=== PATIENT | male | born 1955 ===

== ENCOUNTER 2020-06-07 15:56 | Inpatient (IN) | payer OTHER, SELFPAY ==
[2020-06-07] VITALS (9 sets, daily range): BP systolic 97–129; BP diastolic 53–78; PULSE 81–93; RESP 17–23; TEMP 36.5–37.3; O2SAT 95–97; BMI 31.1
--- NOTE | 2020-06-07 | ECG_ITS ---
Test Reason : SYNCOPY Blood Pressure : / mmHG Vent. Rate : 076 BPM Atrial Rate : 076 BPM P-R Int : 142 ms QRS Dur : 106 ms QT Int : 428 ms P-R-T Axes : 030 061 037 degrees QTc Int : 481 ms Normal sinus rhythm Prolonged QT Abnormal ECG No previous ECGs available Referred By: Toño Shaikh Electronically Signed By:Mayco Londono
--- NOTE | ~2020-06-07 | CT_ITS ---
EXAMINATION: CT HEAD WITHOUT CONTRAST CLINICAL INFORMATION: Trauma COMPARISON: None TECHNIQUE: Contiguous axial imaging was performed from the skull base to vertex without intravenous administration of contrast. This CT examination was performed using dose optimization techniques as appropriate, variously including the following: *Automated exposure control *Adjustment of mA and/or kV according to patient size (this includes techniques or standardized protocols for targeted exams where dose is matched to indication/reason for exam; i.e. extremities or head) *Use of iterative reconstruction technique DLP: 640 mGy-cm FINDINGS: There is no evidence of acute intracranial hemorrhage or territorial infarction. No abnormal mass effect or midline shift is seen. [place] to white matter differentiation is well preserved. No extra-axial fluid collections are identified. The ventricles are normal in size. There is no abnormal attenuation within the brain parenchyma. The osseous structures and soft tissues are normal. The mastoid air cells and visualized portions of the paranasal sinuses are well aerated. CT/CT head/brain wo con IMPRESSION: No acute intracranial pathology.
--- NOTE | ~2020-06-07 | XR_ITS ---
EXAMINATION: XR CHEST CLINICAL INFORMATION: Syncope. COMPARISON: None TECHNIQUE: Frontal view of the chest was obtained. FINDINGS: The lungs are well-expanded without acute pneumonic process. The heart size and pulmonary vascularity is normal. No gross bony abnormality. XR/XR chest 1V IMPRESSION: No acute cardiopulmonary process seen.
[2020-06-07 16:06] LABS: Glucose, Whole Blood 115 mg/dL (60-115)
--- NOTE | 2020-06-07 16:08 | ECG_ITS ---
Test Reason : SYNCOPE Blood Pressure : / mmHG Vent. Rate : 080 BPM Atrial Rate : 080 BPM P-R Int : 130 ms QRS Dur : 100 ms QT Int : 464 ms P-R-T Axes : 030 047 037 degrees QTc Int : 535 ms Normal sinus rhythm Prolonged QT Abnormal ECG No previous ECGs available Referred By: Toño Shaikh Electronically Signed By:Mayco Londono
--- NOTE | 2020-06-07 16:22 | ED.SYNCOPE ---
HPI - Syncope General Chief Complaint: Syncope Stated Complaint: near syncope Time Seen by Provider: 06/07/20 16:21 Source: patient Mode of arrival: EMS Limitations: no limitations History of Present Illness HPI narrative: Patient states he got up from bed 1hour ago and passed out. He hit his head and face. Patient could not get up. Patient denies new medication, he is eating and drinking normally, patient is an alcoholic and he feels weak. MD complaint: loss of consciousness Onset (ago): minute(s) Prodromal symptoms: lightheaded Context: at rest Injuries sustained associated with event: head Related Data Home Medications Medication Instructions Recorded Confirmed atorvastatin 1 tab PO DAILY 06/07/20 06/07/20 empagliflozin [Jardiance] 1 tab PO DAILY 06/07/20 06/07/20 escitalopram oxalate 20 mg PO DAILY 06/07/20 06/07/20 folic acid 1 mg PO DAILY 06/07/20 06/07/20 glipizide 1 tab PO BID 06/07/20 06/07/20 lansoprazole 1 cap PO DAILY 06/07/20 06/07/20 lisinopril 1 tab PO DAILY 06/07/20 06/07/20 magnesium oxide 400 mg PO DAILY 06/07/20 06/07/20 metformin 1 tab PO BID 06/07/20 06/07/20 naltrexone 1 tab PO DAILY 06/07/20 06/07/20 pyridoxine (vitamin B6) [Vitamin 50 mg PO DAILY 06/07/20 06/07/20 B-6] thiamine HCl (vitamin B1) [Vitamin 100 mg PO DAILY 06/07/20 06/07/20 B-1] Allergies Allergy/AdvReac Type Severity Reaction Status Date / Time niacin [NIACIN] Allergy Unknown RED FLUSH, Unverified 12/16/19 14:59 SHAKING Review of Systems Constitutional: Constitutional: Reports no additional constitutional complaints Eyes: Eyes: Reports no additional eye complaints ENT: Denies dizziness Cardiovascular: Cardiovascular: Reports no additional cardiovascular complaints Respiratory: Respiratory: Reports as per HPI Gastrointestinal: Gastrointestinal: Reports no additional gastrointestinal complaints Musculoskeletal: Musculoskeletal: Reports no additional musculoskeletal complaints Integumentary/Breasts: Skin/Breast: Denies rash Neurologic: Reports system reviewed and no additional complaints, except as documented, Denies dizziness and Denies Sensory deficit (Neuro) Psychiatric: Psychiatric: Denies anxiety PMFSH Past Medical History Medical History Anxiety Depression Diabetes Neuropathy Social History Social History Alcohol intake: current Alcohol intake frequency: 3 or more drinks per day Alcohol type: beer, wine and hard liquor Smoking Status: Current every day smoker Use of substances other than those prescribed or required for medical reasons: No Advance Directives: No Advance Directives Information Provided: Yes Physical Exam Vital Signs: Vital Signs: Last Vital Signs Temp 99.0 F 06/07/20 22:17 Pulse 91 06/07/20 22:17 Resp 23 H 06/07/20 22:17 BP 129/78 06/07/20 22:17 Pulse Ox 95 06/07/20 22:17 Body Mass Index 31.1 Const: General: healthy appearing Nutritional Appearance: average body habitus Orientation/consciousness: oriented to person and patient oriented x3 Limitations: no limitations HENMT: Head: Yes normal to inspection Ears: external ears normal General nose exam: Normal external nose present Mouth: Normal oral and palatal mucosa present and oropharynx normal Throat: Yes posterior oropharynx normal Eyes: General: appearance normal, both eyes and all related structures Neck: Other: supple Neck: Yes normal visual inspection Chest: Chest palpation & inspection: normal inspection of the chest Resp: Auscultation: clear to auscultation bilaterally Cardio: Jugular venous distension: no JVD Rate: regular rate Rhythm: regular rhythm Heart sounds: S1 normal heart sound present and S2 normal heart sound present GI: Inspection: Yes normal to inspection Palpation (GI): Soft to palpation, nontender and No hepatosplenomegaly present Auscultation: normal bowel sounds : General: Yes no CVA tenderness Back/Spine/Pelvis: Back: no CVA tenderness Skin: General skin exam: no rashes or lesions noted Neuro: General: oriented to person and patient oriented x3 Cranial nerves: Yes CN's II-XII intact bilaterally Motor exam (neuro): 5/5 motor strength present throughout Sensory Exam: No Sensory deficit (Neuro) Extrem: General: Yes normal to inspection Psych: Appearance: grossly normal Course Course Course Narrative: resting comfortably will admit for syncope, no evidence of alcohol withdrawal at this time, hypernatremic MDM - Syncope MDM Narrative Medical decision making narrative: syncope Differential Diagnosis Differential diagnosis: Likely syncope due to orthostatic hypotension and vasovagal syncope Lab Data Result diagrams: 06/07/20 16:17 06/07/20 16:17 Labs: Lab Results 06/07/20 06/07/20 06/07/20 Range/Units 16:03 16:17 16:17 WBC 5.4 (4.8-10.8) X10*3/uL RBC 4.35 L (4.60-5.80) X10*6/uL Hgb 14.7 (14.0-18.0) g/dl Hct 43.5 (42-52) % MCV 100.0 H (80-98) fL MCH 33.8 H (27.0-33.0) pg MCHC 33.8 (31.0-36.0) g/dl RDW 13.7 (11.0-16.0) % Plt Count 160 (160-400) X10*3/uL MPV 10.4 (9.4-12.4) fL Immature Gran % (Auto) 0.4 (0.0-0.4) % Neut % (Auto) 56.1 (45-73) % Lymph % (Auto) 29.0 (20-40) % [place] % (Auto) 12.0 H (2-11) % Eos % (Auto) 1.9 (0-4) % Baso % (Auto) 0.6 (0-2) % Lymph # (Auto) 1.6 (1.2-4.9) X10*3/uL [place] # (Auto) 0.6 (0.1-1.2) X10*3/uL Eos # (Auto) 0.1 (0.0-0.4) X10*3/uL Baso # (Auto) 0.0 (0.0-0.2) X10*3/uL Abs Immat Gran (auto) 0.02 (0.00-0.03) X10*3/uL Absolute Neuts (auto) 3.0 (2.0-8.3) X10*3/uL Absolute Nucleated RBC 0.000 (0.0-0.012) X10*3/uL Nucleated RBC % (auto) 0.0 (0.0-0.2) /100WBC Hold Blue Top SEE NOTE Sodium (135-145) mmol/L Potassium (3.3-5.1) mmol/L Chloride (96-108) mmol/L Carbon Dioxide (22-29) mmol/L Anion Gap (12-20) BUN (9-16) mg/dL Creatinine (0.5-1.4) mg/dL Estim Creat Clear Calc Estimated GFR POC Glucose 115 (60-115) mg/dL Random Glucose (60-115) mg/dL Calcium (8.4-10.2) mg/dL Total Bilirubin (0.0-1.0) mg/dL Direct Bilirubin (0.0-0.5) mg/dL AST (5-37) U/L ALT (0-40) U/L Alkaline Phosphatase (39-117) U/L Troponin I High Sens (<3.5-35.0) ng/L Total Protein (6.5-8.0) g/dL Albumin (3.5-5.0) g/dL Ethyl Alcohol mg/dL COVID-19 ([facility]) (Negative) COVID-19 Clin Com 06/07/20 06/07/20 06/07/20 Range/Units 16:17 16:17 19:11 WBC (4.8-10.8) X10*3/uL RBC (4.60-5.80) X10*6/uL Hgb (14.0-18.0) g/dl Hct (42-52) % MCV (80-98) fL MCH (27.0-33.0) pg MCHC (31.0-36.0) g/dl RDW (11.0-16.0) % Plt Count (160-400) X10*3/uL MPV (9.4-12.4) fL Immature Gran % (Auto) (0.0-0.4) % Neut % (Auto) (45-73) % Lymph % (Auto) (20-40) % [place] % (Auto) (2-11) % Eos % (Auto) (0-4) % Baso % (Auto) (0-2) % Lymph # (Auto) (1.2-4.9) X10*3/uL [place] # (Auto) (0.1-1.2) X10*3/uL Eos # (Auto) (0.0-0.4) X10*3/uL Baso # (Auto) (0.0-0.2) X10*3/uL Abs Immat Gran (auto) (0.00-0.03) X10*3/uL Absolute Neuts (auto) (2.0-8.3) X10*3/uL Absolute Nucleated RBC (0.0-0.012) X10*3/uL Nucleated RBC % (auto) (0.0-0.2) /100WBC Hold Blue Top Sodium 146 H (135-145) mmol/L Potassium 3.7 (3.3-5.1) mmol/L Chloride 105 (96-108) mmol/L Carbon Dioxide 24 (22-29) mmol/L Anion Gap 21 H (12-20) BUN 7 L (9-16) mg/dL Creatinine 0.93 (0.5-1.4) mg/dL Estim Creat Clear Calc 85.3 Estimated GFR > 60 POC Glucose (60-115) mg/dL Random Glucose 134 H (60-115) mg/dL Calcium 8.3 L (8.4-10.2) mg/dL Total Bilirubin 0.7 (0.0-1.0) mg/dL Direct Bilirubin 0.4 (0.0-0.5) mg/dL AST 86 H (5-37) U/L ALT 70 H (0-40) U/L Alkaline Phosphatase 88 (39-117) U/L Troponin I High Sens 5.9 (<3.5-35.0) ng/L Total Protein 6.2 L (6.5-8.0) g/dL Albumin 3.8 (3.5-5.0) g/dL Ethyl Alcohol 114 mg/dL COVID-19 ([facility]) (Negative) COVID-19 Clin Com 06/07/20 Range/Units 19:11 WBC (4.8-10.8) X10*3/uL RBC (4.60-5.80) X10*6/uL Hgb (14.0-18.0) g/dl Hct (42-52) % MCV (80-98) fL MCH (27.0-33.0) pg MCHC (31.0-36.0) g/dl RDW (11.0-16.0) % Plt Count (160-400) X10*3/uL MPV (9.4-12.4) fL Immature Gran % (Auto) (0.0-0.4) % Neut % (Auto) (45-73) % Lymph % (Auto) (20-40) % [place] % (Auto) (2-11) % Eos % (Auto) (0-4) % Baso % (Auto) (0-2) % Lymph # (Auto) (1.2-4.9) X10*3/uL [place] # (Auto) (0.1-1.2) X10*3/uL Eos # (Auto) (0.0-0.4) X10*3/uL Baso # (Auto) (0.0-0.2) X10*3/uL Abs Immat Gran (auto) (0.00-0.03) X10*3/uL Absolute Neuts (auto) (2.0-8.3) X10*3/uL Absolute Nucleated RBC (0.0-0.012) X10*3/uL Nucleated RBC % (auto) (0.0-0.2) /100WBC Hold Blue Top Sodium (135-145) mmol/L Potassium (3.3-5.1) mmol/L Chloride (96-108) mmol/L Carbon Dioxide (22-29) mmol/L Anion Gap (12-20) BUN (9-16) mg/dL Creatinine (0.5-1.4) mg/dL Estim Creat Clear Calc Estimated GFR POC Glucose (60-115) mg/dL Random Glucose (60-115) mg/dL Calcium (8.4-10.2) mg/dL Total Bilirubin (0.0-1.0) mg/dL Direct Bilirubin (0.0-0.5) mg/dL AST (5-37) U/L ALT (0-40) U/L Alkaline Phosphatase (39-117) U/L Troponin I High Sens (<3.5-35.0) ng/L Total Protein (6.5-8.0) g/dL Albumin (3.5-5.0) g/dL Ethyl Alcohol mg/dL COVID-19 ([facility]) Negative (Negative) COVID-19 Clin Com See Note Imaging Data Chest x-ray: Radiologist's impression: no infiltrate CT scan - head: Radiologist's impression: no acute findings ECG Data Attestation: I personally reviewed and interpreted this ECG as follows: Interpretation: normal sinus rate 80, no st or twave changes Discharge Plan Discharge Clinical Impression: Syncope and collapse, Acute hypernatremia Patient Disposition: Admitted As Inpatient
[2020-06-07 16:24] LABS: MANUAL DIFF FLAG NO
[2020-06-07 16:30] LABS: Basophils Percent Auto 0.6 % (0-2); Eosinophils Absolute Auto 0.1 X10*3/uL (0.0-0.4); Eosinophils Percent Auto 1.9 % (0-4); Hematocrit 43.5 % (42-52); Hemoglobin 14.7 g/dl (14.0-18.0); Imm Gran Abs Auto 0.02 X10*3/uL (0.00-0.03); Imm Gran Pct Auto 0.4 % (0.0-0.4); Lymphocytes Absolute Auto 1.6 X10*3/uL (1.2-4.9); Mean Corpuscular HGB Conc 33.8 g/dl (31.0-36.0); Mean Corpuscular Hemoglobin 33.8 pg (27.0-33.0); Mean Platelet Volume 10.4 fL (9.4-12.4); Monocytes Absolute Auto 0.6 X10*3/uL (0.1-1.2); Neutrophils Percent Auto 56.1 % (45-73); Platelet Count 160 X10*3/uL (160-400); Red Blood Count 4.35 X10*6/uL (4.60-5.80); Red Cell Distribution Width 13.7 % (11.0-16.0); White Blood Count 5.4 X10*3/uL (4.8-10.8)
[2020-06-07] MEDS: 0.9 % Sodium Chloride 1,000 ML 500 ML IVCONT (16:50)
[2020-06-07 16:57] LABS: Anion Gap 21 (12-20); Blood Urea Nitrogen 7 mg/dL (9-16); Calcium 8.3 mg/dL (8.4-10.2); Carbon Dioxide 24 mmol/L (22-29); Chloride 105 mmol/L (96-108); Creatinine Clr Calc Pharmacy 85.3; Estimated Glomerular Filt Rate > 60; Glucose Random 134 mg/dL (60-115); Potassium 3.7 mmol/L (3.3-5.1); Sodium 146 mmol/L (135-145); Troponin-I High Sensitivity 5.9 ng/L (<3.5-35.0)
[2020-06-07 17:08] LABS: Alanine Aminotransferase 70 U/L (0-40); Albumin Level 3.8 g/dL (3.5-5.0); Alkaline Phosphatase 88 U/L (39-117); Aspartate Amino Transferase 86 U/L (5-37); Bilirubin Direct 0.4 mg/dL (0.0-0.5); Bilirubin Total 0.7 mg/dL (0.0-1.0); Total Protein 6.2 g/dL (6.5-8.0)
[2020-06-07 19:31] LABS: COVID-19 Test Negative (Negative); IDNOW Serial# 9DD0AD1C
[2020-06-07 19:56] LABS: Ethanol 114 mg/dL
--- NOTE | 2020-06-07 20:25 | PM.IMHP ---
History of Present Illness Date of Service: 06/07/20 Chief Complaint: syncope 64-year-old male with past medical history of alcohol abuse, hypertension, diabetes who presents to the hospital with syncopal episode. Patient reports that he was sleeping, got up to use the bathroom and had a syncopal episode. He says that he was down for about 1-2 minutes, he did not have any palpitations, dizziness, any prodromal symptoms or postictal episode. He does not remember how he fell but remember waking up on the floor knowing that he fell. He reports that he was drinking prior to this, was working in the [employer] and did not drink much fluids besides alcohol all day. He denies any fever or chills, no headache, no change in vision, no head trauma, no chest pain, no palpitations, no nausea vomiting or abdominal pain, no diarrhea constipation. No urinary symptoms and no lower extremity edema. No weakness tingling or numbness. Patient also reports that for the past 2 months he has been wheezing a lot of weight and has had low appetite. He has reports that he was 215 about 2 months ago and now is in 180s. Reports all on intentional. He is following up with his PCP regarding this and he is being worked up for it. On arrival to the ED patient vital significant for a blood pressure of 97/53 otherwise other vitals normal. Blood pressure did respond to fluids and currently is 110s over 70s. Labs are significant for WBC count of 5.4, hemoglobin of 14.7, hematocrit of 41, platelet of 147, potassium of 3.7, creatinine of 0.93, AST of 86, ALT of 70, COVID-19 negative, chest x-ray negative, CT head negative. Past medical history as below confirm with patient Patient drinks about 1 pt daily last drink was the day of presentation Review of Systems Review of Systems: Yes all other systems are reviewed and are negative [facility] Medical History (Updated 06/08/20 @ 06:33 by Laura Vieira MD) Alcohol abuse Anxiety Depression Diabetes Hypertension Neuropathy Pertinent family history: Diabetes Social History Household Members: Family Housing: House Do you presently have visiting nurse or other home services: No Alcohol intake: current Alcohol intake frequency: 3 or more drinks per day Alcohol type: beer, wine and hard liquor Smoking Status: Current some day smoker Tobacco Type: Cigarette Cigarettes Per Day: 3 Smoked in Last 30 Days: Yes Patient Interested in Nicotine Replacement: No Patient Given Instructions on How to Stop Smoking: No Second Hand Smoke Exposure: No Use of substances other than those prescribed or required for medical reasons: No Currently Displaying Signs/Symptoms of Drug Intoxication Withdrawal: No Any prior treatment program specific to substance use: No Have you been hit, kicked, punched, or otherwise hurt by someone within the past year? If so, by whom?: No Do you feel safe in your current relationship?: Yes Is there a partner from a previous relationship who is making you feel unsafe now?: No Are you made to feel afraid or neglected: No Advance Directives: No Advance Directives Information Provided: Yes Do you have thoughts of harming others: None Do you have a plan to hurt others: No Plan Recently lost weight without trying: No Meds Allergies Allergy/AdvReac Type Severity Reaction Status Date / Time niacin [NIACIN] Allergy Unknown RED FLUSH, Unverified 12/16/19 14:59 SHAKING Active Medications: Current Medications Generic Name Dose Route Start Last Admin Trade Name Freq PRN Reason Stop Dose Admin Pharmacy Consult 1 each 06/07/20 19:04 Consult Rx Perform Med Rec MISCELLANE ONCE PRN Consult order Home Medications Medication Instructions Recorded Confirmed Last Taken Type atorvastatin 1 tab PO DAILY 06/07/20 06/07/20 06/07/20 History empagliflozin [Jardiance] 1 tab PO DAILY 06/07/20 06/07/20 06/07/20 History escitalopram oxalate 20 mg PO DAILY 06/07/20 06/07/20 06/07/20 History folic acid 1 mg PO DAILY 06/07/20 06/07/20 06/07/20 History glipizide 1 tab PO BID 06/07/20 06/07/20 06/07/20 History lansoprazole 1 cap PO DAILY 06/07/20 06/07/20 06/07/20 History lisinopril 1 tab PO DAILY 06/07/20 06/07/20 06/07/20 History magnesium oxide 400 mg PO DAILY 06/07/20 06/07/20 06/07/20 History metformin 1 tab PO BID 06/07/20 06/07/20 06/07/20 History naltrexone 1 tab PO DAILY 06/07/20 06/07/20 06/07/20 History pyridoxine (vitamin B6) [Vitamin 50 mg PO DAILY 06/07/20 06/07/20 06/07/20 History B-6] thiamine HCl (vitamin B1) [Vitamin 100 mg PO DAILY 06/07/20 06/07/20 06/07/20 History B-1] Physical Exam Vital Signs and Narrative: Vital Signs: Last Vital Signs Temp 99.2 F 06/07/20 20:13 Pulse 92 06/07/20 20:13 Resp 17 06/07/20 20:13 BP 117/75 06/07/20 20:13 Pulse Ox 96 06/07/20 20:13 Body Mass Index 31.1 Results Labs CBC and Chem 7: 06/08/20 04:26 06/08/20 04:26 Labs: Laboratory Results - last 24 hr 06/07/20 06/07/20 06/07/20 16:03 16:17 16:17 MCV 100.0 H MCH 33.8 H MCHC 33.8 RDW 13.7 Plt Count 160 MPV 10.4 Immature Gran % (Auto) 0.4 Neut % (Auto) 56.1 Lymph % (Auto) 29.0 [place] % (Auto) 12.0 H Eos % (Auto) 1.9 Baso % (Auto) 0.6 Lymph # (Auto) 1.6 [place] # (Auto) 0.6 Eos # (Auto) 0.1 Baso # (Auto) 0.0 Abs Immat Gran (auto) 0.02 Absolute Neuts (auto) 3.0 Absolute Nucleated RBC 0.000 Nucleated RBC % (auto) 0.0 Hold Blue Top SEE NOTE Anion Gap Estim Creat Clear Calc Estimated GFR POC Glucose 115 Random Glucose Calcium Total Bilirubin Direct Bilirubin AST ALT Alkaline Phosphatase Troponin I High Sens Total Protein Albumin Ethyl Alcohol COVID-19 ([facility]) COVID-19 Clin Com 06/07/20 06/07/20 06/07/20 16:17 16:17 19:11 MCV MCH MCHC RDW Plt Count MPV Immature Gran % (Auto) Neut % (Auto) Lymph % (Auto) [place] % (Auto) Eos % (Auto) Baso % (Auto) Lymph # (Auto) [place] # (Auto) Eos # (Auto) Baso # (Auto) Abs Immat Gran (auto) Absolute Neuts (auto) Absolute Nucleated RBC Nucleated RBC % (auto) Hold Blue Top Anion Gap 21 H Estim Creat Clear Calc 85.3 Estimated GFR > 60 POC Glucose Random Glucose 134 H Calcium 8.3 L Total Bilirubin 0.7 Direct Bilirubin 0.4 AST 86 H ALT 70 H Alkaline Phosphatase 88 Troponin I High Sens 5.9 Total Protein 6.2 L Albumin 3.8 Ethyl Alcohol 114 COVID-19 ([facility]) COVID-19 Clin Com 06/07/20 19:11 MCV MCH MCHC RDW Plt Count MPV Immature Gran % (Auto) Neut % (Auto) Lymph % (Auto) [place] % (Auto) Eos % (Auto) Baso % (Auto) Lymph # (Auto) [place] # (Auto) Eos # (Auto) Baso # (Auto) Abs Immat Gran (auto) Absolute Neuts (auto) Absolute Nucleated RBC Nucleated RBC % (auto) Hold Blue Top Anion Gap Estim Creat Clear Calc Estimated GFR POC Glucose Random Glucose Calcium Total Bilirubin Direct Bilirubin AST ALT Alkaline Phosphatase Troponin I High Sens Total Protein Albumin Ethyl Alcohol COVID-19 ([facility]) Negative COVID-19 Clin Com See Note Imaging Radiologist's Impressions: Impressions Chest X-Ray 06/07/20 16:08 IMPRESSION: No acute cardiopulmonary process seen. Head CT 06/07/20 16:46 IMPRESSION: No acute intracranial pathology. Assessment and Plan (1) Syncope and collapse: Status: Acute (2) Alcohol abuse: Status: Inactive (3) Hypotension: Status: Acute This is a 64-year-old male with past medical history of diabetes, hypertension and alcohol abuse who presents to the hospital with syncopal episode # syncope - most likely secondary to alcohol abuse versus orthostatic, as patient was drinking prior to the episode as well as he was sleeping got up out of the bed and had the syncope - although orthostatic vitals are normal patient received fluids before orthostatic vitals were taken therefore may not be accurate results - with admitted to telemetry - hold off on echocardiogram at this time # alcohol abuse - drinks about 1 pt daily - will start him on phenobarbital for potential withdrawal - continue thiamine and folic acid # hypotension -most likely secondary to dehydration - patient has no evidence of infection - afebrile, no leukocytosis - responded to IV fluids - will continue to monitor off antibiotics - cultured and will follow cultures - hold off antihypertensive at this time # diabetes - will hold oral meds - start low-dose sliding scale insulin # depression - continue escitalopram # GERD - continue lansoprazole DVT prophylaxis:lovenox
[2020-06-07] MEDS: PHENobarbitaL sodium 130 MG/ML VIAL 255 MG IM (21:32)
[2020-06-07] MEDS: Enoxaparin Sodium 40 MG/0.4 ML SYRINGE SUBCUT (21:34)
[2020-06-08] VITALS (7 sets, daily range): BP systolic 114–138; BP diastolic 73–80; PULSE 75–91; RESP 18; TEMP 36.7–37.5; O2SAT 94–97
[2020-06-08] MEDS: 0.9 % Sodium Chloride Flush 3 ML SYRINGE IVFLUSH ×2 (00:31→09:22)
[2020-06-08] MEDS: PHENobarbitaL sodium 130 MG/ML VIAL 191 MG IM ×2 (01:20→04:24)
[2020-06-08 04:31] LABS: MANUAL DIFF FLAG NO
[2020-06-08 04:38] LABS: Basophils Absolute Auto 0.1 X10*3/uL (0.0-0.2); Basophils Percent Auto 0.7 % (0-2); Eosinophils Percent Auto 0.5 % (0-4); Hemoglobin 13.9 g/dl (14.0-18.0); Imm Gran Abs Auto 0.03 X10*3/uL (0.00-0.03); Imm Gran Pct Auto 0.4 % (0.0-0.4); Lymphocytes Absolute Auto 1.5 X10*3/uL (1.2-4.9); Lymphocytes Percent Auto 20.2 % (20-40); Mean Corpuscular HGB Conc 33.9 g/dl (31.0-36.0); Mean Corpuscular Hemoglobin 33.6 pg (27.0-33.0); Mean Platelet Volume 10.1 fL (9.4-12.4); Monocytes Absolute Auto 0.9 X10*3/uL (0.1-1.2); Monocytes Percent Auto 12.1 % (2-11); Neutrophils Absolute Auto 4.9 X10*3/uL (2.0-8.3); Neutrophils Percent Auto 66.1 % (45-73); Platelet Count 147 X10*3/uL (160-400); Red Blood Count 4.14 X10*6/uL (4.60-5.80); Red Cell Distribution Width 13.5 % (11.0-16.0); White Blood Count 7.5 X10*3/uL (4.8-10.8)
[2020-06-08 04:53] LABS: Anion Gap 17 (12-20); Blood Urea Nitrogen 7 mg/dL (9-16); Calcium 7.9 mg/dL (8.4-10.2); Carbon Dioxide 29 mmol/L (22-29); Chloride 98 mmol/L (96-108); Creatinine Clr Calc Pharmacy 108.6; Estimated Glomerular Filt Rate > 60; Glucose Random 100 mg/dL (60-115); Sodium 141 mmol/L (135-145)
[2020-06-08] MEDS: Omeprazole 20 MG CAPSULE.DR PO (06:25)
[2020-06-08] MEDS: Potassium Chloride Packet 20 MEQ PACKET 40 MEQ PO (06:42)
[2020-06-08 08:35] LABS: Glucose, Whole Blood 95 mg/dL (60-115)
[2020-06-08] MEDS: Atorvastatin Calcium 80 MG TABLET PO (09:21)
[2020-06-08] MEDS: Thiamine HCL 100 MG TABLET PO (09:21)
[2020-06-08] MEDS: Escitalopram Oxalate 20 MG TABLET PO (09:21)
[2020-06-08] MEDS: Potassium Chloride ER 20 MEQ TAB.ER.PRT PO (09:21)
[2020-06-08] MEDS: Magnesium Oxide 400 MG TABLET PO (09:21)
[2020-06-08] MEDS: PHENobarbitaL 15 MG TABLET 45 MG PO (09:21)
[2020-06-08] MEDS: Folic Acid 1 MG TABLET PO (09:22)
[2020-06-08] MEDS: Naltrexone HCl 50 MG TABLET PO (09:22)
--- NOTE | 2020-06-08 10:56 | PC.NURSE ---
orthos laying 114/73 p 75, sitting 129/80 p 80 , standing 119/79 p 86
--- NOTE | 2020-06-08 11:03 | PM.DS ---
DS: Providers Provider Date of Service: 06/08/20 Date of admission: 06/07/20 20:24 Primary care physician: Brissa Turner MD DS: Diagnosis Discharge Diagnosis (1) Syncope and collapse: Status: Acute (2) Alcohol abuse: Status: Inactive (3) Hypotension: Status: Acute (4) Acute hypernatremia: Status: Acute DS: Medications Discharge Medications Home Medications: Home Medications Medication Instructions Recorded Confirmed Jardiance 1 tab PO DAILY 06/07/20 06/07/20 atorvastatin 1 tab PO DAILY 06/07/20 06/07/20 escitalopram oxalate 20 mg PO DAILY 06/07/20 06/07/20 folic acid 1 mg PO DAILY 06/07/20 06/07/20 glipizide 1 tab PO BID 06/07/20 06/07/20 lansoprazole 1 cap PO DAILY 06/07/20 06/07/20 lisinopril 1 tab PO DAILY 06/07/20 06/07/20 magnesium oxide 400 mg PO DAILY 06/07/20 06/07/20 metformin 1 tab PO BID 06/07/20 06/07/20 naltrexone 1 tab PO DAILY 06/07/20 06/07/20 pyridoxine (vitamin B6) [Vitamin 50 mg PO DAILY 06/07/20 06/07/20 B-6] thiamine HCl (vitamin B1) 100 mg PO DAILY 06/07/20 06/07/20 DS: Summary Hospital Course Hospital Course: Admission note HPI 64-year-old male with past medical history of alcohol abuse, hypertension, diabetes who presents to the hospital with syncopal episode. Patient reports that he was sleeping, got up to use the bathroom and had a syncopal episode. He says that he was down for about 1-2 minutes, he did not have any palpitations, dizziness, any prodromal symptoms or postictal episode. He does not remember how he fell but remember waking up on the floor knowing that he fell. He reports that he was drinking prior to this, was working in the [email or web address] and did not drink much fluids besides alcohol all day. He denies any fever or chills, no headache, no change in vision, no head trauma, no chest pain, no palpitations, no nausea vomiting or abdominal pain, no diarrhea constipation. No urinary symptoms and no lower extremity edema. No weakness tingling or numbness. Patient also reports that for the past 2 months he has been wheezing a lot of weight and has had low appetite. He has reports that he was 215 about 2 months ago and now is in 180s. Reports all on intentional. He is following up with his PCP regarding this and he is being worked up for it. On arrival to the ED patient vital significant for a blood pressure of 97/53 otherwise other vitals normal. Blood pressure did respond to fluids and currently is 110s over 70s. Labs are significant for WBC count of 5.4, hemoglobin of 14.7, hematocrit of 41, platelet of 147, potassium of 3.7, creatinine of 0.93, AST of 86, ALT of 70, COVID-19 negative, chest x-ray negative, CT head negative. Hospital course The patient was admitted to the hospital for an episode of syncope. Seems to be related to intoxication with alcohol. He was noted to have low blood pressure at time of presentation which improved significantly after hydration. Noted to have hypernatremia which is also related to dehydration which improved after hydration. The patient felt much better the next morning and back to his normal self. Monitored on telemetry with no abnormal arrhythmia or pauses. Repeated orthostatic readings within normal. He was kept on phenobarbital for risk of withdrawal. To be discharged home on his home medication with advised to quit drinking alcohol. Time Spent with Patient Time attestation: Total time spent providing and/or coordinating discharge services: Discharge coordination time: Greater than 30 minutes Physical Exam Vital Signs: Vital Signs: Last Vital Signs Temp 98.9 F 06/08/20 07:26 Pulse 86 06/08/20 08:00 Resp 18 06/08/20 07:26 BP 119/79 06/08/20 08:00 Pulse Ox 97 06/08/20 07:26 Body Mass Index 31.1 Const: Other: Constitutional : Alert, oriented, not in distress Neck : Normal inspection, Supple Cardiovascular : RRR, S1 S2, no lower extremity edema Respiratory : Good bilateral air entry, no crackles, wheezes or rhonchi Gastrointestinal: soft, lax, Normal bowel sounds, Non tender Skin : Warm/Dry, No rash Neurological : Alert & oriented x3, No focal deficit DS: Data Data Completed and Pending Labs on day of discharge: Laboratory Results - last 24 hr 06/07/20 06/07/20 06/07/20 16:03 16:17 16:17 WBC 5.4 RBC 4.35 L Hgb 14.7 Hct 43.5 MCV 100.0 H MCH 33.8 H MCHC 33.8 RDW 13.7 Plt Count 160 MPV 10.4 Immature Gran % (Auto) 0.4 Neut % (Auto) 56.1 Lymph % (Auto) 29.0 [place] % (Auto) 12.0 H Eos % (Auto) 1.9 Baso % (Auto) 0.6 Lymph # (Auto) 1.6 [place] # (Auto) 0.6 Eos # (Auto) 0.1 Baso # (Auto) 0.0 Abs Immat Gran (auto) 0.02 Absolute Neuts (auto) 3.0 Absolute Nucleated RBC 0.000 Nucleated RBC % (auto) 0.0 Hold Blue Top SEE NOTE Sodium Potassium Chloride Carbon Dioxide Anion Gap BUN Creatinine Estim Creat Clear Calc Estimated GFR POC Glucose 115 Random Glucose Calcium Total Bilirubin Direct Bilirubin AST ALT Alkaline Phosphatase Troponin I High Sens Total Protein Albumin Ethyl Alcohol COVID-19 (AGUSTINA) COVIDOpzi 06/07/20 06/07/20 06/07/20 16:17 16:17 19:11 WBC RBC Hgb Hct MCV MCH MCHC RDW Plt Count MPV Immature Gran % (Auto) Neut % (Auto) Lymph % (Auto) [place] % (Auto) Eos % (Auto) Baso % (Auto) Lymph # (Auto) [place] # (Auto) Eos # (Auto) Baso # (Auto) Abs Immat Gran (auto) Absolute Neuts (auto) Absolute Nucleated RBC Nucleated RBC % (auto) Hold Blue Top Sodium 146 H Potassium 3.7 Chloride 105 Carbon Dioxide 24 Anion Gap 21 H BUN 7 L Creatinine 0.93 Estim Creat Clear Calc 85.3 Estimated GFR > 60 POC Glucose Random Glucose 134 H Calcium 8.3 L Total Bilirubin 0.7 Direct Bilirubin 0.4 AST 86 H ALT 70 H Alkaline Phosphatase 88 Troponin I High Sens 5.9 Total Protein 6.2 L Albumin 3.8 Ethyl Alcohol 114 COVID-19 ([place]INA) COVIDOpzi 06/07/20 06/08/20 06/08/20 19:11 04:26 04:26 WBC 7.5 RBC 4.14 L Hgb 13.9 L Hct 41.0 L MCV 99.0 H MCH 33.6 H MCHC 33.9 RDW 13.5 Plt Count 147 L MPV 10.1 Immature Gran % (Auto) 0.4 Neut % (Auto) 66.1 Lymph % (Auto) 20.2 [place] % (Auto) 12.1 H Eos % (Auto) 0.5 Baso % (Auto) 0.7 Lymph # (Auto) 1.5 [place] # (Auto) 0.9 Eos # (Auto) 0.0 Baso # (Auto) 0.1 Abs Immat Gran (auto) 0.03 Absolute Neuts (auto) 4.9 Absolute Nucleated RBC 0.000 Nucleated RBC % (auto) 0.0 Hold Blue Top Sodium 141 Potassium 3.0 L Chloride 98 Carbon Dioxide 29 Anion Gap 17 BUN 7 L Creatinine 0.73 Estim Creat Clear Calc 108.6 Estimated GFR > 60 POC Glucose Random Glucose 100 Calcium 7.9 L Total Bilirubin Direct Bilirubin AST ALT Alkaline Phosphatase Troponin I High Sens Total Protein Albumin Ethyl Alcohol COVID-19 ([place]) Negative COVID-19 Clin Com See Note 06/08/20 07:26 WBC RBC Hgb Hct MCV MCH MCHC RDW Plt Count MPV Immature Gran % (Auto) Neut % (Auto) Lymph % (Auto) [place] % (Auto) Eos % (Auto) Baso % (Auto) Lymph # (Auto) [place] # (Auto) Eos # (Auto) Baso # (Auto) Abs Immat Gran (auto) Absolute Neuts (auto) Absolute Nucleated RBC Nucleated RBC % (auto) Hold Blue Top Sodium Potassium Chloride Carbon Dioxide Anion Gap BUN Creatinine Estim Creat Clear Calc Estimated GFR POC Glucose 95 Random Glucose Calcium Total Bilirubin Direct Bilirubin AST ALT Alkaline Phosphatase Troponin I High Sens Total Protein Albumin Ethyl Alcohol COVID-19 ([facility]) COVID-19 Clin Com Discharge Plan Discharge Patient Disposition: Home, Self-Care Referrals: Brissa Turner MD [Primary Care Provider] - Discharge Medications: Continued thiamine HCl (vitamin B1) 100 mg/mL Solution 100 mg PO DAILY RF: 0 folic acid 1 mg Tablet 1 mg PO DAILY RF: 0 pyridoxine (vitamin B6) [Vitamin B-6] 100 mg Tablet 50 mg PO DAILY RF: 0 escitalopram oxalate 20 mg Tablet 20 mg PO DAILY RF: 0 magnesium oxide 400 mg magnesium Tablet 400 mg PO DAILY RF: 0 atorvastatin 80 mg tablet 1 tab PO DAILY RF: 0 glipizide 10 mg tablet extended release 24hr 1 tab PO BID RF: 0 naltrexone 50 mg tablet 1 tab PO DAILY RF: 0 metformin 1,000 mg tablet 1 tab PO BID RF: 0 lansoprazole 30 mg capsule,delayed release(DR/EC) 1 cap PO DAILY RF: 0 lisinopril 40 mg tablet 1 tab PO DAILY RF: 0 Jardiance 25 mg tablet 1 tab PO DAILY RF: 0 Discharge Orders: Discharge Order (Routine); Ordered 06/08/20 Ordered By: Murphy Toussaint Diet: advance to usual diet Activity on Discharge: As tolerated Stand Alone Forms: Patient Portal Discharge page Care Plan Goals: Read below Health Concerns: Read below Plan of Treatment: You were admitted to the hospital for evaluation of syncopal episode. Your brain CT, heart monitor, blood tests did not show any acute events. You were monitored on telemetry which did not show any abnormal heart arrhythmia. Your blood pressure was noted to be low and has improved the next morning after hydration. We advise you to quit drinking Continue home medications
[2020-06-08 11:27] LABS: Glucose, Whole Blood 142 mg/dL (60-115)
--- NOTE | 2020-06-08 11:53 | MHC.CM.PN ---
EMR REVIEWED, PT ADMITTED W/SYNCOPE & ETOH WITHDRAWAL, CM MET WITH PT WHO IS ALERT & ORIENTED, PT REPORTS HE LIVES WITH AND HIS OLDER DAUGHTER, PT REPORTS HE IS INDEPENDENT WITH ALL CARE AND DENIES DME/HOME SERVICES, PT REPORTS HE WAS STARTED ON NALTREXONE AND HIS ANTIDEPRESSANT FOR ETOH CRAVINGS BY PCP SHAYY BRUNO, PT DENIES HAVING BEEN TO A DETOX PRIOR TO, PT DENIES USING AA OR OTHER PROGRAM AND REPORTS HE DID IT ON HIS OWN, PT REPORTS HE HAD BEEN DRINKING MORE SINCE COVID BEGAN AND WAS DRTINKING A PINT OF VODKA DAILY. CM OFFERED PT CARE TEAM AND ENCOURAGED PT TO GO TO DETOX, PT DECLINING AT THIS TIME AND WAS GIVEN A LIST OF DETOXES AND A LIST OF THERAPY & COUNSELING PROVIDERS IN THE AREA FOR PT TO FOLLOW-UP WITH ON HIS OWN, PT DECLINED FEELING READY AT THIS TIME AND REPORTS HE WANTS TO GIVE THE NALTREXONE MORE TIME, PT ADVISED TO RETURN TO ED IF HE FEELS LIKE HES GOING INTO WITHDRAWALS AGAIN AND WAS EDUCATED ON SIGNS & SYMPTOMS. DISCHARGE PLAN: HOME SELF-CARE, FAMILY TO TRANSPORT. PCP: SHAYY SYKES
--- NOTE | 2020-06-08 14:48 | MHC.CM.PN ---
PT DISCHARGED TODAY HOME SELF-CARE, DAUGHTER TRANSPORTED PT.
== END 2020-06-08 12:49 | disposition home or self-care (01) | DRG 426 ==
LOC: HO.ED 18:48 → HO.EDOVER 20:29 → HO.S3 21:34
PROVIDERS: Admitting Provider Internal Medicine; Emergency Provider Emergency Medicine; PCP Internal Medicine; Visit Provider Student in an Organized Health Care Education/Training Program
DX: E87.0 Hyperosmolality and hypernatremia (principal); I95.9 Hypotension, unspecified; F10.20 Alcohol dependence, uncomplicated; K21.9 Gastro-esophageal reflux disease without esophagitis; F32.9 Major depressive disorder, single episode, unspecified; Z20.822 Contact with and (suspected) exposure to COVID-19; Z79.899 Other long term (current) drug therapy
CPT/HCPCS: 36415; 70450; 71045; 80048; 80076; 80320; 82947; 84484; 85025; 87635; 93005; 99285; J1650; J2560

== ENCOUNTER 2020-08-04 12:16 | Outpatient (REF) | payer OTHER, SELFPAY ==
[2020-08-04 14:22] LABS: Glucose Urine UA >=1000 MG/DL (NEG); Leukocyte Esterase Urine NEG (NEG); Nitrite Urine NEG (NEG); PH 5.5 (5.0-8.0); Specific Gravity - Urine 1.025 (1.005-1.025); Urine Blood NEG (NEG); Urine Ketones NEG (NEG); Urine Protein NEG (NEG-TRACE)
[2020-08-04 14:24] LABS: Appearance Urine CLEAR; Color Urine YELLOW
[2020-08-04 14:25] LABS: Hematocrit 44.2 % (42-52); Hemoglobin 14.7 g/dl (14.0-18.0); Mean Corpuscular HGB Conc 33.3 g/dl (31.0-36.0); Mean Corpuscular Hemoglobin 33.1 pg (27.0-33.0); Mean Corpuscular Volume 99.5 fL (80-98); Mean Platelet Volume 10.8 fL (9.4-12.4); Platelet Count 262 X10*3/uL (160-400); Red Blood Count 4.44 X10*6/uL (4.60-5.80); Red Cell Distribution Width 13.9 % (11.0-16.0); White Blood Count 9.1 X10*3/uL (4.8-10.8)
[2020-08-04 14:29] LABS: RBC Urine 0 /HPF (0); Squamous Epithelial Cell Urine TRACE /LPF; WBC Urine 0 /HPF (0-4)
[2020-08-04 14:33] LABS: Estimated Average Glucose 137 mg/dL; Hemoglobin A1c % 6.4 %
[2020-08-04 14:50] LABS: Creatinine Urine 72.93 mg/dL; Microalbum/Creatinine Ratio Ur 10.9 ug/mg cr
[2020-08-04 14:54] LABS: Alanine Aminotransferase 36 U/L (0-40); Albumin Level 4.5 g/dL (3.5-5.0); Alkaline Phosphatase 74 U/L (39-117); Anion Gap 16 (12-20); Aspartate Amino Transferase 42 U/L (5-37); Bilirubin Total 1.2 mg/dL (0.0-1.0); Blood Urea Nitrogen 10 mg/dL (9-16); Calcium 9.9 mg/dL (8.4-10.2); Carbon Dioxide 26 mmol/L (22-29); Chloride 103 mmol/L (96-108); Cholesterol 180 mg/dL; Estimated Glomerular Filt Rate > 60; Glucose Random 114 mg/dL (60-115); HDL Cholesterol 81 mg/dL; LDL Cholesterol Calculated 55 mg/dl; Potassium 4.2 mmol/L (3.3-5.1); Sodium 141 mmol/L (135-145); Total Protein 7.3 g/dL (6.5-8.0); Triglycerides 222 mg/dL
[2020-08-04 15:14] LABS: Vitamin B12 410 pg/mL (200-900)
[2020-08-04 15:17] LABS: Prostate Specific Antigen Scr 2.77 ng/mL (<0.05-4.0)
[2020-08-05 06:48] LABS: LDL Cholesterol Direct 54 mg/dL (<100)
[2020-08-09 06:17] LABS: Fructosamine 251 umol/L (205-285)
== END 2020-08-04 12:17 | disposition home or self-care (01) ==
LOC: HO.LAB 12:16
PROVIDERS: PCP Family Medicine; Visit Provider Internal Medicine Endocrinology, Diabetes & Metabolism
DX: Z00.00 Encounter for general adult medical examination without abnormal findings (principal); Z12.5 Encounter for screening for malignant neoplasm of prostate; E11.40 Type 2 diabetes mellitus with diabetic neuropathy, unspecified; E11.42 Type 2 diabetes mellitus with diabetic polyneuropathy; E78.5 Hyperlipidemia, unspecified; I10 Essential (primary) hypertension
CPT/HCPCS: 36415; 80053; 80061; 81001; 82043; 82607; 82947; 82985; 83036; 83721; 84153; 84443; 85027

== ENCOUNTER → 2020-08-10 10:48 | Outpatient (BNVA) | payer OTHER, SELFPAY | PROVIDERS: PCP Family Medicine; Visit Provider Dietitian, Registered | DX: E11.9 Type 2 diabetes mellitus without complications (principal) | CPT/HCPCS: 97802 ==

== ENCOUNTER → 2020-08-18 09:46 | Outpatient (BNVA) | payer OTHER, SELFPAY | PROVIDERS: PCP Family Medicine; Visit Provider Internal Medicine Endocrinology, Diabetes & Metabolism ==

== ENCOUNTER → 2020-09-19 09:46 | Outpatient (BNVA) | payer OTHER, SELFPAY | PROVIDERS: PCP Family Medicine; Referring Provider Family Medicine; Visit Provider Nurse Practitioner Family ==

== ENCOUNTER 2020-10-16 11:28 | Day surgery (SDC) | payer OTHER, SELFPAY ==
[2020-10-10 12:20] VITALS: BMI 27.7
--- NOTE | 2020-10-13 12:14 | HO.ANESPROP2 ---
HPI - Anesthesia Eval Consult details Narrative: 64yo M for Colonoscopy [facility] admit 05/2020 with syncope r/t ETOH intox. Monitored on telemetry with no abnormal arrhythmia or pauses. Repeated orthostatic readings within normal. D/C home after IV hydration next day. +ETOH PMFSH Active Problems Active Problems: All Active Problems (Updated 08/21/20 @ 09:16 by Balbir Schmid MD) Diabetes mellitus with neuropathy (Acute) Essential hypertension (Acute) Hyperlipidemia (Acute) Colon polyps (Acute) Annual physical exam (Acute) Elevated transaminase level (Acute) Screening for colon cancer (Acute) Screening for prostate cancer (Acute) Diabetes type 2, uncontrolled (Acute) PVD (peripheral vascular disease) (Acute) Diabetic polyneuropathy associated with type 2 diabetes mellitus (Acute) Diabetes type 2, controlled (Acute) Past Medical History Medical History Alcohol abuse Anxiety Depression Diabetes Diabetes type 2, controlled Diabetes type 2, uncontrolled Diabetic polyneuropathy associated with type 2 diabetes mellitus Hypertension Neuropathy PVD (peripheral vascular disease) Family History Family History Mother No problems noted. Father No problems noted. Surgical History Surgical History H/O colonoscopy Social History Social History Household Members: Family Housing: House Do you presently have visiting nurse or other home services: No Alcohol intake: former Patient Tobacco Use Status: Current everyday Tobacco user Cigarettes Per Day: 4 Second Hand Smoke Exposure: No service: No Current occupational status: retired [employer] Allergies Allergy/AdvReac Type Severity Reaction Status Date / Time niacin [NIACIN] AdvReac Mild RED FLUSH, Verified 10/10/20 12:19 SHAKING Home Medications Medication Instructions Recorded Confirmed Last Taken Type atorvastatin 1 tab PO DAILY 06/07/20 10/10/20 06/07/20 History lansoprazole 1 cap PO DAILY 06/07/20 10/10/20 06/07/20 History lisinopril 1 tab PO DAILY 06/07/20 10/10/20 06/07/20 History magnesium oxide 400 mg PO DAILY 06/07/20 10/10/20 06/07/20 History naltrexone 1 tab PO DAILY 06/07/20 10/10/20 06/07/20 History pyridoxine (vitamin B6) [Vitamin 50 mg PO DAILY 06/07/20 10/10/20 06/07/20 History B-6] Exam Exam Date and Time: October 13, 2020 1214 Height,Weight and Vital Signs: Height 5 ft 9 in Weight 85.275 kg Pertinent Lab Results Pertinent Lab Results: Laboratory Tests 08/04/20 08/04/20 13:45 13:45 WBC 9.1 Hgb 14.7 Hct 44.2 Plt Count 262 D Sodium 141 Potassium 4.2 D Chloride 103 Carbon Dioxide 26 BUN 10 Creatinine 0.65 Narrative Narrative: EKG 05/2020 Vent. Rate : 080 BPM Atrial Rate : 080 BPM P-R Int : 130 ms QRS Dur : 100 ms QT Int : 464 ms P-R-T Axes : 030 047 037 degrees QTc Int : 535 ms Normal sinus rhythm Prolonged QT Abnormal ECG No previous ECGs available Assessment and Plan Assessment Anesthesia Assessment: Chart Reviewed
--- NOTE | 2020-10-16 10:56 | HO.ANESPROP2 ---
[facility] Active Problems Active Problems: All Active Problems (Updated 08/21/20 @ 09:16 by Balbir Schmid MD) Diabetes mellitus with neuropathy (Acute) Essential hypertension (Acute) Hyperlipidemia (Acute) Colon polyps (Acute) Annual physical exam (Acute) Elevated transaminase level (Acute) Screening for colon cancer (Acute) Screening for prostate cancer (Acute) Diabetes type 2, uncontrolled (Acute) PVD (peripheral vascular disease) (Acute) Diabetic polyneuropathy associated with type 2 diabetes mellitus (Acute) Diabetes type 2, controlled (Acute) Past Medical History Medical History Alcohol abuse Anxiety Depression Diabetes Diabetes type 2, controlled Diabetes type 2, uncontrolled Diabetic polyneuropathy associated with type 2 diabetes mellitus Hypertension Neuropathy PVD (peripheral vascular disease) Family History Family History Mother No problems noted. Father No problems noted. Surgical History Surgical History H/O colonoscopy Social History Social History Household Members: Family Housing: House Do you presently have visiting nurse or other home services: No Alcohol intake: former Cigarettes Per Day: 4 Second Hand Smoke Exposure: No service: No Current occupational status: retired [employer] Allergies Allergy/AdvReac Type Severity Reaction Status Date / Time niacin [NIACIN] AdvReac Mild RED FLUSH, Verified 10/10/20 12:19 SHAKING Home Medications Medication Instructions Recorded Confirmed Last Taken Type atorvastatin 1 tab PO DAILY 06/07/20 10/10/20 06/07/20 History lansoprazole 1 cap PO DAILY 06/07/20 10/10/20 06/07/20 History lisinopril 1 tab PO DAILY 06/07/20 10/10/20 06/07/20 History magnesium oxide 400 mg PO DAILY 06/07/20 10/10/20 06/07/20 History naltrexone 1 tab PO DAILY 06/07/20 10/10/20 06/07/20 History pyridoxine (vitamin B6) [Vitamin 50 mg PO DAILY 06/07/20 10/10/20 06/07/20 History B-6] Exam Exam Date and Time: October 16, 2020 1056 Height,Weight and Vital Signs: Height 5 ft 9 in Weight 85.275 kg Airway Mallampati Class: III TM Dist: >3cm Neck ROM: Full Heart: RRR Lungs: CTA
--- NOTE | 2020-10-16 11:35 | P.CONAN_ITS ---
[facility] Active Problems Active Problems: All Active Problems (Updated 08/21/20 @ 09:16 by Balbir bhagat MD) Diabetes mellitus with neuropathy (Acute) Essential hypertension (Acute) Hyperlipidemia (Acute) Colon polyps (Acute) Annual physical exam (Acute) Elevated transaminase level (Acute) Screening for colon cancer (Acute) Screening for prostate cancer (Acute) Diabetes type 2, uncontrolled (Acute) PVD (peripheral vascular disease) (Acute) Diabetic polyneuropathy associated with type 2 diabetes mellitus (Acute) Diabetes type 2, controlled (Acute) Past Medical History Medical History Alcohol abuse Anxiety Depression Diabetes Diabetes type 2, controlled Diabetes type 2, uncontrolled Diabetic polyneuropathy associated with type 2 diabetes mellitus Hypertension Neuropathy PVD (peripheral vascular disease) Family History Family History Mother No problems noted. Father No problems noted. Surgical History Surgical History H/O colonoscopy Social History Social History Household Members: Family Housing: House Do you presently have visiting nurse or other home services: No Alcohol intake: former Cigarettes Per Day: 4 Second Hand Smoke Exposure: No Advance Directives: No Advance Directives Information Provided: Yes service: No Current occupational status: retired Meds Allergies Allergy/AdvReac Type Severity Reaction Status Date / Time niacin [NIACIN] AdvReac Mild RED FLUSH, Verified 10/10/20 12:19 SHAKING Home Medications Medication Instructions Recorded Confirmed Last Taken Type atorvastatin 1 tab PO DAILY 06/07/20 10/10/20 06/07/20 History lansoprazole 1 cap PO DAILY 06/07/20 10/10/20 06/07/20 History lisinopril 1 tab PO DAILY 06/07/20 10/10/20 06/07/20 History magnesium oxide 400 mg PO DAILY 06/07/20 10/10/20 06/07/20 History naltrexone 1 tab PO DAILY 06/07/20 10/10/20 06/07/20 History pyridoxine (vitamin B6) [Vitamin 50 mg PO DAILY 06/07/20 10/10/20 06/07/20 History B-6] Exam Exam Date and Time: October 16, 2020 1135 Height,Weight and Vital Signs: Height 5 ft 9 in Weight 85.275 kg Airway Mallampati Class: III TM Dist: >3cm Neck ROM: Full Heart: RRR Lungs: CTA
[2020-10-16 11:43] VITALS: BP 132/79; PULSE 75; RESP 17; TEMP 36.9; O2SAT 97
[2020-10-16] MEDS: Lactated Ringers 1,000 ML 100 ML IVCONT (11:53)
--- NOTE | 2020-10-16 11:54 | PC.NURSE ---
last drink 10/14/20 no s/sx withdrawal
--- NOTE | 2020-10-16 11:59 | MHC.SHP ---
Pre-Procedural Eval Section A Date of Service: 10/16/20 Section B Chief Complaint: screening Details of Present Illness: brother had crc Relevant Family History (Specify if Yes): Yes Relevant Social History: Tobacco Use Present Medications: see Short Stay Collaborative assessment Medical History: Significant History (Alcohol abuse Anxiety Depression Diabetes Diabetes type 2, controlled Diabetes type 2, uncontrolled Diabetic polyneuropathy associated with type 2 diabetes mellitus Hypertension Neuropathy PVD (peripheral vascular disease)) Allergies: Allergies Allergy/AdvReac Type Severity Reaction Status Date / Time niacin [NIACIN] AdvReac Mild RED FLUSH, Verified 10/10/20 12:19 SHAKING Review of Systems Sugical H&P ROS: Negative: Constitution, Cardiovascular, Respiratory, Neurological, Psychiatric, Hem-Onc, Allergic/Immunologic, Gastrointestinal, Genitourinary, Musculoskeletal, Integumentary, Endocrine and Eyes/Ears/Nose/Throat Exam Surgical H&P Exam: Normal: HEENT, Normal: Heart, Normal: Lungs, Normal: Extremities, Normal: Abdomen, Normal: Skin and Normal: Neurological Plan I have reviewed the history and physical and performed a pertinent physical examination on my patient. No changes have occurred unless specified.
[2020-10-16 12:00] LABS: Glucose, Whole Blood 121 mg/dL (60-115)
--- NOTE | 2020-10-16 12:03 | P.OP_ITS ---
Operative Note Operative Note Date of Service: 10/16/20 Narrative: Operative Information Procedure Description: Colonoscopy COLONOSCOPY Instrument: Olympus variable stiffness pediatric scope 190L Colonoscopy Monitoring: Vital signs and clinical assessment, continuous EKG monitoring, Pulse oximetry, Carbon Dioxide monitoring and blood pressure monitoring were done throughout the procedure. Colon withdrawal time was 13 minutes. Procedure: The patient was placed in the left lateral decubitis position and pre-procedure medications were administered. After a digital rectal examination of the ano-rectum, the video colonoscope was inserted into the rectum and advanced through the colon to the cecum/TI. The colonoscope was slowly withdrawn in a retrograde panoramic fashion and the colon mucosa was carefully examined including a retroflexed view of the rectum. Findings and interventions are described below. Procedure Difficulty:easy Findings: Terminal Ileum-mild to moderate erythema noted, bx taken Cecum:normal Ascending Colon: normal, bx taken Transverse Colon -normal Descending Colon: patchy erythema, bx taken Sigmoid Colon: normal, bx taken Rectum: Retroflexion with small internal hemorrhoids, grade I, x 2 sessile polyps 8-10 mm removed with cold snare, random rectal bx taken Anorectum - normal Colon preparation: [place] Bowel Preparation Scale Right colon; 2 Transverse colon: 2 Left colon; 1 (0 = Unprepared colon segment with mucosa not seen due to solid stool that cannot be cleared. 1 = Portion of mucosa of the colon segment seen, but other areas of the colon segment not well seen due to staining, residual stool and/or opaque liquid. 2 = Minor amount of residual staining, small fragments of stool and/or opaque liquid, but mucosa of colon segment seen well. 3 = Entire mucosa of colon segment seen well with no residual staining, small f ragments of stool or opaque liquid) Impression and Post Procedure Diagnosis: polyps internal hemorrhoids ileitis Plan: High fiber diet leaflet Avoid straining at stool, epsom salts and sitz bath, anusol supps or cream Repeat Colonoscopy in 3-4 years due to prep and FH or earlier if clinically indicated confirm nsaid hx and if any sx of ileitis or crohns Above findings were reviewed with the patient and relevant handouts were provided if indicated.
--- NOTE | 2020-10-16 12:03 | PM.OP ---
Brief Operative Note Date of Service: 10/16/20 Pre-op diagnosis: hx of polyps, FH CRC in older brother Post-op diagnosis: same Procedure: see op note Surgeon: Nicki Parikh MD Anesthesia: MAC Was an [employer]ating [employer] used for this Procedure?: No Estimated blood loss (mL): 0 Condition: stable Disposition: PACU
[2020-10-16 12:49] VITALS: BP 107/67; PULSE 69; RESP 16; TEMP 36.1; O2SAT 96
[2020-10-16 12:59] VITALS: BP 119/76; PULSE 70; RESP 16; TEMP 36.1; O2SAT 96
== END 2020-10-16 13:25 | disposition home or self-care (01) ==
PROVIDERS: PCP Family Medicine; Visit Provider Internal Medicine Gastroenterology
PROC: 0DJD8ZZ Inspection of Lower Intestinal Tract, Via Natural or Artificial Opening Endoscopic (ICD-10-PCS; CPT 45378; principal; 2020-10-16 12:40)
DX: Z12.11 Encounter for screening for malignant neoplasm of colon (principal); K62.1 Rectal polyp; K64.0 First degree hemorrhoids; I73.9 Peripheral vascular disease, unspecified; I10 Essential (primary) hypertension; E11.42 Type 2 diabetes mellitus with diabetic polyneuropathy; Z79.84 Long term (current) use of oral hypoglycemic drugs; Z79.899 Other long term (current) drug therapy; Z88.8 Allergy status to other drugs, medicaments and biological substances; F17.210 Nicotine dependence, cigarettes, uncomplicated
CPT/HCPCS: 45385; 45380; 82947; 88305

== ENCOUNTER → 2020-11-07 13:07 | Outpatient (BNVA) | payer OTHER, SELFPAY | PROVIDERS: Visit Provider Nurse Practitioner Family ==

== ENCOUNTER 2020-11-28 08:52 | Outpatient (REF) | payer OTHER, SELFPAY ==
[2020-11-28 11:16] LABS: Alanine Aminotransferase 22 U/L (0-40); Albumin Level 4.5 g/dL (3.5-5.0); Alkaline Phosphatase 73 U/L (39-117); Aspartate Amino Transferase 25 U/L (5-37); Bilirubin Direct 0.4 mg/dL (0.0-0.5); Bilirubin Total 0.9 mg/dL (0.0-1.0); Total Protein 7.3 g/dL (6.5-8.0)
== END 2020-11-28 08:53 | disposition home or self-care (01) ==
LOC: HO.WFDLDS 08:52
PROVIDERS: Visit Provider Family Medicine
DX: R74.01 Elevation of levels of liver transaminase levels (principal)
CPT/HCPCS: 36415; 80076

== ENCOUNTER → 2020-12-22 12:46 | Outpatient (BNVA) | payer OTHER, SELFPAY | PROVIDERS: PCP Family Medicine; Visit Provider Nurse Practitioner Gerontology | DX: E11.649 Type 2 diabetes mellitus with hypoglycemia without coma (principal); E11.40 Type 2 diabetes mellitus with diabetic neuropathy, unspecified; E78.00 Pure hypercholesterolemia, unspecified; I10 Essential (primary) hypertension | CPT/HCPCS: 82947 ==

== ENCOUNTER → 2020-12-29 12:30 | Outpatient (BNVA) | payer OTHER, SELFPAY | PROVIDERS: PCP Family Medicine; Visit Provider Dietitian, Registered | DX: E11.9 Type 2 diabetes mellitus without complications (principal) | CPT/HCPCS: 97803 ==

== ENCOUNTER 2021-01-30 10:39 | Outpatient (REF) | payer OTHER, SELFPAY ==
[2021-01-30 14:46] LABS: Anion Gap 22 (12-20); Blood Urea Nitrogen 8 mg/dL (9-16); Calcium 8.8 mg/dL (8.4-10.2); Carbon Dioxide 28 mmol/L (22-29); Chloride 101 mmol/L (96-108); Estimated Glomerular Filt Rate > 60; Glucose Random 120 mg/dL (60-115); Sodium 147 mmol/L (135-145)
== END 2021-01-30 10:40 | disposition home or self-care (01) ==
LOC: HO.WFDLDS 10:39
PROVIDERS: PCP Family Medicine; Visit Provider Family Medicine
DX: Z00.00 Encounter for general adult medical examination without abnormal findings (principal); E11.40 Type 2 diabetes mellitus with diabetic neuropathy, unspecified
CPT/HCPCS: 36415; 80048

== ENCOUNTER → 2021-03-13 13:28 | Outpatient (BNVA) | payer OTHER, SELFPAY | PROVIDERS: PCP Family Medicine; Referring Provider Family Medicine; Visit Provider Nurse Practitioner Family ==

== ENCOUNTER → 2021-04-06 12:32 | Outpatient (BNVA) | payer OTHER, SELFPAY | PROVIDERS: PCP Family Medicine; Visit Provider Dietitian, Registered | DX: E11.9 Type 2 diabetes mellitus without complications (principal) | CPT/HCPCS: 97803 ==

== ENCOUNTER 2021-04-09 15:55 | Outpatient (REF) | payer OTHER, SELFPAY ==
[2021-04-09 16:23] LABS: Hematocrit 44.7 % (42.0-52.0); Hemoglobin 14.6 g/dl (14.0-18.0); Mean Corpuscular HGB Conc 32.7 g/dl (31.0-36.0); Mean Corpuscular Hemoglobin 33.6 pg (27.0-33.0); Mean Corpuscular Volume 102.8 fL (80.0-98.0); Mean Platelet Volume 10.5 fL (9.4-12.4); Platelet Count 212 X10*3/uL (160-400); Red Blood Count 4.35 X10*6/uL (4.60-5.80); Red Cell Distribution Width 13.7 % (11.0-16.0); White Blood Count 7.4 X10*3/uL (4.8-10.8)
== END 2021-04-09 15:56 | disposition home or self-care (01) ==
LOC: HO.LAB 15:55
PROVIDERS: PCP Family Medicine; Visit Provider Nurse Practitioner Family
DX: K62.5 Hemorrhage of anus and rectum (principal)
CPT/HCPCS: 36415; 85027

== ENCOUNTER → 2021-04-10 11:42 | Outpatient (BNVA) | payer OTHER, SELFPAY | PROVIDERS: PCP Family Medicine; Referring Provider Family Medicine; Visit Provider Nurse Practitioner Family ==

== ENCOUNTER → 2021-05-04 09:44 | Outpatient (BNVA) | payer OTHER, SELFPAY | PROVIDERS: PCP Family Medicine; Visit Provider Nurse Practitioner Gerontology ==

== ENCOUNTER 2021-05-26 11:25 | Inpatient (IN) | payer OTHER, SELFPAY ==
[2021-05-26] VITALS (8 sets, daily range): BP systolic 103–120; BP diastolic 55–71; PULSE 79–105; RESP 16–18; TEMP 36.8–36.9; O2SAT 92–100; BMI 26.4
--- NOTE | ~2021-05-26 | US_ITS ---
EXAMINATION: US ABDOMEN COMPLETE CLINICAL INFORMATION: Bright red blood per rectum. Abnormal LFTs. EtOH. COMPARISON: None TECHNIQUE: Real-time imaging of the abdominal viscera. FINDINGS: PANCREAS: Normal. ABDOMINAL AORTA: The proximal, mid, and distal segments are normal in caliber. INFERIOR VENA CAVA: Visualized portions are normal. LIVER: Normal. The liver is normal in size. The liver contour is normal. There is diffuse increased liver parenchymal echogenicity, consistent with hepatic steatosis. No focal hepatic lesion. There is no intrahepatic biliary duct dilatation seen. GALLBLADDER: Normal. The gallbladder is physiologically distended without evidence of stones, sludge, polyps, wall thickening or pericholecystic fluid. COMMON BILE DUCT: Normal in caliber measuring 0.2 cm in diameter. RIGHT KIDNEY: Normal. No hydronephrosis. No renal calculi or focal parenchymal lesions. The kidney measures 12.8 cm in maximum dimension. LEFT KIDNEY: Normal. No hydronephrosis. No renal calculi or focal parenchymal lesions. The kidney measures 12.5 cm in maximum dimension. SPLEEN: Normal. The spleen measures 8.3 cm in maximum dimension. FREE FLUID: None. US/US abdomen complete IMPRESSION: No acute findings. No biliary dilatation. Hepatic steatosis.
--- NOTE | 2021-05-26 11:51 | ED.GIBLEED ---
HPI - GI Bleed General Chief complaint: GI Bleed Stated complaint: LOW GI BLEED X'S 2 DAYS PER EMS Time Seen by Provider: 05/26/21 11:34 Source: patient and EMS Mode of arrival: EMS History of Present Illness HPI Narrative: 65-year-old male with a past medical history of anxiety, depression, diabetes, hemorrhoidal bleeding, HTN, PVD, presenting to the ED complaining of brbpr x2-3 days with associated rectal pain and nausea. Reports blood filling toilet and in underwear. Also reports dysuria. Denies lightheadedness/dizziness, CP/SOB, abdominal pain, hematuria, melena. Admits this episode different than prior hemorrhoidal bleeding in the past. Denies taking anticoagulation MD complaint: blood on toilet paper and gross hematochezia Related Data Home Medications Medication Instructions Recorded Confirmed atorvastatin 80 mg tablet 1 tab PO DAILY 06/07/20 05/04/21 lansoprazole 30 mg capsule,delayed 1 cap PO DAILY 06/07/20 10/10/20 release lisinopril 40 mg tablet 1 tab PO DAILY 06/07/20 05/04/21 magnesium oxide 400 mg (241.3 mg 400 mg PO DAILY 11/28/20 magnesium) tablet pyridoxine (vitamin B6) 50 mg 50 mg PO DAILY 11/28/20 tablet Previous Rx's Medication Instructions Recorded empagliflozin 12.5 mg-metformin ER 2 tab PO DAILY 30 Days #60 ea 08/18/20 1,000 mg tablet,extended rel 24 hr (Synjardy XR) escitalopram oxalate 20 mg tablet 20 mg PO DAILY 90 Days #90 tab 08/21/20 folic acid 1 mg tablet 1 mg PO DAILY 90 Days #90 tab 08/21/20 thiamine HCl (vitamin B1) 100 mg 100 mg PO DAILY 90 Days #90 tab 08/21/20 tablet alpha lipoic acid 600 mg capsule 600 mg PO DAILY 30 Days #30 cap 01/29/21 naltrexone 50 mg tablet 50 mg PO DAILY 90 Days #90 tab 02/27/21 hydrocortisone 2.5 % topical cream 1 appl MI BID-QID PRN #30 g 03/13/21 with perineal applicator (Proctosol HC) methylcellulose (laxative) 500 mg 500 mg PO DAILY #90 tab 04/10/21 tablet (Citrucel) sennosides 8.6 mg tablet (Natural 8.6 mg PO BEDTIME #90 tab 04/10/21 Senna Laxative) gabapentin 300 mg capsule 300 mg PO TID 90 Days #270 cap 05/01/21 docusate sodium 100 mg capsule 100 mg PO BID #60 cap 05/23/21 Allergies Allergy/AdvReac Type Severity Reaction Status Date / Time niacin [NIACIN] AdvReac Mild RED FLUSH, Verified 05/04/21 15:02 SHAKING Review of Systems Review of Systems: Constitutional: No Fever, No Chills, No Fatigue, No Malaise ENT/Mouth: No Ear Pain, No sore throat, No Rhinorrhea, No Swallowing Difficulty Eyes: No Eye Pain, No Redness, No Discharge Cardiovascular: No Chest Pain, No SOB, No Edema, No Palpitations Respiratory: No Cough, No Dyspnea Gastrointestinal: + Nausea, No Vomiting, No Diarrhea, No Constipation, No Abdominal pain, + Hematochezia, No Melena Genitourinary: + Dysuria, No Urinary Frequency, No Hematuria, No Urinary Incontinence, No Flank Pain, No Urinary Flow Changes Musculoskeletal: No joint pain, No Myalgias, No Joint Swelling Skin: No Skin Lesions, No rash Neuro: No Weakness, No Loss of Consciousness, No Dizziness, No Headache Yes all other systems are reviewed and are negative PMFSH Past Medical History Attestation statement: The following information was validated with the patient. Medical History Alcohol abuse Anxiety Depression Diabetes Diabetes type 2, controlled Diabetes type 2, uncontrolled Diabetic polyneuropathy associated with type 2 diabetes mellitus Hemorrhoids without complication Hypertension Neuropathy PVD (peripheral vascular disease) Surgical History H/O colonoscopy Family History Family History Mother No problems noted. Father No problems noted. Social History Social History Household Members: Family Housing: House Do you presently have visiting nurse or other home services: No Alcohol intake: current Alcohol intake frequency: 0-2 drinks per day Patient Tobacco Use Status: Current everyday Tobacco user Tobacco use type: Cigarette Cigarettes Per Day: 3 e-Cigarette/Vaping Use: Never Used Second Hand Smoke Exposure: No Advance Directives: No Advance Directives Information Provided: No service: No Current occupational status: retired Cognitive needs: No Hearing needs: No Vision needs: No Physical Exam Vital Signs: Vital Signs: Last Vital Signs Pulse 105 H 05/26/21 12:10 BP 106/69 05/26/21 12:10 BMI result Body Mass Index 26.4 Const: General: cooperative, healthy appearing and no acute distress Orientation/consciousness: patient oriented x3 Limitations: no limitations HENMT: Head: Yes normal to inspection and Yes atraumatic Ears: hearing grossly normal bilaterally General nose exam: Normal external nose present Face and sinus: Yes normal facial exam Eyes: General: appearance normal, both eyes and all related structures EOM: EOMs intact bilaterally Neck: Neck: Yes normal visual inspection and Yes no meningeal signs Resp: Effort & Inspection: normal respiratory effort and no respiratory distress Auscultation: clear to auscultation bilaterally, no crackles and no wheezes Cardio: Rate: regular rate Heart sounds: S1 normal heart sound present and S2 normal heart sound present GI: Inspection: Yes normal to inspection Palpation (GI): Soft to palpation, nontender, no guarding and not rigid Rectal Exam - Male: Yes heme positive stool, Yes External hemorrhoid(s) present (At 03:00 o'clock. No thrombosis, mildly ttp) and Yes Internal hemorrhoid(s) present : General: Yes no CVA tenderness Back/Spine/Pelvis: Back: no CVA tenderness Skin: Rashes: no rashes Wounds: no wounds Neuro: General: patient oriented x3, tone normal, moves all extremities and no meningeal signs Gait exam (Neuro): Normal gait present Extrem: General: Yes normal to inspection Course Course Course Narrative: -1242--occult stool positive, no leukocytosis. H/H lower than baseline at 12.6/36.5 > will obtain 4hr repeat. Platelets low at 135. BUN elevated to 21 (significant change from priors) -bilirubins elevated, acute transaminitis likely from ETOH -Dr. Loyola GI consulted -Dr. Loyola recommended ETOH level, hepatitis serologies an abdominal ultrasound as well as likely admission if orthostatic -1305--magnesium critically low at 0.9 >2g IV repletion ordered. Potassium 3.2 > p.o. repletion ordered. Noted anion gap 29 likely from ETOH -orthostatic vital signs negative US abdomen complete IMPRESSION: No acute findings. No biliary dilatation. Hepatic steatosis. > plan to admit for further management MDM - GI Bleed MDM Narrative Medical decision making narrative: 65-year-old male with a past medical history of anxiety, depression, diabetes, hemorrhoidal bleeding, HTN, PVD, presenting to the ED complaining of brbpr x2-3 days with associated rectal pain and nausea. On exam vital signs stable, NAD/nontoxic, abdomen soft/nontender, rectal exam with bright red blood with appreciable external and internal hemorrhoids without thrombosis. Concern for hemorrhoidal bleeding vs GI bleed. Rule out anemia and UTI. Plan: Labs, UA, orthostatics, occult stool, re-evaluate Medical Records Attestation: I reviewed the patient's medical records. Lab Data Attestation: I reviewed the patient's lab results. Result diagrams: 05/26/21 11:56 05/26/21 11:56 Labs: Lab Results 05/26/21 05/26/21 05/26/21 Range/Units 11:56 11:56 11:56 WBC 5.2 (4.8-10.8) X10*3/uL RBC 3.71 L (4.60-5.80) X10*6/uL Hgb 12.6 L (14.0-18.0) g/dl Hct 36.5 L (42.0-52.0) % MCV 98.4 H (80.0-98.0) fL MCH 34.0 H (27.0-33.0) pg MCHC 34.5 (31.0-36.0) g/dl RDW 13.7 (11.0-16.0) % Plt Count 135 L D (160-400) X10*3/uL MPV 10.3 (9.4-12.4) fL Immature Gran % (Auto) 0.8 H (0.0-0.4) % Neut % (Auto) 67.1 (45-73) % Lymph % (Auto) 18.2 L (20-40) % [place] % (Auto) 12.0 H (2-11) % Eos % (Auto) 1.1 (0-4) % Baso % (Auto) 0.8 (0-2) % Lymph # (Auto) 1.0 L (1.2-4.9) X10*3/uL [place] # (Auto) 0.6 (0.1-1.2) X10*3/uL Eos # (Auto) 0.1 (0.0-0.4) X10*3/uL Baso # (Auto) 0.0 (0.0-0.2) X10*3/uL Abs Immat Gran (auto) 0.04 H (0.00-0.03) X10*3/uL Absolute Neuts (auto) 3.5 (2.0-8.3) x10*3/uL Absolute Nucleated RBC 0.000 (0.0-0.012) X10*3/uL Nucleated RBC % (auto) 0.0 (0.0-0.2) /100WBC PT 12.1 (9.9-13.0) SEC INR 1.1 (0.9-1.1) Sodium 144 (135-145) mmol/L Potassium 3.2 L (3.3-5.1) mmol/L Chloride 95 L (96-108) mmol/L Carbon Dioxide 23 (22-29) mmol/L Anion Gap 29 H (12-20) BUN 21 H (9-16) mg/dL Creatinine 1.30 (0.5-1.4) mg/dL Estim Creat Clear Calc 61.9 Estimated GFR 56 Random Glucose 150 H (60-115) mg/dL Calcium 8.2 L D (8.4-10.2) mg/dL Magnesium 0.9 L* (1.6-2.6) mg/dL Total Bilirubin 1.3 H (0.0-1.0) mg/dL Direct Bilirubin 0.9 H (0.0-0.5) mg/dL AST 149 H (5-37) U/L ALT 88 H (0-40) U/L Alkaline Phosphatase 174 H D (39-117) U/L Total Protein 6.2 L (6.5-8.0) g/dL Albumin 3.7 (3.5-5.0) g/dL Lipase 46 (8-78) U/L Urine Color Urine Appearance Urine pH (5.0-8.0) Ur Specific Doyle (1.005-1.025) Urine Protein (NEG-TRACE) MG/DL Urine Glucose (UA) (NEG) MG/DL Urine Ketones (NEG) MG/DL Urine Blood (NEG) Urine Nitrite (NEG) Ur Leukocyte Esterase (NEG) Urine RBC (0) /HPF Urine WBC (0-4) /HPF Ur Squamous Epith Cells /LPF Amorphous Sediment /LPF Urine Bacteria /LPF Hyaline Casts /LPF Granular Casts /LPF Urine Mucus /LPF Stool Occult Blood (NEGATIVE) COVID-19 (AGUSTINA) (Negative) COVID-19 Clin Com 05/26/21 05/26/21 05/26/21 Range/Units 11:56 11:56 12:50 WBC (4.8-10.8) X10*3/uL RBC (4.60-5.80) X10*6/uL Hgb (14.0-18.0) g/dl Hct (42.0-52.0) % MCV (80.0-98.0) fL MCH (27.0-33.0) pg MCHC (31.0-36.0) g/dl RDW (11.0-16.0) % Plt Count (160-400) X10*3/uL MPV (9.4-12.4) fL Immature Gran % (Auto) (0.0-0.4) % Neut % (Auto) (45-73) % Lymph % (Auto) (20-40) % [place] % (Auto) (2-11) % Eos % (Auto) (0-4) % Baso % (Auto) (0-2) % Lymph # (Auto) (1.2-4.9) X10*3/uL [place] # (Auto) (0.1-1.2) X10*3/uL Eos # (Auto) (0.0-0.4) X10*3/uL Baso # (Auto) (0.0-0.2) X10*3/uL Abs Immat Gran (auto) (0.00-0.03) X10*3/uL Absolute Neuts (auto) (2.0-8.3) x10*3/uL Absolute Nucleated RBC (0.0-0.012) X10*3/uL Nucleated RBC % (auto) (0.0-0.2) /100WBC PT (9.9-13.0) SEC INR (0.9-1.1) Sodium (135-145) mmol/L Potassium (3.3-5.1) mmol/L Chloride (96-108) mmol/L Carbon Dioxide (22-29) mmol/L Anion Gap (12-20) BUN (9-16) mg/dL Creatinine (0.5-1.4) mg/dL Estim Creat Clear Calc Estimated GFR Random Glucose (60-115) mg/dL Calcium (8.4-10.2) mg/dL Magnesium (1.6-2.6) mg/dL Total Bilirubin (0.0-1.0) mg/dL Direct Bilirubin (0.0-0.5) mg/dL AST (5-37) U/L ALT (0-40) U/L Alkaline Phosphatase (39-117) U/L Total Protein (6.5-8.0) g/dL Albumin (3.5-5.0) g/dL Lipase (8-78) U/L Urine Color YELLOW Urine Appearance CLEAR Urine pH 5.5 (5.0-8.0) Ur Specific Doyle 1.025 (1.005-1.025) Urine Protein 1+ H (NEG-TRACE) MG/DL Urine Glucose (UA) >=1000 H (NEG) MG/DL Urine Ketones 15 (NEG) MG/DL Urine Blood TRACE (NEG) Urine Nitrite NEG (NEG) Ur Leukocyte Esterase NEG (NEG) Urine RBC 0-2 (0) /HPF Urine WBC 0-2 (0-4) /HPF Ur Squamous Epith Cells TRACE /LPF Amorphous Sediment TRACE /LPF Urine Bacteria NONE /LPF Hyaline Casts 0-2 /LPF Granular Casts 1-4 /LPF Urine Mucus TRACE /LPF Stool Occult Blood POSITIVE (NEGATIVE) COVID-19 ([facility]USTINA) Negative (Negative) COVID-19 Clin Com See Note Discharge Plan Discharge Clinical Impression: BRBPR (bright red blood per rectum), Hypomagnesemia, Transaminitis Patient Disposition: Admitted As Inpatient
[2021-05-26] MEDS: ondansetron HCL 4 MG/2 ML VIAL IVPUSH (11:53)
[2021-05-26 12:00] LABS: MANUAL DIFF FLAG NO
[2021-05-26 12:04] LABS: Basophils Percent Auto 0.8 % (0-2); Eosinophils Absolute Auto 0.1 X10*3/uL (0.0-0.4); Eosinophils Percent Auto 1.1 % (0-4); Hematocrit 36.5 % (42.0-52.0); Hemoglobin 12.6 g/dl (14.0-18.0); Imm Gran Abs Auto 0.04 X10*3/uL (0.00-0.03); Imm Gran Pct Auto 0.8 % (0.0-0.4); Lymphocytes Percent Auto 18.2 % (20-40); Mean Corpuscular HGB Conc 34.5 g/dl (31.0-36.0); Mean Corpuscular Volume 98.4 fL (80.0-98.0); Mean Platelet Volume 10.3 fL (9.4-12.4); Monocytes Absolute Auto 0.6 X10*3/uL (0.1-1.2); Neutrophils Absolute Auto 3.5 x10*3/uL (2.0-8.3); Neutrophils Percent Auto 67.1 % (45-73); Platelet Count 135 X10*3/uL (160-400); Red Blood Count 3.71 X10*6/uL (4.60-5.80); Red Cell Distribution Width 13.7 % (11.0-16.0); White Blood Count 5.2 X10*3/uL (4.8-10.8)
--- NOTE | 2021-05-26 12:04 | PC.NURSE ---
pt alert and oriented, vss, reports 2/10 chronic arthritic pain. pt rectal pain and bleeding that he relates to hemorrhoids. he also reports bright red blood with bowel movements that has been going on for the last 3 days. pt states he has a history of the same in the past. he states that he has an appointment to see Dr. San on this coming Friday. he denies weakness/headache/dizziness/sob/abdominal pain/tenderness. will continue to monitor
[2021-05-26 12:05] LABS: OBS Int Ctl Valid YES; OBS1 POSITIVE (NEGATIVE)
[2021-05-26 12:12] LABS: INTERNATIONAL NORM RATIO 1.1 (0.9-1.1); Prothrombin Time 12.1 SEC (9.9-13.0)
[2021-05-26 12:25] LABS: COVID-19 Test Negative (Negative); IDNOW Serial# 16C4AD1C
[2021-05-26 12:35] LABS: Alanine Aminotransferase 88 U/L (0-40); Albumin Level 3.7 g/dL (3.5-5.0); Alkaline Phosphatase 174 U/L (39-117); Aspartate Amino Transferase 149 U/L (5-37); Bilirubin Direct 0.9 mg/dL (0.0-0.5); Bilirubin Total 1.3 mg/dL (0.0-1.0); Blood Urea Nitrogen 21 mg/dL (9-16); Calcium 8.2 mg/dL (8.4-10.2); Creatinine Clr Calc Pharmacy 61.9; Estimated Glomerular Filt Rate 56; Glucose Random 150 mg/dL (60-115); Lipase 46 U/L (8-78); Total Protein 6.2 g/dL (6.5-8.0)
[2021-05-26] MEDS: 0.9 % Sodium Chloride 1,000 ML 999 ML IV (12:45)
[2021-05-26 12:58] LABS: Anion Gap 29 (12-20); Carbon Dioxide 23 mmol/L (22-29); Chloride 95 mmol/L (96-108); Magnesium 0.9 mg/dL (1.6-2.6); Potassium 3.2 mmol/L (3.3-5.1); Sodium 144 mmol/L (135-145)
[2021-05-26 13:05] LABS: Appearance Urine CLEAR; Color Urine YELLOW; Glucose Urine UA >=1000 MG/DL (NEG); Leukocyte Esterase Urine NEG (NEG); Nitrite Urine NEG (NEG); PH 5.5 (5.0-8.0); Specific Gravity - Urine 1.025 (1.005-1.025); UACC Culture Trigger NO; Urine Blood TRACE (NEG); Urine Ketones 15 MG/DL (NEG); Urine Protein 1+ MG/DL (NEG-TRACE)
[2021-05-26 13:29] LABS: Amorphous Sediment Urine TRACE /LPF; Hyaline Casts Urine 0-2 /LPF; Mucus Urine TRACE /LPF; RBC Urine 0-2 /HPF (0); Squamous Epithelial Cell Urine TRACE /LPF; WBC Urine 0-2 /HPF (0-4)
--- NOTE | 2021-05-26 13:38 | P.CNGI_ITS ---
History of Present Illness Data of Consult Service Date: 05/26/21 Requesting physician: Cookie Cuellar Primary Care Provider: Balbir Schmid MD HPI Reason for consult: Hematochezia 65 YM called GI this morning with complaint of rectal bleeding for the past few days and advised to come to [facility] [place] ED: 65-year-old male with anxiety, depression, diabetes, hemorrhoidal bleeding, HTN, PVD, presenting to the ED complaining of brbpr x2-3 days with associated rectal pain and nausea.? Reports blood filling toilet and in underwear.? Also reports dysuria.? Denies lightheadedness/dizziness, CP/SOB, abdominal pain, hematuria, melena.? Admits this episode different than prior hemorrhoidal bleeding in the past.? Denies taking anticoagulation Pt has a hx of intermittent rectal bleeding from hemorrhoids in the past. He reports heavy bleeding in the toilet bowl and on the toilet paper for the past 3-4 days. Blood is bright red with a few clots and blood can come out in a squirt . He notes bleeding 3-4 times a day - every time he has a BM and fills up the toilet bowl. He noted some rectal pain. [place]rie complains of fatigue, nausea with dry heaves and some dizziness on standing. Pt denies past hx of PUD or GI Bleeding other than bleeding from hemorrhoids ENDOSCOPIC STUDIES: 09/2020 Colonoscopy was performed by Dr Parikh and a hyperplastic polyp was removed from the rectum and small hemorrhoids were noted. Review of Systems Review of Systems: Constitutional: No Fever, No Chills, No Fatigue, No Malaise ENT/Mouth: No Ear Pain, No sore throat, No Rhinorrhea, No Swallowing Difficulty Eyes: No Eye Pain, No Redness, No Discharge Cardiovascular: No Chest Pain, No SOB, No Edema, No Palpitations Respiratory: No Cough, No Dyspnea Gastrointestinal: + Nausea, No Vomiting, No Diarrhea, No Constipation, No Abdominal pain, + Hematochezia, No Melena Genitourinary: + Dysuria, No Urinary Frequency, No Hematuria, No Urinary Incontinence, No Flank Pain, No Urinary Flow Changes Musculoskeletal: No joint pain, No Myalgias, No Joint Swelling Skin: No Skin Lesions, No rash Neuro: No Weakness, No Loss of Consciousness, No Dizziness, No Headache Yes all other systems are reviewed and are negative PMFSH Past Medical History Medical History Alcohol abuse Anxiety Depression Diabetes Diabetes type 2, controlled Diabetes type 2, uncontrolled Diabetic polyneuropathy associated with type 2 diabetes mellitus Hemorrhoids without complication Hypertension Neuropathy PVD (peripheral vascular disease) Family History Family History Mother No problems noted. Father No problems noted. Surgical History Surgical History H/O colonoscopy Social History Social History (Updated 05/26/21 @ 16:20 by CRISTINA Beckman) Household Members: Family Housing: House Do you presently have visiting nurse or other home services: No Alcohol intake: current Alcohol intake frequency: 0-2 drinks per day Patient Tobacco Use Status: Current everyday Tobacco user Tobacco use type: Cigarette Cigarettes Per Day: 4 e-Cigarette/Vaping Use: Never Used Second Hand Smoke Exposure: No service: No Current occupational status: retired Cognitive needs: No Hearing needs: No Vision needs: No Meds Allergies Allergy/AdvReac Type Severity Reaction Status Date / Time niacin [NIACIN] AdvReac Mild RED FLUSH, Verified 05/04/21 15:02 SHAKING Active Medications: Current Medications Magnesium Sulfate (Magnesium Sulfate/H2o) 2 gm in 50 mls @ 25 mls/hr IV ONCE ONE Stop: 05/26/21 14:57 Pharmacy Consult (Consult Rx Perform Med Rec) 1 each MISCELLANE ONCE PRN PRN Reason: Consult order Home Medications Medication Instructions Recorded Confirmed Last Taken Type atorvastatin 80 mg tablet 1 tab PO DAILY 06/07/20 05/26/21 06/07/20 History lansoprazole 30 mg capsule,delayed 1 cap PO DAILY 06/07/20 05/26/21 06/07/20 History release lisinopril 40 mg tablet 1 tab PO DAILY 06/07/20 05/26/21 06/07/20 History magnesium oxide 400 mg (241.3 mg 400 mg PO DAILY 11/28/20 05/26/21 Unknown History magnesium) tablet pyridoxine (vitamin B6) 50 mg 50 mg PO DAILY 11/28/20 05/26/21 Unknown History tablet Physical Exam Vital Signs: Vital Signs: Last Vital Signs Pulse 105 H 05/26/21 12:10 BP 106/69 05/26/21 12:10 BMI result Body Mass Index 26.4 Const: General: healthy appearing and no acute distress Nutritional Appearance: overweight Orientation/consciousness: patient oriented x3 Limitations: no limitations HENMT: Head: Yes normal to inspection Ears: hearing grossly normal bilaterally Mouth: Normal oral and palatal mucosa present Eyes: Sclerae: sclerae normal Pupils: Equal, round and reactive pupils present Neck: Neck: Yes normal visual inspection Chest: Chest palpation & inspection: normal inspection of the chest Resp: Effort & Inspection: normal respiratory effort Auscultation: clear to auscultation bilaterally Cardio: Palpation: normal PMI Rate: regular rate Rhythm: regular rhythm Heart sounds: S1 normal heart sound present, S2 normal heart sound present and no murmurs GI: Palpation (GI): Soft to palpation, nontender and No hepatosplenomegaly present Auscultation: normal bowel sounds Rectal Exam - Male: Yes deferred Skin: General skin exam: no rashes or lesions noted Neuro: General: patient oriented x3, gait normal and moves all extremities Cranial nerves: Yes Equal, round and reactive pupils present Psych: Appearance: grossly normal Mental Status: mental status grossly normal Results Labs CBC & Chem 7: 05/28/21 05:11 05/28/21 05:11 Labs: Short CBC 05/26/21 Range/Units 11:56 WBC 5.2 (4.8-10.8) X10*3/uL Hgb 12.6 L (14.0-18.0) g/dl Hct 36.5 L (42.0-52.0) % Plt Count 135 L D (160-400) X10*3/uL BMP 05/26/21 11:56 Sodium 144 Potassium 3.2 L Chloride 95 L Carbon Dioxide 23 BUN 21 H Creatinine 1.30 Calcium 8.2 L D Liver Function 05/26/21 Range/Units 11:56 Total Bilirubin 1.3 H (0.0-1.0) mg/dL Direct Bilirubin 0.9 H (0.0-0.5) mg/dL AST 149 H (5-37) U/L ALT 88 H (0-40) U/L Alkaline Phosphatase 174 H D (39-117) U/L Albumin 3.7 (3.5-5.0) g/dL Urine 05/26/21 Range/Units 12:50 Urine Color YELLOW Urine Appearance CLEAR Urine pH 5.5 (5.0-8.0) Ur Specific [place] 1.025 (1.005-1.025) Urine Protein 1+ H (NEG-TRACE) MG/DL Urine Glucose (UA) >=1000 H (NEG) MG/DL Assessment and Plan (1) BRBPR (bright red blood per rectum): Status: Acute (2) Transaminitis: Status: Acute 65-year-old male with anxiety, depression, diabetes, hemorrhoidal bleeding, HTN, PVD, presenting to the ED complaining of BRBPR x 4 days with associated rectal pain and nausea. Hematochezia likey from hemorrhoids, diverticular bleeding or UGI source Pt noted to have lower than baseline BP and tachycardia. Labs showed H &H of 12.6 & 36.5 (decreased from 14.6 & 44.7 on 04/09/21), elevated BUN and LFTs. AST >ALT suggestive of ETOH hepatitis Stool occult blood was positive Abd US showed fatty liver Plan 1. Repeat CBC in 4 hrs and monitor prn. 2. Check Hepatitis A, B and C serologies 3. If pt has continued bleeding with a decrease in H & H, obtain CT angiogram to localize bleeding site. I will follow. ADDENDUM: Patient scheduled for an EGD for evaluation of nausea and colonoscopy due to c ontinued rectal bleeding with a decrease in H & H. Procedures Date of Service Date of Service: 05/26/21
[2021-05-26] MEDS: Potassium Chloride Packet 20 MEQ PACKET 40 MEQ PO (14:16)
[2021-05-26] MEDS: Magnesium Sulfate/H2O 2 GM/50 ML PIGGYBACK IV ×2 (14:17→17:12)
--- NOTE | 2021-05-26 14:44 | PHA.MEDREC ---
Pharmacy Consult ? Medication Reconciliation Pharmacy has completed the medication reconciliation.
--- NOTE | 2021-05-26 16:02 | ECG_ITS ---
Test Reason : GI BLEED Blood Pressure : / mmHG Vent. Rate : 083 BPM Atrial Rate : 083 BPM P-R Int : 150 ms QRS Dur : 090 ms QT Int : 392 ms P-R-T Axes : 022 032 034 degrees QTc Int : 460 ms Normal sinus rhythm Normal ECG When compared with ECG of 07-JUN-2020 19:13, QT has shortened Referred By: Cookie Cuellar Electronically Signed By:HECTOR ACEVES
--- NOTE | 2021-05-26 16:08 | P.HPHOSP_ITS ---
History of Present Illness Date of Service: 05/26/21 <CRISTINA Beckman - Last Filed: 05/26/21 16:34> Attending physician on admission: Kenneth Hillman <CRISTINA Beckman - Last Filed: 05/26/21 16:34> Chief Complaint: Rectal bleeding <CRISTINA Beckman - Last Filed: 05/26/21 16:34> This is a 65 male who presents to the emergency department today with complaints of rectal bleeding. For the past 2 days he has had 3-4 episodes of bright red blood per rectum. Initially the blood was mixed with stool but now it is just blood. He reports the blood was squirting out and filling the toilet bowl. He denies any associated abdominal pain but does report feeling bloated. He does have some nausea, no vomiting. He has diagnosis history of hemorrhoids and has had intermittent rectal bleeding in the past but has never been this severe and typically only lasts 1 day. Stool occult blood was positive. Blood pressure was noted to be on the lower side and he was mildly tachycardic. Lab work in the emergency department revealed hypokalemia with potassium of 3.2, hypomagnesemia with magnesium level of 0.9. LFTs were somewhat elevated. Ultrasound of the abdomen revealed hepatic steatosis and no other acute abnormalities. He was seen by Gastroenterology while in the emergency department who recommended repeating CBC after 4 hours. If the patient continues to have bleeding with associated drop in his H and H, obtaining a CT angiogram to localize the bleeding site was recommended. The patient reports drinking 3 beers and 1-2 mixed drinks daily he does have history of alcohol withdrawal but denies any alcohol withdrawal seizures in the past. His last drink was approximately 21:00 last night. He does not currently endorse experiencing any withdrawal symptoms. <CRISTINA Beckman - Last Filed: 05/26/21 16:34> Review of Systems Review of Systems: Yes all other systems are reviewed and are negative <CRISTINA Beckman - Last Filed: 05/26/21 16:34> Constitutional: Constitutional: Denies chills and Denies fever(s) <CRISTINA Beckman - Last Filed: 05/26/21 16:34> Cardiovascular: Cardiovascular: Denies chest pain and Denies palpitations <CRISTINA Beckman - Last Filed: 05/26/21 16:34> Respiratory: Respiratory: Denies cough <CRISTINA Beckman - Last Filed: 05/26/21 16:34> Gastrointestinal: Gastrointestinal: Reports hematochezia, Reports nausea and Denies vomiting <CRISTINA Beckman - Last Filed: 05/26/21 16:34> Endocrine: Endocrine: Denies palpitations <CRISTINA Beckman - Last Filed: 05/26/21 16:34> [facility] Medical History: Medical History Alcohol abuse Anxiety Depression Diabetes Diabetes type 2, controlled Diabetes type 2, uncontrolled Diabetic polyneuropathy associated with type 2 diabetes mellitus Hemorrhoids without complication Hypertension Neuropathy PVD (peripheral vascular disease) <CRISTINA Beckman - Last Filed: 05/26/21 16:34> Functional capacity: independent ambulation <CRISTINA Beckman - Last Filed: 05/26/21 16:34> Family History: Family History Mother No problems noted. Father No problems noted. <CRISTINA Beckman - Last Filed: 05/26/21 16:34> Pertinent family history: denies family history of heart disease <CRISTINA Beckman - Last Filed: 05/26/21 16:34> Surgical History: Surgical History H/O colonoscopy <CRISTINA Beckman - Last Filed: 05/26/21 16:34> Social History: Social History (Updated 05/26/21 @ 16:20 by CRISTINA Beckman) Household Members: Family Housing: House Do you presently have visiting nurse or other home services: No Alcohol intake: current Alcohol intake frequency: 3 or more drinks per day Patient Tobacco Use Status: Current everyday Tobacco user Tobacco use type: Cigarette Cigarettes Per Day: 3 e-Cigarette/Vaping Use: Never Used Second Hand Smoke Exposure: No Use of substances other than those prescribed or required for medical reasons: No Advance Directives: No Advance Directives Information Provided: No service: No Current occupational status: retired Cognitive needs: No Hearing needs: No Vision needs: No <CRISTINA Beckman - Last Filed: 05/26/21 16:34> Meds Allergies/Adverse reactions: Allergies Allergy/AdvReac Type Severity Reaction Status Date / Time niacin [NIACIN] AdvReac Mild RED FLUSH, Verified 05/04/21 15:02 SHAKING <CRISTINA Beckman - Last Filed: 05/26/21 16:34> Active Medications: Current Medications Acetaminophen (Acetaminophen 325 Mg Tablet) 650 mg PO Q6H PRN PRN Reason: Pain, Mild (Pain Scale 1-3) Dextrose (Dextrose 50 % 25 Gm/50 Ml Syringe) 25 gm IVPUSH Q15M PRN; Protocol PRN Reason: per Hypoglycemia Standing Ord. Escitalopram Oxalate (Escitalopram Oxalate 20 Mg Tablet) 20 mg PO DAILY [facility] Folic Acid (Folic Acid 1 Mg Tablet) 1 mg PO DAILY [facility] Gabapentin (Gabapentin 300 Mg Capsule) 300 mg PO TID [facility] Glucose (Glucose Gel 15 Gm Gel..Gram.) 15 gm PO Q15M PRN; Protocol PRN Reason: per Hypoglycemia Standing Ord. Hydrocortisone (Hydrocortisone 2.5 % Rectal Cr 30 Gm Tube) 1 appl [place] BID-QID PRN PRN Reason: hemorrhoids Lactated Ringer's (Lr) 1,000 mls @ 100 mls/hr IVCONT .Q10H [facility] Insulin Human Lispro (Insulin Lispro 100 Unit/Ml 3 Ml Vial) 0 unit SUBCUT QIDACHS [facility]; Protocol Magnesium Oxide (Magnesium Oxide 400 Mg Tablet) 400 mg PO DAILY [facility] Medication (No Benzodiazepines) 1 each MISCELLANE DAILY [facility] Nicotine Polacrilex (Nicotine Polacrilex 2 Mg Gum) 2 mg BUCCAL Q2H PRN PRN Reason: Nicotine Cravings Non-Formulary Medication (Lansoprazole) 1 cap PO DAILY [facility] Pharmacy Consult (Consult Rx Perform Med Rec) 1 each MISCELLANE ONCE PRN PRN Reason: Consult order Phenobarbital (Phenobarbital 30 Mg Tablet) 60 mg PO BID [facility] Stop: 05/28/21 21:01 Phenobarbital (Phenobarbital 30 Mg Tablet) 30 mg PO BID [facility] Stop: 05/30/21 21:01 Phenobarbital (Phenobarbital 15 Mg Tablet) 15 mg PO DAILY [facility] Stop: 06/01/21 09:01 Phenobarbital Sodium (Phenobarbital Sodium 130 Mg/Ml Vial) 181 mg IM [id number] [facility] Stop: 05/26/21 23:01 Pyridoxine HCl (Pyridoxine Hcl (Vitamin B6) 50 Mg Tablet) 50 mg PO DAILY [facility] Senna (Sennosides 8.6 Mg Tablet) 8.6 mg PO BEDTIME [facility] Sodium Chloride (0.9 % Sodium Chloride Flush 3 Ml Syringe) 3 ml IVFLUSH QSHIFT [facility] Thiamine HCl (Thiamine Hcl 100 Mg Tablet) 100 mg PO DAILY [facility] <CRISTINA Beckman Last Filed: 05/26/21 16:34> Home medications: Home Medications Medication Instructions Recorded Confirmed Last Taken Type atorvastatin 80 mg tablet 1 tab PO DAILY 06/07/20 05/26/21 06/07/20 History lansoprazole 30 mg capsule,delayed 1 cap PO DAILY 06/07/20 05/26/21 06/07/20 History release lisinopril 40 mg tablet 1 tab PO DAILY 06/07/20 05/26/21 06/07/20 History magnesium oxide 400 mg (241.3 mg 400 mg PO DAILY 11/28/20 05/26/21 Unknown History magnesium) tablet pyridoxine (vitamin B6) 50 mg 50 mg PO DAILY 11/28/20 05/26/21 Unknown History tablet <CRISTINA Beckman - Last Filed: 05/26/21 16:34> Physical Exam Vital Signs and Narrative: Vital Signs: Last Vital Signs Temp 98.2 F 05/26/21 15:47 Pulse 87 05/26/21 15:47 Resp 16 05/26/21 15:47 BP 103/71 05/26/21 15:47 Pulse Ox 92 05/26/21 15:47 BMI result Body Mass Index 26.4 <CRISTINA Beckman Last Filed: 05/26/21 16:34> Const: General: cooperative, comfortable, no acute distress, alert and awake <CRISTINA Beckman Last Filed: 05/26/21 16:34> Nutritional Appearance: average body habitus <CRISTINA Beckman Last Filed: 05/26/21 16:34> Orientation/consciousness: patient oriented x3 <CRISTINA Beckman Last Filed: 05/26/21 16:34> Resp: Effort & Inspection: normal respiratory effort and able to speak in complete sentences <CRISTINA Beckman - Last Filed: 05/26/21 16:34> Auscultation: clear to auscultation bilaterally <CRISTINA Beckman - Last Filed: 05/26/21 16:34> Cardio: Rate: regular rate <CRISTINA Beckman - Last Filed: 05/26/21 16:34> Heart sounds: S1 normal heart sound present and S2 normal heart sound present <CRISTINA Beckman - Last Filed: 05/26/21 16:34> GI: Inspection: No distended <CRISTINA Beckman - Last Filed: 05/26/21 16:34> Palpation (GI): Soft to palpation and nontender <CRISTINA Beckman - Last Filed: 05/26/21 16:34> Neuro: General: patient oriented x3 <CRISTINA Beckman - Last Filed: 05/26/21 16:34> Extrem: Other: no leg edema <CRISTINA Beckman - Last Filed: 05/26/21 16:34> Results Labs CBC and Chem 7: : 05/26/21 16:24 05/26/21 11:56 <CRISTINA Beckman - Last Filed: 05/26/21 16:34> Labs: Laboratory Results - last 24 hr 05/26/21 05/26/21 05/26/21 11:56 11:56 11:56 MCV 98.4 H MCH 34.0 H MCHC 34.5 RDW 13.7 Plt Count 135 L D MPV 10.3 Immature Gran % (Auto) 0.8 H Neut % (Auto) 67.1 Lymph % (Auto) 18.2 L [place] % (Auto) 12.0 H Eos % (Auto) 1.1 Baso % (Auto) 0.8 Lymph # (Auto) 1.0 L [place] # (Auto) 0.6 Eos # (Auto) 0.1 Baso # (Auto) 0.0 Abs Immat Gran (auto) 0.04 H Absolute Neuts (auto) 3.5 Absolute Nucleated RBC 0.000 Nucleated RBC % (auto) 0.0 PT 12.1 INR 1.1 Anion Gap 29 H Estim Creat Clear Calc 61.9 Estimated GFR 56 Random Glucose 150 H Calcium 8.2 L D Magnesium 0.9 L* Total Bilirubin 1.3 H Direct Bilirubin 0.9 H AST 149 H ALT 88 H Alkaline Phosphatase 174 H D Total Protein 6.2 L Albumin 3.7 Lipase 46 Urine Color Urine Appearance Urine pH Ur Specific [place] Urine Protein Urine Glucose (UA) Urine Ketones Urine Blood Urine Nitrite Ur Leukocyte Esterase Urine RBC Urine WBC Ur Squamous Epith Cells Amorphous Sediment Urine Bacteria Hyaline Casts Granular Casts Urine Mucus Stool Occult Blood COVID-19 (AGUSTINA) COVID-19 [employer] Com 05/26/21 05/26/21 05/26/21 11:56 11:56 12:50 MCV MCH MCHC RDW Plt Count MPV Immature Gran % (Auto) Neut % (Auto) Lymph % (Auto) [place] % (Auto) Eos % (Auto) Baso % (Auto) Lymph # (Auto) [place] # (Auto) Eos # (Auto) Baso # (Auto) Abs Immat Gran (auto) Absolute Neuts (auto) Absolute Nucleated RBC Nucleated RBC % (auto) PT INR Anion Gap Estim Creat Clear Calc Estimated GFR Random Glucose Calcium Magnesium Total Bilirubin Direct Bilirubin AST ALT Alkaline Phosphatase Total Protein Albumin Lipase Urine Color YELLOW Urine Appearance CLEAR Urine pH 5.5 Ur Specific [place] 1.025 Urine Protein 1+ H Urine Glucose (UA) >=1000 H Urine Ketones 15 Urine Blood TRACE Urine Nitrite NEG Ur Leukocyte Esterase NEG Urine RBC 0-2 Urine WBC 0-2 Ur Squamous Epith Cells TRACE Amorphous Sediment TRACE Urine Bacteria NONE Hyaline Casts 0-2 Granular Casts 1-4 Urine Mucus TRACE Stool Occult Blood POSITIVE COVID-19 (AGUSTINA) Negative COVID-19 Clin Com See Note <CRISTINA Beckman - Last Filed: 05/26/21 16:34> Imaging Radiologist's Impressions: Impressions Abdomen Ultrasound 05/26/21 13:34 IMPRESSION: No acute findings. No biliary dilatation. Hepatic steatosis. <CRISTINA Beckman Last Filed: 05/26/21 16:34> Assessment and Plan (1) BRBPR (bright red blood per rectum): Status: Acute <CRISTINA Beckman - Last Filed: 05/26/21 16:34> (2) Transaminitis: Status: Acute <CRISTINA Beckman - Last Filed: 05/26/21 16:34> (3) Hypomagnesemia: Status: Acute <CRISTINA Beckman - Last Filed: 05/26/21 16:34> Plan This is a 65-year-old male with history alcohol use disorder diabetes, hypertension hepatic steatosis, hemorrhoids who presents the emergency department bright red blood per rectum Acute GI bleeding Suspect lower GI source hemorrhoids or diverticular bleed. -clear liquid diet -IVF -Seen by GI, rec CT angio to localize bleeding if any further bleeding -Trend CBC, no indication for blood transfusion at this time Hypo magnesemia/hypokalemia Received 2 g of magnesium in the emergency department and 40 mEq of oral potassium -aggressive replacement and close monitoring -will give additional 2 gm magnesium -tele monitoring -EKG pending -continue home magnesium supplementation -follow levels daily Alcohol use disorder with history of withdrawal At risk for alcohol withdrawal -will start phenobarbital protocol -continue home thiamine, folate supplementation -consider care team evaluation prior to discharge -tele monitoring GUILHERME SCr 1.3, baseline .7 range -IVF -Follow BMP Elevated LFTs Likely secondary to hepatic steatosis/use Hepatitis panel pending -trend LFTs Thrombocytopenia Likely secondary to alcohol use Tobacco dependence Smoking cessation advised -NRT DM home medications on hold -SSI, POCs HTN BP soft -hold Lisinopril HLD hold statin in light of transaminitis Mood continue lexapro gerd continue po PPI DVT ppx - mechanical devices, no chemoprophylaxis due to GI bleeding Code status - Full code HCP - endorses his Radha as HCP Attending - Dr. Hillman <CRISTINA Beckman - Last Filed: 05/26/21 16:34> This is a 65-year-old male with history alcohol use disorder diabetes, hypertension hepatic steatosis, hemorrhoids who presents the emergency department bright red blood per rectum Acute GI bleeding Suspect lower GI source hemorrhoids or diverticular bleed. -clear liquid diet -IVF -Seen by GI, rec CT angio to localize bleeding if any further bleeding -Trend CBC, no indication for blood transfusion at this time Hypo magnesemia/hypokalemia Received 2 g of magnesium in the emergency department and 40 mEq of oral pot assium -aggressive replacement and close monitoring -will give additional 2 gm magnesium -tele monitoring -EKG pending -continue home magnesium supplementation -follow levels daily Alcohol use disorder with history of withdrawal At risk for alcohol withdrawal -will start phenobarbital protocol -continue home thiamine, folate supplementation -consider care team evaluation prior to discharge -tele monitoring GUILHERME SCr 1.3, baseline .7 range -IVF -Follow BMP Elevated LFTs Likely secondary to hepatic steatosis/use Hepatitis panel pending -trend LFTs Thrombocytopenia Likely secondary to alcohol use Tobacco dependence Smoking cessation advised -NRT DM home medications on hold -SSI, POCs HTN BP soft -hold Lisinopril HLD hold statin in light of transaminitis Mood continue lexapro gerd continue po PPI DVT ppx - mechanical devices, no chemoprophylaxis due to GI bleeding Code status - Full code HCP - endorses his Radha as HCP Attending - Dr. Hillman Chart reviewed. Pt examined. Agree with H+P/assesment and plan as outlined by Ms aMnish EVANS <Kenneth Hillman, DO - Last Filed: 05/26/21 18:32> Quality Stroke Does the patient have a stroke diagnosis?: No <CRISTINA Beckman - Last Filed: 05/26/21 16:34> VTE Prior VTE?: No <CRISTINA Beckman - Last Filed: 05/26/21 16:34> VTE Risk Level:: Medical - moderate - high <CRISTINA Beckman - Last Filed: 05/26/21 16:34> VTE Device Contraindication: N/A - Device Ordered <CRISTINA Beckman - Last Filed: 05/26/21 16:34> VTE Drug Contraindication: Treatment Not Indicated <CRISTINA Beckman - Last Filed: 05/26/21 16:34>
[2021-05-26 16:29] LABS: MANUAL DIFF FLAG NO
[2021-05-26 16:31] LABS: Basophils Percent Auto 0.5 % (0-2); Eosinophils Percent Auto 0.7 % (0-4); Hemoglobin 12.4 g/dl (14.0-18.0); Imm Gran Abs Auto 0.04 X10*3/uL (0.00-0.03); Imm Gran Pct Auto 0.7 % (0.0-0.4); Lymphocytes Absolute Auto 1.1 X10*3/uL (1.2-4.9); Lymphocytes Percent Auto 18.9 % (20-40); Mean Corpuscular HGB Conc 34.4 g/dl (31.0-36.0); Mean Corpuscular Hemoglobin 33.7 pg (27.0-33.0); Mean Corpuscular Volume 97.8 fL (80.0-98.0); Monocytes Absolute Auto 0.6 X10*3/uL (0.1-1.2); Monocytes Percent Auto 10.5 % (2-11); Neutrophils Percent Auto 68.7 % (45-73); Platelet Count 146 X10*3/uL (160-400); Red Blood Count 3.68 X10*6/uL (4.60-5.80); Red Cell Distribution Width 13.7 % (11.0-16.0); White Blood Count 5.8 X10*3/uL (4.8-10.8)
[2021-05-26 16:47] LABS: Ethanol < 10 mg/dL
[2021-05-26 16:55] LABS: Glucose, Whole Blood 144 mg/dL (60-115)
[2021-05-26] MEDS: PHENobarbitaL sodium 130 MG/ML VIAL 241 MG IM (17:12)
[2021-05-26] MEDS: Lactated Ringers 1,000 ML 100 ML IVCONT (17:55)
[2021-05-26] MEDS: PHENobarbitaL sodium 130 MG/ML VIAL 181 MG IM ×2 (20:28→23:08)
--- NOTE | 2021-05-26 20:44 | PC.NURSE ---
pt back from bathroom. pt states 10/10 rectal pain and reports a lot of bright red blood during bowel movement. vitals taken by this RN, troy. Hospitalist (Isha) notified of pt pain, vitals and symptoms. per hospitalist, administer prn Tylenol for pain at this time.
[2021-05-26] MEDS: Gabapentin 300 MG CAPSULE PO (20:50)
[2021-05-26] MEDS: Sennosides 8.6 MG TABLET PO (20:50)
[2021-05-26] MEDS: Acetaminophen 325 MG TABLET 650 MG PO (20:50)
--- NOTE | 2021-05-26 20:55 | PC.NURSE ---
phlebotomy at bedside obtaining lab work
[2021-05-26 20:56] LABS: Glucose, Whole Blood 159 mg/dL (60-115)
[2021-05-26] MEDS: Insulin Lispro 100 UNIT/ML 3 ML VIAL SUBCUT (20:58)
[2021-05-26 21:03] LABS: Hemoglobin 11.6 g/dl (14.0-18.0)
--- NOTE | 2021-05-26 23:05 | PC.NURSE ---
nurse to nurse report given to Gerson SUAREZ
[2021-05-27] MEDS: Lactated Ringers 1,000 ML 100 ML IVCONT ×2 (06:36→23:07)
[2021-05-27 07:29] LABS: MANUAL DIFF FLAG NO
[2021-05-27] MEDS: Thiamine HCL 100 MG TABLET PO (08:12)
[2021-05-27] MEDS: Escitalopram Oxalate 20 MG TABLET PO (08:12)
[2021-05-27] MEDS: Pyridoxine HCl (Vitamin B6) 50 MG TABLET PO (08:12)
[2021-05-27] MEDS: Magnesium Oxide 400 MG TABLET PO (08:13)
[2021-05-27] MEDS: Gabapentin 300 MG CAPSULE PO ×3 (08:13→21:12)
[2021-05-27] MEDS: Folic Acid 1 MG TABLET PO (08:13)
[2021-05-27] MEDS: PHENobarbitaL 30 MG TABLET 60 MG PO ×2 (08:13→21:12)
[2021-05-27 08:18] VITALS: BP 125/70; PULSE 82; RESP 18; TEMP 36.9
[2021-05-27 08:20] LABS: Basophils Percent Auto 0.9 % (0-2); Eosinophils Absolute Auto 0.1 X10*3/uL (0.0-0.4); Eosinophils Percent Auto 2.8 % (0-4); Hematocrit 30.4 % (42.0-52.0); Hemoglobin 10.5 g/dl (14.0-18.0); Imm Gran Abs Auto 0.02 X10*3/uL (0.00-0.03); Imm Gran Pct Auto 0.4 % (0.0-0.4); Lymphocytes Absolute Auto 1.2 X10*3/uL (1.2-4.9); Lymphocytes Percent Auto 26.6 % (20-40); Mean Corpuscular HGB Conc 34.5 g/dl (31.0-36.0); Mean Corpuscular Hemoglobin 34.2 pg (27.0-33.0); Mean Platelet Volume 11.1 fL (9.4-12.4); Monocytes Absolute Auto 0.6 X10*3/uL (0.1-1.2); Monocytes Percent Auto 13.2 % (2-11); Neutrophils Absolute Auto 2.6 x10*3/uL (2.0-8.3); Neutrophils Percent Auto 56.1 % (45-73); Platelet Count 123 X10*3/uL (160-400); Red Blood Count 3.07 X10*6/uL (4.60-5.80); White Blood Count 4.6 X10*3/uL (4.8-10.8)
[2021-05-27 08:40] LABS: Glucose, Whole Blood 163 mg/dL (60-115)
[2021-05-27 08:44] LABS: Alanine Aminotransferase 68 U/L (0-40); Albumin Level 3.2 g/dL (3.5-5.0); Alkaline Phosphatase 138 U/L (39-117); Anion Gap 20 (12-20); Aspartate Amino Transferase 107 U/L (5-37); Bilirubin Direct 0.8 mg/dL (0.0-0.5); Bilirubin Total 1.3 mg/dL (0.0-1.0); Blood Urea Nitrogen 16 mg/dL (9-16); Calcium 7.3 mg/dL (8.4-10.2); Carbon Dioxide 25 mmol/L (22-29); Chloride 99 mmol/L (96-108); Creatinine Clr Calc Pharmacy 80.5; Estimated Glomerular Filt Rate > 60; Glucose Random 111 mg/dL (60-115); Magnesium 1.6 mg/dL (1.6-2.6); Potassium 2.8 mmol/L (3.3-5.1); Sodium 141 mmol/L (135-145); Total Protein 5.3 g/dL (6.5-8.0)
[2021-05-27] MEDS: Insulin Lispro 100 UNIT/ML 3 ML VIAL SUBCUT (09:59)
[2021-05-27] MEDS: Potassium Chloride ER 20 MEQ TAB.ER.PRT 40 MEQ PO ×2 (10:00→21:12)
[2021-05-27] MEDS: Potassium Chloride/H20 10 MEQ/100 ML PIGGYBACK 100 MEQ IV ×2 (10:04→11:58)
--- NOTE | 2021-05-27 11:02 | P.PNIM_ITS ---
Subjective Subjective Date of Service: 05/27/21 <CRISTINA Beckman - Last Filed: 05/27/21 13:11> 06/07/21 <Kenneth Hillman DO - Last Filed: 06/07/21 15:47> Interval History: seen and examined this morning follow up for BRBPR, etoh dependence, electrolyte abnormalities had rectal bleeding overnight no abdominal pain denies feeling withdrawal symptoms <CRISTINA Beckman - Last Filed: 05/27/21 13:11> Review of Systems Review of Systems: Yes all other systems are reviewed and are negative <CRISTINA Beckman - Last Filed: 05/27/21 13:11> Constitutional Constitutional: Denies chills and Denies fever(s) <CRISTINA Beckman - Last Filed: 05/27/21 13:11> Cardiovascular Cardiovascular: Denies chest pain, Denies palpitations and Denies dyspnea <CRISTINA Beckman - Last Filed: 05/27/21 13:11> Respiratory Respiratory: Denies cough and Denies dyspnea <CRISTINA Beckman - Last Filed: 05/27/21 13:11> Gastrointestinal Gastrointestinal: Denies abdominal pain, Reports hematochezia, Denies nausea and Denies vomiting <CRISTINA Beckman - Last Filed: 05/27/21 13:11> Endocrine Endocrine: Denies palpitations <CRISTINA Beckman - Last Filed: 05/27/21 13:11> Physical Exam Vital Signs: Vital Signs: Last Vital Signs Temp 98.5 F 05/27/21 08:18 Pulse 82 05/27/21 08:18 Resp 18 05/27/21 08:18 BP 125/70 05/27/21 08:18 Pulse Ox 96 05/26/21 20:40 BMI result Body Mass Index 26.4 <CRISTINA Beckman - Last Filed: 05/27/21 13:11> Const: General: cooperative, comfortable, no acute distress, alert and awake <CRISTINA Beckman - Last Filed: 05/27/21 13:11> Nutritional Appearance: average body habitus <CRISTINA Beckman - Last Filed: 05/27/21 13:11> Orientation/consciousness: patient oriented x3 <CRISTINA Beckman - Last Filed: 05/27/21 13:11> Resp: Effort & Inspection: normal respiratory effort and able to speak in complete sentences <CRISTINA Beckman - Last Filed: 05/27/21 13:11> Auscultation: clear to auscultation bilaterally <CRISTINA Beckman - Last Filed: 05/27/21 13:11> Cardio: Rate: regular rate <CRISTINA Beckman - Last Filed: 05/27/21 13:11> Heart sounds: S1 normal heart sound present and S2 normal heart sound present <CRISTINA Beckman - Last Filed: 05/27/21 13:11> GI: Inspection: No distended <CRISTINA Beckman - Last Filed: 05/27/21 13:11> Palpation (GI): Soft to palpation and nontender <CRISTINA Beckman - Last Filed: 05/27/21 13:11> Neuro: General: patient oriented x3 <CRISTINA Beckman - Last Filed: 05/27/21 13:11> Extrem: Other: no leg edema <CRISTINA Beckman - Last Filed: 05/27/21 13:11> Objective Data Active Medications Acetaminophen (Acetaminophen 325 Mg Tablet) 650 mg PO Q6H PRN PRN Reason: Pain, Mild (Pain Scale 1-3) Last Admin: 05/26/21 20:50 Dose: 650 mg Documented by: BRITTANY Dextrose (Dextrose 50 % 25 Gm/50 Ml Syringe) 25 gm IVPUSH Q15M PRN; Protocol PRN Reason: per Hypoglycemia Standing Ord. Escitalopram Oxalate (Escitalopram Oxalate 20 Mg Tablet) 20 mg PO DAILY [facility] Last Admin: 05/27/21 08:12 Dose: 20 mg Documented by: TG Folic Acid (Folic Acid 1 Mg Tablet) 1 mg PO DAILY [facility] Last Admin: 05/27/21 08:13 Dose: 1 mg Documented by: TG Gabapentin (Gabapentin 300 Mg Capsule) 300 mg PO TID [facility] Last Admin: 05/27/21 08:13 Dose: 300 mg Documented by: TG Glucose (Glucose Gel 15 Gm Gel..Gram.) 15 gm PO Q15M PRN; Protocol PRN Reason: per Hypoglycemia Standing Ord. Hydrocortisone (Hydrocortisone 2.5 % Rectal Cr 30 Gm Tube) 1 appl [place] QID PRN PRN Reason: hemorrhoids Lactated Ringer's (Lr) 1,000 mls @ 100 mls/hr IVCONT .Q10H [facility] Last Admin: 05/27/21 06:36 Dose: 100 mls/hr Documented by: BETZY Insulin Human Lispro (Insulin Lispro 100 Unit/Ml 3 Ml Vial) 0 unit SUBCUT QIDACHS [facility]; Protocol Last Admin: 05/27/21 09:59 Dose: 2 unit Documented by: TG Magnesium Oxide (Magnesium Oxide 400 Mg Tablet) 400 mg PO DAILY [facility] Last Admin: 05/27/21 08:13 Dose: 400 mg Documented by: TG Medication (No Benzodiazepines) 1 each MISCELLANE DAILY [facility] Nicotine Polacrilex (Nicotine Polacrilex 2 Mg Gum) 2 mg BUCCAL Q2H PRN PRN Reason: Nicotine Cravings Omeprazole (Omeprazole 20 Mg Capsule.Dr) 20 mg PO DAILY@0630 [facility] Last Admin: 05/27/21 10:18 Dose: Not Given Documented by: TG Non-Admin Reason: prev shift Pharmacy Consult (Consult Rx Perform Med Rec) 1 each MISCELLANE ONCE PRN PRN Reason: Consult order Phenobarbital (Phenobarbital 30 Mg Tablet) 60 mg PO BID [facility] Stop: 05/28/21 21:01 Last Admin: 05/27/21 08:13 Dose: 60 mg Documented by: TG Phenobarbital (Phenobarbital 30 Mg Tablet) 30 mg PO BID [facility] Stop: 05/30/21 21:01 Phenobarbital (Phenobarbital 15 Mg Tablet) 15 mg PO DAILY [facility] Stop: 06/01/21 09:01 Potassium Chloride (Potassium Chloride Er 20 Meq Tab.Er.Prt) 40 meq PO BID [facility] Stop: 05/27/21 21:01 Last Admin: 05/27/21 10:00 Dose: 40 meq Documented by: TG Pyridoxine HCl (Pyridoxine Hcl (Vitamin B6) 50 Mg Tablet) 50 mg PO DAILY [facility] Last Admin: 05/27/21 08:12 Dose: 50 mg Documented by: TG Senna (Sennosides 8.6 Mg Tablet) 8.6 mg PO BEDTIME [facility] Last Admin: 05/26/21 20:50 Dose: 8.6 mg Documented by: BRITTANY Sodium Chloride (0.9 % Sodium Chloride Flush 3 Ml Syringe) 3 ml IVFLUSH QSHIFT [facility] Last Admin: 05/27/21 09:59 Dose: Not Given Documented by: TG Non-Admin Reason: IV Running Thiamine HCl (Thiamine Hcl 100 Mg Tablet) 100 mg PO DAILY [facility] Last Admin: 05/27/21 08:12 Dose: 100 mg Documented by: TG <CRISTINA Beckman - Last Filed: 05/27/21 13:11> Labs CBC & Chem 7: : 05/30/21 11:07 05/30/21 06:30 <CRISTINA Beckman - Last Filed: 05/27/21 13:11> Labs: Laboratory Results - last 24 hr 05/26/21 05/26/21 05/26/21 11:56 11:56 11:56 MCV 98.4 H MCH 34.0 H MCHC 34.5 RDW 13.7 Plt Count 135 L D MPV 10.3 Immature Gran % (Auto) 0.8 H Neut % (Auto) 67.1 Lymph % (Auto) 18.2 L [place] % (Auto) 12.0 H Eos % (Auto) 1.1 Baso % (Auto) 0.8 Lymph # (Auto) 1.0 L [place] # (Auto) 0.6 Eos # (Auto) 0.1 Baso # (Auto) 0.0 Abs Immat Gran (auto) 0.04 H Absolute Neuts (auto) 3.5 Absolute Nucleated RBC 0.000 Nucleated RBC % (auto) 0.0 PT 12.1 INR 1.1 Anion Gap 29 H Estim Creat Clear Calc 61.9 Estimated GFR 56 POC Glucose Random Glucose 150 H Calcium 8.2 L D Magnesium 0.9 L* Total Bilirubin 1.3 H Direct Bilirubin 0.9 H AST 149 H ALT 88 H Alkaline Phosphatase 174 H D Total Protein 6.2 L Albumin 3.7 Lipase 46 Urine Color Urine Appearance Urine pH Ur Specific [place] Urine Protein Urine Glucose (UA) Urine Ketones Urine Blood Urine Nitrite Ur Leukocyte Esterase Urine RBC Urine WBC Ur Squamous Epith Cells Amorphous Sediment Urine Bacteria Hyaline Casts Granular Casts Urine Mucus Stool Occult Blood Ethyl Alcohol COVID-19 ([facility]) COVID-19 Clin Com 05/26/21 05/26/21 05/26/21 11:56 11:56 12:50 MCV MCH MCHC RDW Plt Count MPV Immature Gran % (Auto) Neut % (Auto) Lymph % (Auto) [place] % (Auto) Eos % (Auto) Baso % (Auto) Lymph # (Auto) [place] # (Auto) Eos # (Auto) Baso # (Auto) Abs Immat Gran (auto) Absolute Neuts (auto) Absolute Nucleated RBC Nucleated RBC % (auto) PT INR Anion Gap Estim Creat Clear Calc Estimated GFR POC Glucose Random Glucose Calcium Magnesium Total Bilirubin Direct Bilirubin AST ALT Alkaline Phosphatase Total Protein Albumin Lipase Urine Color YELLOW Urine Appearance CLEAR Urine pH 5.5 Ur Specific [place] 1.025 Urine Protein 1+ H Urine Glucose (UA) >=1000 H Urine Ketones 15 Urine Blood TRACE Urine Nitrite NEG Ur Leukocyte Esterase NEG Urine RBC 0-2 Urine WBC 0-2 Ur Squamous Epith Cells TRACE Amorphous Sediment TRACE Urine Bacteria NONE Hyaline Casts 0-2 Granular Casts 1-4 Urine Mucus TRACE Stool Occult Blood POSITIVE Ethyl Alcohol COVID-19 ([facility]) Negative COVID-19 Clin Com See Note 05/26/21 05/26/21 05/26/21 16:24 16:24 16:49 MCV 97.8 MCH 33.7 H MCHC 34.4 RDW 13.7 Plt Count 146 L MPV 10.0 Immature Gran % (Auto) 0.7 H Neut % (Auto) 68.7 Lymph % (Auto) 18.9 L [place] % (Auto) 10.5 Eos % (Auto) 0.7 Baso % (Auto) 0.5 Lymph # (Auto) 1.1 L [place] # (Auto) 0.6 Eos # (Auto) 0.0 Baso # (Auto) 0.0 Abs Immat Gran (auto) 0.04 H Absolute Neuts (auto) 4.0 Absolute Nucleated RBC 0.000 Nucleated RBC % (auto) 0.0 PT INR Anion Gap Estim Creat Clear Calc Estimated GFR POC Glucose 144 H Random Glucose Calcium Magnesium Total Bilirubin Direct Bilirubin AST ALT Alkaline Phosphatase Total Protein Albumin Lipase Urine Color Urine Appearance Urine pH Ur Specific [place] Urine Protein Urine Glucose (UA) Urine Ketones Urine Blood Urine Nitrite Ur Leukocyte Esterase Urine RBC Urine WBC Ur Squamous Epith Cells Amorphous Sediment Urine Bacteria Hyaline Casts Granular Casts Urine Mucus Stool Occult Blood Ethyl Alcohol < 10 COVID-19 ([facility]) COVID-19 Clin Com 05/26/21 05/27/21 05/27/21 20:52 07:15 07:15 MCV 99.0 H MCH 34.2 H MCHC 34.5 RDW 14.0 Plt Count 123 L MPV 11.1 Immature Gran % (Auto) 0.4 Neut % (Auto) 56.1 Lymph % (Auto) 26.6 [place] % (Auto) 13.2 H Eos % (Auto) 2.8 Baso % (Auto) 0.9 Lymph # (Auto) 1.2 [place] # (Auto) 0.6 Eos # (Auto) 0.1 Baso # (Auto) 0.0 Abs Immat Gran (auto) 0.02 Absolute Neuts (auto) 2.6 Absolute Nucleated RBC 0.000 Nucleated RBC % (auto) 0.0 PT INR Anion Gap 20 Estim Creat Clear Calc 80.5 Estimated GFR > 60 POC Glucose 159 H Random Glucose 111 Calcium 7.3 L D Magnesium 1.6 Total Bilirubin 1.3 H Direct Bilirubin 0.8 H AST 107 H ALT 68 H Alkaline Phosphatase 138 H D Total Protein 5.3 L Albumin 3.2 L Lipase Urine Color Urine Appearance Urine pH Ur Specific [place] Urine Protein Urine Glucose (UA) Urine Ketones Urine Blood Urine Nitrite Ur Leukocyte Esterase Urine RBC Urine WBC Ur Squamous Epith Cells Amorphous Sediment Urine Bacteria Hyaline Casts Granular Casts Urine Mucus Stool Occult Blood Ethyl Alcohol COVID-19 ([facility]) COVID-19 Clin Com 05/27/21 08:27 MCV MCH MCHC RDW Plt Count MPV Immature Gran % (Auto) Neut % (Auto) Lymph % (Auto) [place] % (Auto) Eos % (Auto) Baso % (Auto) Lymph # (Auto) [place] # (Auto) Eos # (Auto) Baso # (Auto) Abs Immat Gran (auto) Absolute Neuts (auto) Absolute Nucleated RBC Nucleated RBC % (auto) PT INR Anion Gap Estim Creat Clear Calc Estimated GFR POC Glucose 163 H Random Glucose Calcium Magnesium Total Bilirubin Direct Bilirubin AST ALT Alkaline Phosphatase Total Protein Albumin Lipase Urine Color Urine Appearance Urine pH Ur Specific [place] Urine Protein Urine Glucose (UA) Urine Ketones Urine Blood Urine Nitrite Ur Leukocyte Esterase Urine RBC Urine WBC Ur Squamous Epith Cells Amorphous Sediment Urine Bacteria Hyaline Casts Granular Casts Urine Mucus Stool Occult Blood Ethyl Alcohol COVID-19 ([facility]) COVID-19 Clin Com <CRISTINA Beckman - Last Filed: 05/27/21 13:11> Assessment and Plan (1) BRBPR (bright red blood per rectum): Status: Resolved <RCISTINA Beckman - Last Filed: 05/27/21 13:11> (2) Hypomagnesemia: Status: Acute <CRISTINA Beckman - Last Filed: 05/27/21 13:11> Plan This is a 65-year-old male with history alcohol use disorder diabetes, hypertension hepatic steatosis, hemorrhoids who presents the emergency department bright red blood per rectum Acute GI bleeding Suspect lower GI source hemorrhoids or diverticular bleed. Some drop in H/H although suspect some effect of dilution -clear liquid diet -IVF -Seen by GI, rec CT angio to localize bleeding if any further bleeding -Trend CBC, no indication for blood transfusion at this time Hypo magnesemia/hypokalemia Potassium still low, magnesium low/normal today -continue aggressive replacement and close monitoring -will give additional 2 gm magnesium -tele monitoring -continue home magnesium supplementation -follow levels daily Alcohol use disorder with history of withdrawal At risk for alcohol withdrawal -continue phenobarbital protocol -continue home thiamine, folate supplementation -care team evaluation pending -tele monitoring GUILHERME SCr 1.3, baseline .7 range; creatinine trending down -IVF -Follow BMP Elevated LFTs Likely secondary to hepatic steatosis/alcohol use Hepatitis panel pending LFTs trending down Thrombocytopenia Likely secondary to alcohol use follow CBC Tobacco dependence Smoking cessation advised -NRT DM home medications on hold -SSI, POCs HTN BP soft, GUILHERME -hold Lisinopril HLD hold statin in light of transaminitis Mood continue lexapro gerd continue po PPI DVT ppx - mechanical devices, no chemoprophylaxis due to GI bleeding Code status - Full code HCP - endorses his Radha as HCP Attending - Dr. Hillman <CRISTINA Beckman - Last Filed: 05/27/21 13:11> This is a 65-year-old male with history alcohol use disorder diabetes, hypertension hepatic steatosis, hemorrhoids who presents the emergency department bright red blood per rectum Acute GI bleeding Suspect lower GI source hemorrhoids or diverticular bleed. Some drop in H/H although suspect some effect of dilution -clear liquid diet -IVF -Seen by GI, rec CT angio to localize bleeding if any further bleeding -Trend CBC, no indication for blood transfusion at this time Hypo magnesemia/hypokalemia Potassium still low, magnesium low/normal today -continue aggressive replacement and close monitoring -will give additional 2 gm magnesium -tele monitoring -continue home magnesium supplementation -follow levels daily Alcohol use disorder with history of withdrawal At risk for alcohol withdrawal -continue phenobarbital protocol -continue home thiamine, folate supplementation -care team evaluation pending -tele monitoring GUILHERME SCr 1.3, baseline .7 range; creatinine trending down -IVF -Follow BMP Elevated LFTs Likely secondary to hepatic steatosis/alcohol use Hepatitis panel pending LFTs trending down Thrombocytopenia Likely secondary to alcohol use follow CBC Tobacco dependence Smoking cessation advised -NRT DM home medications on hold -SSI, POCs HTN BP soft, GUILHERME -hold Lisinopril HLD hold statin in light of transaminitis Mood continue lexapro gerd continue po PPI DVT ppx - mechanical devices, no chemoprophylaxis due to GI bleeding Code status - Full code HCP - endorses his Radha as HCP Attending - Dr. Hillman Agree with history and physical and physical exam as outlined by Ms. Manish EVANS <Kenneth Hillman, DO - Last Filed: 06/07/21 15:47> Quality Stroke Does the patient have a stroke diagnosis?: No <CRISTINA Beckman - Last Filed: 05/27/21 13:11> VTE Prior VTE?: No <CRISTINA Beckman - Last Filed: 05/27/21 13:11> VTE Risk Level:: Medical - moderate - high <CRISTINA Beckman - Last Filed: 05/27/21 13:11> VTE Device Contraindication: N/A - Device Ordered <CRISTINA Beckman - Last Filed: 05/27/21 13:11> VTE Drug Contraindication: Treatment Not Indicated <CRISTINA Beckman - Last Filed: 05/27/21 13:11>
[2021-05-27] MEDS: Magnesium Sulfate/H2O 2 GM/50 ML PIGGYBACK IV (11:48)
--- NOTE | 2021-05-27 12:28 | MHC.CM.PN ---
CM ATTEMPTED TO SEE PT WHO WAS SLEEPING CM TO REVISIT
[2021-05-27 13:44] LABS: Glucose, Whole Blood 112 mg/dL (60-115)
[2021-05-27 16:18] LABS: Hematocrit 30.5 % (42.0-52.0); Hemoglobin 10.6 g/dl (14.0-18.0)
[2021-05-27 16:59] VITALS: BP 98/56; PULSE 64; RESP 18; TEMP 36.8
[2021-05-27] MEDS: bisacodyL 5 MG TABLET.DR 10 MG PO (17:05)
[2021-05-27 18:11] VITALS: BP 104/72; PULSE 72; RESP 15; TEMP 36.8; O2SAT 94
[2021-05-27 18:19] LABS: Glucose, Whole Blood 108 mg/dL (60-115)
[2021-05-27] MEDS: PEG 3350/Na Sulf,Bicarb,Cl/KCL 4,000 ML SOLN.RECON 4000 ML PO (18:55)
[2021-05-27 19:48] VITALS: BP 128/78; PULSE 94; RESP 16; TEMP 36.8; O2SAT 94
[2021-05-27 20:40] LABS: Glucose, Whole Blood 139 mg/dL (60-115)
[2021-05-27] MEDS: 0.9 % Sodium Chloride Flush 3 ML SYRINGE IVFLUSH (21:13)
[2021-05-27 23:10] VITALS: BP 112/72; PULSE 80; RESP 20; TEMP 37.1; O2SAT 95
[2021-05-28] VITALS (7 sets, daily range): BP systolic 97–128; BP diastolic 56–70; PULSE 66–81; RESP 12–20; TEMP 36.2–37.4; O2SAT 93–97
[2021-05-28 04:10] LABS: HBS Num1 3.26 mIU/mL (0-7.99); HBc Num1 0.04 S/CO (0.00-0.79); Hepatitis B Core Antibody Nonreactive (Nonreactive); ~HepC Num1 0.07 S/CO (0.00-0.79); ~Hepatitis B Surface Antibody NONREACTIVE (Nonreactive); ~Hepatitis C Antibody Nonreactive (Nonreactive)
[2021-05-28 04:11] LABS: HBsAGNum1 0.17 S/CO (0.00-0.99); Hepatitis B Surface Antigen Negative (Negative)
[2021-05-28] MEDS: Omeprazole 20 MG CAPSULE.DR PO (06:16)
[2021-05-28 06:23] LABS: Hematocrit 28.6 % (42.0-52.0); Hemoglobin 9.7 g/dl (14.0-18.0); Mean Corpuscular HGB Conc 33.9 g/dl (31.0-36.0); Mean Corpuscular Hemoglobin 33.6 pg (27.0-33.0); Mean Platelet Volume 11.1 fL (9.4-12.4); PLT CLUMP 1; Red Blood Count 2.89 X10*6/uL (4.60-5.80); Red Cell Distribution Width 13.6 % (11.0-16.0)
[2021-05-28 06:36] LABS: Platelet Count 107 X10*3/uL (160-400); White Blood Count 4.4 X10*3/uL (4.8-10.8)
[2021-05-28 06:40] LABS: Alanine Aminotransferase 63 U/L (0-40); Albumin Level 2.9 g/dL (3.5-5.0); Alkaline Phosphatase 124 U/L (39-117); Anion Gap 17 (12-20); Aspartate Amino Transferase 109 U/L (5-37); Bilirubin Direct 0.5 mg/dL (0.0-0.5); Bilirubin Total 0.8 mg/dL (0.0-1.0); Blood Urea Nitrogen 11 mg/dL (9-16); Calcium 6.8 mg/dL (8.4-10.2); Carbon Dioxide 27 mmol/L (22-29); Chloride 99 mmol/L (96-108); Creatinine Clr Calc Pharmacy 101.9; Estimated Glomerular Filt Rate > 60; Glucose Random 106 mg/dL (60-115); Magnesium 1.3 mg/dL (1.6-2.6); Potassium 3.1 mmol/L (3.3-5.1); Sodium 140 mmol/L (135-145); Total Protein 4.9 g/dL (6.5-8.0)
[2021-05-28 07:35] LABS: Glucose, Whole Blood 105 mg/dL (60-115)
--- NOTE | 2021-05-28 08:32 | MHC.CM.PN ---
CM met with Patient at bedside. Patient lives in a house with his /HCP and 29 year old Daughter and he is functionally independent. Home/no services is the goal for dc and CM has initiated and will follow for dc planning.Patient has received Convergin vax X3 and his PCP is Dr. Balbir Schmid.
[2021-05-28] MEDS: Pyridoxine HCl (Vitamin B6) 50 MG TABLET PO (09:24)
[2021-05-28] MEDS: PHENobarbitaL 30 MG TABLET 60 MG PO ×2 (09:24→20:23)
[2021-05-28] MEDS: Thiamine HCL 100 MG TABLET PO (09:24)
[2021-05-28] MEDS: Lactated Ringers 1,000 ML 100 ML IVCONT (09:24)
[2021-05-28] MEDS: Folic Acid 1 MG TABLET PO (09:24)
[2021-05-28] MEDS: Magnesium Oxide 400 MG TABLET PO (09:25)
[2021-05-28] MEDS: Gabapentin 300 MG CAPSULE PO ×3 (09:25→20:23)
[2021-05-28] MEDS: Escitalopram Oxalate 20 MG TABLET PO (09:25)
--- NOTE | 2021-05-28 10:33 | MHC.RECOVSUP ---
Recovery Support note: This ghost writer met with patient in [id number] to discuss his alcohol use and recovery supports. Patient reports drinking about 3 beers a day in addition to 1-2 mixed drinks. Patient reports his pattern of drinking is not creating any issues for him however he is interested in cutting back, citing health concerns as he gets older. Discussed IOP, AA, outpatient therapy and medications for alcohol use disorder with patient. Patient has done an IOP through [facility] and did not find it helpful. Patient was open to AA information and accepted a list of AA meetings for [place]. Patient accepted information on Naltrexone/ Vivitrol and plans to discuss this with his primary care doctor. Patient expressed interest in an outpatient therapy referral which was completed through [facility]. Patient provided with contact information for this ghost writer in the event that he has additional questions.
--- NOTE | 2021-05-28 10:51 | MHC.CLN ---
WT LOSS 14-23# REPORTED ON NURSING ADMISSION ASSESSMENT PT PREVIOUS WT HX REVEALS: 86.1KG 05/26/21 87.9KG (11/28/20) 87.4KG (06/07/20) PT DOES NOT TRIGGER FOR SIGNIFICANT WT LOSS AT THIS TIME
[2021-05-28 11:10] LABS: Glucose, Whole Blood 122 mg/dL (60-115)
--- NOTE | 2021-05-28 12:45 | P.CONAN_ITS ---
[facility] Active Problems Active Problems: All Active Problems (Updated 05/26/21 @ 13:15 by CRISTINA Castillo) BRBPR (bright red blood per rectum) (Acute) Hypomagnesemia (Acute) Transaminitis (Acute) Wheeze (Acute) Hemorrhoids without complication (Acute) Dry eye syndrome of both eyes (Acute) History of alcohol abuse (Acute) Diabetes mellitus with neuropathy (Acute) Essential hypertension (Acute) Hyperlipidemia (Acute) Colon polyps (Acute) Annual physical exam (Acute) Elevated transaminase level (Acute) Screening for colon cancer (Acute) Screening for prostate cancer (Acute) Diabetes type 2, uncontrolled (Acute) PVD (peripheral vascular disease) (Acute) Diabetic polyneuropathy associated with type 2 diabetes mellitus (Acute) Diabetes type 2, controlled (Acute) Past Medical History Medical History Alcohol abuse Anxiety Depression Diabetes Diabetes type 2, controlled Diabetes type 2, uncontrolled Diabetic polyneuropathy associated with type 2 diabetes mellitus Hemorrhoids without complication Hypertension Neuropathy PVD (peripheral vascular disease) Functional capacity: independent ambulation Family History Family History Mother No problems noted. Father No problems noted. Surgical History Surgical History H/O colonoscopy History of Problems with Anesthesia: No Social History Social History Household Members: Family Housing: House Do you presently have visiting nurse or other home services: No Alcohol intake: current Alcohol intake frequency: 0-2 drinks per day Patient Tobacco Use Status: Current everyday Tobacco user Tobacco use type: Cigarette Cigarettes Per Day: 4 e-Cigarette/Vaping Use: Never Used Second Hand Smoke Exposure: No service: No Current occupational status: retired Cognitive needs: No Hearing needs: No Vision needs: No Meds Allergies Allergy/AdvReac Type Severity Reaction Status Date / Time niacin [NIACIN] AdvReac Mild RED FLUSH, Verified 05/04/21 15:02 SHAKING Active Medications: Current Medications Acetaminophen (Acetaminophen 325 Mg Tablet) 650 mg PO Q6H PRN PRN Reason: Pain, Mild (Pain Scale 1-3) Last Admin: 05/26/21 20:50 Dose: 650 mg Documented by: Dextrose (Dextrose 50 % 25 Gm/50 Ml Syringe) 25 gm IVPUSH Q15M PRN; Protocol PRN Reason: per Hypoglycemia Standing Ord. Escitalopram Oxalate (Escitalopram Oxalate 20 Mg Tablet) 20 mg PO DAILY COUNTS INCLUDE 234 BEDS AT THE [facility] Last Admin: 05/28/21 09:25 Dose: 20 mg Documented by: Folic Acid (Folic Acid 1 Mg Tablet) 1 mg PO DAILY COUNTS INCLUDE 234 BEDS AT THE [facility] Last Admin: 05/28/21 09:24 Dose: 1 mg Documented by: Gabapentin (Gabapentin 300 Mg Capsule) 300 mg PO TID COUNTS INCLUDE 234 BEDS AT THE [facility] Last Admin: 05/28/21 09:25 Dose: 300 mg Documented by: Glucose (Glucose Gel 15 Gm Gel..Gram.) 15 gm PO Q15M PRN; Protocol PRN Reason: per Hypoglycemia Standing Ord. Hydrocortisone (Hydrocortisone 2.5 % Rectal Cr 30 Gm Tube) 1 appl HI QID PRN PRN Reason: hemorrhoids Lactated Ringer's (Lr) 1,000 mls @ 100 mls/hr IVCONT .Q10H COUNTS INCLUDE 234 BEDS AT THE [facility] Last Admin: 05/28/21 09:24 Dose: 100 mls/hr Documented by: Insulin Human Lispro (Insulin Lispro 100 Unit/Ml 3 Ml Vial) 0 unit SUBCUT QIDACHS COUNTS INCLUDE 234 BEDS AT THE [facility]; Protocol Last Admin: 05/28/21 11:21 Dose: Not Given Documented by: Magnesium Oxide (Magnesium Oxide 400 Mg Tablet) 400 mg PO DAILY COUNTS INCLUDE 234 BEDS AT THE [facility] Last Admin: 05/28/21 09:25 Dose: 400 mg Documented by: Medication (No Benzodiazepines) 1 each MISCELLANE DAILY COUNTS INCLUDE 234 BEDS AT THE [facility] Nicotine Polacrilex (Nicotine Polacrilex 2 Mg Gum) 2 mg BUCCAL Q2H PRN PRN Reason: Nicotine Cravings Omeprazole (Omeprazole 20 Mg Capsule.Dr) 20 mg PO DAILY@0630 COUNTS INCLUDE 234 BEDS AT THE [facility] Last Admin: 05/28/21 06:16 Dose: 20 mg Documented by: Pharmacy Consult (Consult Rx Perform Med Rec) 1 each MISCELLANE ONCE PRN PRN Reason: Consult order Phenobarbital (Phenobarbital 30 Mg Tablet) 60 mg PO BID COUNTS INCLUDE 234 BEDS AT THE [facility] Stop: 05/28/21 21:01 Last Admin: 05/28/21 09:24 Dose: 60 mg Documented by: Phenobarbital (Phenobarbital 30 Mg Tablet) 30 mg PO BID COUNTS INCLUDE 234 BEDS AT THE [facility] Stop: 05/30/21 21:01 Phenobarbital (Phenobarbital 15 Mg Tablet) 15 mg PO DAILY COUNTS INCLUDE 234 BEDS AT THE [facility] Stop: 06/01/21 09:01 Pyridoxine HCl (Pyridoxine Hcl (Vitamin B6) 50 Mg Tablet) 50 mg PO DAILY COUNTS INCLUDE 234 BEDS AT THE [facility] Last Admin: 05/28/21 09:24 Dose: 50 mg Documented by: Senna (Sennosides 8.6 Mg Tablet) 8.6 mg PO BEDTIME COUNTS INCLUDE 234 BEDS AT THE [facility] Last Admin: 05/27/21 21:19 Dose: Not Given Documented by: Sodium Chloride (0.9 % Sodium Chloride Flush 3 Ml Syringe) 3 ml IVFLUSH QSHIFT COUNTS INCLUDE 234 BEDS AT THE [facility] Last Admin: 05/28/21 09:23 Dose: Not Given Documented by: Thiamine HCl (Thiamine Hcl 100 Mg Tablet) 100 mg PO DAILY COUNTS INCLUDE 234 BEDS AT THE [facility] Last Admin: 05/28/21 09:24 Dose: 100 mg Documented by: Home Medications Medication Instructions Recorded Confirmed Last Taken Type atorvastatin 80 mg tablet 1 tab PO DAILY 06/07/20 05/26/21 06/07/20 History lansoprazole 30 mg capsule,delayed 1 cap PO DAILY 06/07/20 05/26/21 06/07/20 History release lisinopril 40 mg tablet 1 tab PO DAILY 06/07/20 05/26/21 06/07/20 History magnesium oxide 400 mg (241.3 mg 400 mg PO DAILY 11/28/20 05/26/21 Unknown History magnesium) tablet pyridoxine (vitamin B6) 50 mg 50 mg PO DAILY 11/28/20 05/26/21 Unknown History tablet Exam Exam Date and Time: May 28, 2021 1245 Height,Weight and Vital Signs: Height 5 ft 11 in Weight 86.183 kg Last Vital Signs Temp 98.5 F 05/28/21 12:17 Pulse 68 05/28/21 12:17 Resp 16 05/28/21 12:17 BP 105/63 05/28/21 12:17 Pulse Ox 93 05/28/21 12:17 Pertinent Lab Results Pertinent Lab Results: Laboratory Tests 05/26/21 05/26/21 05/26/21 11:56 11:56 11:56 WBC 5.2 RBC 3.71 L Hgb 12.6 L Hct 36.5 L MCV 98.4 H MCH 34.0 H MCHC 34.5 RDW 13.7 Plt Count 135 L D MPV 10.3 Immature Gran % (Auto) 0.8 H Neut % (Auto) 67.1 Lymph % (Auto) 18.2 L [place] % (Auto) 12.0 H Eos % (Auto) 1.1 Baso % (Auto) 0.8 Lymph # (Auto) 1.0 L [place] # (Auto) 0.6 Eos # (Auto) 0.1 Baso # (Auto) 0.0 Abs Immat Gran (auto) 0.04 H Absolute Neuts (auto) 3.5 Absolute Nucleated RBC 0.000 Nucleated RBC % (auto) 0.0 PT 12.1 INR 1.1 Sodium 144 Potassium 3.2 L Chloride 95 L Carbon Dioxide 23 Anion Gap 29 H BUN 21 H Creatinine 1.30 Estim Creat Clear Calc 61.9 Estimated GFR 56 POC Glucose Random Glucose 150 H Calcium 8.2 L D Magnesium 0.9 L* Total Bilirubin 1.3 H Direct Bilirubin 0.9 H AST 149 H ALT 88 H Alkaline Phosphatase 174 H D Total Protein 6.2 L Albumin 3.7 Lipase 46 Urine Color Urine Appearance Urine pH Ur Specific [place] Urine Protein Urine Glucose (UA) Urine Ketones Urine Blood Urine Nitrite Ur Leukocyte Esterase Urine RBC Urine WBC Ur Squamous Epith Cells Amorphous Sediment Urine Bacteria Hyaline Casts Granular Casts Urine Mucus Stool Occult Blood Ethyl Alcohol COVID-19 ([facility]) COVID-19 Clin Com Hep Bs Antigen Hep Bs Antibody Hep B Core Total Ab Hepatitis C Ab (EIA) 05/26/21 05/26/21 05/26/21 11:56 11:56 11:58 WBC RBC Hgb Hct MCV MCH MCHC RDW Plt Count MPV Immature Gran % (Auto) Neut % (Auto) Lymph % (Auto) [place] % (Auto) Eos % (Auto) Baso % (Auto) Lymph # (Auto) [place] # (Auto) Eos # (Auto) Baso # (Auto) Abs Immat Gran (auto) Absolute Neuts (auto) Absolute Nucleated RBC Nucleated RBC % (auto) PT INR Sodium Potassium Chloride Carbon Dioxide Anion Gap BUN Creatinine Estim Creat Clear Calc Estimated GFR POC Glucose Random Glucose Calcium Magnesium Total Bilirubin Direct Bilirubin AST ALT Alkaline Phosphatase Total Protein Albumin Lipase Urine Color Urine Appearance Urine pH Ur Specific [place] Urine Protein Urine Glucose (UA) Urine Ketones Urine Blood Urine Nitrite Ur Leukocyte Esterase Urine RBC Urine WBC Ur Squamous Epith Cells Amorphous Sediment Urine Bacteria Hyaline Casts Granular Casts Urine Mucus Stool Occult Blood POSITIVE Ethyl Alcohol COVID-19 ([facility]) Negative COVID-19 Clin Com See Note Hep Bs Antigen Negative Hep Bs Antibody NONREACTIVE Hep B Core Total Ab Nonreactive Hepatitis C Ab (EIA) Nonreactive 05/26/21 05/26/21 05/26/21 12:50 16:24 16:24 WBC 5.8 RBC 3.68 L Hgb 12.4 L Hct 36.0 L MCV 97.8 MCH 33.7 H MCHC 34.4 RDW 13.7 Plt Count 146 L MPV 10.0 Immature Gran % (Auto) 0.7 H Neut % (Auto) 68.7 Lymph % (Auto) 18.9 L [place] % (Auto) 10.5 Eos % (Auto) 0.7 Baso % (Auto) 0.5 Lymph # (Auto) 1.1 L [place] # (Auto) 0.6 Eos # (Auto) 0.0 Baso # (Auto) 0.0 Abs Immat Gran (auto) 0.04 H Absolute Neuts (auto) 4.0 Absolute Nucleated RBC 0.000 Nucleated RBC % (auto) 0.0 PT INR Sodium Potassium Chloride Carbon Dioxide Anion Gap BUN Creatinine Estim Creat Clear Calc Estimated GFR POC Glucose Random Glucose Calcium Magnesium Total Bilirubin Direct Bilirubin AST ALT Alkaline Phosphatase Total Protein Albumin Lipase Urine Color YELLOW Urine Appearance CLEAR Urine pH 5.5 Ur Specific [place] 1.025 Urine Protein 1+ H Urine Glucose (UA) >=1000 H Urine Ketones 15 Urine Blood TRACE Urine Nitrite NEG Ur Leukocyte Esterase NEG Urine RBC 0-2 Urine WBC 0-2 Ur Squamous Epith Cells TRACE Amorphous Sediment TRACE Urine Bacteria NONE Hyaline Casts 0-2 Granular Casts 1-4 Urine Mucus TRACE Stool Occult Blood Ethyl Alcohol < 10 COVID-19 ([facility]) COVID-19 Clin Com Hep Bs Antigen Hep Bs Antibody Hep B Core Total Ab Hepatitis C Ab (EIA) 05/26/21 05/26/21 05/26/21 16:49 20:52 20:56 WBC RBC Hgb 11.6 L Hct 35.0 L MCV MCH MCHC RDW Plt Count MPV Immature Gran % (Auto) Neut % (Auto) Lymph % (Auto) [place] % (Auto) Eos % (Auto) Baso % (Auto) Lymph # (Auto) [place] # (Auto) Eos # (Auto) Baso # (Auto) Abs Immat Gran (auto) Absolute Neuts (auto) Absolute Nucleated RBC Nucleated RBC % (auto) PT INR Sodium Potassium Chloride Carbon Dioxide Anion Gap BUN Creatinine Estim Creat Clear Calc Estimated GFR POC Glucose 144 H 159 H Random Glucose Calcium Magnesium Total Bilirubin Direct Bilirubin AST ALT Alkaline Phosphatase Total Protein Albumin Lipase Urine Color Urine Appearance Urine pH Ur Specific [place] Urine Protein Urine Glucose (UA) Urine Ketones Urine Blood Urine Nitrite Ur Leukocyte Esterase Urine RBC Urine WBC Ur Squamous Epith Cells Amorphous Sediment Urine Bacteria Hyaline Casts Granular Casts Urine Mucus Stool Occult Blood Ethyl Alcohol COVID-19 ([facility]) COVID-19 Clin Com Hep Bs Antigen Hep Bs Antibody Hep B Core Total Ab Hepatitis C Ab (EIA) 05/27/21 05/27/21 05/27/21 07:15 07:15 08:27 WBC 4.6 L RBC 3.07 L Hgb 10.5 L Hct 30.4 L MCV 99.0 H MCH 34.2 H MCHC 34.5 RDW 14.0 Plt Count 123 L MPV 11.1 Immature Gran % (Auto) 0.4 Neut % (Auto) 56.1 Lymph % (Auto) 26.6 [place] % (Auto) 13.2 H Eos % (Auto) 2.8 Baso % (Auto) 0.9 Lymph # (Auto) 1.2 [place] # (Auto) 0.6 Eos # (Auto) 0.1 Baso # (Auto) 0.0 Abs Immat Gran (auto) 0.02 Absolute Neuts (auto) 2.6 Absolute Nucleated RBC 0.000 Nucleated RBC % (auto) 0.0 PT INR Sodium 141 Potassium 2.8 L Chloride 99 Carbon Dioxide 25 Anion Gap 20 BUN 16 Creatinine 1.00 Estim Creat Clear Calc 80.5 Estimated GFR > 60 POC Glucose 163 H Random Glucose 111 Calcium 7.3 L D Magnesium 1.6 Total Bilirubin 1.3 H Direct Bilirubin 0.8 H AST 107 H ALT 68 H Alkaline Phosphatase 138 H D Total Protein 5.3 L Albumin 3.2 L Lipase Urine Color Urine Appearance Urine pH Ur Specific [place] Urine Protein Urine Glucose (UA) Urine Ketones Urine Blood Urine Nitrite Ur Leukocyte Esterase Urine RBC Urine WBC Ur Squamous Epith Cells Amorphous Sediment Urine Bacteria Hyaline Casts Granular Casts Urine Mucus Stool Occult Blood Ethyl Alcohol COVID-19 ([place]) COVID-19 Clin Com Hep Bs Antigen Hep Bs Antibody Hep B Core Total Ab Hepatitis C Ab (EIA) 05/27/21 05/27/21 05/27/21 13:35 15:55 18:16 WBC RBC Hgb 10.6 L Hct 30.5 L MCV MCH MCHC RDW Plt Count MPV Immature Gran % (Auto) Neut % (Auto) Lymph % (Auto) [place] % (Auto) Eos % (Auto) Baso % (Auto) Lymph # (Auto) [place] # (Auto) Eos # (Auto) Baso # (Auto) Abs Immat Gran (auto) Absolute Neuts (auto) Absolute Nucleated RBC Nucleated RBC % (auto) PT INR Sodium Potassium Chloride Carbon Dioxide Anion Gap BUN Creatinine Estim Creat Clear Calc Estimated GFR POC Glucose 112 108 Random Glucose Calcium Magnesium Total Bilirubin Direct Bilirubin AST ALT Alkaline Phosphatase Total Protein Albumin Lipase Urine Color Urine Appearance Urine pH Ur Specific [place] Urine Protein Urine Glucose (UA) Urine Ketones Urine Blood Urine Nitrite Ur Leukocyte Esterase Urine RBC Urine WBC Ur Squamous Epith Cells Amorphous Sediment Urine Bacteria Hyaline Casts Granular Casts Urine Mucus Stool Occult Blood Ethyl Alcohol COVID-19 ([facility]) COVID-19 Clin Com Hep Bs Antigen Hep Bs Antibody Hep B Core Total Ab Hepatitis C Ab (EIA) 05/27/21 05/28/21 05/28/21 20:24 05:11 05:11 WBC 4.4 L RBC 2.89 L Hgb 9.7 L Hct 28.6 L MCV 99.0 H MCH 33.6 H MCHC 33.9 RDW 13.6 Plt Count 107 L MPV 11.1 Immature Gran % (Auto) Neut % (Auto) Lymph % (Auto) [place] % (Auto) Eos % (Auto) Baso % (Auto) Lymph # (Auto) [place] # (Auto) Eos # (Auto) Baso # (Auto) Abs Immat Gran (auto) Absolute Neuts (auto) Absolute Nucleated RBC 0.000 Nucleated RBC % (auto) 0.0 PT INR Sodium 140 Potassium 3.1 L Chloride 99 Carbon Dioxide 27 Anion Gap 17 BUN 11 Creatinine 0.79 Estim Creat Clear Calc 101.9 Estimated GFR > 60 POC Glucose 139 H Random Glucose 106 Calcium 6.8 L D Magnesium 1.3 L* Total Bilirubin 0.8 Direct Bilirubin 0.5 AST 109 H ALT 63 H Alkaline Phosphatase 124 H Total Protein 4.9 L Albumin 2.9 L Lipase Urine Color Urine Appearance Urine pH Ur Specific [place] Urine Protein Urine Glucose (UA) Urine Ketones Urine Blood Urine Nitrite Ur Leukocyte Esterase Urine RBC Urine WBC Ur Squamous Epith Cells Amorphous Sediment Urine Bacteria Hyaline Casts Granular Casts Urine Mucus Stool Occult Blood Ethyl Alcohol COVID-19 ([facility]) COVID-19 Clin Com Hep Bs Antigen Hep Bs Antibody Hep B Core Total Ab Hepatitis C Ab (EIA) 05/28/21 05/28/21 07:13 10:51 WBC RBC Hgb Hct MCV MCH MCHC RDW Plt Count MPV Immature Gran % (Auto) Neut % (Auto) Lymph % (Auto) [place] % (Auto) Eos % (Auto) Baso % (Auto) Lymph # (Auto) [place] # (Auto) Eos # (Auto) Baso # (Auto) Abs Immat Gran (auto) Absolute Neuts (auto) Absolute Nucleated RBC Nucleated RBC % (auto) PT INR Sodium Potassium Chloride Carbon Dioxide Anion Gap BUN Creatinine Estim Creat Clear Calc Estimated GFR POC Glucose 105 122 H Random Glucose Calcium Magnesium Total Bilirubin Direct Bilirubin AST ALT Alkaline Phosphatase Total Protein Albumin Lipase Urine Color Urine Appearance Urine pH Ur Specific [place] Urine Protein Urine Glucose (UA) Urine Ketones Urine Blood Urine Nitrite Ur Leukocyte Esterase Urine RBC Urine WBC Ur Squamous Epith Cells Amorphous Sediment Urine Bacteria Hyaline Casts Granular Casts Urine Mucus Stool Occult Blood Ethyl Alcohol COVID-19 ([facility]) COVID-19 Clin Com Hep Bs Antigen Hep Bs Antibody Hep B Core Total Ab Hepatitis C Ab (EIA) Airway Mallampati Class: II TM Dist: >3cm Neck ROM: Full Loose/Missing/Broken Teeth: Yes, Upper and Lower Heart: RRR Lungs: CTA Assessment and Plan Assessment Anesthesia Assessment: Anesthesia Plan Discussed and Chart Reviewed Final Anesthetic Review History of Problems with Anesthesia: No NPO: Yes ASA Class: III Final Preanesthetic Review: Meds/Allgs Chart Reviewed, Consent Obtained/Reviewed and Anes Risks/Benef Reviewed Patient Risk: Intermediate Procedure Risk: Intermediate Anesthetic Plan Anesthetic Plan: MAC: Disposition: Standard PACU
--- NOTE | 2021-05-28 12:49 | MHC.SHP ---
Pre-Procedural Eval Section A Date of Service: 05/28/21 The patient is an INPATIENT: Yes Changes since office visit: Yes New Medical Problems, Yes Changes in Medication and Yes Patient answered all questions; No Cold of Flu in the past 2 weeks The History & Physical has been completed within 30 days and I have reviewed it.: Yes Section B Chief Complaint: rectal bleeding, electrolyte abnormalities Allergies: Allergies Allergy/AdvReac Type Severity Reaction Status Date / Time niacin [NIACIN] AdvReac Mild RED FLUSH, Verified 05/04/21 15:02 SHAKING Plan Diagnosis/Plan: Change (Proceed with EGD for evaluation of nausea and Colon for rectal bleeding) I have reviewed the history and physical and performed a pertinent physical examination on my patient. No changes have occurred unless specified.
--- NOTE | 2021-05-28 12:54 | PM.OP ---
Brief Operative Note Date of Service: 05/28/21 Pre-op diagnosis: Hematochezia Post-op diagnosis: other (GERD, hiatal hernia, gastritis, Gastric nodules) Procedure: FLEXIBLE TRANSORAL UPPER GASTROINTESTINAL ENDOSCOPY WITH BIOPSIES AND COLONOSCOPY TILL CECUM WITH BIOPSIES AND SNARE POLYPECTOMY UPPER ENDOSCOPY Consent: Indications for the procedure and potential complications of bleeding, perforation, reaction to medications and missed diagnosis were discussed with the patient and informed consent was obtained. Instrument: Olympus GIF H 190 mid size upper endoscope Monitoring: Vital signs and clinical assessment, continuous EKG monitoring, Pulse oximetry, Carbon Dioxide monitoring and blood pressure monitoring were done throughout the procedure. Procedure: The patient was placed in the left lateral decubitis position and pre-procedure medications were administered and a bite block was placed. The endoscope was inserted into the mouth and advanced under direct vision to the third part of duodenum. A careful inspection was made as the upper endoscope was withdrawn including a retroflexed examination of the proximal stomach; Findings and interventions are described below. Findings: Larynx: Normal Esophagus: GE junction at 38 cms, small hiatal hernia 38 to 40 cms. ? 1 cms island of possible Hernandez's - biopsied. Stomach: Moderate diffuse gastric erythema with prominent gastric folds - biopsied. Two 12-15 mm benign appearing nodules in the antrum - biopsied. Grade 2 flap valve on retroflexed examination of the cardia. Duodenum: Normal bulb and descending duodenum Intervention: Biopsies as noted above COLONOSCOPY PROCEDURE NOTE Consent: Indications for the procedure and potential complications of bleeding, perforation, reaction to medications and missed diagnosis were discussed with the patient and informed consent was obtained. Instrument: Olympus PCF H 190 L variable stiffness pediatric colonoscope Monitoring: Vital signs and clinical assessment, intermittent blood pressure monitoring, continuous EKG monitoring, Pulse oximetry and Carbon Dioxide monitoring were done throughout the procedure. Colon withdrawl time was 21 minutes. Procedure: The patient was placed in the left lateral decubitis position and pre-procedure medications were administered. After a digital rectal examination of the ano-rectum, the video colonoscope was inserted into the rectum and advanced through the colon to the cecum. The colonoscope was slowly withdrawn in a retrograde panoramic fashion and the colon mucosa was carefully examined including a retroflexed view of the rectum. Findings and interventions are described below. Procedure Difficulty: : Without difficulty. There was excessive spasm in the colon Findings: Terminal Ileum: Not evaluated Cecum: Normal Ascending Colon: Patchy erythema in the rt colon - biopsies obtained Transverse Colon: A 5 mm sessile polyp removed with a cold bx. Scattered diverticulosis Descending Colon: Scattered diverticulosis Sigmoid Colon: Two 8 to 10 mm sessile polyps removed with a cold snare Moderate diverticulosis Rectum: Normal Ano-rectum: Large internal hemorrhoids with stigmata of recent bleeding. Colon preparation: Good after some irrigation Impression and Post Procedure Diagnosis: Endoscopy Findings: ESOPHAGUS: GE junction at 38 cms, small hiatal hernia 38 to 40 cms. ? 1 cms island of possible Hernandez's - biopsied. STOMACH: Moderate diffuse gastric erythema with prominent gastric folds - biopsied. Two 12-15 mm benign appearing nodules in the antrum - biopsied. Colonoscopy Findings: Three small to medium sized polyps removed Moderate diverticulosis seen in the transverse and left colon Large internal hemorrhoids with stigmata of recent bleeding on retroflexed exam. Plan: Letter will be sent to the patient with biopsy results. Patient has an appointment on 10/08/21 in the [facility] with Ceci Ceballos FNP-BC. Repeat Colonoscopy interval based on path results - in 3 years if polyps are adenomatous. Above findings were reviewed with the patient and colon polyps and diverticulosis hemorrhoids handouts were given in the discharge area Surgical consult for band ligation of hemorrhoids - patient was discussed with Dr. Owens (Surgery) Surgeon: Ezio Loyola MD Anesthesia: MAC (Dr Guerrero) Was an Hardening Machine Operator Helper used for this Procedure?: Yes Hardening Machine Operator Helper: Karen Diane Estimated blood loss (mL): 0 Pathology: other (A. gastric antrum bxs, R/O H. pylori B. gastric antrum nodules bxs C. gastric fold bxs D. distal esophagus bxs E. right colon bxs, R/O microscopic colitis F. transverse colon ) Condition: stable Disposition: PACU
--- NOTE | 2021-05-28 12:55 | P.OP_ITS ---
Operative Note Operative Note Date of Service: 05/28/21 Narrative: Pre-op diagnosis: Hematochezia, nausea Post-op diagnosis:?other (GERD, hiatal hernia, gastritis, Gastric nodules) Procedure: FLEXIBLE TRANSORAL UPPER GASTROINTESTINAL ENDOSCOPY WITH BIOPSIES AND COLONOSCOPY TILL CECUM WITH BIOPSIES AND SNARE POLYPECTOMY UPPER ENDOSCOPY Consent:?Indications for the procedure and potential complications of bleeding, perforation, reaction to medications and missed diagnosis were discussed with the patient and informed consent was obtained. Instrument:?Olympus GIF H 190 mid size upper endoscope Monitoring: Vital signs and clinical assessment, continuous EKG monitoring, Pulse oximetry, Carbon Dioxide monitoring and blood pressure monitoring were done throughout the procedure. Procedure:?The patient was placed in the left lateral decubitis position and pre-procedure medications were administered and a bite block was placed. The endoscope was inserted into the mouth and advanced under direct vision to the third part of duodenum. A careful inspection was made as the upper endoscope was withdrawn including a retroflexed examination of the proximal stomach; Findings and interventions are described below. Findings: Larynx:? Normal Esophagus:?GE junction at 38 cms, small hiatal hernia 38 to 40 cms. ? 1 cms island of possible Hernandez's - biopsied. Stomach:?Moderate diffuse gastric erythema with prominent gastric folds - biopsied. Two 12-15 mm benign appearing nodules in the antrum - biopsied. Grade 2 flap valve on retroflexed examination of the cardia. Duodenum:?Normal bulb and descending duodenum Intervention:?Biopsies as noted above COLONOSCOPY PROCEDURE NOTE Consent:?Indications for the procedure and potential complications of bleeding, perforation, reaction to medications and missed diagnosis were discussed with the patient and informed consent was obtained. Instrument:?Olympus PCF H 190 L variable stiffness pediatric colonoscope Monitoring:?Vital signs and clinical assessment, intermittent blood pressure monitoring, continuous EKG monitoring, Pulse oximetry and Carbon Dioxide monitoring were done throughout the procedure. Colon withdrawl time was 21 minutes. Procedure:?The patient was placed in the left lateral decubitis position and pre-procedure medications were administered. After a digital rectal examination of the ano-rectum, the video colonoscope was inserted into the rectum and advanced through the colon to the cecum. The colonoscope was slowly withdrawn in a retrograde panoramic fashion and the colon mucosa was carefully examined including a retroflexed view of the rectum. Findings and interventions are described below. Procedure Difficulty:?: Without difficulty.? There was excessive spasm in the colon Findings: Terminal Ileum: Not evaluated Cecum:? Normal Ascending Colon:??Patchy erythema in the rt colon - biopsies obtained Transverse Colon:??A 5 mm sessile polyp removed with a cold bx. Scattered diverticulosis Descending Colon:? Scattered diverticulosis Sigmoid Colon:??Two 8 to 10 mm sessile polyps removed with a cold snare Moderate diverticulosis Rectum:??Normal Ano-rectum:??Large internal hemorrhoids with stigmata of recent bleeding. Colon preparation:? Good after some irrigation Impression and Post Procedure Diagnosis: Endoscopy Findings: ESOPHAGUS: GE junction at 38 cms, small hiatal hernia 38 to 40 cms. ? 1 cms island of possible Hernandez's - biopsied. STOMACH: Moderate diffuse gastric erythema with prominent gastric folds - biopsied. Two 12-15 mm benign appearing nodules in the antrum - biopsied. Colonoscopy Findings: Three small to medium sized polyps removed Moderate diverticulosis seen in the transverse and left colon Large internal hemorrhoids with stigmata of recent bleeding on retroflexed exam. Plan: Letter will be sent to the patient with biopsy results. Patient has an appointment on 10/08/21 in the GI Clinic with Ceci Ceballos FNP- BC. Repeat Colonoscopy interval based on path results - in 3 years if polyps are adenomatous. Above findings were reviewed with the patient and colon polyps, diverticulosis and hemorrhoids handouts were given in the discharge area Surgical consult for band ligation of hemorrhoids - patient was discussed with Dr. Owens (Surgery) Surgeon: Ezio Loyola MD Anesthesia:?MAC (Dr Guerrero) Was an Textile Engineer used for this Procedure?:?Yes Textile Engineer:?Karen Diane Estimated blood loss (mL):?0 Pathology:?other (A. gastric antrum bxs, R/O H. pylori? B. gastric antrum nodules bxs? C. gastric fold bxs? D. distal esophagus bxs? E. right colon bxs, R/O microscopic colitis? F. transverse colon ) Condition:?stable Disposition:?PACU
--- NOTE | 2021-05-28 15:20 | HO.PM.IMPN ---
Subjective Subjective Date of Service: 05/28/21 Review of Systems Follow up GI bleed Feeling ok, no pain no bleeding colonoscopy today Physical Exam Vital Signs: Vital Signs: Last Vital Signs Temp 99 F 05/28/21 15:15 Pulse 66 05/28/21 15:15 Resp 16 05/28/21 15:15 BP 110/66 05/28/21 15:15 Pulse Ox 96 05/28/21 15:15 BMI result Body Mass Index 26.4 Appearing in no acute distress lung sounds are clear to auscultation heart regular rate rhythm, clear S1, S2 positive bowel sounds, abdomen is soft, nontender neuro patient is alert x3, no focal deficits Objective Data Active Medications Acetaminophen (Acetaminophen 325 Mg Tablet) 650 mg PO Q6H PRN PRN Reason: Pain, Mild (Pain Scale 1-3) Last Admin: 05/26/21 20:50 Dose: 650 mg Documented by: BRITTANY Dextrose (Dextrose 50 % 25 Gm/50 Ml Syringe) 25 gm IVPUSH Q15M PRN; Protocol PRN Reason: per Hypoglycemia Standing Ord. Escitalopram Oxalate (Escitalopram Oxalate 20 Mg Tablet) 20 mg PO DAILY [facility] Last Admin: 05/28/21 09:25 Dose: 20 mg Documented by: LORENA Folic Acid (Folic Acid 1 Mg Tablet) 1 mg PO DAILY [facility] Last Admin: 05/28/21 09:24 Dose: 1 mg Documented by: LORENA Gabapentin (Gabapentin 300 Mg Capsule) 300 mg PO TID [facility] Last Admin: 05/28/21 09:25 Dose: 300 mg Documented by: LORENA Glucose (Glucose Gel 15 Gm Gel..Gram.) 15 gm PO Q15M PRN; Protocol PRN Reason: per Hypoglycemia Standing Ord. Hydrocortisone (Hydrocortisone 2.5 % Rectal Cr 30 Gm Tube) 1 appl MA QID PRN PRN Reason: hemorrhoids Lactated Ringer's (Lr) 1,000 mls @ 100 mls/hr IVCONT .Q10H [facility] Last Admin: 05/28/21 09:24 Dose: 100 mls/hr Documented by: LORENA Insulin Human Lispro (Insulin Lispro 100 Unit/Ml 3 Ml Vial) 0 unit SUBCUT QIDACHS [facility]; Protocol Last Admin: 05/28/21 11:21 Dose: Not Given Documented by: LORENA Non-Admin Reason: No Insulin Coverage Magnesium Oxide (Magnesium Oxide 400 Mg Tablet) 400 mg PO DAILY [facility] Last Admin: 05/28/21 09:25 Dose: 400 mg Documented by: LORENA Medication (No Benzodiazepines) 1 each MISCELLANE DAILY [facility] Nicotine Polacrilex (Nicotine Polacrilex 2 Mg Gum) 2 mg BUCCAL Q2H PRN PRN Reason: Nicotine Cravings Omeprazole (Omeprazole 20 Mg Capsule.Dr) 20 mg PO DAILY@0630 [facility] Last Admin: 05/28/21 06:16 Dose: 20 mg Documented by: ULISES Pharmacy Consult (Consult Rx Perform Med Rec) 1 each MISCELLANE ONCE PRN PRN Reason: Consult order Phenobarbital (Phenobarbital 30 Mg Tablet) 60 mg PO BID [facility] Stop: 05/28/21 21:01 Last Admin: 05/28/21 09:24 Dose: 60 mg Documented by: LORENA Phenobarbital (Phenobarbital 30 Mg Tablet) 30 mg PO BID [facility] Stop: 05/30/21 21:01 Phenobarbital (Phenobarbital 15 Mg Tablet) 15 mg PO DAILY [facility] Stop: 06/01/21 09:01 Pyridoxine HCl (Pyridoxine Hcl (Vitamin B6) 50 Mg Tablet) 50 mg PO DAILY [facility] Last Admin: 05/28/21 09:24 Dose: 50 mg Documented by: LORENA Senna (Sennosides 8.6 Mg Tablet) 8.6 mg PO BEDTIME [facility] Last Admin: 05/27/21 21:19 Dose: Not Given Documented by: ULISES Non-Admin Reason: pt on colonoscopy prep at this time Sodium Chloride (0.9 % Sodium Chloride Flush 3 Ml Syringe) 3 ml IVFLUSH QSHIFT [facility] Last Admin: 05/28/21 09:23 Dose: Not Given Documented by: LORENA Non-Admin Reason: IV Running Thiamine HCl (Thiamine Hcl 100 Mg Tablet) 100 mg PO DAILY [facility] Last Admin: 05/28/21 09:24 Dose: 100 mg Documented by: LORENA Labs CBC & Chem 7: 05/28/21 05:11 05/28/21 05:11 Labs: Laboratory Results - last 24 hr 05/26/21 05/27/21 05/27/21 11:58 18:16 20:24 MCV MCH MCHC RDW Plt Count MPV Absolute Nucleated RBC Nucleated RBC % (auto) Anion Gap Estim Creat Clear Calc Estimated GFR POC Glucose 108 139 H Random Glucose Calcium Magnesium Total Bilirubin Direct Bilirubin AST ALT Alkaline Phosphatase Total Protein Albumin Hep Bs Antigen Negative Hep Bs Antibody NONREACTIVE Hep B Core Total Ab Nonreactive Hepatitis C Ab (EIA) Nonreactive 05/28/21 05/28/21 05/28/21 05:11 05:11 07:13 MCV 99.0 H MCH 33.6 H MCHC 33.9 RDW 13.6 Plt Count 107 L MPV 11.1 Absolute Nucleated RBC 0.000 Nucleated RBC % (auto) 0.0 Anion Gap 17 Estim Creat Clear Calc 101.9 Estimated GFR > 60 POC Glucose 105 Random Glucose 106 Calcium 6.8 L D Magnesium 1.3 L* Total Bilirubin 0.8 Direct Bilirubin 0.5 AST 109 H ALT 63 H Alkaline Phosphatase 124 H Total Protein 4.9 L Albumin 2.9 L Hep Bs Antigen Hep Bs Antibody Hep B Core Total Ab Hepatitis C Ab (EIA) 05/28/21 10:51 MCV MCH MCHC RDW Plt Count MPV Absolute Nucleated RBC Nucleated RBC % (auto) Anion Gap Estim Creat Clear Calc Estimated GFR POC Glucose 122 H Random Glucose Calcium Magnesium Total Bilirubin Direct Bilirubin AST ALT Alkaline Phosphatase Total Protein Albumin Hep Bs Antigen Hep Bs Antibody Hep B Core Total Ab Hepatitis C Ab (EIA) Assessment and Plan (1) BRBPR (bright red blood per rectum): Status: Acute (2) Hypomagnesemia: Status: Acute (3) Transaminitis: Status: Acute (4) History of alcohol abuse: Status: Acute Plan This is a 65-year-old male with history alcohol use disorder diabetes, hypertension hepatic steatosis, hemorrhoids who presents the emergency department bright red blood per rectum Acute GI bleeding Suspect lower GI source hemorrhoids or diverticular bleed. Colonoscopy today showed, colon polyp status post polypectomy, large internal hemorrhoids with recent bleeding. Recommend surgical consult for band ligation of hemorrhoids. Continue PPI Hypo magnesemia/hypokalemia continue aggressive replacement and close monitoring will give additional 2 gm magnesium continue home magnesium supplementation Follow levels daily Alcohol use disorder with history of withdrawal At risk for alcohol withdrawal continue phenobarbital protocol continue home thiamine, folate supplementation care team evaluation, outpatient referrals GUILHERME. resolved creatinine trending down Elevated LFTs Likely secondary to hepatic steatosis/alcohol use Hepatitis panel neg LFTs trending down Thrombocytopenia Likely secondary to alcohol use follow CBC Tobacco dependence Smoking cessation advised -NRT DM home medications on hold -SSI, POCs HTN BP soft, GUILHERME -hold Lisinopril HLD hold statin in light of transaminitis Mood continue lexapro gerd continue po PPI DVT ppx - mechanical devices, no chemoprophylaxis due to GI bleeding Code status - Full code HCP - endorses his Radha as HCP Attending - Dr. Snell Quality Stroke Does the patient have a stroke diagnosis?: No VTE Prior VTE?: No VTE Risk Level:: Medical - moderate - high VTE Device Contraindication: N/A - Device Ordered VTE Drug Contraindication: Treatment Not Indicated
[2021-05-28] MEDS: Magnesium Sulfate/H2O 2 GM/50 ML PIGGYBACK IV (15:47)
[2021-05-28] MEDS: Potassium Chloride ER 20 MEQ TAB.ER.PRT 40 MEQ PO (15:47)
[2021-05-28] MEDS: 0.9 % Sodium Chloride Flush 3 ML SYRINGE IVFLUSH (15:48)
[2021-05-28 16:31] LABS: Glucose, Whole Blood 117 mg/dL (60-115)
--- NOTE | 2021-05-28 17:16 | P.CONGS_ITS ---
History of Present Illness Consult details Consult date: 05/28/21 Narrative: 65M with depression, hx of ETOH abuse, DM, HTN, admitted last May 26 for passage of bright blood per rectum. This had been going on for about 3 days prior to admission. He stated then that this would often fill the toliet bowel. He Underwent a colonoscopy today which showed small polyps and large hemorrhoids which were deemed to be the likely source of his bleeding. I was therefore consulted for hemorrhoidectomy in view of his heavy bleeding with his hemorrhoids. Review of Systems Constitutional: Constitutional: Denies chills and Denies fever(s) Cardiovascular: Cardiovascular: Denies chest pain, Denies dyspnea and Denies dyspnea on exertion Respiratory: Respiratory: Denies cough, Denies dyspnea and Denies dyspnea on exertion Gastrointestinal: Gastrointestinal: Reports hematochezia, Denies change in bowel habits and Denies constipation Genitourinary: Genitourinary: Denies hematuria and Denies difficulty urinating Musculoskeletal: Musculoskeletal: Denies back pain and Denies limited range of motion Neurologic: Denies focal weakness and Denies convulsions Psychiatric: Psychiatric: Denies depression and Denies mood swings [facility] Past Medical History Medical History (Updated 05/28/21 @ 17:20 by Kris Owens MD) Alcohol abuse Anxiety Bleeding hemorrhoids Depression Diabetes Diabetes type 2, controlled Diabetes type 2, uncontrolled Diabetic polyneuropathy associated with type 2 diabetes mellitus Hemorrhoids without complication Hypertension Neuropathy PVD (peripheral vascular disease) Functional capacity: independent ambulation Family History Family History Mother No problems noted. Father No problems noted. Surgical History Surgical History H/O colonoscopy Social History Social History Household Members: Family Housing: House Do you presently have visiting nurse or other home services: No Alcohol intake: current Alcohol intake frequency: 0-2 drinks per day Patient Tobacco Use Status: Current everyday Tobacco user Tobacco use type: Cigarette Cigarettes Per Day: 4 e-Cigarette/Vaping Use: Never Used Second Hand Smoke Exposure: No service: No Current occupational status: retired Cognitive needs: No Hearing needs: No Vision needs: No Meds Allergies Allergy/AdvReac Type Severity Reaction Status Date / Time niacin [NIACIN] AdvReac Mild RED FLUSH, Verified 05/04/21 15:02 SHAKING Active Medications: Current Medications Acetaminophen (Acetaminophen 325 Mg Tablet) 650 mg PO Q6H PRN PRN Reason: Pain, Mild (Pain Scale 1-3) Last Admin: 05/26/21 20:50 Dose: 650 mg Documented by: Dextrose (Dextrose 50 % 25 Gm/50 Ml Syringe) 25 gm IVPUSH Q15M PRN; Protocol PRN Reason: per Hypoglycemia Standing Ord. Escitalopram Oxalate (Escitalopram Oxalate 20 Mg Tablet) 20 mg PO DAILY [facility] Last Admin: 05/28/21 09:25 Dose: 20 mg Documented by: Folic Acid (Folic Acid 1 Mg Tablet) 1 mg PO DAILY [facility] Last Admin: 05/28/21 09:24 Dose: 1 mg Documented by: Gabapentin (Gabapentin 300 Mg Capsule) 300 mg PO TID [facility] Last Admin: 05/28/21 15:47 Dose: 300 mg Documented by: Glucose (Glucose Gel 15 Gm Gel..Gram.) 15 gm PO Q15M PRN; Protocol PRN Reason: per Hypoglycemia Standing Ord. Hydrocortisone (Hydrocortisone 2.5 % Rectal Cr 30 Gm Tube) 1 appl [place] QID PRN PRN Reason: hemorrhoids Lactated Ringer's (Lr) 1,000 mls @ 100 mls/hr IVCONT .Q10H [facility] Last Infusion: 05/28/21 15:50 Dose: 0 mls/hr Documented by: Magnesium Sulfate (Magnesium Sulfate/H2o) 2 gm in 50 mls @ 25 mls/hr IV ONCE ONE Stop: 05/28/21 17:20 Last Admin: 05/28/21 15:47 Dose: 25 mls/hr Documented by: Insulin Human Lispro (Insulin Lispro 100 Unit/Ml 3 Ml Vial) 0 unit SUBCUT QIDACHS [facility]; Protocol Last Admin: 05/28/21 16:33 Dose: Not Given Documented by: Magnesium Oxide (Magnesium Oxide 400 Mg Tablet) 400 mg PO DAILY [facility] Last Admin: 05/28/21 09:25 Dose: 400 mg Documented by: Medication (No Benzodiazepines) 1 each MISCELLANE DAILY [facility] Nicotine Polacrilex (Nicotine Polacrilex 2 Mg Gum) 2 mg BUCCAL Q2H PRN PRN Reason: Nicotine Cravings Omeprazole (Omeprazole 20 Mg Capsule.Dr) 20 mg PO DAILY@0630 [facility] Last Admin: 05/28/21 06:16 Dose: 20 mg Documented by: Pharmacy Consult (Consult Rx Perform Med Rec) 1 each MISCELLANE ONCE PRN PRN Reason: Consult order Phenobarbital (Phenobarbital 30 Mg Tablet) 60 mg PO BID [facility] Stop: 05/28/21 21:01 Last Admin: 05/28/21 09:24 Dose: 60 mg Documented by: Phenobarbital (Phenobarbital 30 Mg Tablet) 30 mg PO BID [facility] Stop: 05/30/21 21:01 Phenobarbital (Phenobarbital 15 Mg Tablet) 15 mg PO DAILY [facility] Stop: 06/01/21 09:01 Pyridoxine HCl (Pyridoxine Hcl (Vitamin B6) 50 Mg Tablet) 50 mg PO DAILY [facility] Last Admin: 05/28/21 09:24 Dose: 50 mg Documented by: Senna (Sennosides 8.6 Mg Tablet) 8.6 mg PO BEDTIME [facility] Last Admin: 05/27/21 21:19 Dose: Not Given Documented by: Sodium Chloride (0.9 % Sodium Chloride Flush 3 Ml Syringe) 3 ml IVFLUSH QSHIFT [facility] Last Admin: 05/28/21 15:48 Dose: 3 ml Documented by: Thiamine HCl (Thiamine Hcl 100 Mg Tablet) 100 mg PO DAILY [facility] Last Admin: 05/28/21 09:24 Dose: 100 mg Documented by: Home Medications Medication Instructions Recorded Confirmed Last Taken Type atorvastatin 80 mg tablet 1 tab PO DAILY 06/07/20 05/26/21 06/07/20 History lansoprazole 30 mg capsule,delayed 1 cap PO DAILY 06/07/20 05/26/21 06/07/20 History release lisinopril 40 mg tablet 1 tab PO DAILY 06/07/20 05/26/21 06/07/20 History magnesium oxide 400 mg (241.3 mg 400 mg PO DAILY 11/28/20 05/26/21 Unknown History magnesium) tablet pyridoxine (vitamin B6) 50 mg 50 mg PO DAILY 11/28/20 05/26/21 Unknown History tablet Physical Exam Vital Signs: Vital Signs: Last Vital Signs Temp 99 F 05/28/21 15:15 Pulse 66 05/28/21 15:15 Resp 16 05/28/21 15:15 BP 110/66 05/28/21 15:15 Pulse Ox 96 05/28/21 15:15 BMI result Body Mass Index 26.4 Const: General: comfortable and no acute distress Orientation/consciousness: patient oriented x3 Neck: Neck: Yes no lymphadenopathy Resp: Auscultation: clear to auscultation bilaterally Cardio: Rhythm: regular rhythm GI: Other: rectal exam - bulky hemorrhoids, external, internal on left, no bleeding at this time; digital exam and anoscopy deferred in view of earlier colonoscopy Palpation (GI): Soft to palpation, nontender and no guarding Neuro: General: patient oriented x3 Results Labs Result diagrams: 05/28/21 05:11 05/30/21 06:30 Labs: Abnormal lab results 05/27/21 05/28/21 05/28/21 Range/Units 20:24 05:11 05:11 WBC 4.4 L (4.8-10.8) X10*3/uL RBC 2.89 L (4.60-5.80) X10*6/uL Hgb 9.7 L (14.0-18.0) g/dl Hct 28.6 L (42.0-52.0) % MCV 99.0 H (80.0-98.0) fL MCH 33.6 H (27.0-33.0) pg Plt Count 107 L (160-400) X10*3/uL Potassium 3.1 L (3.3-5.1) mmol/L POC Glucose 139 H (60-115) mg/dL Calcium 6.8 L D (8.4-10.2) mg/dL Magnesium 1.3 L* (1.6-2.6) mg/dL AST 109 H (5-37) U/L ALT 63 H (0-40) U/L Alkaline Phosphatase 124 H (39-117) U/L Total Protein 4.9 L (6.5-8.0) g/dL Albumin 2.9 L (3.5-5.0) g/dL 05/28/21 05/28/21 Range/Units 10:51 16:19 WBC (4.8-10.8) X10*3/uL RBC (4.60-5.80) X10*6/uL Hgb (14.0-18.0) g/dl Hct (42.0-52.0) % MCV (80.0-98.0) fL MCH (27.0-33.0) pg Plt Count (160-400) X10*3/uL Potassium (3.3-5.1) mmol/L POC Glucose 122 H 117 H (60-115) mg/dL Calcium (8.4-10.2) mg/dL Magnesium (1.6-2.6) mg/dL AST (5-37) U/L ALT (0-40) U/L Alkaline Phosphatase (39-117) U/L Total Protein (6.5-8.0) g/dL Albumin (3.5-5.0) g/dL Short CBC 05/28/21 Range/Units 05:11 WBC 4.4 L (4.8-10.8) X10*3/uL Hgb 9.7 L (14.0-18.0) g/dl Hct 28.6 L (42.0-52.0) % Plt Count 107 L (160-400) X10*3/uL BMP 05/28/21 05:11 Sodium 140 Potassium 3.1 L Chloride 99 Carbon Dioxide 27 BUN 11 Creatinine 0.79 Calcium 6.8 L D Liver Function 05/28/21 Range/Units 05:11 Total Bilirubin 0.8 (0.0-1.0) mg/dL Direct Bilirubin 0.5 (0.0-0.5) mg/dL AST 109 H (5-37) U/L ALT 63 H (0-40) U/L Alkaline Phosphatase 124 H (39-117) U/L Albumin 2.9 L (3.5-5.0) g/dL Urine 05/26/21 Range/Units 12:50 Urine Color YELLOW Urine Appearance CLEAR Urine pH 5.5 (5.0-8.0) Ur Specific [place] 1.025 (1.005-1.025) Urine Protein 1+ H (NEG-TRACE) MG/DL Urine Glucose (UA) >=1000 H (NEG) MG/DL All other labs normal. Assessment and Plan (1) Bleeding hemorrhoids: Status: Acute Plan He has had heavy rectal bleeding of bright blood per rectum, with an outlet source from his hemorrhoids. He wants to proceed with hemorrhoidectomy in view of this. I explained to him the technique of exam under anesthesia and hemorrhoidectomy. I reviewed the risks including but not limited to bleeding, infections, postop pain, poor healing, as well as the benefits and alternatives. He wants to proceed. We will try to do the procedure in the OR tomorrow. His INR is normal. His bilirubin is also within normal despite his hx of ETOH abuse. Procedures Date of Service Date of Service: 05/28/21
[2021-05-28 20:34] LABS: Glucose, Whole Blood 143 mg/dL (60-115)
[2021-05-29] VITALS (15 sets, daily range): BP systolic 92–132; BP diastolic 45–73; PULSE 63–96; RESP 14–19; TEMP 35.7–37.5; O2SAT 92–98
[2021-05-29] MEDS: Lactated Ringers 1,000 ML 100 ML IVCONT (02:19)
[2021-05-29] MEDS: Omeprazole 20 MG CAPSULE.DR PO (05:27)
[2021-05-29 07:41] LABS: Glucose, Whole Blood 135 mg/dL (60-115)
[2021-05-29] MEDS: 0.9 % Sodium Chloride Flush 3 ML SYRINGE IVFLUSH ×2 (08:52→20:54)
[2021-05-29] MEDS: Escitalopram Oxalate 20 MG TABLET PO (08:52)
[2021-05-29] MEDS: Gabapentin 300 MG CAPSULE PO ×2 (08:52→20:52)
[2021-05-29] MEDS: Folic Acid 1 MG TABLET PO (08:52)
[2021-05-29] MEDS: Magnesium Oxide 400 MG TABLET PO (08:52)
[2021-05-29] MEDS: Pyridoxine HCl (Vitamin B6) 50 MG TABLET PO (08:52)
[2021-05-29] MEDS: PHENobarbitaL 30 MG TABLET PO ×2 (08:52→20:52)
[2021-05-29] MEDS: Thiamine HCL 100 MG TABLET PO (08:53)
--- NOTE | 2021-05-29 10:47 | HO.POSTANES ---
Post Anesthesia Evaluation Post Anesthesia Evaluation Vital Signs: Vital Signs Temp Pulse Resp BP Pulse Ox 05/29/21 07:45 96.3 F L 74 16 119/69 95 05/29/21 03:14 98.9 F 71 19 117/69 92 05/29/21 00:00 98.3 F 75 18 119/45 L 96 Anesthesia: Monitored Mental Status: Awake Pain Control: Satisfactory Nausea/Vomiting: None Hydration: Adequate Anesthesia-Related Issues: No Anes. Related Issues
--- NOTE | 2021-05-29 11:01 | HO.PM.IMPN ---
Subjective Subjective Date of Service: 05/29/21 Review of Systems Follow up GI bleed Feeling ok, no pain no bleeding hemorrhoid ligation today Physical Exam Vital Signs: Vital Signs: Last Vital Signs Temp 96.3 F L 05/29/21 07:45 Pulse 74 05/29/21 07:45 Resp 16 05/29/21 07:45 BP 119/69 05/29/21 07:45 Pulse Ox 95 05/29/21 07:45 BMI result Body Mass Index 26.4 Appearing in no acute distress LSCTA heart regular rate rhythm, clear S1, S2 positive bowel sounds, abdomen is soft, nontender neuro patient is alert x3, no focal deficits Objective Data Active Medications Acetaminophen (Acetaminophen 325 Mg Tablet) 650 mg PO Q6H PRN PRN Reason: Pain, Mild (Pain Scale 1-3) Last Admin: 05/26/21 20:50 Dose: 650 mg Documented by: BRITTANY Dextrose (Dextrose 50 % 25 Gm/50 Ml Syringe) 25 gm IVPUSH Q15M PRN; Protocol PRN Reason: per Hypoglycemia Standing Ord. Escitalopram Oxalate (Escitalopram Oxalate 20 Mg Tablet) 20 mg PO DAILY [facility] Last Admin: 05/29/21 08:52 Dose: 20 mg Documented by: REJI Folic Acid (Folic Acid 1 Mg Tablet) 1 mg PO DAILY [facility] Last Admin: 05/29/21 08:52 Dose: 1 mg Documented by: REJI Gabapentin (Gabapentin 300 Mg Capsule) 300 mg PO TID [facility] Last Admin: 05/29/21 08:52 Dose: 300 mg Documented by: REJI Glucose (Glucose Gel 15 Gm Gel..Gram.) 15 gm PO Q15M PRN; Protocol PRN Reason: per Hypoglycemia Standing Ord. Hydrocortisone (Hydrocortisone 2.5 % Rectal Cr 30 Gm Tube) 1 appl AL QID PRN PRN Reason: hemorrhoids Lactated Ringer's (Lr) 1,000 mls @ 100 mls/hr IVCONT .Q10H [facility] Last Admin: 05/29/21 02:19 Dose: 100 mls/hr Documented by: ULISES Insulin Human Lispro (Insulin Lispro 100 Unit/Ml 3 Ml Vial) 0 unit SUBCUT QIDACHS [facility]; Protocol Last Admin: 05/29/21 07:45 Dose: Not Given Documented by: REJI Non-Admin Reason: No Insulin Coverage Magnesium Oxide (Magnesium Oxide 400 Mg Tablet) 400 mg PO DAILY [facility] Last Admin: 05/29/21 08:52 Dose: 400 mg Documented by: REJI Medication (No Benzodiazepines) 1 each MISCELLANE DAILY [facility] Nicotine Polacrilex (Nicotine Polacrilex 2 Mg Gum) 2 mg BUCCAL Q2H PRN PRN Reason: Nicotine Cravings Omeprazole (Omeprazole 20 Mg Capsule.Dr) 20 mg PO DAILY@0630 [facility] Last Admin: 05/29/21 05:27 Dose: 20 mg Documented by: ULISES Pharmacy Consult (Consult Rx Perform Med Rec) 1 each MISCELLANE ONCE PRN PRN Reason: Consult order Phenobarbital (Phenobarbital 30 Mg Tablet) 30 mg PO BID [facility] Stop: 05/30/21 21:01 Last Admin: 05/29/21 08:52 Dose: 30 mg Documented by: REJI Phenobarbital (Phenobarbital 15 Mg Tablet) 15 mg PO DAILY [facility] Stop: 06/01/21 09:01 Pyridoxine HCl (Pyridoxine Hcl (Vitamin B6) 50 Mg Tablet) 50 mg PO DAILY [facility] Last Admin: 05/29/21 08:52 Dose: 50 mg Documented by: REJI Senna (Sennosides 8.6 Mg Tablet) 8.6 mg PO BEDTIME [facility] Last Admin: 05/28/21 20:24 Dose: Not Given Documented by: ULISES Non-Admin Reason: Patient Refused Sodium Chloride (0.9 % Sodium Chloride Flush 3 Ml Syringe) 3 ml IVFLUSH QSHIFT [facility] Last Admin: 05/29/21 08:52 Dose: 3 ml Documented by: REJI Thiamine HCl (Thiamine Hcl 100 Mg Tablet) 100 mg PO DAILY [facility] Last Admin: 05/29/21 08:53 Dose: 100 mg Documented by: REJI Labs CBC & Chem 7: 05/28/21 05:11 05/29/21 11:28 Labs: Laboratory Results - last 24 hr 05/28/21 05/28/21 05/28/21 10:51 16:19 20:18 POC Glucose 122 H 117 H 143 H 05/29/21 07:13 POC Glucose 135 H Assessment and Plan (1) BRBPR (bright red blood per rectum): Status: Acute (2) Hypomagnesemia: Status: Acute (3) Transaminitis: Status: Acute (4) History of alcohol abuse: Status: Acute Plan This is a 65-year-old male with history alcohol use disorder diabetes, hypertension hepatic steatosis, hemorrhoids who presents the emergency department bright red blood per rectum Acute GI bleeding Colonoscopy showed, colon polyp status post polypectomy, large internal hemorrhoids with recent bleeding. Seen and evaluated by General surgery will take to OR for hemorrhoidal ligation today Continue PPI Hypo magnesemia/hypokalemia continue aggressive replacement and close monitoring will give additional 2 gm magnesium continue home magnesium supplementation Follow levels daily Alcohol use disorder with history of withdrawal At risk for alcohol withdrawal continue phenobarbital protocol continue home thiamine, folate supplementation care team evaluation, outpatient referrals GUILHERME. resolved creatinine trending down Elevated LFTs Likely secondary to hepatic steatosis/alcohol use Hepatitis panel neg LFTs trending down Thrombocytopenia Likely secondary to alcohol use follow CBC Tobacco dependence Smoking cessation advised -NRT DM home medications on hold -SSI, POCs HTN BP soft, GUILHERME -hold Lisinopril HLD hold statin in light of transaminitis Mood continue lexapro gerd continue po PPI DVT ppx - mechanical devices, no chemoprophylaxis due to GI bleeding Code status - Full code HCP - endorses his Radha as HCP Attending - Dr. Channing Murillo Stroke Does the patient have a stroke diagnosis?: No VTE Prior VTE?: No VTE Risk Level:: Medical - moderate - high VTE Device Contraindication: N/A - Device Ordered VTE Drug Contraindication: Treatment Not Indicated
[2021-05-29 11:16] LABS: Glucose, Whole Blood 139 mg/dL (60-115)
[2021-05-29 12:10] LABS: Anion Gap 13 (12-20); Blood Urea Nitrogen 7 mg/dL (9-16); Calcium 6.8 mg/dL (8.4-10.2); Carbon Dioxide 29 mmol/L (22-29); Chloride 101 mmol/L (96-108); Creatinine Clr Calc Pharmacy 108.8; Estimated Glomerular Filt Rate > 60; Glucose Random 132 mg/dL (60-115); Magnesium 1.3 mg/dL (1.6-2.6); Potassium 3.5 mmol/L (3.3-5.1); Sodium 139 mmol/L (135-145)
[2021-05-29] MEDS: Magnesium Sulfate/H2O 2 GM/50 ML PIGGYBACK IV (12:55)
--- NOTE | 2021-05-29 13:11 | P.CONAN_ITS ---
HPI - Anesthesia Eval Consult details Narrative: 65 M for Hemorrhoidectomy . Presented with rectal bleeding PMFSH Active Problems Active Problems: All Active Problems (Updated 05/28/21 @ 17:20 by Kris Owens MD) Bleeding hemorrhoids (Acute) BRBPR (bright red blood per rectum) (Acute) Hypomagnesemia (Acute) Transaminitis (Acute) Wheeze (Acute) Hemorrhoids without complication (Acute) Dry eye syndrome of both eyes (Acute) History of alcohol abuse (Acute) Diabetes mellitus with neuropathy (Acute) Essential hypertension (Acute) Hyperlipidemia (Acute) Colon polyps (Acute) Annual physical exam (Acute) Elevated transaminase level (Acute) Screening for colon cancer (Acute) Screening for prostate cancer (Acute) Diabetes type 2, uncontrolled (Acute) PVD (peripheral vascular disease) (Acute) Diabetic polyneuropathy associated with type 2 diabetes mellitus (Acute) Diabetes type 2, controlled (Acute) Past Medical History Medical History (Updated 05/28/21 @ 17:20 by Kris Owens MD) Alcohol abuse Anxiety Bleeding hemorrhoids Depression Diabetes Diabetes type 2, controlled Diabetes type 2, uncontrolled Diabetic polyneuropathy associated with type 2 diabetes mellitus Hemorrhoids without complication Hypertension Neuropathy PVD (peripheral vascular disease) Functional capacity: independent ambulation Family History Family History Mother No problems noted. Father No problems noted. Family history of problems with anesthesia: No Surgical History Surgical History H/O colonoscopy History of Problems with Anesthesia: No Social History Social History Household Members: Family Housing: House Do you presently have visiting nurse or other home services: No Alcohol intake: current Alcohol intake frequency: 0-2 drinks per day Patient Tobacco Use Status: Current everyday Tobacco user Tobacco use type: Cigarette Cigarettes Per Day: 4 e-Cigarette/Vaping Use: Never Used Second Hand Smoke Exposure: No service: No Current occupational status: retired Cognitive needs: No Hearing needs: No Vision needs: No Meds Allergies Allergy/AdvReac Type Severity Reaction Status Date / Time niacin [NIACIN] AdvReac Mild RED FLUSH, Verified 05/04/21 15:02 SHAKING Active Medications: Current Medications Acetaminophen (Acetaminophen 325 Mg Tablet) 650 mg PO Q6H PRN PRN Reason: Pain, Mild (Pain Scale 1-3) Last Admin: 05/26/21 20:50 Dose: 650 mg Documented by: Dextrose (Dextrose 50 % 25 Gm/50 Ml Syringe) 25 gm IVPUSH Q15M PRN; Protocol PRN Reason: per Hypoglycemia Standing Ord. Escitalopram Oxalate (Escitalopram Oxalate 20 Mg Tablet) 20 mg PO DAILY [facility] Last Admin: 05/29/21 08:52 Dose: 20 mg Documented by: Folic Acid (Folic Acid 1 Mg Tablet) 1 mg PO DAILY [facility] Last Admin: 05/29/21 08:52 Dose: 1 mg Documented by: Gabapentin (Gabapentin 300 Mg Capsule) 300 mg PO TID [facility] Last Admin: 05/29/21 08:52 Dose: 300 mg Documented by: Glucose (Glucose Gel 15 Gm Gel..Gram.) 15 gm PO Q15M PRN; Protocol PRN Reason: per Hypoglycemia Standing Ord. Hydrocortisone (Hydrocortisone 2.5 % Rectal Cr 30 Gm Tube) 1 appl [place] QID PRN PRN Reason: hemorrhoids Lactated Ringer's (Lr) 1,000 mls @ 100 mls/hr IVCONT .Q10H [facility] Last Infusion: 05/29/21 12:47 Dose: Infused Documented by: Magnesium Sulfate (Magnesium Sulfate/H2o) 2 gm in 50 mls @ 25 mls/hr IV ONCE ONE Stop: 05/29/21 14:40 Insulin Human Lispro (Insulin Lispro 100 Unit/Ml 3 Ml Vial) 0 unit SUBCUT QIDACHS [facility]; Protocol Last Admin: 05/29/21 11:22 Dose: Not Given Documented by: Magnesium Oxide (Magnesium Oxide 400 Mg Tablet) 400 mg PO DAILY [facility] Last Admin: 05/29/21 08:52 Dose: 400 mg Documented by: Medication (No Benzodiazepines) 1 each MISCELLANE DAILY [facility] Nicotine Polacrilex (Nicotine Polacrilex 2 Mg Gum) 2 mg BUCCAL Q2H PRN PRN Reason: Nicotine Cravings Omeprazole (Omeprazole 20 Mg Capsule.) 20 mg PO DAILY@0630 [facility] Last Admin: 05/29/21 05:27 Dose: 20 mg Documented by: Pharmacy Consult (Consult Rx Perform Med Rec) 1 each MISCELLANE ONCE PRN PRN Reason: Consult order Phenobarbital (Phenobarbital 30 Mg Tablet) 30 mg PO BID [facility] Stop: 05/30/21 21:01 Last Admin: 05/29/21 08:52 Dose: 30 mg Documented by: Phenobarbital (Phenobarbital 15 Mg Tablet) 15 mg PO DAILY [facility] Stop: 06/01/21 09:01 Pyridoxine HCl (Pyridoxine Hcl (Vitamin B6) 50 Mg Tablet) 50 mg PO DAILY [facility] Last Admin: 05/29/21 08:52 Dose: 50 mg Documented by: Senna (Sennosides 8.6 Mg Tablet) 8.6 mg PO BEDTIME [facility] Last Admin: 05/28/21 20:24 Dose: Not Given Documented by: Sodium Chloride (0.9 % Sodium Chloride Flush 3 Ml Syringe) 3 ml IVFLUSH QSHIFT [facility] Last Admin: 05/29/21 08:52 Dose: 3 ml Documented by: Thiamine HCl (Thiamine Hcl 100 Mg Tablet) 100 mg PO DAILY [facility] Last Admin: 05/29/21 08:53 Dose: 100 mg Documented by: Home Medications Medication Instructions Recorded Confirmed Last Taken Type atorvastatin 80 mg tablet 1 tab PO DAILY 06/07/20 05/26/21 06/07/20 History lansoprazole 30 mg capsule,delayed 1 cap PO DAILY 06/07/20 05/26/21 06/07/20 History release lisinopril 40 mg tablet 1 tab PO DAILY 06/07/20 05/26/21 06/07/20 History magnesium oxide 400 mg (241.3 mg 400 mg PO DAILY 11/28/20 05/26/21 Unknown History magnesium) tablet pyridoxine (vitamin B6) 50 mg 50 mg PO DAILY 11/28/20 05/26/21 Unknown History tablet Exam Exam Date and Time: May 29, 2021 131 Height,Weight and Vital Signs: Height 5 ft 11 in Weight 86.183 kg Last Vital Signs Temp 98.0 F 05/29/21 12:10 Pulse 66 05/29/21 12:10 Resp 16 05/29/21 12:10 BP 109/65 05/29/21 12:10 Pulse Ox 95 05/29/21 12:10 Pertinent Lab Results Pertinent Lab Results: Laboratory Tests 05/26/21 05/26/21 05/26/21 11:56 11:56 11:56 WBC 5.2 RBC 3.71 L Hgb 12.6 L Hct 36.5 L MCV 98.4 H MCH 34.0 H MCHC 34.5 RDW 13.7 Plt Count 135 L D MPV 10.3 Immature Gran % (Auto) 0.8 H Neut % (Auto) 67.1 Lymph % (Auto) 18.2 L [place] % (Auto) 12.0 H Eos % (Auto) 1.1 Baso % (Auto) 0.8 Lymph # (Auto) 1.0 L [place] # (Auto) 0.6 Eos # (Auto) 0.1 Baso # (Auto) 0.0 Abs Immat Gran (auto) 0.04 H Absolute Neuts (auto) 3.5 Absolute Nucleated RBC 0.000 Nucleated RBC % (auto) 0.0 PT 12.1 INR 1.1 Sodium 144 Potassium 3.2 L Chloride 95 L Carbon Dioxide 23 Anion Gap 29 H BUN 21 H Creatinine 1.30 Estim Creat Clear Calc 61.9 Estimated GFR 56 POC Glucose Random Glucose 150 H Calcium 8.2 L D Magnesium 0.9 L* Total Bilirubin 1.3 H Direct Bilirubin 0.9 H AST 149 H ALT 88 H Alkaline Phosphatase 174 H D Total Protein 6.2 L Albumin 3.7 Lipase 46 Urine Color Urine Appearance Urine pH Ur Specific [place] Urine Protein Urine Glucose (UA) Urine Ketones Urine Blood Urine Nitrite Ur Leukocyte Esterase Urine RBC Urine WBC Ur Squamous Epith Cells Amorphous Sediment Urine Bacteria Hyaline Casts Granular Casts Urine Mucus Stool Occult Blood Ethyl Alcohol COVID-19 ([facility]) COVID-19 Clin Com Hep Bs Antigen Hep Bs Antibody Hep B Core Total Ab Hepatitis C Ab (EIA) 05/26/21 05/26/21 05/26/21 11:56 11:56 11:58 WBC RBC Hgb Hct MCV MCH MCHC RDW Plt Count MPV Immature Gran % (Auto) Neut % (Auto) Lymph % (Auto) [place] % (Auto) Eos % (Auto) Baso % (Auto) Lymph # (Auto) [place] # (Auto) Eos # (Auto) Baso # (Auto) Abs Immat Gran (auto) Absolute Neuts (auto) Absolute Nucleated RBC Nucleated RBC % (auto) PT INR Sodium Potassium Chloride Carbon Dioxide Anion Gap BUN Creatinine Estim Creat Clear Calc Estimated GFR POC Glucose Random Glucose Calcium Magnesium Total Bilirubin Direct Bilirubin AST ALT Alkaline Phosphatase Total Protein Albumin Lipase Urine Color Urine Appearance Urine pH Ur Specific [place] Urine Protein Urine Glucose (UA) Urine Ketones Urine Blood Urine Nitrite Ur Leukocyte Esterase Urine RBC Urine WBC Ur Squamous Epith Cells Amorphous Sediment Urine Bacteria Hyaline Casts Granular Casts Urine Mucus Stool Occult Blood POSITIVE Ethyl Alcohol COVID-19 ([facility]) Negative COVID-19 Clin Com See Note Hep Bs Antigen Negative Hep Bs Antibody NONREACTIVE Hep B Core Total Ab Nonreactive Hepatitis C Ab (EIA) Nonreactive 05/26/21 05/26/21 05/26/21 12:50 16:24 16:24 WBC 5.8 RBC 3.68 L Hgb 12.4 L Hct 36.0 L MCV 97.8 MCH 33.7 H MCHC 34.4 RDW 13.7 Plt Count 146 L MPV 10.0 Immature Gran % (Auto) 0.7 H Neut % (Auto) 68.7 Lymph % (Auto) 18.9 L [place] % (Auto) 10.5 Eos % (Auto) 0.7 Baso % (Auto) 0.5 Lymph # (Auto) 1.1 L [place] # (Auto) 0.6 Eos # (Auto) 0.0 Baso # (Auto) 0.0 Abs Immat Gran (auto) 0.04 H Absolute Neuts (auto) 4.0 Absolute Nucleated RBC 0.000 Nucleated RBC % (auto) 0.0 PT INR Sodium Potassium Chloride Carbon Dioxide Anion Gap BUN Creatinine Estim Creat Clear Calc Estimated GFR POC Glucose Random Glucose Calcium Magnesium Total Bilirubin Direct Bilirubin AST ALT Alkaline Phosphatase Total Protein Albumin Lipase Urine Color YELLOW Urine Appearance CLEAR Urine pH 5.5 Ur Specific [place] 1.025 Urine Protein 1+ H Urine Glucose (UA) >=1000 H Urine Ketones 15 Urine Blood TRACE Urine Nitrite NEG Ur Leukocyte Esterase NEG Urine RBC 0-2 Urine WBC 0-2 Ur Squamous Epith Cells TRACE Amorphous Sediment TRACE Urine Bacteria NONE Hyaline Casts 0-2 Granular Casts 1-4 Urine Mucus TRACE Stool Occult Blood Ethyl Alcohol < 10 COVID-19 ([facility]) COVID-19 Clin Com Hep Bs Antigen Hep Bs Antibody Hep B Core Total Ab Hepatitis C Ab (EIA) 05/26/21 05/26/21 05/26/21 16:49 20:52 20:56 WBC RBC Hgb 11.6 L Hct 35.0 L MCV MCH MCHC RDW Plt Count MPV Immature Gran % (Auto) Neut % (Auto) Lymph % (Auto) [place] % (Auto) Eos % (Auto) Baso % (Auto) Lymph # (Auto) [place] # (Auto) Eos # (Auto) Baso # (Auto) Abs Immat Gran (auto) Absolute Neuts (auto) Absolute Nucleated RBC Nucleated RBC % (auto) PT INR Sodium Potassium Chloride Carbon Dioxide Anion Gap BUN Creatinine Estim Creat Clear Calc Estimated GFR POC Glucose 144 H 159 H Random Glucose Calcium Magnesium Total Bilirubin Direct Bilirubin AST ALT Alkaline Phosphatase Total Protein Albumin Lipase Urine Color Urine Appearance Urine pH Ur Specific [place] Urine Protein Urine Glucose (UA) Urine Ketones Urine Blood Urine Nitrite Ur Leukocyte Esterase Urine RBC Urine WBC Ur Squamous Epith Cells Amorphous Sediment Urine Bacteria Hyaline Casts Granular Casts Urine Mucus Stool Occult Blood Ethyl Alcohol COVID-19 ([facility]) COVID-19 Clin Com Hep Bs Antigen Hep Bs Antibody Hep B Core Total Ab Hepatitis C Ab (EIA) 05/27/21 05/27/21 05/27/21 07:15 07:15 08:27 WBC 4.6 L RBC 3.07 L Hgb 10.5 L Hct 30.4 L MCV 99.0 H MCH 34.2 H MCHC 34.5 RDW 14.0 Plt Count 123 L MPV 11.1 Immature Gran % (Auto) 0.4 Neut % (Auto) 56.1 Lymph % (Auto) 26.6 [place] % (Auto) 13.2 H Eos % (Auto) 2.8 Baso % (Auto) 0.9 Lymph # (Auto) 1.2 [place] # (Auto) 0.6 Eos # (Auto) 0.1 Baso # (Auto) 0.0 Abs Immat Gran (auto) 0.02 Absolute Neuts (auto) 2.6 Absolute Nucleated RBC 0.000 Nucleated RBC % (auto) 0.0 PT INR Sodium 141 Potassium 2.8 L Chloride 99 Carbon Dioxide 25 Anion Gap 20 BUN 16 Creatinine 1.00 Estim Creat Clear Calc 80.5 Estimated GFR > 60 POC Glucose 163 H Random Glucose 111 Calcium 7.3 L D Magnesium 1.6 Total Bilirubin 1.3 H Direct Bilirubin 0.8 H AST 107 H ALT 68 H Alkaline Phosphatase 138 H D Total Protein 5.3 L Albumin 3.2 L Lipase Urine Color Urine Appearance Urine pH Ur Specific [place] Urine Protein Urine Glucose (UA) Urine Ketones Urine Blood Urine Nitrite Ur Leukocyte Esterase Urine RBC Urine WBC Ur Squamous Epith Cells Amorphous Sediment Urine Bacteria Hyaline Casts Granular Casts Urine Mucus Stool Occult Blood Ethyl Alcohol COVID-19 ([facility]) COVID-19 Clin Com Hep Bs Antigen Hep Bs Antibody Hep B Core Total Ab Hepatitis C Ab (EIA) 05/27/21 05/27/21 05/27/21 13:35 15:55 18:16 WBC RBC Hgb 10.6 L Hct 30.5 L MCV MCH MCHC RDW Plt Count MPV Immature Gran % (Auto) Neut % (Auto) Lymph % (Auto) [place] % (Auto) Eos % (Auto) Baso % (Auto) Lymph # (Auto) [place] # (Auto) Eos # (Auto) Baso # (Auto) Abs Immat Gran (auto) Absolute Neuts (auto) Absolute Nucleated RBC Nucleated RBC % (auto) PT INR Sodium Potassium Chloride Carbon Dioxide Anion Gap BUN Creatinine Estim Creat Clear Calc Estimated GFR POC Glucose 112 108 Random Glucose Calcium Magnesium Total Bilirubin Direct Bilirubin AST ALT Alkaline Phosphatase Total Protein Albumin Lipase Urine Color Urine Appearance Urine pH Ur Specific [place] Urine Protein Urine Glucose (UA) Urine Ketones Urine Blood Urine Nitrite Ur Leukocyte Esterase Urine RBC Urine WBC Ur Squamous Epith Cells Amorphous Sediment Urine Bacteria Hyaline Casts Granular Casts Urine Mucus Stool Occult Blood Ethyl Alcohol COVID-19 ([facility]) COVID-19 Clin Com Hep Bs Antigen Hep Bs Antibody Hep B Core Total Ab Hepatitis C Ab (EIA) 05/27/21 05/28/21 05/28/21 20:24 05:11 05:11 WBC 4.4 L RBC 2.89 L Hgb 9.7 L Hct 28.6 L MCV 99.0 H MCH 33.6 H MCHC 33.9 RDW 13.6 Plt Count 107 L MPV 11.1 Immature Gran % (Auto) Neut % (Auto) Lymph % (Auto) [place] % (Auto) Eos % (Auto) Baso % (Auto) Lymph # (Auto) [place] # (Auto) Eos # (Auto) Baso # (Auto) Abs Immat Gran (auto) Absolute Neuts (auto) Absolute Nucleated RBC 0.000 Nucleated RBC % (auto) 0.0 PT INR Sodium 140 Potassium 3.1 L Chloride 99 Carbon Dioxide 27 Anion Gap 17 BUN 11 Creatinine 0.79 Estim Creat Clear Calc 101.9 Estimated GFR > 60 POC Glucose 139 H Random Glucose 106 Calcium 6.8 L D Magnesium 1.3 L* Total Bilirubin 0.8 Direct Bilirubin 0.5 AST 109 H ALT 63 H Alkaline Phosphatase 124 H Total Protein 4.9 L Albumin 2.9 L Lipase Urine Color Urine Appearance Urine pH Ur Specific [place] Urine Protein Urine Glucose (UA) Urine Ketones Urine Blood Urine Nitrite Ur Leukocyte Esterase Urine RBC Urine WBC Ur Squamous Epith Cells Amorphous Sediment Urine Bacteria Hyaline Casts Granular Casts Urine Mucus Stool Occult Blood Ethyl Alcohol COVID-19 ([facility]) COVID-19 Clin Com Hep Bs Antigen Hep Bs Antibody Hep B Core Total Ab Hepatitis C Ab (EIA) 05/28/21 05/28/21 05/28/21 07:13 10:51 16:19 WBC RBC Hgb Hct MCV MCH MCHC RDW Plt Count MPV Immature Gran % (Auto) Neut % (Auto) Lymph % (Auto) [place] % (Auto) Eos % (Auto) Baso % (Auto) Lymph # (Auto) [place] # (Auto) Eos # (Auto) Baso # (Auto) Abs Immat Gran (auto) Absolute Neuts (auto) Absolute Nucleated RBC Nucleated RBC % (auto) PT INR Sodium Potassium Chloride Carbon Dioxide Anion Gap BUN Creatinine Estim Creat Clear Calc Estimated GFR POC Glucose 105 122 H 117 H Random Glucose Calcium Magnesium Total Bilirubin Direct Bilirubin AST ALT Alkaline Phosphatase Total Protein Albumin Lipase Urine Color Urine Appearance Urine pH Ur Specific [place] Urine Protein Urine Glucose (UA) Urine Ketones Urine Blood Urine Nitrite Ur Leukocyte Esterase Urine RBC Urine WBC Ur Squamous Epith Cells Amorphous Sediment Urine Bacteria Hyaline Casts Granular Casts Urine Mucus Stool Occult Blood Ethyl Alcohol COVID-19 ([facility]) COVID-19 Clin Com Hep Bs Antigen Hep Bs Antibody Hep B Core Total Ab Hepatitis C Ab (EIA) 05/28/21 05/29/21 05/29/21 20:18 07:13 11:03 WBC RBC Hgb Hct MCV MCH MCHC RDW Plt Count MPV Immature Gran % (Auto) Neut % (Auto) Lymph % (Auto) [place] % (Auto) Eos % (Auto) Baso % (Auto) Lymph # (Auto) [place] # (Auto) Eos # (Auto) Baso # (Auto) Abs Immat Gran (auto) Absolute Neuts (auto) Absolute Nucleated RBC Nucleated RBC % (auto) PT INR Sodium Potassium Chloride Carbon Dioxide Anion Gap BUN Creatinine Estim Creat Clear Calc Estimated GFR POC Glucose 143 H 135 H 139 H Random Glucose Calcium Magnesium Total Bilirubin Direct Bilirubin AST ALT Alkaline Phosphatase Total Protein Albumin Lipase Urine Color Urine Appearance Urine pH Ur Specific [place] Urine Protein Urine Glucose (UA) Urine Ketones Urine Blood Urine Nitrite Ur Leukocyte Esterase Urine RBC Urine WBC Ur Squamous Epith Cells Amorphous Sediment Urine Bacteria Hyaline Casts Granular Casts Urine Mucus Stool Occult Blood Ethyl Alcohol COVID-19 ([facility]) COVID-19 Clin Com Hep Bs Antigen Hep Bs Antibody Hep B Core Total Ab Hepatitis C Ab (EIA) 05/29/21 11:28 WBC RBC Hgb Hct MCV MCH MCHC RDW Plt Count MPV Immature Gran % (Auto) Neut % (Auto) Lymph % (Auto) [place] % (Auto) Eos % (Auto) Baso % (Auto) Lymph # (Auto) [place] # (Auto) Eos # (Auto) Baso # (Auto) Abs Immat Gran (auto) Absolute Neuts (auto) Absolute Nucleated RBC Nucleated RBC % (auto) PT INR Sodium 139 Potassium 3.5 Chloride 101 Carbon Dioxide 29 Anion Gap 13 BUN 7 L Creatinine 0.74 Estim Creat Clear Calc 108.8 Estimated GFR > 60 POC Glucose Random Glucose 132 H Calcium 6.8 L Magnesium 1.3 L* Total Bilirubin Direct Bilirubin AST ALT Alkaline Phosphatase Total Protein Albumin Lipase Urine Color Urine Appearance Urine pH Ur Specific [place] Urine Protein Urine Glucose (UA) Urine Ketones Urine Blood Urine Nitrite Ur Leukocyte Esterase Urine RBC Urine WBC Ur Squamous Epith Cells Amorphous Sediment Urine Bacteria Hyaline Casts Granular Casts Urine Mucus Stool Occult Blood Ethyl Alcohol COVID-19 ([facility]) COVID-19 Clin Com Hep Bs Antigen Hep Bs Antibody Hep B Core Total Ab Hepatitis C Ab (EIA) Airway Mallampati Class: II TM Dist: >3cm Neck ROM: Full Loose/Missing/Broken Teeth: Yes (poor dentation ) Heart: rrr Lungs: distant breath sounds Assessment and Plan Assessment Anesthesia Assessment: Anesthesia Plan Discussed and Chart Reviewed Final Anesthetic Review Family History of Problems with Anesthesia: No History of Problems with Anesthesia: No NPO: Yes ASA Class: III and Emergency Final Preanesthetic Review: Meds/Allgs Chart Reviewed, Consent Obtained/Reviewed and Anes Risks/Benef Reviewed Patient Risk: High Procedure Risk: Intermediate Anesthetic Plan Anesthetic Plan: GA Disposition: Inp. Admit - Standard Bed
--- NOTE | 2021-05-29 14:40 | W.PM.OPN ---
Operative Note Operative Note Date of Service: 05/29/21 Narrative: Preop diagnosis: Bleeding hemorrhoids Postop diagnosis: Bleeding hemorrhoids, internal and external Procedure: Exam under anesthesia, hemorrhoidectomy and rubber-band ligation surgeon: Kris Owens MD teachers' assistant: CRISTINA Myles student The patient is a 65-year-old male was admitted because of frequent rectal bleeding. He has a long history of alcohol abuse. He underwent colonoscopy yesterday showing internal and external hemorrhoids, with no other likely source of rectal bleeding. He was therefore referred to me for hemorrhoidectomy in view of this. I explained to him the technique of hemorrhoidectomy. I reviewed the risks including but not limited to bleeding, infection, postop pain, persistent/ recurrent bleeding, as well as the benefits and alternatives and he had given consent. He was brought to the operating room. He was placed in prone fransisco-knife position under general anesthesia via endotracheal tube. The buttocks were retracted with wide tape laterally. the perianal area was prepped and draped in the usual sterile fashion. A surgical time-out was done. The patient received Cefotan 2 g IV preoperatively Examination of the anal orifice revealed external hemorrhoids on both the left and the right side. I inserted the Jennie Gomez retractor. I examined the anal canal circumferentially. There was actually a prominent mixed hemorrhoidal column on the right anterior aspect towards the midline. This is a combination of both internal external hemorrhoids. The internal component seemed to bleed easily. There were other multiple medical columns on both the left and right side, mostly external. I applied a Gardner grasper on the hemorrhoidal column mention above to bring this out into the field. I applied a liessk-oc-grezy stitch using chromic 3-0 at its pedicle proximal to the dentate line. I made an incision around this hemorrhoidal column to the perianal skin using a blade 15 and excised this above the plane of the sphincters. I had noticed that there was pressure being from the excised hemorrhoids. This is likely secondary to portal hypertension from his chronic liver disease . I closed this incision with a running chromic 3-0 stitch. I had to place multiple figure-eight chromic 3-0 sutures because of the high flow bleeding from this hemorrhoids. The other hemorrhoidal columns also up lead to bleed easily and we had to apply figure-eight chromic 3-0 stitches as well. there was a bulky final hemorrhoidal column on the right posterior. We applied a rubber band at the base using the applicator to ligate this. The patient actually had other columns but in view of the high pressure bleeding from the 1st hemorrhoidectomy site, I decided that it would not be a good idea to excise these other hemorrhoids in view of the bleeding risks. I observed for hemostasis for 2 minutes. Once hemostasis was ensured, I proceeded to apply a rolled Gelfoam packing to the anal canal. I infiltrated the perianal area with Marcaine 0.5% for postop analgesia. The procedure was then completed. The patient tolerated procedure well. There were no complications noted. Initial and final counts of sponges and instruments were correct. Estimated blood loss was about 100 cc. The patient was extubated without difficulty and transferred to the recovery room with stable vital signs.
[2021-05-29] MEDS: fentaNYL citrate/PF 100 MCG/2 ML VIAL 25 MCG IVPUSH (15:19)
[2021-05-29] MEDS: ondansetron HCL 4 MG/2 ML VIAL IVPUSH (15:34)
[2021-05-29 16:03] LABS: Glucose, Whole Blood 152 mg/dL (60-115)
[2021-05-29] MEDS: oxyCODONE HCl Immed Release 5 MG TABLET 10 MG PO (18:33)
[2021-05-29 20:20] LABS: Glucose, Whole Blood 135 mg/dL (60-115)
[2021-05-30] MEDS: oxyCODONE HCl Immed Release 5 MG TABLET 10 MG PO (00:04)
[2021-05-30 03:02] VITALS: BP 97/63; PULSE 69; RESP 18; TEMP 37.1; O2SAT 92
[2021-05-30 04:03] LABS: Hepatitis A Antibody IgM 0.54 Index (0-0.79); ~Hepatitis A Antibody IgM Nonreactive (Nonreactive)
[2021-05-30] MEDS: Omeprazole 20 MG CAPSULE.DR PO (06:12)
[2021-05-30 07:01] VITALS: BP 116/59; PULSE 78; RESP 18; TEMP 36.9; O2SAT 93
[2021-05-30 07:05] LABS: Anion Gap 14 (12-20); Blood Urea Nitrogen 6 mg/dL (9-16); Calcium 6.7 mg/dL (8.4-10.2); Carbon Dioxide 29 mmol/L (22-29); Chloride 99 mmol/L (96-108); Creatinine Clr Calc Pharmacy 110.3; Estimated Glomerular Filt Rate > 60; Glucose Random 135 mg/dL (60-115); Magnesium 1.3 mg/dL (1.6-2.6); Potassium 3.3 mmol/L (3.3-5.1); Sodium 139 mmol/L (135-145)
[2021-05-30 07:25] LABS: Glucose, Whole Blood 135 mg/dL (60-115)
--- NOTE | 2021-05-30 08:07 | HO.POSTANES ---
Post Anesthesia Evaluation Post Anesthesia Evaluation Vital Signs: Vital Signs Temp Pulse Resp BP Pulse Ox 05/30/21 07:01 98.5 F 78 18 116/59 L 93 05/30/21 03:02 98.7 F 69 18 97/63 92 05/29/21 23:33 96.8 F 84 18 113/70 94 Anesthesia: General Mental Status: Awake Pain Control: Satisfactory Nausea/Vomiting: None Hydration: Adequate Anesthesia-Related Issues: No Anes. Related Issues
--- NOTE | 2021-05-30 08:38 | P.PNGS_ITS ---
Subjective Subjective Date of Service: 05/30/21 Interval history: says he is okay postop pain about 5/10 he says small amounts of blood seen per rectum with wiping Physical Exam Vital Signs: Vital Signs: Last Vital Signs Temp 98.5 F 05/30/21 07:01 Pulse 78 05/30/21 07:01 Resp 18 05/30/21 07:01 BP 116/59 L 05/30/21 07:01 Pulse Ox 93 05/30/21 07:01 BMI result Body Mass Index 26.4 Const: General: comfortable and no acute distress GI: Other: no significant bleeding on to me site Palpation (GI): Soft to palpation, not firm, nontender and no guarding Objective Data Active Medications Acetaminophen (Acetaminophen 325 Mg Tablet) 650 mg PO Q6H PRN PRN Reason: Pain, Mild (Pain Scale 1-3) Last Admin: 05/26/21 20:50 Dose: 650 mg Documented by: BRITTANY Albuterol Sulfate (Albuterol Sulfate (0.083%) 2.5 Mg/3 Ml Vial.Neb) 2.5 mg INHALE ONCE PRN PRN Reason: Wheezing Dextrose (Dextrose 50 % 25 Gm/50 Ml Syringe) 25 gm IVPUSH Q15M PRN; Protocol PRN Reason: per Hypoglycemia Standing Ord. Docusate Sodium (Docusate Sodium 100 Mg Capsule) 100 mg PO BID [facility] Last Admin: 05/29/21 20:53 Dose: Not Given Documented by: ULISES Non-Admin Reason: not given moved bowels x2 in a few hours Escitalopram Oxalate (Escitalopram Oxalate 20 Mg Tablet) 20 mg PO DAILY [facility] Last Admin: 05/29/21 08:52 Dose: 20 mg Documented by: REJI Fentanyl (Fentanyl Citrate/Pf 100 Mcg/2 Ml Vial) 25 mcg IVPUSH Q5M PRN; Protocol PRN Reason: Pain, Moderate (Pain Scale 4-6 Last Admin: 05/29/21 15:19 Dose: 25 mcg Documented by: ZIGGY Folic Acid (Folic Acid 1 Mg Tablet) 1 mg PO DAILY [facility] Last Admin: 05/29/21 08:52 Dose: 1 mg Documented by: REJI Gabapentin (Gabapentin 300 Mg Capsule) 300 mg PO TID [facility] Last Admin: 05/29/21 20:52 Dose: 300 mg Documented by: ULISES Glucose (Glucose Gel 15 Gm Gel..Gram.) 15 gm PO Q15M PRN; Protocol PRN Reason: per Hypoglycemia Standing Ord. Hydrocortisone (Hydrocortisone 2.5 % Rectal Cr 30 Gm Tube) 1 appl [place] QID PRN PRN Reason: hemorrhoids Hydromorphone HCl (Hydromorphone Hcl 0.5 Mg/0.5 Ml Syringe) 0.25 mg IVPUSH Q5M PRN; Protocol PRN Reason: Pain, Severe (Pain Scale 7-10) Magnesium Sulfate (Magnesium Sulfate/H2o) 2 gm in 50 mls @ 25 mls/hr IV ONCE ONE Stop: 05/30/21 10:05 Insulin Human Lispro (Insulin Lispro 100 Unit/Ml 3 Ml Vial) 0 unit SUBCUT QIDACHS [facility]; Protocol Last Admin: 05/30/21 07:21 Dose: Not Given Documented by: KIERAN Non-Admin Reason: No Insulin Coverage Magnesium Oxide (Magnesium Oxide 400 Mg Tablet) 400 mg PO DAILY [facility] Last Admin: 05/29/21 08:52 Dose: 400 mg Documented by: REJI Medication (No Benzodiazepines) 1 each MISCELLANE DAILY [facility] Morphine Sulfate (Morphine Sulfate 4 Mg/Ml Cartridge) 3 mg IVPUSH Q4H PRN; Protocol PRN Reason: Pain, Severe (Pain Scale 7-10) Nicotine Polacrilex (Nicotine Polacrilex 2 Mg Gum) 2 mg BUCCAL Q2H PRN PRN Reason: Nicotine Cravings Omeprazole (Omeprazole 20 Mg Capsule.Dr) 20 mg PO DAILY@0630 [facility] Last Admin: 05/30/21 06:12 Dose: 20 mg Documented by: NATALI Oxycodone HCl (Oxycodone Hcl Immed Release 5 Mg Tablet) 10 mg PO Q4H PRN PRN Reason: Pain, Moderate (Pain Scale 4-6 Last Admin: 05/30/21 00:04 Dose: 10 mg Documented by: NATALI Pharmacy Consult (Consult Rx Perform Med Rec) 1 each MISCELLANE ONCE PRN PRN Reason: Consult order Phenobarbital (Phenobarbital 30 Mg Tablet) 30 mg PO BID [facility] Stop: 05/30/21 21:01 Last Admin: 05/29/21 20:52 Dose: 30 mg Documented by: ULISES Phenobarbital (Phenobarbital 15 Mg Tablet) 15 mg PO DAILY [facility] Stop: 06/01/21 09:01 Pyridoxine HCl (Pyridoxine Hcl (Vitamin B6) 50 Mg Tablet) 50 mg PO DAILY [facility] Last Admin: 05/29/21 08:52 Dose: 50 mg Documented by: REJI Senna (Sennosides 8.6 Mg Tablet) 8.6 mg PO BEDTIME [facility] Last Admin: 05/29/21 20:53 Dose: Not Given Documented by: ULISES Non-Admin Reason: moved bowels x2 in last few hours Sodium Chloride (0.9 % Sodium Chloride Flush 3 Ml Syringe) 3 ml IVFLUSH QSHIFT [facility] Last Admin: 05/29/21 20:54 Dose: 3 ml Documented by: ULISES Thiamine HCl (Thiamine Hcl 100 Mg Tablet) 100 mg PO DAILY [facility] Last Admin: 05/29/21 08:53 Dose: 100 mg Documented by: REJI Labs CBC & Chem 7: 05/28/21 05:11 05/30/21 06:30 Labs: Laboratory Results - last 24 hr 05/26/21 05/29/21 05/29/21 11:58 11:03 11:28 Anion Gap 13 Estim Creat Clear Calc 108.8 Estimated GFR > 60 POC Glucose 139 H Random Glucose 132 H Calcium 6.8 L Magnesium 1.3 L* Hepatitis A IgM Ab Nonreactive 05/29/21 05/29/21 05/30/21 15:55 20:10 06:30 Anion Gap 14 Estim Creat Clear Calc 110.3 Estimated GFR > 60 POC Glucose 152 H 135 H Random Glucose 135 H Calcium 6.7 L Magnesium 1.3 L* Hepatitis A IgM Ab 05/30/21 05/30/21 06:30 07:02 Anion Gap Estim Creat Clear Calc Estimated GFR POC Glucose 135 H Random Glucose Calcium Magnesium Cancelled Hepatitis A IgM Ab Procedures Date of Service Date of Service: 05/30/21 Progress Note: A&P Assessment and plan (1) Bleeding hemorrhoids: Status: Acute Assessment and Plan: status post hemorrhoidectomy and rubber-band ligation he actually has multiple residual hemorrhoids he had significant bleeding from hemorrhoidectomy during the procedure likely secondary to his liver disease from alcohol I therefore explained to him that he may continue to see blood blood per rectum stool softeners advised on cessation of alcohol intake if discharge, I can see him in the office for a postop check in about 2 weeks Fall Risk Details Current Medications: Current Medications Acetaminophen (Acetaminophen 325 Mg Tablet) 650 mg PO Q6H PRN PRN Reason: Pain, Mild (Pain Scale 1-3) Last Admin: 05/26/21 20:50 Dose: 650 mg Documented by: Albuterol Sulfate (Albuterol Sulfate (0.083%) 2.5 Mg/3 Ml Vial.Neb) 2.5 mg INHALE ONCE PRN PRN Reason: Wheezing Dextrose (Dextrose 50 % 25 Gm/50 Ml Syringe) 25 gm IVPUSH Q15M PRN; Protocol PRN Reason: per Hypoglycemia Standing Ord. Docusate Sodium (Docusate Sodium 100 Mg Capsule) 100 mg PO BID [facility] Last Admin: 05/29/21 20:53 Dose: Not Given Documented by: Escitalopram Oxalate (Escitalopram Oxalate 20 Mg Tablet) 20 mg PO DAILY [facility] Last Admin: 05/29/21 08:52 Dose: 20 mg Documented by: Fentanyl (Fentanyl Citrate/Pf 100 Mcg/2 Ml Vial) 25 mcg IVPUSH Q5M PRN; Protocol PRN Reason: Pain, Moderate (Pain Scale 4-6 Last Admin: 05/29/21 15:19 Dose: 25 mcg Documented by: Folic Acid (Folic Acid 1 Mg Tablet) 1 mg PO DAILY [facility] Last Admin: 05/29/21 08:52 Dose: 1 mg Documented by: Gabapentin (Gabapentin 300 Mg Capsule) 300 mg PO TID [facility] Last Admin: 05/29/21 20:52 Dose: 300 mg Documented by: Glucose (Glucose Gel 15 Gm Gel..Gram.) 15 gm PO Q15M PRN; Protocol PRN Reason: per Hypoglycemia Standing Ord. Hydrocortisone (Hydrocortisone 2.5 % Rectal Cr 30 Gm Tube) 1 appl MN QID PRN PRN Reason: hemorrhoids Hydromorphone HCl (Hydromorphone Hcl 0.5 Mg/0.5 Ml Syringe) 0.25 mg IVPUSH Q5M PRN; Protocol PRN Reason: Pain, Severe (Pain Scale 7-10) Magnesium Sulfate (Magnesium Sulfate/H2o) 2 gm in 50 mls @ 25 mls/hr IV ONCE ONE Stop: 05/30/21 10:05 Insulin Human Lispro (Insulin Lispro 100 Unit/Ml 3 Ml Vial) 0 unit SUBCUT QIDACHS [facility]; Protocol Last Admin: 05/30/21 07:21 Dose: Not Given Documented by: Magnesium Oxide (Magnesium Oxide 400 Mg Tablet) 400 mg PO DAILY [facility] Last Admin: 05/29/21 08:52 Dose: 400 mg Documented by: Medication (No Benzodiazepines) 1 each MISCELLANE DAILY [facility] Morphine Sulfate (Morphine Sulfate 4 Mg/Ml Cartridge) 3 mg IVPUSH Q4H PRN; Protocol PRN Reason: Pain, Severe (Pain Scale 7-10) Nicotine Polacrilex (Nicotine Polacrilex 2 Mg Gum) 2 mg BUCCAL Q2H PRN PRN Reason: Nicotine Cravings Omeprazole (Omeprazole 20 Mg Capsule.Dr) 20 mg PO DAILY@0630 [facility] Last Admin: 05/30/21 06:12 Dose: 20 mg Documented by: Oxycodone HCl (Oxycodone Hcl Immed Release 5 Mg Tablet) 10 mg PO Q4H PRN PRN Reason: Pain, Moderate (Pain Scale 4-6 Last Admin: 05/30/21 00:04 Dose: 10 mg Documented by: Pharmacy Consult (Consult Rx Perform Med Rec) 1 each MISCELLANE ONCE PRN PRN Reason: Consult order Phenobarbital (Phenobarbital 30 Mg Tablet) 30 mg PO BID [facility] Stop: 05/30/21 21:01 Last Admin: 05/29/21 20:52 Dose: 30 mg Documented by: Phenobarbital (Phenobarbital 15 Mg Tablet) 15 mg PO DAILY [facility] Stop: 06/01/21 09:01 Pyridoxine HCl (Pyridoxine Hcl (Vitamin B6) 50 Mg Tablet) 50 mg PO DAILY [facility] Last Admin: 05/29/21 08:52 Dose: 50 mg Documented by: Senna (Sennosides 8.6 Mg Tablet) 8.6 mg PO BEDTIME [facility] Last Admin: 05/29/21 20:53 Dose: Not Given Documented by: Sodium Chloride (0.9 % Sodium Chloride Flush 3 Ml Syringe) 3 ml IVFLUSH QSHIFT [facility] Last Admin: 05/29/21 20:54 Dose: 3 ml Documented by: Thiamine HCl (Thiamine Hcl 100 Mg Tablet) 100 mg PO DAILY [facility] Last Admin: 05/29/21 08:53 Dose: 100 mg Documented by: Time Spent With Patient Time: Total time spent is greater than 50% in coordination of care (as documented) at patient's floor/unit and/or counseling patient: Time with patient: 15 - 24 minutes Quality Stroke Does the patient have a stroke diagnosis?: No VTE Prior VTE?: No VTE Risk Level:: Medical - moderate - high VTE Device Contraindication: N/A - Device Ordered VTE Drug Contraindication: Treatment Not Indicated
[2021-05-30] MEDS: Pyridoxine HCl (Vitamin B6) 50 MG TABLET PO (10:18)
[2021-05-30] MEDS: Magnesium Oxide 400 MG TABLET PO (10:18)
[2021-05-30] MEDS: Docusate Sodium 100 MG CAPSULE PO (10:18)
[2021-05-30] MEDS: Escitalopram Oxalate 20 MG TABLET PO (10:18)
[2021-05-30] MEDS: Gabapentin 300 MG CAPSULE PO (10:18)
[2021-05-30] MEDS: Folic Acid 1 MG TABLET PO (10:18)
[2021-05-30] MEDS: Thiamine HCL 100 MG TABLET PO (10:18)
[2021-05-30] MEDS: PHENobarbitaL 30 MG TABLET PO (10:18)
[2021-05-30] MEDS: 0.9 % Sodium Chloride Flush 3 ML SYRINGE IVFLUSH (10:19)
[2021-05-30] MEDS: Magnesium Sulfate/H2O 2 GM/50 ML PIGGYBACK IV (10:19)
[2021-05-30 11:07] VITALS: BP 102/65; PULSE 75; RESP 18; TEMP 36.3; O2SAT 95
[2021-05-30 11:09] LABS: Glucose, Whole Blood 165 mg/dL (60-115)
[2021-05-30 11:18] LABS: Hematocrit 29.4 % (42.0-52.0); Hemoglobin 9.9 g/dl (14.0-18.0)
--- NOTE | 2021-05-30 11:33 | PM.DS ---
DS: Providers Provider Date of Service: 05/30/21 Date of admission: 05/26/21 15:50 Primary care physician: Balbir Schmid MD Consults: 05/26/21 16:00 Consult to Gastroenterology Routine Consulting Provider: Ezio Loyola Reason for consultation: rectal bleeding Has provider been notified: Yes 05/27/21 11:03 Consult to Care Team Routine Comment: Reason for consultation: alcohol use 05/28/21 15:26 Consult to General Surgery Routine Consulting Provider: Kris Owens Reason for consultation: Hemorrhoidal band ligation Has provider been notified: No Attending physician on discharge: Benny Snell Discharging clinician: Jeniffer Arnold DS: Diagnosis Discharge Diagnosis (1) Bleeding hemorrhoids: Status: Acute (2) S/P hemorrhoidectomy: Status: Acute (3) Hypomagnesemia: Status: Acute DS: Summary Hospital Course Hospital Course: Hp as per admitting provider This is a 65 male who presents to the emergency department today with complaints of rectal bleeding.? For the past 2 days he has had 3-4 episodes of bright red blood per rectum. Initially the blood was mixed with stool but now it is just blood. He reports the blood was squirting out and filling the toilet bowl. He denies any associated abdominal pain but does report feeling bloated.? He does have some nausea, no vomiting.? He has diagnosis history of hemorrhoids and has had intermittent rectal bleeding in the past but has never been this severe and typically only lasts 1 day.? Stool occult blood was positive.? Blood pressure was noted to be on the lower side and he was mildly tachycardic. Lab? work in the emergency department revealed hypokalemia with potassium of 3.2, hypomagnesemia with magnesium level of 0.9.? LFTs were somewhat elevated.? Ultrasound of the abdomen revealed hepatic steatosis and no other acute abnormalities.? He was seen by Gastroenterology while in the emergency department who recommended repeating CBC after 4 hours.? If the patient continues to have bleeding with associated drop in his H and H, obtaining a CT angiogram to localize the bleeding site was recommended. The patient reports drinking 3 beers and 1-2 mixed drinks daily he does have history of alcohol withdrawal but denies any alcohol withdrawal seizures in the past.? His last drink was approximately 21:00 last night.? He does not currently endorse experiencing any withdrawal symptoms .? Acute GI bleeding. Colonoscopy? showed, colon polyp status post polypectomy, large internal hemorrhoids with recent bleeding.?Status post hemorrhoidectomy and ligation. Patient has a follow-up with General surgery in the office, continue PPI. H&H remained stable, no blood transfusion necessary. Hypomagnesemia. Likely secondary to alcohol use. Replaced with IV. Will increase home dose to 100 mg daily. He is to follow-up with his primary care doctor for further lab testing if needed. Alcohol use disorder with history of withdrawal . Treated with phenobarbital protocol. Continue thiamine folate supplementation. Outpatient referrals for community supports Time Spent with Patient Time attestation: Total time spent providing and/or coordinating discharge services: Discharge coordination time: Greater than 30 minutes Quality: Stroke Does the patient have a stroke diagnosis?: No Physical Exam Vital Signs: Vital Signs: Last Vital Signs Temp 97.4 F 05/30/21 11:07 Pulse 75 05/30/21 11:07 Resp 18 05/30/21 11:07 BP 102/65 05/30/21 11:07 Pulse Ox 95 05/30/21 11:07 BMI result Body Mass Index 26.4 Appearing in no acute distress head is normocephalic atraumatic eyes pupils are PERRLA sclera is anicteric mouth throat mucous membranes are intact and moist neck is supple no lymphadenopathy, no JVD noted lung sounds are clear to auscultation heart regular rate rhythm, clear S1, S2 positive bowel sounds, abdomen is soft, nontender neuro patient is alert x3, no focal deficits DS: Data Data Completed and Pending Completed studies during hospitalization [Text1]: Procedures Detoxification Services for Substance Abuse Treatment (06/07/20) Pending studies at discharge: Pending at discharge 05/28/21 13:00 Surgical [PTH] Routine 05/29/21 14:18 Surgical [PTH] Routine Labs on day of discharge: Laboratory Results - last 24 hr 05/26/21 05/29/21 05/29/21 11:58 11:28 15:55 Hgb Hct Sodium 139 Potassium 3.5 Chloride 101 Carbon Dioxide 29 Anion Gap 13 BUN 7 L Creatinine 0.74 Estim Creat Clear Calc 108.8 Estimated GFR > 60 POC Glucose 152 H Random Glucose 132 H Calcium 6.8 L Magnesium 1.3 L* Hepatitis A IgM Ab Nonreactive 05/29/21 05/30/2122 20:10 06:30 06:30 Hgb Hct Sodium 139 Potassium 3.3 Chloride 99 Carbon Dioxide 29 Anion Gap 14 BUN 6 L Creatinine 0.73 Estim Creat Clear Calc 110.3 Estimated GFR > 60 POC Glucose 135 H Random Glucose 135 H Calcium 6.7 L Magnesium 1.3 L* Cancelled Hepatitis A IgM Ab 05/30/21 05/30/21 05/30/21 07:02 11:05 11:07 Hgb 9.9 L Hct 29.4 L Sodium Potassium Chloride Carbon Dioxide Anion Gap BUN Creatinine Estim Creat Clear Calc Estimated GFR POC Glucose 135 H 165 H Random Glucose Calcium Magnesium Hepatitis A IgM Ab Discharge Plan Discharge Anticipated Discharge Date/Time: 05/30/21 11:25 Patient Disposition: Home, Self-Care Discharge Diagnosis: bleeding hemorrhoids Hypomagnesemia Referrals: Balbir Schmid MD [Primary Care Provider] - 1 Week Kris Owens MD [Physician] - 1 Week Discharge Medications: New oxycodone 5 mg Tablet 5 mg PO Q4H PRN (Reason: Pain, Moderate (Pain Scale 4-6) Qty: 18 0RF Continued alpha lipoic acid 600 mg capsule 600 mg PO DAILY 30 Days Qty: 30 6RF atorvastatin 80 mg tablet 1 tab PO DAILY 0RF lansoprazole 30 mg capsule,delayed release(DR/EC) 1 cap PO DAILY 0RF lisinopril 40 mg tablet 1 tab PO DAILY 0RF folic acid 1 mg tablet 1 mg PO DAILY 90 Days Qty: 90 3RF escitalopram oxalate 20 mg tablet 20 mg PO DAILY 90 Days Qty: 90 3RF thiamine HCl (vitamin B1) 100 mg tablet 100 mg PO DAILY 90 Days Qty: 90 3RF pyridoxine (vitamin B6) 50 mg tablet 50 mg PO DAILY 0RF gabapentin 300 mg capsule 300 mg PO TID 90 Days Qty: 270 3RF naltrexone 50 mg tablet 50 mg PO DAILY 90 Days Qty: 90 1RF Synjardy XR 12.5-1,000 mg tablet, IR - ER, biphasic 24hr 2 tab PO DAILY 30 Days Qty: 60 6RF hydrocortisone [Proctosol HC] 2.5 % cream with perineal applicator 1 appl UT BID-QID PRN (Reason: hemorrhoids) Qty: 30 0RF sennosides [Natural Senna Laxative] 8.6 mg tablet 8.6 mg PO BEDTIME Qty: 90 3RF Citrucel 500 mg tablet 500 mg PO DAILY Qty: 90 3RF Rx Instructions: take it with full glass of water Changed magnesium oxide 400 mg (241.3 mg magnesium) tablet 800 mg PO DAILY Qty: 60 0RF Discharge Orders: Discharge Order (Routine); Ordered 05/30/21 Ordered By: Jeniffer Arnold Diet: advance to usual diet Activity on Discharge: As tolerated Stand Alone Forms: Patient Portal Discharge page Care Plan Goals: resolution of symptoms Health Concerns: bleeding hemorrhoids Hypomagnesemia Plan of Treatment: follow-up with the general surgeon postoperatively Follow-up with primary care provider as needed Stop drinking alcohol Assessment: see discharge summary
--- NOTE | 2021-05-30 11:48 | MHC.CM.PN ---
Patient has been medically cleared for dc to home today, no services.
[2021-05-30 13:18] VITALS: O2SAT 94
== END 2021-05-30 15:32 | disposition home or self-care (01) | DRG 226 ==
LOC: HO.ED 13:50 → HO.EDOVER 16:18 → HO.IMC 05-27 16:03
PROVIDERS: Internal Medicine; Internal Medicine Gastroenterology; Physician Assistant; Surgery; Admitting Provider Physician Assistant Medical; Emergency Provider Emergency Medicine Emergency Medical Services; PCP Family Medicine; Visit Provider Nurse Practitioner Acute Care
PROC: 0DB58ZX Excision of Esophagus, Via Natural or Artificial Opening Endoscopic, Diagnostic (ICD-10-PCS; principal; 2021-05-28 13:10)
PROC: 06BY0ZC Excision of Hemorrhoidal Plexus, Open Approach (ICD-10-PCS; principal; 2021-05-29 12:50)
DX: K57.31 Diverticulosis of large intestine without perforation or abscess with bleeding (principal); N17.9 Acute kidney failure, unspecified; E11.42 Type 2 diabetes mellitus with diabetic polyneuropathy; D69.6 Thrombocytopenia, unspecified; D62 Acute posthemorrhagic anemia; K64.8 Other hemorrhoids; K76.0 Fatty (change of) liver, not elsewhere classified; E83.42 Hypomagnesemia; I10 Essential (primary) hypertension; E78.5 Hyperlipidemia, unspecified; F17.210 Nicotine dependence, cigarettes, uncomplicated; K64.4 Residual hemorrhoidal skin tags; F10.10 Alcohol abuse, uncomplicated; F32.A Depression, unspecified; K21.9 Gastro-esophageal reflux disease without esophagitis; F41.9 Anxiety disorder, unspecified; Z20.822 Contact with and (suspected) exposure to COVID-19; Z71.6 Tobacco abuse counseling; Z79.899 Other long term (current) drug therapy
CPT/HCPCS: 36415; 76700; 80048; 80076; 81001; 81003; 82077; 82272; 82947; 83690; 83735; 85014; 85018; 85025; 85027; 85610; 86704; 86706; 86709; 86803; 87340; 87635; 88304; 88305; 88342; 93005; 96361; 96365; 96366; 96375; 99024; 99285; J2250; J2405; J2560; J3010; J3475

== ENCOUNTER → 2021-06-11 13:25 | Outpatient (BNVA) | payer OTHER, SELFPAY | PROVIDERS: PCP Family Medicine; Referring Provider Family Medicine; Visit Provider Surgery | DX: Z48.815 Encounter for surgical aftercare following surgery on the digestive system (principal); Z98.890 Other specified postprocedural states; Z87.19 Personal history of other diseases of the digestive system; F17.210 Nicotine dependence, cigarettes, uncomplicated | CPT/HCPCS: 99212 ==

== ENCOUNTER 2021-06-16 19:07 | Inpatient (IN) | payer OTHER, SELFPAY ==
--- NOTE | 2021-06-16 | ECG_ITS ---
Test Reason : WEAKNESS Blood Pressure : / mmHG Vent. Rate : 078 BPM Atrial Rate : 078 BPM P-R Int : 146 ms QRS Dur : 102 ms QT Int : 420 ms P-R-T Axes : 019 044 037 degrees QTc Int : 478 ms Normal sinus rhythm Mild QT prolongation Otherwise normal EKG When compared with ECG of 26-MAY-2021 16:45, No significant change was found Referred By: Iris Pavon Electronically Signed By:HECTOR ACEVES
--- NOTE | ~2021-06-16 | CT_ITS ---
EXAMINATION: CT ABDOMEN AND PELVIS WITHOUT CONTRAST CLINICAL INFORMATION: Lower abdominal pain. Diarrhea. COMPARISON: Abdominal ultrasound dated 05/26/2021. TECHNIQUE: Multidetector volumetric imaging was performed from the superior aspect of the liver through the pubic symphysis. Sagittal and coronal reformatted images were obtained on the technologist's workstation. This CT examination was performed using dose optimization techniques as appropriate, variously including the following: *Automated exposure control *Adjustment of mA and/or kV according to patient size (this includes techniques or standardized protocols for targeted exams where dose is matched to indication/reason for exam; i.e. extremities or head) *Use of iterative reconstruction technique DLP: 560 mGy-cm FINDINGS: LUNG BASES: The visualized lung bases are unremarkable. LIVER, GALLBLADDER, AND BILIARY TREE: Increased hepatic size with diffuse hypoattenuation, consistent with steatosis. Normal hepatic contour. No focal hepatic lesion or biliary ductal dilatation is present. Cholelithiasis without gallbladder wall thickening or pericholecystic free fluid to suggest acute cholecystitis. PANCREAS: Unremarkable. SPLEEN: Unremarkable. ADRENAL GLANDS: Unremarkable. KIDNEYS AND URETERS: The kidneys are normal in size, shape, and attenuation. No hydronephrosis, hydroureter, or calculi seen. No perinephric stranding. BLADDER: Unremarkable. GASTROINTESTINAL TRACT: The left lower quadrant distal descending colon is slightly nondistended with circumferential wall thickening and minimal adjacent inflammatory change which could represent very early colitis. No evidence of perforation or abscess formation. No small or large bowel obstruction. Unremarkable appendix. PERITONEAL CAVITY: No intra-abdominal free air or free fluid. No intra-abdominal mass or organized fluid collection/abscess formation. ABDOMINAL WALL: No significant hernia is appreciated. LYMPH NODES: Normal. VASCULAR: Atherosclerotic calcifications. No abnormal aortic dilatation. PELVIC VISCERA: Mild prostatomegaly with calcifications. OSSEOUS STRUCTURES: Unremarkable. CT/CT abdomen pelvis wo con IMPRESSION: 1. Mild wall thickening of the distal descending colon with minimal adjacent fat stranding which could represent very early colitis. No evidence of perforation or abscess formation. No small or large bowel structure. Unremarkable appendix. 2. Hepatomegaly and hepatic steatosis. 3. Cholelithiasis without evidence of acute cholecystitis. 4. No intra-abdominal mass, lymphadenopathy, or ascites. Fleischner guidelines were followed.
[2021-06-16 19:21] VITALS: BP 97/58; PULSE 83; RESP 17; TEMP 36.9; O2SAT 95; BMI 28.2
--- NOTE | 2021-06-16 19:27 | ED.GIBLEED ---
HPI - GI Bleed General Chief complaint: Abdominal Pain Stated complaint: weakness Time Seen by Provider: 06/16/21 19:22 Source: patient and old records reviewed Mode of arrival: EMS Limitations: no limitations History of Present Illness HPI Narrative: 65 yo male with recent admission for acute blood anemia due to hemorrhoid bleed s/p hemorrhoidectomy DC on 05/30 he also has hx of ETOH abuse last drink 3 days ago but denies feeling shaky or having cravings, he comes today with c/o feeling weak, abdominal cramping, painful urination, 3 bouts of brown nonbloody stools a day he states very much they are brown and not black he takes no blood thinners and no NSAIDs. He feels that when he gets up at night to urinate he notes he feels like he is lightheaded and weak and falls asleep so quickly and he is worried he might be passing out. MD complaint: other (brown stool, weakness. ) Onset (ago): day(s) (3) Pain Consistency: constant Severity: moderate Relieving factors: rest Exacerbating factors: other (standing up and urinating) Context: history of GI bleed (hemorrhoid bleed recently) Associated symptoms: nausea, loss of appetite, malaise and weakness Treatments Prior to Arrival: none Related Data Home Medications Medication Instructions Recorded Confirmed atorvastatin 80 mg tablet 1 tab PO DAILY 06/07/20 05/26/21 lansoprazole 30 mg capsule,delayed 1 cap PO DAILY 06/07/20 05/26/21 release lisinopril 40 mg tablet 1 tab PO DAILY 06/07/20 05/26/21 pyridoxine (vitamin B6) 50 mg 50 mg PO DAILY 11/28/20 05/26/21 tablet docusate sodium 100 mg capsule 100 mg PO BID 06/07/21 Previous Rx's Medication Instructions Recorded empagliflozin 12.5 mg-metformin ER 2 tab PO DAILY 30 Days #60 ea 08/18/20 1,000 mg tablet,extended rel 24 hr (Synjardy XR) escitalopram oxalate 20 mg tablet 20 mg PO DAILY 90 Days #90 tab 08/21/20 folic acid 1 mg tablet 1 mg PO DAILY 90 Days #90 tab 08/21/20 thiamine HCl (vitamin B1) 100 mg 100 mg PO DAILY 90 Days #90 tab 08/21/20 tablet alpha lipoic acid 600 mg capsule 600 mg PO DAILY 30 Days #30 cap 01/29/21 naltrexone 50 mg tablet 50 mg PO DAILY 90 Days #90 tab 02/27/21 hydrocortisone 2.5 % topical cream 1 appl [place] BID-QID PRN #30 g 03/13/21 with perineal applicator (Proctosol HC) methylcellulose (laxative) 500 mg 500 mg PO DAILY #90 tab 04/10/21 tablet (Citrucel) sennosides 8.6 mg tablet (Natural 8.6 mg PO BEDTIME #90 tab 04/10/21 Senna Laxative) gabapentin 300 mg capsule 300 mg PO TID 90 Days #270 cap 05/01/21 magnesium oxide 400 mg (241.3 mg 800 mg PO DAILY #60 tab 05/30/21 magnesium) tablet oxycodone 5 mg tablet 5 mg PO Q4H PRN #18 tab 05/30/21 oxycodone 5 mg tablet 5 mg PO Q4H PRN #20 tab 06/05/21 tramadol 50 mg tablet 50 mg PO TID PRN #15 tab 06/11/21 Allergies Allergy/AdvReac Type Severity Reaction Status Date / Time niacin [NIACIN] AdvReac Mild RED FLUSH, Verified 05/04/21 15:02 SHAKING Review of Systems Review of Systems: Constitutional : No Weight loss, No Fever, No Chills ENT/Mouth : No sore throat, No Rhinorrhea Eyes: No Swelling, No Redness Cardiovascular : No Chest Pain, No SOB, NoEdema Respiratory : No Cough, No Sputum, No Wheezing Gastrointestinal : Positive Nausea, no Vomiting, no Diarrhea, positive abdominal Pain, No Hematochezia, No Melena Genitourinary : pos Dysuria, pos Urinary Frequency, No Hematuria, No Urgency Musculoskeletal : No joint pain, No Myalgias, No Joint Swelling Skin : No Skin Lesions, No rash Neuro : pos Weakness, No Numbness, No Dizziness, No Headache Psych : No Anxiety/Panic, No Depression Heme/Lymph: No Bruising, No Lymphadenopathy Endocrine : No Polyuria, No Polydipsia All other systems reviewed and are negative. [facility] Past Medical History Attestation statement: The following information was validated with the patient. Medical History Alcohol abuse Anxiety Bleeding hemorrhoids Depression Diabetes Diabetes type 2, controlled Diabetes type 2, uncontrolled Diabetic polyneuropathy associated with type 2 diabetes mellitus Hemorrhoids without complication History of alcohol abuse Hypertension Neuropathy PVD (peripheral vascular disease) Transaminitis Surgical History H/O colonoscopy Family History Family History Mother No problems noted. Father No problems noted. Social History Social History Household Members: Family Housing: House Do you presently have visiting nurse or other home services: No Alcohol intake: current Alcohol intake frequency: 0-2 drinks per day Patient Tobacco Use Status: Current everyday Tobacco user Tobacco use type: Cigarette Cigarettes Per Day: 4 e-Cigarette/Vaping Use: Never Used Second Hand Smoke Exposure: No Advance Directives: No Advance Directives Information Provided: No service: No Current occupational status: retired Cognitive needs: No Hearing needs: No Vision needs: No Physical Exam Vital Signs: Vital Signs: Last Vital Signs Temp 98.3 F 06/16/21 21:56 Pulse 76 06/16/21 21:56 Resp 18 06/16/21 21:56 BP 106/67 06/16/21 21:56 Pulse Ox 97 06/16/21 21:56 BMI result Body Mass Index 28.2 Appearance: Alert. Oriented X3. No acute distress. Eyes: Pupils equal, round and reactive to light. ENT: Pharynx normal. Neck: Normal inspection. Neck supple. CVS: Normal heart rate and rhythm. Pulses normal. Respiratory: No respiratory distress. Breath sounds normal. Abdomen: Soft and no tenderness to palpation on exam no rebound or guarding. Rectal: appears normal, brown stool Skin: Skin warm and dry. pale skin color. Normal skin turgor. Extremities: No lower extremity edema. No calf ttp Neuro: Oriented X 3. No motor deficit. No sensory deficit. Course Course Course Narrative: H/H stable repleting K given diarrhea and abdominal pain CT scan possible colitis infection suspected 847pm - IV ceftriaxone and flagyl (low K avoid levofloxacin) + orthostatics by HR went from 60 to 100 with standing, 2L of IVF ordered will admit for hydration, K repletion, IV antibiotics MDM - GI Bleed MDM Narrative Medical decision making narrative: 65 yo male with hx of ETOH abuse, hypomagnesemia, DM, wheezing, HLD, hemmorrhoid bleeding with acute blood loss anemia, HTN, recent admit for acute blood loss comes in with multiple complaints recently including increased urination, nausea, poor PO intake, intermittent lower abdominal pain, weakness when standing at night. He denies black or bloody stools at this time will obtain labs, lactic acid, UA, guiac study, EKG, IVF x 2L, protonix, IV magnesium/thiamine, ETOH level. Dispo per results and findings. Possible UTI/colitis/dehydration. Lab Data Result diagrams: 06/16/21 19:48 06/16/21 19:48 Labs: Lab Results 06/16/21 06/16/21 06/16/21 Range/Units 19:47 19:48 19:48 WBC 5.4 (4.8-10.8) X10*3/uL RBC 3.48 L D (4.60-5.80) X10*6/uL Hgb 11.5 L (14.0-18.0) g/dl Hct 34.7 L (42.0-52.0) % MCV 99.7 H (80.0-98.0) fL MCH 33.0 (27.0-33.0) pg MCHC 33.1 (31.0-36.0) g/dl RDW 17.0 H (11.0-16.0) % Plt Count 212 D (160-400) X10*3/uL MPV 10.1 (9.4-12.4) fL Immature Gran % (Auto) 0.4 (0.0-0.4) % Neut % (Auto) 65.2 (45-73) % Lymph % (Auto) 19.2 L (20-40) % Garland % (Auto) 14.2 H (2-11) % Eos % (Auto) 0.4 (0-4) % Baso % (Auto) 0.6 (0-2) % Lymph # (Auto) 1.0 L (1.2-4.9) X10*3/uL Garland # (Auto) 0.8 (0.1-1.2) X10*3/uL Eos # (Auto) 0.0 (0.0-0.4) X10*3/uL Baso # (Auto) 0.0 (0.0-0.2) X10*3/uL Abs Immat Gran (auto) 0.02 (0.00-0.03) X10*3/uL Absolute Neuts (auto) 3.5 (2.0-8.3) x10*3/uL Absolute Nucleated RBC 0.000 (0.0-0.012) X10*3/uL Nucleated RBC % (auto) 0.0 (0.0-0.2) /100WBC PT 13.2 H (9.9-13.0) SEC INR 1.2 H (0.9-1.1) APTT 34.9 (24.1-38.0) SEC Sodium (135-145) mmol/L Potassium (3.3-5.1) mmol/L Chloride (96-108) mmol/L Carbon Dioxide (22-29) mmol/L Anion Gap (12-20) BUN (9-16) mg/dL Creatinine (0.5-1.4) mg/dL Estim Creat Clear Calc Estimated GFR Random Glucose (60-115) mg/dL Lactic Acid (0.5-2.0) mmol/L Calcium (8.4-10.2) mg/dL Magnesium (1.6-2.6) mg/dL Total Bilirubin (0.0-1.0) mg/dL AST (5-37) U/L ALT (0-40) U/L Alkaline Phosphatase (39-117) U/L Ammonia (13-55) umol/L Troponin I High Sens (<3.5-35.0) ng/L Total Protein (6.5-8.0) g/dL Albumin (3.5-5.0) g/dL Lipase (8-78) U/L Stool Occult Blood (NEGATIVE) Ethyl Alcohol mg/dL Blood Type Antibody Screen 06/16/21 06/16/21 06/16/21 Range/Units 19:48 19:48 19:48 WBC (4.8-10.8) X10*3/uL RBC (4.60-5.80) X10*6/uL Hgb (14.0-18.0) g/dl Hct (42.0-52.0) % MCV (80.0-98.0) fL MCH (27.0-33.0) pg MCHC (31.0-36.0) g/dl RDW (11.0-16.0) % Plt Count (160-400) X10*3/uL MPV (9.4-12.4) fL Immature Gran % (Auto) (0.0-0.4) % Neut % (Auto) (45-73) % Lymph % (Auto) (20-40) % Garland % (Auto) (2-11) % Eos % (Auto) (0-4) % Baso % (Auto) (0-2) % Lymph # (Auto) (1.2-4.9) X10*3/uL Garland # (Auto) (0.1-1.2) X10*3/uL Eos # (Auto) (0.0-0.4) X10*3/uL Baso # (Auto) (0.0-0.2) X10*3/uL Abs Immat Gran (auto) (0.00-0.03) X10*3/uL Absolute Neuts (auto) (2.0-8.3) x10*3/uL Absolute Nucleated RBC (0.0-0.012) X10*3/uL Nucleated RBC % (auto) (0.0-0.2) /100WBC PT (9.9-13.0) SEC INR (0.9-1.1) APTT (24.1-38.0) SEC Sodium 142 (135-145) mmol/L Potassium 2.8 L (3.3-5.1) mmol/L Chloride 89 L (96-108) mmol/L Carbon Dioxide 24 (22-29) mmol/L Anion Gap 32 H (12-20) BUN 4 L (9-16) mg/dL Creatinine 1.23 (0.5-1.4) mg/dL Estim Creat Clear Calc 60.8 Estimated GFR 59 Random Glucose 122 H (60-115) mg/dL Lactic Acid 0.9 (0.5-2.0) mmol/L Calcium 9.0 D (8.4-10.2) mg/dL Magnesium 1.6 (1.6-2.6) mg/dL Total Bilirubin 1.8 H (0.0-1.0) mg/dL AST 207 H (5-37) U/L ALT 93 H (0-40) U/L Alkaline Phosphatase 288 H D (39-117) U/L Ammonia (13-55) umol/L Troponin I High Sens (<3.5-35.0) ng/L Total Protein 6.3 L D (6.5-8.0) g/dL Albumin 3.5 D (3.5-5.0) g/dL Lipase 41 (8-78) U/L Stool Occult Blood (NEGATIVE) Ethyl Alcohol mg/dL Blood Type A Positive Antibody Screen NEGATIVE 06/16/21 06/16/21 06/16/21 Range/Units 19:48 19:48 19:48 WBC (4.8-10.8) X10*3/uL RBC (4.60-5.80) X10*6/uL Hgb (14.0-18.0) g/dl Hct (42.0-52.0) % MCV (80.0-98.0) fL MCH (27.0-33.0) pg MCHC (31.0-36.0) g/dl RDW (11.0-16.0) % Plt Count (160-400) X10*3/uL MPV (9.4-12.4) fL Immature Gran % (Auto) (0.0-0.4) % Neut % (Auto) (45-73) % Lymph % (Auto) (20-40) % Garland % (Auto) (2-11) % Eos % (Auto) (0-4) % Baso % (Auto) (0-2) % Lymph # (Auto) (1.2-4.9) X10*3/uL Garland # (Auto) (0.1-1.2) X10*3/uL Eos # (Auto) (0.0-0.4) X10*3/uL Baso # (Auto) (0.0-0.2) X10*3/uL Abs Immat Gran (auto) (0.00-0.03) X10*3/uL Absolute Neuts (auto) (2.0-8.3) x10*3/uL Absolute Nucleated RBC (0.0-0.012) X10*3/uL Nucleated RBC % (auto) (0.0-0.2) /100WBC PT (9.9-13.0) SEC INR (0.9-1.1) APTT (24.1-38.0) SEC Sodium (135-145) mmol/L Potassium (3.3-5.1) mmol/L Chloride (96-108) mmol/L Carbon Dioxide (22-29) mmol/L Anion Gap (12-20) BUN (9-16) mg/dL Creatinine (0.5-1.4) mg/dL Estim Creat Clear Calc Estimated GFR Random Glucose (60-115) mg/dL Lactic Acid (0.5-2.0) mmol/L Calcium (8.4-10.2) mg/dL Magnesium (1.6-2.6) mg/dL Total Bilirubin (0.0-1.0) mg/dL AST (5-37) U/L ALT (0-40) U/L Alkaline Phosphatase (39-117) U/L Ammonia 44 (13-55) umol/L Troponin I High Sens 10.9 (<3.5-35.0) ng/L Total Protein (6.5-8.0) g/dL Albumin (3.5-5.0) g/dL Lipase (8-78) U/L Stool Occult Blood (NEGATIVE) Ethyl Alcohol < 10 mg/dL Blood Type Antibody Screen 06/16/21 Range/Units 19:48 WBC (4.8-10.8) X10*3/uL RBC (4.60-5.80) X10*6/uL Hgb (14.0-18.0) g/dl Hct (42.0-52.0) % MCV (80.0-98.0) fL MCH (27.0-33.0) pg MCHC (31.0-36.0) g/dl RDW (11.0-16.0) % Plt Count (160-400) X10*3/uL MPV (9.4-12.4) fL Immature Gran % (Auto) (0.0-0.4) % Neut % (Auto) (45-73) % Lymph % (Auto) (20-40) % Garland % (Auto) (2-11) % Eos % (Auto) (0-4) % Baso % (Auto) (0-2) % Lymph # (Auto) (1.2-4.9) X10*3/uL Garland # (Auto) (0.1-1.2) X10*3/uL Eos # (Auto) (0.0-0.4) X10*3/uL Baso # (Auto) (0.0-0.2) X10*3/uL Abs Immat Gran (auto) (0.00-0.03) X10*3/uL Absolute Neuts (auto) (2.0-8.3) x10*3/uL Absolute Nucleated RBC (0.0-0.012) X10*3/uL Nucleated RBC % (auto) (0.0-0.2) /100WBC PT (9.9-13.0) SEC INR (0.9-1.1) APTT (24.1-38.0) SEC Sodium (135-145) mmol/L Potassium (3.3-5.1) mmol/L Chloride (96-108) mmol/L Carbon Dioxide (22-29) mmol/L Anion Gap (12-20) BUN (9-16) mg/dL Creatinine (0.5-1.4) mg/dL Estim Creat Clear Calc Estimated GFR Random Glucose (60-115) mg/dL Lactic Acid (0.5-2.0) mmol/L Calcium (8.4-10.2) mg/dL Magnesium (1.6-2.6) mg/dL Total Bilirubin (0.0-1.0) mg/dL AST (5-37) U/L ALT (0-40) U/L Alkaline Phosphatase (39-117) U/L Ammonia (13-55) umol/L Troponin I High Sens (<3.5-35.0) ng/L Total Protein (6.5-8.0) g/dL Albumin (3.5-5.0) g/dL Lipase (8-78) U/L Stool Occult Blood POSITIVE (NEGATIVE) Ethyl Alcohol mg/dL Blood Type Antibody Screen ECG Data Attestation: I personally reviewed and interpreted this ECG as follows: ECG interpretation date: 06/16/21 ECG interpretation time: 19:31 Interpretation: Rate: 78 Rhythm: NSR [place]: normal Normal P waves. Normal JORGE ALBERTO. Normal QRS complex. ST T wave : normal no MICHELLE qTC: normal prior studies: no acute ischemia The study has been interpreted contemporaneously by me. . Discharge Plan Discharge Clinical Impression: Acute hypokalemia, Colitis, Elevated liver function tests Abdominal pain Qualifiers: Abdominal location: lower abdomen, unspecified Qualified Code(s): R10.30 - Lower abdominal pain, unspecified Patient Disposition: Admitted As Inpatient
[2021-06-16] MEDS: 0.9 % Sodium Chloride 1,000 ML 999 ML IV ×2 (19:53→20:55)
[2021-06-16 19:55] LABS: MANUAL DIFF FLAG NO
[2021-06-16 19:56] LABS: Basophils Percent Auto 0.6 % (0-2); Eosinophils Percent Auto 0.4 % (0-4); Hematocrit 34.7 % (42.0-52.0); Hemoglobin 11.5 g/dl (14.0-18.0); Imm Gran Abs Auto 0.02 X10*3/uL (0.00-0.03); Imm Gran Pct Auto 0.4 % (0.0-0.4); Lymphocytes Percent Auto 19.2 % (20-40); Mean Corpuscular HGB Conc 33.1 g/dl (31.0-36.0); Mean Corpuscular Volume 99.7 fL (80.0-98.0); Mean Platelet Volume 10.1 fL (9.4-12.4); Monocytes Absolute Auto 0.8 X10*3/uL (0.1-1.2); Monocytes Percent Auto 14.2 % (2-11); Neutrophils Absolute Auto 3.5 x10*3/uL (2.0-8.3); Neutrophils Percent Auto 65.2 % (45-73); Platelet Count 212 X10*3/uL (160-400); Red Blood Count 3.48 X10*6/uL (4.60-5.80); White Blood Count 5.4 X10*3/uL (4.8-10.8)
[2021-06-16 19:58] LABS: OBS Int Ctl Valid YES; OBS1 POSITIVE (NEGATIVE)
[2021-06-16 20:03] LABS: INTERNATIONAL NORM RATIO 1.2 (0.9-1.1); Prothrombin Time 13.2 SEC (9.9-13.0)
[2021-06-16 20:05] LABS: Ammonia 44 umol/L (13-55)
[2021-06-16 20:06] LABS: Partial Thromboplastin Time 34.9 SEC (24.1-38.0)
[2021-06-16 20:07] LABS: Lactic Acid 0.9 mmol/L (0.5-2.0)
[2021-06-16 20:10] LABS: Ethanol < 10 mg/dL
[2021-06-16 20:15] LABS: Alanine Aminotransferase 93 U/L (0-40); Albumin Level 3.5 g/dL (3.5-5.0); Alkaline Phosphatase 288 U/L (39-117); Anion Gap 32 (12-20); Aspartate Amino Transferase 207 U/L (5-37); Bilirubin Total 1.8 mg/dL (0.0-1.0); Blood Urea Nitrogen 4 mg/dL (9-16); Carbon Dioxide 24 mmol/L (22-29); Chloride 89 mmol/L (96-108); Creatinine Clr Calc Pharmacy 60.8; Estimated Glomerular Filt Rate 59; Glucose Random 122 mg/dL (60-115); Lipase 41 U/L (8-78); Magnesium 1.6 mg/dL (1.6-2.6); Potassium 2.8 mmol/L (3.3-5.1); Sodium 142 mmol/L (135-145); Total Protein 6.3 g/dL (6.5-8.0)
[2021-06-16 20:19] LABS: Troponin-I High Sensitivity 10.9 ng/L (<3.5-35.0)
[2021-06-16] MEDS: Magnesium Sulfate/H2O 2 GM/50 ML PIGGYBACK IV (20:54)
[2021-06-16] MEDS: ondansetron HCL 4 MG/2 ML VIAL IVPUSH (20:54)
[2021-06-16] MEDS: Pantoprazole Sodium 40 MG/10 ML VIAL IVPUSH (20:54)
[2021-06-16] MEDS: Potassium Chloride ER 20 MEQ TAB.ER.PRT 40 MEQ PO (20:55)
[2021-06-16] MEDS: Thiamine HCL 200 MG in 0.9 % Sodium Chloride 100 ML 204 MG IV (20:58)
[2021-06-16] MEDS: Potassium Chloride/H20 10 MEQ/100 ML PIGGYBACK 100 MEQ IV (21:23)
[2021-06-16 21:39] VITALS: BP 106/65; PULSE 65
[2021-06-16 21:40] VITALS: BP 100/65; BP 106/66; PULSE 100; PULSE 90
[2021-06-16 21:56] VITALS: BP 106/67; PULSE 76; RESP 18; TEMP 36.8; O2SAT 97
--- NOTE | 2021-06-16 22:26 | PC.NURSE ---
I assumed nursing care of Laron on his arrival to bed 15 via EMS from home. he presents for evaluation of abdominal pain (pain free on arrival, he is unable to localize the pain when I assessed him), decreased PO intake because I feel like it's going to come right back up , and persistent nausea. He also states that his stool has been dark but denies the presence of blood - to his knowledge - in his stool. He is alert, oriented x 3, calm and cooperative, makes eye contact with Rn and is capable of verbalizing his needs adequately. Respirations are non-labored, speech clear and appropriate, no cyanosis, he speaks in full sentences, room air sat's 95% or better. On arrival to E.D. He is pain free, + nausea without vomiting. He has taken PO fluids and meds without difficulty. he has ambulated to the bathroom independently and with steady gait and provided a UA without difficulty. Dark galdino urine noted. Pt placed on monitoring and evaluation advisor while IV Potassium infusing - NSR noted on bedside monitor. Pt is TBADM and verbalizes an understanding of this. Will continue to monitor Laron.
[2021-06-16 22:30] LABS: Appearance Urine CLEAR; Color Urine YELLOW; Glucose Urine UA 500 MG/DL (NEG); Leukocyte Esterase Urine NEG (NEG); Nitrite Urine NEG (NEG); UACC Culture Trigger NO; Urine Blood NEG (NEG); Urine Ketones >=80 MG/DL (NEG); Urine Protein 1+ MG/DL (NEG-TRACE)
[2021-06-16] MEDS: cefTRIAXone sodium 1 GM in 0.9 % Sodium Chloride 50 ML IV (22:50)
[2021-06-16] MEDS: metroNIDAZOLE/NS 500 MG/100 ML PIGGYBACK 100 MG IV (22:50)
[2021-06-16 22:51] LABS: Amorphous Sediment Urine 1+ /LPF; Hyaline Casts Urine 0-2 /LPF; Mucus Urine TRACE /LPF; Squamous Epithelial Cell Urine 2+ /LPF; WBC Urine 0-2 /HPF (0-4)
--- NOTE | 2021-06-16 23:06 | PM.IMHP ---
History of Present Illness Date of Service: 06/16/21 Chief Complaint: abdominal pain 65-year-old male with a past medical history of hypertension, hyperlipidemia, diabetes, history of hemorrhoids, recent history of GI bleed hemorrhoids status post hemorrhoidectomy a alcohol abuse presented to the hospital with a chief complaint of abdominal pain. Patient mentions that he has been having abdominal discomfort going on for the past 2 days, diffuse in nature, crampy, no change in abdominal pain with bowel movements; denies any diarrhea. Has nausea. Denies any concerns for food poisoning. Patient denies any chest pain palpitations lightheadedness or dizziness. Denies any fever chills cough. Denies any urinary symptoms. Review of all other systems is negative except mentioned above ER course: Per ER team patient noted to have diffuse abdominal tenderness; CT abdomen showed mild colitis; given antibiotics. Also noted to have potassium 2.8. No EKG changes. Being repleted. Admitted for further management. ER team also mentioned that patient currently did not show any active signs of withdrawal. Also mentioned that patient had brown stool in the rectal vault and guaiac positive. PMFSH Medical History Alcohol abuse Anxiety Bleeding hemorrhoids Depression Diabetes Diabetes type 2, controlled Diabetes type 2, uncontrolled Diabetic polyneuropathy associated with type 2 diabetes mellitus Hemorrhoids without complication History of alcohol abuse Hypertension Neuropathy PVD (peripheral vascular disease) Transaminitis Family History Mother No problems noted. Father No problems noted. Surgical History H/O colonoscopy Social History Household Members: Family Housing: House Do you presently have visiting nurse or other home services: No Alcohol intake: former Patient Tobacco Use Status: Current everyday Tobacco user Tobacco use type: Cigarette Cigarettes Per Day: 4 Years Smoked: 50 e-Cigarette/Vaping Use: Never Used Second Hand Smoke Exposure: Yes service: No Current occupational status: retired Cognitive needs: No Hearing needs: No Vision needs: No Meds Allergies Allergy/AdvReac Type Severity Reaction Status Date / Time niacin [NIACIN] AdvReac Mild RED FLUSH, Verified 06/27/21 11:55 SHAKING Active Medications: Current Medications Acetaminophen (Acetaminophen 325 Mg Tablet) 650 mg PO Q6H PRN PRN Reason: Pain, Mild (Pain Scale 1-3) Dextrose (Dextrose 50 % 25 Gm/50 Ml Vial) 25 gm IVPUSH Q15M PRN; Protocol PRN Reason: per Hypoglycemia Standing Ord. Enoxaparin Sodium (Enoxaparin Sodium 40 Mg/0.4 Ml Syringe) 40 mg SUBCUT Q24H ADAM Glucose (Glucose Gel 15 Gm Gel..Gram.) 15 gm PO Q15M PRN; Protocol PRN Reason: per Hypoglycemia Standing Ord. Ceftriaxone Sodium 1 gm/ (Sodium Chloride) 50 mls @ 100 mls/hr IV Q24H ADAM Metronidazole (Flagyl) 500 mg in 100 mls @ 100 mls/hr IV Q8H [facility] Insulin Human Lispro (Insulin Lispro 100 Unit/Ml 3 Ml Vial) 0 unit SUBCUT QIDACHS [facility]; Protocol Melatonin (Melatonin 3 Mg Tablet) 6 mg PO BEDTIME PRN PRN Reason: Insomnia Senna (Sennosides 8.6 Mg Tablet) 17.2 mg PO BEDTIME PRN PRN Reason: Constipation Sodium Chloride (0.9 % Sodium Chloride Flush 3 Ml Syringe) 3 ml IVFLUSH QSHIFT [facility] Home Medications Medication Instructions Recorded Confirmed Last Taken Type atorvastatin 80 mg tablet 1 tab PO DAILY 06/07/20 06/16/21 06/07/20 History lansoprazole 30 mg capsule,delayed 1 cap PO DAILY 06/07/20 06/16/21 06/07/20 History release lisinopril 40 mg tablet 1 tab PO DAILY 06/07/20 06/17/21 06/07/20 History pyridoxine (vitamin B6) 50 mg 50 mg PO DAILY 11/28/20 06/17/21 Unknown History tablet alpha lipoic acid 100 mg capsule 600 mg PO DAILY 06/17/21 06/17/21 Unknown History Physical Exam Vital Signs and Narrative: Vital Signs: Last Vital Signs Temp 98.3 F 06/16/21 21:56 Pulse 76 06/16/21 21:56 Resp 18 06/16/21 21:56 BP 106/67 06/16/21 21:56 Pulse Ox 97 06/16/21 21:56 BMI result Body Mass Index 28.2 Gen: Appears be in no acute distress HEENT: NCAT, Moist mucosa. Pulmonary: Vesicular breath sounds, fair air entry CVS: Normal S1-S2 Abdomen: BS+, Soft, Mildly tender diffusely; no guarding no rigidity Extremities: Warm well perfused Neuro: Alert and awake. Results Labs CBC and Chem 7: 06/21/21 05:40 06/21/21 05:40 Labs: Laboratory Results - last 24 hr 06/16/21 06/16/21 06/16/21 19:47 19:48 19:48 MCV 99.7 H MCH 33.0 MCHC 33.1 RDW 17.0 H Plt Count 212 D MPV 10.1 Immature Gran % (Auto) 0.4 Neut % (Auto) 65.2 Lymph % (Auto) 19.2 L [place] % (Auto) 14.2 H Eos % (Auto) 0.4 Baso % (Auto) 0.6 Lymph # (Auto) 1.0 L [place] # (Auto) 0.8 Eos # (Auto) 0.0 Baso # (Auto) 0.0 Abs Immat Gran (auto) 0.02 Absolute Neuts (auto) 3.5 Absolute Nucleated RBC 0.000 Nucleated RBC % (auto) 0.0 PT 13.2 H INR 1.2 H APTT 34.9 Anion Gap Estim Creat Clear Calc Estimated GFR Random Glucose Lactic Acid Calcium Magnesium Total Bilirubin AST ALT Alkaline Phosphatase Ammonia Total Protein Albumin Lipase Urine Color Urine Appearance Urine pH Ur Specific [place] Urine Protein Urine Glucose (UA) Urine Ketones Urine Blood Urine Nitrite Ur Leukocyte Esterase Urine RBC Urine WBC Ur Squamous Epith Cells Amorphous Sediment Urine Bacteria Hyaline Casts Urine Mucus Stool Occult Blood Ethyl Alcohol Blood Type Antibody Screen 06/16/21 06/16/21 06/16/21 19:48 19:48 19:48 MCV MCH MCHC RDW Plt Count MPV Immature Gran % (Auto) Neut % (Auto) Lymph % (Auto) [place] % (Auto) Eos % (Auto) Baso % (Auto) Lymph # (Auto) [place] # (Auto) Eos # (Auto) Baso # (Auto) Abs Immat Gran (auto) Absolute Neuts (auto) Absolute Nucleated RBC Nucleated RBC % (auto) PT INR APTT Anion Gap 32 H Estim Creat Clear Calc 60.8 Estimated GFR 59 Random Glucose 122 H Lactic Acid 0.9 Calcium 9.0 D Magnesium 1.6 Total Bilirubin 1.8 H AST 207 H ALT 93 H Alkaline Phosphatase 288 H D Ammonia Total Protein 6.3 L D Albumin 3.5 D Lipase 41 Urine Color Urine Appearance Urine pH Ur Specific [place] Urine Protein Urine Glucose (UA) Urine Ketones Urine Blood Urine Nitrite Ur Leukocyte Esterase Urine RBC Urine WBC Ur Squamous Epith Cells Amorphous Sediment Urine Bacteria Hyaline Casts Urine Mucus Stool Occult Blood Ethyl Alcohol Blood Type A Positive Antibody Screen NEGATIVE 06/16/21 06/16/21 06/16/21 19:48 19:48 19:48 MCV MCH MCHC RDW Plt Count MPV Immature Gran % (Auto) Neut % (Auto) Lymph % (Auto) [place] % (Auto) Eos % (Auto) Baso % (Auto) Lymph # (Auto) [place] # (Auto) Eos # (Auto) Baso # (Auto) Abs Immat Gran (auto) Absolute Neuts (auto) Absolute Nucleated RBC Nucleated RBC % (auto) PT INR APTT Anion Gap Estim Creat Clear Calc Estimated GFR Random Glucose Lactic Acid Calcium Magnesium Total Bilirubin AST ALT Alkaline Phosphatase Ammonia 44 Total Protein Albumin Lipase Urine Color Urine Appearance Urine pH Ur Specific [place] Urine Protein Urine Glucose (UA) Urine Ketones Urine Blood Urine Nitrite Ur Leukocyte Esterase Urine RBC Urine WBC Ur Squamous Epith Cells Amorphous Sediment Urine Bacteria Hyaline Casts Urine Mucus Stool Occult Blood POSITIVE Ethyl Alcohol < 10 Blood Type Antibody Screen 06/16/21 22:19 MCV MCH MCHC RDW Plt Count MPV Immature Gran % (Auto) Neut % (Auto) Lymph % (Auto) [place] % (Auto) Eos % (Auto) Baso % (Auto) Lymph # (Auto) [place] # (Auto) Eos # (Auto) Baso # (Auto) Abs Immat Gran (auto) Absolute Neuts (auto) Absolute Nucleated RBC Nucleated RBC % (auto) PT INR APTT Anion Gap Estim Creat Clear Calc Estimated GFR Random Glucose Lactic Acid Calcium Magnesium Total Bilirubin AST ALT Alkaline Phosphatase Ammonia Total Protein Albumin Lipase Urine Color YELLOW Urine Appearance CLEAR Urine pH 6.0 Ur Specific [place] 1.020 Urine Protein 1+ H Urine Glucose (UA) 500 H Urine Ketones >=80 Urine Blood NEG Urine Nitrite NEG Ur Leukocyte Esterase NEG Urine RBC 1-4 Urine WBC 0-2 Ur Squamous Epith Cells 2+ Amorphous Sediment 1+ Urine Bacteria NONE Hyaline Casts 0-2 Urine Mucus TRACE Stool Occult Blood Ethyl Alcohol Blood Type Antibody Screen Imaging Radiologist's Impressions: Impressions Abdomen/Pelvis CT 06/16/21 20:24 IMPRESSION: 1. Mild wall thickening of the distal descending colon with minimal adjacent fat stranding which could represent very early colitis. No evidence of perforation or abscess formation. No small or large bowel structure. Unremarkable appendix. 2. Hepatomegaly and hepatic steatosis. 3. Cholelithiasis without evidence of acute cholecystitis. 4. No intra-abdominal mass, lymphadenopathy, or ascites. Fleischner guidelines were followed. Assessment and Plan (1) Acute hypokalemia: Status: Acute (2) Colitis: Status: Acute (3) Diabetes mellitus with neuropathy: Status: Acute Plan 65-year-old male with a past medical history of hypertension, hyperlipidemia, diabetes, history of hemorrhoids, recent history of GI bleed hemorrhoids status post hemorrhoidectomy a alcohol abuse presented to the hospital with a chief complaint of abdominal pain. noted to have normal lipase, elevated liver enzymes, CT abdomen consistent with mild colitis. Given antibiotics. Admitted for further management. Colitis: Continue ceftriaxone and Flagyl. NPO. IV fluids. Supportive care. Hypokalemia: Repleted. No EKG changes. Repeat BMP in the morning. recent GI bleed/ guaiac positive stool: Patient has known hemorrhoids. Currently H&H stable. IV PPI. patient was recently discharged from the hospital after being admitted for bright red blood per rectum-status post colonoscopy which showed large internal hemorrhoids and colon polyps status post polypectomy; patient also had hemorrhoidectomy and ligation. General surgery follow-up Alcohol abuse: Monitor on CIWA protocol with the Ativan. Thiamine folate and multivitamins. Transaminitis: Patient had prior elevated liver enzymes; slightly more elevated currently. Likely the setting of alcohol use. MDF score 11.9. History of diabetes: Insulin sliding scale. Hold home oral hypoglycemic agents. History of diabetic neuropathy: Continue home gabapentin History of hypertension /hyperlipidemia: Continue home medications DVT prophylaxis: Lovenox Code status: Full code Quality Stroke Does the patient have a stroke diagnosis?: No VTE Prior VTE?: No VTE Risk Level:: Medical - moderate - high VTE Device Contraindication: Treatment Not Indicated VTE Drug Contraindication: N/A - Med Ordered
[2021-06-17 00:12] LABS: COVID-19 Test Negative (Negative); IDNOW Serial# 16C4AD1C
[2021-06-17] MEDS: Potassium Chloride/H20 10 MEQ/100 ML PIGGYBACK 100 MEQ IV ×5 (00:46→13:03)
[2021-06-17] MEDS: Enoxaparin Sodium 40 MG/0.4 ML SYRINGE SUBCUT ×2 (00:47→21:38)
[2021-06-17] MEDS: 0.9 % Sodium Chloride Flush 3 ML SYRINGE IVFLUSH ×2 (00:47→08:10)
[2021-06-17 05:26] VITALS: BP 96/55; PULSE 65; RESP 16; O2SAT 95
[2021-06-17] MEDS: Pantoprazole Sodium 40 MG/10 ML VIAL IVPUSH (06:48)
[2021-06-17 06:59] LABS: MANUAL DIFF FLAG NO
[2021-06-17 07:17] LABS: Glucose, Whole Blood 122 mg/dL (60-115)
[2021-06-17 07:17] LABS: Eosinophils Absolute Auto 0.1 X10*3/uL (0.0-0.4); Eosinophils Percent Auto 1.4 % (0-4); Hematocrit 31.7 % (42.0-52.0); Hemoglobin 10.4 g/dl (14.0-18.0); Imm Gran Abs Auto 0.03 X10*3/uL (0.00-0.03); Imm Gran Pct Auto 0.7 % (0.0-0.4); Lymphocytes Absolute Auto 0.9 X10*3/uL (1.2-4.9); Lymphocytes Percent Auto 22.2 % (20-40); Mean Corpuscular HGB Conc 32.8 g/dl (31.0-36.0); Mean Corpuscular Volume 100.6 fL (80.0-98.0); Mean Platelet Volume 10.9 fL (9.4-12.4); Monocytes Absolute Auto 0.5 X10*3/uL (0.1-1.2); Monocytes Percent Auto 12.4 % (2-11); Neutrophils Absolute Auto 2.6 x10*3/uL (2.0-8.3); Neutrophils Percent Auto 62.3 % (45-73); Platelet Count 180 X10*3/uL (160-400); Red Blood Count 3.15 X10*6/uL (4.60-5.80); Red Cell Distribution Width 17.2 % (11.0-16.0); White Blood Count 4.2 X10*3/uL (4.8-10.8)
[2021-06-17 07:33] LABS: Anion Gap 29 (12-20); Blood Urea Nitrogen 3 mg/dL (9-16); Calcium 8.2 mg/dL (8.4-10.2); Carbon Dioxide 21 mmol/L (22-29); Chloride 93 mmol/L (96-108); Estimated Glomerular Filt Rate > 60; Glucose Random 119 mg/dL (60-115); Potassium 2.5 mmol/L (3.3-5.1); Sodium 140 mmol/L (135-145)
[2021-06-17] MEDS: metroNIDAZOLE/NS 500 MG/100 ML PIGGYBACK 100 MG IV ×3 (07:34→21:39)
[2021-06-17 07:36] VITALS: PULSE 72; O2SAT 96
--- NOTE | 2021-06-17 07:58 | PC.NURSE ---
pt c/o 10/07 abdominal pain, offered tylenol and pt refused at this time.
[2021-06-17] MEDS: Thiamine HCL 100 MG TABLET PO (08:10)
[2021-06-17] MEDS: Multivitamin TABLET 1 TAB PO (08:10)
[2021-06-17] MEDS: Folic Acid 1 MG TABLET PO (08:10)
[2021-06-17 08:11] VITALS: BP 101/63; PULSE 71; RESP 14; TEMP 36.9; O2SAT 96
[2021-06-17 08:17] LABS: Magnesium 1.8 mg/dL (1.6-2.6)
[2021-06-17 08:43] LABS: C Reactive Protein 2.02 mg/dL (< or = 0.50)
--- NOTE | 2021-06-17 08:47 | PHA.MEDREC ---
Pharmacy Consult ? Medication Reconciliation Pharmacy has completed the medication reconciliation. Patient has no filled atorvastatin, lansoprazole, mag ox and vitamin b6 since March. Called with to confirm if patient has been taking them at. Patient dose have partial full bottle at home, therefore patient is non adherent to his medications. Silvia Dalton, PharmD
[2021-06-17] MEDS: Potassium Chloride Packet 20 MEQ PACKET 40 MEQ PO (09:51)
[2021-06-17] MEDS: Acetaminophen 325 MG TABLET 650 MG PO (10:01)
--- NOTE | 2021-06-17 11:36 | PC.NURSE ---
Pt arrives from the main ED. c/o abdominal pain PRN tylenol given with positive effect pt sleeping now. Pt resting in the bed, ambulates to the bathroom independently. IV potassium started. Pt a/o. pt with BM today. [place] and belongings within reach.
--- NOTE | 2021-06-17 12:26 | HO.PM.IMPN ---
Subjective Subjective Date of Service: 06/17/21 Interval History: C/o abd discomfort NO diarrhea No hx EtOH withdrawal Review of Systems Review of Systems: Yes all other systems are reviewed and are negative Physical Exam Vital Signs: Vital Signs: Last Vital Signs Temp 98.5 F 06/17/21 08:11 Pulse 71 06/17/21 08:11 Resp 14 06/17/21 08:11 BP 101/63 06/17/21 08:11 Pulse Ox 96 06/17/21 08:11 BMI result Body Mass Index 28.2 Gen: in no acute distress HEENT: sclera anicteric, moist mucus membranes Neck: supple Lungs: clear to auscultation bilaterally Heart: regular rate and rhythm, no murmurs Abd: soft, diffuse tenderness without rebound/guarding Ext: no edema Skin: warm/well-perfused Neuro: alert and oriented x3, no focal findings Psych: appropriate affect Objective Data Active Medications Acetaminophen (Acetaminophen 325 Mg Tablet) 650 mg PO Q6H PRN PRN Reason: Pain, Mild (Pain Scale 1-3) Last Admin: 06/17/21 10:01 Dose: 650 mg Documented by: CARLYN Dextrose (Dextrose 50 % 25 Gm/50 Ml Vial) 25 gm IVPUSH Q15M PRN; Protocol PRN Reason: per Hypoglycemia Standing Ord. Enoxaparin Sodium (Enoxaparin Sodium 40 Mg/0.4 Ml Syringe) 40 mg SUBCUT Q24H [facility] Last Admin: 06/17/21 00:47 Dose: 40 mg Documented by: NATHALIA Folic Acid (Folic Acid 1 Mg Tablet) 1 mg PO DAILY [facility] Stop: 06/20/21 08:59 Last Admin: 06/17/21 08:10 Dose: 1 mg Documented by: MILY Glucose (Glucose Gel 15 Gm Gel..Gram.) 15 gm PO Q15M PRN; Protocol PRN Reason: per Hypoglycemia Standing Ord. Ceftriaxone Sodium 1 gm/ (Sodium Chloride) 50 mls @ 100 mls/hr IV Q24H [facility] Metronidazole (Flagyl) 500 mg in 100 mls @ 100 mls/hr IV Q8H [facility] Last Infusion: 06/17/21 08:34 Dose: 0 mls/hr Documented by: CARLYN Insulin Human Lispro (Insulin Lispro 100 Unit/Ml 3 Ml Vial) 0 unit SUBCUT QIDACHS [facility]; Protocol Last Admin: 06/17/21 12:25 Dose: Not Given Documented by: ROLO-WISNK Non-Admin Reason: No Insulin Coverage Lorazepam (Lorazepam 1 Mg Tablet) 1 mg PO Q4H PRN PRN Reason: Breakthrough alcohol withdrawa Stop: 06/20/21 23:11 Melatonin (Melatonin 3 Mg Tablet) 6 mg PO BEDTIME PRN PRN Reason: Insomnia Multivitamins/Vitamin C (Multivitamin Tablet) 1 tab PO DAILY [facility] Stop: 06/20/21 08:59 Last Admin: 06/17/21 08:10 Dose: 1 tab Documented by: MILY Pantoprazole Sodium (Pantoprazole Sodium 40 Mg/10 Ml Vial) 40 mg IVPUSH DAILY@0630 [facility] Last Admin: 06/17/21 06:48 Dose: 40 mg Documented by: KELLEY Senna (Sennosides 8.6 Mg Tablet) 17.2 mg PO BEDTIME PRN PRN Reason: Constipation Sodium Chloride (0.9 % Sodium Chloride Flush 3 Ml Syringe) 3 ml IVFLUSH QSHIFT [facility] Last Admin: 06/17/21 08:10 Dose: 3 ml Documented by: MILY Thiamine HCl (Thiamine Hcl 100 Mg Tablet) 100 mg PO DAILY [facility] Stop: 06/20/21 08:59 Last Admin: 06/17/21 08:10 Dose: 100 mg Documented by: MILY Labs CBC & Chem 7: 06/17/21 06:46 06/17/21 06:46 Labs: Laboratory Results - last 24 hr 06/16/21 06/16/21 06/16/21 19:47 19:48 19:48 MCV 99.7 H MCH 33.0 MCHC 33.1 RDW 17.0 H Plt Count 212 D MPV 10.1 Immature Gran % (Auto) 0.4 Neut % (Auto) 65.2 Lymph % (Auto) 19.2 L [place] % (Auto) 14.2 H Eos % (Auto) 0.4 Baso % (Auto) 0.6 Lymph # (Auto) 1.0 L [place] # (Auto) 0.8 Eos # (Auto) 0.0 Baso # (Auto) 0.0 Abs Immat Gran (auto) 0.02 Absolute Neuts (auto) 3.5 Absolute Nucleated RBC 0.000 Nucleated RBC % (auto) 0.0 PT 13.2 H INR 1.2 H APTT 34.9 Anion Gap Estim Creat Clear Calc Estimated GFR POC Glucose Random Glucose Lactic Acid Calcium Magnesium Total Bilirubin AST ALT Alkaline Phosphatase Ammonia C-Reactive Protein Total Protein Albumin Lipase Urine Color Urine Appearance Urine pH Ur Specific [place] Urine Protein Urine Glucose (UA) Urine Ketones Urine Blood Urine Nitrite Ur Leukocyte Esterase Urine RBC Urine WBC Ur Squamous Epith Cells Amorphous Sediment Urine Bacteria Hyaline Casts Urine Mucus Stool Occult Blood Ethyl Alcohol COVID-19 ([facility]) COVID-19 Clin Com Blood Type Antibody Screen 06/16/21 06/16/21 06/16/21 19:48 19:48 19:48 MCV MCH MCHC RDW Plt Count MPV Immature Gran % (Auto) Neut % (Auto) Lymph % (Auto) [place] % (Auto) Eos % (Auto) Baso % (Auto) Lymph # (Auto) [place] # (Auto) Eos # (Auto) Baso # (Auto) Abs Immat Gran (auto) Absolute Neuts (auto) Absolute Nucleated RBC Nucleated RBC % (auto) PT INR APTT Anion Gap 32 H Estim Creat Clear Calc 60.8 Estimated GFR 59 POC Glucose Random Glucose 122 H Lactic Acid 0.9 Calcium 9.0 D Magnesium 1.6 Total Bilirubin 1.8 H AST 207 H ALT 93 H Alkaline Phosphatase 288 H D Ammonia C-Reactive Protein Total Protein 6.3 L D Albumin 3.5 D Lipase 41 Urine Color Urine Appearance Urine pH Ur Specific [place] Urine Protein Urine Glucose (UA) Urine Ketones Urine Blood Urine Nitrite Ur Leukocyte Esterase Urine RBC Urine WBC Ur Squamous Epith Cells Amorphous Sediment Urine Bacteria Hyaline Casts Urine Mucus Stool Occult Blood Ethyl Alcohol COVID-19 ([facility]) COVID-19 Clin Com Blood Type A Positive Antibody Screen NEGATIVE 06/16/21 06/16/21 06/16/21 19:48 19:48 19:48 MCV MCH MCHC RDW Plt Count MPV Immature Gran % (Auto) Neut % (Auto) Lymph % (Auto) [place] % (Auto) Eos % (Auto) Baso % (Auto) Lymph # (Auto) [place] # (Auto) Eos # (Auto) Baso # (Auto) Abs Immat Gran (auto) Absolute Neuts (auto) Absolute Nucleated RBC Nucleated RBC % (auto) PT INR APTT Anion Gap Estim Creat Clear Calc Estimated GFR POC Glucose Random Glucose Lactic Acid Calcium Magnesium Total Bilirubin AST ALT Alkaline Phosphatase Ammonia 44 C-Reactive Protein Total Protein Albumin Lipase Urine Color Urine Appearance Urine pH Ur Specific [place] Urine Protein Urine Glucose (UA) Urine Ketones Urine Blood Urine Nitrite Ur Leukocyte Esterase Urine RBC Urine WBC Ur Squamous Epith Cells Amorphous Sediment Urine Bacteria Hyaline Casts Urine Mucus Stool Occult Blood POSITIVE Ethyl Alcohol < 10 COVID-19 ([facility]) COVID-19 Clin Com Blood Type Antibody Screen 06/16/21 06/16/21 06/17/21 22:19 23:52 06:46 MCV 100.6 H MCH 33.0 MCHC 32.8 RDW 17.2 H Plt Count 180 MPV 10.9 Immature Gran % (Auto) 0.7 H Neut % (Auto) 62.3 Lymph % (Auto) 22.2 [place] % (Auto) 12.4 H Eos % (Auto) 1.4 Baso % (Auto) 1.0 Lymph # (Auto) 0.9 L [place] # (Auto) 0.5 Eos # (Auto) 0.1 Baso # (Auto) 0.0 Abs Immat Gran (auto) 0.03 Absolute Neuts (auto) 2.6 Absolute Nucleated RBC 0.000 Nucleated RBC % (auto) 0.0 PT INR APTT Anion Gap Estim Creat Clear Calc Estimated GFR POC Glucose Random Glucose Lactic Acid Calcium Magnesium Total Bilirubin AST ALT Alkaline Phosphatase Ammonia C-Reactive Protein Total Protein Albumin Lipase Urine Color YELLOW Urine Appearance CLEAR Urine pH 6.0 Ur Specific [place] 1.020 Urine Protein 1+ H Urine Glucose (UA) 500 H Urine Ketones >=80 Urine Blood NEG Urine Nitrite NEG Ur Leukocyte Esterase NEG Urine RBC 1-4 Urine WBC 0-2 Ur Squamous Epith Cells 2+ Amorphous Sediment 1+ Urine Bacteria NONE Hyaline Casts 0-2 Urine Mucus TRACE Stool Occult Blood Ethyl Alcohol COVID-19 ([facility]) Negative COVID-19 Clin Com See Note Blood Type Antibody Screen 06/17/21 06/17/21 06:46 07:14 MCV MCH MCHC RDW Plt Count MPV Immature Gran % (Auto) Neut % (Auto) Lymph % (Auto) [place] % (Auto) Eos % (Auto) Baso % (Auto) Lymph # (Auto) [place] # (Auto) Eos # (Auto) Baso # (Auto) Abs Immat Gran (auto) Absolute Neuts (auto) Absolute Nucleated RBC Nucleated RBC % (auto) PT INR APTT Anion Gap 29 H Estim Creat Clear Calc 72.0 Estimated GFR > 60 POC Glucose 122 H Random Glucose 119 H Lactic Acid Calcium 8.2 L D Magnesium 1.8 Total Bilirubin AST ALT Alkaline Phosphatase Ammonia C-Reactive Protein 2.02 H Total Protein Albumin Lipase Urine Color Urine Appearance Urine pH Ur Specific [place] Urine Protein Urine Glucose (UA) Urine Ketones Urine Blood Urine Nitrite Ur Leukocyte Esterase Urine RBC Urine WBC Ur Squamous Epith Cells Amorphous Sediment Urine Bacteria Hyaline Casts Urine Mucus Stool Occult Blood Ethyl Alcohol COVID-19 ([facility]) COVID-19 Clin Com Blood Type Antibody Screen Assessment and Plan (1) Colitis: Status: [facility] hospital d#2 65yo M with HTN, HLD, DM2, recently admitted 05/25/21 for BRBPR; had colonoscopy showing hemorrhoids without any other possible source of bleeding; hemorrhoidectomy with rubber band ligation done 05/29/20 presenting with abd pain, admitted for colitis # acute colitis - ceftriaxone + metronidazole d#1, stool studies, clear liquid diet # hypoK - severe; replete IV+PO , recheck at 2pm and again in AM # hemorrhoids - s/p recent ligation. H+H stable # EtOH abuse - prn CIWA. vitamin supplementation # EtOH hepatitis - mild, MDF around 12, no steroids indicated # DM2 - correction-dose lispro # neuropathy - gabaneptin # HTN - lisinopril # HLD - atorvastatin # VTE ppx - LMWH Quality Stroke Does the patient have a stroke diagnosis?: No VTE Prior VTE?: No VTE Risk Level:: Medical - moderate - high VTE Device Contraindication: Treatment Not Indicated VTE Drug Contraindication: N/A - Med Ordered
[2021-06-17 12:28] LABS: Glucose, Whole Blood 100 mg/dL (60-115)
[2021-06-17 14:52] VITALS: BP 109/75; PULSE 62; RESP 18; O2SAT 99
[2021-06-17] MEDS: Escitalopram Oxalate 20 MG TABLET PO (14:54)
[2021-06-17] MEDS: Gabapentin 300 MG CAPSULE PO ×2 (14:54→21:38)
[2021-06-17] MEDS: Atorvastatin Calcium 80 MG TABLET PO (14:54)
--- NOTE | 2021-06-17 14:57 | MHC.CM.PN ---
EMR REVIEWED, PT ADMITTED W/COLITIS, PT'S INSURANCE VERIFIED, PT REPORTS HE LIVES W/HIS [place], IS INDEPENDENT W/ALL CARE, DENIES USE OF DME AND HOME SERVICES, PT DENIES NEED FOR SERVICES AT THIS TIME AND IS NOT HOME BOUND, PT VERIFIES PCP IS BARBARA HEBERT, PFIZER VACCINE X3 AND REPORTS HIS [place] CHILDRESS [phone] IS HIS HCP, COPY HAS BEEN REQUESTED. D/C PLAN: HOME NO SERVICES, FAMILY FOR TRANSPORT
[2021-06-17 15:20] LABS: Anion Gap 27 (12-20); Blood Urea Nitrogen 3 mg/dL (9-16); Calcium 8.6 mg/dL (8.4-10.2); Carbon Dioxide 23 mmol/L (22-29); Chloride 93 mmol/L (96-108); Creatinine Clr Calc Pharmacy 69.9; Estimated Glomerular Filt Rate > 60; Glucose Random 131 mg/dL (60-115); Potassium 3.4 mmol/L (3.3-5.1); Sodium 140 mmol/L (135-145)
[2021-06-17 17:59] LABS: Glucose, Whole Blood 102 mg/dL (60-115)
--- NOTE | 2021-06-17 18:15 | PC.NURSE ---
Pt requesting pain meds stronger than tylenol. Parris texted and made aware, awaiting further orders. Pt incontinent of stool, incontinence care performed, linens changed. pt ambulatory to the bathroom independently to help clean self up. RN to Send down stool sample.
[2021-06-17 19:32] LABS: Leukocytes Stool Qualitative NEGATIVE (NEGATIVE)
[2021-06-17 21:24] LABS: Glucose, Whole Blood 111 mg/dL (60-115)
[2021-06-17] MEDS: cefTRIAXone sodium 1 GM in 0.9 % Sodium Chloride 50 ML IV (21:39)
[2021-06-17 21:52] LABS: CDiff Gene PCR NEGATIVE (Negative)
[2021-06-18] VITALS: BP 109/63; PULSE 65; RESP 16; TEMP 36.6; O2SAT 98
[2021-06-18] MEDS: Pantoprazole Sodium 40 MG/10 ML VIAL IVPUSH (06:29)
[2021-06-18 07:17] LABS: Hematocrit 33.4 % (42.0-52.0); Hemoglobin 11.1 g/dl (14.0-18.0); Mean Corpuscular HGB Conc 33.2 g/dl (31.0-36.0); Mean Corpuscular Hemoglobin 33.6 pg (27.0-33.0); Mean Corpuscular Volume 101.2 fL (80.0-98.0); Mean Platelet Volume 10.5 fL (9.4-12.4); Platelet Count 165 X10*3/uL (160-400); Red Cell Distribution Width 16.9 % (11.0-16.0); White Blood Count 4.4 X10*3/uL (4.8-10.8)
[2021-06-18 07:42] LABS: Anion Gap 23 (12-20); Blood Urea Nitrogen 2 mg/dL (9-16); Calcium 8.2 mg/dL (8.4-10.2); Carbon Dioxide 26 mmol/L (22-29); Chloride 94 mmol/L (96-108); Creatinine Clr Calc Pharmacy 79.6; Estimated Glomerular Filt Rate > 60; Glucose Random 127 mg/dL (60-115); Magnesium 1.4 mg/dL (1.6-2.6); Potassium 3.2 mmol/L (3.3-5.1); Sodium 140 mmol/L (135-145)
[2021-06-18 07:58] LABS: Glucose, Whole Blood 131 mg/dL (60-115)
[2021-06-18] MEDS: metroNIDAZOLE/NS 500 MG/100 ML PIGGYBACK 100 MG IV ×3 (08:12→23:05)
[2021-06-18] MEDS: Folic Acid 1 MG TABLET PO (08:13)
[2021-06-18] MEDS: Thiamine HCL 100 MG TABLET PO (08:13)
[2021-06-18] MEDS: Magnesium Oxide 400 MG TABLET 800 MG PO (08:14)
[2021-06-18] MEDS: Escitalopram Oxalate 20 MG TABLET PO (08:14)
[2021-06-18] MEDS: Atorvastatin Calcium 80 MG TABLET PO (08:14)
[2021-06-18] MEDS: Multivitamin TABLET 1 TAB PO (08:14)
[2021-06-18] MEDS: Pyridoxine HCl (Vitamin B6) 50 MG TABLET PO (08:14)
[2021-06-18] MEDS: Gabapentin 300 MG CAPSULE PO ×3 (08:14→20:30)
[2021-06-18] MEDS: Potassium Chloride Packet 20 MEQ PACKET 40 MEQ PO (08:26)
[2021-06-18] MEDS: Magnesium Sulfate/H2O 2 GM/50 ML PIGGYBACK IV (08:26)
[2021-06-18 08:42] LABS: Folate 19.9 ng/mL (> or = 4.0); Vitamin B12 419 pg/mL (200-900)
[2021-06-18 09:05] VITALS: BP 105/60
--- NOTE | 2021-06-18 09:29 | PM.CNGS ---
History of Present Illness Consult details Consult date: 06/18/21 Narrative: 65-year-old male admitted for anal pain and diarrhea, referred to me for reason hemorrhoidectomy. He has a known history of alcohol abuse and was admitted last month for bleeding per rectum which was heavy. He had a colonoscopy done at that time which showed hemorrhoids which were the likely source. In view of his severe bleeding, he underwent inpatient hemorrhoidectomy last 05/29/2021. I had seen him in the office last week and he stated that he had been doing well. He has hemorrhoidectomy sites have been healing. He has had no significant bleeding since the surgery. He states that he has been sober for over a a week now. He describes severe diarrhea again and says because of the stools, he is unable to control this. He denies any nausea or vomiting. Review of Systems Constitutional: Constitutional: Denies chills and Denies fever(s) Cardiovascular: Cardiovascular: Denies chest pain, Denies dyspnea and Denies dyspnea on exertion Respiratory: Respiratory: Denies cough, Denies dyspnea and Denies dyspnea on exertion Gastrointestinal: Gastrointestinal: Denies hematochezia, Denies change in bowel habits and Reports diarrhea Genitourinary: Genitourinary: Denies hematuria and Denies difficulty urinating Musculoskeletal: Musculoskeletal: Denies back pain and Denies limited range of motion Neurologic: Denies focal weakness and Denies convulsions Psychiatric: Psychiatric: Denies depression and Denies mood swings PMFSH Past Medical History Medical History Alcohol abuse Anxiety Bleeding hemorrhoids Depression Diabetes Diabetes type 2, controlled Diabetes type 2, uncontrolled Diabetic polyneuropathy associated with type 2 diabetes mellitus Hemorrhoids without complication History of alcohol abuse Hypertension Neuropathy PVD (peripheral vascular disease) Transaminitis Family History Family History Mother No problems noted. Father No problems noted. Surgical History Surgical History H/O colonoscopy Social History Social History Household Members: Family Housing: House Do you presently have visiting nurse or other home services: No Alcohol intake: former Patient Tobacco Use Status: Current everyday Tobacco user Tobacco use type: Cigarette Cigarettes Per Day: 4 e-Cigarette/Vaping Use: Never Used Second Hand Smoke Exposure: No Use of substances other than those prescribed or required for medical reasons: No Advance Directives: No Advance Directives Information Provided: No service: No Current occupational status: retired Cognitive needs: No Hearing needs: No Vision needs: No Meds Allergies Allergy/AdvReac Type Severity Reaction Status Date / Time niacin [NIACIN] AdvReac Mild RED FLUSH, Verified 05/04/21 15:02 SHAKING Active Medications: Current Medications Acetaminophen (Acetaminophen 325 Mg Tablet) 650 mg PO Q6H PRN PRN Reason: Pain, Mild (Pain Scale 1-3) Last Admin: 06/17/21 10:01 Dose: 650 mg Documented by: Atorvastatin Calcium (Atorvastatin Calcium 80 Mg Tablet) 80 mg PO DAILY [facility] Last Admin: 06/18/21 08:14 Dose: 80 mg Documented by: Dextrose (Dextrose 50 % 25 Gm/50 Ml Vial) 25 gm IVPUSH Q15M PRN; Protocol PRN Reason: per Hypoglycemia Standing Ord. Enoxaparin Sodium (Enoxaparin Sodium 40 Mg/0.4 Ml Syringe) 40 mg SUBCUT Q24H [facility] Last Admin: 06/17/21 21:38 Dose: 40 mg Documented by: Escitalopram Oxalate (Escitalopram Oxalate 20 Mg Tablet) 20 mg PO DAILY [facility] Last Admin: 06/18/21 08:14 Dose: 20 mg Documented by: Folic Acid (Folic Acid 1 Mg Tablet) 1 mg PO DAILY [facility] Stop: 06/20/21 08:59 Last Admin: 06/18/21 08:13 Dose: 1 mg Documented by: Gabapentin (Gabapentin 300 Mg Capsule) 300 mg PO TID [facility] Last Admin: 06/18/21 08:14 Dose: 300 mg Documented by: Glucose (Glucose Gel 15 Gm Gel..Gram.) 15 gm PO Q15M PRN; Protocol PRN Reason: per Hypoglycemia Standing Ord. Ceftriaxone Sodium 1 gm/ (Sodium Chloride) 50 mls @ 100 mls/hr IV Q24H [facility] Last Infusion: 06/17/21 22:08 Dose: Infused Documented by: Metronidazole (Flagyl) 500 mg in 100 mls @ 100 mls/hr IV Q8H [facility] Last Admin: 06/18/21 08:12 Dose: 100 mls/hr Documented by: Magnesium Sulfate (Magnesium Sulfate/H2o) 2 gm in 50 mls @ 25 mls/hr IV ONCE ONE Stop: 06/18/21 09:54 Last Admin: 06/18/21 08:26 Dose: 25 mls/hr Documented by: Insulin Human Lispro (Insulin Lispro 100 Unit/Ml 3 Ml Vial) 0 unit SUBCUT QIDACHS [facility]; Protocol Last Admin: 06/18/21 08:22 Dose: Not Given Documented by: Lisinopril (Lisinopril 40 Mg Tablet) 40 mg PO DAILY [facility]; Protocol Last Admin: 06/18/21 08:15 Dose: Not Given Documented by: Lorazepam (Lorazepam 1 Mg Tablet) 1 mg PO Q4H PRN PRN Reason: Breakthrough alcohol withdrawa Stop: 06/20/21 23:11 Magnesium Oxide (Magnesium Oxide 400 Mg Tablet) 800 mg PO DAILY [facility] Last Admin: 06/18/21 08:14 Dose: 800 mg Documented by: Melatonin (Melatonin 3 Mg Tablet) 6 mg PO BEDTIME PRN PRN Reason: Insomnia Morphine Sulfate (Morphine Sulfate 2 Mg/Ml Cartridge) 2 mg IVPUSH Q2H PRN; Protocol PRN Reason: severe pain Multivitamins/Vitamin C (Multivitamin Tablet) 1 tab PO DAILY [facility] Stop: 06/20/21 08:59 Last Admin: 06/18/21 08:14 Dose: 1 tab Documented by: Pantoprazole Sodium (Pantoprazole Sodium 40 Mg/10 Ml Vial) 40 mg IVPUSH DAILY@0630 [facility] Last Admin: 06/18/21 06:29 Dose: 40 mg Documented by: Pyridoxine HCl (Pyridoxine Hcl (Vitamin B6) 50 Mg Tablet) 50 mg PO DAILY [facility] Last Admin: 06/18/21 08:14 Dose: 50 mg Documented by: Senna (Sennosides 8.6 Mg Tablet) 17.2 mg PO BEDTIME PRN PRN Reason: Constipation Sodium Chloride (0.9 % Sodium Chloride Flush 3 Ml Syringe) 3 ml IVFLUSH QSHIFT [facility] Last Admin: 06/18/21 08:21 Dose: Not Given Documented by: Thiamine HCl (Thiamine Hcl 100 Mg Tablet) 100 mg PO DAILY [facility] Stop: 06/20/21 08:59 Last Admin: 06/18/21 08:13 Dose: 100 mg Documented by: Home Medications Medication Instructions Recorded Confirmed Last Taken Type atorvastatin 80 mg tablet 1 tab PO DAILY 06/07/20 06/16/21 06/07/20 History lansoprazole 30 mg capsule,delayed 1 cap PO DAILY 06/07/20 06/16/21 06/07/20 History release lisinopril 40 mg tablet 1 tab PO DAILY 06/07/20 06/17/21 06/07/20 History pyridoxine (vitamin B6) 50 mg 50 mg PO DAILY 11/28/20 06/17/21 Unknown History tablet alpha lipoic acid 100 mg capsule 600 mg PO DAILY 06/17/21 06/17/21 Unknown History Physical Exam Vital Signs: Vital Signs: Last Vital Signs Temp 98 F 06/18/21 00:00 Pulse 65 06/18/21 00:00 Resp 16 06/18/21 00:00 BP 109/63 06/18/21 00:00 Pulse Ox 98 06/18/21 00:00 BMI result Body Mass Index 28.2 Const: General: comfortable and no acute distress Orientation/consciousness: patient oriented x3 Neck: Neck: Yes no lymphadenopathy Resp: Auscultation: clear to auscultation bilaterally Cardio: Rhythm: regular rhythm GI: Other: Rectal exam shows hemorrhoidectomy sites are healing well, not infected Palpation (GI): Soft to palpation, nontender and no guarding Neuro: General: patient oriented x3 Results Labs Result diagrams: 06/18/21 07:03 06/18/21 07:03 Labs: Abnormal lab results 06/17/21 06/18/21 06/18/21 Range/Units 14:53 07:03 07:03 WBC 4.4 L (4.8-10.8) X10*3/uL RBC 3.30 L (4.60-5.80) X10*6/uL Hgb 11.1 L (14.0-18.0) g/dl Hct 33.4 L (42.0-52.0) % MCV 101.2 H (80.0-98.0) fL MCH 33.6 H (27.0-33.0) pg RDW 16.9 H (11.0-16.0) % Potassium 3.2 L (3.3-5.1) mmol/L Chloride 93 L 94 L (96-108) mmol/L Anion Gap 27 H 23 H (12-20) BUN 3 L 2 L (9-16) mg/dL POC Glucose (60-115) mg/dL Random Glucose 131 H 127 H (60-115) mg/dL Calcium 8.2 L (8.4-10.2) mg/dL Magnesium 1.4 L* (1.6-2.6) mg/dL 06/18/21 Range/Units 07:50 WBC (4.8-10.8) X10*3/uL RBC (4.60-5.80) X10*6/uL Hgb (14.0-18.0) g/dl Hct (42.0-52.0) % MCV (80.0-98.0) fL MCH (27.0-33.0) pg RDW (11.0-16.0) % Potassium (3.3-5.1) mmol/L Chloride (96-108) mmol/L Anion Gap (12-20) BUN (9-16) mg/dL POC Glucose 131 H (60-115) mg/dL Random Glucose (60-115) mg/dL Calcium (8.4-10.2) mg/dL Magnesium (1.6-2.6) mg/dL Short CBC 06/18/21 Range/Units 07:03 WBC 4.4 L (4.8-10.8) X10*3/uL Hgb 11.1 L (14.0-18.0) g/dl Hct 33.4 L (42.0-52.0) % Plt Count 165 (160-400) X10*3/uL BMP 06/17/21 06/18/21 14:53 07:03 Sodium 140 140 Potassium 3.4 D 3.2 L Chloride 93 L 94 L Carbon Dioxide 23 26 BUN 3 L 2 L Creatinine 1.07 0.94 Calcium 8.6 8.2 L Urine 06/16/21 Range/Units 22:19 Urine Color YELLOW Urine Appearance CLEAR Urine pH 6.0 (5.0-8.0) Ur Specific [place] 1.020 (1.005-1.025) Urine Protein 1+ H (NEG-TRACE) MG/DL Urine Glucose (UA) 500 H (NEG) MG/DL All other labs normal. Imaging Abdomen CT scan report/results: report reviewed and image reviewed CT scan - pelvis: report reviewed and image reviewed Assessment and Plan (1) Colitis: Status: Acute His CAT scan shows some mild stranding around his distal ascending colon along with some thickening consistent with mild colitis. Etiology is uncertain at this time. His C diff test was negative. He still continues to have severe diarrhea. His hyperkalemia is likely secondary to his fluid losses from his water stools. He should be adequately hydrated. Otherwise, his hemorrhoidectomy sites are well healed. He has had no significant bleeding since the surgery. His abdominal exam is also benign. I will follow along while he is in the hospital. Procedures Date of Service Date of Service: 06/18/21
--- NOTE | 2021-06-18 11:00 | PC.NURSE ---
Pt incontinent of very loose yellow stool to brief, redness noted to groin and buttock, barrier cream applied. No complaints at this time, mag infusing per MAR.
[2021-06-18 12:56] VITALS: BP 122/73; PULSE 78; RESP 18; TEMP 36.2; O2SAT 98
[2021-06-18 13:05] LABS: Glucose, Whole Blood 132 mg/dL (60-115)
--- NOTE | 2021-06-18 13:36 | HO.PM.IMPN ---
Subjective Subjective Date of Service: 06/18/21 Interval History: No N/V; abd discomfort improved; c/o watery diarrhea. Review of Systems Review of Systems: Yes all other systems are reviewed and are negative Physical Exam Vital Signs: Vital Signs: Last Vital Signs Temp 97.2 F 06/18/21 12:56 Pulse 78 06/18/21 12:56 Resp 18 06/18/21 12:56 BP 122/73 06/18/21 12:56 Pulse Ox 98 06/18/21 12:56 BMI result Body Mass Index 28.2 Gen: in no acute distress HEENT: sclera anicteric, moist mucus membranes Neck: supple Lungs: clear to auscultation bilaterally Heart: regular rate and rhythm, no murmurs Abd: soft, diffuse tenderness without rebound/guarding Ext: no edema Skin: warm/well-perfused Neuro: alert and oriented x3, no focal findings Psych: appropriate affect Objective Data Active Medications Acetaminophen (Acetaminophen 325 Mg Tablet) 650 mg PO Q6H PRN PRN Reason: Pain, Mild (Pain Scale 1-3) Last Admin: 06/17/21 10:01 Dose: 650 mg Documented by: CARLYN Atorvastatin Calcium (Atorvastatin Calcium 80 Mg Tablet) 80 mg PO DAILY [facility] Last Admin: 06/18/21 08:14 Dose: 80 mg Documented by: TITA Dextrose (Dextrose 50 % 25 Gm/50 Ml Vial) 25 gm IVPUSH Q15M PRN; Protocol PRN Reason: per Hypoglycemia Standing Ord. Enoxaparin Sodium (Enoxaparin Sodium 40 Mg/0.4 Ml Syringe) 40 mg SUBCUT Q24H [facility] Last Admin: 06/17/21 21:38 Dose: 40 mg Documented by: KORIN Escitalopram Oxalate (Escitalopram Oxalate 20 Mg Tablet) 20 mg PO DAILY [facility] Last Admin: 06/18/21 08:14 Dose: 20 mg Documented by: TITA Folic Acid (Folic Acid 1 Mg Tablet) 1 mg PO DAILY [facility] Stop: 06/20/21 08:59 Last Admin: 06/18/21 08:13 Dose: 1 mg Documented by: TITA Gabapentin (Gabapentin 300 Mg Capsule) 300 mg PO TID [facility] Last Admin: 06/18/21 08:14 Dose: 300 mg Documented by: TITA Glucose (Glucose Gel 15 Gm Gel..Gram.) 15 gm PO Q15M PRN; Protocol PRN Reason: per Hypoglycemia Standing Ord. Ceftriaxone Sodium 1 gm/ (Sodium Chloride) 50 mls @ 100 mls/hr IV Q24H [facility] Last Infusion: 06/17/21 22:08 Dose: 0 mls/hr Documented by: KORIN Metronidazole (Flagyl) 500 mg in 100 mls @ 100 mls/hr IV Q8H [facility] Last Infusion: 06/18/21 12:18 Dose: 0 mls/hr Documented by: TITA Insulin Human Lispro (Insulin Lispro 100 Unit/Ml 3 Ml Vial) 0 unit SUBCUT QIDACHS [facility]; Protocol Last Admin: 06/18/21 12:59 Dose: Not Given Documented by: TITA Non-Admin Reason: No Insulin Coverage Lisinopril (Lisinopril 40 Mg Tablet) 40 mg PO DAILY [facility]; Protocol Last Admin: 06/18/21 08:15 Dose: Not Given Documented by: TITA Non-Admin Reason: Decreased Blood Pressure Lorazepam (Lorazepam 1 Mg Tablet) 1 mg PO Q4H PRN PRN Reason: Breakthrough alcohol withdrawa Stop: 06/20/21 23:11 Magnesium Oxide (Magnesium Oxide 400 Mg Tablet) 800 mg PO DAILY [facility] Last Admin: 06/18/21 08:14 Dose: 800 mg Documented by: TITA Melatonin (Melatonin 3 Mg Tablet) 6 mg PO BEDTIME PRN PRN Reason: Insomnia Morphine Sulfate (Morphine Sulfate 2 Mg/Ml Cartridge) 2 mg IVPUSH Q2H PRN; Protocol PRN Reason: severe pain Multivitamins/Vitamin C (Multivitamin Tablet) 1 tab PO DAILY [facility] Stop: 06/20/21 08:59 Last Admin: 06/18/21 08:14 Dose: 1 tab Documented by: TITA Pantoprazole Sodium (Pantoprazole Sodium 40 Mg/10 Ml Vial) 40 mg IVPUSH DAILY@0630 [facility] Last Admin: 06/18/21 06:29 Dose: 40 mg Documented by: KORIN Pyridoxine HCl (Pyridoxine Hcl (Vitamin B6) 50 Mg Tablet) 50 mg PO DAILY [facility] Last Admin: 06/18/21 08:14 Dose: 50 mg Documented by: TITA Senna (Sennosides 8.6 Mg Tablet) 17.2 mg PO BEDTIME PRN PRN Reason: Constipation Sodium Chloride (0.9 % Sodium Chloride Flush 3 Ml Syringe) 3 ml IVFLUSH QSHIFT [facility] Last Admin: 06/18/21 08:21 Dose: Not Given Documented by: TITA Non-Admin Reason: IV Running Thiamine HCl (Thiamine Hcl 100 Mg Tablet) 100 mg PO DAILY [facility] Stop: 06/20/21 08:59 Last Admin: 06/18/21 08:13 Dose: 100 mg Documented by: TITA Labs CBC & Chem 7: 06/18/21 07:03 06/18/21 07:03 Labs: Laboratory Results - last 24 hr 06/17/21 06/17/21 06/17/21 06:46 14:53 17:56 MCV MCH MCHC RDW Plt Count MPV Absolute Nucleated RBC Nucleated RBC % (auto) Anion Gap 27 H Estim Creat Clear Calc 69.9 Estimated GFR > 60 POC Glucose 102 Random Glucose 131 H Calcium 8.6 Magnesium Vitamin B12 419 Folate 19.9 Stool Leukocytes, Qual C. difficile Tox B Gene 06/17/21 06/17/21 06/17/21 18:25 18:25 21:20 MCV MCH MCHC RDW Plt Count MPV Absolute Nucleated RBC Nucleated RBC % (auto) Anion Gap Estim Creat Clear Calc Estimated GFR POC Glucose 111 Random Glucose Calcium Magnesium Vitamin B12 Folate Stool Leukocytes, Qual NEGATIVE C. difficile Tox B Gene NEGATIVE 06/18/21 06/18/21 06/18/21 07:03 07:03 07:50 MCV 101.2 H MCH 33.6 H MCHC 33.2 RDW 16.9 H Plt Count 165 MPV 10.5 Absolute Nucleated RBC 0.000 Nucleated RBC % (auto) 0.0 Anion Gap 23 H Estim Creat Clear Calc 79.6 Estimated GFR > 60 POC Glucose 131 H Random Glucose 127 H Calcium 8.2 L Magnesium 1.4 L* Vitamin B12 Folate Stool Leukocytes, Qual C. difficile Tox B Gene 06/18/21 12:59 MCV MCH MCHC RDW Plt Count MPV Absolute Nucleated RBC Nucleated RBC % (auto) Anion Gap Estim Creat Clear Calc Estimated GFR POC Glucose 132 H Random Glucose Calcium Magnesium Vitamin B12 Folate Stool Leukocytes, Qual C. difficile Tox B Gene Microbiology Microbiology Results: Microbiology 06/17/21 18:25 Stool Culture - Preliminary Stool Normal so far. 06/16/21 21:14 Blood Culture - Preliminary Blood - Venous No growth after 24 hours. 06/16/21 21:14 Blood Culture - Preliminary Blood - Venous No growth after 24 hours. Assessment and Plan (1) Colitis: Status: Acute Plan hospital d#3 65yo M with HTN, HLD, DM2, recently admitted 05/25/21 for BRBPR; had colonoscopy showing hemorrhoids without any other possible source of bleeding; hemorrhoidectomy with rubber band ligation done 05/29/20 presenting with abd pain, admitted for colitis # acute colitis - ceftriaxone + metronidazole d#2, stool studies negative, prn loperamide, advance diet # hypoMg - replete IV/PO and recheck Mg in AM # hypoK - improved, replete PO and recheck BMP in am; replete Mg # hemorrhoids - s/p recent ligation. H+H stable. surgery consulted. # EtOH abuse - prn CIWA. vitamin supplementation. CIWA consult # EtOH hepatitis - mild, MDF around 12, no steroids indicated # DM2 - correction-dose lispro # neuropathy - gabaneptin # HTN - lisinopril # HLD - atorvastatin # VTE ppx - LMWH Quality Stroke Does the patient have a stroke diagnosis?: No VTE Prior VTE?: No VTE Risk Level:: Medical - moderate - high VTE Device Contraindication: Treatment Not Indicated VTE Drug Contraindication: N/A - Med Ordered
[2021-06-18] MEDS: Loperamide HCl 2 MG CAPSULE PO (14:38)
[2021-06-18 15:13] VITALS: BP 108/65; PULSE 65; RESP 24; TEMP 36.2; O2SAT 94
--- NOTE | 2021-06-18 15:32 | MHC.RECOVSUP ---
Recovery Support note: Patient is a 65 year old [place]auruan speaking male who [place] [facility] due to dark stool, nausea and decreased PO intake. This writer technical publications met with patient in to discuss his alcohol use and recovery supports. Patient reports he did not realize the negative impact alcohol was having on his health and that he plans to try and maintain sobriety after discharge. Patient reports if he typically drinks while watching sports and that on average he is having a couple beers and a couple shots. Patient reports the number of days he drinks a week varies depending on how many sporting events there are however he intentionally tries to put several days of sobriety between the days where he drinks. Patient reports he will move forward with the intention of maintaining sobriety but that if he does end up drinking, he states he plans to significantly reduce the amount he drinks. Patient reports he has not had a drink in 3 weeks and that he has had no cravings in that time. Patient reports he lives with his and daughters and that he has many grandchildren that keep him busy. Patient reports he is well supported by his family and does not anticipate any issues in regards to maintaining sobriety. Discussed recovery supports available with patient. Discussed content of conversation with patient's RN.
[2021-06-18 15:37] LABS: Glucose, Whole Blood 159 mg/dL (60-115)
[2021-06-18] MEDS: 0.9 % Sodium Chloride Flush 3 ML SYRINGE IVFLUSH (15:40)
[2021-06-18] MEDS: Insulin Lispro 100 UNIT/ML 3 ML VIAL SUBCUT (16:22)
[2021-06-18 19:32] LABS: Glucose, Whole Blood 148 mg/dL (60-115)
[2021-06-18] MEDS: cefTRIAXone sodium 1 GM in 0.9 % Sodium Chloride 50 ML IV (22:22)
[2021-06-18] MEDS: Enoxaparin Sodium 40 MG/0.4 ML SYRINGE SUBCUT (23:05)
[2021-06-18 23:42] VITALS: BP 110/65; PULSE 76; RESP 18; TEMP 36.6; O2SAT 96
[2021-06-19 06:19] LABS: Anion Gap 18 (12-20); Blood Urea Nitrogen 2 mg/dL (9-16); C Reactive Protein 1.07 mg/dL (< or = 0.50); Carbon Dioxide 30 mmol/L (22-29); Chloride 95 mmol/L (96-108); Creatinine Clr Calc Pharmacy 91.3; Estimated Glomerular Filt Rate > 60; Glucose Random 134 mg/dL (60-115); Magnesium 1.4 mg/dL (1.6-2.6); Potassium 2.6 mmol/L (3.3-5.1); Sodium 140 mmol/L (135-145)
[2021-06-19] MEDS: metroNIDAZOLE/NS 500 MG/100 ML PIGGYBACK 100 MG IV ×2 (06:25→15:32)
[2021-06-19] MEDS: Pantoprazole Sodium 40 MG/10 ML VIAL IVPUSH (06:25)
[2021-06-19] MEDS: Gabapentin 300 MG CAPSULE PO ×3 (07:37→20:40)
[2021-06-19] MEDS: Escitalopram Oxalate 20 MG TABLET PO (07:37)
[2021-06-19] MEDS: lisinopriL 40 MG TABLET PO (07:37)
[2021-06-19] MEDS: Atorvastatin Calcium 80 MG TABLET PO (07:37)
[2021-06-19] MEDS: Pyridoxine HCl (Vitamin B6) 50 MG TABLET PO (07:37)
[2021-06-19] MEDS: Magnesium Oxide 400 MG TABLET 800 MG PO (07:37)
[2021-06-19 07:38] LABS: Glucose, Whole Blood 134 mg/dL (60-115)
[2021-06-19] MEDS: Folic Acid 1 MG TABLET PO (07:38)
[2021-06-19] MEDS: Thiamine HCL 100 MG TABLET PO (07:38)
[2021-06-19] MEDS: Loperamide HCl 2 MG CAPSULE PO ×2 (07:38→15:32)
[2021-06-19] MEDS: Multivitamin TABLET 1 TAB PO (07:38)
[2021-06-19 08:00] VITALS: BP 103/65; PULSE 79; RESP 18; TEMP 36.2; O2SAT 96
--- NOTE | 2021-06-19 08:33 | P.PNGS_ITS ---
Subjective Subjective Date of Service: 06/19/21 Interval history: says he is ok still having a lot of watery diarrhea no rectal bleed Physical Exam Vital Signs: Vital Signs: Last Vital Signs Temp 97.2 F 06/19/21 08:00 Pulse 79 06/19/21 08:00 Resp 18 06/19/21 08:00 BP 103/65 06/19/21 08:00 Pulse Ox 96 06/19/21 08:00 BMI result Body Mass Index 28.2 Const: General: comfortable and no acute distress Resp: Effort & Inspection: normal respiratory effort Cardio: Rate: regular rate GI: Palpation (GI): Soft to palpation, not firm, nontender and no guarding Objective Data Active Medications Acetaminophen (Acetaminophen 325 Mg Tablet) 650 mg PO Q6H PRN PRN Reason: Pain, Mild (Pain Scale 1-3) Last Admin: 06/17/21 10:01 Dose: 650 mg Documented by: CARLYN Atorvastatin Calcium (Atorvastatin Calcium 80 Mg Tablet) 80 mg PO DAILY [facility] Last Admin: 06/19/21 07:37 Dose: 80 mg Documented by: RYANNEMA Dextrose (Dextrose 50 % 25 Gm/50 Ml Vial) 25 gm IVPUSH Q15M PRN; Protocol PRN Reason: per Hypoglycemia Standing Ord. Enoxaparin Sodium (Enoxaparin Sodium 40 Mg/0.4 Ml Syringe) 40 mg SUBCUT Q24H [facility] Last Admin: 06/18/21 23:05 Dose: 40 mg Documented by: KURTIS Escitalopram Oxalate (Escitalopram Oxalate 20 Mg Tablet) 20 mg PO DAILY [facility] Last Admin: 06/19/21 07:37 Dose: 20 mg Documented by: RYANNEMA Folic Acid (Folic Acid 1 Mg Tablet) 1 mg PO DAILY [facility] Stop: 06/20/21 08:59 Last Admin: 06/19/21 07:38 Dose: 1 mg Documented by: RYANNEMA Gabapentin (Gabapentin 300 Mg Capsule) 300 mg PO TID [facility] Last Admin: 06/19/21 07:37 Dose: 300 mg Documented by: RYANNEMA Glucose (Glucose Gel 15 Gm Gel..Gram.) 15 gm PO Q15M PRN; Protocol PRN Reason: per Hypoglycemia Standing Ord. Ceftriaxone Sodium 1 gm/ (Sodium Chloride) 50 mls @ 100 mls/hr IV Q24H [facility] Last Infusion: 06/18/21 23:08 Dose: 0 mls/hr Documented by: KURTIS Metronidazole (Flagyl) 500 mg in 100 mls @ 100 mls/hr IV Q8H [facility] Last Infusion: 06/19/21 07:31 Dose: 0 mls/hr Documented by: COTEMA Magnesium Sulfate (Magnesium Sulfate/H2o) 2 gm in 50 mls @ 25 mls/hr IV ONCE ONE Stop: 06/19/21 09:39 Potassium Chloride () 10 meq in 100 mls @ 100 mls/hr IV Q1H [facility] Stop: 06/19/21 11:44 Insulin Human Lispro (Insulin Lispro 100 Unit/Ml 3 Ml Vial) 0 unit SUBCUT QIDACHS [facility]; Protocol Last Admin: 06/19/21 07:31 Dose: Not Given Documented by: RYANNEMA Non-Admin Reason: No Insulin Coverage Lisinopril (Lisinopril 40 Mg Tablet) 40 mg PO DAILY [facility]; Protocol Last Admin: 06/19/21 07:37 Dose: 40 mg Documented by: RYANNEMA Loperamide HCl (Loperamide Hcl 2 Mg Capsule) 2 mg PO Q4H PRN PRN Reason: diarhea Last Admin: 06/19/21 07:38 Dose: 2 mg Documented by: COTEMA Lorazepam (Lorazepam 1 Mg Tablet) 1 mg PO Q4H PRN PRN Reason: Breakthrough alcohol withdrawa Stop: 06/20/21 23:11 Magnesium Oxide (Magnesium Oxide 400 Mg Tablet) 800 mg PO DAILY [facility] Last Admin: 06/19/21 07:37 Dose: 800 mg Documented by: TITA Melatonin (Melatonin 3 Mg Tablet) 6 mg PO BEDTIME PRN PRN Reason: Insomnia Morphine Sulfate (Morphine Sulfate 2 Mg/Ml Cartridge) 2 mg IVPUSH Q2H PRN; Protocol PRN Reason: severe pain Multivitamins/Vitamin C (Multivitamin Tablet) 1 tab PO DAILY [facility] Stop: 06/20/21 08:59 Last Admin: 06/19/21 07:38 Dose: 1 tab Documented by: RYANNEMA Pantoprazole Sodium (Pantoprazole Sodium 40 Mg/10 Ml Vial) 40 mg IVPUSH DAILY@ 0630 [facility] Last Admin: 06/19/21 06:25 Dose: 40 mg Documented by: HO.[email or web address] Pyridoxine HCl (Pyridoxine Hcl (Vitamin B6) 50 Mg Tablet) 50 mg PO DAILY [facility] Last Admin: 06/19/21 07:37 Dose: 50 mg Documented by: TITA Senna (Sennosides 8.6 Mg Tablet) 17.2 mg PO BEDTIME PRN PRN Reason: Constipation Sodium Chloride (0.9 % Sodium Chloride Flush 3 Ml Syringe) 3 ml IVFLUSH QSHIFT [facility] Last Admin: 06/19/21 06:54 Dose: Not Given Documented by: TITA Non-Admin Reason: IV Running Thiamine HCl (Thiamine Hcl 100 Mg Tablet) 100 mg PO DAILY [facility] Stop: 06/20/21 08:59 Last Admin: 06/19/21 07:38 Dose: 100 mg Documented by: TITA Labs CBC & Chem 7: 06/18/21 07:03 06/19/21 05:21 Labs: Laboratory Results - last 24 hr 06/17/21 06/18/21 06/18/21 06:46 12:59 15:15 Anion Gap Estim Creat Clear Calc Estimated GFR POC Glucose 132 H 159 H Random Glucose Calcium Magnesium C-Reactive Protein Vitamin B12 419 Folate 19.9 06/18/21 06/19/21 06/19/21 19:28 05:21 07:30 Anion Gap 18 Estim Creat Clear Calc 91.3 Estimated GFR > 60 POC Glucose 148 H 134 H Random Glucose 134 H Calcium 8.0 L Magnesium 1.4 L* C-Reactive Protein 1.07 H Vitamin B12 Folate Microbiology Microbiology Results: Microbiology 06/17/21 18:25 Stool Culture - Preliminary Stool Normal so far. 06/16/21 21:14 Blood Culture - Preliminary Blood - Venous No growth after 48 hours. 06/16/21 21:14 Blood Culture - Preliminary Blood - Venous No growth after 48 hours. Procedures Date of Service Date of Service: 06/19/21 Progress Note: A&P Assessment and plan (1) Colitis: Status: Acute Assessment and Plan: negative for C diff correct hypoK no rectal bleeding abdomen soft IVF for fluid losses etiol of colitis uncertain but may be abx-induced Fall Risk Details Current Medications: Current Medications Acetaminophen (Acetaminophen 325 Mg Tablet) 650 mg PO Q6H PRN PRN Reason: Pain, Mild (Pain Scale 1-3) Last Admin: 06/17/21 10:01 Dose: 650 mg Documented by: Atorvastatin Calcium (Atorvastatin Calcium 80 Mg Tablet) 80 mg PO DAILY [facility] Last Admin: 06/19/21 07:37 Dose: 80 mg Documented by: Dextrose (Dextrose 50 % 25 Gm/50 Ml Vial) 25 gm IVPUSH Q15M PRN; Protocol PRN Reason: per Hypoglycemia Standing Ord. Enoxaparin Sodium (Enoxaparin Sodium 40 Mg/0.4 Ml Syringe) 40 mg SUBCUT Q24H [facility] Last Admin: 06/18/21 23:05 Dose: 40 mg Documented by: Escitalopram Oxalate (Escitalopram Oxalate 20 Mg Tablet) 20 mg PO DAILY [facility] Last Admin: 06/19/21 07:37 Dose: 20 mg Documented by: Folic Acid (Folic Acid 1 Mg Tablet) 1 mg PO DAILY [facility] Stop: 06/20/21 08:59 Last Admin: 06/19/21 07:38 Dose: 1 mg Documented by: Gabapentin (Gabapentin 300 Mg Capsule) 300 mg PO TID [facility] Last Admin: 06/19/21 07:37 Dose: 300 mg Documented by: Glucose (Glucose Gel 15 Gm Gel..Gram.) 15 gm PO Q15M PRN; Protocol PRN Reason: per Hypoglycemia Standing Ord. Ceftriaxone Sodium 1 gm/ (Sodium Chloride) 50 mls @ 100 mls/hr IV Q24H [facility] Last Infusion: 06/18/21 23:08 Dose: Infused Documented by: Metronidazole (Flagyl) 500 mg in 100 mls @ 100 mls/hr IV Q8H [facility] Last Infusion: 06/19/21 07:31 Dose: Infused Documented by: Magnesium Sulfate (Magnesium Sulfate/H2o) 2 gm in 50 mls @ 25 mls/hr IV ONCE ONE Stop: 06/19/21 09:39 Potassium Chloride () 10 meq in 100 mls @ 100 mls/hr IV Q1H [facility] Stop: 06/19/21 11:44 Insulin Human Lispro (Insulin Lispro 100 Unit/Ml 3 Ml Vial) 0 unit SUBCUT QIDACHS [facility]; Protocol Last Admin: 06/19/21 07:31 Dose: Not Given Documented by: Lisinopril (Lisinopril 40 Mg Tablet) 40 mg PO DAILY [facility]; Protocol Last Admin: 06/19/21 07:37 Dose: 40 mg Documented by: Loperamide HCl (Loperamide Hcl 2 Mg Capsule) 2 mg PO Q4H PRN PRN Reason: diarhea Last Admin: 06/19/21 07:38 Dose: 2 mg Documented by: Lorazepam (Lorazepam 1 Mg Tablet) 1 mg PO Q4H PRN PRN Reason: Breakthrough alcohol withdrawa Stop: 06/20/21 23:11 Magnesium Oxide (Magnesium Oxide 400 Mg Tablet) 800 mg PO DAILY [facility] Last Admin: 06/19/21 07:37 Dose: 800 mg Documented by: Melatonin (Melatonin 3 Mg Tablet) 6 mg PO BEDTIME PRN PRN Reason: Insomnia Morphine Sulfate (Morphine Sulfate 2 Mg/Ml Cartridge) 2 mg IVPUSH Q2H PRN; Protocol PRN Reason: severe pain Multivitamins/Vitamin C (Multivitamin Tablet) 1 tab PO DAILY [facility] Stop: 06/20/21 08:59 Last Admin: 06/19/21 07:38 Dose: 1 tab Documented by: Pantoprazole Sodium (Pantoprazole Sodium 40 Mg/10 Ml Vial) 40 mg IVPUSH DAILY@0630 [facility] Last Admin: 06/19/21 06:25 Dose: 40 mg Documented by: Pyridoxine HCl (Pyridoxine Hcl (Vitamin B6) 50 Mg Tablet) 50 mg PO DAILY [facility] Last Admin: 06/19/21 07:37 Dose: 50 mg Documented by: Senna (Sennosides 8.6 Mg Tablet) 17.2 mg PO BEDTIME PRN PRN Reason: Constipation Sodium Chloride (0.9 % Sodium Chloride Flush 3 Ml Syringe) 3 ml IVFLUSH QSHIFT [facility] Last Admin: 06/19/21 06:54 Dose: Not Given Documented by: Thiamine HCl (Thiamine Hcl 100 Mg Tablet) 100 mg PO DAILY [facility] Stop: 06/20/21 08:59 Last Admin: 06/19/21 07:38 Dose: 100 mg Documented by: Time Spent With Patient Time: Total time spent is greater than 50% in coordination of care (as documented) at patient's floor/unit and/or counseling patient: Time with patient: 15 - 24 minutes Quality Stroke Does the patient have a stroke diagnosis?: No VTE Prior VTE?: No VTE Risk Level:: Medical - moderate - high VTE Device Contraindication: Treatment Not Indicated VTE Drug Contraindication: N/A - Med Ordered
[2021-06-19] MEDS: Magnesium Sulfate/H2O 2 GM/50 ML PIGGYBACK IV (08:47)
[2021-06-19] MEDS: Potassium Chloride/H20 10 MEQ/100 ML PIGGYBACK 100 MEQ IV ×4 (08:48→11:57)
[2021-06-19 10:03] VITALS: BMI 28.2
--- NOTE | 2021-06-19 10:09 | MHC.CLN ---
RE: CONSULT PT WITH REPORTED RECENT WT LOSS PT PREVIOUS WT HX REVEALS 12# WT LOSS X 5 DAYS 06/16/21 79.4KG 06/11/21 85KG PT'S UBW APPROX. 85KG FROM PREVIOUS ADMISSIONS. PT DOES ENDORSE WT LOSS, HOWEVER AMOUNT IS UNKNOWN AT THIS TIME. DIET RX: 2000DM-APPROPRIATE PO INTAKE 50% AVG RECOMMEND OBTAINING RE-WEIGHT TO VERIFY WT LOSS WILL ADD ENSURE BID TO INCREASE KCALS R/T ACUTE ILLNESS COLITIS MONITOR PO INTAKE AND SUPPLEMENT ACCEPTANCE CLOSELY SEE ALSO FULL CLINICAL NUTRITION ASSESSMENT
--- NOTE | 2021-06-19 10:28 | HO.PM.IMPN ---
Subjective Subjective Date of Service: 06/19/21 Interval History: No acute issues overnight. Still with watery diarrhea+/- incontinence Review of Systems Denies Chest pain Denies SOB Admits to Diarrhea;no N/V Physical Exam Vital Signs: Vital Signs: Last Vital Signs Temp 97.2 F 06/19/21 08:00 Pulse 79 06/19/21 08:00 Resp 18 06/19/21 08:00 BP 103/65 06/19/21 08:00 Pulse Ox 96 06/19/21 08:00 BMI result Body Mass Index 28.2 Const: Other: No acute distress Resp: Other: Clear to auscultation bilat...no rales rhonchi wheezes Cardio: Other: No S4;+S1/S2 no S3 M/R/G/ GI: Other: soft with milod diffuse tenderness across lower abd. BS x 4 quads Extrem: Other: No edema Objective Data Active Medications Acetaminophen (Acetaminophen 325 Mg Tablet) 650 mg PO Q6H PRN PRN Reason: Pain, Mild (Pain Scale 1-3) Last Admin: 06/17/21 10:01 Dose: 650 mg Documented by: CARLYN Atorvastatin Calcium (Atorvastatin Calcium 80 Mg Tablet) 80 mg PO DAILY [facility] Last Admin: 06/19/21 07:37 Dose: 80 mg Documented by: RYANNEMA Dextrose (Dextrose 50 % 25 Gm/50 Ml Vial) 25 gm IVPUSH Q15M PRN; Protocol PRN Reason: per Hypoglycemia Standing Ord. Enoxaparin Sodium (Enoxaparin Sodium 40 Mg/0.4 Ml Syringe) 40 mg SUBCUT Q24H [facility] Last Admin: 06/18/21 23:05 Dose: 40 mg Documented by: KURTIS Escitalopram Oxalate (Escitalopram Oxalate 20 Mg Tablet) 20 mg PO DAILY [facility] Last Admin: 06/19/21 07:37 Dose: 20 mg Documented by: TITA Folic Acid (Folic Acid 1 Mg Tablet) 1 mg PO DAILY [facility] Stop: 06/20/21 08:59 Last Admin: 06/19/21 07:38 Dose: 1 mg Documented by: RYANNEMA Gabapentin (Gabapentin 300 Mg Capsule) 300 mg PO TID [facility] Last Admin: 06/19/21 07:37 Dose: 300 mg Documented by: RYANNEMA Glucose (Glucose Gel 15 Gm Gel..Gram.) 15 gm PO Q15M PRN; Protocol PRN Reason: per Hypoglycemia Standing Ord. Ceftriaxone Sodium 1 gm/ (Sodium Chloride) 50 mls @ 100 mls/hr IV Q24H [facility] Last Infusion: 06/18/21 23:08 Dose: 0 mls/hr Documented by: KURTIS Metronidazole (Flagyl) 500 mg in 100 mls @ 100 mls/hr IV Q8H [facility] Last Infusion: 06/19/21 07:31 Dose: 0 mls/hr Documented by: COTEMA Potassium Chloride () 10 meq in 100 mls @ 100 mls/hr IV Q1H [facility] Stop: 06/19/21 11:44 Last Admin: 06/19/21 09:57 Dose: 100 mls/hr Documented by: COTEMA Insulin Human Lispro (Insulin Lispro 100 Unit/Ml 3 Ml Vial) 0 unit SUBCUT QIDACHS [facility]; Protocol Last Admin: 06/19/21 07:31 Dose: Not Given Documented by: COTEMA Non-Admin Reason: No Insulin Coverage Lisinopril (Lisinopril 40 Mg Tablet) 40 mg PO DAILY [facility]; Protocol Last Admin: 06/19/21 07:37 Dose: 40 mg Documented by: COTEMA Loperamide HCl (Loperamide Hcl 2 Mg Capsule) 2 mg PO Q4H PRN PRN Reason: diarhea Last Admin: 06/19/21 07:38 Dose: 2 mg Documented by: COTEMA Lorazepam (Lorazepam 1 Mg Tablet) 1 mg PO Q4H PRN PRN Reason: Breakthrough alcohol withdrawa Stop: 06/20/21 23:11 Magnesium Oxide (Magnesium Oxide 400 Mg Tablet) 800 mg PO DAILY [facility] Last Admin: 06/19/21 07:37 Dose: 800 mg Documented by: COTEMA Melatonin (Melatonin 3 Mg Tablet) 6 mg PO BEDTIME PRN PRN Reason: Insomnia Morphine Sulfate (Morphine Sulfate 2 Mg/Ml Cartridge) 2 mg IVPUSH Q2H PRN; Protocol PRN Reason: severe pain Multivitamins/Vitamin C (Multivitamin Tablet) 1 tab PO DAILY [facility] Stop: 06/20/21 08:59 Last Admin: 06/19/21 07:38 Dose: 1 tab Documented by: [email or web address] Pantoprazole Sodium (Pantoprazole Sodium 40 Mg/10 Ml Vial) 40 mg IVPUSH DAILY@0630 [facility] Last Admin: 06/19/21 06:25 Dose: 40 mg Documented by: KURTIS Pyridoxine HCl (Pyridoxine Hcl (Vitamin B6) 50 Mg Tablet) 50 mg PO DAILY [facility] Last Admin: 06/19/21 07:37 Dose: 50 mg Documented by: TITA Senna (Sennosides 8.6 Mg Tablet) 17.2 mg PO BEDTIME PRN PRN Reason: Constipation Sodium Chloride (0.9 % Sodium Chloride Flush 3 Ml Syringe) 3 ml IVFLUSH QSHIFT [facility] Last Admin: 06/19/21 06:54 Dose: Not Given Documented by: TITA Non-Admin Reason: IV Running Thiamine HCl (Thiamine Hcl 100 Mg Tablet) 100 mg PO DAILY [facility] Stop: 06/20/21 08:59 Last Admin: 06/19/21 07:38 Dose: 100 mg Documented by: TITA Labs CBC & Chem 7: 06/18/21 07:03 06/19/21 05:21 Labs: Laboratory Results - last 24 hr 06/18/21 06/18/21 06/18/21 12:59 15:15 19:28 Anion Gap Estim Creat Clear Calc Estimated GFR POC Glucose 132 H 159 H 148 H Random Glucose Calcium Magnesium C-Reactive Protein 06/19/21 06/19/21 05:21 07:30 Anion Gap 18 Estim Creat Clear Calc 91.3 Estimated GFR > 60 POC Glucose 134 H Random Glucose 134 H Calcium 8.0 L Magnesium 1.4 L* C-Reactive Protein 1.07 H Microbiology Microbiology Results: Microbiology 06/17/21 18:25 Stool Culture - Preliminary Stool Normal so far. 06/16/21 21:14 Blood Culture - Preliminary Blood - Venous No growth after 48 hours. 06/16/21 21:14 Blood Culture - Preliminary Blood - Venous No growth after 48 hours. Assessment and Plan (1) Colitis: Status: Acute (2) Acute hypokalemia: Status: Acute (3) Elevated liver function tests: Status: Acute (4) Diabetes type 2, controlled: Status: Acute Plan hospital d#3 65yo M with HTN, HLD, DM2, recently admitted 05/25/21 for BRBPR; had colonoscopy showing hemorrhoids without any other possible source of bleeding; hemorrhoidectomy with rubber band ligation done 05/29/20 presenting with abd pain, admitted for colitis.Slowly improving....diarrhea persistant 1.Acute colitis - ceftriaxone/metronidazole(3) - advance diet as tolerated 2.HypoMg/K - replete IV/PO and recheck Mg in AM 3.EtOH abuse - CIWA thus far negative 4.EtOH hepatitis - worsening ? D/T ABTX -trend; consult GI if no improvement 4. DMII -acceptable contyrol - correction-dose lispro 5.HTN -acceptable control on lisinopril -adjust as indicated VTE ppx - LMWH Full Code Will likely need 1-2 additional midnights given continued pain and inability to resume diet Quality Stroke Does the patient have a stroke diagnosis?: No VTE Prior VTE?: No VTE Risk Level:: Medical - moderate - high VTE Device Contraindication: Treatment Not Indicated VTE Drug Contraindication: N/A - Med Ordered
[2021-06-19 11:34] LABS: Glucose, Whole Blood 155 mg/dL (60-115)
[2021-06-19 11:34] LABS: Alanine Aminotransferase 68 U/L (0-40); Aspartate Amino Transferase 128 U/L (5-37); Bilirubin Total 0.9 mg/dL (0.0-1.0)
[2021-06-19] MEDS: Insulin Lispro 100 UNIT/ML 3 ML VIAL SUBCUT ×2 (11:41→20:40)
[2021-06-19 12:04] VITALS: BP 89/50
[2021-06-19] MEDS: 0.9 % Sodium Chloride 1,000 ML 100 ML IVCONT (12:57)
[2021-06-19 15:11] VITALS: BP 100/50; PULSE 74; RESP 18; TEMP 36.8; O2SAT 93
[2021-06-19 16:42] LABS: Glucose, Whole Blood 134 mg/dL (60-115)
[2021-06-19 20:05] LABS: Glucose, Whole Blood 205 mg/dL (60-115)
[2021-06-19] MEDS: cefTRIAXone sodium 1 GM in 0.9 % Sodium Chloride 50 ML IV (22:51)
[2021-06-20] VITALS: BP 97/60; PULSE 71; RESP 17; TEMP 36.4; O2SAT 96
[2021-06-20] MEDS: Enoxaparin Sodium 40 MG/0.4 ML SYRINGE SUBCUT ×2 (00:08→22:05)
[2021-06-20] MEDS: metroNIDAZOLE/NS 500 MG/100 ML PIGGYBACK 100 MG IV ×4 (00:08→22:37)
[2021-06-20] MEDS: 0.9 % Sodium Chloride 1,000 ML 100 ML IVCONT ×2 (03:16→15:29)
[2021-06-20] MEDS: Pantoprazole Sodium 40 MG/10 ML VIAL IVPUSH (05:41)
[2021-06-20 05:50] LABS: MANUAL DIFF FLAG NO
[2021-06-20 06:00] LABS: Basophils Percent Auto 0.6 % (0-2); Imm Gran Abs Auto 0.02 X10*3/uL (0.00-0.03); Imm Gran Pct Auto 0.6 % (0.0-0.4); Monocytes Absolute Auto 0.5 X10*3/uL (0.1-1.2); PLT CLUMP 1; SCAN SMEAR FLAG 1
[2021-06-20 06:02] LABS: Eosinophils Absolute Auto 0.1 X10*3/uL (0.0-0.4); Eosinophils Percent Auto 2.9 % (0-4); Hemoglobin 10.1 g/dl (14.0-18.0); Lymphocytes Absolute Auto 0.7 X10*3/uL (1.2-4.9); Lymphocytes Percent Auto 21.4 % (20-40); Mean Corpuscular HGB Conc 33.7 g/dl (31.0-36.0); Mean Corpuscular Hemoglobin 33.1 pg (27.0-33.0); Mean Corpuscular Volume 98.4 fL (80.0-98.0); Mean Platelet Volume 11.2 fL (9.4-12.4); Monocytes Percent Auto 14.1 % (2-11); Neutrophils Absolute Auto 2.1 x10*3/uL (2.0-8.3); Neutrophils Percent Auto 60.4 % (45-73); Red Blood Count 3.05 X10*6/uL (4.60-5.80); Red Cell Distribution Width 17.4 % (11.0-16.0)
[2021-06-20 06:03] LABS: Platelet Count 129 X10*3/uL (160-400); White Blood Count 3.4 X10*3/uL (4.8-10.8)
[2021-06-20 06:23] LABS: Alanine Aminotransferase 55 U/L (0-40); Albumin Level 2.8 g/dL (3.5-5.0); Alkaline Phosphatase 189 U/L (39-117); Anion Gap 13 (12-20); Aspartate Amino Transferase 110 U/L (5-37); Bilirubin Total 0.9 mg/dL (0.0-1.0); Blood Urea Nitrogen 2 mg/dL (9-16); Calcium 7.8 mg/dL (8.4-10.2); Carbon Dioxide 30 mmol/L (22-29); Chloride 104 mmol/L (96-108); Creatinine Clr Calc Pharmacy 106.9; Estimated Glomerular Filt Rate > 60; Glucose Fasting 144 mg/dL (60-99); Magnesium 1.6 mg/dL (1.6-2.6); Potassium 2.7 mmol/L (3.3-5.1); Sodium 144 mmol/L (135-145); Total Protein 5.1 g/dL (6.5-8.0)
[2021-06-20 07:15] VITALS: BP 103/70; PULSE 70; RESP 18; TEMP 36.6; O2SAT 91
[2021-06-20 07:46] LABS: Glucose, Whole Blood 138 mg/dL (60-115)
[2021-06-20] MEDS: Potassium Chloride/H20 10 MEQ/100 ML PIGGYBACK 100 MEQ IV (08:50)
[2021-06-20] MEDS: Escitalopram Oxalate 20 MG TABLET PO (08:50)
[2021-06-20] MEDS: Potassium Chloride Packet 20 MEQ PACKET 40 MEQ PO ×2 (08:50→20:09)
[2021-06-20] MEDS: Atorvastatin Calcium 80 MG TABLET PO (08:50)
[2021-06-20] MEDS: Pyridoxine HCl (Vitamin B6) 50 MG TABLET PO (08:51)
[2021-06-20] MEDS: Magnesium Oxide 400 MG TABLET 800 MG PO (08:51)
[2021-06-20] MEDS: lisinopriL 40 MG TABLET PO (08:51)
[2021-06-20] MEDS: Gabapentin 300 MG CAPSULE PO ×3 (08:52→20:09)
[2021-06-20] MEDS: 0.9 % Sodium Chloride Flush 3 ML SYRINGE IVFLUSH ×2 (08:52→15:25)
[2021-06-20 11:01] LABS: Glucose, Whole Blood 212 mg/dL (60-115)
--- NOTE | 2021-06-20 11:23 | MHC.CLN ---
F/U DIET RX: 2000DM-APPROPRIATE. GLUCERNA BID PROVIDES ADDITIONAL 474 KCAL, 20 G PROTEIN. PO INTAKE X PAST 3 MEALS =100%. RE-WEIGHT REQUESTED TO VERIFY WT LOSS. MONITOR PO INTAKE AND SUPPLEMENT ACCEPTANCE CLOSELY.
[2021-06-20 11:38] VITALS: BMI 29.5
[2021-06-20] MEDS: Insulin Lispro 100 UNIT/ML 3 ML VIAL SUBCUT ×3 (12:07→20:08)
--- NOTE | 2021-06-20 12:57 | MHC.CM.PN ---
EMR REVIEWED, PER HOSPITALIST ANTIC PT WILL BE CLEARED FOR D/C HOME TOMORROW 06/21/21, DO NOT ANTIC PT WILL NEED SERVICES AND FAMILY WILL TRANSPORT.
--- NOTE | 2021-06-20 14:20 | P.PNIM_ITS ---
Subjective Subjective Date of Service: 06/20/21 Interval History: No acute issues overnight. Still with watery diarrhea+/- incontinence Review of Systems Denies Chest pain Denies SOB Admits to Diarrhea;no N/V Physical Exam Vital Signs: Vital Signs: Last Vital Signs Temp 98 F 06/20/21 07:15 Pulse 70 06/20/21 07:15 Resp 18 06/20/21 07:15 BP 103/70 06/20/21 07:15 Pulse Ox 91 L 06/20/21 07:15 BMI result Body Mass Index 29.5 Const: Other: No acute distress Resp: Other: Clear to auscultation bilat...no rales rhonchi wheezes Cardio: Other: No S4;+S1/S2 no S3 M/R/G/ GI: Other: soft with milod diffuse tenderness across lower abd. BS x 4 quads Extrem: Other: No edema Objective Data Active Medications Acetaminophen (Acetaminophen 325 Mg Tablet) 650 mg PO Q6H PRN PRN Reason: Pain, Mild (Pain Scale 1-3) Last Admin: 06/17/21 10:01 Dose: 650 mg Documented by: CARLYN Atorvastatin Calcium (Atorvastatin Calcium 80 Mg Tablet) 80 mg PO DAILY [facility] Last Admin: 06/20/21 08:50 Dose: 80 mg Documented by: KELIN Dextrose (Dextrose 50 % 25 Gm/50 Ml Vial) 25 gm IVPUSH Q15M PRN; Protocol PRN Reason: per Hypoglycemia Standing Ord. Enoxaparin Sodium (Enoxaparin Sodium 40 Mg/0.4 Ml Syringe) 40 mg SUBCUT Q24H S Last Admin: 06/20/21 00:08 Dose: 40 mg Documented by: KURTIS Escitalopram Oxalate (Escitalopram Oxalate 20 Mg Tablet) 20 mg PO DAILY [facility] Last Admin: 06/20/21 08:50 Dose: 20 mg Documented by: KELIN Gabapentin (Gabapentin 300 Mg Capsule) 300 mg PO TID [facility] Last Admin: 06/20/21 08:52 Dose: 300 mg Documented by: KELIN Glucose (Glucose Gel 15 Gm Gel..Gram.) 15 gm PO Q15M PRN; Protocol PRN Reason: per Hypoglycemia Standing Ord. Ceftriaxone Sodium 1 gm/ (Sodium Chloride) 50 mls @ 100 mls/hr IV Q24H [facility] Last Infusion: 06/20/21 00:07 Dose: 0 mls/hr Documented by: KURTIS Metronidazole (Flagyl) 500 mg in 100 mls @ 100 mls/hr IV Q8H [facility] Last Infusion: 06/20/21 07:04 Dose: 0 mls/hr Documented by: KURTIS Sodium Chloride (Ns) 1,000 mls @ 100 mls/hr IVCONT .Q10H [facility] Last Admin: 06/20/21 11:21 Dose: Not Given Documented by: KELIN Non-Admin Reason: IV Running Insulin Human Lispro (Insulin Lispro 100 Unit/Ml 3 Ml Vial) 0 unit SUBCUT QIDACHS [facility]; Protocol Last Admin: 06/20/21 12:07 Dose: 4 unit Documented by: KELIN Lisinopril (Lisinopril 40 Mg Tablet) 40 mg PO DAILY [facility]; Protocol Last Admin: 06/20/21 08:51 Dose: 40 mg Documented by: KELIN Loperamide HCl (Loperamide Hcl 2 Mg Capsule) 2 mg PO Q4H PRN PRN Reason: diarhea Last Admin: 06/19/21 15:32 Dose: 2 mg Documented by: COTREGLA Lorazepam (Lorazepam 1 Mg Tablet) 1 mg PO Q4H PRN PRN Reason: Breakthrough alcohol withdrawa Stop: 06/20/21 23:11 Magnesium Oxide (Magnesium Oxide 400 Mg Tablet) 800 mg PO DAILY [facility] Last Admin: 06/20/21 08:51 Dose: 800 mg Documented by: KELIN Melatonin (Melatonin 3 Mg Tablet) 6 mg PO BEDTIME PRN PRN Reason: Insomnia Morphine Sulfate (Morphine Sulfate 2 Mg/Ml Cartridge) 2 mg IVPUSH Q2H PRN; Protocol PRN Reason: severe pain Potassium Chloride (Potassium Chloride Packet 20 Meq Packet) 40 meq PO BID [facility] Last Admin: 06/20/21 08:50 Dose: 40 meq Documented by: KELIN Pyridoxine HCl (Pyridoxine Hcl (Vitamin B6) 50 Mg Tablet) 50 mg PO DAILY [facility] Last Admin: 06/20/21 08:51 Dose: 50 mg Documented by: KELIN Senna (Sennosides 8.6 Mg Tablet) 17.2 mg PO BEDTIME PRN PRN Reason: Constipation Sodium Chloride (0.9 % Sodium Chloride Flush 3 Ml Syringe) 3 ml IVFLUSH QSHIFT [facility] Last Admin: 06/20/21 08:52 Dose: 3 ml Documented by: KELIN Labs CBC & Chem 7: 06/20/21 05:21 06/20/21 05:21 Labs: Laboratory Results - last 24 hr 06/19/21 06/19/21 06/20/21 15:18 19:38 05:21 MCV 98.4 H MCH 33.1 H MCHC 33.7 RDW 17.4 H Plt Count 129 L MPV 11.2 Immature Gran % (Auto) 0.6 H Neut % (Auto) 60.4 Lymph % (Auto) 21.4 [place] % (Auto) 14.1 H Eos % (Auto) 2.9 Baso % (Auto) 0.6 Lymph # (Auto) 0.7 L [place] # (Auto) 0.5 Eos # (Auto) 0.1 Baso # (Auto) 0.0 Abs Immat Gran (auto) 0.02 Absolute Neuts (auto) 2.1 Absolute Nucleated RBC 0.000 Nucleated RBC % (auto) 0.0 Anion Gap Estim Creat Clear Calc Estimated GFR POC Glucose 134 H 205 H Fasting Glucose Calcium Magnesium Total Bilirubin AST ALT Alkaline Phosphatase Total Protein Albumin 06/20/21 06/20/21 06/20/21 05:21 07:11 10:57 MCV MCH MCHC RDW Plt Count MPV Immature Gran % (Auto) Neut % (Auto) Lymph % (Auto) [place] % (Auto) Eos % (Auto) Baso % (Auto) Lymph # (Auto) [place] # (Auto) Eos # (Auto) Baso # (Auto) Abs Immat Gran (auto) Absolute Neuts (auto) Absolute Nucleated RBC Nucleated RBC % (auto) Anion Gap 13 Estim Creat Clear Calc 106.9 Estimated GFR > 60 POC Glucose 138 H 212 H Fasting Glucose 144 H Calcium 7.8 L Magnesium 1.6 Total Bilirubin 0.9 AST 110 H ALT 55 H Alkaline Phosphatase 189 H D Total Protein 5.1 L Albumin 2.8 L Microbiology Microbiology Results: Microbiology 06/17/21 18:25 Stool Culture - Preliminary Stool Normal so far. Assessment and Plan (1) Colitis: Status: Acute (2) Hypokalemia: Status: Acute (3) Hypomagnesemia: Status: Acute (4) Diabetes type 2, controlled: Status: Acute (5) Essential hypertension: Status: Acute Plan hospital d#3 65yo M with HTN, HLD, DM2, recently admitted 05/25/21 for BRBPR; had colonoscopy showing hemorrhoids without any other possible source of bleeding; hemorrhoidectomy with rubber band ligation done 05/29/20 presenting with abd pain, admitted for colitis.Slowly improving....diarrhea persistant; some soft stool today 1.Acute colitis - ceftriaxone/metronidazole(4) - advance diet as tolerated -query ABTX worsening diarrhea 2.HypoMg/K - replete IV/PO and recheck Mg in am -difficult to maintain as long as diarrhea present 3.EtOH abuse - CIWA thus far negative 4.EtOH hepatitis - improving -trend in am 4. DMII -acceptable contyrol - correction-dose lispro 5.HTN -acceptable control on lisinopril -adjust as indicated VTE ppx - LMWH Full Code Will likely need 1-2 additional midnights given continued diarrhea and need for repletion of potassium and magnesium Quality Stroke Does the patient have a stroke diagnosis?: No VTE Prior VTE?: No VTE Risk Level:: Medical - moderate - high VTE Device Contraindication: Treatment Not Indicated VTE Drug Contraindication: N/A - Med Ordered
[2021-06-20 15:08] VITALS: BP 96/59; PULSE 82; RESP 18; TEMP 36.6; O2SAT 95
[2021-06-20 15:14] LABS: Glucose, Whole Blood 178 mg/dL (60-115)
[2021-06-20] MEDS: Loperamide HCl 2 MG CAPSULE PO (15:28)
[2021-06-20 19:48] LABS: Glucose, Whole Blood 170 mg/dL (60-115)
[2021-06-20] MEDS: cefTRIAXone sodium 1 GM in 0.9 % Sodium Chloride 50 ML IV (22:05)
[2021-06-20 23:22] VITALS: BP 100/60; PULSE 77; RESP 17; TEMP 36.6; O2SAT 96
[2021-06-21 06:08] LABS: Basophils Percent Auto 0.7 % (0-2); Hematocrit 30.5 % (42.0-52.0); Lymphocytes Percent Auto 22.6 % (20-40); Mean Corpuscular Volume 100.3 fL (80.0-98.0); Monocytes Absolute Auto 0.6 X10*3/uL (0.1-1.2); PLT CLUMP 1; Red Blood Count 3.04 X10*6/uL (4.60-5.80); SCAN SMEAR FLAG 1
[2021-06-21 06:10] LABS: Eosinophils Absolute Auto 0.2 X10*3/uL (0.0-0.4); Eosinophils Percent Auto 4.2 % (0-4); Hemoglobin 10.1 g/dl (14.0-18.0); Imm Gran Abs Auto 0.03 X10*3/uL (0.00-0.03); Imm Gran Pct Auto 0.7 % (0.0-0.4); Mean Corpuscular HGB Conc 33.1 g/dl (31.0-36.0); Mean Corpuscular Hemoglobin 33.2 pg (27.0-33.0); Mean Platelet Volume 11.6 fL (9.4-12.4); Monocytes Percent Auto 13.7 % (2-11); Neutrophils Absolute Auto 2.6 x10*3/uL (2.0-8.3); Neutrophils Percent Auto 58.1 % (45-73); Red Cell Distribution Width 18.8 % (11.0-16.0)
[2021-06-21 06:11] LABS: MANUAL DIFF FLAG NO; Platelet Count 119 X10*3/uL (160-400); White Blood Count 4.5 X10*3/uL (4.8-10.8)
[2021-06-21] MEDS: Loperamide HCl 2 MG CAPSULE PO (06:28)
[2021-06-21] MEDS: metroNIDAZOLE/NS 500 MG/100 ML PIGGYBACK 100 MG IV (06:29)
[2021-06-21] MEDS: 0.9 % Sodium Chloride 1,000 ML 100 ML IVCONT (06:30)
[2021-06-21 06:52] VITALS: BP 111/64; PULSE 70; RESP 18; TEMP 36.4; O2SAT 96
[2021-06-21 07:00] LABS: Glucose, Whole Blood 135 mg/dL (60-115)
[2021-06-21 07:05] LABS: Alanine Aminotransferase 50 U/L (0-40); Albumin Level 2.9 g/dL (3.5-5.0); Alkaline Phosphatase 185 U/L (39-117); Anion Gap 13 (12-20); Aspartate Amino Transferase 112 U/L (5-37); Bilirubin Total 0.9 mg/dL (0.0-1.0); Blood Urea Nitrogen 4 mg/dL (9-16); Calcium 7.8 mg/dL (8.4-10.2); Carbon Dioxide 26 mmol/L (22-29); Chloride 108 mmol/L (96-108); Creatinine Clr Calc Pharmacy 125.3; Estimated Glomerular Filt Rate > 60; Glucose Fasting 140 mg/dL (60-99); Magnesium 1.4 mg/dL (1.6-2.6); Potassium 4.1 mmol/L (3.3-5.1); Sodium 143 mmol/L (135-145); Total Protein 5.1 g/dL (6.5-8.0)
[2021-06-21] MEDS: Gabapentin 300 MG CAPSULE PO (07:35)
[2021-06-21] MEDS: lisinopriL 40 MG TABLET PO (07:36)
[2021-06-21] MEDS: Potassium Chloride Packet 20 MEQ PACKET 40 MEQ PO (07:36)
[2021-06-21] MEDS: Magnesium Oxide 400 MG TABLET 800 MG PO (07:36)
[2021-06-21] MEDS: Escitalopram Oxalate 20 MG TABLET PO (07:36)
[2021-06-21] MEDS: Pyridoxine HCl (Vitamin B6) 50 MG TABLET PO (07:36)
[2021-06-21] MEDS: Atorvastatin Calcium 80 MG TABLET PO (07:36)
[2021-06-21] MEDS: Magnesium Sulfate/H2O 2 GM/50 ML PIGGYBACK IV ×2 (09:30→13:27)
--- NOTE | 2021-06-21 10:51 | PC.NURSE ---
Skin/Wound assessment completed today. 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 Slight pinkness to bilateral buttocks.
--- NOTE | 2021-06-21 11:05 | P.DS_ITS ---
DS: Providers Provider Date of Service: 06/21/21 Date of admission: 06/16/21 22:49 Date of discharge: 06/21/21 Primary care physician: Balbir Schmid MD Consults: 06/16/21 23:11 Consult to General Surgery Routine Consulting Provider: Kris Owens Reason for consultation: history of hemorrhoids status post hemorrhoidectomy; GI bleed; colitis 06/18/21 13:39 Consult to Care Team Routine Comment: Reason for consultation: Etoh DS: Diagnosis Discharge Diagnosis (1) Colitis: Status: Acute (2) Hypokalemia: Status: Acute (3) Hypomagnesemia: Status: Acute (4) Diabetes type 2, controlled: Status: Acute (5) Essential hypertension: Status: Acute DS: Summary Hospital Course Hospital Course: 65-year-old male with a past medical history of hypertension, hyperlipidemia, diabetes, history of hemorrhoids, recent history of GI bleed hemorrhoids status post hemorrhoidectomy a alcohol abuse presented to the hospital with a chief complaint of abdominal pain. ? Patient mentions that he has been having abdominal discomfort going on for the past 2 days, diffuse in nature, crampy, no change in abdominal pain with bowel movements; denies any diarrhea.? Has nausea.? Denies any concerns for food poisoning. ER course: Abdomen/Pelvis CT? 06/16/21 20:24 IMPRESSION: ? 1. Mild wall thickening of the distal descending colon with minimal adjacent fat stranding which could represent very early colitis. No evidence of perforation or abscess formation. No small or large bowel structure. Unremarkable appendix. 2. Hepatomegaly and hepatic steatosis. 3. Cholelithiasis without evidence of acute cholecystitis. 4. No intra-abdominal mass, lymphadenopathy, or ascites.? ? Given ceftriaxone and Flagyl and request for admission Hospital Course Admitted on IV antibiotics and continue to improve. Was noted to have diffuse diarrhea requiring multiple repletion is a potassium and magnesium. On the day of discharge his electrolytes are stable and he is suitable for discharge home on oral Augmentin. He will follow up with PCP in 1-2 weeks Time Spent with Patient Time attestation: Total time spent providing and/or coordinating discharge services: Discharge coordination time: Greater than 30 minutes Quality: Stroke Does the patient have a stroke diagnosis?: No Physical Exam Vital Signs: Vital Signs: Last Vital Signs Temp 97.6 F 06/21/21 06:52 Pulse 70 06/21/21 06:52 Resp 18 06/21/21 06:52 BP 111/64 06/21/21 06:52 Pulse Ox 96 06/21/21 06:52 BMI result Body Mass Index 29.5 Const: Other: No acute distress Resp: Other: Clear to auscultation bilat...no rales rhonchi wheezes Cardio: Other: No S4;+S1/S2 no S3 M/R/G/ GI: Other: soft with milod diffuse tenderness across lower abd. BS x 4 quads Extrem: Other: No edema DS: Data Data Completed and Pending Completed studies during hospitalization [Text1]: Procedures Detoxification Services for Substance Abuse Treatment (05/26/21) Excision of Ascending Colon, Via Natural or Artificial Opening Endoscopic, Diagnostic (05/26/21) Excision of Esophagus, Via Natural or Artificial Opening Endoscopic, Diagnostic (05/26/21) Excision of Hemorrhoidal Plexus, Open Approach (05/26/21) Excision of Sigmoid Colon, Via Natural or Artificial Opening Endoscopic, Diagnostic (05/26/21) Excision of Stomach, Pylorus, Via Natural or Artificial Opening Endoscopic, Diagnostic (05/26/21) Excision of Transverse Colon, Via Natural or Artificial Opening Endoscopic, Diagnostic (05/26/21) Occlusion of Hemorrhoidal Plexus with Extraluminal Device, Via Natural or Art ificial Opening (05/26/21) Labs on day of discharge: Laboratory Results - last 24 hr 06/20/21 06/20/21 06/21/21 15:07 19:38 05:40 WBC 4.5 L RBC 3.04 L Hgb 10.1 L Hct 30.5 L MCV 100.3 H MCH 33.2 H MCHC 33.1 RDW 18.8 H Plt Count 119 L MPV 11.6 Immature Gran % (Auto) 0.7 H Neut % (Auto) 58.1 Lymph % (Auto) 22.6 [place] % (Auto) 13.7 H Eos % (Auto) 4.2 H Baso % (Auto) 0.7 Lymph # (Auto) 1.0 L [place] # (Auto) 0.6 Eos # (Auto) 0.2 Baso # (Auto) 0.0 Abs Immat Gran (auto) 0.03 Absolute Neuts (auto) 2.6 Absolute Nucleated RBC 0.000 Nucleated RBC % (auto) 0.0 Sodium Potassium Chloride Carbon Dioxide Anion Gap BUN Creatinine Estim Creat Clear Calc Estimated GFR POC Glucose 178 H 170 H Fasting Glucose Calcium Magnesium Total Bilirubin AST ALT Alkaline Phosphatase Total Protein Albumin 06/21/21 06/21/21 05:40 06:55 WBC RBC Hgb Hct MCV MCH MCHC RDW Plt Count MPV Immature Gran % (Auto) Neut % (Auto) Lymph % (Auto) [place] % (Auto) Eos % (Auto) Baso % (Auto) Lymph # (Auto) [place] # (Auto) Eos # (Auto) Baso # (Auto) Abs Immat Gran (auto) Absolute Neuts (auto) Absolute Nucleated RBC Nucleated RBC % (auto) Sodium 143 Potassium 4.1 D Chloride 108 Carbon Dioxide 26 Anion Gap 13 BUN 4 L D Creatinine 0.61 Estim Creat Clear Calc 125.3 Estimated GFR > 60 POC Glucose 135 H Fasting Glucose 140 H Calcium 7.8 L Magnesium 1.4 L* Total Bilirubin 0.9 AST 112 H ALT 50 H Alkaline Phosphatase 185 H Total Protein 5.1 L Albumin 2.9 L Preliminary micro results at discharge 06/17/21 18:25 Stool Culture - Preliminary Stool Normal so far. 06/16/21 21:14 Blood Culture - Preliminary Blood - Venous No growth after 48 hours. 06/16/21 21:14 Blood Culture - Preliminary Blood - Venous No growth after 48 hours. Discharge Plan Discharge Patient Disposition: Home, Self-Care Discharge Diagnosis: colitis Referrals: Balbir Schmid MD [Primary Care Provider] - 1 Week Discharge Medications: New amoxicillin-pot clavulanate 875-125 mg tablet 1 tab PO BID Qty: 14 0RF Continued atorvastatin 80 mg tablet 1 tab PO DAILY 0RF lansoprazole 30 mg capsule,delayed release(DR/EC) 1 cap PO DAILY 0RF lisinopril 40 mg tablet 1 tab PO DAILY 0RF magnesium oxide 400 mg (241.3 mg magnesium) tablet 800 mg PO DAILY Qty: 60 0RF alpha lipoic acid 100 mg Capsule 600 mg PO DAILY 0RF folic acid 1 mg tablet 1 mg PO DAILY 90 Days Qty: 90 3RF escitalopram oxalate 20 mg tablet 20 mg PO DAILY 90 Days Qty: 90 3RF thiamine HCl (vitamin B1) 100 mg tablet 100 mg PO DAILY 90 Days Qty: 90 3RF pyridoxine (vitamin B6) 50 mg tablet 50 mg PO DAILY 0RF gabapentin 300 mg capsule 300 mg PO TID 90 Days Qty: 270 3RF Synjardy XR 12.5-1,000 mg tablet, IR - ER, biphasic 24hr 2 tab PO DAILY 30 Days Qty: 60 6RF Discharge Orders: Discharge Order (Routine); Ordered 06/21/21 Ordered By: Kenneth Hillman Diet: advance to usual diet Activity on Discharge: As tolerated Stand Alone Forms: Patient Portal Discharge page Care Plan Goals: Complete course of Augmentin as ordered Health Concerns: Follow-up with Dr. merlos on all 1-2 weeks Plan of Treatment: Continue supplemental magnesium as ordered Assessment: As per D/C summary
[2021-06-21 11:57] LABS: Glucose, Whole Blood 149 mg/dL (60-115)
--- NOTE | 2021-06-21 14:05 | MHC.CM.PN ---
PT MEDICALLY CLEARED FOR D/C HOME NO SELF-CARE W/FAMILY FOR TRANSPORT.
== END 2021-06-21 16:01 | disposition home or self-care (01) | DRG 249 ==
LOC: HO.ED 20:48 → HO.EDOVER 23:18 → HO.S3 06-18 11:43
PROVIDERS: Family Medicine; Admitting Provider Hospitalist; Emergency Provider Emergency Medicine; PCP Family Medicine; Visit Provider Hospitalist
DX: K52.9 Noninfective gastroenteritis and colitis, unspecified (principal); E11.42 Type 2 diabetes mellitus with diabetic polyneuropathy; E11.51 Type 2 diabetes mellitus with diabetic peripheral angiopathy without gangrene; I10 Essential (primary) hypertension; F41.9 Anxiety disorder, unspecified; E78.5 Hyperlipidemia, unspecified; E83.42 Hypomagnesemia; F10.10 Alcohol abuse, uncomplicated; K70.10 Alcoholic hepatitis without ascites; K64.9 Unspecified hemorrhoids; E87.6 Hypokalemia; Z23 Encounter for immunization; F17.210 Nicotine dependence, cigarettes, uncomplicated; Z71.6 Tobacco abuse counseling; Z86.010 Personal history of colon polyps; Z20.822 Contact with and (suspected) exposure to COVID-19; Z79.84 Long term (current) use of oral hypoglycemic drugs; Z79.899 Other long term (current) drug therapy
CPT/HCPCS: 36415; 74176; 80048; 80053; 81001; 82077; 82140; 82247; 82272; 82607; 82746; 82947; 83605; 83690; 83735; 84450; 84460; 84484; 85025; 85027; 85610; 85730; 86140; 86850; 86900; 86901; 87040; 87045; 87046; 87493; 87635; 89055; 90686; 93005; 96365; 96366; 96367; 96375; 99285; J0696; J1650; J2405; J3411; J3475

== ENCOUNTER 2021-06-27 12:42 | Outpatient (REF) | payer OTHER, SELFPAY | END 2021-06-27 12:43 | disposition home or self-care (01) | LOC: HO.LAB 12:42 | PROVIDERS: Visit Provider Hospitalist | DX: R30.0 Dysuria (principal) | CPT/HCPCS: 87086 ==

== ENCOUNTER 2021-07-17 | Outpatient (REF) | payer OTHER, SELFPAY | END 2021-07-17 00:01 | disposition home or self-care (01) | LOC: HO.LNP | PROVIDERS: Visit Provider Hospitalist | DX: R19.5 Other fecal abnormalities (principal) | CPT/HCPCS: 87045; 87046; 87177; 87209 ==

== ENCOUNTER 2021-07-18 10:37 | Outpatient (REF) | payer OTHER, SELFPAY | END 2021-07-18 10:38 | disposition home or self-care (01) | LOC: HO.LAB 10:37 | PROVIDERS: Visit Provider Hospitalist | DX: Z13.89 Encounter for screening for other disorder (principal) ==

== ENCOUNTER 2021-08-06 18:29 | Outpatient (REF) | payer OTHER, SELFPAY | END 2021-08-06 18:30 | disposition home or self-care (01) | LOC: HO.LNP 18:29 | PROVIDERS: Visit Provider Hospitalist | DX: R30.0 Dysuria (principal) | CPT/HCPCS: 87086 ==

== ENCOUNTER 2021-08-07 08:48 | Outpatient (REF) | payer OTHER, SELFPAY ==
[2021-08-07 11:54] LABS: Alanine Aminotransferase 90 U/L (0-40); Alkaline Phosphatase 203 U/L (39-117); Anion Gap 22 (12-20); Aspartate Amino Transferase 130 U/L (5-37); Blood Urea Nitrogen 10 mg/dL (9-16); Calcium 8.7 mg/dL (8.4-10.2); Carbon Dioxide 30 mmol/L (22-29); Chloride 95 mmol/L (96-108); Estimated Glomerular Filt Rate 40; Glucose Random 142 mg/dL (60-115); Potassium 3.8 mmol/L (3.3-5.1); Sodium 143 mmol/L (135-145)
[2021-08-07 12:04] LABS: Estimated Average Glucose 94 mg/dL; Hemoglobin A1c % 4.9 %
== END 2021-08-07 08:49 | disposition home or self-care (01) ==
LOC: HO.WFDLDS 08:48
PROVIDERS: Visit Provider Hospitalist
DX: E11.649 Type 2 diabetes mellitus with hypoglycemia without coma (principal); R60.9 Edema, unspecified
CPT/HCPCS: 36415; 80053; 83036

== ENCOUNTER 2021-09-04 09:58 | Outpatient (REF) | payer OTHER, SELFPAY ==
[2021-09-04 12:08] LABS: Alanine Aminotransferase 163 U/L (0-40); Albumin Level 3.8 g/dL (3.5-5.0); Alkaline Phosphatase 248 U/L (39-117); Anion Gap 21 (12-20); Aspartate Amino Transferase 297 U/L (5-37); Bilirubin Total 2.9 mg/dL (0.0-1.0); Blood Urea Nitrogen 9 mg/dL (9-16); Calcium 8.2 mg/dL (8.4-10.2); Carbon Dioxide 32 mmol/L (22-29); Chloride 87 mmol/L (96-108); Estimated Glomerular Filt Rate > 60; Glucose Random 197 mg/dL (60-115); Potassium 2.7 mmol/L (3.3-5.1); Sodium 137 mmol/L (135-145); Total Protein 6.6 g/dL (6.5-8.0)
[2021-09-04 12:12] LABS: Prostate Specific Antigen Scr 3.02 ng/mL (<0.05-4.0)
== END 2021-09-04 09:59 | disposition home or self-care (01) ==
LOC: HO.WFDLDS 09:58
PROVIDERS: Visit Provider Family Medicine
DX: Z12.5 Encounter for screening for malignant neoplasm of prostate (principal); R79.89 Other specified abnormal findings of blood chemistry
CPT/HCPCS: 36415; 80053; 84153

== ENCOUNTER 2021-09-11 10:31 | Outpatient (REF) | payer OTHER, SELFPAY ==
[2021-09-11 13:50] LABS: MANUAL DIFF FLAG NO
[2021-09-11 13:55] LABS: Basophils Percent Auto 0.5 % (0-2); Eosinophils Absolute Auto 0.1 X10*3/uL (0.0-0.4); Eosinophils Percent Auto 0.8 % (0-4); Hematocrit 34.6 % (42.0-52.0); Hemoglobin 11.4 g/dl (14.0-18.0); Imm Gran Abs Auto 0.06 X10*3/uL (0.00-0.03); Lymphocytes Absolute Auto 1.8 X10*3/uL (1.2-4.9); Lymphocytes Percent Auto 29.9 % (20-40); Mean Corpuscular HGB Conc 32.9 g/dl (31.0-36.0); Mean Corpuscular Hemoglobin 34.8 pg (27.0-33.0); Mean Corpuscular Volume 105.5 fL (80.0-98.0); Mean Platelet Volume 11.5 fL (9.4-12.4); Monocytes Absolute Auto 0.5 X10*3/uL (0.1-1.2); Monocytes Percent Auto 7.8 % (2-11); NRBC Pct Auto 0.3 /100WBC (0.0-0.2); Neutrophils Absolute Auto 3.5 x10*3/uL (2.0-8.3); Platelet Count 252 X10*3/uL (160-400); Red Blood Count 3.28 X10*6/uL (4.60-5.80); Red Cell Distribution Width 13.8 % (11.0-16.0); White Blood Count 5.9 X10*3/uL (4.8-10.8)
[2021-09-11 14:05] LABS: Appearance Urine HAZY; Color Urine YELLOW; Glucose Urine UA 500 MG/DL (NEG); Leukocyte Esterase Urine NEG (NEG); Nitrite Urine NEG (NEG); PH 5.5 (5.0-8.0); Urine Blood NEG (NEG); Urine Ketones 5 MG/DL (NEG); Urine Protein 2+ MG/DL (NEG-TRACE)
[2021-09-11 14:16] LABS: Mucus Urine 2+ /LPF; RBC Urine 0 /HPF (0); Squamous Epithelial Cell Urine 1+ /LPF; WBC Urine 0 /HPF (0-4)
[2021-09-11 14:29] LABS: TSH reflex Free T4 3.38 uIU/mL (0.32-4.0)
[2021-09-11 14:45] LABS: Alanine Aminotransferase 134 U/L (0-40); Albumin Level 3.4 g/dL (3.5-5.0); Alkaline Phosphatase 242 U/L (39-117); Anion Gap 24 (12-20); Aspartate Amino Transferase 207 U/L (5-37); Bilirubin Total 2.3 mg/dL (0.0-1.0); Blood Urea Nitrogen 22 mg/dL (9-16); Calcium 8.3 mg/dL (8.4-10.2); Carbon Dioxide 25 mmol/L (22-29); Chloride 89 mmol/L (96-108); Estimated Glomerular Filt Rate 15; Glucose Random 176 mg/dL (60-115); Potassium 2.3 mmol/L (3.3-5.1); Sodium 136 mmol/L (135-145); Total Protein 6.2 g/dL (6.5-8.0)
== END 2021-09-11 10:32 | disposition home or self-care (01) ==
LOC: HO.WFDLDS 10:31
PROVIDERS: Visit Provider Family Medicine
DX: Z00.00 Encounter for general adult medical examination without abnormal findings (principal); R53.83 Other fatigue
CPT/HCPCS: 36415; 80053; 81001; 81003; 84443; 85025

== ENCOUNTER 2021-10-19 14:24 | Outpatient (REF) | payer OTHER, SELFPAY ==
[2021-10-19 16:00] LABS: Alanine Aminotransferase 39 U/L (0-40); Albumin Level 3.2 g/dL (3.5-5.0); Alkaline Phosphatase 180 U/L (39-117); Amylase 87 U/L (28-100); Aspartate Amino Transferase 104 U/L (5-37); Bilirubin Direct 1.5 mg/dL (0.0-0.5); Bilirubin Total 2.2 mg/dL (0.0-1.0); Lipase 54 U/L (8-78); Total Protein 6.2 g/dL (6.5-8.0)
[2021-10-19 16:21] LABS: Folate > 20.0 ng/mL (> or = 4.0); Vitamin B12 422 pg/mL (200-900)
[2021-10-23 15:25] LABS: FIB-ALT 33 U/L (9-46); FIB-Alpha-2-Macroglobulin 215 mg/dL (106-279); FIB-Apolipoprotein A1 142 mg/dL (94-176); FIB-GGT 762 U/L (3-70); FIB-Haptoglobin 169 mg/dL (43-212); Liver Fibrosis Score 0.84; Liver Fibrosis Stage F4; Nec Inflam Act Grade A1; Nec Inflam Act Score 0.31
[2021-10-25 16:03] LABS: Vitamin D 25-OH, D2 <4 ng/mL; Vitamin D 25-OH, D3 7 ng/mL; Vitamin D 25-OH, Total 7 ng/mL (30-100)
== END 2021-10-19 14:25 | disposition home or self-care (01) ==
LOC: HO.LAB 14:24
PROVIDERS: PCP Family Medicine; Visit Provider Nurse Practitioner Family
DX: R10.9 Unspecified abdominal pain (principal); R19.7 Diarrhea, unspecified; K21.9 Gastro-esophageal reflux disease without esophagitis; E55.9 Vitamin D deficiency, unspecified; R74.8 Abnormal levels of other serum enzymes
CPT/HCPCS: 36415; 80076; 81596; 82150; 82306; 82607; 82746; 83690

== ENCOUNTER 2021-10-22 13:50 | Outpatient (REF) | payer OTHER, SELFPAY ==
[2021-10-27 01:26] LABS: Fecal Fat Qualitative Normal (Normal)
[2021-10-29 21:45] LABS: Pancreatic Elastase-1 >500 mcg/g
== END 2021-10-22 13:51 | disposition home or self-care (01) ==
LOC: HO.LNP 13:50
PROVIDERS: Visit Provider Nurse Practitioner Family
DX: R10.9 Unspecified abdominal pain (principal); R19.7 Diarrhea, unspecified
CPT/HCPCS: 82656; 82705

== ENCOUNTER 2021-11-07 14:51 | Outpatient (REF) | payer OTHER, SELFPAY ==
[2021-11-07 15:59] LABS: Iron 34 mcg/dL (45-160); Percent Iron Saturation 8 % (15-50); Total Iron Binding Capacity 444 mcg/dL (228-428); Unsaturated Iron Binding 410 ug/dL
[2021-11-07 16:19] LABS: Ferritin 36 ng/mL (20-250)
[2021-11-08 07:56] LABS: HBS Num1 3.82 mIU/mL (0-7.99); HBc Num1 0.08 S/CO (0.00-0.79); HBsAGNum1 0.19 S/CO (0.00-0.99); Hepatitis B Core Antibody Nonreactive (Nonreactive); Hepatitis B Surface Antigen Negative (Negative); ~HepC Num1 0.06 S/CO (0.00-0.79); ~Hepatitis B Surface Antibody NONREACTIVE (Nonreactive); ~Hepatitis C Antibody Nonreactive (Nonreactive)
[2021-11-08 11:41] LABS: Alpha Fetoprotein 4.8 ng/mL (<6.1)
[2021-11-08 14:32] LABS: Ceruloplasmin 27 mg/dL (18-36)
[2021-11-09 07:53] LABS: ~Hepatitis A Antibody IgM Nonreactive (Nonreactive)
[2021-11-12 23:33] LABS: Smooth Muscle Antibody 46 U (<20)
== END 2021-11-07 14:52 | disposition home or self-care (01) ==
LOC: HO.LAB 14:51
PROVIDERS: PCP Family Medicine; Visit Provider Nurse Practitioner Family
DX: R79.89 Other specified abnormal findings of blood chemistry (principal); K58.9 Irritable bowel syndrome, unspecified; K92.2 Gastrointestinal hemorrhage, unspecified; R74.8 Abnormal levels of other serum enzymes
CPT/HCPCS: 36415; 82105; 82390; 82728; 83540; 86015; 86140; 86704; 86706; 86709; 86803; 87340; 87522

== ENCOUNTER 2021-11-13 08:48 | Outpatient (REF) | payer OTHER, SELFPAY ==
--- NOTE | ~2021-11-13 | US_ITS ---
EXAMINATION: US ABDOMEN LIMITED WITH LIVER ELASTOGRAPHY CLINICAL INFORMATION: Elevated liver enzymes. COMPARISON: None. TECHNIQUE: Real-time imaging of the abdominal viscera. Noninvasive ultrasound liver fibrosis assessment is performed using Oliver ElastPQ point quantification shear wave elastography (2D-SWE) with a C5-2 MHz transducer. Multiple elastography samples are obtained. FINDINGS: PANCREAS: Normal. The visualized pancreatic head and body are normal in appearance. The remainder of the pancreas is obscured from visualization by the overlying bowel gas. LIVER: The liver demonstrates normal size, contour and increased echogenicity. No focal lesion or intrahepatic biliary duct dilatation. The right lobe measures 20.7 cm in length. The left lobe measures 13.4 cm in length. Portal flow is hepatopedal. Shear wave liver elastography median stiffness is 2.96 m/s (reference: normal median stiffness is 1.3 m/s or less). IQR/median stiffness to assess sampling precision is 0.15 (reference: good quality data set is IQR/median stiffness of 0.15 or less). GALLBLADDER: The gallbladder is physiologically distended with echogenic sludge but no echogenic stones or pericholecystic fluid collection. Gallbladder wall thickness is 0.30 cm. COMMON BILE DUCT: Normal in caliber measuring 0.49 cm in diameter. RIGHT KIDNEY: Normal. No hydronephrosis. No renal calculi or focal parenchymal lesions. The kidney measures 13.3 cm in maximum dimension. FREE FLUID: None. US/US abdomen lezama w elastography IMPRESSION: 1. Echogenic liver with hepatopedal flow. No focal lesion seen. Echogenic gallbladder sludge. No echogenic stones seen. There is mild wall thickening. 2. Liver elastography: Median liver stiffness measures 2.96 m/s suggestive of CSPH. REFERENCE: Society of Radiologists in Ultrasound Liver Stiffness Thresholds (2020): LIVER STIFFNESS THRESHOLDS: *Liver Stiffness equal or less than 1.3 m/s: High probability of being normal. *Liver Stiffness less than 1.7 m/s: In the absence of other known clinical signs, rules out compensated advanced chronic liver disease. *Liver Stiffness 1.7-2.1 m/s: Suggestive of compensated advanced chronic liver disease but need further test for confirmation. *Liver Stiffness over 2.1 m/s: Rules in compensated advanced chronic liver disease. *Liver Stiffness over 2.4 m/s: Suggestive of clinically significant portal hypertension. QUALITY OF DATA SET: *IQR/Median value equal or less than 0.15 implies a quality data set. *IQR/Median value over 0.15 implies a poor quality data set. SIGNIFICANT CHANGE FROM PRIOR EXAM: Significant change if liver stiffness measurement is 10% or greater from prior exam. OTHER CONSIDERATIONS: The stage of liver fibrosis may be overestimated in the setting of acute hepatitis, liver inflammation, elevated liver function tests, hepatic vascular congestion, obstructive cholestasis, non-fasting state, and infiltrative diseases such as amyloidosis and lymphoma. In some patients with NAFLD, the liver stiffness thresholds for compensated advanced chronic liver disease may be lower. In causes other than viral hepatitis and NAFLD, liver stiffness thresholds are not well established.
--- NOTE | ~2021-11-13 | XR_ITS ---
EXAMINATION: XR CHEST CLINICAL INFORMATION: Smoking history COMPARISON: Previous one view chest x-ray May 2020 TECHNIQUE: 2 views of the chest were obtained. FINDINGS: The cardiac and mediastinal contours are normal. There is question of an upper lobe nodule seen on the lateral view just superior to the aortic arch. This measures 7 mm. The lungs are otherwise clear. There is no pleural effusion or pneumothorax. There are degenerative changes of the spine. XR/XR chest 2V IMPRESSION: Question upper lobe nodule seen on the lateral view. Follow-up chest CT should be considered.
== END 2021-11-13 08:49 | disposition home or self-care (01) ==
LOC: HO.US 08:48
PROVIDERS: Visit Provider Family Medicine
DX: F10.10 Alcohol abuse, uncomplicated (principal); F17.200 Nicotine dependence, unspecified, uncomplicated; R74.8 Abnormal levels of other serum enzymes
CPT/HCPCS: 71046; 76705; 76981

== ENCOUNTER 2021-11-26 11:38 | Outpatient (REF) | payer OTHER, SELFPAY ==
[2021-11-26 14:09] LABS: MANUAL DIFF FLAG NO
[2021-11-26 14:13] LABS: Basophils Absolute Auto 0.1 X10*3/uL (0.0-0.2); Basophils Percent Auto 0.7 % (0-2); Eosinophils Absolute Auto 0.3 X10*3/uL (0.0-0.4); Hematocrit 36.8 % (42.0-52.0); Hemoglobin 11.8 g/dl (14.0-18.0); Imm Gran Abs Auto 0.02 X10*3/uL (0.00-0.03); Imm Gran Pct Auto 0.3 % (0.0-0.4); Lymphocytes Absolute Auto 1.6 X10*3/uL (1.2-4.9); Lymphocytes Percent Auto 22.7 % (20-40); Mean Corpuscular HGB Conc 32.1 g/dl (31.0-36.0); Mean Corpuscular Hemoglobin 29.9 pg (27.0-33.0); Mean Corpuscular Volume 93.2 fL (80.0-98.0); Mean Platelet Volume 11.5 fL (9.4-12.4); Monocytes Absolute Auto 0.5 X10*3/uL (0.1-1.2); Monocytes Percent Auto 6.6 % (2-11); Neutrophils Absolute Auto 4.6 x10*3/uL (2.0-8.3); Neutrophils Percent Auto 65.7 % (45-73); Platelet Count 228 X10*3/uL (160-400); Red Blood Count 3.95 X10*6/uL (4.60-5.80); Red Cell Distribution Width 14.9 % (11.0-16.0)
[2021-11-26 14:26] LABS: Estimated Average Glucose 108 mg/dL; Hemoglobin A1c % 5.4 %
[2021-11-26 14:27] LABS: Alanine Aminotransferase 28 U/L (0-40); Albumin Level 3.7 g/dL (3.5-5.0); Alkaline Phosphatase 106 U/L (39-117); Anion Gap 14 (12-20); Aspartate Amino Transferase 29 U/L (5-37); Bilirubin Total 0.6 mg/dL (0.0-1.0); Blood Urea Nitrogen 9 mg/dL (9-16); Calcium 9.7 mg/dL (8.4-10.2); Carbon Dioxide 28 mmol/L (22-29); Chloride 105 mmol/L (96-108); Estimated Glomerular Filt Rate > 60; Glucose Random 185 mg/dL (60-115); Iron 69 mcg/dL (45-160); Percent Iron Saturation 14 % (15-50); Sodium 143 mmol/L (135-145); Total Iron Binding Capacity 484 mcg/dL (228-428); Total Protein 6.6 g/dL (6.5-8.0); Unsaturated Iron Binding 415 ug/dL
== END 2021-11-26 11:39 | disposition home or self-care (01) ==
LOC: HO.WFDLDS 11:38
PROVIDERS: Visit Provider Family Medicine
DX: Z00.00 Encounter for general adult medical examination without abnormal findings (principal); R74.8 Abnormal levels of other serum enzymes; R73.01 Impaired fasting glucose; D64.9 Anemia, unspecified
CPT/HCPCS: 36415; 80053; 83036; 83540; 85025

== ENCOUNTER 2021-12-14 08:54 | Outpatient (REF) | payer OTHER, SELFPAY ==
--- NOTE | ~2021-12-14 | CT_ITS ---
EXAMINATION: CT CHEST WITH CONTRAST CLINICAL INFORMATION: Pulmonary nodule COMPARISON: Previous chest x-ray most recent October 2021 TECHNIQUE: Multidetector volumetric CT imaging of the chest was obtained after the administration of 65 mL of Omnipaque 350 intravenous contrast without immediate adverse reactions. Axial MIP volume rendering provided. Sagittal and coronal reformatted images were obtained. This CT examination was performed using dose optimization techniques as appropriate, variously including the following: *Automated exposure control *Adjustment of mA and/or kV according to patient size (this includes techniques or standardized protocols for targeted exams where dose is matched to indication/reason for exam; i.e. extremities or head) *Use of iterative reconstruction technique DLP: 136 mGy-cm FINDINGS: LUNGS: No pulmonary nodule is seen. There are slight increased peripheral interstitial markings at the lung bases questionable for dependent atelectasis versus possible interstitial disease. No evidence of emphysema or bronchiectasis. No endobronchial or endotracheal lesion. MEDIASTINUM: Shotty mediastinal and bilateral hilar lymphadenopathy. No enlarged lymph nodes. Normal heart size. No pericardial effusion. Normal caliber thoracic aorta. Normal thyroid gland. CORONARY ARTERY CALCIFICATION: None visualized on this study. PLEURA: There is no pleural effusion. No pleural mass or thickening. AXILLA: No lymphadenopathy. There is asymmetric left-sided gynecomastia. UPPER ABDOMEN: Fatty infiltration of the liver. Small left renal cyst and stone.. OSSEOUS STRUCTURES: There are degenerative changes of the spine. CT/CT chest w IV con IMPRESSION: No pulmonary nodule seen. Asymmetric left-sided gynecomastia. Correlation with clinical exam and follow-up mammogram or ultrasound. Consider. Fleischner guidelines were followed.
[2021-12-14] MEDS: iohexoL 350 MG/ML 100 ML INFUS..BTL 65 ML IV (10:32)
== END 2021-12-14 08:55 | disposition home or self-care (01) ==
LOC: HO.CT 08:54
PROVIDERS: PCP Family Medicine; Visit Provider Family Medicine
DX: R91.1 Solitary pulmonary nodule (principal)
CPT/HCPCS: 71260; Q9967

== ENCOUNTER 2022-01-11 09:06 | Outpatient (REF) | payer OTHER, SELFPAY ==
[2022-01-11 10:26] LABS: Alanine Aminotransferase 14 U/L (0-40); Albumin Level 4.2 g/dL (3.5-5.0); Alkaline Phosphatase 80 U/L (39-117); Aspartate Amino Transferase 22 U/L (5-37); Bilirubin Direct 0.5 mg/dL (0.0-0.5); Bilirubin Total 1.6 mg/dL (0.0-1.0); Total Protein 7.3 g/dL (6.5-8.0)
[2022-01-13 12:02] LABS: HCV Log PCR <1.18 NOT DETECTED Log IU/mL (NOT DETECTED); HepC Viral Load <15 NOT DETECTED IU/mL (NOT DETECTED)
[2022-01-15 14:07] LABS: Mitochondrial Antibodies NEGATIVE (NEGATIVE)
[2022-01-15 14:22] LABS: Immunoglobulin G 1176 mg/dL (600-1540)
[2022-01-15 22:36] LABS: Smooth Muscle Antibody 26 U (<20)
== END 2022-01-11 09:07 | disposition home or self-care (01) ==
LOC: HO.LAB 09:06
PROVIDERS: PCP Family Medicine; Visit Provider Nurse Practitioner Family
DX: R10.9 Unspecified abdominal pain (principal); R79.89 Other specified abnormal findings of blood chemistry; R74.8 Abnormal levels of other serum enzymes; Z86.19 Personal history of other infectious and parasitic diseases
CPT/HCPCS: 36415; 80076; 82784; 86015; 86255; 86256; 87522

== ENCOUNTER → 2022-01-15 08:35 | Outpatient (BNVA) | payer OTHER, SELFPAY | PROVIDERS: PCP Family Medicine; Visit Provider Nurse Practitioner Family | DX: Z23 Encounter for immunization (principal); K74.60 Unspecified cirrhosis of liver | CPT/HCPCS: 90471; 90472; 90632; 90746 ==

== ENCOUNTER → 2022-01-23 11:21 | Day surgery (SDC) | payer OTHER, SELFPAY ==
--- NOTE | ~2022-01-23 | US_ITS ---
EXAMINATION: ULTRASOUND-GUIDED LIVER BIOPSY CLINICAL INFORMATION: Elevated ASMA. Rule out autoimmune hepatitis. COMPARISON: Previous CT of the abdomen and pelvis 05/2021 and abdominal ultrasound 10/2021. TECHNIQUE: Procedure and risks and benefits including bleeding and infection were discussed with the patient and informed consent was obtained. The right upper quadrant was prepped and draped in the usual sterile fashion. The skin and soft tissues were anesthetized with 1% lidocaine plain. Using ultrasound guidance and a coaxial system, access to the right lobe of the liver was obtained. 3 20-gauge core biopsies were obtained. There is no complication. The patient received Versed 1 mg and fentanyl 50 mcg intravenously during the procedure. Conscious sedation was provided by a registered nurse under my direct supervision. Total sedation time was 10 minutes. FINDINGS: No fluid collection or hematoma post liver biopsy is seen. US/US biopsy liver IMPRESSION: Ultrasound-guided liver biopsy.
[2022-01-23 11:56] VITALS: BMI 25.1
[2022-01-23 12:46] LABS: MANUAL DIFF FLAG NO
[2022-01-23 12:47] LABS: Basophils Absolute Auto 0.1 X10*3/uL (0.0-0.2); Basophils Percent Auto 0.8 % (0-2); Eosinophils Absolute Auto 0.1 X10*3/uL (0.0-0.4); Eosinophils Percent Auto 1.4 % (0-4); Hematocrit 45.4 % (42.0-52.0); Hemoglobin 13.8 g/dl (14.0-18.0); Imm Gran Abs Auto 0.01 X10*3/uL (0.00-0.03); Imm Gran Pct Auto 0.1 % (0.0-0.4); Lymphocytes Absolute Auto 2.4 X10*3/uL (1.2-4.9); Lymphocytes Percent Auto 27.5 % (20-40); Mean Corpuscular HGB Conc 30.4 g/dl (31.0-36.0); Mean Corpuscular Hemoglobin 25.8 pg (27.0-33.0); Mean Corpuscular Volume 84.9 fL (80.0-98.0); Mean Platelet Volume 9.7 fL (9.4-12.4); Monocytes Absolute Auto 0.5 X10*3/uL (0.1-1.2); Monocytes Percent Auto 5.9 % (2-11); Neutrophils Absolute Auto 5.6 x10*3/uL (2.0-8.3); Neutrophils Percent Auto 64.3 % (45-73); Platelet Count 229 X10*3/uL (160-400); Red Blood Count 5.35 X10*6/uL (4.60-5.80); Red Cell Distribution Width 16.7 % (11.0-16.0); White Blood Count 8.7 X10*3/uL (4.8-10.8)
[2022-01-23 12:53] LABS: INTERNATIONAL NORM RATIO 1.1 (0.9-1.1); Prothrombin Time 12.3 SEC (10.0-13.1)
[2022-01-23 12:56] LABS: Partial Thromboplastin Time 32.5 SEC (26.0-36.4)
[2022-01-23 13:37] LABS: Glucose, Whole Blood 113 mg/dL (60-115)
[2022-01-23] MEDS: Lidocaine HCl 1 % MPF 5 ML VIAL 10 ML SUBCUT (14:11)
--- NOTE | 2022-01-23 14:12 | HO.RADPN ---
RADIOLOGY Narrative Narrative: Right lobe liver biopsy using coaxial system. 3 20g core biopsies obtained. No complication.
[2022-01-23 14:19] VITALS: BP 137/75; PULSE 66; RESP 16; TEMP 37.2; O2SAT 95
[2022-01-23 14:34] VITALS: BP 132/74; PULSE 67; RESP 18; O2SAT 94
[2022-01-23 14:49] VITALS: BP 148/81; PULSE 85; RESP 18; O2SAT 95
[2022-01-23 15:19] VITALS: BP 139/76; PULSE 78; RESP 18; O2SAT 96
[2022-01-23 16:19] VITALS: BP 126/68; PULSE 79; RESP 20; TEMP 37.2; O2SAT 95
== END ==
PROVIDERS: PCP Family Medicine; Visit Provider Radiology Diagnostic Radiology
DX: K74.60 Unspecified cirrhosis of liver (principal); F10.10 Alcohol abuse, uncomplicated; R76.0 Raised antibody titer; R74.8 Abnormal levels of other serum enzymes; I10 Essential (primary) hypertension; R79.89 Other specified abnormal findings of blood chemistry; I73.9 Peripheral vascular disease, unspecified; E11.42 Type 2 diabetes mellitus with diabetic polyneuropathy; Z79.84 Long term (current) use of oral hypoglycemic drugs; Z79.899 Other long term (current) drug therapy; Z88.8 Allergy status to other drugs, medicaments and biological substances; F17.210 Nicotine dependence, cigarettes, uncomplicated
CPT/HCPCS: 36415; 47000; 76942; 82947; 85025; 85610; 85730; 88307; 88313; 99152; J2250; J3010

== ENCOUNTER → 2022-02-15 08:40 | Outpatient (BNVA) | payer OTHER, SELFPAY | PROVIDERS: PCP Family Medicine; Referring Provider Family Medicine; Visit Provider Nurse Practitioner Family | DX: Z23 Encounter for immunization (principal); K74.60 Unspecified cirrhosis of liver | CPT/HCPCS: 90471; 90746 ==

== ENCOUNTER 2022-03-29 09:48 | Outpatient (REF) | payer OTHER, SELFPAY ==
[2022-03-29 11:10] LABS: MANUAL DIFF FLAG NO
[2022-03-29 11:20] LABS: Basophils Absolute Auto 0.1 X10*3/uL (0.0-0.2); Basophils Percent Auto 1.1 % (0-2); Eosinophils Absolute Auto 0.2 X10*3/uL (0.0-0.4); Eosinophils Percent Auto 2.2 % (0-4); Hematocrit 49.8 % (42.0-52.0); Hemoglobin 15.4 g/dl (14.0-18.0); Imm Gran Abs Auto 0.02 X10*3/uL (0.00-0.03); Imm Gran Pct Auto 0.3 % (0.0-0.4); Lymphocytes Absolute Auto 2.4 X10*3/uL (1.2-4.9); Lymphocytes Percent Auto 32.4 % (20-40); Mean Corpuscular HGB Conc 30.9 g/dl (31.0-36.0); Mean Corpuscular Hemoglobin 26.5 pg (27.0-33.0); Mean Corpuscular Volume 85.6 fL (80.0-98.0); Mean Platelet Volume 10.7 fL (9.4-12.4); Monocytes Absolute Auto 0.7 X10*3/uL (0.1-1.2); Monocytes Percent Auto 8.8 % (2-11); Neutrophils Absolute Auto 4.1 x10*3/uL (2.0-8.3); Neutrophils Percent Auto 55.2 % (45-73); Platelet Count 225 X10*3/uL (160-400); Red Blood Count 5.82 X10*6/uL (4.60-5.80); Red Cell Distribution Width 18.6 % (11.0-16.0); White Blood Count 7.4 X10*3/uL (4.8-10.8)
[2022-03-29 12:47] LABS: Anion Gap 15 (12-20); Blood Urea Nitrogen 11 mg/dL (9-16); Calcium 10.2 mg/dL (8.4-10.2); Carbon Dioxide 29 mmol/L (22-29); Chloride 97 mmol/L (96-108); Estimated Glomerular Filt Rate > 60; Glucose Random 200 mg/dL (60-115); Sodium 137 mmol/L (135-145)
== END 2022-03-29 09:49 | disposition home or self-care (01) ==
LOC: HO.WFDLDS 09:48
PROVIDERS: Visit Provider Family Medicine
DX: Z01.818 Encounter for other preprocedural examination (principal)
CPT/HCPCS: 36415; 80048; 85025

== ENCOUNTER 2022-06-17 08:53 | Outpatient (REF) | payer OTHER, SELFPAY ==
[2022-06-17 11:38] LABS: Alanine Aminotransferase 31 U/L (0-40); Albumin Level 4.2 g/dL (3.5-5.0); Alkaline Phosphatase 88 U/L (39-117); Aspartate Amino Transferase 30 U/L (5-37); Bilirubin Direct 0.4 mg/dL (0.0-0.5); Bilirubin Total 1.5 mg/dL (0.0-1.0); Total Protein 7.1 g/dL (6.5-8.0)
[2022-06-17 12:09] LABS: Folate > 20.0 ng/mL (> or = 4.0); Vitamin B12 319 pg/mL (200-900)
[2022-06-20 23:04] LABS: Vitamin D 25-OH, D2 <4 ng/mL; Vitamin D 25-OH, D3 16 ng/mL; Vitamin D 25-OH, Total 16 ng/mL (30-100)
== END 2022-06-17 08:54 | disposition home or self-care (01) ==
LOC: HO.LAB 08:53
PROVIDERS: PCP Family Medicine; Visit Provider Nurse Practitioner Family
DX: R10.9 Unspecified abdominal pain (principal); E55.9 Vitamin D deficiency, unspecified; R19.7 Diarrhea, unspecified; K70.30 Alcoholic cirrhosis of liver without ascites; K21.9 Gastro-esophageal reflux disease without esophagitis
CPT/HCPCS: 36415; 80076; 82306; 82607; 82746

== ENCOUNTER 2022-06-28 14:36 | Outpatient (REF) | payer OTHER, SELFPAY ==
--- NOTE | ~2022-06-28 | US_ITS ---
EXAMINATION: US ABDOMEN LIMITED CLINICAL INFORMATION: Unspecified cirrhosis of liver. COMPARISON: Ultrasound abdomen limited 11/13/2021. TECHNIQUE: Real-time imaging of the right upper quadrant abdominal viscera. FINDINGS: PANCREAS: Visualized portions of the pancreas are unremarkable. The pancreatic tail is obscured by bowel gas. LIVER: Liver is enlarged measuring 19.9 cm in span. The liver contour is normal. There is diffuse increased liver parenchymal echogenicity, consistent with infiltrative hepatocellular disease. No focal hepatic lesion. There is no intrahepatic biliary duct dilatation seen. GALLBLADDER: Cholelithiasis. Negative sonographic Arteaga sign. The gallbladder is physiologically distended. Multiple mobile gallstones are present. No evidence of gallbladder wall thickening or pericholecystic fluid. COMMON BILE DUCT: Normal in caliber measuring 0.4 cm in diameter. RIGHT KIDNEY: Normal. No hydronephrosis. No renal calculi or focal parenchymal lesions. The kidney measures 13.7 cm in maximum dimension. FREE FLUID: None. US/US abdomen limited IMPRESSION: Cholelithiasis without evidence of acute cholecystitis. Hepatomegaly. Increased hepatic echogenicity which can be seen in the setting of hepatic steatosis or underlying liver disease.
== END 2022-06-28 14:37 | disposition home or self-care (01) ==
LOC: HO.US 14:36
PROVIDERS: PCP Family Medicine; Visit Provider Nurse Practitioner Family
DX: K74.60 Unspecified cirrhosis of liver (principal)
CPT/HCPCS: 76705

== ENCOUNTER 2022-07-24 11:44 | Outpatient (REF) | payer OTHER, SELFPAY ==
[2022-07-24 13:49] LABS: MANUAL DIFF FLAG NO
[2022-07-24 14:02] LABS: Basophils Absolute Auto 0.1 X10*3/uL (0.0-0.2); Basophils Percent Auto 0.9 % (0-2); Eosinophils Absolute Auto 0.2 X10*3/uL (0.0-0.4); Eosinophils Percent Auto 2.3 % (0-4); Hematocrit 52.6 % (42.0-52.0); Hemoglobin 17.7 g/dl (14.0-18.0); Imm Gran Abs Auto 0.08 X10*3/uL (0.00-0.03); Lymphocytes Absolute Auto 2.4 X10*3/uL (1.2-4.9); Mean Corpuscular HGB Conc 33.7 g/dl (31.0-36.0); Mean Corpuscular Hemoglobin 32.5 pg (27.0-33.0); Mean Corpuscular Volume 96.5 fL (80.0-98.0); Mean Platelet Volume 11.4 fL (9.4-12.4); Monocytes Absolute Auto 0.6 X10*3/uL (0.1-1.2); Neutrophils Absolute Auto 4.4 x10*3/uL (2.0-8.3); Neutrophils Percent Auto 56.8 % (45-73); Platelet Count 179 X10*3/uL (160-400); Red Blood Count 5.45 X10*6/uL (4.60-5.80); Red Cell Distribution Width 13.2 % (11.0-16.0); White Blood Count 7.7 X10*3/uL (4.8-10.8)
== END 2022-07-24 11:45 | disposition home or self-care (01) ==
LOC: HO.WFDLDS 11:44
PROVIDERS: Visit Provider Nurse Practitioner Family
DX: Z01.818 Encounter for other preprocedural examination (principal)
CPT/HCPCS: 36415; 85025

== ENCOUNTER 2022-09-10 11:33 | Outpatient (REF) | payer OTHER, SELFPAY ==
[2022-09-10 14:25] LABS: Estimated Average Glucose 217 mg/dL; Hemoglobin A1c % 9.2 %
[2022-09-10 14:52] LABS: Alanine Aminotransferase 37 U/L (0-40); Albumin Level 3.9 g/dL (3.5-5.0); Alkaline Phosphatase 90 U/L (39-117); Anion Gap 17 (12-20); Aspartate Amino Transferase 34 U/L (5-37); Bilirubin Total 1.3 mg/dL (0.0-1.0); Blood Urea Nitrogen 6 mg/dL (9-16); Calcium 9.6 mg/dL (8.4-10.2); Carbon Dioxide 26 mmol/L (22-29); Chloride 101 mmol/L (96-108); Cholesterol 236 mg/dL; Estimated Glomerular Filt Rate > 60; Glucose Fasting 209 mg/dL (60-99); HDL Cholesterol 62 mg/dL; LDL Cholesterol Calculated 121 mg/dl; Potassium 3.7 mmol/L (3.3-5.1); Sodium 140 mmol/L (135-145); Total Protein 7.5 g/dL (6.5-8.0); Triglycerides 266 mg/dL
[2022-09-10 15:02] LABS: Prostate Specific Antigen Scr 2.93 ng/mL (<0.05-4.0)
[2022-09-10 15:05] LABS: Appearance Urine Clear; Color Urine Dark Yellow; Glucose Urine UA >=1000 mg/dL (Negative); Leukocyte Esterase Urine Negative (Negative); Nitrite Urine Negative (Negative); Specific Gravity - Urine 1.025 (1.005-1.025); UMIC TRIGGER UA YES; Urine Blood Negative (Negative); Urine Ketones Trace mg/dL (Negative); Urine Protein Negative (Neg-Trace)
[2022-09-10 15:15] LABS: Bacteria Urine None Seen (None Seen); Hyaline Casts Urine 0-2 /LPF (0-2); RBC Urine 0-2 /HPF (0-2); Squamous Epithelial Cell Urine 0-2 /HPF (0-2); WBC Urine 0-5 /HPF (0-5)
[2022-09-10 15:45] LABS: Creatinine Urine 149.03 mg/dL; Microalbum/Creatinine Ratio Ur 15.4 ug/mg cr
== END 2022-09-10 11:34 | disposition home or self-care (01) ==
LOC: HO.WFDLDS 11:33
PROVIDERS: Visit Provider Family Medicine
DX: Z00.00 Encounter for general adult medical examination without abnormal findings (principal); Z12.5 Encounter for screening for malignant neoplasm of prostate; R73.01 Impaired fasting glucose; I10 Essential (primary) hypertension
CPT/HCPCS: 36415; 80053; 80061; 81001; 81003; 82043; 83036; 84153; 84443

== ENCOUNTER 2022-12-18 08:47 | Outpatient (AMB) | payer MEDICARE, SELFPAY ==
--- NOTE | 2022-12-18 08:53 | MHC.OFFVIS ---
Intake Vital Signs 12/18/22 09:10 Height 5 ft 11 in Weight 210 lb 12.191 oz BMI 29.4 BP 147/78 H Blood Pressure Location Rt brachial Position Sitting Pulse 79 Intake Visit Reasons: 6 month fu Intake Note: Patient presents to in office visit visit 6 months follow up of Cirrhosis. Patient had labs and US done on 06/28/22. CC: Reports occasional lower back pain occasionally, denies other GI symptoms today. Tube Drawing Supervisor Required: No Accompanied by: Self / Same As Patient Allergies niacin [NIACIN] Adverse Reaction (Mild, Verified 09/06/22 09:12) RED FLUSH, SHAKING HPI 6 month fu HPI Details LAST VISIT: Cirrhosis Patient reports that she continues to be sober. Weight gain in the past few months of 35 lb. Discussed with patient the importance of losing weight and eating healthier. Will repeat blood work today. Limited ultrasound ordered to evaluate his liver. Last blood work showed normal liver enzymes GERD (gastroesophageal reflux disease) Patient can continue Nexium. He reports that this has been working. Denies any dyspepsia dysphagia or odynophagia. Discussed with patient avoiding dietary triggers and late night snacking. Staying upright for minimal 3 hours after meals discussed with patient. I will see patient in 6 months, sooner on as needed basis. Patient is agreeable to this plan and verbalizes understanding of instructions. He was given the opportunity to ask questions all questions answered. ? TODAY'S VISIT Patient is here today for follow-up. Patient reports that he has been feeling well. Liver enzymes are normal. Patient continues to be abstinent from alcohol. Patient however reports that he is trying to avoid food that is high in fat. Unable to lose weight total of 35 lb gain in the last year. Patient denies abdominal distension, patient denies any GI concerning symptoms. Reports that occasionally he will have blood after bowel movement when wiping. Patient denies being constipated. COUNT INCLUDES THE [facility] Medical History Bleeding hemorrhoids Transaminitis Hemorrhoids without complication History of alcohol abuse Diabetes type 2, uncontrolled PVD (peripheral vascular disease) Diabetic polyneuropathy associated with type 2 diabetes mellitus Diabetes type 2, controlled Alcohol abuse Hypertension Neuropathy Diabetes Depression Anxiety Surgical History H/O colonoscopy Family History Mother No problems noted. Father No problems noted. Social History Household Members: Family Housing: House Do you presently have visiting nurse or other home services: No Alcohol intake: former Patient Tobacco Use Status: Current everyday Tobacco user (states he has been weaning off slowly. ) Tobacco use type: Cigarette Cigarettes Per Day: 4 Years Smoked: 50 e-Cigarette/Vaping Use: Never Used Second Hand Smoke Exposure: Yes service: No Current occupational status: retired Current occupational exposures/hazards: No Cognitive needs: Yes (cane) Hearing needs: No Vision needs: Yes (reading glasses) Review of Systems Const Denies weight gain and Denies weight loss ENT Reports no additional complaints, Denies dysphagia and Denies odynophagia Card Reports no additional complaints Resp Reports no additional complaints GI Denies abdominal pain, Denies belching, Denies melena, Denies bloating, Reports hematochezia (Occasional), Denies change in bowel habits, Denies dysphagia, Denies excessive flatus, Denies dyspepsia, Denies heartburn, Denies diarrhea, Denies loose stools, Denies nausea, Denies odynophagia and Denies vomiting Reports no additional complaints Musc Reports no additional complaints Neuro Reports no additional complaints Psych Reports no additional complaints Endo Reports no additional complaints Physical Exam Vital Signs: Last Vital Signs Pulse 79 12/18/22 09:10 BP 147/78 H 12/18/22 09:10 BMI result Body Mass Index 29.4 Const General: healthy appearing, no acute distress and well developed Nutritional Appearance: obese Orientation/consciousness: patient oriented x3 HEENT Head: Yes normal to inspection, Yes normocephalic and Yes atraumatic Face and sinus: Yes normal facial exam Mouth: Normal oral and palatal mucosa present Throat: Yes posterior oropharynx normal, Yes tonsils normal and Yes uvula midline Eyes General: appearance normal, both eyes and all related structures Neck Neck: Yes normal visual inspection, Yes full ROM and Yes trachea midline Thyroid: Thyroid normal Resp Effort & Inspection: normal respiratory effort, able to speak in complete sentences, no tracheal deviation and symmetric chest movement Auscultation: clear to auscultation bilaterally Cardio Rate: regular rate Heart sounds: S1 normal heart sound present and S2 normal heart sound present GI Inspection: Yes normal to inspection, No distended and Yes obesity Palpation (GI): Soft to palpation, not firm, nontender and No hepatosplenomegaly present Auscultation: normal bowel sounds General: Yes no CVA tenderness Back/Spine/Pelvis Back: no CVA tenderness Skin General skin exam: elasticity normal, turgor normal and dry skin Neuro General: patient oriented x3 Psych Appearance: grossly normal Mental Status: mental status grossly normal Speech and movement: Normal speech and movement present Assessment & Plan Assessment & Plan (1) Cirrhosis: Code(s): K74.60 - Unspecified cirrhosis of liver Qualifiers: Hepatic cirrhosis type: alcoholic cirrhosis Ascites presence: without ascites Qualified Code(s): K70.30 - Alcoholic cirrhosis of liver without ascites Plan: Continue high-protein low-fat diet. List of food recommended given to patient. Patient was encouraged to lose weight (2) History of alcohol abuse: Code(s): F10.11 - Alcohol abuse, in remission Plan: Continue abstinence from alcohol. Patient reports that he has been doing well even though it is hard (3) Hemorrhoid: Code(s): K64.9 - Unspecified hemorrhoids Qualifiers: Hemorrhoid type: unspecified Qualified Code(s): K64.9 - Unspecified hemorrhoids Plan: Hemorrhoidectomy in May of last year. Patient reports occasional blood on the tissue when wiping after bowel movement. Will send script for Colace and proximal so. I will see patient in 6 months, sooner on as needed basis. Patient is agreeable to this plan and verbalizes understanding of instructions. He was given the opportunity to ask questions and all questions answered. Thank you for allowing me to participate in his care Medications: New hydrocortisone 2.5% (Proctosol HC) 1 appl [place] BID-QID PRN 30 grams 2RF hemorrhoids K64.9 - Unspecified hemorrhoids docusate sodium 100 mg PO BEDTIME 90 caps 3RF K59.00 - Constipation, unspecified Coding Level of Care Code Est Pt Level 3 (43072) Diagnoses Alcoholic cirrhosis of liver without ascites K70.30 Hepatic cirrhosis type: alcoholic cirrhosis Ascites presence: without ascites History of alcohol abuse F10.11 Hemorrhoids, unspecified hemorrhoid type K64.9 Hemorrhoid type: unspecified Time Spent (min) 25 Comment 15 minutes spent with patient and additional 10 minutes spent reviewing his records
[2022-12-18 09:10] VITALS: BP 147/78; PULSE 79; BMI 29.4
== END 2022-12-18 09:34 | disposition home or self-care (01) ==
PROVIDERS: PCP Family Medicine; Visit Provider Nurse Practitioner Family
DX: K70.30 Alcoholic cirrhosis of liver without ascites (principal); F10.11 Alcohol abuse, in remission; K64.9 Unspecified hemorrhoids
CPT/HCPCS: 99213

== ENCOUNTER → 2022-12-18 08:47 | Outpatient (BNVA) | payer OTHER, SELFPAY | PROVIDERS: PCP Family Medicine; Visit Provider Nurse Practitioner Family ==

== ENCOUNTER 2023-01-01 11:52 | Outpatient (REF) | payer MEDICARE, BC, SELFPAY ==
[2023-01-01 14:37] LABS: Appearance Urine Clear; Color Urine Yellow; Glucose Urine UA >=1000 mg/dL (Negative); Leukocyte Esterase Urine Negative (Negative); Nitrite Urine Negative (Negative); Specific Gravity - Urine >= 1.030 (1.005-1.025); UMIC TRIGGER UA YES; Urine Blood Negative (Negative); Urine Ketones Trace mg/dL (Negative); Urine Protein Negative (Neg-Trace)
[2023-01-01 14:39] LABS: Bacteria Urine None Seen (None Seen); Hyaline Casts Urine 0-2 /LPF (0-2); RBC Urine 0-2 /HPF (0-2); Squamous Epithelial Cell Urine 0-2 /HPF (0-2); WBC Urine 0-5 /HPF (0-5)
== END 2023-01-01 11:53 | disposition home or self-care (01) ==
LOC: HO.WFDLDS 11:52
PROVIDERS: Visit Provider Family Medicine
DX: Z00.00 Encounter for general adult medical examination without abnormal findings (principal)
CPT/HCPCS: 81001

== ENCOUNTER 2023-01-06 11:44 | Outpatient (AMB) | payer MEDICARE, SELFPAY ==
[2023-01-06 11:47] VITALS: BP 132/72; PULSE 83; O2SAT 95; BMI 29.4
--- NOTE | 2023-01-06 11:47 | MHC.PC.OV ---
Vital Signs 01/06/23 11:47 Height 5 ft 11 in Weight 211 lb 2 oz BMI 29.4 BP 132/72 Blood Pressure Location Lt brachial Position Sitting Pulse 83 Pulse Source Pulse Oximeter Pulse Oximetry (%) 95 Oxygen Delivery Method Room Air Intake Visit Reasons: f/u diabetes and hypertension Intake Note: Patient is here for diabetes and hypertension follow up. Allergies niacin [NIACIN] Adverse Reaction (Mild, Verified 01/06/23 11:49) RED FLUSH, SHAKING Medication List - Last Reconciled 01/06/23 by Balbir Schmid MD alpha lipoic acid 600 mg (6 x 100 mg) PO DAILY amlodipine 5 mg PO DAILY 30 days atorvastatin 1 tab PO DAILY cholecalciferol (vitamin D3) 50 mcg PO DAILY docusate sodium 100 mg PO BEDTIME dulaglutide 1.5 mg (0.5 mL) subcut QWEEK 28 days escitalopram oxalate 20 mg PO DAILY 90 days esomeprazole magnesium (Nexium) 40 mg PO DAILY folic acid 1 mg PO DAILY 90 days hydrochlorothiazide 12.5 mg (1/2 x 25 mg) PO DAILY 30 days hydrocortisone 2.5% (Proctosol HC) 1 appl DC BID-QID PRN lisinopril 40 mg PO DAILY 30 days magnesium oxide 800 mg (2 x 400 mg (241.3 mg magnesium)) PO DAILY methylcellulose (laxative) (Fiber Laxative (methylcellulose)) 500 mg PO DAILY pyridoxine (vitamin B6) 50 mg PO DAILY thiamine HCl (vitamin B1) 100 mg PO DAILY 90 days Tobacco use date assessed: 05/31/22 Fall risk assessment: No Falls in past year Last assessed Fall Risk: 01/06/23 HPI f/u diabetes and hypertension HPI Details A1c?has?increased?further?and?now?at?9.6%?despite?increasing?Trulicity. Patient's?visitor services representative?saw?him?in?November?and?exam?showed?no?diabetic?retinopathy. [facility] Medical History Bleeding hemorrhoids Transaminitis Hemorrhoids without complication History of alcohol abuse Diabetes type 2, uncontrolled PVD (peripheral vascular disease) Diabetic polyneuropathy associated with type 2 diabetes mellitus Diabetes type 2, controlled Alcohol abuse Hypertension Neuropathy Diabetes Depression Anxiety Surgical History H/O colonoscopy Family History Mother No problems noted. Father No problems noted. Social History Household Members: Family Housing: House Do you presently have visiting nurse or other home services: No Alcohol intake: former Patient Tobacco Use Status: Current everyday Tobacco user (states he has been weaning off slowly. ) Tobacco use type: Cigarette Cigarettes Per Day: 4 Years Smoked: 50 e-Cigarette/Vaping Use: Never Used Second Hand Smoke Exposure: Yes service: No Current occupational status: retired Current occupational exposures/hazards: No Cognitive needs: Yes (cane) Hearing needs: No Vision needs: Yes (reading glasses) Questionnaire PHQ-9 Over the last 2 weeks, how often have you been bothered by any of the following problems? 1. Little interest or pleasure in doing things: not at all 2. Feeling down, depressed, or hopeless: not at all 3. Trouble falling or staying asleep, or sleeping too much: several days 4. Feeling tired or having little energy: several days 5. Poor appetite or overeating: not at all 6. Feeling bad about yourself - or that you are a failure or have let yourself or your family down: not at all 7. Trouble concentrating on things, such as reading the newspaper or watching television: not at all 8. Moving or speaking so slowly that other people could have noticed. Or the opposite - being so fidgety or restless that you have been moving around a lot more than usual: not at all 9. Thoughts that you would be better off or of hurting yourself in some way: not at all Total score: 2 Source: Developed by Drs. Jeff Thibodeaux, Leda Gould, Chacorta Glass and colleagues, with an educational channing from [employer]. Thrive Questionnaire Date Thrive assessed: 11/28/20 DELORES-7 AMB Questionnaire DELORES-7 Date DELORES - 7 assessed: 01/06/23 Feeling nervous, anxious, or on edge: 0 = Not at all Not being able to stop or control worryin = Not at all Worrying too much about different things: 0 = Not at all Trouble relaxin = Not at all Being so restless that it is hard to sit still: 0 = Not at all Becoming easily annoyed or irritable: 0 = Not at all Feeling afraid as if something awful might happen: 0 = Not at all Total DELORES-7 score (0-4 normal; 5-9 mild; 10-14 moderate; 15-21 severe): 0 Source: Developed by Drs. Jeff Thibodeaux, Leda Gould, Chacorta Glass and colleagues, with an educational channing from [employer]. Review of Systems Const Denies chills, Denies fatigue, Denies fever(s), Denies headache(s) and Denies weakness ENT Denies dizziness and Denies headache(s) Card Denies chest pain, Denies lightheadedness, Denies dyspnea and Denies other (Palpitations) Resp Denies cough, Denies dyspnea, Denies wheezing and Denies other ( shortness of breath) Musc Denies numbness and Denies tingling Neuro Denies dizziness, Denies headache(s), Denies numbness, Denies tingling, Denies paresthesias and Denies weakness Psych Denies anxiety and Denies depression Endo Denies fatigue Aller/Immun Denies wheezing Physical exam (Primary Care) Vital Signs: Last Vital Signs Pulse 83 01/06/23 11:47 BP 132/72 01/06/23 11:47 Pulse Ox 95 01/06/23 11:47 Oxygen Delivery Method Room Air 01/06/23 11:47 BMI result Body Mass Index 29.4 Tobacco/Smoking Status: Tobacco use Status Tobacco use date assessed 05/31/22 01/06/23 11:52 Patient Tobacco Use Status Current everyday Tobacco ( 01/06/23 11:52 states he has been weaning off slowly. ) Tobacco use type Cigarette 01/06/23 11:52 e-Cigarette/Vaping Use Never Used 01/06/23 11:52 PHQ-9: PHQ-9 Score PHQ-9: Total score 2 01/06/23 12:01 Thrive Assessment: Date of Thrive Assessment Date Thrive assessed 11/28/20 01/06/23 11:52 Const General: no acute distress and well developed Nutritional Appearance: well nourished Orientation/consciousness: patient oriented x3 HENMT Head: Yes normocephalic and Yes atraumatic Eyes General: appearance normal, both eyes and all related structures Pupils: Equal, round and reactive pupils present EOM: EOMs intact bilaterally Resp Effort & Inspection: normal respiratory effort Auscultation: clear to auscultation bilaterally Cardio Rate: regular rate Rhythm: regular rhythm Heart sounds: S1 normal heart sound present, S2 normal heart sound present, no gallops, no murmurs and no rubs Neuro General: patient oriented x3 and gait normal Cranial nerves: Yes Equal, round and reactive pupils present Extrem Other: No?edema Psych Affect: normal affect Assessment and Plan Assessment & Plan (1) Diabetes type 2, uncontrolled: Code(s): E11.65 - Type 2 diabetes mellitus with hyperglycemia Qualifiers: Glycemic state: with hypoglycemia Coma presence: without coma Qualified Code(s): E11.649 - Type 2 diabetes mellitus with hypoglycemia without coma Plan: A1c?has?climbed?again?to?9.6%. Continue?Trulicity Add?back?metformin?which?had?been?discontinued?in?the?past; he?notes?he?has?had?some?GI?discomfort?with?high?doses. Will?use?500?mg?b.i.d.?and?he?can?start?this?at?02:50?b.i.d.?until?tolerating?it. Work?at?diabetic?diet Recently?had?diabetic?eye?exam?and?exam?showed?no?diabetic?retinopathy.??Up-to-date. (2) Essential hypertension: Code(s): I10 - Essential (primary) hypertension Plan: Blood?pressure?is?controlled.??Goal?is?less?than?140/90 Continue?current?medication?regimen (3) PVD (peripheral vascular disease): Code(s): I73.9 - Peripheral vascular disease, unspecified Plan: No?lower?extremity?edema Patient?is?walking?for?exercise?and?encouraged?him?to?continue?this. Orders: Orders AMB Hemoglobin A1c Today Z13.9 - Encounter for screening, unspecified Medications: New metformin 500 mg PO BID 30 days 60 tabs 2RF Coding Level of Care Code Est Pt Level 4 (65100) Diagnoses Uncontrolled type 2 diabetes mellitus with hypoglycemia without coma E11.649 Glycemic state: with hypoglycemia Coma presence: without coma Essential hypertension I10 PVD (peripheral vascular disease) I73.9
== END 2023-01-06 12:31 | disposition home or self-care (01) ==
PROVIDERS: PCP Family Medicine; Visit Provider Family Medicine
DX: E11.649 Type 2 diabetes mellitus with hypoglycemia without coma (principal); I10 Essential (primary) hypertension; I73.9 Peripheral vascular disease, unspecified
CPT/HCPCS: 83036; 99214

== ENCOUNTER 2023-02-07 09:22 | Outpatient (AMB) | payer MEDICARE, SELFPAY ==
--- NOTE | 2023-02-07 09:38 | A.OFFPC_ITS ---
Vital Signs 02/07/23 09:39 Height 5 ft 11 in Weight 210 lb BMI 29.3 BP 128/78 Blood Pressure Location Lt brachial Position Sitting Pulse 85 Pulse Source Pulse Oximeter Pulse Oximetry (%) 94 Oxygen Delivery Method Room Air Intake Visit Reasons: f/u diabetes Intake Note: Patient is here for diabetes. Allergies niacin [NIACIN] Adverse Reaction (Mild, Verified 02/07/23 09:40) RED FLUSH, SHAKING Tobacco use date assessed: 02/07/23 Fall risk assessment: No Falls in past year Last assessed Fall Risk: 02/07/23 Dental Screening Dental Screen Date: 02/07/23 Did you have a dental visit in the last 12 months?: No Did you have a dental problem in the last 6 months where you did not have access to dental care?: No Was dental information given to patient?: Yes HPI f/u diabetes HPI Details 67 y/o male presents to f/u diabetes and hypertension. A1c had climbed to 9.6%. Had continued his Trulicity and added back metformin. A1c today 02/07/23 is 8.9%. He notes metformin has been causing him discomfort. He notes diet could be better but tries to exercise every other day. He reports morning blood sugars have been in the 120s. He notes he has trialed glipizide before. He does not recall if it has given him problems before. [facility] Medical History Bleeding hemorrhoids Transaminitis Hemorrhoids without complication History of alcohol abuse Diabetes type 2, uncontrolled PVD (peripheral vascular disease) Diabetic polyneuropathy associated with type 2 diabetes mellitus Diabetes type 2, controlled Alcohol abuse Hypertension Neuropathy Diabetes Depression Anxiety Surgical History H/O colonoscopy Family History Mother No problems noted. Father No problems noted. Social History Household Members: Family Housing: House Do you presently have visiting nurse or other home services: No Alcohol intake: former Patient Tobacco Use Status: Current everyday Tobacco user (states he has been weaning off slowly. ) Tobacco use type: Cigarette Cigarettes Per Day: 4 Years Smoked: 50 e-Cigarette/Vaping Use: Never Used Second Hand Smoke Exposure: Yes service: No Current occupational status: retired Current occupational exposures/hazards: No Cognitive needs: Yes (cane) Hearing needs: No Vision needs: Yes (reading glasses) Questionnaire Thrive Questionnaire Date Thrive assessed: 11/28/20 DELORES-7 AMB Questionnaire DELORES-7 Date DELORES - 7 assessed: 01/06/23 Source: Developed by Drs. Jeff Thibodeaux, Leda Gould, Chacorta Glass and colleagues, with an educational channing from [employer]. Review of Systems Const Denies chills, Denies fatigue, Denies fever(s), Denies headache(s) and Denies weakness ENT Denies dizziness and Denies headache(s) Card Denies chest pain, Denies lightheadedness, Denies dyspnea and Denies other (Palpitations) Resp Denies cough, Denies dyspnea, Denies wheezing and Denies other ( shortness of breath) Musc Denies numbness and Denies tingling Neuro Denies dizziness, Denies headache(s), Denies numbness, Denies tingling, Denies paresthesias and Denies weakness Psych Denies anxiety and Denies depression Endo Denies fatigue Aller/Immun Denies wheezing Physical exam (Primary Care) Vital Signs: Last Vital Signs Pulse 85 02/07/23 09:39 BP 128/78 02/07/23 09:39 Pulse Ox 94 02/07/23 09:39 Oxygen Delivery Method Room Air 02/07/23 09:39 BMI result Body Mass Index 29.3 Tobacco/Smoking Status: Tobacco use Status Tobacco use date assessed 02/07/23 02/07/23 09:41 Patient Tobacco Use Status Current everyday Tobacco ( 02/07/23 09:39 states he has been weaning off slowly. ) Tobacco use type Cigarette 02/07/23 09:39 e-Cigarette/Vaping Use Never Used 02/07/23 09:39 Thrive Assessment: Date of Thrive Assessment Date Thrive assessed 11/28/20 02/07/23 09:39 Const General: no acute distress and well developed Nutritional Appearance: well nourished Orientation/consciousness: patient oriented x3 HENMT Head: Yes normocephalic and Yes atraumatic Eyes General: appearance normal, both eyes and all related structures Pupils: Equal, round and reactive pupils present EOM: EOMs intact bilaterally Resp Effort & Inspection: normal respiratory effort Auscultation: clear to auscultation bilaterally Cardio Rate: regular rate Rhythm: regular rhythm Heart sounds: S1 normal heart sound present, S2 normal heart sound present, no gallops, no murmurs and no rubs Neuro General: patient oriented x3 and gait normal Cranial nerves: Yes Equal, round and reactive pupils present Psych Affect: normal affect Results AMB Hemoglobin A1c AMB Hemoglobin A1c 8.9 % Last Edit by Susie Corley CMA on 02/07/23 09:56 Results Reviewed Results Reviewed: Laboratory Last Values Hgb A1c (Clinic) 8.9 % (4.0-6.0) H 02/07/23 09:51 Assessment and Plan Assessment & Plan (1) Diabetes type 2, uncontrolled: Code(s): E11.65 - Type 2 diabetes mellitus with hyperglycemia Qualifiers: Coma presence: without coma Glycemic state: with hypoglycemia Qualified Code(s): E11.649 - Type 2 diabetes mellitus with hypoglycemia without coma Plan: A1c?8.9%?is?still?poor?control.??Goal?is?around?7% He?is?having?difficulty?with?metformin. Decrease?metformin?from?500?mg?b.i.d.?to?250?mg?b.i.d. Increase?Trulicity?to?3.0?mg?weekly Adding?a?low?dose?of?glipizide?to?help?with?elevations?in?blood?sugar?during?usama ltimes;?he?will?check?his?blood?sugars?a?few?times?to?ensure?he?is?not?going?low ?or?let?me?know. (2) Essential hypertension: Code(s): I10 - Essential (primary) hypertension Plan: Blood?pressure?is?controlled.??Goal?is?less?than?130/80 Continue?current?medication (3) Screening for prostate cancer: Code(s): Z12.5 - Encounter for screening for malignant neoplasm of prostate Plan: PSA?was?within?normal?limits Orders: Orders AMB Hemoglobin A1c Today Z13.9 - Encounter for screening, unspecified Medications: New glipizide ER Take at breakfast 2.5 mg PO DAILY 30 tabs 2RF 30 days Changed From dulaglutide 1.5 mg (0.5 mL) subcut QWEEK 28 days 2 mL 4RF E11.9 - Type 2 diabetes mellitus without complications To dulaglutide 3 mg (0.5 mL) subcut QWEEK 2 mL 4RF 28 days E11.9 - Type 2 diabetes mellitus without complications From metformin 500 mg PO BID 30 days 60 tabs 2RF To metformin 250 mg (1/2 x 500 mg) PO BID 30 tabs 2RF 30 days Coding Level of Care Code Est Pt Level 3 (77042) Diagnoses Uncontrolled type 2 diabetes mellitus with hypoglycemia without coma E11.649 Coma presence: without coma Glycemic state: with hypoglycemia Essential hypertension I10 Screening for prostate cancer Z12.5
[2023-02-07 09:39] VITALS: BP 128/78; PULSE 85; O2SAT 94; BMI 29.3
== END 2023-02-07 10:36 | disposition home or self-care (01) ==
PROVIDERS: PCP Family Medicine; Visit Provider Family Medicine
DX: E11.649 Type 2 diabetes mellitus with hypoglycemia without coma (principal); I10 Essential (primary) hypertension; Z12.5 Encounter for screening for malignant neoplasm of prostate
CPT/HCPCS: 83036; 99213

== ENCOUNTER 2023-05-09 09:20 | Outpatient (AMB) | payer MEDICARE, SELFPAY ==
--- NOTE | 2023-05-09 09:36 | MHC.PC.OV ---
Vital Signs 05/09/23 09:37 Height 5 ft 11 in Weight 217 lb 6 oz BMI 30.3 BP 126/70 Blood Pressure Location Lt brachial Position Sitting Pulse 80 Pulse Source Pulse Oximeter Pulse Oximetry (%) 96 Oxygen Delivery Method Room Air Intake Visit Reasons: f/u diabetes Intake Note: Patient is here to follow up on his diabetes. Allergies niacin [NIACIN] Adverse Reaction (Mild, Verified 05/09/23 09:38) RED FLUSH, SHAKING Tobacco use date assessed: 05/09/23 Fall risk assessment: No Falls in past year Last assessed Fall Risk: 05/09/23 HPI f/u diabetes HPI Details 67 y/o male presents to f/u diabetes. Last A1c 02/07/23 8.9%. Had increased his Trulicity. Decreased metformin and added a small dose of glipizide. A1c today 05/09/23 is 7.0%. Blood pressure today 126/70. He is on lisinopril 40mg daily, amlodipine 5mg, hydrochlorothiazide 12.5mg daily. HPI Comments History of Present Illness Details Documentation assistance for Balbir Schmid MD, was provided by Doc Bryan, Fretted Instrument Inspector on 05/09/2023 10:01 AM EST. I, Dr. Schmid, have read, observed, and verified documentation. [facility] Medical History Bleeding hemorrhoids Transaminitis Hemorrhoids without complication History of alcohol abuse Diabetes type 2, uncontrolled PVD (peripheral vascular disease) Diabetic polyneuropathy associated with type 2 diabetes mellitus Diabetes type 2, controlled Alcohol abuse Hypertension Neuropathy Diabetes Depression Anxiety Surgical History H/O colonoscopy Family History Mother No problems noted. Father No problems noted. Social History Household Members: Family Housing: House Do you presently have visiting nurse or other home services: No Alcohol intake: former Patient Tobacco Use Status: Current everyday Tobacco user (states he has been weaning off slowly. ) Tobacco use type: Cigarette Cigarettes Per Day: 4 Years Smoked: 50 e-Cigarette/Vaping Use: Never Used Second Hand Smoke Exposure: Yes service: No Current occupational status: retired Current occupational exposures/hazards: No Cognitive needs: Yes (cane) Hearing needs: No Vision needs: Yes (reading glasses) Questionnaire PHQ-9 Over the last 2 weeks, how often have you been bothered by any of the following problems? 1. Little interest or pleasure in doing things: not at all 2. Feeling down, depressed, or hopeless: not at all 3. Trouble falling or staying asleep, or sleeping too much: not at all 4. Feeling tired or having little energy: not at all 5. Poor appetite or overeating: not at all 6. Feeling bad about yourself - or that you are a failure or have let yourself or your family down: not at all 7. Trouble concentrating on things, such as reading the newspaper or watching television: not at all 8. Moving or speaking so slowly that other people could have noticed. Or the opposite - being so fidgety or restless that you have been moving around a lot more than usual: not at all 9. Thoughts that you would be better off or of hurting yourself in some way: not at all Total score: 0 Source: Developed by Drs. Jeff Thibodeaux, Leda Gould, Chacorta Glass and colleagues, with an educational channing from [employer]. Thrive Questionnaire Date Thrive assessed: 05/09/23 I am a: Patient What is your living situation today?: I have a steady place to live Within the past 12 months, did the food you bought not last and you didn't have the money to get more?: Never true Within the past 12 months, did you worry whether your food would run out before you got money to buy more?: Never true Do you have trouble paying for medicines?: No Do you have trouble getting transportation to medical appointments?: No Do you have trouble paying your heating and electricity bill?: No Do you have trouble taking care of your child, family member or friend?: No Do you have trouble with day-to-day activities such as bathing, preparing meals, shopping, managing finances, etc.?: No Are you currently unemployed and looking for a job?: No Are you interested in more education?: Yes THRIVE Score: 0 AUDIT C Alcohol Use Questionnaire (AUDIT-C) 1. How often do you have a drink containing alcohol?: Monthly or less 2. How many drinks containing alcohol do you have on a typical day when you are drinking?: 1 or 2 3. How often do you have six or more drinks on one occasion?: Never Total Score: 1 DELORES-7 AMB Questionnaire DELORES-7 Date DELORES - 7 assessed: 05/09/23 Feeling nervous, anxious, or on edge: 0 = Not at all Not being able to stop or control worryin = Not at all Worrying too much about different things: 0 = Not at all Trouble relaxin = Not at all Being so restless that it is hard to sit still: 0 = Not at all Becoming easily annoyed or irritable: 0 = Not at all Feeling afraid as if something awful might happen: 0 = Not at all Total DELORES-7 score (0-4 normal; 5-9 mild; 10-14 moderate; 15-21 severe): 0 Source: Developed by Drs. Jeff Thibodeaux, Leda Gould, Chacorta Glass and colleagues, with an educational channing from [employer]. Review of Systems Const Denies chills, Denies fatigue, Denies fever(s), Denies headache(s) and Denies weakness ENT Denies dizziness and Denies headache(s) Card Denies chest pain, Denies lightheadedness, Denies dyspnea and Denies other (Palpitations) Resp Denies cough, Denies dyspnea, Denies wheezing and Denies other ( shortness of breath) Musc Denies numbness and Denies tingling Neuro Denies dizziness, Denies headache(s), Denies numbness, Denies tingling, Denies paresthesias and Denies weakness Psych Denies anxiety and Denies depression Endo Denies fatigue Aller/Immun Denies wheezing Physical exam (Primary Care) Vital Signs: Last Vital Signs Pulse 80 05/09/23 09:37 BP 126/70 05/09/23 09:37 Pulse Ox 96 05/09/23 09:37 Oxygen Delivery Method Room Air 05/09/23 09:37 BMI result Body Mass Index 30.3 Tobacco/Smoking Status: Tobacco use Status Tobacco use date assessed 05/09/23 05/09/23 09:43 Patient Tobacco Use Status Current everyday Tobacco ( 05/09/23 09:43 states he has been weaning off slowly. ) Tobacco use type Cigarette 05/09/23 09:43 e-Cigarette/Vaping Use Never Used 05/09/23 09:43 PHQ-9: PHQ-9 Score PHQ-9: Total score 0 05/09/23 09:46 Thrive Assessment: Date of Thrive Assessment Date Thrive assessed 05/09/23 05/09/23 09:43 Const General: no acute distress and well developed Nutritional Appearance: well nourished Orientation/consciousness: patient oriented x3 [facility] Head: Yes normocephalic and Yes atraumatic Eyes General: appearance normal, both eyes and all related structures Pupils: Equal, round and reactive pupils present EOM: EOMs intact bilaterally Resp Effort & Inspection: normal respiratory effort Auscultation: clear to auscultation bilaterally Cardio Rate: regular rate Rhythm: regular rhythm Heart sounds: S1 normal heart sound present, S2 normal heart sound present, no gallops, no murmurs and no rubs Neuro General: patient oriented x3 and gait normal Cranial nerves: Yes Equal, round and reactive pupils present Psych Affect: normal affect Results AMB Hemoglobin A1c AMB Hemoglobin A1c 7.0 % Last Edit by Susie Corley CMA on 05/09/23 09:57 Assessment and Plan Assessment & Plan (1) Diabetes type 2, controlled: Code(s): E11.9 - Type 2 diabetes mellitus without complications Plan: A1c?has?improved?from?8.9%?to?7.0%.??Essentially?at?goal?of?less?than?7.0% We?had?decreased?metformin?due?to?GI?discomfort?and?he?is?now?tolerating?this. Had?increased?Trulicity?and?added?a?small?amount?of?glipizide. Patient?has?gained?considerable?weight?since?last?visit?however. I?encouraged?diet?exercise?and?weight?loss,?I?encouraged?a?diet?low?in?sugars?and?starches No?medication?changes?today Up-to-date?with?eye?exam?in?November?2022.??No?diabetic?retinopathy Recent?podiatry?exam.??February?2022 Stable (2) Essential hypertension: Code(s): I10 - Essential (primary) hypertension Plan: Blood?pressure?is?well?controlled.??Goal?is?less?than?140/90 Continue?current?medication Orders: Orders AMB Hemoglobin A1c Today Z13.9 - Encounter for screening, unspecified Comprehensive [place]. Panel Fast Today Z00.00 - Encounter for general adult medical examination without abnormal findings Complete Blood Count Auto Diff Today Z00.00 - Encounter for general adult medical examination without abnormal findings Lipid Panel Today Z00.00 - Encounter for general adult medical examination without abnormal findings Microalbumin, Random (w Creat) Today I10 - Essential (primary) hypertension Prostate Specific Antigen Scr Today Z12.5 - Encounter for screening for malignant neoplasm of prostate UA and rflx microscopic Today Z00.00 - Encounter for general adult medical examination without abnormal findings TSH reflex Free T4 Today Z00.00 - Encounter for general adult medical examination without abnormal findings Coding Level of Care Code Est Pt Level 3 (44319) Diagnoses Diabetes type 2, controlled E11.9 Essential hypertension I10
[2023-05-09 09:37] VITALS: BP 126/70; PULSE 80; O2SAT 96; BMI 30.3
== END 2023-05-09 10:12 | disposition home or self-care (01) ==
PROVIDERS: PCP Family Medicine; Visit Provider Family Medicine
DX: E11.9 Type 2 diabetes mellitus without complications (principal); I10 Essential (primary) hypertension
CPT/HCPCS: 83036; 99213

== ENCOUNTER 2023-06-18 09:26 | Outpatient (REF) | payer MEDICARE, SELFPAY ==
[2023-06-18 10:24] LABS: INTERNATIONAL NORM RATIO 1.2 (0.9-1.1)
[2023-06-18 10:48] LABS: Alanine Aminotransferase 35 U/L (0-40); Alkaline Phosphatase 143 U/L (39-117); Aspartate Amino Transferase 67 U/L (5-37); Bilirubin Direct 1.1 mg/dL (0.0-0.5); Bilirubin Total 2.4 mg/dL (0.0-1.0); Total Protein 8.2 g/dL (6.5-8.0)
[2023-06-18 11:32] LABS: Folate 13.5 ng/mL (> or = 4.0); Vitamin B12 426 pg/mL (200-900)
[2023-06-20 13:03] LABS: Alpha Fetoprotein 5.7 ng/mL (<6.1)
[2023-06-24 13:34] LABS: Vitamin D 25-OH, D2 <4 ng/mL; Vitamin D 25-OH, D3 41 ng/mL; Vitamin D 25-OH, Total 41 ng/mL (30-100)
[2023-06-25 06:43] LABS: Smooth Muscle Antibody 34 U (<20)
[2023-06-25 14:58] LABS: Mitochondrial Antibodies NEGATIVE (NEGATIVE)
== END 2023-06-18 09:27 | disposition home or self-care (01) ==
LOC: HO.LAB 09:26
PROVIDERS: PCP Family Medicine; Visit Provider Nurse Practitioner Family
DX: R74.01 Elevation of levels of liver transaminase levels (principal); E55.9 Vitamin D deficiency, unspecified; R19.7 Diarrhea, unspecified; R79.89 Other specified abnormal findings of blood chemistry; R74.8 Abnormal levels of other serum enzymes; K70.30 Alcoholic cirrhosis of liver without ascites; F10.11 Alcohol abuse, in remission; K64.9 Unspecified hemorrhoids; K59.01 Slow transit constipation; K21.9 Gastro-esophageal reflux disease without esophagitis
CPT/HCPCS: 36415; 80076; 82105; 82306; 82607; 82746; 85610; 86015; 86381; 99212

== ENCOUNTER 2023-06-18 09:26 | Outpatient (AMB) | payer MEDICARE, SELFPAY ==
[2023-06-18 09:29] VITALS: BP 142/75; PULSE 97; BMI 30.2
--- NOTE | 2023-06-18 09:29 | A.OFFVIS_ITS ---
Intake Vital Signs 06/18/23 09:29 Height 5 ft 11 in Weight 216 lb 7.903 oz BMI 30.2 BP 142/75 H Blood Pressure Location Lt brachial Position Sitting Pulse 97 Pulse Source Pulse Oximeter Intake Visit Reasons: 6 mnth follow up Intake Note: Pt presents to the office today for a 6 month follow up for for cirrhosis. Pt states he is feeling okay. He states he doesn't have any concerns at this time. Allergies niacin [NIACIN] Adverse Reaction (Mild, Verified 06/18/23 09:30) RED FLUSH, SHAKING HPI 6 mnth follow up HPI Details LAST VISIT Cirrhosis Continue high-protein low-fat diet. List of food recommended given to patient. Patient was encouraged to lose weight History of alcohol abuse Continue abstinence from alcohol. Patient reports that he has been doing well even though it is hard Hemorrhoid Hemorrhoidectomy in May of last year. Patient reports occasional blood on the tissue when wiping after bowel movement. Will send script for Colace and pr oximal so. I will see patient in 6 months, sooner on as needed basis. Patient is agreeable to this plan and verbalizes understanding of instructions. He was given the opportunity to ask questions and all questions answered. ? Thank you for allowing me to participate in his care Plan Medications New hydrocortisone 2.5% (Proctosol HC) 1 appl WA BID-QID PRN 30 grams 2RF hemor rhoids K64.9 docusate sodium 100 mg PO BEDTIME 90 caps 3RF K59.00 TODAY'S VISIT Patient is here today for follow-up. Patient reports that he feels well for the most part. Reports occasional constipation. No longer taking stool softener or fiber supplements. Patient also reports to be feeling gassy and bloated postprandially. Patient states that he is not on any particular diet. Continues to be sober. His A1c improved, was 7% back in May. Patient is taking Trulicity and denies any epigastric pain nausea or vomiting. Patient denies any melena, hematochezia, unintentional weight loss or ribbon like stools. Patient denies any dyspepsia, dysphagia or odynophagia. Continues to take Nexium daily. [facility] Medical History Bleeding hemorrhoids Transaminitis Hemorrhoids without complication History of alcohol abuse Diabetes type 2, uncontrolled PVD (peripheral vascular disease) Diabetic polyneuropathy associated with type 2 diabetes mellitus Diabetes type 2, controlled Alcohol abuse Hypertension Neuropathy Diabetes Depression Anxiety Surgical History H/O colonoscopy Family History Mother No problems noted. Father No problems noted. Social History Household Members: Family Housing: House Do you presently have visiting nurse or other home services: No Alcohol intake: former Patient Tobacco Use Status: Current everyday Tobacco user Tobacco use type: Cigarette Cigarettes Per Day: 4 Years Smoked: 50 e-Cigarette/Vaping Use: Never Used Second Hand Smoke Exposure: Yes service: No Current occupational status: retired Current occupational exposures/hazards: No Cognitive needs: Yes (cane) Hearing needs: No Vision needs: Yes (reading glasses) Review of Systems Const Denies weight gain and Denies weight loss ENT Reports no additional complaints, Denies dysphagia and Denies odynophagia Card Reports no additional complaints Resp Reports no additional complaints GI Denies abdominal pain, Denies belching, Denies melena, Reports bloating, Denies change in bowel habits, Reports constipation, Denies dysphagia, Denies excessive flatus, Denies dyspepsia, Denies heartburn, Denies diarrhea, Denies loose stools, Denies nausea, Denies odynophagia and Denies vomiting Reports no additional complaints Musc Reports no additional complaints Neuro Reports no additional complaints Psych Reports no additional complaints Endo Reports no additional complaints Physical Exam Vital Signs: Last Vital Signs Pulse 97 06/18/23 09:29 BP 142/75 H 06/18/23 09:29 BMI result Body Mass Index 30.2 Const General: no acute distress Nutritional Appearance: obese Orientation/consciousness: patient oriented x3 Resp Effort & Inspection: normal respiratory effort, able to speak in complete sentences, no tracheal deviation and symmetric chest movement Auscultation: clear to auscultation bilaterally Cardio Rate: regular rate GI Inspection: Yes normal to inspection, No distended and Yes obesity Palpation (GI): Soft to palpation, not firm, nontender and No hepatosplenomegaly present Auscultation: Hyperactive bowel sounds present General: Yes no CVA tenderness Back/Spine/Pelvis Back: no CVA tenderness Skin General skin exam: elasticity normal, turgor normal and dry skin Neuro General: patient oriented x3 Psych Appearance: grossly normal Mental Status: mental status grossly normal Assessment & Plan Assessment & Plan (1) Cirrhosis: Code(s): K74.60 - Unspecified cirrhosis of liver Qualifiers: Hepatic cirrhosis type: alcoholic cirrhosis Ascites presence: without ascites Qualified Code(s): K70.30 - Alcoholic cirrhosis of liver without ascites (2) History of alcohol abuse: Code(s): F10.11 - Alcohol abuse, in remission (3) Hemorrhoid: Code(s): K64.9 - Unspecified hemorrhoids Qualifiers: Hemorrhoid type: unspecified Qualified Code(s): K64.9 - Unspecified hemorrhoids (4) Constipation: Code(s): K59.00 - Constipation, unspecified Qualifiers: Constipation type: slow transit constipation Qualified Code(s): K59.01 - Slow transit constipation (5) GERD (gastroesophageal reflux disease): Code(s): K21.9 - Gastro-esophageal reflux disease without esophagitis Qualifiers: Esophagitis presence: esophagitis presence not specified Qualified Code(s): K21.9 - Gastro-esophageal reflux disease without esophagitis Plan Will repeat liver panel, alpha fetoprotein, smooth muscle antibody mitochondrial antibody PT and INR. Patient will start taking Senokot daily. Patient was also encouraged to increase fluid intake and activity to promote better bowel motility. High-fiber diet discussed with patient. Low FODMAP diet recommended. List of food recommended as well as list of food to avoid given to patient. Return in 6 months, sooner on as needed basis. Patient is agreeable to this plan and verbalizes understanding of instructions. He was given the opportunity to ask questions and all questions answered. Thank you for allowing me to participate in his care Orders: Orders Liver Panel Today R74.01 - Elevation of levels of liver transaminase levels Vitamin D 25-OH (D2 and D3) Today E55.9 - Vitamin D deficiency, unspecified Vitamin B12 and Folate Today R19.7 - Diarrhea, unspecified Alpha Fetoprotein Today R79.89 - Other specified abnormal findings of blood chemistry Smooth Muscle Antibody Today R79.89 - Other specified abnormal findings of blood chemistry US abdomen comp w elastography Today R79.89 - Other specified abnormal findings of blood chemistry Mitochondrial Antibody Today R79.89 - Other specified abnormal findings of blood chemistry Prothrombin Time INR Today R74.8 - Abnormal levels of other serum enzymes Medications: New sennosides (Natural Senna Laxative) 17.2 mg (2 x 8.6 mg) PO BEDTIME 60 tabs 3RF constipation K59.00 - Constipation, unspecified Coding Level of Care Code Est Pt Level 3 (58455) Diagnoses Alcoholic cirrhosis of liver without ascites K70.30 Hepatic cirrhosis type: alcoholic cirrhosis Ascites presence: without ascites History of alcohol abuse F10.11 Hemorrhoids, unspecified hemorrhoid type K64.9 Hemorrhoid type: unspecified Slow transit constipation K59.01 Constipation type: slow transit constipation Gastroesophageal reflux disease, unspecified whether esophagitis present K21.9 Esophagitis presence: esophagitis presence not specified Time Spent (min) 30 Comment 20 minutes spent with patient and additional 10 minutes spent reviewing his records
== END 2023-06-18 09:50 | disposition home or self-care (01) ==
PROVIDERS: PCP Family Medicine; Visit Provider Nurse Practitioner Family
DX: K70.30 Alcoholic cirrhosis of liver without ascites (principal); F10.11 Alcohol abuse, in remission; K64.9 Unspecified hemorrhoids; K59.01 Slow transit constipation; K21.9 Gastro-esophageal reflux disease without esophagitis
CPT/HCPCS: 99213

== ENCOUNTER 2023-07-07 08:37 | Outpatient (REF) | payer MEDICARE, SELFPAY ==
--- NOTE | ~2023-07-07 | US_ITS ---
EXAMINATION: US COMPLETE ABDOMEN WITH LIVER ELASTOGRAPHY CLINICAL INFORMATION: Abnormal serum AST and BUN levels. COMPARISON: Abdominal ultrasound dated 06/28/2022. TECHNIQUE: Real-time imaging of the abdominal viscera. Noninvasive ultrasound liver fibrosis assessment is performed using Oliver ElastPQ point quantification shear wave elastography (2D-SWE) with a C5-2 MHz transducer. Multiple elastography samples are obtained. FINDINGS: PANCREAS: Normal. The visualized pancreatic head and body are normal in appearance. The remainder of the pancreas is obscured from visualization by the overlying bowel gas. ABDOMINAL AORTA: The proximal, middle, and distal aortic segments are normal in caliber. INFERIOR VENA CAVA: Visualized portions are normal. LIVER: The liver demonstrates normal contour and heterogeneous echogenicity. No focal lesion or intrahepatic biliary duct dilatation. The right lobe measures 23.0 cm in length. The left lobe measures 16.8 cm in length. Portal flow is towards the liver (hepatopetal). Shear wave liver elastography median stiffness is 2.10 m/s (reference: normal median stiffness is 1.3 m/s or less). IQR/median stiffness to assess sampling precision is 0.13 (reference: good quality data set is IQR/median stiffness of 0.15 or less). GALLBLADDER: Normal. The gallbladder is physiologically distended without evidence of stones, polyps, wall thickening or pericholecystic fluid. There is mild biliary sludge. COMMON BILE DUCT: Normal in caliber measuring 0.9 cm in diameter. RIGHT KIDNEY: Normal. No hydronephrosis. No renal calculi or focal parenchymal lesions. The kidney measures 12.6 cm in maximum dimension. LEFT KIDNEY: At the upper pole, a 1.7 cm benign, simple cyst is seen, for which no imaging follow-up is recommended. No hydronephrosis. No renal calculi or focal parenchymal lesions. The kidney measures 13.0 cm in maximum dimension. SPLEEN: Normal. The spleen measures 11.4 cm in maximum dimension. FREE FLUID: None. US/US abdomen comp w elastography IMPRESSION: 1. There is generalized increase in hepatic echotexture, consistent with fatty infiltration or hepatocellular disease. Please correlate clinically. No focal hepatic mass or intrahepatic biliary dilatation is seen. 2. There is hepatomegaly. 3. Liver elastography: Measurements are suggestive of compensated advanced chronic liver disease but need further test for confirmation. 4. There is mild dilatation of the common bile duct, without choledocholithiasis or pancreatic head mass noted. No intrahepatic biliary ductal dilatation is seen. If clinically indicated, this could be further evaluated with abdominal CT or MRI/MRCP. REFERENCE: Society of Radiologists in Ultrasound Liver Stiffness Thresholds (2020): LIVER STIFFNESS THRESHOLDS: *Liver Stiffness equal or less than 1.3 m/s: High probability of being normal. *Liver Stiffness less than 1.7 m/s: In the absence of other known clinical signs, rules out compensated advanced chronic liver disease. *Liver Stiffness 1.7-2.1 m/s: Suggestive of compensated advanced chronic liver disease but need further test for confirmation. *Liver Stiffness over 2.1 m/s: Rules in compensated advanced chronic liver disease. *Liver Stiffness over 2.4 m/s: Suggestive of clinically significant portal hypertension. QUALITY OF DATA SET: *IQR/Median value equal or less than 0.15 implies a quality data set. *IQR/Median value over 0.15 implies a poor quality data set. SIGNIFICANT CHANGE FROM PRIOR EXAM: Significant change if liver stiffness measurement is 10% or greater from prior exam. OTHER CONSIDERATIONS: The stage of liver fibrosis may be overestimated in the setting of acute hepatitis, liver inflammation, elevated liver function tests, hepatic vascular congestion, obstructive cholestasis, non-fasting state, and infiltrative diseases such as amyloidosis and lymphoma. In some patients with NAFLD, the liver stiffness thresholds for compensated advanced chronic liver disease may be lower. In causes other than viral hepatitis and NAFLD, liver stiffness thresholds are not well established.
== END 2023-07-07 08:38 | disposition home or self-care (01) ==
LOC: HO.US 08:37
PROVIDERS: PCP Family Medicine; Visit Provider Nurse Practitioner Family
DX: R79.89 Other specified abnormal findings of blood chemistry (principal)
CPT/HCPCS: 76700; 76981

== ENCOUNTER 2023-12-05 09:20 | Outpatient (REF) | payer MEDICARE, SELFPAY ==
[2023-12-05 11:14] LABS: MANUAL DIFF FLAG NO
[2023-12-05 11:18] LABS: Appearance Urine Cloudy; Color Urine Dark Yellow; Glucose Urine UA Negative (Negative); Leukocyte Esterase Urine Moderate (2+) (Negative); Nitrite Urine Positive (Negative); UMIC TRIGGER UA YES; Urine Blood Negative (Negative); Urine Ketones Trace mg/dL (Negative); Urine Protein Trace mg/dL (Neg-Trace)
[2023-12-05 11:33] LABS: Basophils Absolute Auto 0.1 X10*3/uL (0.0-0.2); Basophils Percent Auto 1.3 % (0-2); Eosinophils Absolute Auto 0.1 X10*3/uL (0.0-0.4); Eosinophils Percent Auto 1.5 % (0-4); Hematocrit 50.1 % (42.0-52.0); Hemoglobin 16.9 g/dl (14.0-18.0); Imm Gran Abs Auto 0.04 X10*3/uL (0.00-0.03); Imm Gran Pct Auto 0.5 % (0.0-0.4); Lymphocytes Absolute Auto 2.2 X10*3/uL (1.2-4.9); Lymphocytes Percent Auto 24.7 % (20-40); Mean Corpuscular HGB Conc 33.7 g/dl (31.0-36.0); Mean Corpuscular Hemoglobin 32.8 pg (27.0-33.0); Mean Corpuscular Volume 97.1 fL (80.0-98.0); Monocytes Absolute Auto 0.7 X10*3/uL (0.1-1.2); Monocytes Percent Auto 7.4 % (2-11); Neutrophils Absolute Auto 5.7 x10*3/uL (2.0-8.3); Neutrophils Percent Auto 64.6 % (45-73); Platelet Count 149 X10*3/uL (160-400); Red Blood Count 5.16 X10*6/uL (4.60-5.80); Red Cell Distribution Width 17.2 % (11.0-16.0); White Blood Count 8.8 X10*3/uL (4.8-10.8)
[2023-12-05 11:34] LABS: Bacteria Urine 1+ (None Seen); Hyaline Casts Urine 0-2 /LPF (0-2); RBC Urine 0-2 /HPF (0-2); Squamous Epithelial Cell Urine 0-2 /HPF (0-2)
[2023-12-05 12:12] LABS: Alanine Aminotransferase 24 U/L (0-40); Albumin Level 3.7 g/dL (3.5-5.0); Alkaline Phosphatase 163 U/L (39-117); Anion Gap 14 (12-20); Aspartate Amino Transferase 51 U/L (5-37); Bilirubin Total 2.6 mg/dL (0.0-1.0); Blood Urea Nitrogen 5 mg/dL (9-16); Calcium 9.5 mg/dL (8.4-10.2); Carbon Dioxide 28 mmol/L (22-29); Chloride 100 mmol/L (96-108); Cholesterol 201 mg/dL (<200); Estimated Glomerular Filt Rate > 60; Glucose Fasting 189 mg/dL (60-99); HDL Cholesterol 51 mg/dL (>40); LDL Cholesterol Calculated 117 mg/dL (<100); Sodium 138 mmol/L (135-145); Total Protein 7.9 g/dL (6.5-8.0); Triglycerides 166 mg/dL (<150)
[2023-12-05 12:13] LABS: Prostate Specific Antigen Scr 4.22 ng/mL (<0.05-4.0)
[2023-12-05 12:17] LABS: Microalbum/Creatinine Ratio Ur 11.7 ug/mg cr (<30)
[2023-12-11 11:00] LABS: Phosphatidylethanol 16:0-18:1 >400 (H); Phosphatidylethanol 16:0-18:2 >400 (H)
== END 2023-12-05 09:21 | disposition home or self-care (01) ==
LOC: HO.WFDLDS 09:20
PROVIDERS: Referring Provider Nurse Practitioner Family; Visit Provider Family Medicine
DX: Z00.00 Encounter for general adult medical examination without abnormal findings (principal); I10 Essential (primary) hypertension; Z12.5 Encounter for screening for malignant neoplasm of prostate; R74.01 Elevation of levels of liver transaminase levels; F10.11 Alcohol abuse, in remission
CPT/HCPCS: 36415; 80053; 80061; 80321; 81001; 82043; 82570; 84153; 84443; 85025

== ENCOUNTER 2023-12-17 09:41 | Outpatient (REF) | payer MEDICARE, SELFPAY ==
[2023-12-17 11:51] LABS: Alanine Aminotransferase 22 U/L (0-40); Albumin Level 3.8 g/dL (3.5-5.0); Alkaline Phosphatase 183 U/L (39-117); Aspartate Amino Transferase 49 U/L (5-37); Bilirubin Direct 1.1 mg/dL (0.0-0.5); Bilirubin Total 2.3 mg/dL (0.0-1.0)
[2023-12-25 05:45] LABS: FIB-ALT 19 U/L (9-46); FIB-Alpha-2-Macroglobulin 224 mg/dL (106-279); FIB-Apolipoprotein A1 162 mg/dL (94-176); FIB-GGT 711 U/L (3-70); FIB-Haptoglobin 134 mg/dL (43-212); FIB-Total Bilirubin 2.2 mg/dL (0.2-1.2); Liver Fibrosis Score 0.85; Liver Fibrosis Stage F4; Nec Inflam Act Grade A0; Nec Inflam Act Score 0.15
== END 2023-12-17 09:42 | disposition home or self-care (01) ==
LOC: HO.LAB 09:41
PROVIDERS: PCP Family Medicine; Visit Provider Nurse Practitioner Family
DX: R74.01 Elevation of levels of liver transaminase levels (principal); K76.0 Fatty (change of) liver, not elsewhere classified; K70.30 Alcoholic cirrhosis of liver without ascites; F10.11 Alcohol abuse, in remission; R74.8 Abnormal levels of other serum enzymes; K59.01 Slow transit constipation; K21.9 Gastro-esophageal reflux disease without esophagitis
CPT/HCPCS: 36415; 80076; 81596; 99212

== ENCOUNTER 2023-12-17 09:41 | Outpatient (AMB) | payer MEDICARE, SELFPAY ==
[2023-12-17 09:54] VITALS: BP 130/70; PULSE 76; O2SAT 93; BMI 29.8
--- NOTE | 2023-12-17 09:54 | MHC.OFFVIS ---
Vital Signs 12/17/23 09:54 Height 5 ft 11 in Weight 213 lb 13.574 oz BMI 29.8 BP 130/70 Blood Pressure Location Rt brachial Position Sitting Pulse 76 Pulse Source Pulse Oximeter Pulse Oximetry (%) 93 Oxygen Delivery Method Room Air Intake Visit Reasons: 6 month follow up Intake Note: Laron presents in office today for a scheduled 6 mos FUV. CC: Pt had some recent bloodwork done. Pt was also rx'd senna at their last visit. Pt reports that they have remained stable since their last visit. Pt only concerns pertain to recent a1c value and their difficulty with losing weight despite current/recent efforts. Pt has been taking senna as instructed with no complications to this point. Crop Quantitative Geneticist Required: No Allergies niacin [NIACIN] Adverse Reaction (Mild, Verified 12/17/23 09:55) RED FLUSH, SHAKING HPI HPI 6 month follow up: Details: LAST VISIT: Cirrhosis History of alcohol abuse Hemorrhoid Constipation GERD (gastroesophageal reflux disease) Plan Will repeat liver panel, alpha fetoprotein, smooth muscle antibody mitochondrial antibody PT and INR. Patient will start taking Senokot daily. Patient was also encouraged to increase fluid intake and activity to promote better bowel motility. High-fiber diet discussed with patient. Low FODMAP diet recommended. List of food recommended as well as list of food to avoid given to patient. Return in 6 months, sooner on as needed basis. Patient is agreeable to this plan and verbalizes understanding of instructions. He was given the opportunity to ask questions and all questions answered. ? Thank you for allowing me to participate in his care Orders Orders Liver Panel Today R74.01 Vitamin D 25-OH (D2 and D3) Today E55.9 Vitamin B12 and Folate Today R19.7 Alpha Fetoprotein Today R79.89 Smooth Muscle Antibody Today R79.89 US abdomen comp w elastography Today R79.89 Mitochondrial Antibody Today R79.89 Prothrombin Time INR Today R74.8 Medications New sennosides (Natural Senna Laxative) 17.2 mg (2 x 8.6 mg) PO BEDTIME 60 tabs 3RF constipation K59.00 TODAY'S VISIT Patient is here today for follow-up and to discuss lab results. Patient reports that he is doing okay and not drinking any alcohol. Patient would like to lose weight and lower his A1c level. Patient denies any melena, hematochezia, unintentional weight loss or ribbon like stools. Patient denies any dyspepsia, dysphagia or odynophagia. Reports that he is moving his bowels better now. Currently patient is taking Nexium daily and reports that his symptoms of acid reflux are suppressed. Patient denies any other GI symptoms. [facility] Medical History Bleeding hemorrhoids Transaminitis Hemorrhoids without complication History of alcohol abuse Diabetes type 2, uncontrolled PVD (peripheral vascular disease) Diabetic polyneuropathy associated with type 2 diabetes mellitus Diabetes type 2, controlled Alcohol abuse Hypertension Neuropathy Diabetes Depression Anxiety Surgical History H/O colonoscopy Family History Mother No problems noted. Father No problems noted. Social History Household Members: Family Housing: House Do you presently have visiting nurse or other home services: No Alcohol intake: former Patient Tobacco Use Status: Current everyday Tobacco user Tobacco use type: Cigarette Cigarettes Per Day: 4 Years Smoked: 50 e-Cigarette/Vaping Use: Never Used Second Hand Smoke Exposure: Yes service: No Current occupational status: retired Current occupational exposures/hazards: No Cognitive needs: Yes (cane) Hearing needs: No Vision needs: Yes (reading glasses) Review of Systems Const Denies weight gain and Denies weight loss ENT Reports no additional complaints, Denies dysphagia and Denies odynophagia Card Reports no additional complaints Resp Reports no additional complaints GI Denies abdominal pain, Denies belching, Denies melena, Reports bloating, Denies change in bowel habits, Denies dysphagia, Denies excessive flatus, Denies dyspepsia, Denies heartburn, Denies diarrhea, Reports loose stools (Occasional), Denies nausea, Denies odynophagia and Denies vomiting Reports no additional complaints Musc Reports no additional complaints Neuro Reports no additional complaints Psych Reports no additional complaints Endo Reports no additional complaints Physical Exam Vital Signs: Last Vital Signs Pulse 76 12/17/23 09:54 BP 130/70 12/17/23 09:54 Pulse Ox 93 12/17/23 09:54 Oxygen Delivery Method Room Air 12/17/23 09:54 BMI result Body Mass Index 29.8 Const General: no acute distress Nutritional Appearance: obese Orientation/consciousness: patient oriented x3 Resp Effort & Inspection: normal respiratory effort, able to speak in complete sentences, no tracheal deviation and symmetric chest movement Auscultation: clear to auscultation bilaterally Cardio Rate: regular rate GI Inspection: Yes normal to inspection, No distended and Yes obesity Palpation (GI): Soft to palpation, not firm, nontender and No hepatosplenomegaly present Auscultation: Hyperactive bowel sounds present General: Yes no CVA tenderness Back/Spine/Pelvis Back: no CVA tenderness Skin General skin exam: elasticity normal, turgor normal and dry skin Neuro General: patient oriented x3 Psych Appearance: grossly normal Mental Status: mental status grossly normal Results Reviewed Results Reviewed: Laboratory Tests 09/10/22 06/18/23 12/05/23 11:40 10:06 09:22 Plt Count 149 L Total Bilirubin 2.6 H AST 34 67 H 51 H ALT 37 35 24 Alkaline Phosphatase 163 H Triglycerides 166 H Cholesterol 201 H LDL Cholesterol, Calc 117 H Laboratory Tests 06/18/23 10:06 Alpha Fetoprotein 5.7 Anti-Mitochondrial Ab NEGATIVE Anti-Smooth Muscle Ab 34 H Assessment & Plan Assessment & Plan (1) Cirrhosis: Code(s): K74.60 - Unspecified cirrhosis of liver Category: Medical Qualifiers: Hepatic cirrhosis type: alcoholic cirrhosis Ascites presence: without ascites Qualified Code(s): K70.30 - Alcoholic cirrhosis of liver without ascites (2) History of alcohol abuse: Code(s): F10.11 - Alcohol abuse, in remission Category: Medical (3) Elevated liver enzymes: Code(s): R74.8 - Abnormal levels of other serum enzymes Category: Medical (4) Constipation: Code(s): K59.00 - Constipation, unspecified Qualifiers: Constipation type: slow transit constipation Qualified Code(s): K59.01 - Slow transit constipation (5) GERD (gastroesophageal reflux disease): Code(s): K21.9 - Gastro-esophageal reflux disease without esophagitis Qualifiers: Esophagitis presence: esophagitis presence not specified Qualified Code(s): K21.9 - Gastro-esophageal reflux disease without esophagitis Plan Continue Nexium. Avoid dietary triggers and late night snacking. Avoid drinking alcohol. Low-fat, low-salt and low carb diet recommended. Increase exercise. Increase fluid intake and activity to promote better bowel motility. High-fiber diet and additional fiber if needed. Will recheck liver panel and liver fibrosis. Follow-up in 3-4 months, sooner on as needed basis. He is agreeable to this plan and verbalizes understanding of instructions. He was given the opportunity to ask questions and all questions answered. Thank you for allowing me to participate in his care Orders: Orders Liver Panel Today R74.01 - Elevation of levels of liver transaminase levels Liver Fibrosis Pnl Today K76.0 - Fatty (change of) liver, not elsewhere classified Medications: New methylcellulose (laxative) (Citrucel) take it with full glass of water 500 mg PO DAILY 30 tabs 2RF K59.00 - Constipation, unspecified Discontinued sennosides (Natural Senna Laxative) Discontinued Reason: Doctor's Order 17.2 mg (2 x 8.6 mg) PO BEDTIME 60 tabs 3RF constipation K59.00 - Constipation, unspecified Coding Level of Care Code Est Pt Level 4 (40891) Diagnoses Alcoholic cirrhosis of liver without ascites K70.30 Hepatic cirrhosis type: alcoholic cirrhosis Ascites presence: without ascites History of alcohol abuse F10.11 Elevated liver enzymes R74.8 Slow transit constipation K59.01 Constipation type: slow transit constipation Gastroesophageal reflux disease, unspecified whether esophagitis present K21.9 Esophagitis presence: esophagitis presence not specified Time Spent (min) 35 Comment 20 minutes spent with patient and additional 15 minutes spent reviewing his records
== END 2023-12-17 10:21 | disposition home or self-care (01) ==
PROVIDERS: PCP Family Medicine; Visit Provider Nurse Practitioner Family
DX: K70.30 Alcoholic cirrhosis of liver without ascites (principal); F10.11 Alcohol abuse, in remission; R74.8 Abnormal levels of other serum enzymes; K59.01 Slow transit constipation; K21.9 Gastro-esophageal reflux disease without esophagitis
CPT/HCPCS: 99214

== ENCOUNTER 2024-01-15 07:53 | Outpatient (AMB) | payer MEDICARE, SELFPAY ==
--- NOTE | 2024-01-15 08:03 | MHC.PC.OV ---
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 Required: No Allergies niacin [NIACIN] Adverse Reaction (Mild, Verified 01/15/24 08:06) RED FLUSH, SHAKING Medication List - Last Reconciled 01/15/24 by Leona Michelle PA-C alpha lipoic acid 600 mg (6 x 100 mg) PO DAILY amlodipine 5 mg PO DAILY 30 days atorvastatin 1 tab PO DAILY cholecalciferol (vitamin D3) 50 mcg PO DAILY docusate sodium 100 mg PO BEDTIME dulaglutide 3 mg (0.5 mL) subcut QWEEK 28 days folic acid 1 mg PO DAILY 90 days glipizide ER 2.5 mg PO DAILY 30 days lisinopril 40 mg PO DAILY 30 days magnesium oxide 800 mg (2 x 400 mg (241.3 mg magnesium)) PO DAILY pyridoxine (vitamin B6) 50 mg PO DAILY vitamin B complex (vitamins B1 B6 B12) . Tobacco use date assessed: 05/09/23 Dental Screening Dental Screen Date: 02/07/23 HPI CPE and labs HPI Details Patient is a 68-year-old male with a significant past medical history cirrhosis, type 2 diabetes, hypertension, hyperlipidemia, peripheral vascular disease, colon polyps, GERD, history of alcohol abuse, memory impairment presenting today for to review his labs. He is a patient of Dr. Schmid the normally follows with him. He states that he did complete labs a month ago in preparation for this appointment. CV: Blood pressure today in the office is 130/70. He is currently on lisinopril 40 mg, hctz 12.5 mg and amlodipine 5 mg daily. Cholesterol is controlled with atorvastatin. Endo: A1c today is 6.9. He is on glipizide 2.5 mg daily, Trulicity 3 mg weekly. He was diagnosed with diabetes 10 years ago. He states he had followed with a land development project manager. Does not want dm education. Follows with ophthalmology (last month states normal) and podiatry. Has a family history of t2 diabetes. Psych: Started drinking heavily/consistently since 27. He states he has a vodka (1 pint) every 2-3 days. Longest sobriety was 30 days. He struggles with the urge. Compliant with thiamine, B6. GI: Follows with GI for his cirrhosis q 3 months and GERD. Last colonoscopy Urology: Psa: utd, elevated. He states he does get some urinary frequency and dysuria on and off for the last few months. In Nov he did have a urine which did show some bacteria. He states that he has not had any fever, chills, flank pain or persistent dysuria. He does report there is a possible risk of std. no abnormal discharge. [facility] Medical History Bleeding hemorrhoids Transaminitis Hemorrhoids without complication History of alcohol abuse Diabetes type 2, uncontrolled PVD (peripheral vascular disease) Diabetic polyneuropathy associated with type 2 diabetes mellitus Diabetes type 2, controlled Alcohol abuse Hypertension Neuropathy Diabetes Depression Anxiety Surgical History H/O colonoscopy Family History Mother No problems noted. Father No problems noted. Social History Household Members: Family Housing: House Do you presently have visiting nurse or other home services: No Alcohol intake: former Patient Tobacco Use Status: Current everyday Tobacco user Tobacco use type: Cigarette Cigarettes Per Day: 4 Years Smoked: 50 e-Cigarette/Vaping Use: Never Used Second Hand Smoke Exposure: Yes service: No Current occupational status: retired Current occupational exposures/hazards: No Cognitive needs: Yes (cane) Hearing needs: No Vision needs: Yes (reading glasses) Questionnaire Thrive Questionnaire Date Thrive assessed: 05/09/23 DELORES-7 AMB Questionnaire DELORES-7 Date DELORES - 7 assessed: 05/09/23 Source: Developed by Drs. Jeff Thibodeaux, Leda Gould, Chacorta Glass and colleagues, with an educational channing from [employer]. Physical exam (Primary Care) Tobacco/Smoking Status: Tobacco use Status Tobacco use date assessed 05/09/23 01/15/24 08:05 Patient Tobacco Use Status Current everyday Tobacco 01/15/24 08:05 Tobacco use type Cigarette 01/15/24 08:05 e-Cigarette/Vaping Use Never Used 01/15/24 08:05 Thrive Assessment: Date of Thrive Assessment Date Thrive assessed 05/09/23 01/15/24 08:05 Results AMB Hemoglobin A1c AMB Hemoglobin A1c 6.9 % Last Edit by Ivy Lopez CMA on 01/15/24 08:21 Results Reviewed Results Reviewed: Laboratory Tests 12/05/23 09:22 WBC 8.8 RBC 5.16 Hgb 16.9 Hct 50.1 Plt Count 149 L Laboratory Tests 12/05/23 12/17/23 09:22 10:45 Sodium 138 Potassium 4.0 Chloride 100 Carbon Dioxide 28 Anion Gap 14 BUN 5 L Creatinine 0.74 Estimated GFR > 60 Fasting Glucose 189 H Calcium 9.5 Total Bilirubin 2.3 H Direct Bilirubin 1.1 H AST 49 H Liver GGT 711 H Liver Total Bilirubin 2.2 H Total Protein 7.9 Albumin 3.7 Triglycerides 166 H Cholesterol 201 H LDL Cholesterol, Calc 117 H HDL Cholesterol 51 Coding Level of Care Code Est Pt Level 4 (30164) Complex EM visit Add On G2211 Diagnoses Alcohol abuse F10.10 Elevated PSA R97.20 Dysuria R30.0 Assessment & Plan Assessment & Plan (1) Alcohol abuse: Code(s): F10.10 - Alcohol abuse, uncomplicated Category: Medical Plan: referral to addiction medicine we had a lengthy discussion today regarding this and his liver disease. he states he knows he needs to stop but struggles. (2) Elevated PSA: Code(s): R97.20 - Elevated prostate specific antigen [PSA] Category: Medical Plan: referral to urology (3) Dysuria: Code(s): R30.0 - Dysuria Category: Medical Plan: reviewed last labs with pt. will check ua and culture, gc testing ordered as well Orders: Orders UA CC w/rflx Micro + Cult Today R30.0 - Dysuria AMB Hemoglobin A1c Today E11.42 - Type 2 diabetes mellitus with diabetic polyneuropathy CT NG by PCR Today Z20.2 - Contact with and (suspected) exposure to infections with a predominantly sexual mode of transmission Referrals Urology Referral R97.20 - Elevated prostate specific antigen [PSA] Addiction Medicine Referral F10.10 - Alcohol abuse, uncomplicated, K70.30 - Alcoholic cirrhosis of liver without ascites Medications: New hydrochlorothiazide 12.5 mg PO DAILY 90 tabs 2RF
[2024-01-15 08:16] VITALS: BP 126/66; PULSE 88; O2SAT 98; BMI 29.4
== END 2024-01-15 09:02 | disposition home or self-care (01) ==
PROVIDERS: PCP Family Medicine; Visit Provider Physician Assistant
DX: F10.10 Alcohol abuse, uncomplicated (principal); R97.20 Elevated prostate specific antigen [PSA]; R30.0 Dysuria; E11.42 Type 2 diabetes mellitus with diabetic polyneuropathy

== ENCOUNTER 2024-02-04 10:32 | Outpatient (AMB) | payer MEDICARE, SELFPAY ==
--- NOTE | 2024-02-04 10:37 | A.OFFPC_ITS ---
Vital Signs 02/04/24 10:46 Height 5 ft 11 in Weight 212 lb BMI 29.6 BP 114/60 Blood Pressure Location Rt brachial Position Sitting Respiration 14 Pulse 89 Pulse Source Pulse Oximeter Temp 98.1 F Temp Source Oral Pulse Oximetry (%) 94 Oxygen Delivery Method Room Air Intake Visit Reasons: Follow Up Diabetes Intake Note: DM f/u Allergies niacin [NIACIN] Adverse Reaction (Mild, Verified 02/04/24 10:49) RED FLUSH, SHAKING Medication List - Last Reconciled 02/04/24 by Balbir Schmid MD alpha lipoic acid 600 mg (6 x 100 mg) PO DAILY amlodipine 5 mg PO DAILY 30 days atorvastatin 1 tab PO DAILY cholecalciferol (vitamin D3) 50 mcg PO DAILY docusate sodium 100 mg PO BEDTIME dulaglutide 3 mg (0.5 mL) subcut QWEEK 28 days folic acid 1 mg PO DAILY 90 days glipizide ER 2.5 mg PO DAILY 30 days hydrochlorothiazide 12.5 mg PO DAILY lisinopril 40 mg PO DAILY 30 days magnesium oxide 800 mg (2 x 400 mg (241.3 mg magnesium)) PO DAILY pyridoxine (vitamin B6) 50 mg PO DAILY vitamin B complex (vitamins B1 B6 B12) . Tobacco use date assessed: 05/09/23 Dental Screening Dental Screen Date: 02/07/23 HPI Follow Up Diabetes HPI Details 68 y/o male presents to f/u diabetes. Recent A1c in December 6.9%. He is on dulaglutide 3mg, glipizide 2.5mg. Blood pressure today 114/60, 89p. He is on lisinopril 40mg, HCTZ 12.5mg, amlodipine 5mg daily. [facility] Medical History (Updated 01/15/24 @ 08:43 by Leona Michelle PA-C) Bleeding hemorrhoids Transaminitis Hemorrhoids without complication History of alcohol abuse Diabetes type 2, uncontrolled PVD (peripheral vascular disease) Diabetic polyneuropathy associated with type 2 diabetes mellitus Diabetes type 2, controlled Alcohol abuse Hypertension Neuropathy Diabetes Depression Anxiety Surgical History H/O colonoscopy Family History Mother No problems noted. Father No problems noted. Social History Household Members: Family Housing: House Do you presently have visiting nurse or other home services: No Alcohol intake: former Patient Tobacco Use Status: Current everyday Tobacco user Tobacco use type: Cigarette Cigarettes Per Day: 4 Years Smoked: 50 e-Cigarette/Vaping Use: Never Used Second Hand Smoke Exposure: Yes service: No Current occupational status: retired Current occupational exposures/hazards: No Cognitive needs: Yes (cane) Hearing needs: No Vision needs: Yes (reading glasses) Questionnaire PHQ-9 Over the last 2 weeks, how often have you been bothered by any of the following problems? 1. Little interest or pleasure in doing things: several days 2. Feeling down, depressed, or hopeless: not at all 3. Trouble falling or staying asleep, or sleeping too much: more than half the days 4. Feeling tired or having little energy: several days 5. Poor appetite or overeating: not at all 6. Feeling bad about yourself - or that you are a failure or have let yourself or your family down: not at all 7. Trouble concentrating on things, such as reading the newspaper or watching television: not at all 8. Moving or speaking so slowly that other people could have noticed. Or the opposite - being so fidgety or restless that you have been moving around a lot more than usual: not at all 9. Thoughts that you would be better off or of hurting yourself in some way: not at all Total score: 4 Source: Developed by Drs. Jeff Thibodeaux, Leda Gould, Chacorta Glass and colleagues, with an educational channing from [employer]. Thrive Questionnaire Date Thrive assessed: 05/09/23 I am a: Patient What is your living situation today?: I have a steady place to live Within the past 12 months, did the food you bought not last and you didn't have the money to get more?: Often true Within the past 12 months, did you worry whether your food would run out before you got money to buy more?: Often true Do you have trouble paying for medicines?: Yes Do you have trouble getting transportation to medical appointments?: No Do you have trouble paying your heating and electricity bill?: Yes Do you have trouble taking care of your child, family member or friend?: No Do you have trouble with day-to-day activities such as bathing, preparing meals, shopping, managing finances, etc.?: No Are you currently unemployed and looking for a job?: No Are you interested in more education?: No Please select the resources that you would like help with: None Currently or been in a relationship where the following occur: No concerns reported THRIVE Score: 3 AUDIT C Alcohol Use Questionnaire (AUDIT-C) 1. How often do you have a drink containing alcohol?: 2-3 times a week 2. How many drinks containing alcohol do you have on a typical day when you are drinking?: 1 or 2 3. How often do you have six or more drinks on one occasion?: Less than monthly Total Score: 4 DELORES-7 AMB Questionnaire DELORES-7 Date DELORES - 7 assessed: 05/09/23 Feeling nervous, anxious, or on edge: 0 = Not at all Source: Developed by Drs. Jeff Thibodeaux, Leda Gould, Chacorta Glass and colleagues, with an educational channing from [employer]. Review of Systems Const Denies chills, Denies fatigue, Denies fever(s), Denies headache(s) and Denies weakness ENT Denies dizziness and Denies headache(s) Card Denies chest pain, Denies lightheadedness, Denies dyspnea and Denies other (Palpitations) Resp Denies cough, Denies dyspnea, Denies wheezing and Denies other ( shortness of breath) Musc Denies numbness and Denies tingling Neuro Denies dizziness, Denies headache(s), Denies numbness, Denies tingling, Denies paresthesias and Denies weakness Psych Denies anxiety and Denies depression Endo Denies fatigue Aller/Immun Denies wheezing Physical exam (Primary Care) Vital Signs: Last Vital Signs Temp 98.1 F 02/04/24 10:46 Pulse 89 02/04/24 10:46 Resp 14 02/04/24 10:46 BP 114/60 02/04/24 10:46 Pulse Ox 94 02/04/24 10:46 Oxygen Delivery Method Room Air 02/04/24 10:46 BMI result Body Mass Index 29.6 Tobacco/Smoking Status: Tobacco use Status Tobacco use date assessed 05/09/23 02/04/24 10:38 Patient Tobacco Use Status Current everyday Tobacco 02/04/24 10:38 Tobacco use type Cigarette 02/04/24 10:38 e-Cigarette/Vaping Use Never Used 02/04/24 10:38 PHQ-9: PHQ-9 Score PHQ-9: Total score 4 02/04/24 10:52 Thrive Assessment: Date of Thrive Assessment Date Thrive assessed 05/09/23 02/04/24 10:38 Currently or been in a relationship where the following occur: No concerns reported Const General: no acute distress and well developed Nutritional Appearance: well nourished Orientation/consciousness: patient oriented x3 HENMT Head: Yes normocephalic and Yes atraumatic Eyes General: appearance normal, both eyes and all related structures Pupils: Equal, round and reactive pupils present EOM: EOMs intact bilaterally Resp Effort & Inspection: normal respiratory effort Auscultation: clear to auscultation bilaterally Cardio Rate: regular rate Rhythm: regular rhythm Heart sounds: S1 normal heart sound present, S2 normal heart sound present, no gallops, no murmurs and no rubs Neuro General: patient oriented x3 and gait normal Cranial nerves: Yes Equal, round and reactive pupils present Psych Affect: normal affect Coding Level of Care Code Est Pt Level 3 (06864) Diagnoses Diabetes type 2, controlled E11.9 Essential hypertension I10 Alcohol abuse F10.10 Assessment & Plan Assessment & Plan (1) Diabetes type 2, controlled: Code(s): E11.9 - Type 2 diabetes mellitus without complications Category: Medical Plan: Recent?A1c?6.9%.??Goal?is?less?than?7% Continue?current?medication Continue?diabetic?diet (2) Essential hypertension: Code(s): I10 - Essential (primary) hypertension Category: Medical Plan: Blood?pressure?is?controlled.??Goal?is?less?than?140/90 Continue?current?regimen (3) Alcohol abuse: Code(s): F10.10 - Alcohol abuse, uncomplicated Category: Social Hx Plan: Patient?had?recent?referral?to?[facility]. Appointment?was?apparently?canceled?but?he?says?that?he?intends?to?reschedule. Encouraged?rescheduling?appointment Encouraged?abstinence?from?alcohol
[2024-02-04 10:46] VITALS: BP 114/60; PULSE 89; RESP 14; TEMP 36.7; O2SAT 94; BMI 29.6
== END 2024-02-04 11:06 | disposition home or self-care (01) ==
LOC: HO.HMCFM 10:33
PROVIDERS: PCP Family Medicine; Visit Provider Family Medicine
DX: E11.9 Type 2 diabetes mellitus without complications (principal); I10 Essential (primary) hypertension; F10.10 Alcohol abuse, uncomplicated

== ENCOUNTER → 2024-02-04 10:32 | Outpatient (BNVA) | payer MEDICARE, SELFPAY | PROVIDERS: PCP Family Medicine; Visit Provider Family Medicine | DX: E11.9 Type 2 diabetes mellitus without complications (principal); I10 Essential (primary) hypertension; F10.10 Alcohol abuse, uncomplicated | CPT/HCPCS: 96127; 99212 ==

== ENCOUNTER 2024-03-04 10:55 | Outpatient (AMB) | payer MEDICARE, SELFPAY ==
--- NOTE | 2024-03-04 11:32 | MHC.OFFVIS ---
Intake Visit Reasons: elevated PSA Intake Note: Patient is present for ELEVATED PSA Urology Medication:VITAMIN B6,VITAMIN B1 Antibiotic Allergy:NIACIN Blood Thinner:NONE Designer Required: No Allergies niacin [NIACIN] Adverse Reaction (Mild, Verified 03/04/24 11:33) RED FLUSH, SHAKING HPI Comments Details: Laron is a pleasant male. He is a patient of Dr. Schmid. He is seen for the following urologic conditions - balanitis Last seen in office 2 years ago Presents now with elevated PSA Will repeat PSA Discussed coffee, exercise, sex within 24 hours can all distort PSA value LIZZIE 1+ prostate firmness right side. Elevated PSA PSA 09/20 3.0, 12/22 4.2 Balanitis Prior episode Resolved after better diabetic control Is on Trulicity with current HbA1c 5.4 down from over 6.5 proximally 12 months ago Discussed natural history of balanitis in setting of diabetes He will call if has recurrence [facility] Medical History (Updated 01/15/24 @ 08:43 by Leona Michelle PA-C) Bleeding hemorrhoids Transaminitis Hemorrhoids without complication History of alcohol abuse Diabetes type 2, uncontrolled PVD (peripheral vascular disease) Diabetic polyneuropathy associated with type 2 diabetes mellitus Diabetes type 2, controlled Alcohol abuse Hypertension Neuropathy Diabetes Depression Anxiety Surgical History H/O colonoscopy Family History Mother No problems noted. Father No problems noted. Social History Household Members: Family Housing: House Do you presently have visiting nurse or other home services: No Alcohol intake: former Patient Tobacco Use Status: Current everyday Tobacco user Tobacco use type: Cigarette Cigarettes Per Day: 4 Years Smoked: 50 e-Cigarette/Vaping Use: Never Used Second Hand Smoke Exposure: Yes service: No Current occupational status: retired Current occupational exposures/hazards: No Cognitive needs: Yes (cane) Hearing needs: No Vision needs: Yes (reading glasses) Review of Systems Const Denies chills and Denies fever(s) Card Reports no additional complaints and Denies syncope Resp Denies cough GI Denies abdominal pain and Denies heartburn Reports as per HPI and Denies change in libido Neuro Denies syncope Psych Denies change in libido Endo Denies change in libido Physical Exam Const General: cooperative, healthy appearing, comfortable and no acute distress Orientation/consciousness: patient oriented x3 HEENT Face and sinus: Yes normal facial exam Mouth: moist mucous membranes Neck Neck: Yes normal visual inspection, Yes full ROM and Yes trachea midline Chest Chest palpation & inspection: normal inspection of the chest Resp Effort & Inspection: normal respiratory effort, able to speak in complete sentences and no respiratory distress GI Inspection: Yes normal to inspection Rectal Exam - Male: Yes normal sphincter tone and Yes prostate normal Male General Exam: Yes normal external exam Penis: normal penis and circumcised Meatus: meatus normal Scrotum: scrotum normal Testes: Testes normal Back/Spine/Pelvis Cervical Spine: normal cervical lordosis Thoracic/Lumbar Spine: thoracic and lumbar spine normal to inspection Skin General skin exam: no rashes or lesions noted Neuro General: patient oriented x3, gait normal, tone normal and moves all extremities Extrem General: Yes normal to inspection and Yes capillary refill normal Assessment & Plan Assessment & Plan (1) Elevated PSA: Code(s): R97.20 - Elevated prostate specific antigen [PSA] Category: Medical Plan Three-month follow-up PSA Orders: Orders PSA,Total (Free>4and<10) 3 Months R97.20 - Elevated prostate specific antigen [PSA] Patient Instructions: Imaging studies, laboratory and physical exam results were discussed and reviewed in detail. No major barriers to patient understanding were identified. An opportunity to ask questions regarding the treatment plan was provided. All questions were answered. The patient expressed understanding and agreement with the above treatment plan. The patient is aware they should contact our office by phone for worsening of their current condition or the appearance of new urologic symptoms. Compliance is encouraged with any medications and followup testing that is ordered. It is a privilege to participate in the urologic care of your patient. If you have any questions or concerns regarding treatment for the above conditions, or other urologic issues, please do not hesitate to contact me. The office telephone contact is [phone]. This note is constructed using voice recognition software. While every effort has been made to ensure accuracy camera storage clerk errors may have been included. Yours sincerely, Dr Harley Trujillo MD, [facility] [place] - Urology Providers of Expert, Compassionate Care for the Genitourinary System Coding Level of Care Code Est Pt Level 4 (24140) Diagnoses Elevated PSA R97.20
--- OUTSIDE RECORDS SUMMARY | 2024-03-10 01:46 | XMS_ITS ---
[facility] Organization [facility] Address [address] [place] [address] Care Team Providers Care Hose Mender Name Role Phone Balbir Schmid MD Primary Care Provider Chris Douglas Unavailable [phone] Allergies Allergen (clinical drug ingredient) Drug/Non Drug Allergy documented on EMR Reaction Allergy Type Onset Date Status niacin Niacin Unknown Drug Allergy Active REASON FOR VISIT At Risk Footcare, Toe Irritation Medications Medication SIG (Take, Route, Frequency, Duration) Notes Start Date End Date Status Gabapentin Not-Takin g Ciclopirox Olamine 0.77 % 1 application to affected area Externally to feet Twice a day for 30 days Not-Taking Extra Depth Orthopedic Shoes (1 Pair) with Customized Heat Molded Multidensity Innersoles (3 Pair) as directed Dx: NIDDM/Polyneuropathy (E11.42), Hammertoe Foot Deformity (M20.41,M20.42), Preulcerative Skin Lesion(s) (L85.1 Active Vitamin B1 Active Trulicity Active Phospha 250 Neutral Active Magnesium Oxide Acti ve Lansoprazole Active Folic Acid Active Escitalopram Oxalate Active Atorvastatin Calcium Active Synjardy Not-Taking Social History Tobacco Use: Social History Observation Description Date Details (start date - stop date) Former Smoker NA - NA Tobacco Use/Smoking Question Answer Notes Are you a: former smoker Additional Findings: Tobacco Non-User Current no n-smoker Alcohol Screen Question Answer Notes Did you have a drink containing alcohol in the p ast year? Yes Points 0 Interpretation Negative Tobacco use other than smoking: Question Answer Notes Are you an other tobacco user? No Vital Signs Height 5ft 11 in in 02/02/2024 Weight 210 lbs 02/02/2024 BMI 29.29 kg/m2 02/02/2024 Procedures Procedure Date Ordered Date Performed Result Body Sit e 71099-PVEKQTX NAIL, 6 OR MORE 02/02/2024 N/A 91535-ZQWW SKIN LESIONS, OVER 4 02/02/2024 N/A Encounters Encounter Location Date Provider Diagnosis [facility] [address] [place] [id number] 02/02/2024 Chris Arambula Type 2 diabetes mellitus with diabetic polyneuropathy E11.42 ; Tinea unguium B35.1 ; Other hammer toe(s) (acquired), right foot M20.41 and Other hammer toe(s) (acquired), left foot M20.42 Assessments Encounter Date Diagnosis (ICD Code) Assessment Notes Treatment Notes Treatment Clinical Notes Section Notes 02/02/2024 Type 2 diabetes mellitus with diabetic polyneuropathy (ICD-10 - E11.42) 02/02/2024 Tinea unguium (ICD-10 - B35.1) 02/02/2024 Other hammer toe(s) (acquired), right foot (ICD-10 - M20.41) Patient Educated with: DIABETIC FOOT CARE INSTRUCTIONS. pdf (DIABETIC FOOT CARE INSTRUCTIONS. pdf) 02/02/2024 Other hammer toe(s) (acquired), left foot (ICD-10 - M20.42) Plan Of Treatment Medication Medication Name Sig Start Date Stop Date Notes Extra Depth Orthopedic Shoes (1 Pair) with Customized Heat Molded Multidensity Innersoles (3 Pair) as directed Dx: NIDDM/Polyneuropathy (E11.42), Hammertoe Foot Deformity (M20.41,M20.42), Preulcerative Skin Lesion(s) (L85.1 Treatment Notes Assessment Notes Other hammer toe(s) (acquired), right fo ot Patient Educated with: DIABETIC FOOT CARE INSTRUCTIONS.pdf (DIABETIC FOOT CARE INSTRUCTIONS.pdf) Pending Test Test Name Order Date [id number] NAIL, 6 OR MORE 02/02/2024 17579-HJYE SKIN LESIONS, OVER 4 02/02/20 24 Next Appt Details Follow Up: prn, Reason: Provider Name:Chris Arambula , 05/10/2024 11:30:00 AM, [address] [facility], [address], [place], [address], Procedure Notes * Category Sub-Category Detail Notes Debride Nail 6-10 Nail debridement Performance o f this nail treatment by a nonprofessional would put this patients foot and overall health at risk. Therefore, nail debridement was performed extensively to reduce/remove overall nail length, girth, thickness, subungual debris, and necrotic tissue, by manual and/or electrical means through the use of a nail nipper and/or dremel-type turbinated bone grinder, to a more viable healthy nail plate or bed tissue 6-10. Silver nitrate used for any petechial bleeding as necessary. Definitive antifungal treatment options have been reviewed and discussed with the patient. The patient chooses, no pharmaceutical tx - 70662 Keratoma Treatment Parring or Cutting o f Benign Hyperkeratotic Lesion(s) (-57) More than 4 Lesions - The Benign hyperkeratotic lesions, as described above were pared, and/or cut utilizing a sterile 15 blade, tissue nippers, and/or dremel - 53012 Progress Notes * Laron ARNOLDDOB: [birth year] (68 yo M)Acc No.[id number]:02/02/2024 Progress Note Patient:?Laron Arnold Provider:?Chris Arambula DPM :1955???Age:68 Y???Sex:Male Gorge e:02/02/2024 Address:[address] [place], [place] [id number] Pcp:Balbir Schmid MD Subjective: * Chief Complaints: * ???At Risk FootcareToe Irrit ation * HPI: ???At Risk footcare:?Pt States Last PCP Visit:?Date?01/19/2024 ???Toe pain:?Location:?B/L feet.?Duration:?several years.?Course:?worse.?Aggravated by:?shoes, any pressure.?Treatments:?change in shoes.? * ROS:?General/Constitutional:?Nausea?denies.?Vomiting?denies.?Hunger Thirst?denies.?Loss appetite?denies.?Chills?denies.?Fatigue?denies.?Fever?denies.?Night Sweats?denies.?Unexplained weight loss?denies.?Unexplained weight gain?denies.?HEENTM:?Dentures?denies.?Dizziness?denies.?Glasses/contacts?denies.?Retinopathy?de nies.?Blurred/double vision?denies.?TMJ?denies.?Discharge/drainage?denies.?Implants?denies.?Sore throat?denies.?Dental implants?denies.?Hard of hearing ?denies.?Difficulty chewing/swallowing/speaking?denies.?Nose bleeds?denies.?Sore mouth?denies.?Respiratory:?On Oxygen?denies.?Pneumonia/pleurisy?denies.?Bronchitis?denies.?Emphysema?denies.?C oughing?denies.?Cough blood?denies.?Shortness of breath?denies.?Wheezing?denies.?Cardiovascular:?Pacemaker?denies.?MVP?denies.?WPW?denies.?CHF?denies.?Heart attack?denies.?Septal defect?denies.?Rapid beat?denies.?Chest pain ?denies.?Atrial Fib.?denies.?Murmur/Palpitations?denies.?Gastrointestinal:?Hemorrhoids?denies.?Stomach/Abdominal pain?denies.?Dark blood stool?denies.?Irritable bowel ?denies.?Constipation?denies.?Diarrhea?denies.?Hematology:?Swelling?admits.?Clots?denies.?Varicose Veins?admits.?Bruising?denies.?Bleeding problem?denies.?Genitourinary:?Blood urine?denies.?Frequent/Painfu/urination/bladder control?denies.?Kidney stones?denies.?Infection (UTI)?denies.?Nephropathy?denies.?sex trans dis (STD)?denies.?Prostate?denies.?Musculoskeletal:?Hammertoes?admits.?Bunions?denies.?Back Pain?denies.?Muscle Cramps/ Resting?denies.?Muscle cramps / walking?denies.?Generalized aches and pains?denies.?Weakness?denies.?Integ.:?Saenz?denies.?Scars?denies.?Corns/calluses?admits.?Ingrown nails?admits.?Painful nails?denies.?Open Sores?denies.?Rashes?denies.?Neurologic:?Difficulty sleeping?denies.?Brain disorder?denies.?Numbness?denies.?Balance trouble?denies.?Confusion?denies.?Fainting/blackouts?denies.?Tingling?denies.?Tr emors?denies.? * Medical History:? * Surgical History:?cataract s urgery * Hospitalization/Major Diagno stic Procedure:?No Hospitalization History. * Family History:?Mother: dece ased.?Father: .?Siblings: brother, diagnosed with Other malignant neoplasm of unspecified site, Diabetic - NIDDM.?Spouse: alive.? * Social History:?Tobacco Use:?Tobacco Use/Smoking?Are you a:?former smoker ?Additional Findings: Tobacco Non-User?Current non-smoker ?Tobacco use other than smoking?Are you an other tobacco user??No ???Drugs/Alcohol:?Drugs?Have you used drugs other than those for medical reasons in the past 12 months??No ?Alcohol Screen?Did you have a drink containing alcohol in the past year??Yes ?Points?0 ?Interpretation?Negative ???Miscellaneous:?Caffeine: yes, frequency:. ?no Exercise. ?Marital status: . ?Occupation: retired, [employer]. * Medications:?TakingAtorvasta tin Calcium Escitalopram Oxalate Folic Acid Lansoprazole Magnesium Oxide Phospha 250 Neutral Trulicity Vitamin B1 Extra Depth Orthopedic Shoes (1 Pair) with Customized Heat Molded Multidensity Innersoles (3 Pair) as directed Dx: NIDDM/Polyneuropathy (E11.42), Hammertoe Foot Deformity (M20.41,M20.42), Preulcerative Skin Lesion(s) (L85.1Taking Atorvastatin Calcium Taking Escitalopram Oxalate Taking Folic Acid Taking Lansoprazole Taking Magnesium Oxide Taking Phospha 250 Neutral Taking Trulicity Taking Vitamin B1 Taking Extra Depth Orthopedic Shoes (1 Pair) with Customized Heat Molded Multidensity Innersoles (3 Pair) as directed Dx: NIDDM/Polyneuropathy (E11.42), Hammertoe Foot Deformity (M20.41,M20.42), Preulcerative Skin Lesion(s) (L85.1Not-Taking/PRNCiclopirox Olamine 0.77 % Cream 1 application to affected area Externally to feet Twice a dayGabapentin Synjardy Medication List reviewed and reconciled with the patientNot-Taking/PRN Ciclopirox Olamine 0.77 % Cream 1 application to affected area Externally to feet Twice a dayNot-Taking/PRN Gabapentin Not-Taking/PRN Synjardy Medication List reviewed and reconciled with the patient * Allergies:?Niacinyes[Allergi es Verified] Objective: * Vitals:?Ht:5ft 11 in, Wt:210 , BMI:29.29, Shoe size:11, BS:213, Ht-cm: 180.34 cm, Wt-k.25 kg. * ???Past Orders: ???Lab:HEMOGLOBIN A1C (GLYCO HEMOGLOBIN) (Order Date - 01/19/2024) (Collection Date - 01/19/2024) ? Value Reference Range ?TOTAL HEMOGLOBIN (HGBA1C) 7.2 * Examination: ???Neurological: ?SENSORY:? Neurological exam demonstrates, reduced light touch sensation, reduced sharp/dull pin prick discrimination , B/L, 5.07 monofilament test performed at plantar aspects of 5 varied sites per foot shows sensation, reduced , B/L.?Nails: ?NAILS are:?Elongated, overgrown, dystrophic, lytic, greater than 3mm thick, discolored and friable with crumbly malodorous subungual debris, 1-5 B/L.?Dermatologic: ?SKIN FINDINGS:? Skin exam reveals Keratotic lesion(s) located at, SUB MTH (s), 1, B/L , SUB MTH (s), 5, B/L , Heel(s), B/L.?Orthopedic: ?MUSCLE STRENGTH:?5/5 all groups in a symmetrical fashion , B/L.?FOOT MORPHOLOGY:? No Charcot collapse/destruction noted at MTJ.?DIGITAL DEFORMITIES:?Digital contracture, PIPJ, 2-5 B/L, incompl-reducible to push-up test, no over, nor underlapping , with evidence of shoe producing skin irritation.?FOOTWEAR:?worn, OT were inspected and noted to be severely worn , in poor condition not giving proper support at the present time , shoe gear properties exacerbate patients foot/toe deformity.?Vascular: ?DP PULSES(B):?1/4, LEFT, 2/4, RIGHT.?PT PULSES(B):? 0/4, B/L.?CAPILLARY FILL TIME:? 3-4 secs. per digit, B/L.?TROPHIC CONDITION-TEXTURE/ELASTICITY/TURGOR/HAIR GROWTH(B):? decreased, with sparse to absent hair growth, B/L.?TEMPERTURE GRADIENT(C):? decreased, cool to cool, proximal to distal, B/L.?PIGMENTATION:?brawny, B/L.?EDEMA(C):? 2/4, non-pitting, without aching pain, B/L, Leg(s).?Ophthalmology Referral: ?DIABETES EYE EXAM?General Examination: ?GENERAL APPEARANCE:?Reveals a pleasant, alert, well nourished, well- developed, well hydrated individual, who demonstrates proper attention to hygiene/body habitus, and is in no acute distress, Pt serves as own historian for office visit today.?ORIENTED:?person, place, and time.?FOOT EXAM:?Footwear Evaluation? Assessment: * Assessment: 1.?Type 2 diabetes mellitus with diabetic polyneuropathy - E11.42 (Primary)?2.?Tinea unguium - B35.1?3.?Other hammer toe(s) (acquired), right foot - M20.41, Chronic problem, Worse (4),Rx Management (4)?4.?Other hammer toe(s) (acquired), left foot - M20.42, Chronic problem, Worse (4),Rx Management (4)? Plan: * Treatment: 2.?Other hammer toe(s) (acqu ired), right foot? Start Extra Depth Orthopedic Shoes (1 Pair) with Customized Heat Molded Multidensity Innersoles (3 Pair), as directed, Dx: NIDDM/Polyneuropathy (E11.42), Hammertoe Foot Deformity (M20.41,M20.42), Preulcerative Skin Lesion(s) (L85.1, 1, Refills 0.?? Notes: Patient Educated with: DIABETIC FOOT CARE INSTRUCTIONS.pdf (DIABETIC FOOT CARE INSTRUCTIONS.pdf)?? * Procedures:?Debride Nail 6-10:?Nail debridement?Performance of this nail treatment by a nonprofessional would put this patients foot and overall health at risk. Therefore, nail debridement was performed extensively to reduce/remove overall nail length, girth, thickness, subungual debris, and necrotic tissue, by manual and/or electrical means through the use of a nail nipper and/or dremel-type turbinated bone grinder, to a more viable healthy nail plate or bed tissue 6-10. Silver nitrate used for any petechial bleeding as necessary. Definitive antifungal treatment options have been reviewed and discussed with the patient. The patient chooses, no pharmaceutical tx - 45286.?Keratoma Treatment:?Parring or Cutting of Benign Hyperkeratotic Lesion(s)?(-57) More than 4 Lesions - The Benign hyperkeratotic lesions, as described above were pared, and/or cut utilizing a sterile 15 blade, tissue nippers, and/or dremel - 62660.? * Procedure Codes:?62727 DEBRI DE NAIL, 6 OR MORE, Modifiers: XS 26108 TRIM SKIN LESIONS, OVER 4, Modifiers: XS * Preventive Medicine:? ??Counseling:?Discussion:?-14: Office or other outpatient visit for the evaluation and management of an established patient, which required a medically appropriate history and/or examination and MODERATE level of DECISION MAKING for: 1 OR MORE CHRONIC PROBLEM(S) THATS WORSENING, 2 STABLE CHRONIC PROBLEMS, A NEWLY DIAGNOSED PROBLEM WITH UNCERTAIN PROGNOSIS, AN ACUTE COMPLICATED INJURY WITH MULTIPLE TREATMENT OPTIONS, OR AN ACUTE PROBLEM WITH ACCOMPANYING SYSTEMIC SYMPTOMS, THAT POSE(S) A MODERATE RISK OF MORBIDITY. THIS CONDITION MAY ALSO INCLUDE RX DRUG MANAGEMENT, OR A DECISON FOR MINOR SURGERY. The visit on the day of the encounter encompassed interpreting the data and educating the patient as to the nature of their condition, treatment options available according to their individual PMH, meds, allergies, and overall health/living conditions, as well as any potential risks or complications that may occur from a failure to adhere to, and participate in, the recommended course of therapy. The discussion included a complete verbal, and/or written explanation of the examination results, any x-rays taken, the proposed diagnosis, and outline of the treatment plan. A schedule for future care needs was also explained. The patient verbalized an understanding of the instructions at this time and agreed to be an active participant in their treatment. If the patient should think of any questions or concerns after the visit, I have encouraged the patient to call the office.?Digital Surgery:?Digital surgery was discussed with the patient, We elected to try conservative treatment at the present time, due to the patients medical history and increased asssociated post-operative risks.?Digital Treatment:?HT- I explained to the patient the possible etiologies of Hammertoes, including genetics/foot type/shoegear/activity level/exercise routine and the risks/benefits of all the different treatment options for their pain including: No treatment at all, Rest, Ice, New/supportive/wider/deeper Shoegear, Digital Padding/Strapping/Taping/Bracing/Gel protective sleeves, Foot/Ankle AFO Bracing, Stretching exercises, Deep Tissue Massage, Arch support/shoe inserts with splay metatarsal padding, and Custom orthoses. I insisted that any digital devices be removed daily and not worn overnight for safety. The patient is to carefully examine the toes daily for any skin irritation while using any splinting or padding device. The advantages and disadvantages of each option were discussed and the patients questions re: shoegear, padding, custom vs prefabricated inserts, activity level, and consistency in home treatment regimens for optimal success were answered to their verbally confirmed satisfaction.?Shoe Gear Counseling:?SHOE Rx - The patient was counseled in great detail on their muscoloskeletal foot and toe deformities which coincided with the dermatological presentations visualized on exam. We discussed how their deformities put the integrity of their feet at risk for potential pedal complications which makes the accomidative diabetic shoes and cutomizable inserts medically necessary. We discussed the different shoe and insert treatment types and options, as well as the important advantages for adhering to regularly wearing these accomidative devices daily. The patient was made aware of the fact that a failure to abide by these recommedations may be deleterious to their foot health as they are able to prevent many pedal complications such as skin irritation, skin ulceration, infection, and even loss of toe/foot/leg/or life. Time was also spent with the patient dispensing and discussing proper diabetic footcare techniques including daily skin moisturization, daily foot inspection for any interruption in skin integrity including open lesions, or sign of infection such as redness/malodor/drainage/swelling. Also discussed and recommended were procedures regarding daily shoe inspection for the presence of internal foreign bodies as well as any visualized irregular shoe or insert wear. Patient questions re: shoes, inserts, and self foot inspections were answered to their satisfaction as the patient verbally confirmed a full understanding of the above information. A Rx for Extra Depth Orthopedic Shoes with 3 pair of custom heat-molded inserts was dispensed.? ??Screening/Special Tests:?Fall Risk?Assessment:?Performed ?Plan of Care:?Documented ?Screening:?No falls in the past year ?FALLS: Screening for Future Fall Risk?Have you had any falls with injury in the past year??No * Follow Up:?prn * Images: * Sign off status: Completed true * Provider:?Chris Arambula DPM Date:?2023 Generated for Ulisses roberts/Junior/Shi on:?03/10/2024 01:46 AM EST History and Physical Notes * HPI (History of Present Illness) Category Sub-Category Detail Notes Category Not es Toe pain Location: B/L feet Duration: several years Course: worse Aggravated by: shoes, any pressure Treatments: change in shoes At Risk footcare Pt States Last PCP Visit: Date: 4 Examination Category Sub-Category Detail Notes Category Not es Neurological SENSORY: Neurological exa m demonstrates, reduced light touch sensation, reduced sharp/dull pin prick discrimination , B/L, 5.07 monofilament test performed at plantar aspects of 5 varied sites per foot shows sensation, reduced , B/L Dermatologic SKIN FINDINGS: Skin exam reveal s Keratotic lesion(s) located at, SUB MTH (s), 1, B/L , SUB MTH (s), 5, B/L , Heel(s), B/L Orthopedic FOOT MORPHOLOGY: No Charcot howard apse/destruction noted at MTJ FOOTWEAR: worn, OT were inspec higinio and noted to be severely worn , in poor condition not giving proper support at the present time , shoe gear properties exacerbate patients foot/toe deformity DIGITAL DEFORMITIES: Digital contracture , PIPJ, 2-5 B/L, incompl-reducible to push-up test, no over, nor underlapping , with evidence of shoe producing skin irritation MUSCLE STRENGTH: 5/5 all groups in a symmetrical fashion , B/L General Examination GENERAL APPEARANCE: Reveals a pleasant, alert, well nourished, well-developed, well hydrated individual, who demonstrates proper attention to hygiene/body habitus, and is in no acute distress, Pt serves as own historian for office visit today FOOT EXAM: Lower Extremity Neurological Exa m performed:: Yes ORIENTED: person, place, and t be Footwear Evaluation Footwear Evaluation performe d:: Yes Ophthalmology Referral DIABETES EYE EXAM Diabetic Retinopa thy Screening:: Yes Findings of Diabetic Eye Exam:: no retin opathy Vascular DP PULSES(B): 1/4, LEFT, 2/4, RIGHT PT PULSES(B): 0/4, B/L CAPILLARY FILL TIME: 3-4 secs. per digit , B/L TEMPERTURE GRADIENT(C): decreased, cool to cool, proximal to distal, B/L TROPHIC CONDITION-TEXTURE/ELASTICITY/TURGOR/HAIR GROWTH(B): decreased, with sparse to absent hair gr owth, B/L EDEMA(C): 2/4, non-pitting, wi thout aching pain, B/L, Leg(s) PIGMENTATION: brawny, B/L Nails NAILS are: Elongated, overg rown, dystrophic, lytic, greater than 3mm thick, discolored and friable with crumbly malodorous subungual debris, 1-5 B/L
--- OUTSIDE RECORDS SUMMARY | 2024-03-10 01:46 | XMS_ITS ---
Author Organization [facility] Address [address] [place] [address] Care Team Providers Care Resp Ther Name Role Phone Sharmaine WALLACE, Balbir Primary Care Provider Chris Douglas Unavailable [phone] Encounters Encounter Location Date Provider Diagnosis [address] [address] 09/25/2023 Chris Arambula Plan Of Treatment Next Appt Details Provider Name:Chris Arambula , 05/10/2024 11:30:00 AM, [address], [phone], Progress Notes * Laron ARNOLDDOB: [birth year] (68 yo M)Acc No.[id number]:09/25/2023 Progress Note Patient:?Laron ARNOLD Provider:?Chris Arambula DPM :1955???Age:67 Y???Sex:Male Gorge e:09/25/2023 Address:[address] [place], [place] [id number] Pcp:Balbir Schmid MD Subjective: * Chief Complaints: * ??? * Medical History:? Objective: * Vitals:? Assessment: Plan: * Treatment: * Images: * The named appointment provid er may or may not be the originator of this progress note, and it is not deemed complete until electronically signed by the appointment provider. Sign off status: Pending * Provider:?Chris Arambula DPM Date:?2023 Generated for Ulisses roberts/Junior/Shi on:?03/10/2024 01:46 AM EST
--- OUTSIDE RECORDS SUMMARY | 2024-03-10 01:46 | XMS_ITS ---
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 Name Role Phone Balbir Schmid MD Primary Care Provider Chris Douglas Unavailable [phone] Allergies Allergen (clinical drug ingredient) Drug/Non Drug Allergy documented on EMR Reaction Allergy Type Onset Date Status niacin Niacin Unknown Drug Allergy Active REASON FOR VISIT At Risk Footcare Medications Medication SIG (Take, Route, Frequency, Duration) Notes Start Date End Date Status Gabapentin Not-Takin g Extra Depth Orthopedic Shoes (1 Pair) with Customized Heat Molded Multidensity Innersoles (3 Pair) as directed Dx: NIDDM/Polyneuropathy (E11.42), Hammertoe Foot Deformity (M20.41,M20.42), Preulcerative Skin Lesion(s) (L85.1 03/12/2023 Active Synjardy Not-Taking Ciclopirox Olamine 0.77 % 1 application to affected area Externally to feet Twice a day for 30 days Active Vitamin B1 Active Trulicity Active Phospha 250 Neutral Active Folic Acid Active Magnesium Oxide Acti ve Lansoprazole Active Escitalopram Oxalate Active Atorvastatin Calcium Active Social History Tobacco Use: Social History Observation [...] Vital Signs Height 5ft 11 in in 11/03/2023 Weight 205 lbs 11/03/2023 BMI 28.59 kg/m2 11/03/2023 Procedures Procedure Date Ordered Date Performed Result Body Sit e 68572-MFIHQSR NAIL, 6 OR MORE 11/03/2023 N/A 03002-HXAF SKIN LESIONS, OVER 4 11/03/2023 N/A Encounters Encounter Location Date Provider Diagnosis [facility] [place] [address] [address] 11/03/2023 Chris Arambula Type 2 diabetes mellitus with diabetic polyneuropathy E11.42 and Tinea unguium B35.1 Assessments Encounter Date Diagnosis (ICD Code) Assessment Notes Treatment Notes Treatment Clinical Notes Section Notes 11/03/2023 Type 2 diabetes mellitus with diabetic polyneuropathy (ICD-10 - E11.42) 11/03/2023 Tinea unguium (ICD-10 - B35.1) Plan Of Treatment Pending Test Test Name Order Date 84091-EGWTDPN NAIL, 6 OR MORE 11/03/2023 86861-EXIG SKIN LESIONS, OVER 4 11/03/19 24 Next Appt Details Follow Up: prn, Reason: Provider Name:Chris Arambula , 05/10/2024 11:30:00 AM, [address] [facility], [place] [address], [place], [address], Procedure Notes * Category Sub-Category Detail Notes Debride Nail 6-10 Nail debridement Nail debridem ent performed extensively to reduce/remove overall nail length, girth, thickness, subungual debris, and necrotic tissue, by manual and electrical means through the use of a nail nipper and/or dremel, to more viable healthy nail plate or bed tissue 6-10. Silver nitrate used for any petechial bleeding as necessary. Patient chooses, no pharmaceutical tx (64477) Keratoma Treatment Parring or Cutting o f Benign Hyperkeratotic Lesion(s) 27515 ( More than 4 Lesions ) - The Benign hyperkeratotic lesions, as described above were pared, and/or cut utilizing a sterile 15 blade, tissue nippers, and/or dremel Progress Notes * Kayla ARNOLD: [birth year] (67 yo M)Acc No.[id number]:11/03/2023 Progress Note Patient:?Laron Arnold Provider:?Chris Arambula DPM :1955???Age:67 Y???Sex:Male Gorge e:11/03/2023 Address:[address] [place] [address] [facility] [id number] Pcp:Balbir Schmid MD Subjective: * Chief Complaints: * ???At Risk Footcare * HPI: ???At Risk footcare:?Pt States Last PCP Visit:?Date?05/26/2023 States has an appt with PCP soon - Sep * ROS:?General/Constitutional:?Nausea?denies.?Vomiting?denies.?Hunger Thirst?denies.?Loss appetite?denies.?Chills?denies.?Fatigue?denies.?Fever?denies.?Night Sweats?denies.?Unexplained weight loss?denies.?Unexplained weight gain?denies.?HEENTM:?Dentures?denies.?Dizziness?denies.?Glasses/contacts?denies.?Retinopathy?de nies.?Blurred/double vision?denies.?TMJ?denies.?Discharge/drainage?denies.?Implants?denies.?Sore throat?denies.?Dental implants?denies.?Hard of hearing ?denies.?Difficulty chewing/swallowing/speaking?denies.?Nose bleeds?denies.?Sore mouth?denies.?Respiratory:?On Oxygen?denies.?Pneumonia/pleurisy?denies.?Bronchitis?denies.?Emphysema?denies.?C oughing?denies.?Cough blood?denies.?Shortness of breath?denies.?Wheezing?denies.?Cardiovascular:?Pacemaker?denies.?MVP?denies.?WPW?denies.?CHF?denies.?Heart attack?denies.?Septal defect?denies.?Rapid beat?denies.?Chest pain ?denies.?Atrial Fib.?denies.?Murmur/Palpitations?denies.?Gastrointestinal:?Hemorrhoids?denies.?Stomach/Abdominal pain?denies.?Dark blood stool?denies.?Irritable bowel ?denies.?Constipation?denies.?Diarrhea?denies.?Hematology:?Swelling?admits.?Clots?denies.?Varicose Veins?admits.?Bruising?denies.?Bleeding problem?denies.?Genitourinary:?Blood urine?denies.?Frequent/Painfu/urination/bladder control?denies.?Kidney stones?denies.?Infection (UTI)?denies.?Nephropathy?denies.?sex trans dis (STD)?denies.?Prostate?denies.?Musculoskeletal:?Hammertoes?admits.?Bunions?denies.?Back Pain?denies.?Muscle Cramps/ Resting?denies.?Muscle cramps / walking?denies.?Generalized aches and pains?denies.?Weakness?denies.?Integ.:?Saenz?denies.?Scars?denies.?Corns/calluses?admits.?Ingrown nails?denies.?Painful nails?denies.?Open Sores?denies.?Rashes?denies.?Neurologic:?Difficulty sleeping?denies.?Brain disorder?denies.?Numbness?denies.?Balance trouble?denies.?Confusion?denies.?Fainting/blackouts?denies.?Tingling?denies.?Tr emors?denies.? * Medical History:? * Surgical History:?cataract s urgery * Hospitalization/Major Diagno stic Procedure:?No Hospitalization History. * Family History:?Mother: dece ased.?Father: .?Siblings: brother, diagnosed with Diabetic - NIDDM, Other malignant neoplasm of unspecified site.?Spouse: alive.? * Social History:?Tobacco Use:?Tobacco Use/Smoking?Are you a:?former smoker ?Additional Findings: Tobacco Non-User?Current non-smoker ?Tobacco use other than smoking?Are you an other tobacco user??No ???Drugs/Alcohol:?Drugs?Have you used drugs other than those for medical reasons in the past 12 months??No ?Alcohol Screen?Did you have a drink containing alcohol in the past year??Yes ?Points?0 ?Interpretation?Negative ???Miscellaneous:?Caffeine: yes, frequency:. ?no Exercise. ?Marital status: . 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 * Medications:?TakingAtorvasta tin Calcium Escitalopram Oxalate Folic Acid Lansoprazole Magnesium Oxide Phospha 250 Neutral Trulicity Vitamin B1 Ciclopirox Olamine 0.77 % Cream 1 application to affected area Externally to feet Twice a dayExtra Depth Orthopedic Shoes (1 Pair) with Customized Heat Molded Multidensity Innersoles (3 Pair) as directed Dx: NIDDM/Polyneuropathy (E11.42), Hammertoe Foot Deformity (M20.41,M20.42), Preulcerative Skin Lesion(s) (L85.1Taking Atorvastatin Calcium Taking Escitalopram Oxalate Taking Folic Acid Taking Lansoprazole Taking Magnesium Oxide Taking Phospha 250 Neutral Taking Trulicity Taking Vitamin B1 Taking Ciclopirox Olamine 0.77 % Cream 1 application to affected area Externally to feet Twice a dayTaking Extra Depth Orthopedic Shoes (1 Pair) with Customized Heat Molded Multidensity Innersoles (3 Pair) as directed Dx: NIDDM/Polyneuropathy (E11.42), Hammertoe Foot Deformity (M20.41,M20.42), Preulcerative Skin Lesion(s) (L85.1Not-Taking/PRNGabapentin Synjardy Medication List reviewed and reconciled with the patientNot-Taking/PRN Gabapentin Not-Taking/PRN Synjardy Medication List reviewed and reconciled with the patient * Allergies:?Niacinyes[Allergi es Verified] Objective: * Vitals:?Ht:5ft 11 in, Wt:205 , BMI:28.59, Shoe size:11, BS:125, Ht-cm: 180.34 cm, Wt-k.99 kg. * Examination: ???Neurological: ?SENSORY:? Neurological exam demonstrates, [...] SUB MTH (s), 5, B/L , Heel(s), B/L.? Assessment: * Assessment: 1.?Type 2 diabetes mellitus with diabetic polyneuropathy - E11.42 (Primary)?2.?Tinea unguium - B35.1? Plan: * Treatment: * Procedures:?Debride Nail 6-10:?Nail debridement?Nail debridement performed extensively to reduce/remove overall nail length, girth, thickness, subungual debris, and necrotic tissue, by manual and electrical means through the use of a nail nipper and/or dremel, to more viable healthy nail plate or bed tissue 6-10. Silver nitrate used for any petechial bleeding as necessary. Patient chooses, no pharmaceutical tx (72708).?Keratoma Treatment:?Parring or Cutting of Benign Hyperkeratotic Lesion(s)?34179 ( More than 4 Lesions ) - The Benign hyperkeratotic lesions, as described above were pared, and/or cut utilizing a sterile 15 blade, tissue nippers, and/or dremel.? * Procedure Codes:?88372 DEBRI DE NAIL, 6 OR MORE, Modifiers: XS 93823 TRIM SKIN LESIONS, OVER 4, Modifiers: XS * Follow Up:?prn * Images: * Sign off status: Completed true * Provider:?Chris Arambula DPM Date:?2023 Generated for Ulisses roberts/Junior/Shi on:?03/10/2024 01:46 AM EST History and Physical Notes * HPI (History of Present Illness) Category Sub-Category Detail Notes Category Not es At Risk footcare Pt States Last PCP Visit: Date: 05/26/2023 States has an appt with PCP soon - Sep Examination Category Sub-Category Detail Notes Category Not [...] MTH (s), 5, B/L , Heel(s), B/L Nails NAILS are: Elongated, overg rown, dystrophic, lytic, greater than 3mm thick, discolored and friable with crumbly malodorous subungual debris, 1-5 B/L
--- OUTSIDE RECORDS SUMMARY | 2024-03-10 01:47 | XMS_ITS | Patient Health Record ---
Author Organization [facility] Address [address] [place] [address] Care Team Providers Care Plumbing Instructor Name Role Phone Balbir Schmid MD Primary Care Provider Chris Douglas Unavailable [phone] Allergies Allergen (clinical drug ingredient) Drug/Non Drug Allergy documented on EMR Reaction Allergy Type Onset Date Status niacin Niacin Unknown Drug Allergy Active Results Component Value Reference Range Notes HEMOGLOBIN A1C (GLYCOHEMOGLO BIN) Reviewed date:03/12/2023 09:53:36 AM Interpretation: Performing Lab: Notes/Report: HEMOGLOBIN A1C % (HH) 7.5 HEMOGLOBIN A1C (GLYCOHEMOGLO BIN) Reviewed date:02/02/2024 11:28:01 AM Interpretation: Performing Lab: Notes/Report: TOTAL HEMOGLOBIN (HGBA1C) 7.2 Reason For Referral No Information Medications Medication SIG (Take, Route, Frequency, Duration) [...] Are you an other tobacco user? No Problems Problem Type SNOMED Code ICD Code Onset Dates Problem Status W/U Status Risk Notes Problem Acquired hammer toe of right foot (7474734588414165 ) Other hammer toe(s) (acquired), right foot (M20.41) Active confirmed Response to treatment, Improvemen t Problem Acquired hammer toe of left foot (7360834036647149 ) Other hammer toe(s) (acquired), left foot (M20.42) Active confirmed Response to treatment, Improvemen t Problem Polyneuropathy due to type 2 diabetes mellitus (708902695) Type 2 diabetes mellitus with diabetic polyneuropathy (E11.42) Active confirmed Vital Signs Height 5ft 11 in in 02/02/2024 Weight 210 lbs 02/02/2024 BMI 29.29 kg/m2 02/02/2024 Procedures Procedure Date Ordered Date Performed Result Body Sit e 87602-QFZSUXE NAIL, 6 OR MORE 03/12/2023 N/A 60746-NNZN SKIN LESIONS, OVER 4 03/12/2023 N/A 33915-FNZBKOJ NAIL, 6 OR MORE 06/26/2023 N/A 46487-GSDO SKIN LESIONS, OVER 4 06/26/2023 N/A 55327-NIIRGSW NAIL, 6 OR MORE 11/03/2023 N/A 16404-CGLP SKIN LESIONS, OVER 4 11/03/2023 N/A 72567-ALNILTD NAIL, 6 OR MORE 02/02/2024 N/A 52716-QNUY SKIN LESIONS, OVER 4 02/02/2024 N/A Encounters Encounter Location Date Provider Diagnosis [facility] [address] [address] 03/12/2023 Chris Arambula Type 2 diabetes mellitus with diabetic polyneuropathy E11.42 ; Tinea unguium B35.1 ; Other hammer toe(s) (acquired), right foot M20.41 and Other hammer toe(s) (acquired), left foot M20.[address] [address] 06/26/2023 Chris Ralf Type 2 diabetes mellitus with diabetic polyneuropathy E11.42 ; Tinea unguium B35.1 ; Other hammer toe(s) (acquired), right foot M20.41 and Other hammer toe(s) (acquired), left foot M20.[address] [address] 11/03/2023 Chris Arambula Type 2 diabetes mellitus with diabetic polyneuropathy E11.42 and Tinea unguium B35.[address] [address] 02/02/2024 Chris Arambula Type 2 diabetes mellitus with diabetic polyneuropathy E11.42 ; Tinea unguium B35.1 ; Other hammer toe(s) (acquired), right foot M20.41 and Other hammer toe(s) (acquired), left foot M20.[address] [address] 03/12/[address] [address] 06/16/2023 [facility] [address] [address] 09/23/2023 Chris Arambula Assessments Encounter Date Diagnosis (ICD Code) Assessment Notes Treatment Notes Treatment Clinical Notes Section Notes 03/12/2023 Type 2 diabetes mellitus with diabetic polyneuropathy (ICD-10 - E11.42) 03/12/2023 Tinea unguium (ICD-10 - B35.1) 06/26/2023 Type 2 diabetes mellitus with diabetic polyneuropathy (ICD-10 - E11.42) 06/26/2023 Tinea unguium (ICD-10 - B35.1) 11/03/2023 Type 2 diabetes mellitus with diabetic polyneuropathy (ICD-10 - E11.42) 11/03/2023 Tinea unguium (ICD-10 - B35.1) 02/02/2024 Type 2 diabetes mellitus with diabetic polyneuropathy (ICD-10 - E11.42) 02/02/2024 Tinea unguium (ICD-10 - B35.1) 02/02/2024 Other hammer toe(s) (acquired), right foot (ICD-10 - M20.41) Patient Educated with: DIABETIC FOOT CARE INSTRUCTIONS. pdf (DIABETIC FOOT CARE INSTRUCTIONS. pdf) 06/26/2023 Other hammer toe(s) (acquired), right foot (ICD-10 - M20.41) Response to treatment,Impro vement 03/12/2023 Other hammer toe(s) (acquired), right foot (ICD-10 - M20.41) Patient Educated with: DIABETIC FOOT CARE INSTRUCTIONS. pdf (DIABETIC FOOT CARE INSTRUCTIONS. pdf) 03/12/2023 Other hammer toe(s) (acquired), left foot (ICD-10 - M20.42) 06/26/2023 Other hammer toe(s) (acquired), left foot (ICD-10 - M20.42) Response to treatment,Impro vement 02/02/2024 Other hammer toe(s) (acquired), left foot (ICD-10 - M20.42) Plan Of Treatment Pending Test Test Name Order Date 50595-SHPKEFB NAIL, 6 OR MORE 12/06/2021 04763-FVXWPJK NAIL, 6 OR MORE 02/27/2022 46748-XPPUWYX NAIL, 6 OR MORE 05/29/2022 74838-NTBNKTV NAIL, 6 OR MORE 08/28/2022 40317-CCOFCSB NAIL, 6 OR MORE 12/04/2022 47793-BNEXOZY NAIL, 6 OR MORE 03/12/2023 93886-AGJFUSM NAIL, 6 OR MORE 06/26/2023 50216-JVNDADS NAIL, 6 OR MORE 11/03/2023 37034-EHPTAWW NAIL, 6 OR MORE 02/02/2024 40249-ISDX SKIN LESIONS, OVER 4 02/02/20 24 83369-JTSW SKIN LESIONS, OVER 4 11/03/19 24 35923-HPIB SKIN LESIONS, OVER 4 06/26/19 24 49540-OBPR SKIN LESIONS, OVER 4 03/12/20 23 57023-DJHK SKIN LESIONS, OVER 4 12/05/19 23 77070-NJNS SKIN LESIONS, OVER 4 08/29/19 23 37373-VRED SKIN LESIONS, OVER 4 05/30/19 23 82480-QLQP SKIN LESIONS, 2 TO 4 02/28/20 22 80415-ZGXE SKIN LESIONS, 2 TO 4 12/07/19 22 Next Appt Details Provider Name:Chris Arambula , 05/10/2024 11:30:00 AM, [address] [facility], [address], [place], [address], Insurance Providers Payer Name Payer Address Payer Phone Subscriber Number Group Number Insured Name Patient Relationship to Insured Coverage Start Date Coverage End Date Medicare National [employer]t [employer] [address] [place] [address] [id number] Laron Morrison Self - patient is the insured [employer] [address] [place] [address] [phone] [id number] Laron Morrison Self - patient is the insured Medical (General) History Medical History History ICD Code type II diabetes Polyneuropathy Alcohol abuse Anxiety Depression Hypertension Peripheral vascular disease Back,Hip,and Knee pain Chron's/ Colitis CAD Surgical History Surgery Date(Month/Year) cataract surgery
== END 2024-03-04 11:50 | disposition home or self-care (01) ==
PROVIDERS: PCP Family Medicine; Visit Provider Urology
DX: R97.20 Elevated prostate specific antigen [PSA] (principal)
CPT/HCPCS: 99214

== ENCOUNTER → 2024-03-04 10:55 | Outpatient (BNVA) | payer MEDICARE, SELFPAY | PROVIDERS: PCP Family Medicine; Visit Provider Urology | DX: R97.20 Elevated prostate specific antigen [PSA] (principal) | CPT/HCPCS: 99212 ==

== ENCOUNTER 2024-03-10 11:47 | Outpatient (AMB) | payer MEDICARE, SELFPAY ==
[2024-03-10 11:49] VITALS: BP 148/72; PULSE 86; O2SAT 96; BMI 29.8
--- NOTE | 2024-03-10 11:49 | MHC.OFFVIS ---
Vital Signs 03/10/24 11:49 Height 5 ft 11 in Weight 213 lb 6.519 oz BMI 29.8 BP 148/72 H Blood Pressure Location Lt brachial Position Sitting Pulse 86 Pulse Source Pulse Oximeter Pulse Oximetry (%) 96 Oxygen Delivery Method Room Air Intake Visit Reasons: 3 month follow up Intake Note: ESTABLISHED PATIENT Laron presents in office today for a scheduled 3 mos FUV Meds and Allergies reviewed? Y No recent or relevant surgeries? N Any significant concerns or new changes? Nothing to report per pt. Pharmacy verified? [facility]. Allergies niacin [NIACIN] Adverse Reaction (Mild, Verified 03/10/24 11:50) RED FLUSH, SHAKING HPI HPI 3 month follow up: Details: LAST VISIT: Cirrhosis History of alcohol abuse Elevated liver enzymes Constipation GERD (gastroesophageal reflux disease) Plan Continue Nexium. Avoid dietary triggers and late night snacking. Avoid drinking alcohol. Low-fat, low-salt and low carb diet recommended. Increase exercise. Increase fluid intake and activity to promote better bowel motility. High-fiber diet and additional fiber if needed. Will recheck liver panel and liver fibrosis. Follow-up in 3-4 months, sooner on as needed basis. He is agreeable to this plan and verbalizes understanding of instructions. He was given the opportunity to ask questions and all questions answered. ? Thank you for allowing me to participate in his care Orders Orders Liver Panel Today R74.01 Liver Fibrosis Pnl Today K76.0 Medications New methylcellulose (laxative) (Citrucel) take it with full glass of water 500 mg PO DAILY 30 tabs 2RF K59.00 Discontinued sennosides (Natural Senna Laxative) Discontinued Reason: Doctor's Order 17.2 mg (2 x 8.6 mg) PO BEDTIME 60 tabs 3RF constipation K59.00 TODAY'S VISIT Patient is here today for follow-up and to discuss lab results. Patient's liver enzymes continue to be climbing. Patient does admit that he is drinking alcohol he started drinking back again. Phosphatidylethanol (PEth) level was 400 which means that patient is drinking moderate amount of alcohol. Patient denies any abdominal pain or discomfort. Denies any melena, hematochezia, unintentional weight loss or ribbon like stools. Patient denies any abdominal bloating, pruritus, jaundice. Patient reports to have good appetite. He is not eating high in salt. Patient reports that his PCP is referring him to detox and he will try to arrange for that. Patient denies any dyspepsia, dysphagia or odynophagia PFSH Medical History Bleeding hemorrhoids Transaminitis Hemorrhoids without complication History of alcohol abuse Diabetes type 2, uncontrolled PVD (peripheral vascular disease) Diabetic polyneuropathy associated with type 2 diabetes mellitus Diabetes type 2, controlled Alcohol abuse Hypertension Neuropathy Diabetes Depression Anxiety Surgical History H/O colonoscopy Family History Mother No problems noted. Father No problems noted. Social History Household Members: Family Housing: House Do you presently have visiting nurse or other home services: No Alcohol intake: former Patient Tobacco Use Status: Current everyday Tobacco user Tobacco use type: Cigarette Cigarettes Per Day: 4 Years Smoked: 50 e-Cigarette/Vaping Use: Never Used Second Hand Smoke Exposure: Yes service: No Current occupational status: retired Current occupational exposures/hazards: No Cognitive needs: Yes (cane) Hearing needs: No Vision needs: Yes (reading glasses) Review of Systems Const Denies weight gain and Denies weight loss ENT Reports no additional complaints, Denies dysphagia and Denies odynophagia Card Reports no additional complaints Resp Reports no additional complaints GI Denies abdominal pain, Denies belching, Denies melena, Denies bloating, Denies change in bowel habits, Denies dysphagia, Denies excessive flatus, Denies dyspepsia, Denies heartburn, Denies diarrhea, Denies loose stools, Denies nausea, Denies odynophagia and Denies vomiting Reports no additional complaints Musc Reports no additional complaints Neuro Reports no additional complaints Psych Reports no additional complaints Endo Reports no additional complaints Physical Exam Vital Signs: Last Vital Signs Pulse 86 03/10/24 11:49 BP 148/72 H 03/10/24 11:49 Pulse Ox 96 03/10/24 11:49 Oxygen Delivery Method Room Air 03/10/24 11:49 BMI result Body Mass Index 29.8 Const General: no acute distress Nutritional Appearance: obese Orientation/consciousness: patient oriented x3 Resp Effort & Inspection: normal respiratory effort, able to speak in complete sentences, no tracheal deviation and symmetric chest movement Auscultation: clear to auscultation bilaterally Cardio Rate: regular rate GI Inspection: Yes normal to inspection, No distended and Yes obesity Palpation (GI): Soft to palpation, not firm, nontender and No hepatosplenomegaly present Auscultation: Hyperactive bowel sounds present General: Yes no CVA tenderness Back/Spine/Pelvis Back: no CVA tenderness Skin General skin exam: elasticity normal, turgor normal and dry skin Neuro General: patient oriented x3 Psych Appearance: grossly normal Mental Status: mental status grossly normal Results Reviewed Results Reviewed: Laboratory Tests 12/05/23 12/17/23 09:22 10:45 AST 49 H ALT 22 Alkaline Phosphatase 183 H Liver Fibrosis Stage F4 PEth 16:0/18.1 (POPEth) >400 (H) PEth 16:0/18.2 (PLPEth) >400 (H) Assessment & Plan Assessment & Plan (1) Alcohol abuse: Code(s): F10.10 - Alcohol abuse, uncomplicated Category: Social Hx (2) Cirrhosis: Code(s): K74.60 - Unspecified cirrhosis of liver Category: Medical Qualifiers: Hepatic cirrhosis type: alcoholic cirrhosis Ascites presence: without ascites Qualified Code(s): K70.30 - Alcoholic cirrhosis of liver without ascites (3) Elevated liver enzymes: Code(s): R74.8 - Abnormal levels of other serum enzymes Category: Medical Plan Long discussion with patient about abstaining from alcohol. Patient will be sent for ultrasound with elastography. Will check vitamin levels, recheck liver panel. We will also do Hep A, B,C panel again and if antibodies are negative patient will be asked to return to the office for vaccine A and B. 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 Patient will try to go into detox so we can safely quit drinking. PCP put the referral in in the middle of December. Patient was encouraged to follow-up. I will see patient in 6 months. He understands that he needs to quit drinking and follow low protein, low carb, low-fat and low-salt diet. List of food recommended for patients with liver cirrhosis given to him. He is agreeable to current plan of care and verbalizes understanding of instructions. He was given the opportunity to ask questions and all questions answered. Thank you for allowing me to participate in his care Orders: Orders Vitamin A Today K86.89 - Other specified diseases of pancreas Vitamin B3 (Niacin) Today K86.89 - Other specified diseases of pancreas Vitamin D 25-OH (D2 and D3) Today E55.9 - Vitamin D deficiency, unspecified Magnesium Today N18.9 - Chronic kidney disease, unspecified Hepatitis A,B,C Profile Today R79.89 - Other specified abnormal findings of blood chemistry Liver Panel Today R74.01 - Elevation of levels of liver transaminase levels US abdomen lezama w elastography Today K76.0 - Fatty (change of) liver, not elsewhere classified Prothrombin Time INR Today R74.8 - Abnormal levels of other serum enzymes Vitamin B12 and Folate Today R19.7 - Diarrhea, unspecified Coding Level of Care Code Est Pt Level 4 (23288) Diagnoses Alcohol abuse F10.10 Alcoholic cirrhosis of liver without ascites K70.30 Hepatic cirrhosis type: alcoholic cirrhosis Ascites presence: without ascites Elevated liver enzymes R74.8 Time Spent (min) 35 Comment 25 minutes spent with patient and additional 10 minutes spent reviewing his records
--- OUTSIDE RECORDS SUMMARY | 2024-03-11 01:53 | XMS_ITS ---
Author Organization [facility] Address [address] [place] [address] Care Team Providers Care Firer Locomotive Name Role Phone Balbir Schmid MD Primary Care Provider Chris Douglas Unavailable [phone] Allergies Allergen (clinical drug ingredient) Drug/Non Drug [...] Ordered Date Performed Result Body Sit e 27152-PJMDFVX NAIL, 6 OR MORE 02/02/2024 N/A 39195-YJLV SKIN LESIONS, OVER 4 02/02/2024 N/A Encounters Encounter Location Date Provider Diagnosis [facility] [place] [address] [place] [address] 02/02/2024 Chris Arambula Type 2 diabetes mellitus [...] INSTRUCTIONS.pdf) Pending Test Test Name Order Date 71985-VDMXMSJ NAIL, 6 OR MORE 02/02/2024 08623-JZRQ SKIN LESIONS, OVER 4 02/02/20 24 Next Appt Details Follow Up: prn, Reason: Provider Name:Chris Arambula , 05/10/2024 11:30:00 AM, [address] [facility], [address], [place], [address], Procedure Notes * Category Sub-Category Detail Notes Debride Nail 6-10 Nail debridement Performance o f this nail treatment by a nonprofessional would put this patients foot and overall health at risk. Therefore, nail debridement was performed extensively to reduce/remove overall nail length, girth, thickness, subungual debris, and necrotic tissue, by manual and/or electrical means through the use of a nail nipper and/or dremel-type convex grinder operator, to a more viable healthy nail plate or bed tissue 6-10. Silver nitrate used for any petechial bleeding as necessary. Definitive antifungal treatment options have been reviewed and discussed with the patient. The patient chooses, no pharmaceutical tx - 27842 Keratoma Treatment Parring or Cutting o f Benign Hyperkeratotic Lesion(s) (-57) More than 4 Lesions - The Benign hyperkeratotic lesions, as described above were pared, and/or cut utilizing a sterile 15 blade, tissue nippers, and/or dremel - 12138 Progress Notes * Laron ARNOLDDOB: [birth year] (68 yo M)Acc No.[id number]:02/02/2024 Progress Note Patient:?Laron Arnold Provider:?Chris Arambula DPM :1955???Age:68 Y???Sex:Male Gorge e:02/02/2024 Address:[address] [place], [place] [id number] Pcp:Balbir Schmid MD Subjective: * Chief Complaints: [...] ?no Exercise. ?Marital status: . 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 * Medications:?TakingAtorvasta tin Calcium Escitalopram Oxalate Folic [...] use of a nail nipper and/or dremel-type convex grinder operator, to a more viable healthy nail plate or bed tissue 6-10. Silver nitrate used for any petechial bleeding as necessary. Definitive antifungal treatment options have been reviewed and discussed with the patient. The patient chooses, no pharmaceutical tx - 44044.?Keratoma Treatment:?Parring or Cutting of Benign Hyperkeratotic Lesion(s)?(-57) More than 4 Lesions - The Benign hyperkeratotic lesions, as described above were pared, and/or cut utilizing a sterile 15 blade, tissue nippers, and/or dremel - 01322.? * Procedure Codes:?32942 DEBRI DE NAIL, 6 OR MORE, Modifiers: XS 87169 TRIM SKIN LESIONS, OVER 4, Modifiers: XS [...] Arambula DPM Date:?2023 Generated for Ulisses roberts/Junior/Shi on:?03/11/2024 01:53 AM EST History and Physical Notes * [...]
--- OUTSIDE RECORDS SUMMARY | 2024-03-11 01:53 | XMS_ITS ---
Author Organization [facility] Address [address] [place] [address] Care Team Providers Care Graphic Coordinator Name Role Phone Sharmaine WALLACE, Balbir Primary Care Provider Chris Douglas Unavailable [phone] Encounters Encounter Location Date Provider Diagnosis [address] [address] 09/25/2023 Chris Arambula Plan Of Treatment Next Appt Details Provider Name:Chris Arambula , 05/10/2024 11:30:00 AM, [address], [address], Progress Notes * Laron ARNOLDDOB: [birth year] (68 yo M)Acc No.[id number]:09/25/2023 Progress Note Patient:?Laron ARNOLD Provider:?Chris Arambula DPM :1955???Age:67 Y???Sex:Male Gorge e:09/25/2023 Address:[address] [place], [place] [id number] Pcp:Balbir Schmid MD Subjective: * Chief Complaints: [...]
--- OUTSIDE RECORDS SUMMARY | 2024-03-11 01:53 | XMS_ITS | Patient Health Record ---
Author Organization [facility] Address [address] [place] [address] Care Team Providers Care Landscape Architecture Professor Name Role Phone Balbir Schmid MD Primary Care Provider Chris Douglas Unavailable [phone] Allergies Allergen (clinical drug ingredient) Drug/Non Drug Allergy documented on EMR Reaction Allergy Type Onset Date Status niacin Niacin Unknown Drug Allergy Active Results Component Value Reference Range Notes HEMOGLOBIN A1C (GLYCOHEMOGLO BIN) Reviewed date:02/02/2024 11:28:01 AM Interpretation: Performing Lab: Notes/Report: TOTAL HEMOGLOBIN (HGBA1C) 7.2 HEMOGLOBIN A1C (GLYCOHEMOGLO BIN) Reviewed date:03/12/2023 09:53:36 AM Interpretation: Performing Lab: Notes/Report: HEMOGLOBIN A1C % (HH) 7.5 Reason For Referral No Information Medications Medication [...] Problem Acquired hammer toe of right foot (3905418696175333 ) Other hammer toe(s) (acquired), right foot (M20.41) Active confirmed Response to treatment, Improvemen t Problem Acquired hammer toe of left foot (1125321090491308 ) Other hammer toe(s) (acquired), left foot (M20.42) Active confirmed Response to treatment, Improvemen t Problem Polyneuropathy due to type 2 diabetes mellitus (586442426) Type 2 diabetes mellitus with diabetic polyneuropathy (E11.42) Active confirmed Vital Signs Height 5ft 11 in in 02/02/2024 Weight 210 lbs 02/02/2024 BMI 29.29 kg/m2 02/02/2024 Procedures Procedure Date Ordered Date Performed Result Body Sit e 08939-SLSKIFW NAIL, 6 OR MORE 03/12/2023 N/A 78839-DSOK SKIN LESIONS, OVER 4 03/12/2023 N/A 05637-HTZWPAX NAIL, 6 OR MORE 06/26/2023 N/A 76682-SMDQ SKIN LESIONS, OVER 4 06/26/2023 N/A 69102-ZHIRSLU NAIL, 6 OR MORE 11/03/2023 N/A 26283-RJFB SKIN LESIONS, OVER 4 11/03/2023 N/A 18837-CYEUJIU NAIL, 6 OR MORE 02/02/2024 N/A 58542-PFUJ SKIN LESIONS, OVER 4 02/02/2024 N/A Encounters Encounter Location Date Provider Diagnosis [facility] [address] [address] 03/12/2023 Chris Arambula Type 2 diabetes mellitus with diabetic polyneuropathy E11.42 ; Tinea unguium B35.1 ; Other hammer toe(s) (acquired), right foot M20.41 and Other hammer toe(s) (acquired), left foot M20.[address] [address] 06/26/2023 Chris Ralf Type 2 diabetes mellitus with diabetic polyneuropathy E11.42 ; Tinea unguium B35.1 ; Other hammer toe(s) (acquired), right foot M20.41 and Other hammer toe(s) (acquired), left foot M20.[address] [address] 11/03/2023 Chris Arambula Type 2 diabetes mellitus with diabetic polyneuropathy E11.42 and Tinea unguium B35.[address] [address] 02/02/2024 Chris Arambula Type 2 diabetes mellitus with diabetic polyneuropathy E11.42 ; Tinea unguium B35.1 ; Other hammer toe(s) (acquired), right foot M20.41 and Other hammer toe(s) (acquired), left foot M20.[address] [address] 03/12/[address] [address] 06/16/2023 [facility] [address] [address] 09/23/2023 Chris Arambula Assessments Encounter Date Diagnosis [...] Treatment Pending Test Test Name Order Date 49098-OXVIONF NAIL, 6 OR MORE 12/06/2021 82790-BCWGIFN NAIL, 6 OR MORE 02/27/2022 30556-UAMNBAP NAIL, 6 OR MORE 05/29/2022 59970-HHFYVEI NAIL, 6 OR MORE 08/28/2022 02793-RDQFKLZ NAIL, 6 OR MORE 12/04/2022 09791-TCOXWHH NAIL, 6 OR MORE 03/12/2023 69740-ZQDKGRK NAIL, 6 OR MORE 06/26/2023 74502-XWLMCDI NAIL, 6 OR MORE 11/03/2023 31510-MOQHSEK NAIL, 6 OR MORE 02/02/2024 99911-WOSJ SKIN LESIONS, OVER 4 02/02/20 24 60241-JSVC SKIN LESIONS, OVER 4 11/03/19 24 97807-ZWBP SKIN LESIONS, OVER 4 06/26/19 24 05330-JRSF SKIN LESIONS, OVER 4 03/12/20 23 97759-WNHQ SKIN LESIONS, OVER 4 12/05/19 23 21919-EEYM SKIN LESIONS, OVER 4 08/29/19 23 85454-DTGZ SKIN LESIONS, OVER 4 05/30/19 23 97011-YSON SKIN LESIONS, 2 TO 4 02/28/20 22 10917-DJVL SKIN LESIONS, 2 TO 4 12/07/19 22 Next Appt Details Provider Name:Chris Arambula , 05/10/2024 11:30:00 AM, [address] [facility], [address], [place], [address], Insurance Providers Payer Name Payer Address Payer Phone Subscriber Number Group Number Insured Name Patient Relationship to Insured Coverage Start Date Coverage End Date Medicare National Govt Svcs Inc [address] [place] [address] [id number] Laron Morrison Self - patient is the insured [employer] Blue Shield [address] [place] [address] [phone] [id number] Laron Morrison Self - patient is the insured Medical (General) History Medical History History ICD Code type II diabetes Polyneuropathy Alcohol abuse Anxiety Depression Hypertension Peripheral vascular disease Back,Hip,and Knee pain Chron's/ Colitis CAD Surgical History Surgery Date(Month/Year) cataract surgery
--- OUTSIDE RECORDS SUMMARY | 2024-03-11 01:53 | XMS_ITS ---
Author Organization [facility] Address [address] [place] [address] Care Team Providers Care Charging Machine Operator Name Role Phone Balbir Schmid MD Primary Care Provider Chris Douglas Unavailable [phone] Allergies Allergen (clinical drug ingredient) Drug/Non Drug [...] Ordered Date Performed Result Body Sit e 55849-NYYAZAL NAIL, 6 OR MORE 11/03/2023 N/A 90896-JWPK SKIN LESIONS, OVER 4 11/03/2023 N/A Encounters Encounter Location Date Provider Diagnosis [facility] [place] [address] [address] 11/03/2023 Chris Arambula Type 2 diabetes mellitus with diabetic polyneuropathy E11.42 and Tinea unguium B35.1 Assessments Encounter Date Diagnosis (ICD Code) Assessment Notes Treatment Notes Treatment Clinical Notes Section Notes 11/03/2023 Type 2 diabetes mellitus with diabetic polyneuropathy (ICD-10 - E11.42) 11/03/2023 Tinea unguium (ICD-10 - B35.1) Plan Of Treatment Pending Test Test Name Order Date 00739-RJCEUET NAIL, 6 OR MORE 11/03/2023 85383-CTBH SKIN LESIONS, OVER 4 11/03/19 24 Next Appt Details Follow Up: prn, Reason: Provider Name:Chris Arambula , 05/10/2024 11:30:00 AM, [address] [facility], [place] [address], [place], [address], Procedure Notes * Category Sub-Category Detail Notes [...] as necessary. Patient chooses, no pharmaceutical tx (16776) Keratoma Treatment Parring or Cutting o f Benign Hyperkeratotic Lesion(s) 94634 ( More than 4 Lesions ) - The Benign hyperkeratotic lesions, as described above were pared, and/or cut utilizing a sterile 15 blade, tissue nippers, and/or dremel Progress Notes * Kayla ARNOLD: [birth year] (67 yo M)Acc No.[id number]:11/03/2023 Progress Note Patient:?Laron Arnold Provider:?Chris Arambula DPM :1955???Age:67 Y???Sex:Male Gorge e:11/03/2023 Address:[address] [place] [address] [facility] [place]-[id number] Pcp:Balbir Schmid MD Subjective: * Chief Complaints: [...] ?no Exercise. ?Marital status: . 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 * Medications:?TakingAtorvasta tin Calcium Escitalopram Oxalate Folic [...] as necessary. Patient chooses, no pharmaceutical tx (16526).?Keratoma Treatment:?Parring or Cutting of Benign Hyperkeratotic Lesion(s)?04961 ( More than 4 Lesions ) - The Benign hyperkeratotic lesions, as described above were pared, and/or cut utilizing a sterile 15 blade, tissue nippers, and/or dremel.? * Procedure Codes:?51448 DEBRI DE NAIL, 6 OR MORE, Modifiers: XS 75974 TRIM SKIN LESIONS, OVER 4, Modifiers: XS [...]
== END 2024-03-10 12:52 | disposition home or self-care (01) ==
PROVIDERS: PCP Family Medicine; Visit Provider Nurse Practitioner Family
DX: F10.10 Alcohol abuse, uncomplicated (principal); K70.30 Alcoholic cirrhosis of liver without ascites; R74.8 Abnormal levels of other serum enzymes
CPT/HCPCS: 99214

== ENCOUNTER → 2024-03-10 11:47 | Outpatient (BNVA) | payer MEDICARE, SELFPAY | PROVIDERS: PCP Family Medicine; Visit Provider Nurse Practitioner Family | DX: K21.9 Gastro-esophageal reflux disease without esophagitis (principal); K70.30 Alcoholic cirrhosis of liver without ascites; K86.89 Other specified diseases of pancreas; K76.0 Fatty (change of) liver, not elsewhere classified; R74.8 Abnormal levels of other serum enzymes; R79.89 Other specified abnormal findings of blood chemistry; R74.01 Elevation of levels of liver transaminase levels; R19.7 Diarrhea, unspecified; E55.9 Vitamin D deficiency, unspecified; F10.10 Alcohol abuse, uncomplicated | CPT/HCPCS: 99212 ==

== ENCOUNTER 2024-03-26 09:19 | Outpatient (REF) | payer MEDICARE, SELFPAY ==
--- OUTSIDE RECORDS SUMMARY | 2024-03-26 09:38 | XMS_ITS ---
Author Organization [facility] Address [address] [place] [address] Care Team Providers Care Front Desk Officer Name Role Phone Balbir Schmid MD Primary Care Provider Chris Douglas Unavailable [phone] Allergies Allergen (clinical drug ingredient) Drug/Non Drug [...] Ordered Date Performed Result Body Sit e 31840-YHNFNDO NAIL, 6 OR MORE 11/03/2023 N/A 88434-ZMZA SKIN LESIONS, OVER 4 11/03/2023 N/A Encounters Encounter Location Date Provider Diagnosis [facility] [place] [address] [address] 11/03/2023 Chris Arambula Type 2 diabetes mellitus with diabetic polyneuropathy E11.42 and Tinea unguium B35.1 Assessments Encounter Date Diagnosis (ICD Code) Assessment Notes Treatment Notes Treatment Clinical Notes Section Notes 11/03/2023 Type 2 diabetes mellitus with diabetic polyneuropathy (ICD-10 - E11.42) 11/03/2023 Tinea unguium (ICD-10 - B35.1) Plan Of Treatment Pending Test Test Name Order Date 32696-FNILOUI NAIL, 6 OR MORE 11/03/2023 66557-XKBU SKIN LESIONS, OVER 4 11/03/19 24 Next Appt Details Follow Up: prn, Reason: Provider Name:Chris Arambula , 05/10/2024 11:30:00 AM, [address] [facility], [place] [address], [place], [address], Procedure Notes * Category Sub-Category Detail Notes [...] as necessary. Patient chooses, no pharmaceutical tx (98481) Keratoma Treatment Parring or Cutting o f Benign Hyperkeratotic Lesion(s) 70593 ( More than 4 Lesions ) - The Benign hyperkeratotic lesions, as described above were pared, and/or cut utilizing a sterile 15 blade, tissue nippers, and/or dremel Progress Notes * Kayla ARNOLD: [birth year] (67 yo M)Acc No.[id number]:11/03/2023 Progress Note Patient:?Laron Arnold Provider:?Chris Arambula DPM :1955???Age:67 Y???Sex:Male Gorge e:11/03/2023 Address:[address] [place] [address] [facility] [id number] Pcp:Balbir Schmid MD Subjective: * Chief Complaints: [...] ?no Exercise. ?Marital status: . 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 * Medications:?TakingAtorvasta tin Calcium Escitalopram Oxalate [...] as necessary. Patient chooses, no pharmaceutical tx (18022).?Keratoma Treatment:?Parring or Cutting of Benign Hyperkeratotic Lesion(s)?19364 ( More than 4 Lesions ) - The Benign hyperkeratotic lesions, as described above were pared, and/or cut utilizing a sterile 15 blade, tissue nippers, and/or dremel.? * Procedure Codes:?17767 DEBRI DE NAIL, 6 OR MORE, Modifiers: XS 26830 TRIM SKIN LESIONS, OVER 4, Modifiers: XS * Follow Up:?prn * Images: * Sign off status: Completed true * Provider:?Chris Arambula DPM Date:?2023 Generated for Ulisses roberts/Junior/Shi on:?03/26/2024 09:38 AM EST History and Physical Notes * [...]
--- OUTSIDE RECORDS SUMMARY | 2024-03-26 09:38 | XMS_ITS ---
Author Organization [facility] Address [address] [place] [address] Care Team Providers Care Steam Table Attendant Name Role Phone Balbir Schmid MD Primary Care Provider Chris Douglas Unavailable [phone] Allergies Allergen (clinical drug ingredient) Drug/Non Drug [...] Ordered Date Performed Result Body Sit e 88646-BUOJXCU NAIL, 6 OR MORE 02/02/2024 N/A 08301-WYZU SKIN LESIONS, OVER 4 02/02/2024 N/A Encounters Encounter Location Date Provider Diagnosis [facility] [place] [address] [place] [address] 02/02/2024 Chris Arambula Type 2 diabetes mellitus [...] INSTRUCTIONS.pdf) Pending Test Test Name Order Date 86387-IGADBKH NAIL, 6 OR MORE 02/02/2024 91169-KBNX SKIN LESIONS, OVER 4 02/02/20 24 Next Appt Details Follow Up: prn, Reason: Provider Name:Chris Arambula , 05/10/2024 11:30:00 AM, [address] [facility], [address], [place], [address], Procedure Notes * Category Sub-Category Detail Notes Debride Nail 6-10 Nail debridement Performance o f this nail treatment by a nonprofessional would put this patients foot and overall health at risk. Therefore, nail debridement was performed extensively to reduce/remove overall nail length, girth, thickness, subungual debris, and necrotic tissue, by manual and/or electrical means through the use of a nail nipper and/or dremel-type diamond grinder, to a more viable healthy nail plate or bed tissue 6-10. Silver nitrate used for any petechial bleeding as necessary. Definitive antifungal treatment options have been reviewed and discussed with the patient. The patient chooses, no pharmaceutical tx - 60192 Keratoma Treatment Parring or Cutting o f Benign Hyperkeratotic Lesion(s) (-57) More than 4 Lesions - The Benign hyperkeratotic lesions, as described above were pared, and/or cut utilizing a sterile 15 blade, tissue nippers, and/or dremel - 32078 Progress Notes * Laron ARNOLDDOB: [birth year] (68 yo M)Acc No.[id number]:02/02/2024 Progress Note Patient:?Laron Arnold Provider:?Chris Arambula DPM :1955???Age:68 Y???Sex:Male Gorge e:02/02/2024 Address:[address] [place], [place] [address] Pcp:Balbir Schmid MD Subjective: * Chief Complaints: [...] ?no Exercise. ?Marital status: . 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 * Medications:?TakingAtorvasta tin Calcium Escitalopram Oxalate Folic [...] use of a nail nipper and/or dremel-type diamond grinder, to a more viable healthy nail plate or bed tissue 6-10. Silver nitrate used for any petechial bleeding as necessary. Definitive antifungal treatment options have been reviewed and discussed with the patient. The patient chooses, no pharmaceutical tx - 70911.?Keratoma Treatment:?Parring or Cutting of Benign Hyperkeratotic Lesion(s)?(-57) More than 4 Lesions - The Benign hyperkeratotic lesions, as described above were pared, and/or cut utilizing a sterile 15 blade, tissue nippers, and/or dremel - 26893.? * Procedure Codes:?50164 DEBRI DE NAIL, 6 OR MORE, Modifiers: XS 81070 TRIM SKIN LESIONS, OVER 4, Modifiers: XS [...] Eye Exam:: no retin opathy Vascular DP PULSES (B): 1/4, LEFT, 2/4, RIGHT PT PULSES (B): 0/4, B/L CAPILLARY FILL TIME: 3-4 secs. per digit , B/L TEMPERTURE GRADIENT (C): decreased, cool to cool, proximal to distal, B/L TROPHIC CONDITION-TEXTURE/ELASTICITY/TURGOR/HAIR GROWTH (B): decreased, with sparse to absent hair gr owth, B/L EDEMA (C): 2/4, non-pitting, wi thout aching pain, B/L, Leg(s) PIGMENTATION: brawny, B/L Nails NAILS are: Elongated, overg rown, dystrophic, lytic, greater than 3mm thick, discolored and friable with crumbly malodorous subungual debris, 1-5 B/L
--- OUTSIDE RECORDS SUMMARY | 2024-03-26 09:38 | XMS_ITS | Patient Health Record ---
Author Organization [facility] Address [address] [place] [address] Care Team Providers Care Occupational Therapy Professor Name Role Phone Balbir Schmid MD Primary Care Provider Chris Douglas Unavailable [phone] Allergies Allergen (clinical drug ingredient) Drug/Non Drug [...] Problem Acquired hammer toe of right foot (8052409143776110 ) Other hammer toe(s) (acquired), right foot (M20.41) Active confirmed Response to treatment, Improvemen t Problem Acquired hammer toe of left foot (4493528863299817 ) Other hammer toe(s) (acquired), left foot (M20.42) Active confirmed Response to treatment, Improvemen t Problem Polyneuropathy due to type 2 diabetes mellitus (558721230) Type 2 diabetes mellitus with diabetic polyneuropathy (E11.42) Active confirmed Vital Signs Height 5ft 11 in in 02/02/2024 Weight 210 lbs 02/02/2024 BMI 29.29 kg/m2 02/02/2024 Procedures Procedure Date Ordered Date Performed Result Body Sit e 78971-KUMLRIH NAIL, 6 OR MORE 06/26/2023 N/A 83627-ZQCQ SKIN LESIONS, OVER 4 06/26/2023 N/A 20359-FXZSPKE NAIL, 6 OR MORE 11/03/2023 N/A 33483-OVUJ SKIN LESIONS, OVER 4 11/03/2023 N/A 28332-IVQTHPB NAIL, 6 OR MORE 02/02/2024 N/A 55458-LSVX SKIN LESIONS, OVER 4 02/02/2024 N/A Encounters Encounter Location Date Provider Diagnosis [address] [address] 06/26/2023 Chris Arambula Type 2 diabetes mellitus with diabetic polyneuropathy E11.42 ; Tinea unguium B35.1 ; Other hammer toe(s) (acquired), right foot M20.41 and Other hammer toe(s) (acquired), left foot M20.[address] [address] 11/03/2023 Chris Arambula Type 2 diabetes mellitus with diabetic polyneuropathy E11.42 and Tinea unguium B35.[address] [address] 02/02/2024 Chris Arambula Type 2 diabetes mellitus with diabetic polyneuropathy E11.42 ; Tinea unguium B35.1 ; Other hammer toe(s) (acquired), right foot M20.41 and Other hammer toe(s) (acquired), left foot M20.42 [facility] [place] [address] [place] [address] 06/16/2023 [facility] [address] [place] [address] 09/23/2023 Chris Arambula Assessments Encounter Date Diagnosis (ICD Code) Assessment Notes Treatment Notes Treatment Clinical Notes Section Notes 06/26/2023 Type 2 diabetes mellitus with diabetic [...] (ICD-10 - M20.41) Response to treatment,Impro vement 06/26/2023 Other hammer toe(s) (acquired), left foot (ICD-10 - M20.42) Response to treatment,Impro vement 02/02/2024 Other hammer toe(s) (acquired), left foot (ICD-10 - M20.42) Plan Of Treatment Pending Test Test Name Order Date 44813-PGWZYMP NAIL, 6 OR MORE 12/06/2021 72026-CAVKUQM NAIL, 6 OR MORE 02/27/2022 73092-NNYLTHS NAIL, 6 OR MORE 05/29/2022 92558-EAKEWKB NAIL, 6 OR MORE 08/28/2022 99013-TMPNGTC NAIL, 6 OR MORE 12/04/2022 07754-MSMMLHE NAIL, 6 OR MORE 03/12/2023 85702-VXJZXHZ NAIL, 6 OR MORE 06/26/2023 45504-QNQVWNS NAIL, 6 OR MORE 11/03/2023 78592-LJKJUEF NAIL, 6 OR MORE 02/02/2024 23634-ROAZ SKIN LESIONS, OVER 4 02/02/20 24 42355-YRTG SKIN LESIONS, OVER 4 11/03/19 24 86345-ZSXO SKIN LESIONS, OVER 4 06/26/19 24 42848-EQIN SKIN LESIONS, OVER 4 03/12/20 23 36449-DBUP SKIN LESIONS, OVER 4 12/05/19 79612-YCAH SKIN LESIONS, OVER 4 08/29/19 23 77654-AJZX SKIN LESIONS, OVER 4 05/30/19 87761-PVDU SKIN LESIONS, 2 TO 4 02/28/20 13305-EXNH SKIN LESIONS, 2 TO 4 12/07/19 Next Appt Details Provider Name:Chris Yumiko Arambula , 05/10/2024 11:30:00 AM, [address] [facility] [address], [place], [address], Insurance Providers Payer Name Payer Address Payer Phone Subscriber Number Group Number Insured Name Patient Relationship to Insured Coverage Start Date Coverage End Date Medicare National Govt Svcs Inc [address] [place] [address] [id number] Laron Morrison Self - patient is the insured Med [employer] [facility] [address] [place] [address] [phone] [id number] Laron Morrison Self - patient is the insured Medical (General) History Medical History History ICD Code type II diabetes Polyneuropathy Alcohol abuse Anxiety Depression Hypertension Peripheral vascular disease Back,Hip,and Knee pain Chron's/ Colitis CAD Surgical History Surgery Date(Month/Year) cataract surgery
--- OUTSIDE RECORDS SUMMARY | 2024-03-26 09:38 | XMS_ITS ---
Author Organization [facility] Address [address] [place] [address] Care Team Providers Care Search Planner Name Role Phone Sharmaine WALLACE, Balbir Primary Care Provider Chris Douglas Unavailable [phone] Encounters Encounter Location Date Provider Diagnosis [address] [address] 09/25/2023 Chris Arambula Plan Of Treatment Next Appt Details Provider Name:Chris Arambula , 05/10/2024 11:30:00 AM, [address], [address], Progress Notes * Laron ARNOLDDOB: [birth year] (68 yo M)Acc No.[id number]:09/25/2023 Progress Note Patient:?Laron ARNOLD Provider:?Chris Arambula DPM :1955???Age:67 Y???Sex:Male Gorge e:09/25/2023 Address:[address] [place], [place] [id number] Pcp:Balbir Schmid MD Subjective: * Chief Complaints: [...]
== END 2024-03-26 09:20 | disposition home or self-care (01) ==
LOC: HO.US 09:19
PROVIDERS: PCP Family Medicine; Visit Provider Nurse Practitioner Family
DX: K76.0 Fatty (change of) liver, not elsewhere classified (principal)
CPT/HCPCS: 76705; 76981

== ENCOUNTER → 2024-03-26 09:21 | Outpatient (BNV) | payer MEDICARE, SELFPAY | PROVIDERS: PCP Family Medicine; Visit Provider Radiology Diagnostic Radiology | DX: K76.0 Fatty (change of) liver, not elsewhere classified (principal) | CPT/HCPCS: 76981 ==

== ENCOUNTER 2024-05-03 10:37 | Outpatient (AMB) | payer MEDICARE, SELFPAY ==
--- NOTE | 2024-05-03 10:44 | A.OFFPC_ITS ---
Vital Signs 05/03/24 10:49 Height 5 ft 11 in Weight 214 lb BMI 29.8 BP 138/66 Blood Pressure Location Rt brachial Position Sitting Pulse 95 Pulse Source Pulse Oximeter Pulse Oximetry (%) 96 Oxygen Delivery Method Room Air Intake Visit Reasons: f/u diabetes, hypertension Intake Note: Follow up htn and diabetes Inspector Coated Fabrics Required: No Allergies niacin [NIACIN] Adverse Reaction (Mild, Verified 05/03/24 10:46) RED FLUSH, SHAKING Medication List - Last Reconciled 05/03/24 by Balbir Schmid MD alpha lipoic acid 600 mg (6 x 100 mg) PO DAILY amlodipine 5 mg PO DAILY 30 days atorvastatin 1 tab PO DAILY cholecalciferol (vitamin D3) 50 mcg PO DAILY dulaglutide 3 mg (0.5 mL) subcut QWEEK 28 days folic acid 1 mg PO DAILY 90 days glipizide ER 2.5 mg PO DAILY 30 days hydrochlorothiazide 12.5 mg PO DAILY lisinopril 40 mg PO DAILY 30 days magnesium oxide 800 mg (2 x 400 mg (241.3 mg magnesium)) PO DAILY pyridoxine (vitamin B6) 50 mg PO DAILY vitamin B complex (vitamins B1 B6 B12) . Tobacco use date assessed: 05/09/23 Dental Screening Dental Screen Date: 02/07/23 HPI f/u diabetes, hypertension HPI Details 68 y/o male presents to f/u DM, HTN. A1c today 05/03/24 is 6.1%, improved from prior. Blood pressure today is 138/66. He is on amlodipine 5mg, HCTZ 12.5mg, lisinopril 40mg daily. [facility] Medical History Bleeding hemorrhoids Transaminitis Hemorrhoids without complication History of alcohol abuse Diabetes type 2, uncontrolled PVD (peripheral vascular disease) Diabetic polyneuropathy associated with type 2 diabetes mellitus Diabetes type 2, controlled Alcohol abuse Hypertension Neuropathy Diabetes Depression Anxiety Surgical History H/O colonoscopy Family History Mother No problems noted. Father No problems noted. Social History Household Members: Family Housing: House Do you presently have visiting nurse or other home services: No Alcohol intake: former Patient Tobacco Use Status: Current everyday Tobacco user Tobacco use type: Cigarette Cigarettes Per Day: 4 Years Smoked: 50 Packs per year/per ci.00 e-Cigarette/Vaping Use: Never Used Second Hand Smoke Exposure: Yes service: No Current occupational status: retired Current occupational exposures/hazards: No Cognitive needs: Yes (cane) Hearing needs: No Vision needs: Yes (reading glasses) Questionnaire PHQ-9 Over the last 2 weeks, how often have you been bothered by any of the following problems? 1. Little interest or pleasure in doing things: not at all 2. Feeling down, depressed, or hopeless: not at all 3. Trouble falling or staying asleep, or sleeping too much: nearly every day 4. Feeling tired or having little energy: more than half the days 5. Poor appetite or overeating: not at all 6. Feeling bad about yourself - or that you are a failure or have let yourself or your family down: not at all 7. Trouble concentrating on things, such as reading the newspaper or watching television: not at all 8. Moving or speaking so slowly that other people could have noticed. Or the opposite - being so fidgety or restless that you have been moving around a lot more than usual: not at all 9. Thoughts that you would be better off or of hurting yourself in some way: not at all Total score: 5 Depression Screening Interpretation: Positive Depression Screening Done: Yes 52194 - PHQ-9 Billing: Yes Source: Developed by Drs. Jeff Thibodeaux, Leda Gould, Chacorta Glass and colleagues, with an educational channing from [employer]. Thrive Questionnaire Date Thrive assessed: 05/03/24 DELORES-7 AMB Questionnaire DELORES-7 Date DELORES - 7 assessed: 05/09/23 Source: Developed by Drs. Jeff Thibodeaux, Leda Gould, Chacorta Glass and colleagues, with an educational channing from [employer]. Review of Systems Const Denies chills, Denies fatigue, Denies fever(s), Denies headache(s) and Denies weakness ENT Denies dizziness and Denies headache(s) Card Denies chest pain, Denies lightheadedness, Denies dyspnea and Denies other (Palpitations) Resp Denies cough, Denies dyspnea, Denies wheezing and Denies other ( shortness of breath) Musc Denies numbness and Denies tingling Neuro Denies dizziness, Denies headache(s), Denies numbness, Denies tingling, Denies paresthesias and Denies weakness Psych Denies anxiety and Denies depression Endo Denies fatigue Aller/Immun Denies wheezing Physical exam (Primary Care) Vital Signs: Last Vital Signs Pulse 95 05/03/24 10:49 BP 138/66 05/03/24 10:49 Pulse Ox 96 05/03/24 10:49 Oxygen Delivery Method Room Air 05/03/24 10:49 BMI result Body Mass Index 29.8 Tobacco/Smoking Status: Tobacco use Status Tobacco use date assessed 05/09/23 05/03/24 10:47 Patient Tobacco Use Status Current everyday Tobacco 05/03/24 10:47 Tobacco use type Cigarette 05/03/24 10:47 e-Cigarette/Vaping Use Never Used 05/03/24 10:47 Depression Screening Interpretation: Positive Thrive Assessment: Date of Thrive Assessment Date Thrive assessed 05/03/24 05/03/24 10:47 Const General: no acute distress and well developed Nutritional Appearance: well nourished Orientation/consciousness: patient oriented x3 HENMT Head: Yes normocephalic and Yes atraumatic Eyes General: appearance normal, both eyes and all related structures Pupils: Equal, round and reactive pupils present EOM: EOMs intact bilaterally Resp Effort & Inspection: normal respiratory effort Auscultation: clear to auscultation bilaterally Cardio Rate: regular rate Rhythm: regular rhythm Heart sounds: S1 normal heart sound present, S2 normal heart sound present, no gallops, no murmurs and no rubs Neuro General: patient oriented x3 and gait normal Cranial nerves: Yes Equal, round and reactive pupils present Psych Affect: normal affect Results AMB Hemoglobin A1c AMB Hemoglobin A1c 6.1 % Last Edit by Ivy Lopez CMA on 05/03/24 11:10 Coding Level of Care Code Est Pt Level 3 (66587) Diagnoses Diabetes type 2, controlled E11.9 Essential hypertension I10 Additional Codes PHQ-9 - 27627 - PHQ-9 Billing: Yes ([id number]) Assessment & Plan Assessment & Plan (1) Diabetes type 2, controlled: Code(s): E11.9 - Type 2 diabetes mellitus without complications Category: Medical Plan: A1c?today?6.1%.??Good?control.??Goal?is?less?than?7.0% Continue?current?medications Continue?to?work?at?a?diet?lower?in?sugars?and?starches Work?at?weight?loss Patient?had?diabetic?eye?exam?in?November?which?showed?no?d iabetic?retinopathy.??Up-to-date (2) Essential hypertension: Code(s): I10 - Essential (primary) hypertension Category: Medical Plan: Blood?pressure?is?controlled.??Goal?is?less?than?140/90 Continue?current?medication?regimen Encouraged?diet?lower?in?salt/sodium.??Encouraged?exercise?and?weight?loss Orders: Orders AMB Hemoglobin A1c Today E11.9 - Type 2 diabetes mellitus without complications
[2024-05-03 10:49] VITALS: BP 138/66; PULSE 95; O2SAT 96; BMI 29.8
--- OUTSIDE RECORDS SUMMARY | 2024-05-03 11:28 | XMS_ITS | Clinical Summary ---
Author Organization [facility] Facility Address [address] [place] [id number] Care Team Providers Care Men'S Golf Coach Name Role Phone Unavailable Primary Care Provider Unavailabl e Social History Tobacco Use Types Packs/Day Years Used Date Smoking Tobacco: Never Assessed Sex and Gender Information Value Date Recorded Sex Assigned at Not on file Legal Sex Male 12:54 PM EDT Gender Identity Not on file Sexual Orientation Not on file Plan of Treatment Health Maintenance Due Date Last Done Comments Colorectal Cancer Screening: Annual FOBT 2006 Colorectal Cancer Screening: Colonoscopy 2006 Colorectal Cancer Screening: Sigmoidoscopy 2006 Pneumococcal Vaccine: 65+ Ye ars (1 of 1 - PCV) 2022 Influenza Vaccine (#1) 2023 Hepatitis B Vaccine Aged Out No longe r eligible based on patient's age to complete this topic Insurance [facility]
== END 2024-05-03 11:12 | disposition home or self-care (01) ==
PROVIDERS: PCP Family Medicine; Visit Provider Family Medicine
DX: E11.9 Type 2 diabetes mellitus without complications (principal); I10 Essential (primary) hypertension

== ENCOUNTER → 2024-05-03 10:37 | Outpatient (BNVA) | payer MEDICARE, SELFPAY | PROVIDERS: PCP Family Medicine; Visit Provider Family Medicine | DX: E11.9 Type 2 diabetes mellitus without complications (principal); I10 Essential (primary) hypertension | CPT/HCPCS: 83036; 96127; 99212 ==

== ENCOUNTER 2024-06-18 13:21 | Outpatient (REF) | payer MEDICARE, SELFPAY ==
[2024-06-18 14:52] LABS: PSA,Total (Free>4and<10) 4.65 ng/mL (0.00-4.00)
[2024-06-21 11:07] LABS: Free Prostate Spec Ag 0.9 ng/mL; Percent Free Prostate Spec Ag 19 % (calc) (>25); Prostate Specific Ag Total 4.7 ng/mL (< OR = 4.0)
== END 2024-06-18 13:22 | disposition home or self-care (01) ==
LOC: HO.LAB 13:21
PROVIDERS: PCP Family Medicine; Visit Provider Urology
DX: R97.20 Elevated prostate specific antigen [PSA] (principal); Z12.5 Encounter for screening for malignant neoplasm of prostate
CPT/HCPCS: 36415; 84153; 84154

== ENCOUNTER 2024-07-14 12:41 | Outpatient (AMB) | payer MEDICARE, SELFPAY ==
--- NOTE | 2024-07-14 13:09 | MHC.OFFVIS ---
Intake Visit Reasons: 3m PSA Intake Note: Patient is present for 3M/PSA Urology Medication:VITAMIN B1,VITAMIN B6 Antibiotic Allergy:NIACIN Blood Thinner:NONE Multiple Drum Sander Required: No Allergies niacin [NIACIN] Adverse Reaction (Mild, Verified 07/14/24 13:15) RED FLUSH, SHAKING HPI Comments Details: Laron is a pleasant male. He is a patient of Dr. Schmid. He is seen for the following urologic conditions - balanitis - elevated PSA - bladder outlet obstruction Four month follow-up repeat PSA PCPT calculator - 7% high-grade risk LIZZIE 1+ prostate firmness right side Abdominal ultrasound with bladder wall thickening Start finasteride, six-month follow-up PSA and bladder ultrasound Elevated PSA PSA 09/20 3.0, 12/22 4.2, 06/22 19% Balanitis Prior episode Resolved after better diabetic control Is on Trulicity with current HbA1c 5.4 down from over 6.5 proximally 12 months ago Lower urinary tract symptoms Progressive weakness of stream Enlarged prostate PFSH Medical History Bleeding hemorrhoids Transaminitis Hemorrhoids without complication History of alcohol abuse Diabetes type 2, uncontrolled PVD (peripheral vascular disease) Diabetic polyneuropathy associated with type 2 diabetes mellitus Diabetes type 2, controlled Alcohol abuse Hypertension Neuropathy Diabetes Depression Anxiety Surgical History H/O colonoscopy Family History Mother No problems noted. Father No problems noted. Social History Household Members: Family Housing: House Do you presently have visiting nurse or other home services: No Alcohol intake: former Patient Tobacco Use Status: Current everyday Tobacco user Tobacco use type: Cigarette Cigarettes Per Day: 4 Years Smoked: 50 e-Cigarette/Vaping Use: Never Used Second Hand Smoke Exposure: Yes service: No Current occupational status: retired Current occupational exposures/hazards: No Cognitive needs: Yes (cane) Hearing needs: No Vision needs: Yes (reading glasses) Review of Systems Const Denies chills and Denies fever(s) Card Reports no additional complaints and Denies syncope Resp Denies cough GI Denies abdominal pain and Denies heartburn Reports as per HPI and Denies change in libido Neuro Denies syncope Psych Denies change in libido Endo Denies change in libido Physical Exam Const General: cooperative, healthy appearing, comfortable and no acute distress Orientation/consciousness: patient oriented x3 HEENT Face and sinus: Yes normal facial exam Mouth: moist mucous membranes Neck Neck: Yes normal visual inspection, Yes full ROM and Yes trachea midline Chest Chest palpation & inspection: normal inspection of the chest Resp Effort & Inspection: normal respiratory effort, able to speak in complete sentences and no respiratory distress GI Inspection: Yes normal to inspection Back/Spine/Pelvis Cervical Spine: normal cervical lordosis Thoracic/Lumbar Spine: thoracic and lumbar spine normal to inspection Skin General skin exam: no rashes or lesions noted Neuro General: patient oriented x3, gait normal, tone normal and moves all extremities Extrem General: Yes normal to inspection and Yes capillary refill normal Assessment & Plan Assessment & Plan (1) Elevated PSA: Code(s): R97.20 - Elevated prostate specific antigen [PSA] Category: Medical (2) Bladder outlet obstruction: Code(s): N32.0 - Bladder-neck obstruction Category: Medical Plan Six-month follow-up PSA and PVR Orders: Orders PSA,Total (Free>4and<10) 6 Months R97.20 - Elevated prostate specific antigen [PSA] US bladder Today R97.20 - Elevated prostate specific antigen [PSA] Medications: New finasteride 5 mg PO DAILY 90 days 90 tabs 1RF R97.20 - Elevated prostate specific antigen [PSA] Patient Instructions: This note is constructed using voice recognition software. While every effort has been made to ensure accuracy application development consultant errors may have been included. Imaging studies, laboratory and physical exam results were discussed and reviewed in detail. No major barriers to patient understanding were identified. An opportunity to ask questions regarding the treatment plan was provided. All questions were answered. The patient expressed understanding and agreement with the above treatment plan. The patient is aware they should contact our office by phone for worsening of their current condition or the appearance of new urologic symptoms. Compliance is encouraged with any medications and followup testing that is ordered. It is a privilege to participate in the urologic care of your patient. If you have any questions or concerns regarding treatment for the above conditions, or other urologic issues, please do not hesitate to contact me. The office telephone contact is [phone]. Sincerely, Dr Harley Trujillo MD, [facility] - Urology Compassionate Specialist Care for the Genitourinary System Coding Level of Care Code Est Pt Level 4 (32369) Complex EM visit Add On G2211 Diagnoses Elevated PSA R97.20 Bladder outlet obstruction N32.0
--- OUTSIDE RECORDS SUMMARY | 2024-07-14 15:02 | XMS_ITS ---
Author [facility] Address [address] [place] [address] Care Team Providers Care Chorus Dancer Name Role Phone Balbir Schmid MD Primary Care Provider Chris Douglas Unavailable [phone] Allergies Allergen (clinical drug ingredient) Drug/Non Drug [...] Ordered Date Performed Result Body Sit e 31893-[id number] NAIL, 6 OR MORE 11/03/2023 N/A 59387-IUOK SKIN LESIONS, OVER 4 11/03/2023 N/A Encounters Encounter Location Date Provider Diagnosis [facility] [address] [address] 11/03/2023 Chris Arambula Type 2 diabetes mellitus with diabetic polyneuropathy E11.42 and Tinea unguium B35.1 Assessments Encounter Date Diagnosis (ICD Code) Assessment Notes Treatment Notes Treatment Clinical Notes Section Notes 11/03/2023 Type 2 diabetes mellitus with diabetic polyneuropathy (ICD-10 - E11.42) 11/03/2023 Tinea unguium (ICD-10 - B35.1) Plan Of Treatment Pending Test Test Name Order Date [id number] NAIL, 6 OR MORE 11/03/2023 [id number]-[id number] SKIN LESIONS, OVER 4 11/03/19 24 Next Appt Details Follow Up: prn, Reason: Provider Name:Chris Arambula , 08/09/2024 11:15:00 AM, [address] [facility], [place] [address], [place], [address], Procedure Notes * Category Sub-Category Detail Notes [...] as necessary. Patient chooses, no pharmaceutical tx (86635) Keratoma Treatment Parring or Cutting o f Benign Hyperkeratotic Lesion(s) 90028 ( More than 4 Lesions ) - The Benign hyperkeratotic lesions, as described above were pared, and/or cut utilizing a sterile 15 blade, tissue nippers, and/or dremel Progress Notes * Kayla ARNOLD: [birth year] (67 yo M)Acc No.[id number]:11/03/2023 Progress Note Patient:?Laron Arnold Provider:?Chris Arambula DPM :[id number]???Age:67 Y???Sex:Male Gorge e:11/03/2023 Address:[address] [place] [address] [facility] [id number] Pcp:Balbir Schmid MD Subjective: * Chief Complaints: [...] ?no Exercise. ?Marital status: . ?Occupation: retired, [employer]. * Medications:?TakingAtorvasta tin Calcium Escitalopram Oxalate Folic [...] as necessary. Patient chooses, no pharmaceutical tx (25269).?Keratoma Treatment:?Parring or Cutting of Benign Hyperkeratotic Lesion(s)?29950 ( More than 4 Lesions ) - The Benign hyperkeratotic lesions, as described above were pared, and/or cut utilizing a sterile 15 blade, tissue nippers, and/or dremel.? * Procedure Codes:?55877 DEBRI DE NAIL, 6 OR MORE, Modifiers: XS 37786 TRIM SKIN LESIONS, OVER 4, Modifiers: XS * Follow Up:?prn * Images: * Sign off status: Completed true * Provider:?Chris Arambula DPM Date:?2023 Generated for Ulisses roberts/Junior/Shi on:?07/14/2024 03:02 PM EDT History and Physical Notes * HPI (History [...]
--- OUTSIDE RECORDS SUMMARY | 2024-07-14 15:02 | XMS_ITS ---
[facility] Address [address] [place] [address] Care Team Providers Care Learning Facilitator Name Role Phone Balbir Schmid MD Primary Care Provider Chris Douglas Unavailable [phone] Allergies Allergen (clinical drug ingredient) Drug/Non Drug Allergy documented on EMR Reaction Allergy Type Onset Date Status niacin Niacin Unknown Drug Allergy Active REASON FOR VISIT At Risk Footcare, Toe Irritation Medications Medication SIG (Take, Route, Frequency, Duration) Notes Start Date End Date Status Vitamin B1 Active Extra Depth Orthopedic Shoes (1 Pair) with Customized Heat Molded Multidensity Innersoles (3 Pair) as directed Dx: NIDDM/Polyneuropathy (E11.42), Hammertoe Foot Deformity (M20.41,M20.42), Preulcerative Skin Lesion(s) (L85.1 Active Synjardy Not-Taking Ciclopirox Olamine 0.77 % 1 application to affected area Externally to feet Twice a day for 30 days Not-Taking Gabapentin Not-Takin g Trulicity Active Magnesium Oxide Acti ve Phospha 250 Neutral Active Folic Acid Active Lansoprazole Active Atorvastatin Calcium Active Escitalopram Oxalate Active Social History Tobacco Use: Social History Observation Description Date Details (start date - stop date) Never Smoker NA - NA Alcohol Screen Question Answer Notes Did you have a drink containing alcohol in the p ast year? Yes Points 0 Interpretation Negative Tobacco use other than smoking: Question Answer Notes Are you an other tobacco user? No Tobacco Control (Standard) Question Answer Notes Tobacco use: Nonsmoker Additional Findings: Tobacco non-user Current no nsmoker Vital Signs Height 5ft 11in in 05/10/2024 Weight 210 lbs 05/10/2024 BMI 29.29 kg/m2 05/10/2024 Blood pressure systolic 128 mm Hg 05/10/19 25 Blood pressure diastolic 70 mm Hg 025 Procedures Procedure Date Ordered Date Performed Result Body Sit e 75390-RGQKHTH NAIL, 6 OR MORE 05/10/2024 N/A 87843-JSMC SKIN LESIONS, OVER 4 05/10/2024 N/A Encounters Encounter Location Date Provider Diagnosis [facility] [place] [address] [facility] [address] [place] [address] 05/10/2024 Chris Arambula Type 2 diabetes mellitus with diabetic polyneuropathy E11.42 ; Tinea unguium B35.1 ; Other hammer toe(s) (acquired), right foot M20.41 and Other hammer toe(s) (acquired), left foot M20.42 Assessments Encounter Date Diagnosis (ICD Code) Assessment Notes Treatment Notes Treatment Clinical Notes Section Notes 05/10/2024 Type 2 diabetes mellitus with diabetic polyneuropathy (ICD-10 - E11.42) 05/10/2024 Tinea unguium (ICD-10 - B35.1) 05/10/2024 Other hammer toe(s) (acquired), right foot (ICD-10 - M20.41) Response to treatment,Impro vement 05/10/2024 Other hammer toe(s) (acquired), left foot (ICD-10 - M20.42) Response to treatment,Impro vement Plan Of Treatment Pending Test Test Name Order Date [id number] NAIL, 6 OR MORE 05/10/2024 23011-ZUIU SKIN LESIONS, OVER 4 05/10/19 25 Next Appt Details Follow Up: prn, Reason: Provider Name:Chris Moncadaunier , 08/09/2024 11:15:00 AM, [address] [facility], [address] [facility], [place], [address], Procedure Notes * Category Sub-Category Detail Notes Debride Nail 6-10 Nail debridement Due to the cl inical pathology outlined in the exam findings, performance of this nail treatment is medically necessary as its management by an unskilled/untrained nonprofessional would put this patients foot and overall health at risk. Therefore, debridement to affected nail(s), as described in exam ( TA, T1, T2, T3, T4, T5, T6, T7, T8, T9 ), was performed exclusively by the physician of record to reduce/remove overall nail length, girth, thickness, subungual debris, and necrotic tissue, by manual and/or electrical means through the use of a nail nipper and/or dremel-type scissors grinder, to a more viable healthy nail plate or bed tissue 6-10 nails in total. Silver nitrate was used for any petechial bleeding as necessary. Definitive antifungal treatment options, both pharmaceutical and surgical, have been reviewed and discussed with the patient. The patient solely prefers the use of intermittent/as needed professional debridement services for their nail condition and understands the need for additional periodic treatments to maintain effectiveness in symptomatic relief - 70354 Keratoma Treatment Parring or Cutting o f Benign Hyperkeratotic Lesion(s) (-57) More than 4 Lesions - Due to the at risk nature of the patients medical condition as documented in the exam findings, performance of this keratoderma treatment is medically necessary as its management by an unskilled/untrained nonprofessional would put this patients foot and overall health at risk. Therefore, the benign hyperkeratotic lesions, ( 6 ) in total, locations as stated and described in the exam ( SUB MTH (s), 1, B/L , SUB MTH (s), 5, B/L ,Plantar, Heel(s), B/L ), were pared, and/or cut utilizing a sterile 15 blade, tissue nippers, and/or power dremel instrumentation by the physician of record - 78754 Progress Notes * Laron ARNOLDDOB: [birth year] (68 yo M)Acc No.[id number]:05/10/2024 Progress Note Patient:?Laron ARNOLD Provider:?Chris Arambula DPM :1955???Age:68 Y???Sex:Male Gorge e:05/10/2024 Address:[address] [place], [place] [id number] Pcp:Balbir Schmid MD Subjective: * Chief Complaints: * ???At Risk FootcareToe Irrit ation * HPI: ???At Risk footcare:?Pt States Last PCP Visit:?Date?01/19/2024 ???Toe pain:?Treatments:?Rx shoes .? * ROS:?General/Constitutional:?Nausea?denies.?Vomiting?denies.?Hunger Thirst?denies.?Loss appetite?denies.?Chills?denies.?Fatigue?denies.?Fever?denies.?Night Sweats?denies.?Unexplained weight loss?denies.?Unexplained weight gain?denies.?HEENTM:?Dentures?denies.?Dizziness?denies.?Glasses/contacts?denies.?Retinopathy?den ies.?Blurred/double vision?denies.?TMJ?denies.?Discharge/drainage?denies.?Implants?denies.?Sore throat?denies.?Dental implants?denies.?Hard of hearing ?denies.?Difficulty chewing/swallowing/speaking?denies.?Nose bleeds?denies.?Sore mouth?denies.?Respiratory:?On O xygen?denies.?Pneumonia/pleurisy?denies.?Bronchitis?denies.?Emphysema?denies.?Co ughing?denies.?Cough blood?denies.?Shortness of breath?denies.?Wheezing?denies.?Cardiovascular:?Pacemaker?denies.?MVP?denies.?WPW?denies.?CHF?denies.?Heart attack?denies.?Septal defect?denies.?Rapid beat?denies.?Chest pain ?denies.?Atrial Fib.?denies.?Murmur/Palpitations?denies.?Gastrointestinal:?Hemorrhoids?denies.?Stomach/Abdominal pain?denies.?Dark blood stool?denies.?Irritable bowel ?denies.?Constipation?denies.?Diarrhea?denies.?Hematology:?Swelling?admits.?Clots?denies.?Varicose Veins?admits.?Bruising?denies.?Bleeding problem?denies.?Genitourinary:?Blood urine?denies.?Frequent/Painfu/urination/bladder control?denies.?Kidney stones?denies.?Infection (UTI)?denies.?Nephropathy?denies.?sex trans dis (STD)?denies.?Prostate?denies.?Musculoskeletal:?Hammertoes?admits.?Bunions?denies.?Back Pain?denies.?Muscle Cramps/ Resting?denies.?Muscle cramps / walking?denies.?Generalized aches and pains?denies.?Weakness?denies.?Integ.:?Saenz?denies.?Scars?denies.?Corns/calluses?admits.?Ingrown nails?admits.?Painful nails?denies.?Open Sores?denies.?Rashes?denies.?Neurologic:?Difficulty sleeping?denies.?Brain disorder?denies.?Numbness?denies.?Balance t rouble?denies.?Confusion?denies.?Fainting/blackouts?denies.?Tingling?denies.?Ricardo mors?denies.? * Medical History:? * Surgical History:?cataract s urgery * Hospitalization/Major Diagno stic Procedure:?No Hospitalization History. * Family History:?Mother: dece ased.?Father: .?Siblings: brother, diagnosed with Other malignant neoplasm of unspecified site, Diabetic - NIDDM.?Spouse: alive.? * Social History:?Tobacco Use:?Tobacco use other than smoking?Are you an other tobacco user??No ?Tobacco Control (Standard)?Tobacco use:?Nonsmoker ?Additional Findings: Tobacco non-user?Current nonsmoker ???Drugs/Alcohol:?Drugs?Have you used drugs other than those for medical reasons in the past 12 months??No ?Alcohol Screen?Did you have a drink containing alcohol in the past year??Yes ?Points?0 ?Interpretation?Negative ???Miscellaneous:?Caffeine: yes, frequency:. ?Exercise: no. ?Marital status: . 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 * Medications:?TakingAtorvasta tin Calcium Escitalopram Oxalate Folic Acid Lansoprazole Magnesium Oxide Phospha 250 Neutral Trulicity Vitamin B1 Extra Depth Orthopedic Shoes (1 Pair) with Customized Heat Molded Multidensity Innersoles (3 Pair) as directed Dx: NIDDM/Polyneuropathy (E11.42), Hammertoe Foot Deformity (M20.41,M20.42), Preulcerative Skin Lesion(s) (L85.1 Taking Atorvastatin Calcium Taking Escitalopram Oxalate Taking Folic Acid Taking Lansoprazole Taking Magnesium Oxide Taking Phospha 250 Neutral Taking Trulicity Taking Vitamin B1 Taking Extra Depth Orthopedic Shoes (1 Pair) with Customized Heat Molded Multidensity Innersoles (3 Pair) as directed Dx: NIDDM/Polyneuropathy (E11.42), Hammertoe Foot Deformity (M20.41,M20.42), Preulcerative Skin Lesion(s) (L85.1 Not-Taking/PRNCiclopirox Olamine 0.77 % Cream 1 application to affected area Externally to feet Twice a day Gabapentin Synjardy Medication List reviewed and reconciled with the patientNot-Taking/PRN Ciclopirox Olamine 0.77 % Cream 1 application to affected area Externally to feet Twice a day Not-Taking/PRN Gabapentin Not-Taking/PRN Synjardy Medication List reviewed and reconciled with the patient * Allergies:?Niacinyes[Allergi es Verified] Objective: * Vitals:?Ht: 5ft 11in, Wt:210 , BMI:29.29, Shoe size: 11, BP:128/70mm Hg, BS: did not test, Ht-cm: 180.34 cm, Wt-k.26 kg. * ???Past Orders: ???Lab:HEMOGLOBIN A1C (GLYCO HEMOGLOBIN) (Order Date - 01/13/2024) (Collection Date & Time - 01/13/2024 11:47 AM) ? Value Reference Range ?HEMOGLOBIN A1C % (HH) 7.2 * Examination: ???Ophthalmology Referral: ?DIABETES EYE EXAM?Procedure Performed:?Yes ?Date of Exam Performed?01/14/2024 ?Diabetic Retinopathy Screening:?Yes ?Retinal Screening Performed:?Yes ?Findings of Diabetic Eye Exam:?no retinopathy?Neurological: ?SENSORY:? Neurological exam demonstrates, reduced light touch sensation, reduced sharp/dull pin prick discrimination , B/L, 5.07 monofilament test performed at plantar aspects of 5 varied sites per foot shows sensation, reduced , B/L.?Nails: ?NAILS are:?Elongated, overgrown, dystrophic, lytic, greater than 3mm thick, discolored and friable with crumbly malodorous subungual debris, TA, T1, T2, T3, T4, T5, T6, T7, T8, T9.?Dermatologic: ?SKIN FINDINGS:? Skin exam reveals Keratotic lesion(s) located at, SUB MTH (s), 1, B/L , SUB MTH (s), 5, B/L ,Plantar, Heel(s), B/L.?Orthopedic: ?DIGITAL DEFORMITIES:?Digital contracture, PIPJ, 2-5 B/L, incompl-reducible to push-up test, no over, nor underlapping , no longer, with evidence of shoe producing skin irritation.?FOOTWEAR:?good condition, exhibit proper fit and accommodation for pedal deformities. OT were inspected and noted to be worn, but in good condition giving proper support at the present time.?General Examination: ?GENERAL APPEARANCE:?Reveals a pleasant, alert, well nourished, well- developed, well hydrated individual, who demonstrates proper attention to hygiene/body habitus, and is in no acute distress, Pt serves as own historian for office visit today.?ORIENTED:?person, place, and time.?FOOT EXAM:?Lower Extremity Neurological Exam performed:?Yes ?Visual exam of foot performed:?Yes ?Date?05/10/2024 ?Footwear Evaluation?Footwear Evaluation performed:?Yes??? Assessment: * Assessment: 1.?Type 2 diabetes mellitus with diabetic polyneuropathy - E11.42 (Primary)???2.?Tinea unguium - B35.1???3.?Other hammer toe(s) (acquired), right foot - M20.41???Specify :Chronic problem, Stable (1=3,2=4)???Notes :Response to treatment,Improvement???4.?Other hammer toe(s) (acquired), left foot - M20.42???Specify :Chronic problem, Stable (1=3,2=4)???Notes :Response to treatment,Improvement??? Plan: * Treatment: * Procedures:?Debride Nail 6-10:?Nail debridement?Due to the clinical pathology outlined in the exam findings, performance of this nail treatment is medically necessary as its management by an unskilled/untrained nonprofessional would put this patients foot and overall health at risk. Therefore, debridement to affected nail(s), as described in exam ( TA, T1, T2, T3, T4, T5, T6, T7, T8, T9 ), was performed exclusively by the physician of record to reduce/remove overall nail length, girth, thickness, subungual debris, and necrotic tissue, by manual and/or electrical means through the use of a nail nipper and/or dremel-type scissors grinder, to a more viable healthy nail plate or bed tissue 6- 10 nails in total. Silver nitrate was used for any petechial bleeding as necessary. Definitive antifungal treatment options, both pharmaceutical and surgical, have been reviewed and discussed with the patient. The patient solely prefers the use of intermittent/as needed professional debridement services for their nail condition and understands the need for additional periodic treatments to maintain effectiveness in symptomatic relief - 42916.?Keratoma Treatment:?Parring or Cutting of Benign Hyperkeratotic Lesion(s)?(-57) More than 4 Lesions - Due to the at risk nature of the patients medical condition as documented in the exam findings, performance of this keratoderma treatment is medically necessary as its management by an unskilled/untrained nonprofessional would put this patients foot and overall health at risk. Therefore, the benign hyperkeratotic lesions, ( 6 ) in total, locations as stated and described in the exam (?SUB MTH (s),?1,?B/L?,?SUB MTH (s),?5,?B/L?,Plantar,?Heel(s),?B/L?), were pared, and/or cut utilizing a sterile 15 blade, tissue nippers, and/or power dremel instrumentation by the physician of record - 42069.? * Procedure Codes:?67898 DEBRI DE NAIL, 6 OR MORE, Modifiers: XS 43758 TRIM SKIN LESIONS, OVER 4, Modifiers: XS * Preventive Medicine:? ??Counseling:?Discussion:?-13: Office or other outpatient visit for the evaluation and management of an established patient, which required a medically appropriate history and/or examination and LOW level of DECISION MAKING for: 1 STABLE ACUTE UNCOMPLICATED PROBLEM, 2 OR MORE MINOR PROBLEMS, OR 1 STABLE CHRONIC PROBLEM, THAT POSE(S) A LOW RISK FOR MORBIDITY/MORTALITY. The visit on the day of the [...] have encouraged the patient to call the office.?Shoe Gear Counseling:?A thorough inspection of the patients Rxed shoegear and inserts was performed and findings communicated. We reviewed the many important medical advantages for adhering to regularly wearing these shoe and insert accomidative devices daily as well as reviewed the fact that a failure in accepting these recommedations may be deleterious, unable to prevent, and disadvantagely result in, many pedal complications such as skin irritation, skin ulceration, infection, and even loss of toe/foot/leg/or even their life. Time was also spent reviewing the proper footcare techniques including daily skin moisturization, daily foot inspection for any interruption in skin integrity, open lesions, or sign of infection such as redness/malodor/drainage/swelling as well as daily shoe inspection for the presence of internal foreign bodies and shoe as well as insert wear. Patient questions re: shoes, inserts, and self foot inspections were answered to their satisfaction as the patient verbally confirmed a full understanding of the above information.? ??Screening/Special Tests:?Fall Risk?Screening:?No falls in the past year ?FALLS: Screening for Future Fall Risk?Have you had any falls with injury in the past year??No * Follow Up:?prn * Images: * Sign off status: Completed true * Provider:?Chris Arambula DPM Date:?2024 Generated for Ulisses roberts/Junior/Shi on:?07/14/2024 03:02 PM EDT History and Physical Notes * HPI (History of Present Illness) Category Sub-Category Detail Notes Category Not es Toe pain Treatments: Rx shoes At Risk footcare Pt States Last [...] B/L , SUB MTH (s), 5, B/L ,Plantar, Heel(s), B/L Orthopedic FOOTWEAR EVALUATION: good condit ion, exhibit proper fit and accommodation for pedal deformities. OT were inspected and noted to be worn, but in good condition giving proper support at the present time DIGITAL DEFORMITIES: Digital contracture , PIPJ, 2-5 B/L, incompl-reducible to push-up test, no over, nor underlapping , no longer, with evidence of shoe producing skin irritation General Examination GENERAL APPEARANCE: Reveals a pleasant, alert, well nourished, well-developed, well hydrated individual, who demonstrates proper attention to hygiene/body habitus, and is in no acute distress, Pt serves as own historian for office visit today FOOT EXAM: Lower Extremity Neurological Exa m performed:: Yes Visual exam of foot performed:: Yes Date: 05/10/2024 ORIENTED: person, place, and t be Footwear Evaluation Footwear Evaluation performe d:: Yes Ophthalmology Referral DIABETES EYE EXAM Procedure Perform ed:: Yes ?Date of Exam Performed: 01/14/2024 Diabetic Retinopathy Screening:: Yes Retinal Screening Performed:: Yes Findings of Diabetic Eye Exam:: no retin opathy Nails NAILS are: Elongated, overg rown, dystrophic, lytic, greater than 3mm thick, discolored and friable with crumbly malodorous subungual debris, TA, T1, T2, T3, T4, T5, T6, T7, T8, T9
--- OUTSIDE RECORDS SUMMARY | 2024-07-14 15:02 | XMS_ITS ---
[facility] Organization [facility] Address [address] [place] [address] Care Team Providers Care Locomotive Engineer Electric Name Role Phone Balbir Schmid MD Primary Care Provider Chris Douglas Unavailable [phone] Allergies Allergen (clinical drug ingredient) Drug/Non Drug [...] (Standard) Question Answer Notes Tobacco use: Nonsmoker Vital Signs Height 5ft 11 in in 02/02/2024 Weight 210 lbs 02/02/2024 BMI 29.29 kg/m2 02/02/2024 Procedures Procedure Date Ordered Date Performed Result Body Sit e 82040-PEHGRVJ NAIL, 6 OR MORE 02/02/2024 N/A 91206-CXAU SKIN LESIONS, OVER 4 02/02/2024 N/A Encounters Encounter Location Date Provider Diagnosis [facility] [address] [address] 02/02/2024 Chris Arambula Type 2 diabetes mellitus [...] INSTRUCTIONS.pdf) Pending Test Test Name Order Date 30295-[id number] NAIL, 6 OR MORE 02/02/2024 06391-COCR SKIN LESIONS, OVER 4 02/02/20 24 Next Appt Details Follow Up: prn, Reason: Provider Name:Chris Arambula , 08/09/2024 11:15:00 AM, [address] [facility], [address], [address], Procedure Notes * Category Sub-Category Detail Notes [...] T2, T3, T4, T5, T6, T7, T8, T9), was performed exclusively by the physician of record to reduce/remove overall nail length, girth, thickness, subungual debris, and necrotic tissue, by manual and/or electrical means through the use of a nail nipper and/or dremel-type wood grinder, to a more viable healthy nail [...] to maintain effectiveness in symptomatic relief - 72257 Keratoma Treatment Parring or Cutting o f [...] risk. Therefore, the benign hyperkeratotic lesions, ( 6) in total, locations as stated and described in the exam ( SUB MTH (s), 1, B/L , SUB MTH (s), 5, B/L ,Plantar, Heel(s), B/L), were pared, and/or cut utilizing a sterile 15 blade, tissue nippers, and/or power dremel instrumentation by the physician of record - 00240 Progress Notes * Laron ARNOLDDOB: [birth year] (68 yo M)Acc No.[id number]:02/02/2024 Progress Note Patient:?Laron ARNOLD Provider:?Chris Arambula DPM :1955???Age:68 Y???Sex:Male Gorge e:02/02/2024 Address:[address] [place] [address] Pcp:Balbir Schmid MD Subjective: * Chief Complaints: [...] other tobacco user??No ?Tobacco Control (Standard)?Tobacco use:?Nonsmoker ???Drugs/Alcohol:?Drugs?Have you used drugs other than those for medical reasons in the past 12 months??No ?Alcohol Screen?Did you have a drink containing alcohol in the past year??Yes ?Points?0 ?Interpretation?Negative ???Miscellaneous:?Caffeine: yes, frequency:. ?Exercise: no. ?Marital status: . 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 * Medications:?TakingAtorvasta tin Calcium Escitalopram Oxalate Folic [...] HEMOGLOBIN) (Order Date - 01/19/2024) (Collection Date & Time - 01/19/2024 11:27 AM) ? Value Reference Range ?TOTAL HEMOGLOBIN (HGBA1C) [...] MTH (s), 5, B/L ,Plantar, Heel(s), B/L.?Orthopedic: ?MUSCLE STRENGTH:?5/5 all groups in [...] gear properties exacerbate patients foot/toe deformity.?Vascular: ?DP PULSES (B):?1/4, LEFT, 2/4, RIGHT.?PT PULSES (B):? 0/4, B/L.?CAPILLARY FILL TIME:? 3-4 secs. per digit, B/L.?TROPHIC CONDITION-TEXTURE/ELASTICITY/TURGOR/HAIR GROWTH (B):? decreased, with sparse to absent hair growth, B/L.?TEMPERTURE GRADIENT (C):? decreased, cool to cool, proximal to distal, B/L.?PIGMENTATION:?brawny, B/L.?EDEMA (C):? 2/4, non-pitting, without aching pain, B/L, Leg(s).?Ophthalmology Referral: ?DIABETES EYE EXAM?Procedure Performed:?Yes ?Date of Exam Performed?01/14/2024 ?Diabetic Retinopathy Screening:?Yes ?Findings of Diabetic Eye Exam:?no retinopathy?General Examination: ?GENERAL APPEARANCE:?Reveals a pleasant, alert, well nourished, well- developed, well hydrated individual, who demonstrates proper attention to hygiene/body habitus, and is in no acute distress, Pt serves as own historian for office visit today.?ORIENTED:?person, place, and time.?FOOT EXAM:?Lower Extremity Neurological Exam performed:?Yes ?Visual exam of foot performed:?Yes ?Date?02/02/2024 ?Footwear Evaluation?Footwear Evaluation performed:?Yes??? Assessment: * Assessment: 1.?Type 2 diabetes mellitus with diabetic polyneuropathy - E11.42 (Primary)???2.?Tinea unguium - B35.1???3.?Other hammer toe(s) (acquired), right foot - M20.41???Specify :Chronic problem, Worse (4),Rx Management (4)???4.?Other hammer toe(s) (acquired), left foot - M20.42???Specify :Chronic problem, Worse (4),Rx Management (4)??? Plan: * Treatment: 2.?Other hammer toe(s) (acqu ired), right foot? Start Extra Depth Orthopedic Shoes (1 Pair) with Customized Heat Molded Multidensity Innersoles (3 Pair), as directed, Dx: NIDDM/Polyneuropathy (E11.42), Hammertoe Foot Deformity (M20.41,M20.42), Preulcerative Skin Lesion(s) (L85.1, 1, Refills 0.?? Notes: Patient Educated with: DIABETIC FOOT CARE INSTRUCTIONS.pdf (DIABETIC FOOT CARE INSTRUCTIONS.pdf)?? * Procedures:?Debride Nail 6-10:?Nail debridement?Due to the clinical pathology outlined in the exam findings, performance of this nail treatment is medically necessary as its management by an unskilled/untrained nonprofessional would put this patients foot and overall health at risk. Therefore, debridement to affected nail(s), as described in exam (?TA, T1, T2, T3, T4, T5, T6, T7, T8, T9), was performed exclusively by the physician of record to reduce/remove overall nail length, girth, thickness, subungual debris, and necrotic tissue, by manual and/or electrical means through the use of a nail nipper and/or dremel-type wood grinder, to a more viable healthy nail [...] to maintain effectiveness in symptomatic relief - 99568.?Keratoma Treatment:?Parring or Cutting of Benign Hyperkeratotic Lesion(s)?(-57) More than 4 Lesions - Due to the at risk nature of the patients medical condition as documented in the exam findings, performance of this keratoderma treatment is medically necessary as its management by an unskilled/untrained nonprofessional would put this patients foot and overall health at risk. Therefore, the benign hyperkeratotic lesions, ( 6) in total, locations as stated and described in the exam (?SUB MTH (s),?1,?B/L?,?SUB MTH (s),?5,?B/L?,Plantar,?Heel(s),?B/L), were pared, and/or cut utilizing a sterile 15 blade, tissue nippers, and/or power dremel instrumentation by the physician of record - 28989.? * Procedure Codes:?95101 DEBRI DE NAIL, 6 OR MORE, Modifiers: XS 20073 TRIM SKIN LESIONS, OVER 4, Modifiers: XS [...] (s), 5, B/L ,Plantar, Heel(s), B/L Orthopedic FOOT MORPHOLOGY: No Charcot howard apse/destruction noted at MIJ FOOTWEAR EVALUATION: worn, OT were inspe cted and noted to be severely worn , [...] Visual exam of foot performed:: Yes Date: 02/02/2024 ORIENTED: person, place, and t be Footwear Evaluation Footwear Evaluation performe d:: Yes Ophthalmology Referral DIABETES EYE EXAM Procedure Perform ed:: Yes ?Date of Exam Performed: 01/14/2024 Diabetic Retinopathy Screening:: Yes Findings of Diabetic Eye Exam:: [...]
--- OUTSIDE RECORDS SUMMARY | 2024-07-14 15:02 | XMS_ITS | Clinical Summary ---
Author Organization [facility] Address [address] [place] [address] Care Team Providers Care Regulatory Affairs Analyst Name Role Phone Unavailable Primary Care Provider [...] Colorectal Cancer Screening: Sigmoidoscopy 2006 Pneumococcal Vaccine: 50+ Ye ars (1 of 1 - PCV) 12/06/2007 Influenza Vaccine (Season Ended) 2024 Hepatitis B Vaccine Aged Out No longe r eligible based on patient's age to complete this topic Insurance [facility]
== END 2024-07-14 13:38 | disposition home or self-care (01) ==
LOC: HO.HUSH 12:42
PROVIDERS: PCP Family Medicine; Visit Provider Urology
DX: R97.20 Elevated prostate specific antigen [PSA] (principal); N32.0 Bladder-neck obstruction
CPT/HCPCS: 99214; G2211

== ENCOUNTER → 2024-07-14 12:41 | Outpatient (BNVA) | payer MEDICARE, SELFPAY | PROVIDERS: PCP Family Medicine; Visit Provider Urology | DX: R97.20 Elevated prostate specific antigen [PSA] (principal); N32.0 Bladder-neck obstruction | CPT/HCPCS: 99212 ==

== ENCOUNTER 2024-08-10 11:22 | Outpatient (REF) | payer MEDICARE, SELFPAY ==
--- OUTSIDE RECORDS SUMMARY | 2024-08-10 13:00 | XMS_ITS | Clinical Summary ---
Author Organization [facility] Address [address] [place] [address] Care Team Providers Care Dredgemaster Name Role Phone Unavailable Primary Care Provider [...] patient's age to complete this topic Insurance [facility]
--- OUTSIDE RECORDS SUMMARY | 2024-08-10 13:00 | XMS_ITS ---
Author [facility] Address [address] [place] [address] Care Team Providers Care Boarder Machine Name Role Phone Balbir Schmid MD Primary Care Provider Chris Douglas Unavailable [phone] Allergies Allergen (clinical drug ingredient) Drug/Non Drug [...] Blood pressure systolic 128 mm Hg 05/10/19 Blood pressure diastolic 70 mm Hg 025 Procedures Procedure Date Ordered Date Performed Result Body Sit e 45796-SVTSRJL NAIL, 6 OR MORE 05/10/2024 N/A 58011-FQWC SKIN LESIONS, OVER 4 05/10/2024 N/A Encounters Encounter Location Date Provider Diagnosis [facility] [address] [place] [address] [address] [place] [address] 05/10/2024 Chris Arambula Type 2 diabetes mellitus [...] Treatment Pending Test Test Name Order Date 65406-UQXDOAO NAIL, 6 OR MORE 05/10/2024 48264-XXJQ SKIN LESIONS, OVER 4 05/10/19 25 Next Appt Details Follow Up: prn, Reason: Provider Name:Chris Yumiko MoncadaRalf , 11/01/2024 04:00:00 PM, [address] [facility], [address], [place], [address], Procedure Notes * Category Sub-Category Detail Notes [...] use of a nail nipper and/or dremel-type sausage grinder, to a more viable healthy nail [...] to maintain effectiveness in symptomatic relief - 62900 Keratoma Treatment Parring or Cutting o f [...] instrumentation by the physician of record - 49862 Progress Notes * Laron ARNOLDDOB: [birth year] (68 yo M)Acc No.[id number]:05/10/2024 Progress Note Patient:?Laron ARNOLD Provider:?Chris Arambula DPM :1955???Age:68 Y???Sex:Male Gorge e:05/10/2024 Address:[address] [place], [place] [phone] Pcp:Balbir Schmid MD Subjective: * Chief Complaints: [...] ?Exercise: no. ?Marital status: . 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 * Medications:?TakingAtorvasta tin Calcium Escitalopram Oxalate Folic [...] use of a nail nipper and/or dremel-type sausage grinder, to a more viable healthy nail [...] to maintain effectiveness in symptomatic relief - 53164.?Keratoma Treatment:?Parring or Cutting of Benign Hyperkeratotic Lesion(s)?(-57) [...] instrumentation by the physician of record - 02506.? * Procedure Codes:?83255 DEBRI DE NAIL, 6 OR MORE, Modifiers: XS 98715 TRIM SKIN LESIONS, OVER 4, Modifiers: XS [...] * Provider:?Chris Arambula DPM Date:?2024 Generated for lUisses roberts/Junior/Shi on:?08/10/2024 12:59 PM EDT History and Physical Notes * [...]
--- OUTSIDE RECORDS SUMMARY | 2024-08-10 13:00 | XMS_ITS ---
Author Organization [facility] Address [address] [place] [address] Care Team Providers Care Transport Tank Technician Name Role Phone Sharmaine WALLACE, Balbir Primary Care Provider Chris Douglas Unavailable [phone] Encounters Encounter Location Date Provider Diagnosis [address] [address] 08/09/2024 Chris Arambula Plan Of Treatment Next Appt Details Provider Name:Chris Arambula , 11/01/2024 04:00:00 PM, [address], [address], Progress Notes * Laron ARNOLDDOB: [birth year] (68 yo M)Acc No.[id number]:08/09/2024 Progress Note Patient:?Laron ARNOLD Provider:?Chris Arambula DPM :1955???Age:68 Y???Sex:Male Gorge e:08/09/2024 Address:[address] [place], [place] [phone] Pcp:Balbir Schmid MD Subjective: * Chief Complaints: * ??? * Medical History:? Objective: * Vitals:? Assessment: Plan: * Treatment: * Images: * The named appointment provid er may or may not be the originator of this progress note, and it is not deemed complete until electronically signed by the appointment provider. Sign off status: Pending * Provider:?Chris Arambula DPM Date:?2024 Generated for Ulisses roberts/Junior/Shi on:?08/10/2024 12:59 PM EDT
--- OUTSIDE RECORDS SUMMARY | 2024-08-10 13:00 | XMS_ITS ---
Author Organization [facility] Address [address] [place] [address] Care Team Providers Care Right Of Way Clearer Name Role Phone Balbir Schmid MD Primary Care Provider Chris Douglas Unavailable [phone] REASON FOR VISIT SD cx 08/09 Encounters Encounter Location Date Provider Diagnosis [facility] [address] [place] [address] 08/09/2024 Chris Arambula Plan Of Treatment Next Appt Details Provider Name:Chris Arambula , 11/01/2024 04:00:00 PM, [address] [facility], [address], [address], Progress Notes * Laron ARNOLDDOB: [birth year] (68 yo M)Acc No.[id number]:08/09/2024 Patient:?Laron ARNOLD :1955???Age:68 Y???Sex:Male Address:[address] [place] [address], [address] * true * Date:? Generated for Bobbyi alejandra/Junior/eTransmitting on:?08/10/2024 12:59 PM EDT
--- OUTSIDE RECORDS SUMMARY | 2024-08-10 13:00 | XMS_ITS | Patient Health Record ---
Author Organization [facility] Address [address] [place] [address] Care Team Providers Care Mental Health Professional Name Role Phone Balbir Schmid MD Primary Care Provider Chris Douglas Unavailable [phone] Allergies Allergen (clinical drug ingredient) Drug/Non Drug Allergy documented on EMR Reaction Allergy Type Onset Date Status niacin Niacin Unknown Drug Allergy Active Results Component Value Reference Range Notes HEMOGLOBIN A1C (GLYCOHEMOGLO BIN) Reviewed date:05/10/2024 11:47:57 AM Interpretation: Performing Lab: Notes/Report: HEMOGLOBIN A1C % (HH) 7.2 HEMOGLOBIN A1C (GLYCOHEMOGLO BIN) Reviewed date:02/02/2024 11:28:01 AM Interpretation: Performing Lab: Notes/Report: TOTAL HEMOGLOBIN (HGBA1C) 7.2 Reason For Referral No Information Medications Medication SIG (Take, Route, Frequency, Duration) Notes Start Date End Date Status Trulicity Active Vitamin B1 Active Extra Depth Orthopedic Shoes (1 Pair) with Customized Heat Molded Multidensity Innersoles (3 Pair) as directed Dx: NIDDM/Polyneuropathy (E11.42), Hammertoe Foot Deformity (M20.41,M20.42), Preulcerative Skin Lesion(s) (L85.1 Active Atorvastatin Calcium Active Synjardy Not-Taking Escitalopram Oxalate Active Ciclopirox Olamine 0.77 % 1 application to affected area Externally to feet Twice a day for 30 days Not-Taking Gabapentin Not-Takin g Magnesium Oxide Acti ve Phospha 250 Neutral Active Folic Acid Active Lansoprazole Active Social History Tobacco Use: Social History [...] Additional Findings: Tobacco non-user Current no nsmoker Problems Problem Type SNOMED Code ICD Code Onset Dates Problem Status W/U Status Risk Notes Problem Acquired hammer toe of right foot (6727207156222683 ) Other hammer toe(s) (acquired), right foot (M20.41) Active confirmed Response to treatment, Improvemen t Problem Acquired hammer toe of left foot (4303866202269363 ) Other hammer toe(s) (acquired), left foot (M20.42) Active confirmed Response to treatment, Improvemen t Problem Polyneuropathy due to type 2 diabetes mellitus (988800499) Type 2 diabetes mellitus with diabetic polyneuropathy (E11.42) Active confirmed Vital Signs Blood pressure diastolic 70 mm Hg 05/10/2024 Height 5ft 11in in 05/10/2024 Blood pressure systolic 128 mm Hg 05/10/2024 Weight 210 lbs 05/10/2024 BMI 29.29 kg/m2 05/10/2024 Procedures Procedure Date Ordered Date Performed Result Body Sit e 33245-QIFKLDP NAIL, 6 OR MORE 11/03/2023 N/A 41378-IAMK SKIN LESIONS, OVER 4 11/03/2023 N/A 52914-WHNWXHS NAIL, 6 OR MORE 02/02/2024 N/A 62579-GXFV SKIN LESIONS, OVER 4 02/02/2024 N/A 56724-MUKUDDF NAIL, 6 OR MORE 05/10/2024 N/A 25981-QTGZ SKIN LESIONS, OVER 4 05/10/2024 N/A Encounters Encounter Location Date Provider Diagnosis [facility] [address] [place] [address] 11/03/2023 Chrisann Arambula Type 2 diabetes mellitus with diabetic polyneuropathy E11.42 and Tinea unguium B35.1 [facility] [address] [place] [address] 02/02/2024 Chrisann Arambula Type 2 diabetes mellitus with diabetic polyneuropathy E11.42 ; Tinea unguium B35.1 ; Other hammer toe(s) (acquired), right foot M20.41 and Other hammer toe(s) (acquired), left foot M20.[address] [address] 05/10/2024 Chris Arambula Type 2 diabetes mellitus with diabetic polyneuropathy E11.42 ; Tinea unguium B35.1 ; Other hammer toe(s) (acquired), right foot M20.41 and Other hammer toe(s) (acquired), left foot M20.[address] [address] 09/23/2023 Chris Arambula [address] [address] 08/09/2024 Chris Arambula Assessments Encounter Date Diagnosis (ICD Code) Assessment Notes Treatment Notes Treatment Clinical Notes Section Notes 11/03/2023 Type 2 diabetes mellitus with diabetic polyneuropathy (ICD-10 - E11.42) 11/03/2023 Tinea unguium (ICD-10 - B35.1) 02/02/2024 Type 2 diabetes mellitus with diabetic polyneuropathy (ICD-10 - E11.42) 02/02/2024 Tinea unguium (ICD-10 - B35.1) 05/10/2024 Type 2 diabetes mellitus with diabetic polyneuropathy (ICD-10 - E11.42) 05/10/2024 Tinea unguium (ICD-10 - B35.1) 05/10/2024 Other hammer toe(s) (acquired), right foot (ICD-10 - M20.41) Response to treatment,Impro vement 02/02/2024 Other hammer toe(s) (acquired), right foot (ICD-10 - M20.41) Patient Educated with: DIABETIC FOOT CARE INSTRUCTIONS. pdf (DIABETIC FOOT CARE INSTRUCTIONS. pdf) 02/02/2024 Other hammer toe(s) (acquired), left foot (ICD-10 - M20.42) 05/10/2024 Other hammer toe(s) (acquired), left foot (ICD-10 - M20.42) Response to treatment,Impro vement Plan Of Treatment Pending Test Test Name Order Date 96199-OKPOIGF NAIL, 6 OR MORE 12/06/2021 50644-UCZXZLE NAIL, 6 OR MORE 02/27/2022 99683-UEYYUIM NAIL, 6 OR MORE 05/29/2022 73930-ROJASBI NAIL, 6 OR MORE 08/28/2022 82187-FHSLVZK NAIL, 6 OR MORE 12/04/2022 95208-TAUWAPN NAIL, 6 OR MORE 03/12/2023 38154-TVEVVNL NAIL, 6 OR MORE 06/26/2023 03637-LMQWXLS NAIL, 6 OR MORE 11/03/2023 36269-ZCWCPGI NAIL, 6 OR MORE 02/02/2024 17950-ZRFCHER NAIL, 6 OR MORE 05/10/2024 72894-DUPG SKIN LESIONS, OVER 4 05/10/19 25 78874-OOGQ SKIN LESIONS, OVER 4 02/02/20 24 00627-EPAG SKIN LESIONS, OVER 4 11/03/19 24 89735-GUSJ SKIN LESIONS, OVER 4 06/26/19 24 79831-TOSU SKIN LESIONS, OVER 4 03/12/20 23 74280-ELDK SKIN LESIONS, OVER 4 12/05/19 23 84635-QBWS SKIN LESIONS, OVER 4 08/29/19 23 33607-VJAO SKIN LESIONS, OVER 4 05/30/19 23 95802-LHKL SKIN LESIONS, 2 TO 4 02/28/20 22 41037-IWDZ SKIN LESIONS, 2 TO 4 12/07/19 22 Next Appt Details Provider Name:Chris Arambula , 11/01/2024 04:00:00 PM, [facility] [address], [place], [address], Insurance Providers Payer Name Payer Address Payer Phone Subscriber Number Group Number Insured Name Patient Relationship to Insured Coverage Start Date Coverage End Date Medicare National Govt [facility] [address] [place] [address] [id number] Laron Morrison Self - patient is the insured [employer] [address] [place] [address] [id number] Laron Morrison Self - patient is the insured Medical (General) History Medical History History ICD Code type II diabetes Polyneuropathy Alcohol abuse Anxiety Depression Hypertension Peripheral vascular disease Back,Hip,and Knee pain Chron's/ Colitis CAD Surgical History Surgery Date(Month/Year) cataract surgery
[2024-08-10 14:47] LABS: Anion Gap 15 (12-20); Blood Urea Nitrogen 6 mg/dL (9-16); Carbon Dioxide 28 mmol/L (22-29); Chloride 98 mmol/L (96-108); Estimated Glomerular Filt Rate > 60; Glucose Random 135 mg/dL (60-115); Potassium 4.5 mmol/L (3.3-5.1); Sodium 136 mmol/L (135-145)
== END 2024-08-10 11:23 | disposition home or self-care (01) ==
LOC: HO.WFDLDS 11:22
PROVIDERS: Visit Provider Internal Medicine
DX: Z13.89 Encounter for screening for other disorder (principal)
CPT/HCPCS: 36415; 80051; 82565; 82947; 84520

== ENCOUNTER 2024-08-13 13:55 | Outpatient (REF) | payer MEDICARE, SELFPAY ==
--- OUTSIDE RECORDS SUMMARY | 2024-08-13 14:46 | XMS_ITS | Clinical Summary ---
Author Organization [facility] Facility Address [address] [place] [address] Care Team Providers Care Distributor Of Directories Name Role Phone Unavailable Primary Care Provider [...] patient's age to complete this topic Insurance [facility]
[2024-08-13 15:16] LABS: INTERNATIONAL NORM RATIO 1.6 (0.9-1.1); Prothrombin Time 18.8 SEC (10.9-12.4)
[2024-08-13 15:41] LABS: Alanine Aminotransferase 43 U/L (0-40); Albumin Level 3.4 g/dL (3.5-5.0); Aspartate Amino Transferase 118 U/L (5-37); Bilirubin Direct 3.3 mg/dL (0.0-0.5); Lipase 34 U/L (8-78); Magnesium 1.9 mg/dL (1.6-2.6); Total Protein 9.3 g/dL (6.5-8.0)
[2024-08-13 16:00] LABS: Alkaline Phosphatase 176 U/L (39-117); Ferritin 764 ng/mL (20-250)
[2024-08-13 16:12] LABS: Folate 17.6 ng/mL (> or = 4.0); Vitamin B12 979 pg/mL (200-900)
[2024-08-14 07:35] LABS: Hepatitis A Antibody IgM 0.18 Index (0-0.79); ~Hepatitis A Antibody IgM Nonreactive (Nonreactive)
[2024-08-14 08:03] LABS: HBS Num1 3.18 mIU/mL (0-7.99); HBc Num1 0.16 S/CO (0.00-0.79); HBsAGNum1 0.37 S/CO (0.00-0.99); Hepatitis B Core Antibody Nonreactive (Nonreactive); Hepatitis B Surface Antigen Negative (Negative); ~HepC Num1 0.14 S/CO (0.00-0.79); ~Hepatitis B Surface Antibody NONREACTIVE (Nonreactive); ~Hepatitis C Antibody Nonreactive (Nonreactive)
[2024-08-16 14:43] LABS: Ceruloplasmin 25 mg/dL (14-30)
[2024-08-17 13:03] LABS: Mitochondrial Antibodies NEGATIVE (NEGATIVE)
[2024-08-18 00:33] LABS: Vitamin A 18 mcg/dL (38-98)
[2024-08-18 05:28] LABS: Smooth Muscle Antibody 34 U (<20)
[2024-08-20 14:04] LABS: Vitamin D 25-OH, D2 <4 ng/mL; Vitamin D 25-OH, D3 37 ng/mL; Vitamin D 25-OH, Total 37 ng/mL (30-100)
== END 2024-08-13 13:56 | disposition home or self-care (01) ==
LOC: HO.LAB 13:55
PROVIDERS: PCP Family Medicine; Visit Provider Nurse Practitioner Family
DX: K86.89 Other specified diseases of pancreas (principal); E55.9 Vitamin D deficiency, unspecified; N18.9 Chronic kidney disease, unspecified; R79.89 Other specified abnormal findings of blood chemistry; R10.9 Unspecified abdominal pain; R74.01 Elevation of levels of liver transaminase levels; R74.8 Abnormal levels of other serum enzymes; R19.7 Diarrhea, unspecified; F10.10 Alcohol abuse, uncomplicated; K70.30 Alcoholic cirrhosis of liver without ascites
CPT/HCPCS: 36415; 80076; 82306; 82390; 82607; 82728; 82746; 83690; 83735; 84590; 84591; 85610; 86015; 86381; 86704; 86706; 86709; 86803; 87340; 99212

== ENCOUNTER 2024-08-13 13:55 | Outpatient (AMB) | payer MEDICARE, SELFPAY ==
--- OUTSIDE RECORDS SUMMARY | 2024-08-13 13:57 | XMS_ITS ---
Author Organization [facility] Address [address] [place] [address] Care Team Providers Care Ocean Freight Agent Name Role Phone Sharmaine WALLACE, Balbir Primary Care Provider Chris Douglas Unavailable [phone] Encounters Encounter Location Date Provider Diagnosis [address] [address] 08/09/2024 Chris Arambula Plan Of Treatment Next Appt Details Provider Name:Chris Arambula , 11/01/2024 04:00:00 PM, [address], [address], Progress Notes * aLron ARNOLDDOB: [birth year] (68 yo M)Acc No.[id number]:08/09/2024 Progress Note Patient:?Laron ARNOLD Provider:?Chris Arambula DPM :1955???Age:68 Y???Sex:Male Gorge e:08/09/2024 Address:[address] [place], [place] [id number] Pcp:Balbir Schmid MD Subjective: * Chief Complaints: [...] Arambula DPM Date:?2024 Generated for Ulisses roberts/Junior/Shi on:?08/13/2024 01:57 PM EDT
--- NOTE | 2024-08-13 13:58 | MHC.OFFVIS ---
Vital Signs 08/13/24 14:15 Height 5 ft 11 in Weight 210 lb BMI 29.3 BP 134/68 Blood Pressure Location Rt brachial Position Sitting Pulse 102 H Pulse Source Pulse Oximeter Pulse Oximetry (%) 93 Oxygen Delivery Method Room Air Intake Visit Reasons: 30m 6 mos FUV + Discuss colo Intake Note: ESTABLISHED PATIENT for mgmt of cirrhosis. US done, pt notified to have labs done. (08/10) CC; Pt denies any GI sx or concerns at this time. Last colo in 2017. Conference Services Coordinator Required: No Accompanied by: Self / Same As Patient Allergies niacin [NIACIN] Adverse Reaction (Mild, Verified 08/13/24 14:00) RED FLUSH, SHAKING HPI HPI 30m 6 mos FUV + Discuss colo: Details: LAST VISIT: Alcohol abuse Cirrhosis Elevated liver enzymes Plan Long discussion with patient about abstaining from alcohol. Patient will be sent for ultrasound with elastography. Will check vitamin levels, recheck liver panel. We will also do Hep A, B,C panel again and if antibodies are negative patient will be asked to return to the office for vaccine A and B. 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 Patient will try to go into detox so we can safely quit drinking. PCP put the referral in in the middle of December. Patient was encouraged to follow-up. I will see patient in 6 months. He understands that he needs to quit drinking and follow low protein, low carb, low-fat and low-salt diet. List of food recommended for patients with liver cirrhosis given to him. He is agreeable to current plan of care and verbalizes understanding of instructions. He was given the opportunity to ask questions and all questions answered. ? Thank you for allowing me to participate in his care Orders Orders Vitamin A Today K86.89 Vitamin B3 (Niacin) Today K86.89 Vitamin D 25-OH (D2 and D3) Today E55.9 Magnesium Today N18.9 Hepatitis A,B,C Profile Today R79.89 Liver Panel Today R74.01 US abdomen lezama w elastography Today K76.0 Prothrombin Time INR Today R74.8 Vitamin B12 and Folate Today R19.7 TODAY'S VISIT: Patient is here today for follow-up and to discuss going for colonoscopy. Patient will also go for upper endoscopy. Patient denies any GI concerning symptoms. But admits to be drinking alcohol still. Ultrasound results discussed with patient. Patient denies any issues with anesthesia in the past. No history of sleep apnea. Not on any anticoagulation medication. Patient denies melena, hematochezia, unintentional weight loss or ribbon like stools. Patient denies dyspepsia, dysphagia or odynophagia. No family history of CRC PFSH Medical History Bleeding hemorrhoids Transaminitis Hemorrhoids without complication History of alcohol abuse Diabetes type 2, uncontrolled PVD (peripheral vascular disease) Diabetic polyneuropathy associated with type 2 diabetes mellitus Diabetes type 2, controlled Alcohol abuse Hypertension Neuropathy Diabetes Depression Anxiety Surgical History H/O colonoscopy Family History Mother No problems noted. Father No problems noted. Social History Household Members: Family Housing: House Do you presently have visiting nurse or other home services: No Alcohol intake: former Patient Tobacco Use Status: Current everyday Tobacco user Tobacco use type: Cigarette Cigarettes Per Day: 4 Years Smoked: 50 e-Cigarette/Vaping Use: Never Used Second Hand Smoke Exposure: Yes service: No Current occupational status: retired Current occupational exposures/hazards: No Cognitive needs: Yes (cane) Hearing needs: No Vision needs: Yes (reading glasses) Review of Systems Const Denies weight gain and Denies weight loss ENT Reports no additional complaints, Denies dysphagia and Denies odynophagia Card Reports no additional complaints Resp Reports no additional complaints GI Denies abdominal pain, Denies belching, Denies melena, Denies bloating, Denies change in bowel habits, Denies dysphagia, Denies excessive flatus, Denies dyspepsia, Denies heartburn, Denies diarrhea, Denies loose stools, Denies nausea, Denies odynophagia and Denies vomiting Reports no additional complaints Musc Reports no additional complaints Neuro Reports no additional complaints Psych Reports no additional complaints Endo Reports no additional complaints Physical Exam Vital Signs: Last Vital Signs Pulse 102 H 08/13/24 14:15 BP 134/68 08/13/24 14:15 Pulse Ox 93 08/13/24 14:15 Oxygen Delivery Method Room Air 08/13/24 14:15 BMI result Body Mass Index 29.3 Const General: no acute distress Nutritional Appearance: obese Orientation/consciousness: patient oriented x3 Resp Effort & Inspection: normal respiratory effort, able to speak in complete sentences, no tracheal deviation and symmetric chest movement Auscultation: clear to auscultation bilaterally Cardio Rate: regular rate GI Inspection: Yes normal to inspection, No distended and Yes obesity Palpation (GI): Soft to palpation, not firm, nontender and No hepatosplenomegaly present Auscultation: Hyperactive bowel sounds present General: Yes no CVA tenderness Back/Spine/Pelvis Back: no CVA tenderness Skin General skin exam: elasticity normal, turgor normal and dry skin Neuro General: patient oriented x3 Psych Appearance: grossly normal Mental Status: mental status grossly normal Results Reviewed Results Reviewed: Laboratory Tests 12/17/23 10:45 Total Bilirubin 2.3 H Direct Bilirubin 1.1 H AST 49 H ALT 22 Alkaline Phosphatase 183 H Liver Fibrosis Stage F4 FINDINGS: PANCREAS: The visualized pancreatic head and body are normal in appearance. The remainder of the pancreas is obscured from visualization by the overlying bowel gas. LIVER: Liver is enlarged, with diffusely increased and coarsened echogenicity. The contour is macrolobulated suggesting cirrhotic changes. No focal suspicious lesion. Focal fatty sparing abutting the gallbladder fossa. The right lobe measures 25.3 cm in length. The left lobe measures 17.9 cm in length. There is hepatopedal portal flow. Shear wave elastography provides a median stiffness of 2.01 m/s (reference: normal median stiffness is 0.81 - 1.22 m/s). Previously this value measured 2.1 m/s. The IQR/median stiffness to assess sampling precision is 0.10 (reference: optimal IQR/median stiffness is under 0.3). GALLBLADDER: The gallbladder is physiologically distended without evidence of stones. There appears to be a small amount of sludge in the fundus. Mild wall thickening up to 6 mm is present, with negative sonographic Arteaga's sign. No definite pericholecystic fluid. COMMON BILE DUCT: Normal in caliber measuring 0.5 cm in diameter. RIGHT KIDNEY: No hydronephrosis. No renal calculi or focal parenchymal lesions. The kidney measures 14.1 cm in maximum dimension. Previously seen upper pole cyst is no longer visualized. FREE FLUID: Trace perihepatic fluid is present. US/US abdomen lezama w elastography IMPRESSION: 1. Liver is enlarged, increased and coarsened in echogenicity, with a macrolobulated contour suggesting a mix of hepatocellular disease/early cirrhosis and fatty infiltration. No suspicious lesions. Trace perihepatic fluid. 2. Elastography: Liver elastography measurements are consistent with a moderate risk for clinically significant liver fibrosis (METAVIR Stage F2-F3). (I.e. measurements are suggestive of compensated advanced chronic liver disease, but need further test for confirmation). There has been no significant interval change in these measurements from the prior exam. 3. Gallbladder demonstrates mild wall thickening, likely on the basis of underlying hepatocellular disease. Small amount of probable sludge in the fundus. No calculi and negative sonographic Arteaga sign. 4. No biliary abnormalities. Assessment & Plan Assessment & Plan (1) Alcohol abuse: Code(s): F10.10 - Alcohol abuse, uncomplicated Category: Social Hx (2) Cirrhosis: Code(s): K74.60 - Unspecified cirrhosis of liver Category: Medical Qualifiers: Hepatic cirrhosis type: alcoholic cirrhosis Ascites presence: without ascites Qualified Code(s): K70.30 - Alcoholic cirrhosis of liver without ascites (3) Elevated liver enzymes: Code(s): R74.8 - Abnormal levels of other serum enzymes Category: Medical (4) Screening for colon cancer: Code(s): Z12.11 - Encounter for screening for malignant neoplasm of colon Category: Medical Plan Patient was encouraged to go and get his blood work done. Will add additional labs. Check his lipase as well. Referral to addiction medicine for help with detox from alcohol. Patient will be sent for colonoscopy and upper endoscopy. What to expect before during and after procedure discussed with patient. Stressed the importance of good bowel prep and clear liquid diet day before procedure. I will see him after the procedure, sooner on as needed basis. He is agreeable to this plan and verbalizes understanding of instructions. He was given the opportunity to ask questions and all questions answered Thank you for allowing me to participate in his care Orders: Orders Lipase 08/13/24 R10.9 - Unspecified abdominal pain Mitochondrial Antibody 08/13/24 R79.89 - Other specified abnormal findings of blood chemistry Ferritin 08/13/24 R74.8 - Abnormal levels of other serum enzymes Smooth Muscle Antibody 08/13/24 R79.89 - Other specified abnormal findings of blood chemistry Ceruloplasmin 08/13/24 R79.89 - Other specified abnormal findings of blood chemistry Referrals Addiction Medicine Referral F10.10 - Alcohol abuse, uncomplicated Medications: New polyethylene glycol 3350 (Miralax) As directed by gastroenterology department at [facility] 238 grams PO ONCE 238 grams 0RF Z12.11 - Encounter for screening for malignant neoplasm of colon bisacodyl (Dulcolax (bisacodyl)) take 4 tabs at noon the day before your colonoscopy 20 mg (4 x 5 mg) PO ONCE 4 tabs 0RF 1 day Z12.11 - Encounter for screening for malignant neoplasm of colon Coding Level of Care Code Est Pt Level 3 (05600) Diagnoses Alcohol abuse F10.10 Alcoholic cirrhosis of liver without ascites K70.30 Hepatic cirrhosis type: alcoholic cirrhosis Ascites presence: without ascites Elevated liver enzymes R74.8 Screening for colon cancer Z12.11 Time Spent (min) 30 Comment 20 minutes spent with patient and additional 10 minutes spent reviewing his records
--- OUTSIDE RECORDS SUMMARY | 2024-08-13 13:58 | XMS_ITS ---
Author Organization [facility] Address [address] [place] [address] Care Team Providers Care Helicopter Crew Chief Name Role Phone Balbir Schmid MD Primary Care Provider Chris Douglas Unavailable [phone] REASON FOR VISIT SD cx 08/09 Encounters Encounter Location Date Provider Diagnosis [facility] [address] [place] [address] 08/09/2024 Chris Arambula Plan Of Treatment Next Appt Details Provider Name:Chris Arambula , 11/01/2024 04:00:00 PM, [address] [facility], [address], [address], Progress Notes * Laron ARNOLDDOB: [birth year] (68 yo M)Acc No.[id number]:08/09/2024 Patient:?Laron ARNOLD :1955???Age:68 Y???Sex:Male Address:[address] [place] [address], [address] * true * Date:? Generated for Bobbyi alejandra/Junior/eTransmitting on:?08/13/2024 01:57 PM EDT
--- OUTSIDE RECORDS SUMMARY | 2024-08-13 13:58 | XMS_ITS | Patient Health Record ---
Author Organization [facility] Address [address] [place] [address] Care Team Providers Care Death Claim Examiner Name Role Phone Balbir Schmid MD Primary Care Provider Chris Douglas Unavailable [phone] Allergies Allergen (clinical drug ingredient) Drug/Non Drug [...] Problem Acquired hammer toe of right foot (9409668410416214 ) Other hammer toe(s) (acquired), right foot (M20.41) Active confirmed Response to treatment, Improvemen t Problem Acquired hammer toe of left foot (3513928214017345 ) Other hammer toe(s) (acquired), left foot (M20.42) Active confirmed Response to treatment, Improvemen t Problem Polyneuropathy due to type 2 diabetes mellitus (486682821) Type 2 diabetes mellitus with diabetic polyneuropathy (E11.42) Active confirmed Vital Signs Blood pressure diastolic 70 mm Hg 05/10/2024 Height 5ft 11in in 05/10/2024 Blood pressure systolic 128 mm Hg 05/10/2024 Weight 210 lbs 05/10/2024 BMI 29.29 kg/m2 05/10/2024 Procedures Procedure Date Ordered Date Performed Result Body Sit e 92650-BORVKYR NAIL, 6 OR MORE 11/03/2023 N/A 70862-JDUH SKIN LESIONS, OVER 4 11/03/2023 N/A 04719-COYKKMR NAIL, 6 OR MORE 02/02/2024 N/A 11510-TQSG SKIN LESIONS, OVER 4 02/02/2024 N/A 57026-KACZAEV NAIL, 6 OR MORE 05/10/2024 N/A 93070-WKWB SKIN LESIONS, OVER 4 05/10/2024 N/A Encounters Encounter Location Date Provider Diagnosis [facility] [address] 09/23/2023 Chris Arambula [facility] [address] [place] [address] 08/09/2024 Chris Arambula [facility] [address] 11/03/2023 Chris Arambula Type 2 diabetes mellitus with diabetic polyneuropathy E11.42 and Tinea unguium B35.[address] [address] 02/02/2024 Chris Arambula Type 2 diabetes mellitus with diabetic polyneuropathy E11.42 ; Tinea unguium B35.1 ; Other hammer toe(s) (acquired), right foot M20.41 and Other hammer toe(s) (acquired), left foot M20.[address] [address] 05/10/2024 Chris Arambula Type 2 diabetes mellitus [...] Treatment Pending Test Test Name Order Date 63131-CSZPNWZ NAIL, 6 OR MORE 12/06/2021 97378-HRKEHAJ NAIL, 6 OR MORE 02/27/2022 27615-JARSGWL NAIL, 6 OR MORE 05/29/2022 87412-UVQXXCH NAIL, 6 OR MORE 08/28/2022 79416-UTWSYBV NAIL, 6 OR MORE 12/04/2022 08090-UUUURPQ NAIL, 6 OR MORE 03/12/2023 73108-QWVVIHO NAIL, 6 OR MORE 06/26/2023 37426-LQCZMLT NAIL, 6 OR MORE 11/03/2023 57403-CNRHWZT NAIL, 6 OR MORE 02/02/2024 04743-THOHANV NAIL, 6 OR MORE 05/10/2024 46771-CWNZ SKIN LESIONS, OVER 4 05/10/19 25 40433-YDWB SKIN LESIONS, OVER 4 02/02/20 24 96194-BTEJ SKIN LESIONS, OVER 4 11/03/19 24 20748-WSIF SKIN LESIONS, OVER 4 06/26/19 24 23812-REVK SKIN LESIONS, OVER 4 03/12/20 23 15050-AIPN SKIN LESIONS, OVER 4 12/05/19 23 31680-YULR SKIN LESIONS, OVER 4 08/29/19 23 15028-FHSK SKIN LESIONS, OVER 4 05/30/19 23 92831-YSZF SKIN LESIONS, 2 TO 4 02/28/20 22 64621-RNOV SKIN LESIONS, 2 TO 4 12/07/19 22 Next Appt Details Provider Name:Chris Arambula , 11/01/2024 04:00:00 PM, [facility] [address], [place], [address], Insurance Providers Payer Name Payer Address Payer Phone Subscriber Number Group Number Insured Name Patient Relationship to Insured Coverage Start Date Coverage End Date Medicare National Govt [facility] [address] [facility] [place] [address] [id number] Laron Morrison Self - patient is the insured [employer] Blue [employer] [address] [place] [address] [id number] Laron Morrison Self - patient is the insured Medical (General) History Medical History History ICD Code type II diabetes Polyneuropathy Alcohol abuse Anxiety Depression Hypertension Peripheral vascular disease Back,Hip,and Knee pain Chron's/ Colitis CAD Surgical History Surgery Date(Month/Year) cataract surgery
--- OUTSIDE RECORDS SUMMARY | 2024-08-13 13:58 | XMS_ITS | Clinical Summary ---
Author Organization [facility] Address [address] [place] [address] Care Team Providers Care Gmat Instructor Name Role Phone Unavailable Primary Care Provider [...] patient's age to complete this topic Insurance [facility]
--- OUTSIDE RECORDS SUMMARY | 2024-08-13 13:58 | XMS_ITS ---
Author Organization [facility] Address [address] [place] [address] Care Team Providers Care Juvenile Justice Officer Name Role Phone Balbir Schmid MD Primary Care Provider Chris Douglas Unavailable [phone] Allergies Allergen (clinical drug ingredient) Drug/Non Drug [...] Ordered Date Performed Result Body Sit e 60663-KLSXLWX NAIL, 6 OR MORE 05/10/2024 N/A 85303-UCFX SKIN LESIONS, OVER 4 05/10/2024 N/A Encounters Encounter Location Date Provider Diagnosis [facility] [address] [place] [address] [address] [place] [address] 05/10/2024 Chris Arambula Type 2 diabetes mellitus [...] Treatment Pending Test Test Name Order Date 10297-IRCICYC NAIL, 6 OR MORE 05/10/2024 88048-HHYJ SKIN LESIONS, OVER 4 05/10/19 25 Next Appt Details Follow Up: prn, Reason: Provider Name:Chris Yumiko MoncadaRalf , 11/01/2024 04:00:00 PM, [address] [facility], [address], [place], [address], Procedure Notes * Category Sub-Category Detail Notes [...] use of a nail nipper and/or dremel-type tool grinder set up operator gear, to a more viable healthy nail plate [...] to maintain effectiveness in symptomatic relief - 71156 Keratoma Treatment Parring or Cutting o f [...] instrumentation by the physician of record - 92247 Progress Notes * Laron ARNOLDDOB: [birth year] (68 yo M)Acc No.[id number]:05/10/2024 Progress Note Patient:?Laron ARNOLD Provider:?Chris Arambula DPM :1955???Age:68 Y???Sex:Male Gorge e:05/10/2024 Address:[address] [place], [place] [address] Pcp:Balbir Schmid MD Subjective: * Chief Complaints: [...] ?Exercise: no. ?Marital status: . 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 * Medications:?TakingAtorvasta tin Calcium Escitalopram Oxalate Folic [...] use of a nail nipper and/or dremel-type tool grinder set up operator gear, to a more viable healthy nail plate [...] to maintain effectiveness in symptomatic relief - 23888.?Keratoma Treatment:?Parring or Cutting of Benign Hyperkeratotic Lesion(s)?(-57) [...] instrumentation by the physician of record - 90079.? * Procedure Codes:?72460 DEBRI DE NAIL, 6 OR MORE, Modifiers: XS 00913 TRIM SKIN LESIONS, OVER 4, Modifiers: XS [...] for Ulisses roberts/Junior/Shi on:?08/13/2024 01:57 PM EDT History and Physical Notes * [...]
[2024-08-13 14:15] VITALS: BP 134/68; PULSE 102; O2SAT 93; BMI 29.3
== END 2024-08-13 14:45 | disposition home or self-care (01) ==
LOC: HO.HGI 13:56
PROVIDERS: PCP Family Medicine; Visit Provider Nurse Practitioner Family
DX: K70.30 Alcoholic cirrhosis of liver without ascites (principal); F10.10 Alcohol abuse, uncomplicated; R74.01 Elevation of levels of liver transaminase levels
CPT/HCPCS: 99213

== ENCOUNTER 2024-08-19 09:54 | Outpatient (AMB) | payer MEDICARE, SELFPAY ==
--- NOTE | 2024-08-19 10:08 | AM.OFFVISNUR ---
Intake Visit Reasons: Hep A & Hep B Series Allergies niacin [NIACIN] Adverse Reaction (Mild, Verified 08/13/24 14:00) RED FLUSH, SHAKING Immunizations Havrix (PF) 1,440 EMMANUEL unit/mL intramuscular syringe Performing Provider: DILLON Gunter Performing Location: [facility] Gastro[facility]ology Services Administered by: Mandi Arnold RN on 08/19/24 10:08 Dose Route Admin Location Dispensed Lot Number Expiration Date [facility][NOTE 3] Nursing Executive 1 mL IM Left Deltoid 1 mL [id number] 03/04/25 34069-869-29 GLAXOSMITHKLINE VIS Given Date VIS Provided VIS Publication Date 08/19/24 Single Vaccine 21 Eligibility Eligibility Date Funding Source Not VFC Eligible 08/19/24 Private Engerix-B (PF) 20 mcg/mL intramuscular suspension Performing Provider: DILLON Gunter Performing Location: [facility] Gastroenterology Services Administered by: Mandi Arnold RN on 08/19/24 10:08 Dose Route Admin Location Dispensed Lot Number Expiration Date [facility][NOTE 3] Nursing Executive 1 mL IM Left Deltoid 1 mL [id number] 10/26/26 68592-998-11 GLAXOSMITHKLINE VIS Given Date VIS Provided VIS Publication Date 08/19/24 Single Vaccine 22 Eligibility Eligibility Date Funding Source Not VFC Eligible 08/19/24 Private Assessment & Plan Assessment & Plan Orders: Orders Hepatitis A Adult Immunization Today Z23 - Encounter for immunization Hepatitis B Adult Immunization Today Z23 - Encounter for immunization Medications: New Engerix-B (PF) (hepatitis B virus vacc.rec(PF)) 1 mL IM ONCE 1 mL 0RF NS Z23 - Encounter for immunization Havrix (PF) (hepatitis A virus vaccine (PF)) 1 mL IM ONCE 1 mL 0RF NS Z23 - Encounter for immunization Coding Level of Care Code Established Pt Est Pt Level 1 (63302) Patient Type Established Medical Decision Making Straight Forward
--- OUTSIDE RECORDS SUMMARY | 2024-08-19 10:15 | XMS_ITS ---
Author Organization [facility] Address [address] [place] [address] Care Team Providers Care Yeast Tender Name Role Phone Sharmaine WALLACE, Balbir Primary Care Provider Chris Douglas Unavailable [phone] Encounters Encounter Location Date Provider Diagnosis [address] [address] 08/09/2024 Chris Arambula Plan Of Treatment Next Appt Details Provider Name:Chris Arambula , 11/01/2024 04:00:00 PM, [address], [address], Progress Notes * Laron ARNOLDDOB: [birth year] (68 yo M)Acc No.[id number]:08/09/2024 Progress Note Patient:?Laron ARNOLD Provider:?Chris Arambula DPM :1955???Age:68 Y???Sex:Male Gorge e:08/09/2024 Address:[address] [place], [place] [id number] Pcp:Balbir Schmid MD Subjective: * Chief Complaints: [...] Arambula DPM Date:?2024 Generated for Ulisses roberts/Junior/Shi on:?08/19/2024 10:15 AM EDT
--- OUTSIDE RECORDS SUMMARY | 2024-08-19 10:15 | XMS_ITS ---
Author [facility] Address [address] [place] [address] Care Team Providers Care Tractor Driver Teamster Name Role Phone Balbir Schmid MD Primary Care Provider Chris Douglas Unavailable [phone] Allergies Allergen (clinical drug ingredient) Drug/Non Drug [...] Ordered Date Performed Result Body Sit e 62867-DLVXEJR NAIL, 6 OR MORE 05/10/2024 N/A 24493-DTXR SKIN LESIONS, OVER 4 05/10/2024 N/A Encounters Encounter Location Date Provider Diagnosis [facility] [address] [place] [address] [address] [place] [address] 05/10/2024 Chris Arambula Type 2 diabetes mellitus [...] Treatment Pending Test Test Name Order Date 64899-GUOTSTZ NAIL, 6 OR MORE 05/10/2024 62013-NADZ SKIN LESIONS, OVER 4 05/10/19 25 Next Appt Details Follow Up: prn, Reason: Provider Name:Chris Yumiko MoncadaRalf , 11/01/2024 04:00:00 PM, [address] [facility], [address], [place], [address], Procedure Notes * Category Sub-Category Detail Notes [...] use of a nail nipper and/or dremel-type feed grinder, to a more viable healthy nail [...] to maintain effectiveness in symptomatic relief - 95768 Keratoma Treatment Parring or Cutting o f [...] instrumentation by the physician of record - 37891 Progress Notes * Laron ARNOLDDOB: [birth year] (68 yo M)Acc No.[id number]:05/10/2024 Progress Note Patient:?Laron ARNOLD Provider:?Chris Arambula DPM :1955???Age:68 Y???Sex:Male Gorge e:05/10/2024 Address:[address] [place], [place] [id number] Pcp:Balbir Schmid MD Subjective: * Chief Complaints: [...] ?Exercise: no. ?Marital status: . 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 * Medications:?TakingAtorvasta tin Calcium Escitalopram Oxalate Folic [...] use of a nail nipper and/or dremel-type feed grinder, to a more viable healthy nail [...] to maintain effectiveness in symptomatic relief - 29762.?Keratoma Treatment:?Parring or Cutting of Benign Hyperkeratotic Lesion(s)?(-57) [...] instrumentation by the physician of record - 69847.? * Procedure Codes:?64741 DEBRI DE NAIL, 6 OR MORE, Modifiers: XS 89227 TRIM SKIN LESIONS, OVER 4, Modifiers: XS [...] for Ulisses roberts/Junior/Shi on:?08/19/2024 10:15 AM EDT History and Physical Notes * HPI [...]
--- OUTSIDE RECORDS SUMMARY | 2024-08-19 10:16 | XMS_ITS | Patient Health Record ---
Author Organization [facility] Address [address] [place] [address] Care Team Providers Care Ball Rolling Machine Operator Name Role Phone Balbir Schmid MD Primary Care Provider Chris Douglas Unavailable [phone] Allergies Allergen (clinical drug ingredient) Drug/Non Drug [...] Problem Acquired hammer toe of right foot (6620817590659357 ) Other hammer toe(s) (acquired), right foot (M20.41) Active confirmed Response to treatment, Improvemen t Problem Acquired hammer toe of left foot (7931204629318103 ) Other hammer toe(s) (acquired), left foot (M20.42) Active confirmed Response to treatment, Improvemen t Problem Polyneuropathy due to type 2 diabetes mellitus (334878051) Type 2 diabetes mellitus with diabetic polyneuropathy (E11.42) Active confirmed Vital Signs Blood pressure diastolic 70 mm Hg 05/10/2024 Height 5ft 11in in 05/10/2024 Blood pressure systolic 128 mm Hg 05/10/2024 Weight 210 lbs 05/10/2024 BMI 29.29 kg/m2 05/10/2024 Procedures Procedure Date Ordered Date Performed Result Body Sit e 99978-JGZYOVN NAIL, 6 OR MORE 11/03/2023 N/A 46979-LPMJ SKIN LESIONS, OVER 4 11/03/2023 N/A 44599-DWMTFHU NAIL, 6 OR MORE 02/02/2024 N/A 37552-GWXI SKIN LESIONS, OVER 4 02/02/2024 N/A 09237-OYMYGIJ NAIL, 6 OR MORE 05/10/2024 N/A 70317-DJRL SKIN LESIONS, OVER 4 05/10/2024 N/A Encounters Encounter Location Date Provider Diagnosis [facility] [address] [place] [phone] 11/03/2023 Chrisann Arambula Type 2 diabetes mellitus with diabetic polyneuropathy E11.42 and Tinea unguium B35.1 [facility] [address] [place] [address] 02/02/2024 Chrisann Arambula Type 2 diabetes mellitus with diabetic polyneuropathy E11.42 ; Tinea unguium B35.1 ; Other hammer toe(s) (acquired), right foot M20.41 and Other hammer toe(s) (acquired), left foot M20.[address] [address] 05/10/2024 Chris Arambula Type 2 diabetes mellitus with diabetic polyneuropathy E11.42 ; Tinea unguium B35.1 ; Other hammer toe(s) (acquired), right foot M20.41 and Other hammer toe(s) (acquired), left foot M20.[address] [address] 09/23/2023 Chris Arambula [address] [address] 08/09/2024 Chris Arambula Assessments Encounter Date Diagnosis [...] Treatment Pending Test Test Name Order Date 83780-KCZRXAI NAIL, 6 OR MORE 12/06/2021 67307-GASGTHV NAIL, 6 OR MORE 02/27/2022 01806-EWCJYOA NAIL, 6 OR MORE 05/29/2022 78026-ZKGYBPW NAIL, 6 OR MORE 08/28/2022 24915-YNNHBWI NAIL, 6 OR MORE 12/04/2022 92557-NRTMBQZ NAIL, 6 OR MORE 03/12/2023 38890-STSCFDM NAIL, 6 OR MORE 06/26/2023 49094-SOQNPRY NAIL, 6 OR MORE 11/03/2023 76042-LFIAYQQ NAIL, 6 OR MORE 02/02/2024 60260-XFGPPYR NAIL, 6 OR MORE 05/10/2024 46445-UNUV SKIN LESIONS, OVER 4 05/10/19 25 06256-FRXB SKIN LESIONS, OVER 4 02/02/20 24 84133-PKGA SKIN LESIONS, OVER 4 11/03/19 24 87364-IIXI SKIN LESIONS, OVER 4 06/26/19 24 70132-WIVF SKIN LESIONS, OVER 4 03/12/20 23 16100-SEZZ SKIN LESIONS, OVER 4 12/05/19 23 92367-JLKU SKIN LESIONS, OVER 4 08/29/19 23 85876-EDJH SKIN LESIONS, OVER 4 05/30/19 23 69961-RNJW SKIN LESIONS, 2 TO 4 02/28/20 22 95793-TGTQ SKIN LESIONS, 2 TO 4 12/07/19 22 Next Appt Details Provider Name:Chris Arambula , 11/01/2024 04:00:00 PM, [facility] [address], [place], [address], Insurance Providers Payer Name Payer Address Payer Phone Subscriber Number Group Number Insured Name Patient Relationship to Insured Coverage Start Date Coverage End Date Medicare National Govt [facility] [address] [facility] [place] [address] [id number] Laron Morrison Self - patient is the insured [employer] [address] [place] [address] [id number] Laron Morrison Self - patient is the insured Medical (General) History Medical History History ICD Code type II diabetes Polyneuropathy Alcohol abuse Anxiety Depression Hypertension Peripheral vascular disease Back,Hip,and Knee pain Chron's/ Colitis CAD Surgical History Surgery Date(Month/Year) cataract surgery
--- OUTSIDE RECORDS SUMMARY | 2024-08-19 10:16 | XMS_ITS | Clinical Summary ---
Author Organization [facility] Facility Address [address] [place] [address] Care Team Providers Care Gemologist Name Role Phone Unavailable Primary Care Provider [...] patient's age to complete this topic Insurance [facility]
--- OUTSIDE RECORDS SUMMARY | 2024-08-19 10:16 | XMS_ITS ---
Author Organization [facility] Address [address] [place] [address] Care Team Providers Care Artist'S Manager Name Role Phone Balbir Schmid MD Primary Care Provider Chris Douglas Unavailable [phone] REASON FOR VISIT SD cx 08/09 Encounters Encounter Location Date Provider Diagnosis [facility] [address] [place] [address] 08/09/2024 Chris Arambual Plan Of Treatment Next Appt Details Provider Name:Chris Arambula , 11/01/2024 04:00:00 PM, [address] [facility], [address], [address], Progress Notes * Laron ARNOLDDOB: [birth year] (68 yo M)Acc No.[id number]:08/09/2024 Patient:?Laron ARNOLD :1955???Age:68 Y???Sex:Male Address:[address] [place] [address], [address] * true * Date:? Generated for Bobbyi alejandra/Junior/eTransmitting on:?08/19/2024 10:15 AM EDT
== END 2024-08-19 10:10 | disposition home or self-care (01) ==
LOC: HO.HGI 09:55
PROVIDERS: PCP Family Medicine; Visit Provider Nurse Practitioner Family
DX: Z23 Encounter for immunization (principal)

== ENCOUNTER → 2024-08-19 09:54 | Outpatient (BNVA) | payer MEDICARE, SELFPAY | PROVIDERS: PCP Family Medicine; Visit Provider Nurse Practitioner Family | DX: Z23 Encounter for immunization (principal) | CPT/HCPCS: 90471; 90632; 90746; 99211 ==

== ENCOUNTER 2024-08-31 08:43 | Outpatient (AMB) | payer MEDICARE, SELFPAY ==
--- NOTE | 2024-08-31 08:56 | A.OFFPC_ITS ---
Vital Signs 08/31/24 09:03 Height 5 ft 11 in Weight 203 lb 4 oz BMI 28.3 BP 120/60 Blood Pressure Location Rt brachial Position Sitting Respiration 14 Pulse 92 Pulse Source Pulse Oximeter Temp 97.8 F Temp Source Oral Pulse Oximetry (%) 95 Oxygen Delivery Method Room Air Intake Visit Reasons: f/u HTN, DM Intake Note: patient is scheduled to follow up on htn and dm patient also has lower extremity swelling he states he was hospitalized x2-3 weeks ago [employer] Head Required: No Allergies niacin [NIACIN] Adverse Reaction (Mild, Verified 08/31/24 09:01) RED FLUSH, SHAKING Tobacco use date assessed: 05/09/23 Dental Screening Dental Screen Date: 02/07/23 HPI f/u HTN, DM HPI Details 68 y/o male presents to f/u HTN, DM. Last A1c 05/03/24 6.1%. A1c today 08/31/24 is 8.0%. He is on glipizide 2.5mg, dulaglutide 3mg. He notes he feels his diet is okay. BP today 120/60, 92p. He is on spironolactone 25mg b.i.d, lisinopril 40mg, HCTZ 12.5mg daily, amlodipine 5mg daily. Pt notes he has not had a drink since his hospital visit a few weeks ago for lower extremity edema. [facility] Medical History Bleeding hemorrhoids Transaminitis Hemorrhoids without complication History of alcohol abuse Diabetes type 2, uncontrolled PVD (peripheral vascular disease) Diabetic polyneuropathy associated with type 2 diabetes mellitus Diabetes type 2, controlled Alcohol abuse Hypertension Neuropathy Diabetes Depression Anxiety Surgical History H/O colonoscopy Family History Mother No problems noted. Father No problems noted. Social History Household Members: Family Housing: House Do you presently have visiting nurse or other home services: No Alcohol intake: former Patient Tobacco Use Status: Current everyday Tobacco user Tobacco use type: Cigarette Cigarettes Per Day: 4 Years Smoked: 50 Packs per year/per ci.00 e-Cigarette/Vaping Use: Never Used Second Hand Smoke Exposure: Yes service: No Current occupational status: retired Current occupational exposures/hazards: No Cognitive needs: Yes (cane) Hearing needs: No Vision needs: Yes (reading glasses) Questionnaire Thrive Questionnaire Date Thrive assessed: 05/03/24 DELORES-7 AMB Questionnaire DELORES-7 Date DELORES - 7 assessed: 05/09/23 Source: Developed by Drs. Jeff Thibodeaux, Leda Gould, Chacorta Glass and colleagues, with an educational channing from [employer]. Review of Systems Const Denies chills, Denies fatigue, Denies fever(s), Denies headache(s) and Denies weakness ENT Denies dizziness and Denies headache(s) Card Denies dyspnea Resp Denies cough, Denies dyspnea, Denies wheezing and Denies other (shortness of breath) Musc Denies numbness and Denies tingling Neuro Denies dizziness, Denies headache(s), Denies numbness, Denies tingling and Denies weakness Psych Denies anxiety and Denies depression Endo Denies fatigue Aller/Immun Denies wheezing Physical exam (Primary Care) Vital Signs: Last Vital Signs Temp 97.8 F 08/31/24 09:03 Pulse 92 08/31/24 09:03 Resp 14 08/31/24 09:03 BP 120/60 08/31/24 09:03 Pulse Ox 95 08/31/24 09:03 Oxygen Delivery Method Room Air 08/31/24 09:03 BMI result Body Mass Index 28.3 Tobacco/Smoking Status: Tobacco use Status Tobacco use date assessed 05/09/23 08/31/24 08:56 Patient Tobacco Use Status Current everyday Tobacco 08/31/24 08:56 Tobacco use type Cigarette 08/31/24 08:56 e-Cigarette/Vaping Use Never Used 08/31/24 08:56 Thrive Assessment: Date of Thrive Assessment Date Thrive assessed 05/03/24 08/31/24 08:56 Const General: well developed; No acute distress Nutritional Appearance: well nourished Orientation/consciousness: patient oriented x3 HENMT Head: Yes normocephalic and Yes atraumatic Eyes General: appearance normal, both eyes and all related structures Pupils: Equal, round and reactive pupils present EOM: EOMs intact bilaterally Resp Effort & Inspection: normal respiratory effort Auscultation: clear to auscultation bilaterally Cardio Rate: regular rate Rhythm: regular rhythm Heart sounds: S1 normal heart sound present, S2 normal heart sound present, no gallops, no murmurs and no rubs Neuro General: patient oriented x3 and gait normal Cranial nerves: Yes Equal, round and reactive pupils present Psych Affect: normal affect Coding Level of Care Code Est Pt Level 4 (95024) Diagnoses Diabetes type 2, controlled E11.9 Essential hypertension I10 Alcohol abuse F10.10 Lower extremity edema R60.0 Alcoholic cirrhosis of liver without ascites K70.30 Ascites presence: without ascites Hepatic cirrhosis type: alcoholic cirrhosis Assessment & Plan Assessment & Plan (1) Diabetes type 2, controlled: Code(s): E11.9 - Type 2 diabetes mellitus without complications Category: Medical Plan: A1c?climbed?from?6.1%?to?8.0%. Patient?had?been?hospitalized?for?alcohol?abuse?and?cirrhosis/ascites Encouraged?him?to?work?on?a?diet?low?in?sugars?and?starches Continue?Trulicity?and?glipizide Will?add?back?some?metformin Follow-up?in?3?months (2) Essential hypertension: Code(s): I10 - Essential (primary) hypertension Category: Medical Plan: Blood?pressure?is?well?controlled.??Goal?is?less?than?140/90 Continue?current?medication?regimen (3) Alcohol abuse: Code(s): F10.10 - Alcohol abuse, uncomplicated Category: Social Hx Plan: Recent?hospitalization?for?alcohol?abuse?ascites Continue?working?at?abstinence Continue?diuretic Follow-up?with?Gastroenterology?as?recommended (4) Lower extremity edema: Code(s): R60.0 - Localized edema Category: Medical Plan: As?above,?continue?diuretic (5) Cirrhosis: Code(s): K74.60 - Unspecified cirrhosis of liver Category: Medical Qualifiers: Ascites presence: without ascites Hepatic cirrhosis type: alcoholic cirrhosis Qualified Code(s): K70.30 - Alcoholic cirrhosis of liver without ascites Plan: As above
[2024-08-31 09:03] VITALS: BP 120/60; PULSE 92; RESP 14; TEMP 36.6; O2SAT 95; BMI 28.3
--- OUTSIDE RECORDS SUMMARY | 2024-08-31 09:13 | XMS_ITS ---
Author Organization [facility] Address [address] [place] [address] Care Team Providers Care Cradle Slide Maker Name Role Phone Sharmaine WALLACE, Balbir Primary Care Provider Chris Douglas Unavailable [phone] Encounters Encounter Location Date Provider Diagnosis [address] [address] 08/09/2024 Chris Arambula Plan Of Treatment Next Appt Details Provider Name:Chris Arambula , 11/01/2024 04:00:00 PM, [address], [address], Progress Notes * Laron ARNOLDDOB: [birth year] (68 yo M)Acc No.[id number]:08/09/2024 Progress Note Patient:?Laron ARNOLD Provider:?Chris Arambula DPM :1955???Age:68 Y???Sex:Male Gorge e:08/09/2024 Address:[address] [place], [place] [id number] Pcp:Balbir Schmid MD Subjective: * Chief Complaints: [...] Arambula DPM Date:?2024 Generated for Ulisses roberts/Junior/Shi on:?08/31/2024 09:13 AM EDT
== END 2024-08-31 09:22 | disposition home or self-care (01) ==
LOC: HO.HMCFM 08:44
PROVIDERS: PCP Family Medicine; Visit Provider Family Medicine
DX: E11.9 Type 2 diabetes mellitus without complications (principal); K70.30 Alcoholic cirrhosis of liver without ascites; I10 Essential (primary) hypertension; F10.10 Alcohol abuse, uncomplicated; R60.0 Localized edema

== ENCOUNTER → 2024-08-31 08:43 | Outpatient (BNVA) | payer MEDICARE, SELFPAY | PROVIDERS: PCP Family Medicine; Visit Provider Family Medicine | DX: E11.9 Type 2 diabetes mellitus without complications (principal); I10 Essential (primary) hypertension; R60.0 Localized edema; K70.30 Alcoholic cirrhosis of liver without ascites; F10.10 Alcohol abuse, uncomplicated | CPT/HCPCS: 99212 ==

== ENCOUNTER 2024-09-15 14:41 | Outpatient (AMB) | payer MEDICARE, SELFPAY ==
--- OUTSIDE RECORDS SUMMARY | 2024-08-09 07:15 | XMS_ITS ---
Author Organization [facility] Address [address] [place] [address] Care Team Providers Care Construction Crew Member Name Role Phone Sharmaine WALLACE, Balbir Primary Care Provider Chris Douglas Unavailable [phone] Encounters Encounter Location Date Provider Diagnosis [address] [address] 08/09/2024 Chris Arambula Plan Of Treatment Next Appt Details Provider Name:Chris Arambula , 11/01/2024 04:00:00 PM, [address], [address], Progress Notes * Laron ARNOLDDOB: [birth year] (68 yo M)Acc No.[id number]:08/09/2024 Progress Note Patient: Katheryn Laron WALTON Provider: London Arambula DPM :1955 A ge:68 Y S ex:Male Date:08/09/2024 Address:[address] [place], [place] [phone] Pcp:Balbir Schmid MD Subjective: * Chief Complaints: [...] DPM Date: 0 08/09/2024 Generated for Ulisses rboerts/Junior/Shi on: 0 09/15/2024 04:53 PM EDT
[2024-09-15 14:50] VITALS: PULSE 116; O2SAT 97; BMI 28.0
--- NOTE | 2024-09-15 14:50 | MHC.OFFVIS ---
Vital Signs 09/15/24 14:50 Height 5 ft 11 in Weight 201 lb BMI 28.0 Pulse 116 H Pulse Source Pulse Oximeter Pulse Oximetry (%) 97 Intake Visit Reasons: Alcohol Use Disorder Allergies niacin (NIACIN) Adverse Reaction (Mild, Verified 09/15/24 14:50) RED FLUSH, SHAKING HPI HPI Alcohol Use Disorder: Details: He is for intake alcohol use disorder He uses multiple alcohol drinks daily,doesnt quantify over last 2-3 years worse. He denies OUI [facility] Medical History Bleeding hemorrhoids Transaminitis Hemorrhoids without complication History of alcohol abuse Diabetes type 2, uncontrolled PVD (peripheral vascular disease) Diabetic polyneuropathy associated with type 2 diabetes mellitus Diabetes type 2, controlled Alcohol abuse Hypertension Neuropathy Diabetes Depression Anxiety Surgical History H/O colonoscopy Family History Mother No problems noted. Father No problems noted. Social History Household Members: Family Housing: House Do you presently have visiting nurse or other home services: No Alcohol intake: former Patient Tobacco Use Status: Current everyday Tobacco user Tobacco use type: Cigarette Cigarettes Per Day: 4 Years Smoked: 50 e-Cigarette/Vaping Use: Never Used Second Hand Smoke Exposure: Yes service: No Current occupational status: retired Current occupational exposures/hazards: No Cognitive needs: Yes (cane) Hearing needs: No Vision needs: Yes (reading glasses) Review of Systems Const All systems reviewed & are unremarkable except as noted in HPI and below Physical Exam Vital Signs: Last Vital Signs Pulse 116 H 09/15/24 14:50 Pulse Ox 97 09/15/24 14:50 BMI result Body Mass Index 28.0 Const General: cooperative Orientation/consciousness: patient oriented x3 HEENT Head: Yes normal to inspection Mouth: Normal oral and palatal mucosa present Eyes General: appearance normal, both eyes and all related structures Pupils: Equal, round and reactive pupils present Resp Effort & Inspection: normal respiratory effort Cardio Rate: regular rate Rhythm: regular rhythm GI Palpation (GI): Soft to palpation and nontender General: Yes no CVA tenderness Back/Spine/Pelvis Back: no CVA tenderness Skin General skin exam: no rashes or lesions noted Neuro General: patient oriented x3 Cranial nerves: Yes CN's II-XII intact bilaterally and Yes Equal, round and reactive pupils present Extrem General: Yes normal to inspection Psych Appearance: grossly normal Assessment & Plan Assessment & Plan (1) Alcohol abuse: Comment: He is interested in treatment Code(s): F10.10 - Alcohol abuse, uncomplicated Category: Social Hx Plan Check labs and liver status. Naltrexone and groups/counselor. See as scheduled. Orders: Orders HIV Ab/Ag 09/15/24 F10.10 - Alcohol abuse, uncomplicated T Spot TB 09/15/24 F10.10 - Alcohol abuse, uncomplicated Hepatitis C Antibody 09/15/24 F10.10 - Alcohol abuse, uncomplicated Medications: New naltrexone 50 mg PO DAILY 30 tabs 2RF 30 days folic acid 1 mg PO DAILY 30 tabs 11RF 30 days thiamine HCl (vitamin B1) 100 mg PO DAILY 30 tabs 11RF 30 days acamprosate 666 mg (2 x 333 mg) PO TID 180 tabs 2RF 30 days Coding Level of Care Code New Pt Level 3 (95242) Diagnoses Alcohol abuse F10.10
== END 2024-09-15 15:45 | disposition home or self-care (01) ==
LOC: HO.HCC 14:42
PROVIDERS: PCP Family Medicine; Visit Provider Internal Medicine
DX: F10.10 Alcohol abuse, uncomplicated (principal)
CPT/HCPCS: 99203

== ENCOUNTER → 2024-09-15 14:41 | Outpatient (BNVA) | payer MEDICARE, SELFPAY | PROVIDERS: PCP Family Medicine; Visit Provider Internal Medicine | DX: F10.10 Alcohol abuse, uncomplicated (principal) | CPT/HCPCS: 99202 ==

== ENCOUNTER 2024-09-16 09:44 | Outpatient (AMB) | payer MEDICARE, SELFPAY ==
--- OUTSIDE RECORDS SUMMARY | 2024-08-09 07:15 | XMS_ITS ---
Author Organization [facility] Address [address] [place] [address] Care Team Providers Care Animal Attendant Name Role Phone Sharmaine WALLACE, Balbir Primary Care Provider Chris Douglas Unavailable [phone] Encounters Encounter Location Date Provider Diagnosis [address] [address] 08/09/2024 Chris Arambula Plan Of Treatment Next Appt Details Provider Name:Chris Arambula , 11/01/2024 04:00:00 PM, [address], [address], Progress Notes * Laron ARNOLDDOB: [birth year] (68 yo M)Acc No.[id number]:08/09/2024 Progress Note Patient: Katheryn Laron WALTON Provider: London Arambula DPM :1955 A ge:68 Y S ex:Male Date:08/09/2024 Address:[address] [place], [place] [phone] Pcp:Balbir Schmid MD Subjective: * Chief Complaints: [...] 08/09/2024 Generated for Ulisses roberts/Junior/Shi on: 0 09/16/2024 10:43 AM EDT
--- NOTE | 2024-09-16 10:00 | AM.OFFVISNUR ---
Intake Visit Reasons: Hep B #2 Allergies niacin (NIACIN) Adverse Reaction (Mild, Verified 09/15/24 14:50) RED FLUSH, SHAKING Immunizations Engerix-B (PF) 20 mcg/mL intramuscular suspension Performing Provider: DILLON Gunter Performing Location: [facility] Administered by: Mandi Arnold RN on 09/16/24 10:00 Dose Route Admin Location Dispensed Lot Number Expiration Date [facility] [employer] 1 mL IM Left Deltoid 1 mL [id number] 10/26/26 76490-724-58 [employer] Total Dispensed Waste 1 mL 0 % VIS Given Date VIS Provided VIS Publication Date 09/16/24 Single Vaccine 22 Eligibility Eligibility Date Funding Source Not [facility] Eligible 09/16/24 Private Assessment & Plan Assessment & Plan Orders: Orders Hepatitis B Adult Immunization Today Z23 - Encounter for immunization Coding Level of Care Code Established Pt Est Pt Level 1 (94397) Patient Type Established Medical Decision Making Straight Forward
== END 2024-09-16 10:01 | disposition home or self-care (01) ==
LOC: HO.HGI 09:45
PROVIDERS: PCP Family Medicine; Visit Provider Nurse Practitioner Family
DX: Z23 Encounter for immunization (principal)

== ENCOUNTER → 2024-09-16 09:44 | Outpatient (BNVA) | payer MEDICARE, SELFPAY | PROVIDERS: PCP Family Medicine; Visit Provider Nurse Practitioner Family | DX: Z23 Encounter for immunization (principal) | CPT/HCPCS: 90471; 90746; 99211 ==

== ENCOUNTER 2024-09-29 14:53 | Outpatient (AMB) | payer MEDICARE, SELFPAY ==
--- OUTSIDE RECORDS SUMMARY | 2024-08-09 07:15 | XMS_ITS ---
Author Organization [facility] Address [address] [place] [address] Care Team Providers Care Lung Puller Name Role Phone Sharmaine WALLACE, Balbir Primary Care Provider Chris Douglas Unavailable [phone] Encounters Encounter Location Date Provider Diagnosis [address] [address] 08/09/2024 Chris Arambula Plan Of Treatment Next Appt Details Provider Name:Chris Arambula , 11/01/2024 04:00:00 PM, [address], [address], Progress Notes * Laron ARNOLDDOB: [birth year] (68 yo M)Acc No.[id number]:08/09/2024 Progress Note Patient: Katheryn Laron WLATON Provider: London Arambula DPM :1955 A ge:68 Y S ex:Male Date:08/09/2024 Address:[address] [place], [place] [phone] Pcp:Balbir Schmid MD Subjective: * Chief Complaints: [...] 08/09/2024 Generated for Ulisses roberts/Junior/Shi on: 0 09/29/2024 03:17 PM EDT
--- OUTSIDE RECORDS SUMMARY | 2024-09-29 15:17 | XMS_ITS | Clinical Summary ---
Author Organization [facility] Facility Address [address] [place] [address] Care Team Providers Care Vaccine Customer Representative Name Role Phone Unavailable Primary Care Provider [...] patient's age to complete this topic Insurance [facility]
[2024-09-29 15:56] VITALS: BP 156/66; PULSE 97; O2SAT 98
--- NOTE | 2024-09-29 15:56 | A.OFFVISCC_ITS ---
Vital Signs 09/29/24 15:56 BP 156/66 H Pulse 97 Pulse Oximetry (%) 98 Oxygen Delivery Method Room Air Intake Visit Reasons: MAT Allergies niacin (NIACIN) Adverse Reaction (Mild, Verified 09/15/24 14:50) RED FLUSH, SHAKING HPI Comments Details: The patient is a 68-year-old male that presents for MAT visit. Reports decreased alcohol use, down to drinking a beer or two at night and acknowledges the naltrexone and acamprosate are helping with decreasing the urge to drink more. Reports neuropathy pain has worsened and thisis leading to intermittent symptoms of insomnia. Review of Systems Const All systems reviewed & are unremarkable except as noted in HPI and below PFS Medical History Bleeding hemorrhoids Transaminitis Hemorrhoids without complication History of alcohol abuse Diabetes type 2, uncontrolled PVD (peripheral vascular disease) Diabetic polyneuropathy associated with type 2 diabetes mellitus Diabetes type 2, controlled Alcohol abuse Hypertension Neuropathy Diabetes Depression Anxiety Surgical History H/O colonoscopy Family History Mother No problems noted. Father No problems noted. Social History Household Members: Family Housing: House Do you presently have visiting nurse or other home services: No Alcohol intake: former Patient Tobacco Use Status: Current everyday Tobacco user Tobacco use type: Cigarette Cigarettes Per Day: 4 Years Smoked: 50 e-Cigarette/Vaping Use: Never Used Second Hand Smoke Exposure: Yes service: No Current occupational status: retired Current occupational exposures/hazards: No Cognitive needs: Yes (cane) Hearing needs: No Vision needs: Yes (reading glasses) Assessment & Plan Assessment & Plan (1) Alcohol abuse: Comment: He is interested in treatment Code(s): F10.10 - Alcohol abuse, uncomplicated Category: Social Hx Plan The plan of care is to continue with naltrexone tablets 50 mg, daily and acamprosate 333 mg, two tablets TID. Follow-up in 2 weeks or sooner if needed. Patient Instructions: The plan is to continue with naltrexone tablets 50 mg, one tablet, daily and acamprosate 333 mg, 2 tablets, 3 times per day. Follow-up in 2 weeks or sooner if needed. Follow-up with PCP related to worsening neuropathy and call [facility] to connect to mental health services, phone number pro vided .
== END 2024-09-29 15:52 | disposition home or self-care (01) ==
LOC: HO.HCC 14:54
PROVIDERS: PCP Family Medicine; Visit Provider Clinical Nurse Specialist Psychiatric/Mental Health
DX: F10.10 Alcohol abuse, uncomplicated (principal)
CPT/HCPCS: 99213

== ENCOUNTER → 2024-09-29 14:53 | Outpatient (BNVA) | payer MEDICARE, SELFPAY | PROVIDERS: PCP Family Medicine; Visit Provider Clinical Nurse Specialist Psychiatric/Mental Health | DX: F10.10 Alcohol abuse, uncomplicated (principal); Z79.899 Other long term (current) drug therapy | CPT/HCPCS: 99212 ==

== ENCOUNTER 2024-10-13 14:55 | Outpatient (AMB) | payer MEDICARE, SELFPAY ==
--- OUTSIDE RECORDS SUMMARY | 2024-08-09 07:15 | XMS_ITS ---
Author Organization [facility] Address [address] [place] [address] Care Team Providers Care Rn Documentation Name Role Phone Sharmaine WALLACE, Balbir Primary Care Provider Chris Douglas Unavailable [phone] Encounters Encounter Location Date Provider Diagnosis [address] [address] 08/09/2024 Chris Arambula Plan Of Treatment Next Appt Details Provider Name:Chris Arambula , 11/01/2024 04:00:00 PM, [address], [address], Progress Notes * Laron ARNOLDDOB: [birth year] (68 yo M)Acc No.[id number]:08/09/2024 Progress Note Patient: Katheryn Laron WALTON Provider: London Arambula DPM :1955 A ge:68 Y S ex:Male Date:08/09/2024 Address:[address] [place], [place] [phone] Pcp:Balbir Schmid MD Subjective: * Chief Complaints: [...] 0 08/09/2024 Generated for Ulisses roberts/Junior/Shi on: 0 10/13/2024 03:26 PM EDT
[2024-10-13 15:02] VITALS: BP 140/80; PULSE 100; O2SAT 94; BMI 28.2
--- NOTE | 2024-10-13 15:02 | A.OFFVIS_ITS ---
Vital Signs 10/13/24 15:02 Height 5 ft 11 in Weight 202 lb BMI 28.2 BP 140/80 H Pulse 100 Pulse Oximetry (%) 94 Intake Visit Reasons: MAT Allergies niacin (NIACIN) Adverse Reaction (Mild, Verified 10/13/24 15:04) RED FLUSH, SHAKING Medication List - Last Reconciled 10/13/24 by Gaviota Carlisle NP-Radha acamprosate 666 mg (2 x 333 mg) PO TID 30 days amlodipine 5 mg PO DAILY 30 days escitalopram oxalate 20 mg PO DAILY finasteride 5 mg PO DAILY 90 days folic acid 1 mg PO DAILY 90 days folic acid 1 mg PO DAILY 30 days furosemide 40 mg PO DAILY glipizide ER 2.5 mg PO DAILY 30 days magnesium oxide 800 mg (2 x 400 mg (241.3 mg magnesium)) PO DAILY naltrexone 50 mg PO DAILY 30 days pyridoxine (vitamin B6) 50 mg PO DAILY spironolactone 25 mg PO BID thiamine HCl (vitamin B1) 100 mg PO DAILY 30 days thiamine HCl (vitamin B1) 100 mg PO DAILY HPI Comments Details: The patient is a 68-year-old male with a history of alcohol use disorder. He indicates recent success in abstaining from alcohol for four days but still struggles with occasional urges to drink. He recalls experiencing shakiness, which he associates with possible alcohol withdrawal. [facility] Medical History Bleeding hemorrhoids Transaminitis Hemorrhoids without complication History of alcohol abuse Diabetes type 2, uncontrolled PVD (peripheral vascular disease) Diabetic polyneuropathy associated with type 2 diabetes mellitus Diabetes type 2, controlled Alcohol abuse Hypertension Neuropathy Diabetes Depression Anxiety Surgical History H/O colonoscopy Family History Mother No problems noted. Father No problems noted. Social History (Updated 10/13/24 @ 16:56 by JAIME Friedman) Household Members: Family Housing: House Do you presently have visiting nurse or other home services: No Alcohol intake: former Comment: Will drink beers intermittently during the week Patient Tobacco Use Status: Current everyday Tobacco user Tobacco use type: Cigarette Cigarettes Per Day: 4 Years Smoked: 50 e-Cigarette/Vaping Use: Never Used Second Hand Smoke Exposure: Yes service: No Current occupational status: retired Current occupational exposures/hazards: No Cognitive needs: Yes (cane) Hearing needs: No Vision needs: Yes (reading glasses) Review of Systems Const All systems reviewed & are unremarkable except as noted in HPI and below Physical Exam Vital Signs: Last Vital Signs Pulse 100 10/13/24 15:02 BP 140/80 H 10/13/24 15:02 Pulse Ox 94 10/13/24 15:02 BMI result Body Mass Index 28.2 Const General: cooperative Psych Appearance: well kempt Mental Status: mental status grossly normal Speech and movement: Normal speech and movement present Affect: Sad affect present Attitude: cooperative Thought process: Normal thought process present Thought content: Normal thought content present Insight: Good insight present (Psych) Judgement: Good judgement present (Psych) Assessment & Plan Assessment & Plan (1) Alcohol abuse: Comment: He is interested in treatment Code(s): F10.10 - Alcohol abuse, uncomplicated Category: Social Hx Plan Patient is making progress with recent alcohol abstinence. Continue monitoring abstinence with potential clinical detox program recommended for withdrawal symptom management. Address medication adherence challenges by setting phone reminders for acamprosate and naltrexone dosing. Maintain thiamine and folic acid supplementation. Reassess in follow-up in two weeks. Medications: New escitalopram oxalate Take one tablet by mouth daily. 5 mg PO DAILY 30 tabs 0RF Patient Instructions: - Set phone reminders to help remember to take your medication on time. - Continue taking naltrexone 50 mg daily and acamprosate 333 mg, two tablets three times per day. - Start on escitalopram 5 mg daily. - Folic acid 1 daily and thiamine 100 mg daily. - Reach out if you experience withdrawal symptoms or any concerns. - Begin planning to attend inpatient detox for full cessation. - Follow through with attempts to connect with [facility] for additional support and notify me if further assistance is needed. Scribe Plan - Not visible on output: Patient was informed and verbally consented to the use of an ambient scribe for clinical note documentation during this visit. Coding Level of Care Code Est Pt Level 3 (71724) Diagnoses Alcohol abuse F10.10
--- OUTSIDE RECORDS SUMMARY | 2024-10-13 15:27 | XMS_ITS | Clinical Summary ---
Author Organization [facility] Facility Address [address] [place] [address] Care Team Providers Care Parts Sales Associate Name Role Phone Unavailable Primary Care Provider [...] of 1 - PCV) 12/06/2007 Influenza Vaccine (#1) 2024 Hepatitis B Vaccine Aged Out No longe r eligible based on patient's age to complete this topic Insurance [facility]
== END 2024-10-13 15:30 | disposition home or self-care (01) ==
LOC: HO.HCC 14:55
PROVIDERS: PCP Family Medicine; Visit Provider Clinical Nurse Specialist Psychiatric/Mental Health
DX: F10.10 Alcohol abuse, uncomplicated (principal)
CPT/HCPCS: 99213

== ENCOUNTER → 2024-10-13 14:55 | Outpatient (BNVA) | payer MEDICARE, SELFPAY | PROVIDERS: PCP Family Medicine; Visit Provider Clinical Nurse Specialist Psychiatric/Mental Health | DX: F10.10 Alcohol abuse, uncomplicated (principal); Z79.899 Other long term (current) drug therapy | CPT/HCPCS: 99212 ==

== ENCOUNTER 2024-10-28 15:15 | Outpatient (AMB) | payer MEDICARE, SELFPAY ==
--- OUTSIDE RECORDS SUMMARY | 2024-08-09 07:15 | XMS_ITS ---
Author Organization [facility] Address [address] [place] [address] Care Team Providers Care Product Marketing Executive Name Role Phone Sharmaine WALLACE, Balbir Primary Care Provider Chris Douglas Unavailable [phone] Encounters Encounter Location Date Provider Diagnosis [address] [address] 08/09/2024 Chris Arambula Plan Of Treatment Next Appt Details Provider Name:Chris Arambula , 11/01/2024 04:00:00 PM, [address], [address], Progress Notes * Laron ARNOLDDOB: [birth year] (68 yo M)Acc No.[id number]:08/09/2024 Progress Note Patient: Katheryn Laron WALTON Provider: London Arambula DPM :1955 A ge:68 Y S ex:Male Date:08/09/2024 Address:[address] [place], [place] [phone] Pcp:Balbir Schmid MD Subjective: * Chief Complaints: [...] 08/09/2024 Generated for Ulisses roberts/Junior/Shi on: 0 10/28/2024 03:20 PM EDT
--- OUTSIDE RECORDS SUMMARY | 2024-10-28 15:21 | XMS_ITS | Clinical Summary ---
Author Organization [facility] Address [address] [place], [place] [id number] Phone Care Team Providers Care Admin Prog Coord Name Role Phone Brissa Turner MD Primary Care Provide Social History Tobacco Use Types Packs/Day Years Used Date Smoking Tobacco: Never Assessed Sex and Gender Information Value Date Recorded Sex Assigned at Not on file Legal Sex Male 8:32 AM EST Gender Identity Not on file Sexual Orientation Not on file Plan of Treatment Not on file Medical Devices Not on file Insurance O Member Subscriber Plan / Payer (Ef fective 2020-Present) Name:Laron Arnold Relation to Subscriber:Self Name:Laron Arnold Payer ID:Not on file Type:HMO Address: [place] [id number] [place], [place] [address]O [facility] [place] [address] [place] [address] [facility] H[facility] Care Teams Admin Prog Coord Relationship Specialty Start Date End Date Brissa Turner MD [address] [place] [address] [address] [place] [address] PCP - General Internal Medicine 04/19/20 Additional Source Comments The information contained in this document represents components of the legal health record. It is not the complete legal health record.[facility]
--- OUTSIDE RECORDS SUMMARY | 2024-10-28 15:21 | XMS_ITS | Clinical Summary ---
Author Organization [facility] Facility Address [address] [place] [id number] Care Team Providers Care Educational Guidance Counselor Name Role Phone Unavailable Primary Care Provider [...] patient's age to complete this topic Insurance [facility]
[2024-10-28 15:22] VITALS: BP 137/78; PULSE 78; O2SAT 96; BMI 28.4
--- NOTE | 2024-10-28 15:22 | MHC.OFFVIS ---
Vital Signs 10/28/24 15:22 Height 5 ft 11 in Weight 204 lb BMI 28.4 BP 137/78 Pulse 78 Pulse Oximetry (%) 96 Intake Visit Reasons: MAT Allergies niacin (NIACIN) Adverse Reaction (Mild, Verified 10/28/24 15:24) RED FLUSH, SHAKING Medication List - Last Reconciled 10/28/24 by JAIME Friedman acamprosate 666 mg (2 x 333 mg) PO TID 30 days amlodipine 5 mg PO DAILY 30 days finasteride 5 mg PO DAILY 90 days folic acid 1 mg PO DAILY 30 days furosemide 40 mg PO DAILY glipizide ER 2.5 mg PO DAILY 30 days magnesium oxide 800 mg (2 x 400 mg (241.3 mg magnesium)) PO DAILY naltrexone 50 mg PO DAILY 30 days pyridoxine (vitamin B6) 50 mg PO DAILY spironolactone 25 mg PO BID thiamine HCl (vitamin B1) 100 mg PO DAILY 30 days HPI Comments Details: The patient is a 68-year-old male presents for a follow-up visit r/t AUD. Reports 2 weeks of no alcohol consumption and acknowledges the acamprosate and naltrexone are helping to reduce cravings. Denies use of opiates and other substances. [facility] Medical History Bleeding hemorrhoids Transaminitis Hemorrhoids without complication History of alcohol abuse Diabetes type 2, uncontrolled PVD (peripheral vascular disease) Diabetic polyneuropathy associated with type 2 diabetes mellitus Diabetes type 2, controlled Alcohol abuse Hypertension Neuropathy Diabetes Depression Anxiety Surgical History H/O colonoscopy Family History Mother No problems noted. Father No problems noted. Social History (Updated 10/13/24 @ 16:56 by JAIME Friedman) Household Members: Family Housing: House Do you presently have visiting nurse or other home services: No Alcohol intake: former Comment: Will drink beers intermittently during the week Patient Tobacco Use Status: Current everyday Tobacco user Tobacco use type: Cigarette Cigarettes Per Day: 4 Years Smoked: 50 e-Cigarette/Vaping Use: Never Used Second Hand Smoke Exposure: Yes service: No Current occupational status: retired Current occupational exposures/hazards: No Cognitive needs: Yes (cane) Hearing needs: No Vision needs: Yes (reading glasses) Review of Systems Const All systems reviewed & are unremarkable except as noted in HPI and below Physical Exam Vital Signs: Last Vital Signs Pulse 78 10/28/24 15:22 BP 137/78 10/28/24 15:22 Pulse Ox 96 10/28/24 15:22 BMI result Body Mass Index 28.4 Const General: cooperative Nutritional Appearance: average body habitus Limitations: no limitations Extrem Right lower extremity: edema Left lower extremity: edema Assessment & Plan Assessment & Plan (1) Alcohol use disorder, severe, dependence: Code(s): F10.20 - Alcohol dependence, uncomplicated Category: Medical Plan The plan of care is to continue with acamprosate 666 mg, two tablets TID and naltrexone 50 mg, daily. The dose of escitalopram increase from 5 mg to 10 mg, daily. Encouraged to follow up with calling [facility] or other [facility] mental health clinics to establish mental health services. Offered information on classroom technology coach and AA meetings, the patient declines. Medications: New escitalopram oxalate Take one tablet daily 10 mg PO DAILY 30 tabs 0RF 30 days Patient Instructions: - Continue on acamprosate and naltrexone as prescribed. - Start on increased dose of escitalopram 10 mg daily. - Follow up with mental health clinic to establish care. - Follow up in two weeks or sooner, if needed. - Call with questions, concerns, or to report side effects/new onset of symptoms to [facility]. - The patient verbalized understanding and agreed with plan of care. Coding Level of Care Code Est Pt Level 3 (63546) Diagnoses Alcohol use disorder, severe, dependence F10.20
== END 2024-10-28 15:44 | disposition home or self-care (01) ==
LOC: HO.HCC 15:15
PROVIDERS: PCP Family Medicine; Visit Provider Clinical Nurse Specialist Psychiatric/Mental Health
DX: F10.20 Alcohol dependence, uncomplicated (principal)
CPT/HCPCS: 99213

== ENCOUNTER → 2024-10-28 15:15 | Outpatient (BNVA) | payer MEDICARE, SELFPAY | PROVIDERS: PCP Family Medicine; Visit Provider Clinical Nurse Specialist Psychiatric/Mental Health | DX: F10.20 Alcohol dependence, uncomplicated (principal) | CPT/HCPCS: 99212 ==

== ENCOUNTER 2024-11-15 13:58 | Outpatient (AMB) | payer MEDICARE, SELFPAY ==
--- OUTSIDE RECORDS SUMMARY | 2024-08-09 07:15 | XMS_ITS ---
Author Organization [facility] Address [address] [place] [address] Care Team Providers Care Gasoline Finisher Name Role Phone Sharmaine WALLACE, Balbir Primary Care Provider Chris Douglas Unavailable [phone] Encounters Encounter Location Date Provider Diagnosis [address] [address] 08/09/2024 Chris Arambula Plan Of Treatment Next Appt Details Provider Name:Chris Arambula , 02/17/2025 01:00:00 PM, [address], [address], Progress Notes * Laron ARNOLDDOB: [birth year] (68 yo M)Acc No.[id number]:08/09/2024 Progress Note Patient: Katheryn Laron WALTON Provider: London Arambula DPM :1955 A ge:68 Y S ex:Male Date:08/09/2024 Address:[address] [place], [place] [phone] Pcp:Balbir Schmid MD Subjective: * Chief Complaints: [...] 08/09/2024 Generated for Ulisses roberts/Junior/Shi on: 0 11/15/2024 02:46 PM EDT
--- NOTE | 2024-11-15 14:03 | A.OFFVIS_ITS ---
Vital Signs 11/15/24 14:04 Height 5 ft 11 in Weight 211 lb BMI 29.4 BP 132/78 Pulse 94 Pulse Oximetry (%) 96 Intake Visit Reasons: MAT Allergies niacin (NIACIN) Adverse Reaction (Mild, Verified 11/15/24 14:05) RED FLUSH, SHAKING HPI HPI MAT: Details: He reports drinking 80% less than previous on both naltrexone and acamprosate daily. [facility] Medical History Bleeding hemorrhoids Transaminitis Hemorrhoids without complication History of alcohol abuse Diabetes type 2, uncontrolled PVD (peripheral vascular disease) Diabetic polyneuropathy associated with type 2 diabetes mellitus Diabetes type 2, controlled Alcohol abuse Hypertension Neuropathy Diabetes Depression Anxiety Surgical History H/O colonoscopy Family History Mother No problems noted. Father No problems noted. Social History Household Members: Family Housing: House Do you presently have visiting nurse or other home services: No Alcohol intake: former Comment: Will drink beers intermittently during the week Patient Tobacco Use Status: Current everyday Tobacco user Tobacco use type: Cigarette Cigarettes Per Day: 4 Years Smoked: 50 e-Cigarette/Vaping Use: Never Used Second Hand Smoke Exposure: Yes service: No Current occupational status: retired Current occupational exposures/hazards: No Cognitive needs: Yes (cane) Hearing needs: No Vision needs: Yes (reading glasses) Review of Systems Const All systems reviewed & are unremarkable except as noted in HPI and below Physical Exam Vital Signs: Last Vital Signs Pulse 94 11/15/24 14:04 BP 132/78 11/15/24 14:04 Pulse Ox 96 11/15/24 14:04 BMI result Body Mass Index 29.4 Const General: cooperative Assessment & Plan Assessment & Plan (1) Alcohol use disorder, severe, dependence: Comment: He is doing much better Code(s): F10.20 - Alcohol dependence, uncomplicated Category: Medical Plan: Continue naltrexone and acamprosate. See us as scheduled. Medications: Refilled acamprosate 666 mg (2 x 333 mg) PO TID 180 tabs 2RF 30 days naltrexone 50 mg PO DAILY 30 tabs 2RF 30 days Coding Level of Care Code Est Pt Level 3 (01633) Diagnoses Alcohol use disorder, severe, dependence F10.20
[2024-11-15 14:04] VITALS: BP 132/78; PULSE 94; O2SAT 96; BMI 29.4
--- OUTSIDE RECORDS SUMMARY | 2024-11-15 14:46 | XMS_ITS | Clinical Summary ---
Author Organization [facility] Address [address] [place], [place] [id number] Phone Care Team Providers Care Coal Chemist Name Role Phone Brissa Turner MD Primary [...] Arnold Payer ID:Not on file Type:HMO Address: [place] [id number] [place], [place] [address]O [facility] [place] [address] [address] HMO [facility] H[facility] Care Teams Coal Chemist Relationship Specialty Start Date End Date Brsisa Turner MD [address] [place] [address] 1 [place] [address] PCP - General Internal Medicine 04/19/20 Additional Source Comments The information contained in this document represents components of the legal health record. It is not the complete legal health record.[facility]
--- OUTSIDE RECORDS SUMMARY | 2024-11-15 14:46 | XMS_ITS | Clinical Summary ---
Author Organization [facility] Facility Address [address] [place] [address] Care Team Providers Care Ui Developer Name Role Phone Unavailable Primary Care Provider [...] patient's age to complete this topic Insurance [facility]
== END 2024-11-15 14:23 | disposition home or self-care (01) ==
LOC: HO.HCC 13:59
PROVIDERS: PCP Family Medicine; Visit Provider Internal Medicine
DX: F10.20 Alcohol dependence, uncomplicated (principal)
CPT/HCPCS: 99213

== ENCOUNTER → 2024-11-15 13:58 | Outpatient (BNVA) | payer MEDICARE, SELFPAY | PROVIDERS: PCP Family Medicine; Visit Provider Internal Medicine | DX: F10.20 Alcohol dependence, uncomplicated (principal); Z79.899 Other long term (current) drug therapy | CPT/HCPCS: 99212 ==

== ENCOUNTER 2025-01-04 09:04 | Outpatient (REF) | payer MEDICARE, SELFPAY ==
--- OUTSIDE RECORDS SUMMARY | 2024-08-09 07:15 | XMS_ITS ---
Author Organization [facility] Address [address] [place] [address] Care Team Providers Care Load Manager Name Role Phone Sharmaine WALLACE, Balbir Primary Care Provider Chris Douglas Unavailable [phone] Encounters Encounter Location Date Provider Diagnosis [address] [address] 08/09/2024 Chris Arambula Plan Of Treatment Next Appt Details Provider Name:Chris Arambula , 02/17/2025 01:00:00 PM, [address], [address], Progress Notes * Laron ARNOLDDOB: [birth year] (69 yo M)Acc No.[id number]:08/09/2024 Progress Note Patient: Katheryn Laron WALTON Provider: London Arambula DPM :1955 A ge:68 Y S ex:Male Date:08/09/2024 Address:[address] [place], [place] [phone] Pcp:Balbir Schmid MD Subjective: * Chief Complaints: [...] 08/09/2024 Generated for Ulisses roberts/Junior/Shi on: 1 09:57 AM EDT
--- NOTE | ~2025-01-04 | US_ITS ---
CLINICAL HISTORY: R97.20 - Elevated prostate specific antigen [PSA] US Urinary Bladder Comparison: None Findings: The urinary bladder is partially distended with wall thickening. 1.3 cm and 1.0 cm nodular echogenicities are seen in the left posterior urinary bladder. Prevoid volume: 147 mL. Postvoid volume: 40.7 mL Ureteral jets are visualized bilaterally. The prostate gland measures 4.6 x 3.2 x 3.9 cm with a total volume of 30 mL. IMPRESSION: 1. 1.3 cm and 1.0 cm nodular echogenicities in the left posterior urinary bladder. Recommend correlation with cystoscopy. 2. Normal postvoid residual. 3. Prostate gland volume 30 mL. This document has been electronically signed by: Juanito Castillo on 01/05/2025 07:29:58
--- OUTSIDE RECORDS SUMMARY | 2025-01-04 09:58 | XMS_ITS | Patient Health Record ---
Author Organization [facility] Address [address] [place] [address] Care Team Providers Care Natural Resource Economist Name Role Phone Balbir Schmid MD Primary Care Provider Chris Douglas Unavailable [phone] Allergies Allergen (clinical drug ingredient) Drug/Non Drug [...] (HGBA1C) 7.2 HEMOGLOBIN A1C (GLYCOHEMOGLO BIN) Reviewed date:11/01/2024 03:52:51 PM Interpretation: Performing Lab: Notes/Report: HEMOGLOBIN A1C % (HH) 7.2 Reason For Referral No Information Medications Medication SIG (Take, Route, Frequency, Duration) Notes Start Date End Date Status Gabapentin Not-Takin g Ciclopirox Olamine 0.77 % 1 application to affected area Externally to feet Twice a day; Duration: 30 days Not-Taking Extra Depth Orthopedic Shoes (1 Pair) with Customized Heat Molded Multidensity Innersoles (3 Pair) as directed Dx: NIDDM/Polyneuropathy (E11.42), Hammertoe Foot Deformity (M20.41,M20.42), Preulcerative Skin Lesion(s) (L85.1 Active Vitamin B1 Active Folic Acid Active Escitalopram Oxalate Active Atorvastatin Calcium Active Synjardy Not-Taking Trulicity Active Phospha 250 Neutral Active Magnesium Oxide Acti ve Lansoprazole Active Immunizations Vaccine Route Administration Date Status Comme nts Influenza Unknown 11/01/2024 Refused Social History Tobacco Use: Social History Observation Description Date Details (start date - stop date) Never Smoker NA - NA Tobacco use other than smoking: Question Answer Notes Are you an other tobacco user? No Tobacco Control (Standard) Question Answer Notes Tobacco use: Nonsmoker Additional Findings: Tobacco non-user Current no nsmoker AUDIT-C (Standard) Question Answer Notes Did you have a drink contain ing alcohol in the past year? Yes How often did you have a dri nk containing alcohol in the past year? Monthly or less (1 point) How many drinks did you have on a typical day when you were drinking in the past year? 1 or 2 drinks (0 point) How often did you have six o r more drinks on one occasion in the past year? Never (0 point) Points 1 Interpretation Negative Problems Problem Type SNOMED Code ICD Code Onset Dates Problem Status W/U Status Risk Notes Problem Acquired hammer toe of right foot (5696241095770783 ) Other hammer toe(s) (acquired), right foot (M20.41) Active confirmed Response to treatment, Improvemen t Problem Acquired hammer toe of left foot (5322006582226542 ) Other hammer toe(s) (acquired), left foot (M20.42) Active confirmed Response to treatment, Improvemen t Problem Polyneuropathy due to type 2 diabetes mellitus (238599623) Type 2 diabetes mellitus with diabetic polyneuropathy (E11.42) Active confirmed Vital Signs Blood pressure diastolic 70 mm Hg 11/01/2024 Height 5ft 11in in 11/01/2024 Blood pressure systolic 128 mm Hg 11/01/2024 Weight 202 lbs 11/01/2024 BMI 28.17 kg/m2 11/01/2024 Procedures Procedure Date Ordered Date Performed Result Body Sit e 33740-XOJCVPJ NAIL, 6 OR MORE 02/02/2024 N/A 90652-SACS SKIN LESIONS, OVER 4 02/02/2024 N/A 59523-EQORNPF NAIL, 6 OR MORE 05/10/2024 N/A 76385-ZMZO SKIN LESIONS, OVER 4 05/10/2024 N/A 36422-GSSFRHR NAIL, 6 OR MORE 11/01/2024 N/A 79587-XDOG SKIN LESIONS, OVER 4 11/01/2024 N/A Encounters Encounter Location Date Provider Diagnosis [address] [address] 02/02/2024 Chris Moncadaunier Type 2 diabetes mellitus with diabetic polyneuropathy E11.42 ; Tinea unguium B35.1 ; Other hammer toe(s) (acquired), right foot M20.41 and Other hammer toe(s) (acquired), left foot M20.[address] [address] 05/10/2024 Chris Arambula Type 2 diabetes mellitus with diabetic polyneuropathy E11.42 ; Tinea unguium B35.1 ; Other hammer toe(s) (acquired), right foot M20.41 and Other hammer toe(s) (acquired), left foot M20.[address] [address] 11/01/2024 Chris Arambula Type 2 diabetes mellitus with diabetic polyneuropathy E11.42 and Tinea unguium B35.[address] [address] 08/09/2024 Chris Arambula Assessments Encounter Date Diagnosis (ICD Code) Assessment Notes Treatment Notes Treatment Clinical Notes Section Notes 02/02/2024 Type 2 diabetes mellitus with diabetic polyneuropathy (ICD-10 - E11.42) 02/02/2024 Tinea unguium (ICD-10 - B35.1) 05/10/2024 Type 2 diabetes mellitus with diabetic polyneuropathy (ICD-10 - E11.42) 05/10/2024 Tinea unguium (ICD-10 - B35.1) 11/01/2024 Type 2 diabetes mellitus with diabetic polyneuropathy (ICD-10 - E11.42) 11/01/2024 Tinea unguium (ICD-10 - B35.1) 05/10/2024 Other [...] Treatment Pending Test Test Name Order Date 60763-AQEJVZZ NAIL, 6 OR MORE 12/06/2021 29063-GNLCDUM NAIL, 6 OR MORE 02/27/2022 62421-DVIEAIM NAIL, 6 OR MORE 05/29/2022 96850-KFGPHTZ NAIL, 6 OR MORE 08/28/2022 77158-FJSNPWM NAIL, 6 OR MORE 12/04/2022 55235-RYRLAUW NAIL, 6 OR MORE 03/12/2023 12100-APDVSWM NAIL, 6 OR MORE 06/26/2023 02276-AYRNVHQ NAIL, 6 OR MORE 11/03/2023 67073-DQSBZTY NAIL, 6 OR MORE 02/02/2024 16701-RVKGEED NAIL, 6 OR MORE 05/10/2024 86240-KHXJWJC NAIL, 6 OR MORE 11/01/2024 57714-ZTYA SKIN LESIONS, OVER 4 11/02/19 25 45217-WCTU SKIN LESIONS, OVER 4 05/10/19 25 11226-OKAS SKIN LESIONS, OVER 4 02/02/20 24 21891-YTDO SKIN LESIONS, OVER 4 11/03/19 24 17331-DKIS SKIN LESIONS, OVER 4 06/26/19 24 04010-GFUB SKIN LESIONS, OVER 4 03/12/20 23 04274-UAEE SKIN LESIONS, OVER 4 12/05/19 23 32922-ECMU SKIN LESIONS, OVER 4 08/29/19 23 25179-PALR SKIN LESIONS, OVER 4 05/30/19 23 20262-FSBA SKIN LESIONS, 2 TO 4 02/28/20 22 45948-UJSY SKIN LESIONS, 2 TO 4 12/07/19 22 Next Appt Details Provider Name:Chris Arambula , 02/17/2025 01:00:00 PM, [address] [facility], [address], [place], [address], Insurance Providers Payer Name Payer Address Payer Phone Subscriber Number Group Number Insured Name Patient Relationship to Insured Coverage Start Date Coverage End Date Medicare National Govt Sv[employer] [address] [place] [address] [id number] Laron Morrison Self - patient is the insured [employer] (app) [employer] [address] [place] [address] [phone] [id number] Laron Morrison Self - patient is the insured Medical (General) History Medical History History ICD Code type II diabetes Polyneuropathy Alcohol abuse Anxiety Depression Hypertension Peripheral vascular disease Back,Hip,and Knee pain Chron's/ Colitis CAD Surgical History Surgery Date(Month/Year) cataract surgery Hospitalization History Reason Date(Month/Year) [facility]- leg inflammation/swelling 08/30
--- OUTSIDE RECORDS SUMMARY | 2025-01-04 09:58 | XMS_ITS | Clinical Summary ---
Author Organization [facility] Address [address] [place], [place] [id number] Phone Care Team Providers Care Office Support Name Role Phone Brissa Turner MD Primary [...] Arnold Payer ID:Not on file Type:HMO Address: [place] [address] [place], [place] [address]O [facility] [place] [address] [place] [address] HMO [facility] H[facility] Care Teams Office Support Relationship Specialty Start Date End Date Brissa Turner MD [address] [place] [address] 1 [place] [address] PCP - General Internal Medicine 04/19/20 Additional Source Comments The information contained in this document represents components of the legal health record. It is not the complete legal health record.[facility]
--- OUTSIDE RECORDS SUMMARY | 2025-01-04 09:58 | XMS_ITS | Clinical Summary ---
Author Organization [facility] Facility Address [address] [place] [address] Care Team Providers Care Termite Helper Name Role Phone Unavailable Primary Care Provider [...] patient's age to complete this topic Insurance [facility] [place]
[2025-01-04 11:12] LABS: PSA,Total (Free>4and<10) 3.22 ng/mL (0.00-4.00)
== END 2025-01-04 09:05 | disposition home or self-care (01) ==
LOC: HO.HMGCX 09:04
PROVIDERS: PCP Family Medicine; Visit Provider Urology
DX: Z12.5 Encounter for screening for malignant neoplasm of prostate (principal); R97.20 Elevated prostate specific antigen [PSA]
CPT/HCPCS: 36415; 76857; 84153

== ENCOUNTER → 2025-01-04 09:14 | Outpatient (BNV) | payer MEDICARE, SELFPAY | PROVIDERS: PCP Family Medicine; Visit Provider Radiology Vascular & Interventional Radiology | DX: N32.9 Bladder disorder, unspecified (principal) | CPT/HCPCS: 76857 ==

== ENCOUNTER 2025-01-12 12:51 | Outpatient (AMB) | payer MEDICARE, SELFPAY ==
--- OUTSIDE RECORDS SUMMARY | 2024-08-09 07:15 | XMS_ITS ---
Author Organization [facility] Address [address] [place] [address] Care Team Providers Care Qlikview Developer Name Role Phone Sharmaine WALLACE, Balbir Primary Care Provider Chris Douglas Unavailable [phone] Encounters Encounter Location Date Provider Diagnosis [address] [address] 08/09/2024 Chris Arambula Plan Of Treatment Next Appt Details Provider Name:Chris Arambula , 02/17/2025 01:00:00 PM, [address], [address], Progress Notes * Laron ARNOLDDOB: [birth year] (69 yo M)Acc No.[id number]:08/09/2024 Progress Note Patient: Katheryn Laron WALTON Provider: London Arambula DPM :1955 A ge:68 Y S ex:Male Date:08/09/2024 Address:[address] [place], [place] [phone] Pcp:Balbir Schmid MD Subjective: * Chief Complaints: [...] 08/09/2024 Generated for Ulisses roberts/Junior/Shi on: 1 04:12 PM EDT
--- NOTE | 2025-01-12 12:54 | A.OFFVIS_ITS ---
Intake Visit Reasons: 6m/ PSA/ US Intake Note: Patient is present for 6M/PSA Urology Medication:FINASTERIDE,VITAMIN B6 Antibiotic Allergy:NIACIN Blood Thinner:NONE PVR: 243 MLS Imaging DONE 01/05/25 Ultrasound Labs done 01/04/25 : Total PSA 3.22 Lasting Floorworker Required: No Accompanied by: Self / Same As Patient Allergies niacin (NIACIN) Adverse Reaction (Mild, Verified 03/25/25 09:28) RED FLUSH, SHAKING HPI Comments Details: Laron is a pleasant male. He is a patient of Dr. Schmid. He is seen for the following urologic conditions - balanitis - elevated PSA - bladder outlet obstruction Four month follow-up On finasteride PSA falling UA 2+ blood, glucose LIZZIE 1+ prostate firmness right side Abdominal ultrasound with bladder wall thickening Elevated PSA PSA 09/20 3.0, 12/22 4.2, 06/22 4.6 19%, 01/22 3.2 Balanitis Prior episode Resolved after better diabetic control Is on Trulicity with current HbA1c 5.4 down from over 6.5 proximally 12 months ago Lower urinary tract symptoms Progressive weakness of stream Enlarged prostate PFSH Medical History Bleeding hemorrhoids Transaminitis Hemorrhoids without complication History of alcohol abuse PVD (peripheral vascular disease) Diabetic polyneuropathy associated with type 2 diabetes mellitus Diabetes type 2, controlled Alcohol abuse Hypertension Neuropathy Depression Anxiety Surgical History History of esophagogastroduodenoscopy (EGD) H/O colonoscopy Family History Mother No problems noted. Father No problems noted. Social History (Updated 03/25/25 @ 09:30 by Tabitha Peterson CMA) Household Members: Family Housing: House Do you presently have visiting nurse or other home services: No Alcohol intake: former Comment: Will drink beers intermittently during the week Patient Tobacco Use Status: Current everyday Tobacco user Tobacco use type: Cigarette Cigarettes Per Day: 4 Years Smoked: 50 e-Cigarette/Vaping Use: Never Used Second Hand Smoke Exposure: Yes service: No Current occupational status: retired Current occupational exposures/hazards: No Cognitive needs: Yes (cane) Hearing needs: No Vision needs: Yes (reading glasses) Review of Systems Const Denies chills and Denies fever(s) Card Reports no additional complaints and Denies syncope Resp Denies cough GI Denies abdominal pain and Denies heartburn Reports as per HPI and Denies change in libido Neuro Denies syncope Psych Denies change in libido Endo Denies change in libido Physical Exam Const General: cooperative, healthy appearing, comfortable and no acute distress Orientation/consciousness: patient oriented x3 HEENT Face and sinus: Yes normal facial exam Mouth: moist mucous membranes Neck Neck: Yes normal visual inspection, Yes full ROM and Yes trachea midline Chest Chest palpation & inspection: normal inspection of the chest Resp Effort & Inspection: normal respiratory effort, able to speak in complete sentences and no respiratory distress GI Inspection: Yes normal to inspection Back/Spine/Pelvis Cervical Spine: normal cervical lordosis Thoracic/Lumbar Spine: thoracic and lumbar spine normal to inspection Skin General skin exam: no rashes or lesions noted Neuro General: patient oriented x3, gait normal, tone normal and moves all extremities Extrem General: Yes normal to inspection and Yes capillary refill normal Office Procedures Post Void Residual Post Residual Void Post Void Residual (PVR): 243 25977-Wlyq Void Residual by ultrasound Results AMB Urinalysis, Automated UA Leukoctes 0 Awilda/uL Last Edit by Nichol Shepherd CCM on 01/12/25 13:21 UA Nitrite Negative Last Edit by Nichol Shepherd [facility] on 01/12/25 13:21 UA Urobilinogen 0.2 mg/dL Last Edit by Nichol Shepherd [facility] on 01/12/25 13:21 UA Protein 15 mg/dL Last Edit by Nichol Shepherd [facility] on 01/12/25 13:21 UA pH 6.5 Last Edit by Nichol Shepherd [facility] on 01/12/25 13:21 UA Blood 200 Guzman/uL Last Edit by Nichol Shepherd [facility] on 01/12/25 13:21 UA Specific [place] 1.005 Last Edit by Nichol Shepherd [facility] on 01/12/25 13:2 1 UA Ketone Negative Last Edit by Nichol Shepherd CCM on 01/12/25 13:21 UA Bilirubin 0 mg/dL Last Edit by RAMA Tejeda on 01/12/25 13:21 UA Glucose 1000 mg/dL Last Edit by RAMA Tejeda on 01/12/25 13:21 Results Reviewed Results Reviewed: Laboratory Last Values Urine pH (Auto) 6.5 01/12/25 13:20 Specific [place] (Auto) 1.005 01/12/25 13:20 Urine Protein (Auto) 15 mg/dL 01/12/25 13:20 Glucose (UA)(Auto) 1000 mg/dL 01/12/25 13:20 Urine Ketones (Auto) Negative 01/12/25 13:20 Urine Blood (Auto) 200 Guzman/uL 01/12/25 13:20 Urine Nitrite (Auto) Negative 01/12/25 13:20 Urine Bilirubin (Auto) 0 mg/dL 01/12/25 13:20 Urine Urobilinogen (Auto) 0.2 mg/dL 01/12/25 13:20 Leukocyte Esterase (Auto) 0 Awilda/uL 01/12/25 13:20 Assessment & Plan Assessment & Plan (1) Bladder outlet obstruction: Code(s): N32.0 - Bladder-neck obstruction Category: Medical (2) Elevated PSA: Code(s): R97.20 - Elevated prostate specific antigen [PSA] Category: Medical Plan Six-month follow-up lab work Continue finasteride Orders: Orders Urine Cytology 01/12/25 R31.29 - Other microscopic hematuria Prostate Specific Antigen 6 Months R97.20 - Elevated prostate specific antigen [PSA] Medications: Refilled finasteride 5 mg PO DAILY 90 tabs 1RF 90 days R97.20 - Elevated prostate specific antigen [PSA] Patient Instructions: This note is constructed using voice recognition software. While every effort has been made to ensure accuracy warranty clerk errors may have been included. Imaging studies, laboratory and physical exam results were discussed and reviewed in detail. No major barriers to patient understanding were identified. An opportunity to ask questions regarding the treatment plan was provided. All questions were answered. The patient expressed understanding and agreement with the above treatment plan. The patient is aware they should contact our office by phone for worsening of their current condition or the appearance of new urologic symptoms. Compliance is encouraged with any medications and followup testing that is ordered. It is a privilege to participate in the urologic care of your patient. If you have any questions or concerns regarding treatment for the above conditions, or other urologic issues, please do not hesitate to contact me. The office telephone contact is [phone]. Sincerely, Dr Harley Trujillo MD, [facility] - Urology Compassionate Specialist Care for the Genitourinary System Coding Level of Care Code Est Pt Level 3 (55177) Add On Problem Visit Only Diagnoses Bladder outlet obstruction N32.0 Elevated PSA R97.20 CPT Codes Post Residual Void - PVR CPT Code: 08331-Bhgj Void Residual by ultrasound ([id number])
--- OUTSIDE RECORDS SUMMARY | 2025-01-12 16:13 | XMS_ITS | Clinical Summary ---
Author Organization [facility] Address [address] [place], [place] [address] Phone Care Team Providers Care Screen Printing Equipment Setter Name Role Phone Brissa Turner MD Primary [...] Arnold Payer ID:Not on file Type:HMO Address: [place] [id number] [place], [place] [address]O [facility] [place] [address] [address] [place] [address] HMO [facility] H[facility] Care Teams Screen Printing Equipment Setter Relationship Specialty Start Date End Date Brissa Turner MD [address] [place] [address] 1 [place] [address] PCP - General Internal Medicine 04/19/20 Additional Source Comments The information contained in this document represents components of the legal health record. It is not the complete legal health record.[facility]
--- OUTSIDE RECORDS SUMMARY | 2025-01-12 16:13 | XMS_ITS | Patient Health Record ---
Author Organization [facility] Address [address] [place] [address] Care Team Providers Care Gaming Floor Supervisor Name Role Phone Balbir Schmid MD Primary Care Provider Chris Douglas Unavailable [phone] Allergies Allergen (clinical drug ingredient) Drug/Non Drug [...] Problem Acquired hammer toe of right foot ([id number] ) Other hammer toe(s) (acquired), right foot (M20.41) Active confirmed Response to treatment, Improvemen t Problem Acquired hammer toe of left foot ([id number] ) Other hammer toe(s) (acquired), left foot (M20.42) Active confirmed Response to treatment, Improvemen t Problem Polyneuropathy due to type 2 diabetes mellitus (518435138) Type 2 diabetes mellitus with diabetic polyneuropathy (E11.42) Active confirmed Vital Signs Blood pressure diastolic 70 mm Hg 11/01/2024 Height 5ft 11in in 11/01/2024 Blood pressure systolic 128 mm Hg 11/01/2024 Weight 202 lbs 11/01/2024 BMI 28.17 kg/m2 11/01/2024 Procedures Procedure Date Ordered Date Performed Result Body Sit e 36527-JQJRBIK NAIL, 6 OR MORE 02/02/2024 N/A 58192-XCKN SKIN LESIONS, OVER 4 02/02/2024 N/A 10234-NPLMFVX NAIL, 6 OR MORE 05/10/2024 N/A 81754-LSWQ SKIN LESIONS, OVER 4 05/10/2024 N/A 51032-TKYXUSF NAIL, 6 OR MORE 11/01/2024 N/A 74053-KPTT SKIN LESIONS, OVER 4 11/01/2024 N/A Encounters Encounter Location Date Provider Diagnosis [address] [address] 02/02/2024 Chris Moncadaunier Type 2 diabetes mellitus with diabetic polyneuropathy E11.42 ; Tinea unguium B35.1 ; Other hammer toe(s) (acquired), right foot M20.41 and Other hammer toe(s) (acquired), left foot M20.[address] [address] 05/10/2024 Chris Arambula Type 2 diabetes mellitus with diabetic polyneuropathy E11.42 ; Tinea unguium B35.1 ; Other hammer toe(s) (acquired), right foot M20.41 and Other hammer toe(s) (acquired), left foot M20.[address] [address] 11/01/2024 Chris Arambula Type 2 diabetes mellitus with diabetic polyneuropathy E11.42 and Tinea unguium B35.[address] [address] 08/09/2024 Chris Arambula Assessments Encounter Date Diagnosis [...] Treatment Pending Test Test Name Order Date 52393-EYAGIFY NAIL, 6 OR MORE 12/06/2021 29423-TVIVUQT NAIL, 6 OR MORE 02/27/2022 71137-LZNMXJQ NAIL, 6 OR MORE 05/29/2022 98634-KAIGPQZ NAIL, 6 OR MORE 08/28/2022 49992-OCEJJPO NAIL, 6 OR MORE 12/04/2022 51057-AXEPUDR NAIL, 6 OR MORE 03/12/2023 50541-RAMJXBX NAIL, 6 OR MORE 06/26/2023 02210-LZVFSML NAIL, 6 OR MORE 11/03/2023 09268-XOYEQJU NAIL, 6 OR MORE 02/02/2024 66745-JCRKEGZ NAIL, 6 OR MORE 05/10/2024 00256-RCKTXBD NAIL, 6 OR MORE 11/01/2024 42803-XQLS SKIN LESIONS, OVER 4 11/02/19 25 01042-HHJH SKIN LESIONS, OVER 4 05/10/19 25 89898-QHQE SKIN LESIONS, OVER 4 02/02/20 24 86636-QNRO SKIN LESIONS, OVER 4 11/03/19 24 09981-IMBB SKIN LESIONS, OVER 4 06/26/19 24 91154-BPZZ SKIN LESIONS, OVER 4 03/12/20 23 94698-ZMDX SKIN LESIONS, OVER 4 12/05/19 23 47939-AWED SKIN LESIONS, OVER 4 08/29/19 23 22545-IBUI SKIN LESIONS, OVER 4 05/30/19 23 58195-JFLT SKIN LESIONS, 2 TO 4 02/28/20 22 97532-YQYZ SKIN LESIONS, 2 TO 4 12/07/19 22 Next Appt Details Provider Name:Chris Arambula , 02/17/2025 01:00:00 PM, [address] [facility], [address], [place], [address], Insurance Providers Payer Name Payer Address Payer Phone Subscriber Number Group Number Insured Name Patient Relationship to Insured Coverage Start Date Coverage End Date Medicare National [employer] [address] [place] [address] [phone] [id number] Laron Morrison Self - patient is the insured [employer] [address] [place] [address] [id number] Laron Morrison Self - patient is the insured Medical (General) History Medical History History ICD Code type II diabetes Polyneuropathy Alcohol abuse Anxiety Depression Hypertension Peripheral vascular disease Back,Hip,and Knee pain Chron's/ Colitis CAD Surgical History Surgery Date(Month/Year) cataract surgery Hospitalization History Reason Date(Month/Year) [facility]- leg inflammation/swelling 08/30
== END 2025-01-12 13:48 | disposition home or self-care (01) ==
LOC: HO.HUSH 12:52
PROVIDERS: PCP Family Medicine; Visit Provider Urology
DX: N32.0 Bladder-neck obstruction (principal); R97.20 Elevated prostate specific antigen [PSA]
CPT/HCPCS: 99213; G2211

== ENCOUNTER 2025-01-12 12:51 | Outpatient (REF) | payer MEDICARE, SELFPAY | END 2025-01-12 12:52 | disposition home or self-care (01) | LOC: HO.LAB 12:51 | PROVIDERS: PCP Family Medicine; Visit Provider Urology | DX: R31.29 Other microscopic hematuria (principal); R97.20 Elevated prostate specific antigen [PSA] | CPT/HCPCS: 51798; 88112 ==

== ENCOUNTER 2025-01-20 08:34 | Outpatient (AMB) | payer MEDICARE, SELFPAY ==
--- OUTSIDE RECORDS SUMMARY | 2025-01-20 09:03 | XMS_ITS | Clinical Summary ---
Author Organization [facility] Address [address] [place], [place] [id number] Phone Care Team Providers Care Job Press Feeder Name Role Phone Brissa Turner MD Primary [...] Arnold Payer ID:Not on file Type:HMO Address: [place] [id number] [place], [place] [address]O [facility] [place] [address] [place] [address] HMO [facility] HMO Care Teams Job Press Feeder Relationship Specialty Start Date End Date Brissa Turner MD [address] [place] [address] [address] [place] [address] PCP - General Internal Medicine 04/19/20 Additional Source Comments The information contained in this document represents components of the legal health record. It is not the complete legal health record.[facility]
--- NOTE | 2025-01-20 09:08 | A.OFFPC_ITS ---
Vital Signs 01/20/25 09:15 01/20/25 09:18 Height 5 ft 11 in Weight 192 lb 8 oz BMI 26.8 BP 140/80 H 140/70 H Blood Pressure Location Lt brachial Lt brachial Position Sitting Sitting Respiration 16 Pulse 98 Pulse Source Pulse Oximeter Temp 97.9 F Temp Source Oral Pulse Oximetry (%) 96 Oxygen Delivery Method Room Air Intake Visit Reasons: mawv Intake Note: patient is scheduled for an extended exam with his pcp Gas Transfer Operator Required: No Allergies niacin (NIACIN) Adverse Reaction (Mild, Verified 01/20/25 09:09) RED FLUSH, SHAKING Medication List - Last Reconciled 01/20/25 by Balbir Schmid MD acamprosate 666 mg (2 x 333 mg) PO TID 30 days amlodipine 5 mg PO DAILY 30 days dulaglutide 3 mg (0.5 mL) subcut QWEEK 28 days escitalopram oxalate 10 mg PO DAILY 30 days finasteride 5 mg PO DAILY 90 days folic acid 1 mg PO DAILY 30 days furosemide 40 mg PO DAILY glipizide ER 2.5 mg PO DAILY 30 days magnesium oxide 800 mg (2 x 400 mg (241.3 mg magnesium)) PO DAILY naltrexone 50 mg PO DAILY 30 days spironolactone 25 mg PO BID thiamine HCl (vitamin B1) 100 mg PO DAILY 30 days Tobacco use date assessed: 01/20/25 Fall risk assessment: No Falls in past year Last assessed Fall Risk: 01/20/25 Dental Screening Dental Screen Date: 01/20/25 Did you have a dental visit in the last 12 months?: No Did you have a dental problem in the last 6 months where you did not have access to dental care?: Yes Was dental information given to patient?: No HPI mawv HPI Details 69 y/o male presents for an extended exa m with f/u labs and health [facility]. Blood pressure today 140/70, 98p. He is on spironolactone 25mg b.i.d, amlodipine 5mg daily. A1c today 9.1%. He is prescribed dulaglutide 3mg, glipizide 2.5mg daily. He notes he is also on metformin 250mg b.i.d. Ongoing alcohol abuse and he continues to f/u with addiction medicine. He notes ongoing tremors/shakes. Has stopped EtOH for about a week now. Follows up with urology for elevated PSA. [facility] Medical History Bleeding hemorrhoids Transaminitis Hemorrhoids without complication History of alcohol abuse Diabetes type 2, uncontrolled PVD (peripheral vascular disease) Diabetic polyneuropathy associated with type 2 diabetes mellitus Diabetes type 2, controlled Alcohol abuse Hypertension Neuropathy Diabetes Depression Anxiety Surgical History H/O colonoscopy Family History Mother No problems noted. Father No problems noted. Social History Household Members: Family Housing: House Do you presently have visiting nurse or other home services: No Alcohol intake: former Comment: Will drink beers intermittently during the week Patient Tobacco Use Status: Current everyday Tobacco user Tobacco use type: Cigarette Cigarettes Per Day: 4 Years Smoked: 50 e-Cigarette/Vaping Use: Never Used Second Hand Smoke Exposure: Yes service: No Current occupational status: retired Current occupational exposures/hazards: No Cognitive needs: Yes (cane) Hearing needs: No Vision needs: Yes (reading glasses) Questionnaire PHQ-9 Over the last 2 weeks, how often have you been bothered by any of the following problems? 1. Little interest or pleasure in doing things: not at all 2. Feeling down, depressed, or hopeless: not at all 3. Trouble falling or staying asleep, or sleeping too much: nearly every day 4. Feeling tired or having little energy: several days 5. Poor appetite or overeating: not at all 6. Feeling bad about yourself - or that you are a failure or have let yourself or your family down: not at all 7. Trouble concentrating on things, such as reading the newspaper or watching television: not at all 8. Moving or speaking so slowly that other people could have noticed. Or the opposite - being so fidgety or restless that you have been moving around a lot more than usual: several days 9. Thoughts that you would be better off or of hurting yourself in some way: not at all Total score: 5 Depression Screening Interpretation: Negative Depression Screening Done: Yes 21657 - PHQ-9 Billing: Yes Source: Developed by Drs. Jeff Thibodeaux, Leda Gould, Chacorta austin nd colleagues, with an educational channing from [employer]. Thrive Questionnaire Date Thrive assessed: 01/20/25 I am a: Patient What is your living situation today?: I have a steady place to live Within the past 12 months, did the food you bought not last and you didn't have the money to get more?: Never true Within the past 12 months, did you worry whether your food would run out before you got money to buy more?: Never true Do you have trouble paying for medicines?: No Do you have trouble getting transportation to medical appointments?: No Do you have trouble paying your heating and electricity bill?: No Do you have trouble taking care of your child, family member or friend?: No Do you have trouble with day-to-day activities such as bathing, preparing meals, shopping, managing finances, etc.?: Yes Are you currently unemployed and looking for a job?: No Are you interested in more education?: No Please select the resources that you would like help with: None Currently or been in a relationship where the following occur: No concerns reported THRIVE Score: 0 AUDIT C Alcohol Use Questionnaire (AUDIT-C) 1. How often do you have a drink containing alcohol?: 4 or more times a week 2. How many drinks containing alcohol do you have on a typical day when you are drinking?: 1 or 2 3. How often do you have six or more drinks on one occasion?: Never Total Score: 4 Score Reviewed/Action Taken: Yes DELORES-7 AMB Questionnaire DELORES-7 Date DELORES - 7 assessed: 01/20/25 Feeling nervous, anxious, or on edge: 0 = Not at all Not being able to stop or control worryin = Not at all Worrying too much about different things: 3 = Nearly every day Trouble relaxin = Several days Being so restless that it is hard to sit still: 1 = Several days Becoming easily annoyed or irritable: 2 = More than half the days Feeling afraid as if something awful might happen: 0 = Not at all Total DELORES-7 score (0-4 normal; 5-9 mild; 10-14 moderate; 15-21 severe): 7 Source: Developed by Drs. Jeff Thibodeaux, Leda Gould, Chacotra Glass and colleagues, with an educational channing from [employer]. DELORES-7 Assessment Billing DELORES-7 Assessment Tool: DELORES-7 Assessment 21340 Review of Systems Const Denies chills, Denies fatigue, Denies fever(s), Denies headache(s) and Denies weakness Eyes Denies change in vision ENT Denies dizziness, Denies headache(s), Denies hearing loss, Denies nasal congestion, Denies sinus pain, Denies sinus pressure and Denies sore throat Card Denies chest pain, Denies lightheadedness, Denies dyspnea and Denies other (palpitations) Resp Denies cough, Denies dyspnea and Denies wheezing GI Denies abdominal pain, Denies melena, Denies hematochezia, Denies change in bowel habits, Denies dyspepsia and Denies nausea Denies hematuria and Denies dysuria Musc Denies abnormal gait, Denies myalgias, Denies arthralgias, Denies numbness and Denies tingling Skin/Breast Denies rash, Denies unusual bruising and Denies wounds Neuro Denies abnormal gait, Denies dizziness, Denies headache(s), Denies memory loss, Denies numbness, Denies Sensory deficit (Neuro), Denies tingling and Denies weakness Psych Denies anxiety, Denies depression and Denies memory loss Endo Denies cold intolerance, Denies fatigue, Denies heat intolerance, Denies polydipsia and Denies polyuria José/Lymph Denies easy bleeding and Denies easy bruising Aller/Immun Denies wheezing Physical exam (Primary Care) Vital Signs: Last Vital Signs Temp 97.9 F 01/20/25 09:15 Pulse 98 01/20/25 09:15 Resp 16 01/20/25 09:15 BP 140/70 H 01/20/25 09:18 Pulse Ox 96 01/20/25 09:15 Oxygen Delivery Method Room Air 01/20/25 09:15 BMI result Body Mass Index 26.8 Tobacco/Smoking Status: Tobacco use Status Tobacco use date assessed 01/20/25 01/20/25 09:23 Patient Tobacco Use Status Current everyday Tobacco 01/20/25 09:23 Tobacco use type Cigarette 01/20/25 09:23 e-Cigarette/Vaping Use Never Used 01/20/25 09:23 PHQ-9: PHQ-9 Score PHQ-9: Total score 5 01/20/25 09:23 Depression Screening Interpretation: Negative Thrive Assessment: Date of Thrive Assessment Date Thrive assessed 01/20/25 01/20/25 09:23 Currently or been in a relationship where the following occur: No concerns reported Const General: no acute distress, well developed, alert and awake Nutritional Appearance: well nourished Orientation/consciousness: patient oriented x3 HENMT Head: Yes normocephalic and Yes atraumatic Ears: hearing grossly normal bilaterally and TM's normal bilaterally General nose exam: Normal external nose present and Normal nares present Mouth: Normal oral and palatal mucosa present and moist mucous membranes Teeth and gingiva: dentition normal Throat: Yes posterior oropharynx normal Eyes General: appearance normal, both eyes and all related structures Pupils: Equal, round and reactive pupils present and Pupil accommodation reflex normal EOM: EOMs intact bilaterally Neck Neck: Yes normal visual inspection, Yes no lymphadenopathy and Yes trachea midline Thyroid: Thyroid normal Carotids: no bruits Lymphatic: no lymphadenopathy noted Chest Chest palpation & inspection: normal inspection of the chest Resp Effort & Inspection: normal respiratory effort Auscultation: clear to auscultation bilaterally Cardio Rate: regular rate Rhythm: regular rhythm Heart sounds: S1 normal heart sound present, S2 normal heart sound present, no gallops, no murmurs and no rubs Bruits: no abdominal aortic bruits and no carotid bruits GI Palpation (GI): No Abdominal aortic bruit present, Soft to palpation, nontender, No hepatosplenomegaly present and No Rebound tenderness present Auscultation: normal bowel sounds General: Yes no CVA tenderness Back/Spine/Pelvis Back: no CVA tenderness Cervical Spine: cervical ROM normal and No Cervical spine tenderness Thoracic/Lumbar Spine: thoraco-lumbar ROM normal, No pain with thoraco-lumbar ROM, No thoracic spinal tenderness and No lumbar spinal tenderness Skin Lesions: no lesions Rashes: no rashes Trauma: no lacerations or abrasions Wounds: no wounds Nails: normal Neuro General: patient oriented x3 Cranial nerves: Yes Equal, round and reactive pupils present Cognition (Neuro): normal cognition Gait exam (Neuro): gait abnormal Motor exam (neuro): 5/5 motor strength present throughout Sensory Exam: No Sensory deficit (Neuro) Deep tendon reflexes (DTR's): Right patellar reflex intensity grade: 2+ and Left patellar reflex intensity grade: 2+ Extrem General: Yes normal to inspection and No edema Psych Appearance: grossly normal Affect: normal affect Attitude: cooperative Thought process: Normal thought process present Coding Level of Care Code Est Pt Level 4 (04748) Diagnoses Essential hypertension I10 Alcohol use disorder, severe, dependence F10.20 Elevated PSA R97.20 Screening for colon cancer Z12.11 Cognitive changes R41.89 Memory changes R41.3 Diabetes mellitus with neuropathy E11.40 Annual physical exam Z00.00 Unsteady gait R26.81 Additional Codes DELORES-7 Assessment Billing - DELORES-7 Assessment Tool: DELORES-7 Assessment 30150 ([id number]) PHQ-9 - 09590 - PHQ-9 Billing: Yes ([id number]) Assessment & Plan Assessment & Plan (1) Essential hypertension: Code(s): I10 - Essential (primary) hypertension Category: Medical Plan: Blood pressure is somewhat elevated today. Increasing amlodipine Some of this may be secondary to alcohol withdrawal but patient says he stopped drinking about a week ago Increase hydration (2) Alcohol use disorder, severe, dependence: Code(s): F10.20 - Alcohol dependence, uncomplicated Category: Medical Plan: Patient says he had started drinking again but has discontinued this about a week ago. He was averaging about a half pt per day or a little more Still feeling shaky and agitated in the mornings [facility] He has not seen them lately and does not have an appointment for about a month or more I have made a referral back to the [facility] and patient agrees to go back to see them. (3) Elevated PSA: Code(s): R97.20 - Elevated prostate specific antigen [PSA] Category: Medical Plan: Patient is followed by Dr. Trujillo and has appointment (4) Screening for colon cancer: Code(s): Z12.11 - Encounter for screening for malignant neoplasm of colon Category: Medical Plan: Has appointment for colonoscopy with Dr. Ceballos (5) Cognitive changes: Code(s): R41.89 - Other symptoms and signs involving cognitive functions and awareness Category: Medical Plan: Mini cog shows some deficits in memory and significant deficit in cognition Referring him to [facility] (6) Memory changes: Code(s): R41.3 - Other amnesia Category: Medical Plan: As above (7) Diabetes mellitus with neuropathy: Code(s): E11.40 - Type 2 diabetes mellitus with diabetic neuropathy, unspecified Category: Medical Plan: A1c 9.1% Patient says he is taking Trulicity, glipizide and metformin as previously prescribed. Refilled these and increased Trulicity from 3 mg weekly to 4.5 mg weekly Patient gets annual diabetic retinal exam UTD (8) Annual physical exam: Code(s): Z00.00 - Encounter for general adult medical examination without abnormal findings Category: Medical Plan: 69-year-old male presents for an extended exam Encouraged healthy diet with active lifestyle and plenty of exercise Mini cog score was 2. Remembered 2/3 memory words and clock significantly abnormal. See scanned document. Get up and go test was 11 seconds. However he showed significant unsteadiness which is likely due to neuropathy as well as possibly some ataxia from chronic alcohol use. Recommended he use a cane. (9) Unsteady gait: Code(s): R26.81 - Unsteadiness on feet Category: Medical Plan: As above Unsteady gait and recommended a cane Orders: Orders [facility] [place]. Panel Fast Today Z00.00 - Encounter for general adult medical examination without abnormal findings Microalbumin, Random (w Creat) Today I10 - Essential (primary) hypertension Vitamin B12 and Folate Today E53.8 - Deficiency of other specified B group vitamins TSH reflex Free T4 Today Z00.00 - Encounter for general adult medical examination without abnormal findings UA CC w/rflx Micro + Cult Today Z00.00 - Encounter for general adult medical examination without abnormal findings AMB Hemoglobin A1c Today E11.40 - Type 2 diabetes mellitus with diabetic neuropathy, unspecified Complete Blood Count Auto Diff Today Z00.00 - Encounter for general adult medical examination without abnormal findings Lipid Panel Today Z00.00 - Encounter for general adult medical examination without abnormal findings Prostate Specific Antigen Scr Today Z12.5 - Encounter for screening for malignant neoplasm of prostate Referrals Neuropsychiatry Referral R41.89 - Other symptoms and signs involving cognitive functions and awareness Addiction Medicine Referral F10.20 - Alcohol dependence, uncomplicated Medications: New metformin 250 mg (1/2 x 500 mg) PO BIDWMEAL 90 tabs 3RF 90 days Changed From amlodipine 5 mg PO DAILY 30 days 30 tabs 8RF To amlodipine 10 mg PO DAILY 30 tabs 8RF 30 days From dulaglutide 3 mg (0.5 mL) subcut QWEEK 28 days 2 mL 3RF To dulaglutide 4.5 mg (0.5 mL) subcut QWEEK 2 mL 3RF 28 days Refilled glipizide ER Take at breakfast 2.5 mg PO DAILY 30 tabs 2RF 30 days
[2025-01-20 09:15] VITALS: BP 140/80; PULSE 98; RESP 16; TEMP 36.6; O2SAT 96; BMI 26.8
[2025-01-20 09:18] VITALS: BP 140/70
== END 2025-01-20 09:52 | disposition home or self-care (01) ==
LOC: HO.HMCFM 08:35
PROVIDERS: PCP Family Medicine; Visit Provider Family Medicine
DX: I10 Essential (primary) hypertension (principal); F10.20 Alcohol dependence, uncomplicated; E11.40 Type 2 diabetes mellitus with diabetic neuropathy, unspecified; R97.20 Elevated prostate specific antigen [PSA]; Z12.11 Encounter for screening for malignant neoplasm of colon; R41.89 Other symptoms and signs involving cognitive functions and awareness; R41.3 Other amnesia; R26.81 Unsteadiness on feet

== ENCOUNTER → 2025-01-20 08:34 | Outpatient (BNVA) | payer MEDICARE, SELFPAY | PROVIDERS: PCP Family Medicine; Visit Provider Family Medicine | DX: Z00.00 Encounter for general adult medical examination without abnormal findings (principal); I10 Essential (primary) hypertension; F10.20 Alcohol dependence, uncomplicated; R97.20 Elevated prostate specific antigen [PSA]; R41.89 Other symptoms and signs involving cognitive functions and awareness; R41.3 Other amnesia; E11.40 Type 2 diabetes mellitus with diabetic neuropathy, unspecified; R26.81 Unsteadiness on feet | CPT/HCPCS: 83036; 96127; 99212 ==

== ENCOUNTER 2025-01-21 09:33 | Outpatient (REF) | payer MEDICARE, SELFPAY ==
--- OUTSIDE RECORDS SUMMARY | 2023-09-25 07:15 | XMS_ITS ---
Author Organization [facility] Address [address] [place] [address] Care Team Providers Care Power Shovel Engineer Name Role Phone Sharmaine WALLACE, Balbir Primary Care Provider Chris Douglas Unavailable [phone] Encounters Encounter Location Date Provider Diagnosis [address] [address] 09/25/2023 Chris Arambula Plan Of Treatment Next Appt Details Provider Name:Chris Arambula , 02/17/2025 01:00:00 PM, [address], [address], Progress Notes * Laron ARNOLDDOB: [birth year] (69 yo M)Acc No.[id number]:09/25/2023 Progress Note Patient: Katheryn Laron WALTON Provider: London Arambula DPM :1955 A ge:67 Y S ex:Male Date:09/25/2023 Address:[address] [place], [place] [id number] Pcp:Balbir Schmid MD Subjective: * Chief Complaints: [...] 09/25/2023 Generated for Ulisses roberts/Junior/Shi on: 1 10:32 AM EDT
--- OUTSIDE RECORDS SUMMARY | 2024-08-09 07:15 | XMS_ITS ---
Author Organization [facility] Address [address] [place] [address] Care Team Providers Care Emotional Support Teacher Name Role Phone Sharmaine WALLACE, Balbir Primary Care Provider Chris Douglas Unavailable [phone] Encounters Encounter Location Date Provider Diagnosis [address] [address] 08/09/2024 Chris Arambula Plan Of Treatment Next Appt Details Provider Name:Chris Arambula , 02/17/2025 01:00:00 PM, [address], [address], Progress Notes * Laron ARNOLDDOB: [birth year] (69 yo M)Acc No.[id number]:08/09/2024 Progress Note Patient: Katheryn Laron WALTON Provider: London Arambula DPM :1955 A ge:68 Y S ex:Male Date:08/09/2024 Address:[address] [place], [place] [phone] Pcp:Balbir Schmid MD Subjective: * Chief Complaints: [...] 08/09/2024 Generated for Ulisses roberts/Junior/Shi on: 1 10:32 AM EDT
--- OUTSIDE RECORDS SUMMARY | 2025-01-21 10:33 | XMS_ITS | Clinical Summary ---
Author Organization [facility] Address [address] [place], [place] [id number] Phone Care Team Providers Care Acid Tester Name Role Phone Brissa Turner MD Primary [...] Arnold Payer ID:Not on file Type:HMO Address: [place] [id number] [place], [place] [address]O [facility] [place] [address] [place] [address] HMO [facility] H[facility] Care Teams Acid Tester Relationship Specialty Start Date End Date Brissa Turner MD [address] [place] [address] 1 [place] [address] PCP - General Internal Medicine 04/19/20 Additional Source Comments The information contained in this document represents components of the legal health record. It is not the complete legal health record.[facility]
--- OUTSIDE RECORDS SUMMARY | 2025-01-21 10:33 | XMS_ITS | Clinical Summary ---
Author Organization [facility] Address [address] [place] [address] Care Team Providers Care Structural Metal Worker Name Role Phone Unavailable Primary Care Provider [...] patient's age to complete this topic Insurance [facility]
--- OUTSIDE RECORDS SUMMARY | 2025-01-21 10:33 | XMS_ITS | Patient Health Record ---
Author Organization [facility] [place] Address [address] [place] [address] Care Team Providers Care Tailings Dam Pumper Name Role Phone Balbir Schmid MD Primary Care Provider Chris Douglas Unavailable [phone] Allergies Allergen (clinical drug ingredient) Drug/Non Drug Allergy documented on EMR Reaction Allergy Type Onset Date Status Information temporarily unavailable Niacin Unknown Drug Allergy Active Results Component Value Reference Range Notes HEMOGLOBIN A1C (GLYCOHEMOGLO BIN) Reviewed date:11/01/2024 03:52:51 [...] Problem Status W/U Status Risk Notes Problem Information temporarily unavailable Other hammer toe(s) (acquired), right foot (M20.41) Active confirmed Response to treatment, Improvemen t Problem Information temporarily unavailable Other hammer toe(s) (acquired), left foot (M20.42) Active confirmed Response to treatment, Improvemen t Problem Information temporarily unavailable Type 2 diabetes mellitus with diabetic polyneuropathy (E11.42) Active confirmed Vital Signs Blood pressure diastolic 70 mm Hg 11/01/2024 Height 5ft 11in in 11/01/2024 Blood pressure systolic 128 mm Hg 11/01/2024 Weight 202 lbs 11/01/2024 BMI 28.17 kg/m2 11/01/2024 Procedures Procedure Date Ordered Date Performed Result Body Sit e 09252-SVCNJUU NAIL, 6 OR MORE 02/02/2024 N/A 51321-JZZA SKIN LESIONS, OVER 4 02/02/2024 N/A 44541-ITELDBC NAIL, 6 OR MORE 05/10/2024 N/A 94952-SUGS SKIN LESIONS, OVER 4 05/10/2024 N/A 39739-IKBZUTI NAIL, 6 OR MORE 11/01/2024 N/A 17628-WTYS SKIN LESIONS, OVER 4 11/01/2024 N/A Encounters Encounter Location Date Provider Diagnosis [facility] [address] [address] 02/02/2024 Chris Arambula Type 2 diabetes mellitus with diabetic polyneuropathy E11.42 ; Tinea unguium B35.1 ; Other hammer toe(s) (acquired), right foot M20.41 and Other hammer toe(s) (acquired), left foot M20.42 [facility] [address] [address] 05/10/2024 Chrisann Arambula Type 2 diabetes mellitus with diabetic polyneuropathy E11.42 ; Tinea unguium B35.1 ; Other hammer toe(s) (acquired), right foot M20.41 and Other hammer toe(s) (acquired), left foot M20.[address] [address] 11/01/2024 Chris Arambula Type 2 diabetes mellitus with diabetic polyneuropathy E11.42 and Tinea unguium B35.[address] [address] 08/09/2024 Chris Arambula Assessments Encounter Date Diagnosis [...] Treatment Pending Test Test Name Order Date 48464-TJFBFRQ NAIL, 6 OR MORE 12/06/2021 61971-QAQMKSP NAIL, 6 OR MORE 02/27/2022 36539-ORXRBYC NAIL, 6 OR MORE 05/29/2022 59335-OQHCPXW NAIL, 6 OR MORE 08/28/2022 46946-RLIFUWO NAIL, 6 OR MORE 12/04/2022 87837-KOYTMWR NAIL, 6 OR MORE 03/12/2023 70458-FGFUNOQ NAIL, 6 OR MORE 06/26/2023 00727-SSDQWXA NAIL, 6 OR MORE 11/03/2023 46185-TNETHKU NAIL, 6 OR MORE 02/02/2024 63794-VQJHVSH NAIL, 6 OR MORE 05/10/2024 55436-KFOZYGV NAIL, 6 OR MORE 11/01/2024 06694-BKXL SKIN LESIONS, OVER 4 11/02/19 25 15833-KVOG SKIN LESIONS, OVER 4 05/10/19 25 21604-QABG SKIN LESIONS, OVER 4 02/02/20 24 62611-EROG SKIN LESIONS, OVER 4 11/03/19 24 61299-RMLH SKIN LESIONS, OVER 4 06/26/19 24 93743-IWVB SKIN LESIONS, OVER 4 03/12/20 23 34401-PQSC SKIN LESIONS, OVER 4 12/05/19 23 94550-RQUE SKIN LESIONS, OVER 4 08/29/19 23 49876-RETJ SKIN LESIONS, OVER 4 05/30/19 23 39572-RAII SKIN LESIONS, 2 TO 4 02/28/20 22 67196-JCCD SKIN LESIONS, 2 TO 4 12/07/19 22 Next Appt Details Provider Name:Chris Calderon Ralf , 02/17/2025 01:00:00 PM, [address] [facility] [address], [place], [address], Insurance Providers Payer Name Payer Address Payer Phone Subscriber Number Group Number Insured Name Patient Relationship to Insured Coverage Start Date Coverage End Date Medicare National Govt [facility] [address] [place] [address] [id number] Laron Morrison Self - patient is the insured Med [employer] [facility] [address] [place] [address] [id number] Laron Morrison Self - patient is the insured Medical (General) History Medical History History ICD Code type II diabetes Polyneuropathy Alcohol abuse Anxiety Depression Hypertension Peripheral vascular disease Back,Hip,and Knee pain Chron's/ Colitis CAD Surgical History Surgery Date(Month/Year) cataract surgery Hospitalization History Reason Date(Month/Year) [facility]- leg inflammation/swelling 08/30
[2025-01-21 11:31] LABS: MANUAL DIFF FLAG NO
[2025-01-21 11:36] LABS: Hematocrit 46.0 % (42.0-52.0); Hemoglobin 15.9 g/dl (14.0-18.0); Imm Gran Abs Auto 0.04 X10*3/uL (0.00-0.03); Imm Gran Pct Auto 0.5 % (0.0-0.4); Lymphocytes Absolute Auto 2.0 X10*3/uL (1.2-4.9); Mean Corpuscular HGB Conc 34.6 g/dl (31.0-36.0); Mean Corpuscular Hemoglobin 33.3 pg (27.0-33.0); Mean Corpuscular Volume 96.2 fL (80.0-98.0); NRBC Abs Auto 0.000 X10*3/uL (0.0-0.012); NRBC Pct Auto 0.0 /100WBC (0.0-0.2); Red Blood Count 4.78 X10*6/uL (4.60-5.80); White Blood Count 8.7 X10*3/uL (4.8-10.8)
[2025-01-21 12:07] LABS: Platelet Count 84 X10*3/uL (160-400)
[2025-01-21 12:46] LABS: Folate 11.0 ng/mL (> or = 4.0); Vitamin B12 905 pg/mL (200-900)
[2025-01-21 12:50] LABS: Alanine Aminotransferase 23 U/L (0-40); Albumin Level 3.5 g/dL (3.5-5.0); Alkaline Phosphatase 140 U/L (39-117); Anion Gap 15 (12-20); Aspartate Amino Transferase 77 U/L (5-37); Blood Urea Nitrogen 10 mg/dL (9-16); Calcium 9.3 mg/dL (8.4-10.2); Carbon Dioxide 30 mmol/L (22-29); Chloride 98 mmol/L (96-108); Cholesterol 386 mg/dL (<200); Estimated Glomerular Filt Rate > 60; HDL Cholesterol 34 mg/dL (>40); Potassium 3.5 mmol/L (3.3-5.1); Sodium 139 mmol/L (135-145); Total Protein 8.6 g/dL (6.5-8.0); Triglycerides 289 mg/dL (<150)
[2025-01-21 12:53] LABS: Appearance Urine Cloudy; PH 7.0 (5.0-9.0); Specific Gravity - Urine 1.015 (1.005-1.025); UMIC TRIGGER UACC YES
[2025-01-21 12:59] LABS: Microalbum/Creatinine Ratio Ur 112.5 ug/mg cr (<30)
[2025-01-21 13:02] LABS: UACC Culture Trigger YES
[2025-01-22 03:58] LABS: HIV Num 1 0.07 S/CO (0.00-0.99); ~HepC Num1 0.15 S/CO (0.00-0.79); ~Hepatitis C Antibody Nonreactive (Nonreactive)
[2025-01-24 07:44] LABS: TS Negative Control Passed; TS Panel A 0; TS Panel B 0; TS Positive Control Passed; TSpotTB Negative (Negative)
== END 2025-01-21 09:34 | disposition home or self-care (01) ==
LOC: HO.WFDLDS 09:33
PROVIDERS: Referring Provider Internal Medicine; Visit Provider Family Medicine
DX: Z00.00 Encounter for general adult medical examination without abnormal findings (principal); Z11.4 Encounter for screening for human immunodeficiency virus [HIV]; Z11.1 Encounter for screening for respiratory tuberculosis; Z11.59 Encounter for screening for other viral diseases; E53.8 Deficiency of other specified B group vitamins; F10.10 Alcohol abuse, uncomplicated; I10 Essential (primary) hypertension; Z12.5 Encounter for screening for malignant neoplasm of prostate
CPT/HCPCS: 36415; 80053; 80061; 81001; 81003; 82043; 82570; 82607; 82746; 84153; 84443; 85025; 86481; 86803; 87086; 87088; 87186; 87389

== ENCOUNTER 2025-02-09 15:36 | Outpatient (AMB) | payer MEDICARE, SELFPAY ==
--- OUTSIDE RECORDS SUMMARY | 2023-09-25 06:15 | XMS_ITS ---
Author Organization [facility] Address [address] [place] [address] Care Team Providers Care Set Rider Name Role Phone Sharmaine WALLACE, Balbir Primary Care Provider Chris Douglas Unavailable [phone] Encounters Encounter Location Date Provider Diagnosis [address] [id number] 09/25/2023 Chris Arambula Plan Of Treatment Next Appt Details Provider Name:Chris Arambula , 02/17/2025 01:00:00 PM, [address], [id number], Progress Notes * Laron ARNOLDDOB: [birth year] (69 yo M)Acc No.[id number]:09/25/2023 Progress Note Patient: Katheryn Laron WALTON Provider: London Arambula DPM :1955 A ge:67 Y S ex:Male Date:09/25/2023 Address:[address] [place], [place] [id number] Pcp:Balbir Schmid MD Subjective: * Chief Complaints: * * Medical History: Objective: * Vitals: Assessment: Plan: * Treatment: * Images: * The named appointment provid er may or may not be the originator of this progress note, and it is not deemed complete until electronically signed by the appointment provider. Sign off status: Pending * Provider: London rAambula DPM Date: 0 09/25/2023 Generated for Ulisses roberts/Junior/Shi on: 1 04/11/2024 06:42 PM EST
--- OUTSIDE RECORDS SUMMARY | 2024-08-09 06:15 | XMS_ITS ---
Author Organization [facility] Address [address] [place] [address] Care Team Providers Care Account Planner Name Role Phone Sharmaine WALLACE, Balbir Primary Care Provider Chris Douglas Unavailable [phone] Encounters Encounter Location Date Provider Diagnosis [address] [address] 08/09/2024 Chris Arambula Plan Of Treatment Next Appt Details Provider Name:Chris Arambula , 02/17/2025 01:00:00 PM, [address], [address], Progress Notes * Laron ARNOLDDOB: [birth year] (69 yo M)Acc No.[id number]:08/09/2024 Progress Note Patient: Katheryn Laron WALTON Provider: London Arambula DPM :1955 A ge:68 Y S ex:Male Date:08/09/2024 Address:[address] [place], [place] [phone] Pcp:Balbir Schmid MD Subjective: * Chief Complaints: * * Medical History: Objective: * Vitals: Assessment: Plan: * Treatment: * Images: * The named appointment provid er may or may not be the originator of this progress note, and it is not deemed complete until electronically signed by the appointment provider. Sign off status: Pending * Provider: London Arambula DPM Date: 0 08/09/2024 Generated for Ulisses roberts/Junior/Shi on: 1 04/11/2024 06:42 PM EST
--- NOTE | 2025-02-09 15:44 | A.OFFPC_ITS ---
Vital Signs 02/09/25 15:49 Height 5 ft 11 in Weight 200 lb 6 oz BMI 27.9 BP 138/60 Blood Pressure Location Lt brachial Position Sitting Respiration 16 Pulse 102 H Pulse Source Pulse Oximeter Temp 97.8 F Temp Source Oral Pulse Oximetry (%) 95 Oxygen Delivery Method Room Air Intake Visit Reasons: D/C from [facility] on 02/06 abscess on upper left leg Intake Note: patient is scheduled for ed follow up for left leg abscess Cash Management Associate Required: No Allergies niacin (NIACIN) Adverse Reaction (Mild, Verified 02/09/25 15:48) RED FLUSH, SHAKING Medication List - Last Reconciled 02/09/25 by Balbir Schmid MD acamprosate 666 mg (2 x 333 mg) PO TID 30 days amlodipine 10 mg PO DAILY 30 days dulaglutide 4.5 mg (0.5 mL) subcut QWEEK 28 days escitalopram oxalate 10 mg PO DAILY 30 days finasteride 5 mg PO DAILY 90 days folic acid 1 mg PO DAILY 30 days furosemide 40 mg PO DAILY glipizide ER 2.5 mg PO DAILY 30 days magnesium oxide 800 mg (2 x 400 mg (241.3 mg magnesium)) PO DAILY metformin 250 mg (1/2 x 500 mg) PO BIDWMEAL 90 days naltrexone 50 mg PO DAILY 30 days spironolactone 25 mg PO BID thiamine HCl (vitamin B1) 100 mg PO DAILY 30 days Tobacco use date assessed: 01/20/25 Dental Screening Dental Screen Date: 01/20/25 HPI D/C from [facility] on 02/06 abscess on upper left leg HPI Details 69 y/o male [facility] 02/06/25 discharge date same day for L inner thigh pain. L inner thigh with abscess was seen. Drained pus, was given Tylenol, doxycycline. Pt notes pain and redness has been improving. [facility] Medical History Bleeding hemorrhoids Transaminitis Hemorrhoids without complication History of alcohol abuse Diabetes type 2, uncontrolled PVD (peripheral vascular disease) Diabetic polyneuropathy associated with type 2 diabetes mellitus Diabetes type 2, controlled Alcohol abuse Hypertension Neuropathy Diabetes Depression Anxiety Surgical History H/O colonoscopy Family History Mother No problems noted. Father No problems noted. Social History Household Members: Family Housing: House Do you presently have visiting nurse or other home services: No Alcohol intake: former Comment: Will drink beers intermittently during the week Patient Tobacco Use Status: Current everyday Tobacco user Tobacco use type: Cigarette Cigarettes Per Day: 4 Years Smoked: 50 e-Cigarette/Vaping Use: Never Used Second Hand Smoke Exposure: Yes service: No Current occupational status: retired Current occupational exposures/hazards: No Cognitive needs: Yes (cane) Hearing needs: No Vision needs: Yes (reading glasses) Questionnaire Thrive Questionnaire Date Thrive assessed: 05/03/24 DELORES-7 AMB Questionnaire DELORES-7 Date DELORES - 7 assessed: 01/20/25 Source: Developed by Drs. Jeff Thibodeaux, Leda Gould, Chacorta Glass and colleagues, with an educational channing from [employer]. Review of Systems Const Denies chills, Denies fatigue, Denies fever(s), Denies headache(s) and Denies weakness ENT Denies dizziness and Denies headache(s) Card Denies dyspnea Resp Denies cough, Denies dyspnea, Denies wheezing and Denies other (shortness of breath) Musc Denies numbness and Denies tingling Neuro Denies dizziness, Denies headache(s), Denies numbness, Denies tingling and Denies weakness Psych Denies anxiety and Denies depression Endo Denies fatigue Aller/Immun Denies wheezing Physical exam (Primary Care) Vital Signs: Last Vital Signs Temp 97.8 F 02/09/25 15:49 Pulse 102 H 02/09/25 15:49 Resp 16 02/09/25 15:49 BP 138/60 02/09/25 15:49 Pulse Ox 95 02/09/25 15:49 Oxygen Delivery Method Room Air 02/09/25 15:49 BMI result Body Mass Index 27.9 Tobacco/Smoking Status: Tobacco use Status Tobacco use date assessed 01/20/25 02/09/25 15:45 Patient Tobacco Use Status Current everyday Tobacco 02/09/25 15:45 Tobacco use type Cigarette 02/09/25 15:45 e-Cigarette/Vaping Use Never Used 02/09/25 15:45 Thrive Assessment: Date of Thrive Assessment Date Thrive assessed 05/03/24 02/09/25 15:45 Const General: well developed; No acute distress Nutritional Appearance: well nourished Orientation/consciousness: patient oriented x3 HENMT Head: Yes normocephalic and Yes atraumatic Eyes General: appearance normal, both eyes and all related structures Pupils: Equal, round and reactive pupils present EOM: EOMs intact bilaterally Resp Effort & Inspection: normal respiratory effort Neuro General: patient oriented x3 and gait normal Cranial nerves: Yes Equal, round and reactive pupils present Psych Affect: normal affect Coding Level of Care Code Est Pt Level 3 (49813) Diagnoses Abscess of lower extremity L02.419 Assessment & Plan Assessment & Plan (1) Abscess of lower extremity: Code(s): L02.419 - Cutaneous abscess of limb, unspecified Category: Medical Plan: Patient went to [facility] emergency department on 02/06/2025, for abscess at left inner thigh which he says had been going on for about a week. Area of fluctuance was seen and ultrasound confirmed abscess. Incision and drainage was performed. He did have some difficulty with hemostasis but this was achieved with prolonged pressure. Covered with a nonstick dressing and patient was given doxycycline 100 mg b.i.d. x7 days. He still does have some erythema though this has receded from marker lines placed at the ED Changing dressing and he does not note any further purulent drainage Given he has poorly controlled diabetes and wound is healing but slowly, will have him extend his doxycycline course. Will send another 7 day course. He will call if not essentially resolved by the time he finishes it or if it worsens at any time with increased redness, swelling or drainage. Medications: New doxycycline hyclate 100 mg PO BID 14 tabs 0RF 7 days
[2025-02-09 15:49] VITALS: BP 138/60; PULSE 102; RESP 16; TEMP 36.6; O2SAT 95; BMI 27.9
--- OUTSIDE RECORDS SUMMARY | 2025-02-09 18:43 | XMS_ITS | Clinical Summary ---
Author Organization [facility] Facility Address [address] [place] [address] Care Team Providers Care Hebrew Teacher Name Role Phone Unavailable Primary Care Provider [...] patient's age to complete this topic Insurance [facility]
--- OUTSIDE RECORDS SUMMARY | 2025-02-09 18:43 | XMS_ITS | Patient Health Record ---
Author Organization [facility] Address [address] [place] [address] Care Team Providers Care Treasury Specialist Name Role Phone Balbir Schmid MD Primary Care Provider Chris Douglas Unavailable [phone] Allergies Allergen (clinical drug ingredient) Drug/Non Drug [...] Problem Acquired hammer toe of right foot ([id number] ) Other hammer toe(s) (acquired), right foot (M20.41) Active confirmed Response to treatment, Isauro dixon Problem Acquired hammer toe of left foot (5217556076156194 ) Other hammer toe(s) (acquired), left foot (M20.42) Active confirmed Response to treatment, Isauro t Problem Polyneuropathy due to type 2 diabetes mellitus (437746378) Type 2 diabetes mellitus with diabetic polyneuropathy (E11.42) Active confirmed Vital Signs Blood pressure diastolic 70 mm Hg 11/01/2024 Height 5ft 11in in 11/01/2024 Blood pressure systolic 128 mm Hg 11/01/2024 Weight 202 lbs 11/01/2024 BMI 28.17 kg/m2 11/01/2024 Procedures Procedure Date Ordered Date Performed Result Body Sit e 62544-YAIDUVL NAIL, 6 OR MORE 05/10/2024 N/A 82825-PYLB SKIN LESIONS, OVER 4 05/10/2024 N/A 00373-IYOIKMU NAIL, 6 OR MORE 11/01/2024 N/A 95727-QQGD SKIN LESIONS, OVER 4 11/01/2024 N/A Encounters Encounter Location Date Provider Diagnosis [facility] [address] [address] 05/10/2024 Chris Arambula Type 2 diabetes mellitus with diabetic polyneuropathy E11.42 ; Tinea unguium B35.1 ; Other hammer toe(s) (acquired), right foot M20.41 and Other hammer toe(s) (acquired), left foot M20.42 [facility] [address] [place] [address] 11/01/2024 Chris Arambula Type 2 diabetes mellitus with diabetic polyneuropathy E11.42 and Tinea unguium B35.1 [facility] [address] [place] [address] 08/09/2024 Chris Arambula Assessments Encounter Date Diagnosis [...] Treatment Pending Test Test Name Order Date 75302-JUJVADK NAIL, 6 OR MORE 12/06/2021 82301-FSALKGP NAIL, 6 OR MORE 02/27/2022 36145-CGSUICL NAIL, 6 OR MORE 05/29/2022 80580-PPFZMLS NAIL, 6 OR MORE 08/28/2022 02342-HCQDHYF NAIL, 6 OR MORE 12/04/2022 60096-RKKFZZT NAIL, 6 OR MORE 03/12/2023 00540-IAWGYUK NAIL, 6 OR MORE 06/26/2023 91124-UYCWAON NAIL, 6 OR MORE 11/03/2023 20044-KJETORF NAIL, 6 OR MORE 02/02/2024 32574-FQPZWAM NAIL, 6 OR MORE 05/10/2024 89503-QKOXRVR NAIL, 6 OR MORE 11/01/2024 10639-GEEK SKIN LESIONS, OVER 4 11/02/19 25 10068-JBEV SKIN LESIONS, OVER 4 05/10/19 25 70035-YYFO SKIN LESIONS, OVER 4 02/02/20 24 17270-WVCX SKIN LESIONS, OVER 4 11/03/19 24 57265-HPVA SKIN LESIONS, OVER 4 06/26/19 24 89135-HXVY SKIN LESIONS, OVER 4 03/12/20 23 90470-DYYS SKIN LESIONS, OVER 4 12/05/19 23 02109-PVUD SKIN LESIONS, OVER 4 08/29/19 23 41266-SZSO SKIN LESIONS, OVER 4 05/30/19 23 39229-FLGH SKIN LESIONS, 2 TO 4 02/28/20 22 37739-IEEJ SKIN LESIONS, 2 TO 4 12/07/19 22 Next Appt Details Provider Name:Chris Arambula , 02/17/2025 01:00:00 PM, [address] [facility], [address], [place], [address], Insurance Providers Payer Name Payer Address Payer Phone Subscriber Number Group Number Insured Name Patient Relationship to Insured Coverage Start Date Coverage End Date Medicare National Govt [employer] [address] [place] [address] [id number] Laron Morrison Self - patient is the insured [employer] [address] [place] [address] [phone] [id number] Laron Morrison Self - patient is the insured Medical (General) History Medical History History ICD Code type II diabetes Polyneuropathy Alcohol abuse Anxiety Depression Hypertension Peripheral vascular disease Back,Hip,and Knee pain Chron's/ Colitis CAD Surgical History Surgery Date(Month/Year) cataract surgery Hospitalization History Reason Date(Month/Year) [facility]- leg inflammation/swelling 08/30
--- OUTSIDE RECORDS SUMMARY | 2025-02-09 18:43 | XMS_ITS | Clinical Summary ---
Author Organization [facility] Address [address] [place], [place] [address] Phone Care Team Providers Care Front Desk Worker Name Role Phone Brissa Turner MD Primary [...] Arnold Payer ID:Not on file Type:HMO Address: [place] [id number] [place], [place] [address] [place] [address] [place] [address] [facility] H[facility] Care Teams Front Desk Worker Relationship Specialty Start Date End Date Brissa Turner MD [address] [place] [address] [address] [place] [address] PCP - General Internal Medicine 04/19/20 Additional Source Comments The information contained in this document represents components of the legal health record. It is not the complete legal health record.[facility]
== END 2025-02-09 16:51 | disposition home or self-care (01) ==
LOC: HO.HMCFM 15:37
PROVIDERS: PCP Family Medicine; Visit Provider Family Medicine
DX: L02.419 Cutaneous abscess of limb, unspecified (principal)

== ENCOUNTER → 2025-02-09 15:36 | Outpatient (BNVA) | payer MEDICARE, SELFPAY | PROVIDERS: PCP Family Medicine; Visit Provider Family Medicine | DX: L02.416 Cutaneous abscess of left lower limb (principal); F17.200 Nicotine dependence, unspecified, uncomplicated; Z71.6 Tobacco abuse counseling | CPT/HCPCS: 99212 ==

== ENCOUNTER 2025-02-14 09:59 | Outpatient (AMB) | payer MEDICARE, SELFPAY ==
[2025-02-14 09:57] VITALS: BP 134/60; PULSE 105; O2SAT 96; BMI 28.7
--- NOTE | 2025-02-14 09:57 | A.OFFVIS_ITS ---
Vital Signs 02/14/25 09:57 Height 5 ft 11 in Weight 206 lb BMI 28.7 BP 134/60 Blood Pressure Location Lt brachial Position Sitting Pulse 105 H Pulse Source Pulse Oximeter Pulse Oximetry (%) 96 Oxygen Delivery Method Room Air Intake Visit Reasons: MAT Allergies niacin (NIACIN) Adverse Reaction (Mild, Verified 02/14/25 10:00) RED FLUSH, SHAKING HPI Comments Details: A 69-year-old male presents for a follow-up r/t AUD and reports no longer consuming hard liquor and down to 3 beers every other day. Denies use of opiat es, and other substances and continues to decrease cigarette smoking. Reports naltrexone helps to decrease cravings for alcohol. Engages in conversation re: plans to visit daughter in [place] for the next 2 months. [facility] Medical History Bleeding hemorrhoids Transaminitis Hemorrhoids without complication History of alcohol abuse Diabetes type 2, uncontrolled PVD (peripheral vascular disease) Diabetic polyneuropathy associated with type 2 diabetes mellitus Diabetes type 2, controlled Alcohol abuse Hypertension Neuropathy Diabetes Depression Anxiety Surgical History H/O colonoscopy Family History Mother No problems noted. Father No problems noted. Social History Household Members: Family Housing: House Do you presently have visiting nurse or other home services: No Alcohol intake: former Comment: Will drink beers intermittently during the week Patient Tobacco Use Status: Current everyday Tobacco user Tobacco use type: Cigarette Cigarettes Per Day: 4 Years Smoked: 50 e-Cigarette/Vaping Use: Never Used Second Hand Smoke Exposure: Yes service: No Current occupational status: retired Current occupational exposures/hazards: No Cognitive needs: Yes (cane) Hearing needs: No Vision needs: Yes (reading glasses) Review of Systems Const All systems reviewed & are unremarkable except as noted in HPI and below Physical Exam Vital Signs: Last Vital Signs Pulse 105 H 02/14/25 09:57 BP 134/60 02/14/25 09:57 Pulse Ox 96 02/14/25 09:57 Oxygen Delivery Method Room Air 02/14/25 09:57 BMI result Body Mass Index 28.7 Const General: cooperative Assessment & Plan Assessment & Plan (1) Alcohol use disorder, severe, dependence: Code(s): F10.20 - Alcohol dependence, uncomplicated Category: Medical Plan The plan of care is to continue with naltrexone tablets 50 mg, thiamine 100 mg, and folic acid 1 mg daily. Utilize risk reduction activities to minimize alcohol consumption and follow-up in 3 months or sooner if needed. Patient Instructions: - Continue with naltrexone tablets 50 mg, thiamine, and folic acid as prescribed. - Utilize risk reduction activities minimize alcohol consumption. - Follow-up in 3 months or sooner if needed. - Call with questions, concerns, or to report side effects/new onset of symptoms to [facility]. - The patient verbalized understanding and agreed with plan of care. Coding Level of Care Code Est Pt Level 3 (14905) Diagnoses Alcohol use disorder, severe, dependence F10.20
== END 2025-02-14 10:19 | disposition home or self-care (01) ==
PROVIDERS: PCP Family Medicine; Visit Provider Clinical Nurse Specialist Psychiatric/Mental Health
DX: F10.20 Alcohol dependence, uncomplicated (principal)
CPT/HCPCS: 99213

== ENCOUNTER → 2025-02-14 09:59 | Outpatient (BNVA) | payer MEDICARE, SELFPAY | PROVIDERS: PCP Family Medicine; Visit Provider Clinical Nurse Specialist Psychiatric/Mental Health | DX: F10.20 Alcohol dependence, uncomplicated (principal); Z79.899 Other long term (current) drug therapy | CPT/HCPCS: 99212 ==

== ENCOUNTER 2025-02-21 09:43 | Outpatient (AMB) | payer MEDICARE, SELFPAY ==
--- OUTSIDE RECORDS SUMMARY | 2023-09-25 06:15 | XMS_ITS ---
Author Organization [facility] Address [address] [place] [address] Care Team Providers Care Platen Builder Up Name Role Phone Sharmaine WALLACE, Balbir Primary Care Provider Chris Douglas Unavailable [phone] Encounters Encounter Location Date Provider Diagnosis [address] [address] 09/25/2023 Chris Arambula Plan Of Treatment Next Appt Details Provider Name:Chris Arambula , 05/25/2025 08:30:00 AM, [address], [address], Progress Notes * Laron ARNOLDDOB: [birth year] (69 yo M)Acc No.[id number]:09/25/2023 Progress Note Patient: Katheryn Laron WALTON Provider: London Arambula DPM :1955 A ge:67 Y S ex:Male Date:09/25/2023 Address:[address] [place], [place] [id number] Pcp:Balbir Schmid MD Subjective: * Chief Complaints: * * Medical History: Objective: * Vitals: Assessment: Plan: * Treatment: * Images: * The named appointment provid er may or may not be the originator of this progress note, and it is not deemed complete until electronically signed by the appointment provider. Sign off status: Pending * Provider: London Arambula DPM Date: 0 09/25/2023 Generated for Ulisses roberts/Junior/Shi on: 1 04/23/2024 11:21 AM EST
--- OUTSIDE RECORDS SUMMARY | 2024-08-09 06:15 | XMS_ITS ---
Author Organization [facility] Address [address] [place] [address] Care Team Providers Care Drop Hammer Mechanic Name Role Phone Sharmaine WALLACE, Balbir Primary Care Provider Chris Douglas Unavailable [phone] Encounters Encounter Location Date Provider Diagnosis [address] [address] 08/09/2024 Chris Arambula Plan Of Treatment Next Appt Details Provider Name:Chris Arambula , 05/25/2025 08:30:00 AM, [address], [address], Progress Notes * Laron ARNOLDDOB: [birth year] (69 yo M)Acc No.[id number]:08/09/2024 Progress Note Patient: Katheryn Laron WALTON Provider: London Arambula DPM :1955 A ge:68 Y S ex:Male Date:08/09/2024 Address:[address] [place], [place] [id number] Pcp:Balbir Schmid MD Subjective: * Chief Complaints: [...] 08/09/2024 Generated for Ulisses roberts/Junior/Shi on: 1 04/23/2024 11:21 AM EST
--- OUTSIDE RECORDS SUMMARY | 2025-02-17 08:00 | XMS_ITS ---
Author Organization [facility] Address [address] [place] [address] Care Team Providers Care Consulting Application Engineer Name Role Phone Sharmaine WALLACE, Balbir Primary Care Provider Chris Douglas Unavailable [phone] Encounters Encounter Location Date Provider Diagnosis [address] [address] 02/17/2025 Chris Arambula Plan Of Treatment Next Appt Details Provider Name:Chris Arambula , 05/25/2025 08:30:00 AM, [address], [address], Progress Notes * Laron ARNOLDDOB: [birth year] (69 yo M)Acc No.[id number]:02/17/2025 Progress Note Patient: Katheryn Laron WALTON Provider: London Arambula DPM :1955 A ge:69 Y S ex:Male Date:02/17/2025 Address:[address] [place], [place] [id number] Pcp:Balbir Schmid MD Subjective: * Chief Complaints: * * Medical History: Objective: * Vitals: Assessment: Plan: * Treatment: * Images: * The named appointment provid er may or may not be the originator of this progress note, and it is not deemed complete until electronically signed by the appointment provider. Sign off status: Pending * Provider: London Arambula DPM Date: 04/19/2024 Generated for Ulisses roberts/Junior/hSi on: 04/23/2024 11:21 AM EST
--- NOTE | 2025-02-21 09:53 | A.OFFVIS_ITS ---
Vital Signs 02/21/25 10:01 BP 148/70 H Blood Pressure Location Lt brachial Position Sitting Pulse 94 Pulse Source Pulse Oximeter Pulse Oximetry (%) 94 Oxygen Delivery Method Room Air Intake Visit Reasons: Hepatitis B #3 Industrial Services Worker Required: No Allergies niacin (NIACIN) Adverse Reaction (Mild, Verified 02/21/25 10:07) RED FLUSH, SHAKING PFSH Medical History Bleeding hemorrhoids Transaminitis Hemorrhoids without complication History of alcohol abuse Diabetes type 2, uncontrolled PVD (peripheral vascular disease) Diabetic polyneuropathy associated with type 2 diabetes mellitus Diabetes type 2, controlled Alcohol abuse Hypertension Neuropathy Diabetes Depression Anxiety Surgical History H/O colonoscopy Family History Mother No problems noted. Father No problems noted. Social History Household Members: Family Housing: House Do you presently have visiting nurse or other home services: No Alcohol intake: former Comment: Will drink beers intermittently during the week Patient Tobacco Use Status: Current everyday Tobacco user Tobacco use type: Cigarette Cigarettes Per Day: 4 Years Smoked: 50 e-Cigarette/Vaping Use: Never Used Second Hand Smoke Exposure: Yes service: No Current occupational status: retired Current occupational exposures/hazards: No Cognitive needs: Yes (cane) Hearing needs: No Vision needs: Yes (reading glasses) Physical Exam Vital Signs: Last Vital Signs Pulse 94 02/21/25 10:01 BP 148/70 H 02/21/25 10:01 Pulse Ox 94 02/21/25 10:01 Oxygen Delivery Method Room Air 02/21/25 10:01 Immunizations Engerix-B (PF) 20 mcg/mL intramuscular suspension Performing Provider: DILLON Gunter Performing Location: [facility] Administered by: Madeleine Mortensen RN on 02/21/25 10:07 Dose Route Admin Location Dispensed Lot Number Expiration Date [facility] [employer] [place] Supervisor 1 mL IM Left Deltoid 1 mL [id number] 03/09/27 53472-315-98 [employer] Total Dispensed Waste 1 mL 0 % VIS Given Date VIS Provided VIS Publication Date 02/21/25 Single Vaccine 22 Eligibility Eligibility Date Funding Source Not [facility] Eligible 02/21/25 Private Assessment & Plan Assessment & Plan (1) Immunization due: Code(s): Z23 - Encounter for immunization Orders: Orders Hepatitis B Adult Immunization Today Z23 - Encounter for immunization Coding Level of Care Code Established Pt Est Pt Level 1 (60308) Patient Type Established Diagnoses Immunization due Z23 Comment Nurse Visit Only
[2025-02-21 10:01] VITALS: BP 148/70; PULSE 94; O2SAT 94
--- OUTSIDE RECORDS SUMMARY | 2025-02-21 11:21 | XMS_ITS | Clinical Summary ---
Author Organization [facility] Facility Address [address] [place] [address] Care Team Providers Care Rac Specialist Name Role Phone Unavailable Primary Care Provider [...] age to complete this topic Insurance [facility]
--- OUTSIDE RECORDS SUMMARY | 2025-02-21 11:22 | XMS_ITS | Patient Health Record ---
Author Organization [facility] Address [address] [place] [address] Care Team Providers Care Model Set Artist Name Role Phone Balbir Schmid MD Primary Care Provider Chris Douglas Unavailable [phone] Allergies Allergen (clinical drug ingredient) Drug/Non Drug [...] Problem Acquired hammer toe of right foot (9705206061922266 ) Other hammer toe(s) (acquired), right foot (M20.41) Active confirmed Response to treatment, Isauro dixon Problem Acquired hammer toe of left foot (5882582442087912 ) Other hammer toe(s) (acquired), left foot (M20.42) Active confirmed Response to treatment, Isauro t Problem Polyneuropathy due to type 2 diabetes mellitus (702989369) Type 2 diabetes mellitus with diabetic polyneuropathy (E11.42) Active confirmed Vital Signs Blood pressure diastolic 70 mm Hg 11/01/2024 Height 5ft 11in in 11/01/2024 Blood pressure systolic 128 mm Hg 11/01/2024 Weight 202 lbs 11/01/2024 BMI 28.17 kg/m2 11/01/2024 Procedures Procedure Date Ordered Date Performed Result Body Sit e 47356-SVNMXCH NAIL, 6 OR MORE 05/10/2024 N/A 49893-SSGT SKIN LESIONS, OVER 4 05/10/2024 N/A 18280-QUMXBVY NAIL, 6 OR MORE 11/01/2024 N/A 11810-EVNE SKIN LESIONS, OVER 4 11/01/2024 N/A Encounters Encounter Location Date Provider Diagnosis [facility] [address] [address] 05/10/2024 Chris Arambula Type 2 diabetes mellitus with diabetic polyneuropathy E11.42 ; Tinea unguium B35.1 ; Other hammer toe(s) (acquired), right foot M20.41 and Other hammer toe(s) (acquired), left foot M20.42 [facility] [address] [address] 11/01/2024 Chris Arambula Type 2 diabetes mellitus with diabetic polyneuropathy E11.42 and Tinea unguium B35.1 [facility] [address] [place] [address] 08/09/2024 Chris Arambula [address] [address] 02/15/2025 Chris Arambula Assessments Encounter Date Diagnosis (ICD [...] Treatment Pending Test Test Name Order Date 13409-GGJCFVL NAIL, 6 OR MORE 12/06/2021 87283-CHNOJNJ NAIL, 6 OR MORE 02/27/2022 37708-LEVYHHG NAIL, 6 OR MORE 05/29/2022 40254-CZIOSMG NAIL, 6 OR MORE 08/28/2022 86955-MARDMZU NAIL, 6 OR MORE 12/04/2022 01421-JRMHJIA NAIL, 6 OR MORE 03/12/2023 17479-YHWKTCA NAIL, 6 OR MORE 02/02/2024 30417-NHJNCOK NAIL, 6 OR MORE 11/01/2024 41231-TXYRPNC NAIL, 6 OR MORE 05/10/2024 05872-APGJUZP NAIL, 6 OR MORE 11/03/2023 57376-PPIOKOL NAIL, 6 OR MORE 06/26/2023 16818-MEIC SKIN LESIONS, OVER 4 06/26/19 24 00411-NWOV SKIN LESIONS, OVER 4 11/03/19 24 38434-NZKD SKIN LESIONS, OVER 4 05/10/19 25 59258-AIVP SKIN LESIONS, OVER 4 11/02/19 25 91046-IIAA SKIN LESIONS, OVER 4 02/02/20 24 11166-WUFL SKIN LESIONS, OVER 4 03/12/20 23 23299-NCNO SKIN LESIONS, OVER 4 12/05/19 23 18901-ZYXP SKIN LESIONS, OVER 4 08/29/19 23 59582-NJTS SKIN LESIONS, OVER 4 05/30/19 23 60064-SXHV SKIN LESIONS, 2 TO 4 02/28/20 22 28724-KZIW SKIN LESIONS, 2 TO 4 12/07/19 Next Appt Details Provider Name:Chris Arambula , 05/25/2025 08:30:00 AM, [address] [facility], [facility] [address], [place], [address], Insurance Providers Payer Name Payer Address Payer Phone Subscriber Number Group Number Insured Name Patient Relationship to Insured Coverage Start Date Coverage End Date Medicare National Govt [employer] [address] [facility] [address] [id number] Laron Morrison Self - patient is the insured [employer] [address] [phone] [id number] Laron Morrison Self - patient is the insured Medical (General) History Medical History History ICD Code type II diabetes Polyneuropathy Alcohol abuse Anxiety Depression Hypertension Peripheral vascular disease Back,Hip,and Knee pain Chron's/ Colitis CAD Surgical History Surgery Date(Month/Year) cataract surgery Hospitalization History Reason Date(Month/Year) [facility]- leg inflammation/swelling 08/30
--- OUTSIDE RECORDS SUMMARY | 2025-02-21 11:22 | XMS_ITS | Clinical Summary ---
Author Organization [facility] Address [address] [place], [place] [id number] Phone Care Team Providers Care Retail Coordinator Name Role Phone Brissa Turner MD Primary [...] Arnold Payer ID:Not on file Type:HMO Address: [place] [id number] [place], [place] [address]O [facility] [place] [address] [place] [address] HMO [facility] H[facility] Care Teams Retail Coordinator Relationship Specialty Start Date End Date Brissa Turner MD [address] [place] [address] [address] [place] [address] PCP - General Internal Medicine 04/19/20 Additional Source Comments The information contained in this document represents components of the legal health record. It is not the complete legal health record.[facility]
== END 2025-02-21 10:10 | disposition home or self-care (01) ==
LOC: HO.HGI 09:44
PROVIDERS: PCP Family Medicine; Visit Provider Nurse Practitioner Family
DX: Z23 Encounter for immunization (principal)

== ENCOUNTER → 2025-02-21 09:43 | Outpatient (BNVA) | payer MEDICARE, SELFPAY | PROVIDERS: PCP Family Medicine; Visit Provider Nurse Practitioner Family | DX: Z23 Encounter for immunization (principal); Z11.59 Encounter for screening for other viral diseases; Z72.89 Other problems related to lifestyle | CPT/HCPCS: 90471; 90746 ==

== ENCOUNTER 2025-03-10 10:37 | Day surgery (SDC) | payer MEDICARE, SELFPAY ==
--- NOTE | 2025-03-08 11:59 | P.CONAN_ITS ---
Documented by User: Cookie Thapa NP 03/08/25 12:05 HPI - Anesthesia Eval Consult details Narrative: 69 yr old male for upper endoscopy, colonoscopy ETOH used disorder: follows with addiction medicine, at 02/14/25 visit pt reported no longer drinking hard liquor, has 3 beers every other day . On naltrexone to control cravings. +Tobacco use daily H/O cirrhosis 2/2 ETOH use: INR 1.6 07/2024; low platelets, 84 12/2024 Poorly controlled Type 2 DM: A1C 9.1% Anesthesia Pre-Procedure Meds Is the patient on any of the following meds?: GLP1/DPP4 PMFSH Active Problems Active Problems: All Active Problems (Updated 02/09/25 @ 15:55 by Doc Bryan) Abscess of lower extremity (Acute) Unsteady gait (Acute) Cognitive changes (Acute) Alcohol use disorder, severe, dependence (Acute) Bladder outlet obstruction (Acute) Elevated PSA (Acute) Alcohol abuse (Acute) Diabetic neuropathy (Acute) Pre-op evaluation (Acute) Swelling of upper extremity (Acute) Pre-operative clearance (Acute) Gynecomastia (Acute) Adverse reaction to antidiabetic drug (Acute) Cirrhosis (Acute) Pulmonary nodule (Acute) Acute kidney injury (Acute) Anemia (Acute) History of alcohol abuse (Acute) Fungal rash of torso (Acute) Low magnesium level (Acute) Balanitis (Acute) Blister of lower extremity (Acute) Lower extremity edema (Acute) Mild anemia (Acute) Hypocalcemia (Acute) Hypophosphatemia (Acute) Diarrhea (Acute) Fatigue (Acute) Memory changes (Acute) Stool incontinence (Acute) Loose stools (Acute) Smoker (Acute) Lower extremity weakness (Acute) Elevated serum creatinine (Acute) Elevated liver enzymes (Acute) Constipation by delayed colonic transit (Acute) Bleeding hemorrhoids (Acute) Abnormal stools (Acute) Phimosis of penis (Acute) Dysuria (Acute) Pitting edema (Acute) S/P hemorrhoidectomy (Acute) Wheeze (Acute) Hemorrhoids without complication (Acute) Dry eye syndrome of both eyes (Acute) Diabetes mellitus with neuropathy (Acute) Essential hypertension (Acute) Hyperlipidemia (Acute) Colon polyps (Acute) Annual physical exam (Acute) Elevated transaminase level (Acute) Screening for colon cancer (Acute) Screening for prostate cancer (Acute) Diabetes type 2, uncontrolled (Acute) PVD (peripheral vascular disease) (Acute) Diabetic polyneuropathy associated with type 2 diabetes mellitus (Acute) Diabetes type 2, controlled (Acute) Past Medical History Medical History Bleeding hemorrhoids Transaminitis Hemorrhoids without complication History of alcohol abuse PVD (peripheral vascular disease) Diabetic polyneuropathy associated with type 2 diabetes mellitus Diabetes type 2, controlled Alcohol abuse Hypertension Neuropathy Depression Anxiety Family History Family History Mother No problems noted. Father No problems noted. Family history of problems with anesthesia: No Surgical History Surgical History History of esophagogastroduodenoscopy (EGD) H/O colonoscopy History of Problems with Anesthesia: No Social History Social History Household Members: Family Housing: House Do you presently have visiting nurse or other home services: No Alcohol intake: former Comment: Will drink beers intermittently during the week Patient Tobacco Use Status: Current everyday Tobacco user Tobacco use type: Cigarette Cigarettes Per Day: 4 Years Smoked: 50 e-Cigarette/Vaping Use: Never Used Second Hand Smoke Exposure: Yes Are you DNR?: No Advance Directives: No Advance Directives Information Provided: Yes service: No Current occupational status: retired Current occupational exposures/hazards: No Cognitive needs: Yes (cane) Hearing needs: No Vision needs: Yes (reading glasses) Meds Allergies Allergy/AdvReac Type Severity Reaction Status Date / Time niacin (NIACIN) AdvReac Mild RED FLUSH, Verified 02/21/25 10:07 SHAKING Home Medications ?Medication ?Instructions ?Recorded ?Confirmed ?Last Taken ?Type furosemide 40 mg tablet 40 mg PO DAILY 08/13/2402/28 Unknown History spironolactone 25 mg tablet 25 mg PO BID 08/13/2402/28 Unknown History Exam Narrative Narrative: LIVER US 02/2024 IMPRESSION: 1. Liver is enlarged, increased and coarsened in echogenicity, with a macrolobulated contour suggesting a mix of hepatocellular disease/early cirrhosis and fatty infiltration. No suspicious lesions. Trace perihepatic fluid. 2. Elastography: Liver elastography measurements are consistent with a moderate risk for clinically significant liver fibrosis (METAVIR Stage F2-F3). (I.e. measurements are suggestive of compensated advanced chronic liver disease, but need further test for confirmation). There has been no significant interval change in these measurements from the prior exam. 3. Gallbladder demonstrates mild wall thickening, likely on the basis of underlying hepatocellular disease. Small amount of probable sludge in the fundus. No calculi and negative sonographic Arteaga sign. 4. No biliary abnormalities. Assessment and Plan Final Anesthetic Review Family History of Problems with Anesthesia: No History of Problems with Anesthesia: No Documented by User: Gabi Valdovinos MD 03/10/25 13:33 [facility] Past Medical History Medical History Bleeding hemorrhoids Transaminitis Hemorrhoids without complication History of alcohol abuse PVD (peripheral vascular disease) Diabetic polyneuropathy associated with type 2 diabetes mellitus Diabetes type 2, controlled Alcohol abuse Hypertension Neuropathy Depression Anxiety Family History Family History Mother No problems noted. Father No problems noted. Surgical History Surgical History History of esophagogastroduodenoscopy (EGD) H/O colonoscopy Social History Social History Household Members: Family Housing: House Do you presently have visiting nurse or other home services: No Alcohol intake: former Comment: Will drink beers intermittently during the week Patient Tobacco Use Status: Current everyday Tobacco user Tobacco use type: Cigarette Cigarettes Per Day: 4 Years Smoked: 50 e-Cigarette/Vaping Use: Never Used Second Hand Smoke Exposure: Yes Are you DNR?: No Advance Directives: No Advance Directives Information Provided: Yes service: No Current occupational status: retired Current occupational exposures/hazards: No Cognitive needs: Yes (cane) Hearing needs: No Vision needs: Yes (reading glasses) Meds Allergies Allergy/AdvReac Type Severity Reaction Status Date / Time niacin (NIACIN) AdvReac Mild RED FLUSH, Verified 02/21/25 10:07 SHAKING Home Medications ?Medication ?Instructions ?Recorded ?Confirmed ?Last Taken ?Type furosemide 40 mg tablet 40 mg PO DAILY 08/13/2402/28 Unknown History spironolactone 25 mg tablet 25 mg PO BID 08/13/2402/28 Unknown History Exam Airway Mallampati Class: II TM Dist: >3cm Neck ROM: Full Heart: rrr Lungs: cta Assessment and Plan Assessment Anesthesia Assessment: Anesthesia Plan Discussed and Chart Reviewed Final Anesthetic Review NPO: Yes ASA Class: III Final Preanesthetic Review: No Changes in Pt Med Stat, Meds/Allgs Chart Reviewed, Consent Obtained/Reviewed and Anes Risks/Benef Reviewed Patient Risk: Intermediate Procedure Risk: Low Anesthetic Plan Anesthetic Plan: MAC: Disposition: Standard PACU
[2025-03-08 13:15] VITALS: BMI 27.9
[2025-03-10 11:48] VITALS: BMI 26.8
[2025-03-10 12:02] VITALS: BP 155/77; PULSE 99; RESP 18; TEMP 37.3; O2SAT 95
[2025-03-10 12:11] LABS: Glucose, Whole Blood 248 mg/dL (60-115)
[2025-03-10 12:29] LABS: INTERNATIONAL NORM RATIO 1.5 (0.9-1.1); Prothrombin Time 17.8 SEC (11.2-13.5)
[2025-03-10 12:32] LABS: Hematocrit 42.3 % (42.0-52.0); Hemoglobin 14.7 g/dl (14.0-18.0); Mean Corpuscular HGB Conc 34.8 g/dl (31.0-36.0); Mean Corpuscular Hemoglobin 33.1 pg (27.0-33.0); Mean Corpuscular Volume 95.3 fL (80.0-98.0); NRBC Abs Auto 0.000 X10*3/uL (0.0-0.012); NRBC Pct Auto 0.0 /100WBC (0.0-0.2); PLT CLUMP 1; Red Blood Count 4.44 X10*6/uL (4.60-5.80)
[2025-03-10 13:05] LABS: Platelet Count 79 X10*3/uL (160-400); White Blood Count 6.7 X10*3/uL (4.8-10.8)
--- NOTE | 2025-03-10 13:05 | P.HPSUR_ITS ---
Pre-Procedural Eval Section A - 24 Hr Update-Section A only Date of Service: 03/10/25 Section B - Complete if H&P > 30 days Chief Complaint: cirrhosis, fam hx of CRC Details of Present Illness: Bleeding hemorrhoids Transaminitis Hemorrhoids without complication History of alcohol abuse Diabetes type 2, uncontrolled PVD (peripheral vascular disease) Diabetic polyneuropathy associated with type 2 diabetes mellitus Diabetes type 2, controlled Alcohol abuse Hypertension Neuropathy Diabetes Depression Anxiety Surgical History H/O colonoscopy Present Medications: see Short Stay Collaborative assessment Allergies: Allergies Allergy/AdvReac Type Severity Reaction Status Date / Time niacin (NIACIN) AdvReac Mild RED FLUSH, Verified 02/21/25 10:07 SHAKING Review of Systems Review of Systems Comment: Ten point ROS negative Exam Exam Comment: Gen appear: No acute distress HEENT: no icterus Chest: No overt resp distress Abd: soft, nontender, nondistended Psych: Stable affect, answering questions appropriately Neuro: A/Ox3 noted to move all extremities spontaneously Ext: no peripheral edema Plan Diagnosis/Plan: Unchanged I have reviewed the history and physical and performed a pertinent physical examination on my patient. No changes have occurred unless specified. Time Spent With Patient Time: Total time managing care of this patient today ____ minutes.
--- NOTE | 2025-03-10 13:42 | P.OPN-COLO_ITS ---
Colonoscopy Operative Note Operative Note Date of Service: 03/10/25 Narrative: Procedure: Upper endoscopy and colonoscopy Indication: Cirrhosis, fam hx of CRC Endoscopist: Dania Martínez MD Anesthesia Provider: Elisha Paige CRNA Anesthesia type: MAC Instrument: [id number] and [id number]-[id number] EGD Procedure:?? The procedure, indications, preparation and potential complications were reviewed with the patient, who indicated understanding and gave written informed consent to proceed. The endoscope was introduced through the mouth, and advanced to the 2nd part of the duodenum. The mucosa was carefully examined on slow withdrawal of the endoscope. The patient tolerated the procedure well. There were no immediate complications.? EGD Findings:? * Esophagus:? Small varices occupying < 25% of lumen noted in lower esophagus. The Z line was at []. * Stomach:? Erythema in a mosaic pattern consistent with portal hypertensive gastropathy. Retroflexion was performed in the cardia that did not reveal any fundal varices. Cold forceps biopsies were taken from the stomach body and antrum. * Duodenum:? Normal duodenal mucosa. Colonoscopy Procedure:? The patient was then turned for the colonoscopy. A digital rectal exam was performed which was normal.? A distal attachment cap was affixed to the tip of the scope and the colonoscope was then inserted through the anus and advanced through the colon and advanced to the cecum at 75 cm and terminal ileum.? Appendiceal orifice and ileocecal valve were identified. Mucosa was carefully examined under high definition white light as the instrument was slowly withdrawn in a retrograde panoramic fashion. Retroflexion was performed in rectum. The procedure was not difficult. The quality of the prep was BBPS: 3+3+3 = adequate Withdrawal time 15 minutes Limitations: No limitations Findings: Mucosa: A small nonbleeding AVM measuring 5 mm noted in the ascending colon. APC was applied using a straight fire catheter with complete ablation. Remaining colon mucosa was normal to the extent examined. Terminal ileum mucosa was normal. Protruding lesions: * Two sessile polyp of size 3-6 mm noted in sigmoid colon. Cold snare polypectomy was performed. The polyps were completely removed and retrieved. * Medium to large size rectal varices noted on retroflexion. * Small internal hemorrhoids without stigmata of recent bleeding. Impression: 1. Esophageal varices 2. Portal hypertensive gastropathy 3. Gastritis (biopsy) 4. Normal duodenum 5. Ascending colon AVM (APC) 6. Total of 2 polyps removed 7. Rectal varices 8. Internal hemorrhoids Recommendations:?? * Follow-up path results * Avoid NSAIDs * Start carvedilol 3.125 mg BID for variceal prophylaxis. Increase to 6.25 mg BID if HR and BP allows. * Repeat upper endoscopy for variceal screening in 1 year * Patient is also due for an ultrasound abdomen for HCC screening. * Repeat colonoscopy in 5 years due to family history of colon cancer (reports CRC in brother in his 50s) * Strict etOH abstinence reviewed again
[2025-03-10 13:48] VITALS: BP 128/70; PULSE 87; RESP 13; TEMP 36.6; O2SAT 96
[2025-03-10 14:00] VITALS: BP 134/74; PULSE 82; RESP 13; TEMP 36.6; O2SAT 96
== END 2025-03-10 14:39 | disposition home or self-care (01) ==
PROVIDERS: Nurse Practitioner; PCP Family Medicine; Visit Provider Internal Medicine
PROC: (CPT 45385; principal; 2025-03-10 12:50)
DX: Z12.11 Encounter for screening for malignant neoplasm of colon (principal); Z80.0 Family history of malignant neoplasm of digestive organs; K70.30 Alcoholic cirrhosis of liver without ascites; F10.10 Alcohol abuse, uncomplicated; E11.9 Type 2 diabetes mellitus without complications; K76.6 Portal hypertension; I85.10 Secondary esophageal varices without bleeding; I86.8 Varicose veins of other specified sites; Q27.33 Arteriovenous malformation of digestive system vessel; K64.8 Other hemorrhoids; D12.5 Benign neoplasm of sigmoid colon; K29.70 Gastritis, unspecified, without bleeding
CPT/HCPCS: 45385; 45388; 43239; 36415; 82947; 85027; 85610; 88305; 88313; 88342; C1889; J2003; J2250; J2704; J3010

== ENCOUNTER → 2025-03-10 10:37 | Outpatient (BNV) | payer MEDICARE, SELFPAY | PROVIDERS: PCP Family Medicine; Visit Provider Internal Medicine | DX: K74.60 Unspecified cirrhosis of liver (principal); I85.00 Esophageal varices without bleeding; K76.6 Portal hypertension; K31.89 Other diseases of stomach and duodenum; Z80.0 Family history of malignant neoplasm of digestive organs; K55.20 Angiodysplasia of colon without hemorrhage; K63.5 Polyp of colon; I86.8 Varicose veins of other specified sites; K64.8 Other hemorrhoids | CPT/HCPCS: 43239; 45388 ==

== ENCOUNTER 2025-03-25 09:16 | Outpatient (AMB) | payer MEDICARE, SELFPAY ==
--- OUTSIDE RECORDS SUMMARY | 2023-09-25 06:15 | XMS_ITS ---
Author Organization [facility] Address [address] [place] [address] Care Team Providers Care Telephone Clerk Telegraph Office Name Role Phone Sharmaine WALLACE, Balbir Primary Care Provider Chris Douglas Unavailable [phone] Encounters Encounter Location Date Provider Diagnosis [address] [address] 09/25/2023 Chris Arambula Plan Of Treatment Next Appt Details Provider Name:Chris Arambula , 05/25/2025 08:30:00 AM, [address], [address], Progress Notes * Laron ARNOLDDOB: [birth year] (69 yo M)Acc No.[id number]:09/25/2023 Progress Note Patient: Katheryn Laron WALTON Provider: London Arambula DPM :1955 A ge:67 Y S ex:Male Date:09/25/2023 Address:[address] [place], [place] [id number] Pcp:Balbir Schmid MD Subjective: * Chief Complaints: [...] DPM Date: 0 09/25/2023 Generated for Ulisses roberts/Junior/Sih on: 1 05/26/2024 09:19 AM EST
--- OUTSIDE RECORDS SUMMARY | 2024-08-09 06:15 | XMS_ITS ---
Author Organization [facility] Address [address] [place] [address] Care Team Providers Care Factory Process Workers Name Role Phone Sharmaine WALLACE, Balbir Primary Care Provider Chris Douglas Unavailable [phone] Encounters Encounter Location Date Provider Diagnosis [address] [address] 08/09/2024 Chris Arambula Plan Of Treatment Next Appt Details Provider Name:Chris Arambula , 05/25/2025 08:30:00 AM, [address], [address], Progress Notes * Laron ARNOLDDOB: [birth year] (69 yo M)Acc No.[id number]:08/09/2024 Progress Note Patient: Katheryn Laron WALTON Provider: London Arambula DPM :1955 A ge:68 Y S ex:Male Date:08/09/2024 Address:[address] [place], [place] [phone] Pcp:Balbir Schmid MD Subjective: * Chief Complaints: [...] 08/09/2024 Generated for Ulisses roberts/Junior/Shi on: 1 05/26/2024 09:19 AM EST
--- OUTSIDE RECORDS SUMMARY | 2025-02-17 08:00 | XMS_ITS ---
Author Organization [facility] Address [address] [place] [address] Care Team Providers Care Charging Crane Operator Name Role Phone Sharmaine WALLACE, Balbir Primary Care Provider Chris Douglas Unavailable [phone] Encounters Encounter Location Date Provider Diagnosis [address] [address] 02/17/2025 Chris Arambula Plan Of Treatment Next Appt Details Provider Name:Chris Arambula , 05/25/2025 08:30:00 AM, [address], [address], Progress Notes * Laron ARNOLDDOB: [birth year] (69 yo M)Acc No.[id number]:02/17/2025 Progress Note Patient: Katheryn Laron WALTON Provider: London Arambula DPM :1955 A ge:69 Y S ex:Male Date:02/17/2025 Address:[address] [place], [place] [id number] Pcp:Balbir Schmid MD Subjective: * Chief Complaints: [...] Arambula DPM Date: 04/19/2024 Generated for Ulisses roberts/Junior/Shi on: 05/26/2024 09:19 AM EST
--- NOTE | 2025-03-25 09:19 | MHC.PC.OV ---
Vital Signs 03/25/25 09:30 Height 5 ft 11 in Weight 193 lb 6 oz BMI 27.0 BP 136/66 Blood Pressure Location Rt brachial Position Sitting Respiration 15 Pulse 87 Pulse Source Pulse Oximeter Temp 98.2 F Temp Source Temporal Artery Scan Pulse Oximetry (%) 65 L Oxygen Delivery Method Room Air Intake Visit Reasons: f/u diabetes Intake Note: Laron presents in the office today for a follow up to his diabetes. Machine Buffer Required: No Allergies niacin (NIACIN) Adverse Reaction (Mild, Verified 03/25/25 09:28) RED FLUSH, SHAKING Medication List - Last Reconciled 03/25/25 by Balbir Schmid MD acamprosate 666 mg (2 x 333 mg) PO TID 30 days amlodipine 10 mg PO DAILY 30 days carvedilol 3.125 mg PO BID 30 days dulaglutide 4.5 mg (0.5 mL) subcut QWEEK 28 days escitalopram oxalate 10 mg PO DAILY 30 days finasteride 5 mg PO DAILY 90 days folic acid 1 mg PO DAILY 30 days furosemide 40 mg PO DAILY glipizide ER 2.5 mg PO DAILY 30 days magnesium oxide 800 mg (2 x 400 mg (241.3 mg magnesium)) PO DAILY metformin 250 mg (1/2 x 500 mg) PO BIDWMEAL 90 days naltrexone 50 mg PO DAILY 30 days spironolactone 25 mg PO BID thiamine HCl (vitamin B1) 100 mg PO DAILY 30 days Tobacco use date assessed: 03/25/25 Dental Screening Dental Screen Date: 03/25/25 Did you have a dental visit in the last 12 months?: No Did you have a dental problem in the last 6 months where you did not have access to dental care?: No Was dental information given to patient?: Patient declined HPI f/u diabetes HPI Details 69 y/o male presents to f/u diabetes. A1c today 03/25/25 8.4%. He is on dulaglutide 4.5mg, glipizide 2.5mg, metformin 250mg b.i.d. Blood pressure today 136/66, 87p. He is on spironolactone 25mg b.i.d, amlodipine 10mg daily, carvedilol 3.125mg b.i.d. [facility] Medical History Bleeding hemorrhoids Transaminitis Hemorrhoids without complication History of alcohol abuse PVD (peripheral vascular disease) Diabetic polyneuropathy associated with type 2 diabetes mellitus Diabetes type 2, controlled Alcohol abuse Hypertension Neuropathy Depression Anxiety Surgical History History of esophagogastroduodenoscopy (EGD) H/O colonoscopy Family History Mother No problems noted. Father No problems noted. Social History (Updated 03/25/25 @ 09:30 by Tabitha Peterson CMA) Household Members: Family Housing: House Do you presently have visiting nurse or other home services: No Alcohol intake: former Comment: Will drink beers intermittently during the week Patient Tobacco Use Status: Current everyday Tobacco user Tobacco use type: Cigarette Cigarettes Per Day: 4 Years Smoked: 50 e-Cigarette/Vaping Use: Never Used Second Hand Smoke Exposure: Yes service: No Current occupational status: retired Current occupational exposures/hazards: No Cognitive needs: Yes (cane) Hearing needs: No Vision needs: Yes (reading glasses) Questionnaire Thrive Questionnaire Date Thrive assessed: 05/03/24 DELORES-7 AMB Questionnaire DELORES-7 Date DELORES - 7 assessed: 01/20/25 Source: Developed by Drs. Jeff Thibodeaux, Leda Gould, Chacorta Glass and colleagues, with an educational channing from [employer]. Review of Systems Const Denies chills, Denies fatigue, Denies fever(s), Denies headache(s) and Denies weakness ENT Denies dizziness and Denies headache(s) Card Denies dyspnea Resp Denies cough, Denies dyspnea, Denies wheezing and Denies other (shortness of breath) Musc Denies numbness and Denies tingling Neuro Denies dizziness, Denies headache(s), Denies numbness, Denies tingling and Denies weakness Psych Denies anxiety and Denies depression Endo Denies fatigue Aller/Immun Denies wheezing Physical exam (Primary Care) Vital Signs: Last Vital Signs Temp 98.2 F 03/25/25 09:30 Pulse 87 03/25/25 09:30 Resp 15 03/25/25 09:30 BP 136/66 03/25/25 09:30 Pulse Ox 65 L 03/25/25 09:30 Oxygen Delivery Method Room Air 03/25/25 09:30 BMI result Body Mass Index 27.0 Tobacco/Smoking Status: Tobacco use Status Tobacco use date assessed 03/25/25 03/25/25 09:33 Patient Tobacco Use Status Current everyday Tobacco 03/25/25 09:29 Tobacco use type Cigarette 03/25/25 09:29 e-Cigarette/Vaping Use Never Used 03/25/25 09:29 Thrive Assessment: Date of Thrive Assessment Date Thrive assessed 05/03/24 03/25/25 09:20 Const General: well developed; No acute distress Nutritional Appearance: well nourished Orientation/consciousness: patient oriented x3 HENMT Head: Yes normocephalic and Yes atraumatic Eyes General: appearance normal, both eyes and all related structures Pupils: Equal, round and reactive pupils present EOM: EOMs intact bilaterally Resp Effort & Inspection: normal respiratory effort Auscultation: clear to auscultation bilaterally Cardio Rate: regular rate Rhythm: regular rhythm Heart sounds: S1 normal heart sound present, S2 normal heart sound present, no gallops, no murmurs and no rubs Neuro General: patient oriented x3 and gait normal Cranial nerves: Yes Equal, round and reactive pupils present Psych Affect: normal affect Results AMB Hemoglobin A1c AMB Hemoglobin A1c 8.4 % Last Edit by Tabitha Peterson CMA on 03/25/25 09:35 Results Reviewed Results Reviewed: Laboratory Last Values Hgb A1c (Clinic) 8.4 % (4.0-6.0) H 03/25/25 09:34 Coding Level of Care Code Est Pt Level 4 (34877) Diagnoses Diabetes mellitus with neuropathy E11.40 Essential hypertension I10 Alcohol abuse F10.10 Assessment & Plan Assessment & Plan (1) Diabetes mellitus with neuropathy: Code(s): E11.40 - Type 2 diabetes mellitus with diabetic neuropathy, unspecified Category: Medical Plan: A1c has improved to 8.4% but is still well above goal of 7%. Continue Trulicity and glipizide as prescribed Increasing metformin. He will take 250 mg a.m. and 500 mg p.m. Continue to monitor blood sugars (2) Essential hypertension: Code(s): I10 - Essential (primary) hypertension Category: Medical Plan: Blood pressure is controlled. Goal is less than 140/90 Continue current medications (3) Alcohol abuse: Comment: He is interested in treatment Code(s): F10.10 - Alcohol abuse, uncomplicated Category: Social Hx Plan: Patient is still working on abstinence and [facility] Encouraged him to continue abstinence. Continue follow-up with [facility] Orders: Orders AMB Hemoglobin A1c Today E11.40 - Type 2 diabetes mellitus with diabetic neuropathy, unspecified Complete Blood Count Auto Diff Today Z00.00 - Encounter for general adult medical examination without abnormal findings [facility] [place]. Panel Fast Today Z00.00 - Encounter for general adult medical examination without abnormal findings Microalbumin, Random (w Creat) Today I10 - Essential (primary) hypertension UA CC w/rflx Micro + Cult Today Z00.00 - Encounter for general adult medical examination without abnormal findings Medications: Changed From metformin 250 mg (1/2 x 500 mg) PO BIDWMEAL 90 days 90 tabs 3RF To metformin 250 mg a.m. and 500 mg p.m. orally 2 times per day with meals; 135 tabs 3RF 90 days
--- OUTSIDE RECORDS SUMMARY | 2025-03-25 09:19 | XMS_ITS | Clinical Summary ---
Author Organization [facility] Address [address] [place], [place] [id number] Phone Care Team Providers Care Stringer Machine Tender Name Role Phone Brissa Turner MD Primary [...] Arnold Payer ID:Not on file Type:HMO Address: [place] [id number] [place], [place] [address] [place] [address] [place] [address] [facility]MO [facility] H[facility] Care Teams Stringer Machine Tender Relationship Specialty Start Date End Date Brissa Turner MD [address] [place] [address] 1 [place] [address] PCP - General Internal Medicine 04/19/20 Additional Source Comments The information contained in this document represents components of the legal health record. It is not the complete legal health record.[facility]
--- OUTSIDE RECORDS SUMMARY | 2025-03-25 09:19 | XMS_ITS | Clinical Summary ---
Author Organization [facility] Address [address] [place] [id number] Care Team Providers Care Hook And Eye Attacher Name Role Phone Unavailable Primary Care Provider [...] patient's age to complete this topic Insurance [facility]
--- OUTSIDE RECORDS SUMMARY | 2025-03-25 09:20 | XMS_ITS | Patient Health Record ---
Author Organization [facility] Address [address] [place] [address] Care Team Providers Care Superintendent Drilling Name Role Phone Balbir Schmid MD Primary Care Provider Chris Douglas Unavailable [phone] Allergies Allergen (clinical drug ingredient) Drug/Non Drug [...] Problem Acquired hammer toe of right foot (5401571285502276 ) Other hammer toe(s) (acquired), right foot (M20.41) Active confirmed Response to treatment, Isauro dixon Problem Acquired hammer toe of left foot ([id number] ) Other hammer toe(s) (acquired), left foot (M20.42) Active confirmed Response to treatment, Isauro t Problem Polyneuropathy due to type 2 diabetes mellitus (789403904) Type 2 diabetes mellitus with diabetic polyneuropathy (E11.42) Active confirmed Vital Signs Blood pressure diastolic 70 mm Hg 11/01/2024 Height 5ft 11in in 11/01/2024 Blood pressure systolic 128 mm Hg 11/01/2024 Weight 202 lbs 11/01/2024 BMI 28.17 kg/m2 11/01/2024 Procedures Procedure Date Ordered Date Performed Result Body Sit e 27987-DVUQYRR NAIL, 6 OR MORE 05/10/2024 N/A 55655-SVQC SKIN LESIONS, OVER 4 05/10/2024 N/A 73604-ICXNFIZ NAIL, 6 OR MORE 11/01/2024 N/A 17585-OCSF SKIN LESIONS, OVER 4 11/01/2024 N/A Encounters Encounter Location Date Provider Diagnosis [facility] [address] [address] 05/10/2024 Chris Arambula Type 2 diabetes mellitus with diabetic polyneuropathy E11.42 ; Tinea unguium B35.1 ; Other hammer toe(s) (acquired), right foot M20.41 and Other hammer toe(s) (acquired), [facility]20.42 [facility] [address] [address] 11/01/2024 Chris Arambula Type 2 diabetes mellitus with diabetic polyneuropathy E11.42 and Tinea unguium B35.1 [facility] [address] [place] [address] 08/09/2024 Chris Arambula [address] [address] 02/15/2025 Chris Arambula Assessments Encounter Date Diagnosis [...] Treatment Pending Test Test Name Order Date 01444-DVXJKQL NAIL, 6 OR MORE 12/06/2021 80845-CZKXEYD NAIL, 6 OR MORE 02/27/2022 53586-AYECFCG NAIL, 6 OR MORE 05/29/2022 90197-EXLHMHE NAIL, 6 OR MORE 08/28/2022 95540-MOFQFXF NAIL, 6 OR MORE 12/04/2022 77226-GTIVPZO NAIL, 6 OR MORE 03/12/2023 44749-QXOAMAB NAIL, 6 OR MORE 06/26/2023 86954-ONEAVVD NAIL, 6 OR MORE 11/03/2023 17908-WMIWEMA NAIL, 6 OR MORE 02/02/2024 49185-RVOEKZD NAIL, 6 OR MORE 05/10/2024 29417-FYHMVPL NAIL, 6 OR MORE 11/01/2024 98398-QOLT SKIN LESIONS, OVER 4 11/02/19 25 33105-UILG SKIN LESIONS, OVER 4 05/10/19 25 77183-EDHS SKIN LESIONS, OVER 4 02/02/20 24 07241-MYXV SKIN LESIONS, OVER 4 11/03/19 24 14781-QTRE SKIN LESIONS, OVER 4 06/26/19 24 30209-AEVP SKIN LESIONS, OVER 4 03/12/20 23 80178-JMDQ SKIN LESIONS, OVER 4 12/05/19 23 35542-QEAG SKIN LESIONS, OVER 4 08/29/19 23 22550-BWEM SKIN LESIONS, OVER 4 05/30/19 23 76675-KNCK SKIN LESIONS, 2 TO 4 02/28/20 22 49673-JDCR SKIN LESIONS, 2 TO 4 12/07/19 Next Appt Details Provider Name:Chris Arambula , 05/25/2025 08:30:00 AM, [address] [facility], [facility] [address], [place], [address], Insurance Providers Payer Name Payer Address Payer Phone Subscriber Number Group Number Insured Name Patient Relationship to Insured Coverage Start Date Coverage End Date Medicare National [employer] [address] [facility] [address] [id number] Laron Morrison Self - patient is the insured [employer] [address] [place] [address] [id number] Laron Morrison Self - patient is the insured Medical (General) History Medical History History ICD Code type II diabetes Polyneuropathy Alcohol abuse Anxiety Depression Hypertension Peripheral vascular disease Back,Hip,and Knee pain Chron's/ Colitis CAD Surgical History Surgery Date(Month/Year) cataract surgery Hospitalization History Reason Date(Month/Year) [facility]- leg inflammation/swelling 08/30
[2025-03-25 09:30] VITALS: BP 136/66; PULSE 87; RESP 15; TEMP 36.8; O2SAT 65; BMI 27.0
== END 2025-03-25 10:15 | disposition home or self-care (01) ==
LOC: HO.HMCFM 09:17
PROVIDERS: PCP Family Medicine; Visit Provider Family Medicine
DX: E11.40 Type 2 diabetes mellitus with diabetic neuropathy, unspecified (principal); I10 Essential (primary) hypertension; F10.10 Alcohol abuse, uncomplicated

== ENCOUNTER → 2025-03-25 09:16 | Outpatient (BNVA) | payer MEDICARE, SELFPAY | PROVIDERS: PCP Family Medicine; Visit Provider Family Medicine | DX: E11.40 Type 2 diabetes mellitus with diabetic neuropathy, unspecified (principal); I10 Essential (primary) hypertension; F10.10 Alcohol abuse, uncomplicated; Z72.0 Tobacco use; Z79.85 Long-term (current) use of injectable non-insulin antidiabetic drugs | CPT/HCPCS: 83036; 99212 ==